=== PATIENT | female | born 1945 ===

== ENCOUNTER 2017-02-25 13:39 | Emergency (ER) | payer MEDICARE, MEDICAID ==
[2017-02-25 13:40] VITALS: BMI 27.7
[2017-02-25 14:15] VITALS: RESP 18
[2017-02-25] MEDS ORDERED: DiphenhydrAMINE 50 mg/ml Inj IM STA (15:35)
[2017-02-25] MEDS ORDERED: DiphenhydrAMINE 50 mg/ml Inj ONE (16:00)
--- NOTE | 2017-02-25 16:08 | C.PDOC ---
History Of Present Illness 71 y/o female presents to the ED complaining of itchy rash caused by unknown antibiotic. She states that Dr. Davenport gave her the antibiotic for unknown ear issue but she threw it away a few days ago when she noticed the rash. Patient also notes redness, itching, and pain to the b/l shins, left worse than right, for which she is being treated by Dr. Calderon. Patient states, "Dr. Calderon has not seen how bad it's gotten." She denies any fever, chills, shortness of breath , sensation of throat closing, wheezing, or chest pain. Time Seen by Provider: 02/25/17 15:17 Chief Complaint (Nursing): Allergic Reaction History Per: Patient History/Exam Limitations: no limitations Onset/Duration Of Symptoms: Days, Persistent Current Symptoms Are (Timing): Still Present Possible Cause: Medication Associated Symptoms: Skin Rash, Itching, Redness Recent travel outside of the [place]: No Past Medical History Reviewed: Historical Data, Nursing Documentation, Vital Signs Vital Signs: Last Vital Signs Temp 98.3 F 02/25/17 17:06 Pulse 87 02/25/17 17:06 Resp 18 02/25/17 17:06 BP 175/71 H 02/25/17 17:06 Pulse Ox 99 02/25/17 17:06 - Medical History PMH: Anemia, Anxiety, Asthma, Bronchitis, Depression, Diabetes, Gastritis, Gall Bladder Disease, Hepatitis (C), HTN, Osteoporosis, Chronic Pain Surgical History: Appendectomy, Cholecystectomy - [facility] Procedures CORONAR ARTERIOGR-2 CATH (08/02/15) INSPECTION OF LOWER INTESTINAL TRACT, ENDO (07/11/16) LEFT HEART CARDIAC CATH (08/02/15) LT HEART ANGIOCARDIOGRAM (08/02/15) OTHER ENDOSCOPY OF SM INTEST (07/09/13) VACCINATION NEC (07/16/14) Family History: States: No Known Family Hx - Social History Hx Tobacco Use: No Hx Alcohol Use: No Hx Substance Use: No - Immunization History Hx Tetanus Toxoid Vaccination: No Hx Influenza Vaccination: No Hx Pneumococcal Vaccination: Yes Review Of Systems Except As Marked, All Systems Reviewed And Found Negative. Constitutional: Negative for: Fever, Chills ENT: Negative for: Throat Swelling Cardiovascular: Negative for: Chest Pain Respiratory: Negative for: Shortness of Breath, Wheezing Skin: Positive for: Rash Physical Exam - Physical Exam Appears: Non-toxic, No Acute Distress Skin: Warm, Dry, Rash (urticarial rash to back and abdomen), Ecchymosis (scant, b/l shins, left > right) Head: Atraumatic, Normacephalic Eye(s): bilateral: Normal Inspection, PERRL Oral Mucosa: Moist Tongue: Normal Appearing, No Swelling Lips: Normal Appearing, No Swelling Throat: Normal Neck: Normal ROM, Supple Chest: Symmetrical Cardiovascular: Rhythm Regular Respiratory: Normal Breath Sounds, No Rales, No Rhonchi, No Wheezing Gastrointestinal/Abdominal: Soft, No Tenderness Extremity: Normal ROM, Other (2 + edema b/l lower extremities) Neurological/Psych: Oriented x3, Normal Speech, Normal Cognition ED Course And Treatment O2 Sat by Pulse Oximetry: 100 (a) Pulse Ox Interpretation: Normal Medical Decision Making Medical Decision Making: Plan: * Benadryl IM, Prednisone PO On reevaluation, the patient is resting comfortably, tolerating PO, has no shortness of breath, is able to tolerate secretions, has no intra-oral swelling , has no stridor; rash and pruritus have improved. Patient was advised to avoid potential allergens and to follow up with their physician in 1-2 days for further evaluation. Disposition - Disposition Referrals: Belinda Calderon MD [Medical Doctor] - Disposition: HOME/ ROUTINE Disposition Time: 16:45 Condition: GOOD Additional Instructions: Follow up with the medical doctor within 1-2 days. Return if worsened. 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 - Scribe Statement The provider has reviewed the documentation as recorded by the Scribe (Mariaelena Pearson) All medical record entries made by the Scribe were at my direction and personally dictated by me. I have reviewed the chart and agree that the record accurately reflects my personal performance of the history, physical exam, medical decision making, and the department course for this patient. I have also personally directed, reviewed, and agree with the discharge instructions and disposition.
[2017-02-25 17:08] VITALS: BP 175/71; PULSE 87; TEMP 98.3
[2017-03-01 10:23] VITALS: O2SAT 100
== END 2017-02-25 17:06 | disposition home or self-care (01) ==
LOC: C.ER 13:39
DX: L50.0 Allergic urticaria (principal)
CPT/HCPCS: 96372; 99284; J1200

== ENCOUNTER 2017-06-07 16:52 | Emergency (ER) | payer OTHER, MEDICARE, MEDICAID ==
[2017-06-07 16:52] VITALS: BMI 27.7
[2017-06-07 17:14] VITALS: RESP 18
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
--- NOTE | 2017-06-07 17:59 | RAD ---
HISTORY: COMPARISON: 07/11/2016 TECHNIQUE: Chest PA and lateral FINDINGS: LINES AND TUBES: None. LUNG AND PLEURA: The lungs are well inflated. There is mild pulmonary venous congestion. No focal consolidation. HEART AND MEDIASTINUM: The heart is not enlarged. The hilar and mediastinal contours are within normal limits. SKELETAL STRUCTURES: The bony structures are within normal limits for the patient's age. VISUALIZED UPPER ABDOMEN: Normal. OTHER FINDINGS: None. IMPRESSION: Mild pulmonary venous congestion. No active pulmonary disease.
[2017-06-07 18:30] VITALS: BP 114/65; PULSE 77; TEMP 98.1
[2017-06-08 09:11] VITALS: O2SAT 99
== END 2017-06-07 18:30 | disposition home or self-care (01) ==
LOC: C.ER 16:52
DX: M54.6 Pain in thoracic spine (principal)
CPT/HCPCS: 71020; 96372; 99285; J1885

== ENCOUNTER 2017-06-25 13:22 | Inpatient (IN) | payer MEDICARE, MEDICAID ==
[2017-06-25 13:23] VITALS: BMI 27.7
[2017-06-25] MEDS ORDERED: Lidocaine 5% Patch TD STA (14:10)
[2017-06-25] MEDS ORDERED: Lidocaine 5% Patch TD ONE (14:14)
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
[2017-06-25 16:20] LABS: BASO % 0.6 % (0.0-2.0); EOS # 0.1 K/uL (0.0-0.7); EOS % 2.7 % (0.0-4.0); HEMATOCRIT 24.5 % (34.0-47.0); LYMPH # 0.6 K/uL (1.0-4.3); LYMPH % 20.2 % (20.0-40.0); MEAN CELL VOLUME 91.5 fL (81.0-99.0); MEAN CORPUSCULAR HGB CONC 33.9 g/dL (33.0-37.0); MEAN PLATELET VOLUME 9.3 fL (7.2-11.7); MONO # 0.3 K/uL (0.0-0.8); MONO % 9.9 % (0.0-10.0); RED CELL DISTRIBUTION WIDTH 17.7 % (11.5-14.5); WHITE BLOOD COUNT 2.8 K/uL (4.8-10.8)
[2017-06-25 16:30] LABS: INR 1.4; POTASSIUM 4.8 mmol/L (3.6-5.2)
[2017-06-25 16:32] LABS: ALB/GLOB RATIO 0.9 (1.0-2.1); BILIRUBIN,TOTAL 1.7 mg/dL (0.2-1.3); TOTAL PROTEIN 6.2 g/dL (6.3-8.3)
[2017-06-25 16:33] LABS: CALCIUM 9.2 mg/dl (8.6-10.4)
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
[2017-06-25 20:24] LABS: RBC URINE < 1 /hpf (0-3); URINE BILIRUBIN NEGATIVE (NEGATIVE); URINE BLOOD NEGATIVE (NEGATIVE); URINE COLOR Yellow (YELLOW); URINE GLUCOSE (UA) 3+ mg/dL (Normal); URINE KETONE NEGATIVE (NEGATIVE); URINE LEUKOCYTE ESTERASE NEG Leu/uL (Negative); URINE PROTEIN NEGATIVE (NEGATIVE); URINE UROBILINOGEN NORMAL mg/dL (0.2-1.0); WBC URINE 1 /hpf (0-5)
[2017-06-25] MEDS: (Novolog) Insulin Aspart, Recombinant 100 u/ml 10 ml vial SC SCH (21:59)
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
[2017-06-26] MEDS: (Novolog) Insulin Aspart, Recombinant 100 u/ml 10 ml vial SC SCH ×4 (08:22→21:56)
[2017-06-26] MEDS: Pantoprazole 40 mg EC Tab PO SCH ×2 (09:13→09:28)
--- NOTE | 2017-06-26 09:14 | CP.PCM.CON ---
History of Present Illness - History of Present Illness History of Present Illness: CONSULT DICTATED HEADACHE POST CONCUSSION ABN CAT SCAN - I DOUBT SDH NEEDS MRI NO ANTIPLATELETS AND NSAIDS Past Patient History - Infectious Disease Hx of Infectious Diseases: None - Past Medical History & Family History Past Medical History?: Yes - Past Social History Smoking Status: Former Smoker - CARDIAC Hx Hypertension: Yes - PULMONARY Hx Asthma: Yes Hx Bronchitis: Yes - NEUROLOGICAL Hx Neurological Disorder: Yes Other/Comment: SEVERE NEUROPATHY, hepatic encephalopathy - HEENT Hx HEENT Problems: Yes Other/Comment: Dimished vision bilateral - RENAL Hx Chronic Kidney Disease: No - ENDOCRINE/METABOLIC Hx Endocrine Disorders: Yes Hx Diabetes Mellitus Type 2: Yes - HEMATOLOGICAL/ONCOLOGICAL Hx Anemia: Yes Hx Bruising: Yes Hx Hepatitis C: Yes - INTEGUMENTARY Hx Dermatological Problems: No Hx Psoriasis: Yes - MUSCULOSKELETAL/RHEUMATOLOGICAL Hx Arthritis: Yes (KNEE) Hx Degenerative Joint Disease: Yes Hx Falls: Yes Hx Osteoporosis: Yes - GASTROINTESTINAL Hx Gall Bladder Disease: Yes Hx Gastritis: Yes - GENITOURINARY/GYNECOLOGICAL Hx Genitourinary Disorders: No - PSYCHIATRIC Hx Anxiety: Yes Hx Depression: Yes Hx Substance Use: No - SURGICAL HISTORY Hx Appendectomy: Yes Hx Cholecystectomy: Yes - ANESTHESIA Hx Anesthesia: Yes Hx Anesthesia Reactions: No Hx Malignant Hyperthermia: No Has any member of the family had a problem w/ anesthesia?: No Meds Allergies/Adverse Reactions: Allergies Allergy/AdvReac Type Severity Reaction Status Date / Time acetaminophen [From Percocet] Allergy RASH Verified 06/07/17 17:14 aspirin Allergy RASH Verified 06/07/17 17:14 oxycodone HCl [From Percocet] Allergy RASH Verified 06/07/17 17:14 Penicillins Allergy RASH Verified 06/07/17 17:14 - Medications Medications: Current Medications Hydromorphone HCl (Dilaudid) 2 mg IVP Q6H PRN PRN Reason: Pain, severe (8-10) Last Admin: 06/25/17 22:57 Dose: 2 mg Insulin Aspart (Novolog) 0 unit SC ACHS INDRA PRN Reason: Protocol Last Admin: 06/26/17 08:22 Dose: 6 unit Lactulose (Enulose) 20 gm PO BID INDRA Pantoprazole Sodium (Protonix Ec Tab) 40 mg PO DAILY INDRA Temazepam (Restoril) 15 mg PO HS PRN PRN Reason: Insomnia Last Admin: 06/25/17 21:57 Dose: 15 mg Results - Vital Signs Recent Vital Signs: Last Vital Signs Temp 97.7 F 06/26/17 07:00 Pulse 103 H 06/26/17 07:00 Resp 20 06/26/17 07:00 BP 113/73 06/26/17 07:00 Pulse Ox 98 06/26/17 07:00 - Labs Result Diagrams: 06/25/17 16:15 06/25/17 16:15 Labs: Laboratory Results - last 24 hr 06/25/17 06/25/17 06/26/17 20:13 21:27 02:14 POC Glucose (mg/dL) 375 H 244 H Ammonia Prolactin Urine Color Yellow Urine Clarity Clear Urine pH 5.0 Ur Specific [place] 1.014 Urine Protein Negative Urine Glucose (UA) 3+ H Urine Ketones Negative Urine Blood Negative Urine Nitrate Negative Urine Bilirubin Negative Urine Urobilinogen Normal Ur Leukocyte Esterase Neg Urine WBC (Auto) 1 Urine RBC (Auto) < 1 Ur Squamous Epith Cells 3 06/26/17 06/26/17 06/26/17 06:03 07:58 07:58 POC Glucose (mg/dL) 269 H Ammonia 79 H D Prolactin 67.7 H Urine Color Urine Clarity Urine pH Ur Specific [place] Urine Protein Urine Glucose (UA) Urine Ketones Urine Blood Urine Nitrate Urine Bilirubin Urine Urobilinogen Ur Leukocyte Esterase Urine WBC (Auto) Urine RBC (Auto) Ur Squamous Epith Cells
[2017-06-26 11:41] LABS: IRON 187 ug/dL (37-170)
[2017-06-26 12:09] LABS: HEMATOCRIT 23.3 % (34.0-47.0); MEAN CORPUSCULAR HEMOGLOBIN 30.5 pg (27.0-31.0); MEAN CORPUSCULAR HGB CONC 34.4 g/dL (33.0-37.0); RED CELL DISTRIBUTION WIDTH 17.2 % (11.5-14.5); WHITE BLOOD COUNT 3.1 K/uL (4.8-10.8)
[2017-06-26 12:10] LABS: BASO % 0.3 % (0.0-2.0); EOS # 0.1 K/uL (0.0-0.7); EOS % 1.9 % (0.0-4.0); LYMPH # 0.5 K/uL (1.0-4.3); LYMPH % 14.4 % (20.0-40.0); MEAN PLATELET VOLUME 9.4 fL (7.2-11.7); MONO # 0.2 K/uL (0.0-0.8); MONO % 7.3 % (0.0-10.0); NRBC % 0.1 % (0.0-2.0)
[2017-06-26 12:13] LABS: MEAN CELL VOLUME 88.7 fL (81.0-99.0)
--- NOTE | 2017-06-26 12:52 | MRI ---
PROCEDURE: MRI BRAIN WITHOUT CONTRAST HISTORY: sub dural hematoma in falx COMPARISON: None. TECHNIQUE: Multiplanar, multisequence MR images of the brain were obtained without intravenous contrast enhancement. FINDINGS: HEMORRHAGE: There is subdural hematoma seen at the right aspect of the posterior infarcts and along the right temporal parietal and occipital convexity. The maximum thickness of this subdural hematoma seen at the temporal region 4.5 millimeter. The subdural hematoma demonstrate hyperintense T1, hyperintense T2 and hyperintense FLAIR signals which indicated subacute hematoma. DWI: No evidence of an acute or early subacute infarction. The right convexity hematoma also demonstrate hyperintense DW I signal. BRAIN PARENCHYMA: No mass effect or edema. Moderate atrophy is noted. There is extensive white matter changes seen suggestive but nonspecific for chronic microvascular ischemic disease. Small foci of hypo intense T1 signal seen in the bilateral lentiform nucleus may represent old lacunar infarct versus dilated perivascular space. VENTRICLES: Unremarkable. No hydrocephalus. CRANIUM: Unremarkable. ORBITS: Grossly unremarkable. PARANASAL SINUSES/MASTOIDS: Clear VASCULAR SYSTEM: Skull base flow voids intact. OTHER FINDINGS: None. IMPRESSION: Subacute subdural hematoma along the posterior aspect of the right cerebral convexity and posterior right aspect of the falx. Maximum thickness of the subdural hematoma is 4.5 millimeter Moderate atrophy and extensive white matter changes suggestive but nonspecific for chronic microvascular ischemic disease. No evidence of acute or subacute infarction.
--- NOTE | 2017-06-26 16:53 | CP.PCM.CON ---
History of Present Illness - History of Present Illness History of Present Illness: CC: rectal Bleed HPI: Patient is a 72 year old woman with multiple medical problems, admitted for possible subdural hematoma. Patient known to me with history of Cirrhosis and thromboctopenia, esophageal and gastric varices, and chronic intermittent rectal bleeds due to thrombocytopenia. Colonoscopy and endoscopy were performed last year and revealed varices in esophagus and stomach, diverticulosis in the colon. She is followed by Dr Melany Arguello for cirrhosis and apparently treated with Harvoni and resulted in undetectable Hep C viral load. Sono in December did not reveal any suspicious lesions in liver for hepatoma. Patient saw red blood per rectum last night after taking Lactulose and developed profuse vomiting, nonbloody, of digested food earlier today after taking Lactulose. The patient has chronic neuropathy symptoms, presumably from Diabetes and chronic leg edema. Patient is chronically anemic and now has Hgb 8, essentially unchanged from baseline. Review of Systems - Constitutional Constitutional: Chills, Fatigue, Weakness - EENT Eyes: absent: Change in Vision Ears: absent: Ear Pain Nose/Mouth/Throat: absent: Epistaxis, Hoarsness - Cardiovascular Cardiovascular: absent: Chest Pain - Respiratory Respiratory: absent: Dyspnea, Hemoptysis - Gastrointestinal Gastrointestinal: Abdominal Pain, Bloating, Constipation, Hematochezia, Nausea. absent: Coffee Ground Emesis, Heartburn, Hematemesis, Melena - Genitourinary Genitourinary: absent: Difficulty Urinating - Musculoskeletal Musculoskeletal: Myalgias. absent: Back Pain - Integumentary Integumentary: absent: Bleeding Lesions, Jaundice - Neurological Neurological: Paresthesias. absent: Headaches - Psychiatric Psychiatric: absent: Behavioral Changes - Endocrine Endocrine: absent: Polydipsia - Hematologic/Lymphatic Hematologic: Easy Bleeding, Easy Bruising Past Patient History - Infectious Disease Hx of Infectious Diseases: None - Past Medical History & Family History Past Medical History?: Yes - Past Social History Smoking Status: Former Smoker - CARDIAC Hx Hypertension: Yes - PULMONARY Hx Asthma: Yes Hx Bronchitis: Yes - NEUROLOGICAL Hx Neurological Disorder: Yes Other/Comment: SEVERE NEUROPATHY, hepatic encephalopathy - HEENT Hx HEENT Problems: Yes Other/Comment: Dimished vision bilateral - RENAL Hx Chronic Kidney Disease: No - ENDOCRINE/METABOLIC Hx Endocrine Disorders: Yes Hx Diabetes Mellitus Type 2: Yes - HEMATOLOGICAL/ONCOLOGICAL Hx Anemia: Yes Hx Bruising: Yes Hx Hepatitis C: Yes - INTEGUMENTARY Hx Dermatological Problems: No Hx Psoriasis: Yes - MUSCULOSKELETAL/RHEUMATOLOGICAL Hx Arthritis: Yes (KNEE) Hx Degenerative Joint Disease: Yes Hx Falls: Yes Hx Osteoporosis: Yes - GASTROINTESTINAL Hx Gall Bladder Disease: Yes Hx Gastritis: Yes - GENITOURINARY/GYNECOLOGICAL Hx Genitourinary Disorders: No - PSYCHIATRIC Hx Anxiety: Yes Hx Depression: Yes Hx Substance Use: No - SURGICAL HISTORY Hx Appendectomy: Yes Hx Cholecystectomy: Yes - ANESTHESIA Hx Anesthesia: Yes Hx Anesthesia Reactions: No Hx Malignant Hyperthermia: No Has any member of the family had a problem w/ anesthesia?: No Meds Allergies/Adverse Reactions: Allergies Allergy/AdvReac Type Severity Reaction Status Date / Time acetaminophen [From Percocet] Allergy RASH Verified 06/07/17 17:14 aspirin Allergy RASH Verified 06/07/17 17:14 oxycodone HCl [From Percocet] Allergy RASH Verified 06/07/17 17:14 Penicillins Allergy RASH Verified 06/07/17 17:14 - Medications Medications: Current Medications Hydromorphone HCl (Dilaudid) 2 mg IVP Q6H PRN PRN Reason: Pain, severe (8-10) Last Admin: 06/25/17 22:57 Dose: 2 mg Insulin Aspart (Novolog) 0 unit SC ACHS INDRA PRN Reason: Protocol Last Admin: 06/26/17 12:20 Dose: 2 unit Lactulose (Enulose) 20 gm PO TID [facility] [place] Last Admin: 06/26/17 14:24 Dose: Not Given Pantoprazole Sodium (Protonix Ec Tab) 40 mg PO DAILY [facility] Last Admin: 06/26/17 09:28 Dose: Not Given Temazepam (Restoril) 15 mg PO HS PRN PRN Reason: Insomnia Last Admin: 06/25/17 21:57 Dose: 15 mg Physical Exam - Constitutional Appears: No Acute Distress, Chronically Ill - Head Exam Head Exam: ATRAUMATIC, NORMOCEPHALIC - Eye Exam Eye Exam: Normal appearance (Pale conjunctivae). absent: Scleral icterus - ENT Exam ENT Exam: Mucous Membranes Moist, Normal Exam - Neck Exam Neck exam: Positive for: Normal Inspection. Negative for: Thyromegaly - Respiratory Exam Respiratory Exam: Clear to Auscultation Bilateral - Cardiovascular Exam Cardiovascular Exam: REGULAR RHYTHM - GI/Abdominal Exam GI & Abdominal Exam: Soft. absent: Distended, Guarding, Mass, Organomegaly, Tenderness - Rectal Exam Rectal Exam: Deferred - Extremities Exam Extremities exam: Positive for: pedal edema - Back Exam Back exam: NORMAL INSPECTION - Neurological Exam Neurological exam: Alert, Oriented x3 - Psychiatric Exam Psychiatric exam: Normal Affect, Normal Mood - Skin Skin Exam: Normal Color Results - Vital Signs Recent Vital Signs: Last Vital Signs Temp 97.7 F 06/26/17 07:00 Pulse 110 H 06/26/17 12:40 Resp 20 06/26/17 07:00 BP 113/73 06/26/17 07:00 Pulse Ox 98 06/26/17 07:00 - Labs Result Diagrams: 06/26/17 12:06 06/25/17 16:15 Labs: Laboratory Results - last 24 hr 06/25/17 06/25/17 06/26/17 20:13 21:27 02:14 WBC RBC Hgb Hct MCV MCH MCHC RDW Plt Count Manual Plt Count MPV Neut % (Auto) Lymph % (Auto) [place] % (Auto) Eos % (Auto) Baso % (Auto) Neut # Lymph # [place] # Eos # Baso # Fibrinogen POC Glucose (mg/dL) 375 H 244 H Iron TIBC % Saturation Ferritin Ammonia Vitamin B12 Prolactin Urine Color Yellow Urine Clarity Clear Urine pH 5.0 Ur Specific [place] 1.014 Urine Protein Negative Urine Glucose (UA) 3+ H Urine Ketones Negative Urine Blood Negative Urine Nitrate Negative Urine Bilirubin Negative Urine Urobilinogen Normal Ur Leukocyte Esterase Neg Urine WBC (Auto) 1 Urine RBC (Auto) < 1 Ur Squamous Epith Cells 3 06/26/17 06/26/17 06/26/17 06:03 07:58 07:58 WBC RBC Hgb Hct MCV MCH MCHC RDW Plt Count Manual Plt Count MPV Neut % (Auto) Lymph % (Auto) [place] % (Auto) Eos % (Auto) Baso % (Auto) Neut # Lymph # [place] # Eos # Baso # Fibrinogen POC Glucose (mg/dL) 269 H Iron TIBC % Saturation Ferritin Ammonia 79 H D Vitamin B12 Prolactin 67.7 H Urine Color Urine Clarity Urine pH Ur Specific [place] Urine Protein Urine Glucose (UA) Urine Ketones Urine Blood Urine Nitrate Urine Bilirubin Urine Urobilinogen Ur Leukocyte Esterase Urine WBC (Auto) Urine RBC (Auto) Ur Squamous Epith Cells 06/26/17 06/26/17 06/26/17 10:51 11:21 11:21 WBC RBC Hgb Hct MCV MCH MCHC RDW Plt Count Manual Plt Count 34 L MPV Neut % (Auto) Lymph % (Auto) [place] % (Auto) Eos % (Auto) Baso % (Auto) Neut # Lymph # [place] # Eos # Baso # Fibrinogen 158 L POC Glucose (mg/dL) 169 H Iron TIBC % Saturation Ferritin Ammonia Vitamin B12 Prolactin Urine Color Urine Clarity Urine pH Ur Specific [place] Urine Protein Urine Glucose (UA) Urine Ketones Urine Blood Urine Nitrate Urine Bilirubin Urine Urobilinogen Ur Leukocyte Esterase Urine WBC (Auto) Urine RBC (Auto) Ur Squamous Epith Cells 06/26/17 06/26/17 06/26/17 11:21 11:21 12:06 WBC 3.1 L RBC 2.63 L Hgb 8.0 L Hct 23.3 L MCV 88.7 D MCH 30.5 MCHC 34.4 RDW 17.2 H Plt Count 37 L Manual Plt Count MPV 9.4 Neut % (Auto) 76.1 H Lymph % (Auto) 14.4 L [place] % (Auto) 7.3 Eos % (Auto) 1.9 Baso % (Auto) 0.3 Neut # 2.4 Lymph # 0.5 L [place] # 0.2 Eos # 0.1 Baso # 0.0 Fibrinogen POC Glucose (mg/dL) Iron 187 H TIBC 326 % Saturation 57 H Ferritin 26.6 Ammonia Vitamin B12 893 Prolactin Urine Color Urine Clarity Urine pH Ur Specific [place] Urine Protein Urine Glucose (UA) Urine Ketones Urine Blood Urine Nitrate Urine Bilirubin Urine Urobilinogen Ur Leukocyte Esterase Urine WBC (Auto) Urine RBC (Auto) Ur Squamous Epith Cells Assessment & Plan (1) Subdural hematoma Assessment and Plan: Workup by neurology in progress Status: Acute (2) GI bleed Assessment and Plan: Hematochezia- chronic intermittent due to thrombocytopenia. No major drop in Hgb Rec: decrease Lactulose to once daily. Add Xifaxan. Would not transfuse PRBCs unless Hgb drops below 8 due to varices and risk of bleeding varices from overtransfusion. If bleed persists consider transfusing platelets Status: Acute (3) Hepatic encephalopathy Assessment and Plan: Stable Since patient not tolerating Lactulose in hospital, can try Xifaxan instead Status: Acute (4) Cirrhosis of liver Assessment and Plan: Managed as outpatient by Dr Arguello. Stable. Encephalopathy, thrombocytopenia, and varices present. Should be on beta blockers too Status: Chronic - Date & Time Date: 06/26/17 Time: 16:59
--- NOTE | 2017-06-26 17:59 | CARD ---
APPROVED REPORT EKG Measurement Heart [id number] <Conclusion> Normal sinus rhythm Normal ECG
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
[2017-06-27 07:45] LABS: BASO % 0.6 % (0.0-2.0); EOS # 0.1 K/uL (0.0-0.7); EOS % 3.1 % (0.0-4.0); HEMATOCRIT 22.1 % (34.0-47.0); LYMPH # 0.5 K/uL (1.0-4.3); LYMPH % 16.7 % (20.0-40.0); MEAN CELL VOLUME 88.7 fL (81.0-99.0); MEAN CORPUSCULAR HEMOGLOBIN 30.5 pg (27.0-31.0); MEAN CORPUSCULAR HGB CONC 34.3 g/dL (33.0-37.0); MEAN PLATELET VOLUME 9.1 fL (7.2-11.7); MONO # 0.2 K/uL (0.0-0.8); MONO % 7.5 % (0.0-10.0); NRBC % 0.1 % (0.0-2.0); RED CELL DISTRIBUTION WIDTH 17.2 % (11.5-14.5); WHITE BLOOD COUNT 2.8 K/uL (4.8-10.8)
[2017-06-27] MEDS: (Novolog) Insulin Aspart, Recombinant 100 u/ml 10 ml vial SC SCH ×4 (08:22→22:08)
--- NOTE | 2017-06-27 09:52 | CP.PCM.PN ---
Subjective - Date & Time of Evaluation Date of Evaluation: 06/27/17 Time of Evaluation: 03:00 - Subjective Subjective: Patient seen- pain is improving ongoing blood transfusion no headache discussion of medication adjustment no change in sensorium discussion of subacute when ready to discharge Objective - Vital Signs/Intake and Output Vital Signs (last 24 hours): Temp Pulse Resp BP Pulse Ox 98.2 F 75 18 117/55 L 97 06/27/17 07:05 06/27/17 08:00 06/27/17 07:05 06/27/17 07:05 06/27/17 07:05 - Medications Medications: Current Medications Hydromorphone HCl (Dilaudid) 2 mg IVP Q6H PRN PRN Reason: Pain, severe (8-10) Last Admin: 06/26/17 21:58 Dose: 2 mg Insulin Aspart (Novolog) 0 unit SC ACHS INDRA PRN Reason: Protocol Last Admin: 06/27/17 08:22 Dose: 4 unit Lactulose (Enulose) 20 gm PO HS [facility] Last Admin: 06/26/17 22:01 Dose: Not Given Pantoprazole Sodium (Protonix Ec Tab) 40 mg PO DAILY [facility] Last Admin: 06/26/17 09:28 Dose: Not Given Propranolol HCl (Inderal) 10 mg PO TID [facility] Last Admin: 06/26/17 20:40 Dose: 10 mg Rifaximin (Xifaxan) 550 mg PO BID [facility] Last Admin: 06/26/17 20:40 Dose: 550 mg Temazepam (Restoril) 15 mg PO HS PRN PRN Reason: Insomnia Last Admin: 06/25/17 21:57 Dose: 15 mg - Labs Labs: 06/27/17 07:18 PT 16.0 SECONDS (9.7-12.2) H 06/25/17 16:15 INR 1.4 06/25/17 16:15 APTT 40 SECONDS (21-34) H 06/25/17 16:15 - Constitutional Appears: Non-toxic - Head Exam Head Exam: ATRAUMATIC, NORMOCEPHALIC - Eye Exam Eye Exam: absent: Nystagmus, Periorbital swelling - ENT Exam ENT Exam: Mucous Membranes Moist - Neck Exam Neck Exam: Full ROM. absent: Tenderness - Respiratory Exam Respiratory Exam: Clear to Ausculation Bilateral, NORMAL BREATHING PATTERN - Cardiovascular Exam Cardiovascular Exam: REGULAR RHYTHM - GI/Abdominal Exam GI & Abdominal Exam: Soft, Normal Bowel Sounds. absent: Distended, Tenderness - Extremities Exam Extremities Exam: absent: Joint Swelling, Pedal Edema - Neurological Exam Neurological Exam: Alert, Awake, Normal Gait (with some limitation due to knee arthritis ), Oriented x3 - Psychiatric Exam Psychiatric exam: Normal Affect, Normal Mood - Skin Skin Exam: Intact, Normal Color Assessment and Plan - Assessment and Plan (Free Text) Assessment: Patient with chronic Cirrhosis Metabolic Encephalopathy DM Pancytopenia admitted due to Subdural hematoma- currently stable no change in consciousness, Cirrhosi Metabolic Encephalopathy,Varices-GIB0- on lactulose adjusted dose, medication adjusted Pancytopenia chronic-with acute anemia- receiving prbc transfusion Debility DJD- discussed subacute - for PT/Rehab referral patient is very much aware of condition and agreed to plan
[2017-06-27] MEDS: Pantoprazole 40 mg EC Tab PO SCH (10:50)
--- NOTE | 2017-06-27 11:26 | CP.PCM.PN ---
Subjective - Date & Time of Evaluation Date of Evaluation: 06/27/17 Time of Evaluation: 07:45 - Subjective Subjective: F/U r bleed Reports no further bleeding. Occ abdom cramps Denies Fever, melena, GARCIA, cough dysphagia, SZ, hematuria, hemoptysis Objective - Vital Signs/Intake and Output Vital Signs (last 24 hours): Temp Pulse Resp BP Pulse Ox 98.2 F 75 18 117/55 L 97 06/27/17 07:05 06/27/17 08:00 06/27/17 07:05 06/27/17 07:05 06/27/17 07:05 - Medications Medications: Current Medications Hydromorphone HCl (Dilaudid) 2 mg IVP Q6H PRN PRN Reason: Pain, severe (8-10) Last Admin: 06/26/17 21:58 Dose: 2 mg Insulin Aspart (Novolog) 0 unit SC ACHS INDRA PRN Reason: Protocol Last Admin: 06/27/17 08:22 Dose: 4 unit Lactulose (Enulose) 20 gm PO HS [facility] Last Admin: 06/26/17 22:01 Dose: Not Given Pantoprazole Sodium (Protonix Ec Tab) 40 mg PO DAILY [facility] Last Admin: 06/26/17 09:28 Dose: Not Given Propranolol HCl (Inderal) 10 mg PO TID [facility] Last Admin: 06/26/17 20:40 Dose: 10 mg Rifaximin (Xifaxan) 550 mg PO BID [facility] Last Admin: 06/26/17 20:40 Dose: 550 mg Temazepam (Restoril) 15 mg PO HS PRN PRN Reason: Insomnia Last Admin: 06/25/17 21:57 Dose: 15 mg - Labs Labs: 06/27/17 07:18 PT 16.0 SECONDS (9.7-12.2) H 06/25/17 16:15 INR 1.4 06/25/17 16:15 APTT 40 SECONDS (21-34) H 06/25/17 16:15 - Constitutional Appears: Well - Neck Exam Neck Exam: Full ROM - Respiratory Exam Respiratory Exam: Clear to Ausculation Bilateral - Cardiovascular Exam Cardiovascular Exam: RRR - GI/Abdominal Exam GI & Abdominal Exam: Soft, Normal Bowel Sounds. absent: Tenderness - Neurological Exam Neurological Exam: Alert, Awake, Oriented x3 Assessment and Plan (1) Subdural hematoma Status: Acute (2) Hepatic encephalopathy Status: Acute (3) Lower GI bleed Assessment & Plan: Likely hemorrhoids and low PLTS. Had EGD and colonsoocpy done. Check Hbs. Consdier PLTs if bleeding worsens. Status: Acute (4) Pancytopenia Assessment & Plan: Cirrhosis Status: Acute (5) Cirrhosis of liver Status: Chronic (6) Thrombocytopenia Assessment & Plan: cirrhosis Status: Acute
[2017-06-27] MEDS ORDERED: DiphenhydrAMINE 50 mg/ml Inj IVP PRN (12:49)
[2017-06-27] MEDS ORDERED: MethylPREDNISolone 40 mg Vial IVP PRN (12:53)
[2017-06-27 15:56] VITALS: RESP 20
[2017-06-28 06:29] LABS: HEMATOCRIT 27.3 % (34.0-47.0); MEAN CELL VOLUME 88.7 fL (81.0-99.0); MEAN CORPUSCULAR HEMOGLOBIN 31.1 pg (27.0-31.0); MEAN PLATELET VOLUME 9.6 fL (7.2-11.7); RED CELL DISTRIBUTION WIDTH 16.9 % (11.5-14.5); WHITE BLOOD COUNT 2.3 K/uL (4.8-10.8)
--- NOTE | 2017-06-28 08:03 | CP.PCM.PN ---
Subjective - Date & Time of Evaluation Date of Evaluation: 06/28/17 Time of Evaluation: 08:00 - Subjective Subjective: F/U r bleed Reporrts only minimal bleeding. Reports mild lower abdom cramps Denies fever, chills, SZ, LOC, GARCIA, cough, CP, SOB, Hematuriia Objective - Vital Signs/Intake and Output Vital Signs (last 24 hours): Temp Pulse Resp BP Pulse Ox 97.9 F 73 20 147/66 98 06/27/17 23:25 06/28/17 00:40 06/27/17 23:25 06/27/17 23:25 06/27/17 23:25 Intake and Output: 06/28/17 06/28/17 06:59 18:59 Intake Total 1070 Output Total 600 Balance 470 - Medications Medications: Current Medications Bumetanide (Bumex) 1 mg PO DAILY [facility] Diphenhydramine HCl (Benadryl) 25 mg IVP ONCE PRN PRN Reason: 30 min prior to transfusion Last Admin: 06/27/17 16:32 Dose: 25 mg Gabapentin (Neurontin) 300 mg PO BID [facility] Hydromorphone HCl (Dilaudid) 2 mg IVP Q6H PRN PRN Reason: Pain, severe (8-10) Last Admin: 06/27/17 22:09 Dose: 2 mg Insulin Aspart (Novolog) 0 unit SC ACHS [facility] PRN Reason: Protocol Last Admin: 06/27/17 22:08 Dose: 2 unit Lactulose (Enulose) 20 gm PO HS [facility] Last Admin: 06/27/17 22:08 Dose: 20 gm Methylprednisolone (Solu-Medrol) 40 mg IVP ONCE PRN PRN Reason: 30 min prior to transfusion Last Admin: 06/27/17 16:32 Dose: 40 mg Pantoprazole Sodium (Protonix Ec Tab) 40 mg PO DAILY [facility] Last Admin: 06/27/17 10:50 Dose: 40 mg Propranolol HCl (Inderal) 10 mg PO TID [facility] Last Admin: 06/27/17 18:18 Dose: 10 mg Rifaximin (Xifaxan) 550 mg PO BID [facility] Last Admin: 06/27/17 18:18 Dose: 550 mg Temazepam (Restoril) 15 mg PO HS PRN PRN Reason: Insomnia Last Admin: 08/15/17 21:57 Dose: 15 mg - Labs Labs: 06/28/17 06:21 PT 16.0 SECONDS (9.7-12.2) H 06/25/17 16:15 INR 1.4 06/25/17 16:15 APTT 40 SECONDS (21-34) H 06/25/17 16:15 - Constitutional Appears: Well - Respiratory Exam Respiratory Exam: Clear to Ausculation Bilateral - Cardiovascular Exam Cardiovascular Exam: RRR - GI/Abdominal Exam GI & Abdominal Exam: Soft, Normal Bowel Sounds. absent: Tenderness - Extremities Exam Extremities Exam: absent: Calf Tenderness - Neurological Exam Neurological Exam: Alert, Oriented x3 Assessment and Plan (1) Subdural hematoma Status: Acute (2) Hepatic encephalopathy Assessment & Plan: lactulose Status: Acute (3) Lower GI bleed Assessment & Plan: hemorrhoids. Bleeding is less. Treat with anusol. Hemorrhoid surgery is more risk in a cirhotic. Colonoscopy and EGD done few months ago. Status: Acute (4) Pancytopenia Status: Acute (5) Cirrhosis of liver Status: Chronic (6) Thrombocytopenia Assessment & Plan: promotes bleeding Status: Acute
[2017-06-28] MEDS: (Novolog) Insulin Aspart, Recombinant 100 u/ml 10 ml vial SC SCH ×4 (08:43→22:15)
[2017-06-28] MEDS: Pantoprazole 40 mg EC Tab PO SCH (09:05)
[2017-06-28] MEDS ORDERED: (Lantus) Insulin Glargine, Recombinant SC SCH (10:30)
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
--- NOTE | 2017-06-28 11:04 | PN ---
DATE: 06/27/2017 NEUROLOGICAL PROBLEM: Post-traumatic and postconcussion syndrome with subdural hematoma. PHYSICAL EXAMINATION VITAL SIGNS: Blood pressure of 118/64, mean arterial pressure of 82, respiratory rate of 16, and temperature is afebrile. The patient's the examination is unchanged to compared with the previously examination. The patient is complaining of headache, no nausea, no vomiting, no visual, or bulbar dysfunction. Previously complaining of the tremor, which has been there for long time. The patient's MRI of the brain confirmed with the subdural hematoma which is probably posterior concussion syndrome related to her coagulopathy. The patient should be off her anti-platelets and NSAIDs. The patient can be treated symptomatically for headache, as she has been getting treatment. Her head tremor is probably secondary to her existing neuropathy. Have been medically stable, the patient can be discharged. She would have follow up visit with me as outpatient. The patient needs electrodiagnostic studies which can be done as an outpatient. Gutierrez Mckeon MD
[2017-06-28 16:37] VITALS: BP 119/61; PULSE 80; TEMP 98.4; O2SAT 96
--- NOTE | 2017-06-28 22:20 | CON ---
HISTORY: Her hemoglobin had dropped down to 7.6 from the hemorrhoidal bleeding. We transfused one unit of blood, went up to 9.6. Platelets are relatively stable at about 30,000. White count is relatively stable at about 2.5, and she stopped bleeding as far as today is concerned. I spoke with Dr. Washington, the patient has already had colonoscopy and evaluation. These were all from hemorrhoids. She is at very high risk of surgical complications. She has pretty severe cirrhotic decompensation of the liver, so at this point, no treatment for the platelets, they are about 30,000 and stable. No treatments for the white cells and hemoglobin is 9.6 and relatively stable unless she bleeds. If she bleeds down to a hemoglobin below about 8.5, I will give her transfusion. Rohit Brewster MD
--- NOTE | 2017-06-28 22:35 | EEG ---
DATE: CONDITION OF THE RECORDING: This is a 16-channel electroencephalogram of awake and drowsy adult. During the study, photic stimulation was performed. Hyperventilation was not performed. The resting electroencephalogram consists of 20-30 mV, 9-11 Hz alpha activities seen at parietal and occipital leads. Anteriorly, fast activity superimposed with 2 to 3 Hz, with delta activities seen at frontal and central leads. Some movement artifact and the muscle artifact contaminated the background rhythm. The photic stimulation did not evoke driving response noted at 2 to 20 Hz. IMPRESSION: This is a normal electroencephalogram of awake and drowsy adult. During the study, neither electroencephalographic paroxysmal activities nor focal slowing noted. Gutierrez Mckoen MD
--- NOTE | 2017-06-29 07:43 | CP.PCM.DIS ---
Provider - Provider Date of Admission: 06/25/17 17:49 Attending physician: Belinda Calderon MD Time Spent in preparation of Discharge (in minutes): 30 Hospital Course - Lab Results Lab Results: Most Recent Lab Values WBC 2.3 K/uL (4.8-10.8) L 06/28/17 06:21 RBC 3.08 Mil/uL (3.80-5.20) L 06/28/17 06:21 Hgb 9.6 g/dL (11.0-16.0) L D 06/28/17 06:21 Hct 27.3 % (34.0-47.0) L 06/28/17 06:21 MCV 88.7 fL (81.0-99.0) 06/28/17 06:21 MCH 31.1 pg (27.0-31.0) H 06/28/17 06:21 MCHC 35.0 g/dL (33.0-37.0) 06/28/17 06:21 RDW 16.9 % (11.5-14.5) H 06/28/17 06:21 Plt Count 28 K/uL (130-400) L* 06/28/17 06:21 Manual Plt Count 34 K/uL (130-400) L 06/26/17 11:21 MPV 9.6 fL (7.2-11.7) 06/28/17 06:21 Neut % (Auto) 72.1 % (50.0-75.0) 06/27/17 07:18 Lymph % (Auto) 16.7 % (20.0-40.0) L 06/27/17 07:18 [place] % (Auto) 7.5 % (0.0-10.0) 06/27/17 07:18 Eos % (Auto) 3.1 % (0.0-4.0) 06/27/17 07:18 Baso % (Auto) 0.6 % (0.0-2.0) 06/27/17 07:18 Neut # 2.0 K/uL (1.8-7.0) 06/27/17 07:18 Lymph # 0.5 K/uL (1.0-4.3) L 06/27/17 07:18 [place] # 0.2 K/uL (0.0-0.8) 06/27/17 07:18 Eos # 0.1 K/uL (0.0-0.7) 06/27/17 07:18 Baso # 0.0 K/uL (0.0-0.2) 06/27/17 07:18 Differential Comment 06/25/17 16:15 PT 16.0 SECONDS (9.7-12.2) H 06/25/17 16:15 INR 1.4 06/25/17 16:15 APTT 40 SECONDS (21-34) H 06/25/17 16:15 Fibrinogen 158 mg/dL (200-400) L 06/26/17 11:21 Sodium 132 mmol/L (132-148) 06/25/17 16:15 Potassium 4.8 mmol/L (3.6-5.2) 06/25/17 16:15 Chloride 101 mmol/L (98-107) 06/25/17 16:15 Carbon Dioxide 24 mmol/L (22-30) 06/25/17 16:15 Anion Gap 12 (10-20) 06/25/17 16:15 BUN 20 mg/dL (7-17) H 06/25/17 16:15 Creatinine 1.1 MG/DL (0.7-1.2) 06/25/17 16:15 Est GFR ( Amer) 59 06/25/17 16:15 Est GFR (Non-Af Amer) 49 06/25/17 16:15 POC Glucose (mg/dL) 338 mg/dL (65-110) H 06/28/17 21:26 Random Glucose 289 mg/dL (65-105) H 06/25/17 16:15 Calcium 9.2 mg/dl (8.6-10.4) 06/25/17 16:15 Iron 187 ug/dL (37-170) H 06/26/17 11:21 TIBC 326 ug/dL (250-450) 06/26/17 11:21 % Saturation 57 (20-55) H 06/26/17 11:21 Ferritin 26.6 ng/mL 06/26/17 11:21 Total Bilirubin 1.7 mg/dL (0.2-1.3) H 06/25/17 16:15 AST 27 U/L (14-36) 06/25/17 16:15 ALT 25 U/L (9-52) 06/25/17 16:15 Alkaline Phosphatase 169 U/L (38-126) H D 06/25/17 16:15 Ammonia 79 umol/L (9-33) H D 06/26/17 07:58 Total Protein 6.2 g/dL (6.3-8.3) L 06/25/17 16:15 Albumin 2.9 g/dL (3.5-5.0) L 06/25/17 16:15 Globulin 3.3 gm/dL (2.2-3.9) 06/25/17 16:15 Albumin/Globulin Ratio 0.9 (1.0-2.1) L 06/25/17 16:15 Vitamin B12 893 pg/mL (239-931) 06/26/17 11:21 Prolactin 67.7 ng/mL (3.0-18.9) H 06/26/17 07:58 Urine Color Yellow (YELLOW) 06/25/17 20:13 Urine Clarity Clear (Clear) 06/25/17 20:13 Urine pH 5.0 (5.0-8.0) 06/25/17 20:13 Ur Specific [place] 1.014 (1.003-1.030) 06/25/17 20:13 Urine Protein Negative mg/dL (NEGATIVE) 06/25/17 20:13 Urine Glucose (UA) 3+ mg/dL (Normal) H 06/25/17 20:13 Urine Ketones Negative mg/dL (NEGATIVE) 06/25/17 20:13 Urine Blood Negative (NEGATIVE) 06/25/17 20:13 Urine Nitrate Negative (NEGATIVE) 06/25/17 20:13 Urine Bilirubin Negative (NEGATIVE) 06/25/17 20:13 Urine Urobilinogen Normal mg/dL (0.2-1.0) 06/25/17 20:13 Ur Leukocyte Esterase Neg Jaxon/uL (Negative) 06/25/17 20:13 Urine WBC (Auto) 1 /hpf (0-5) 06/25/17 20:13 Urine RBC (Auto) < 1 /hpf (0-3) 06/25/17 20:13 Ur Squamous Epith Cells 3 /hpf (0-5) 06/25/17 20:13 Blood Type O POSITIVE 06/27/17 11:30 Antibody Screen Positive 06/27/17 11:30 Antibody Identification Anti E 06/27/17 11:30 - Hospital Course Hospital Course: came to ER due to headache back pain- CT CHEST unremarkable. CT brain MRI subdural hematoma with normal EEG normal neuro, has chronic Cirrhosis Pancytopenia, metabolic encephalopathy- was btransfused withPRBC due to acute anemia, improved with pain meds and was transferred to subacute Discharge Exam - Head Exam Head Exam: ATRAUMATIC, NORMOCEPHALIC - Eye Exam Eye Exam: Normal appearance - ENT Exam ENT Exam: Mucous Membranes Moist - Respiratory Exam Respiratory Exam: Clear to PA & Lateral, NORMAL BREATHING PATTERN - Cardiovascular Exam Cardiovascular Exam: REGULAR RHYTHM - GI/Abdominal Exam GI & Abdominal Exam: Normal Bowel Sounds, Soft. absent: Tenderness - Extremities Exam Extremities exam: full ROM, pedal pulses present - Neurological Exam Neurological exam: Alert, Oriented x3 - Psychiatric Exam Psychiatric exam: Normal Affect, Normal Mood - Skin Skin Exam: Intact, Normal Color Discharge Plan - Follow Up Plan Condition: GUARDED Disposition: REHAB FACILITY/REHAB UNIT Instructions: Heart Healthy Diet (DC), Subdural Hematoma (DC) Additional Instructions: PLEASE PLACE UNDER THE SERVICE OF DR CALDERON WHILE AT [facility]- CALL UPON ARRIVAL WITH BED ASSIGNMENT AND FOR ADMITTING ORDERS CONTINUE ALL MEDICATIONS PER MED REC FALL PRECAUTIONS PER FACILITY PROTOCOL FOR FURTHER ORDERS, GIOVANNA DR CALDERON Referrals: Gianluca Washington MD [Staff Provider] -
== END 2017-06-28 23:20 | DRG 102 ==
LOC: C.ER 13:22 → C.9E 17:49 → C.6T 19:47
PROVIDERS: ADMIT Internal Medicine; ATTEND Internal Medicine
PROC: 30233N1 Transfusion of Nonautologous Red Blood Cells into Peripheral Vein, Percutaneous Approach (ICD-10-PCS; principal; 2017-06-25)
DX: F07.81 Postconcussional syndrome (principal); G93.41 Metabolic encephalopathy; D61.818 Other pancytopenia; D68.9 Coagulation defect, unspecified; E11.40 Type 2 diabetes mellitus with diabetic neuropathy, unspecified; S06.5X0D Traumatic subdural hemorrhage without loss of consciousness, subsequent encounter; I10 Essential (primary) hypertension; K74.69 Other cirrhosis of liver; K72.90 Hepatic failure, unspecified without coma; B19.20 Unspecified viral hepatitis C without hepatic coma; M17.9 Osteoarthritis of knee, unspecified; Z90.49 Acquired absence of other specified parts of digestive tract; Z87.891 Personal history of nicotine dependence; J45.909 Unspecified asthma, uncomplicated; Z79.4 Long term (current) use of insulin; M81.0 Age-related osteoporosis without current pathological fracture; F41.9 Anxiety disorder, unspecified; R53.81 Other malaise; K64.9 Unspecified hemorrhoids; V89.2XXD Person injured in unspecified motor-vehicle accident, traffic, subsequent encounter; G44.309 Post-traumatic headache, unspecified, not intractable

== ENCOUNTER 2017-07-06 13:12 | Emergency (ER) | payer MEDICARE, MEDICAID ==
[2017-07-06 13:13] VITALS: BMI 27.7
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
[2017-07-06 14:34] LABS: BASO % 0.6 % (0.0-2.0); EOS # 0.1 K/uL (0.0-0.7); EOS % 2.3 % (0.0-4.0); HEMATOCRIT 27.7 % (34.0-47.0); LYMPH # 0.5 K/uL (1.0-4.3); LYMPH % 21.7 % (20.0-40.0); MEAN CELL VOLUME 89.4 fL (81.0-99.0); MEAN CORPUSCULAR HEMOGLOBIN 30.9 pg (27.0-31.0); MEAN CORPUSCULAR HGB CONC 34.6 g/dL (33.0-37.0); MEAN PLATELET VOLUME 8.9 fL (7.2-11.7); MONO # 0.1 K/uL (0.0-0.8); MONO % 5.7 % (0.0-10.0); RED CELL DISTRIBUTION WIDTH 16.8 % (11.5-14.5); WHITE BLOOD COUNT 2.3 K/uL (4.8-10.8)
[2017-07-06 14:42] LABS: CHLORIDE 94 mmol/L (98-107); POTASSIUM 3.6 mmol/L (3.6-5.2); SODIUM 135 mmol/L (132-148)
[2017-07-06 14:44] LABS: BILIRUBIN,TOTAL 2.4 mg/dL (0.2-1.3); GFR AFRICAN-AMERICAN > 60
[2017-07-06 14:45] LABS: ALB/GLOB RATIO 0.8 (1.0-2.1); ALKALINE PHOSPHATASE 196 U/L (38-126); ALT/SGPT 26 U/L (9-52); AST/SGOT 34 U/L (14-36); BLOOD UREA NITROGEN 20 mg/dL (7-17); CALCIUM 8.6 mg/dl (8.6-10.4); CARBON DIOXIDE 31 mmol/L (22-30); GLUCOSE,RANDOM 351 mg/dL (65-105); TOTAL PROTEIN 6.4 g/dL (6.3-8.3)
[2017-07-06 14:56] LABS: INR 1.4
[2017-07-06 15:19] LABS: RBC URINE 7 /hpf (0-3); URINE BACTERIA MANY (<OCC); URINE BILIRUBIN NEGATIVE (NEGATIVE); URINE BLOOD 1+ (NEGATIVE); URINE COLOR Yellow (YELLOW); URINE GLUCOSE (UA) NORMAL (Normal); URINE KETONE NEGATIVE (NEGATIVE); URINE LEUKOCYTE ESTERASE 3+ Leu/uL (Negative); URINE PROTEIN 2+ mg/dL (NEGATIVE); URINE UROBILINOGEN NORMAL mg/dL (0.2-1.0); WBC CLUMPS FEW /hpf; WBC URINE 195 /hpf (0-5)
--- NOTE | 2017-07-06 15:25 | RAD ---
HISTORY: gi bleed COMPARISON: Chest radiograph 05/30/2017 FINDINGS: LUNGS: No active pulmonary disease. PLEURA: No significant pleural effusion identified, no pneumothorax apparent. CARDIOVASCULAR: Normal. OSSEOUS STRUCTURES: No significant abnormalities. VISUALIZED UPPER ABDOMEN: Normal. OTHER FINDINGS: None. IMPRESSION: No acute cardiopulmonary is identified in the interval compared 05/30/2017.
[2017-07-06 17:31] VITALS: RESP 18
[2017-07-06 21:06] VITALS: BP 126/78; PULSE 82; TEMP 98.1; O2SAT 100
--- NOTE | 2017-07-08 12:28 | CARD ---
APPROVED REPORT EKG Measurement Heart [id number] ID [id number] <Conclusion> Normal sinus rhythm Moderate voltage criteria for LVH, may be normal variant Borderline ECG
== END 2017-07-06 20:35 | disposition home or self-care (01) ==
LOC: C.ER 13:12
DX: K62.5 Hemorrhage of anus and rectum (principal)

== ENCOUNTER 2017-07-15 23:18 | Inpatient (IN) | payer MEDICARE, MEDICAID ==
[2017-07-15 23:19] VITALS: BMI 27.7
[2017-07-15] MEDS ORDERED: (Novolin R) Insulin Human Regular 100 units/ml vial IV STA (23:51)
[2017-07-16] LABS: BASO % 0.7 % (0.0-2.0); EOS % 2.6 % (0.0-4.0); LYMPH # 0.3 K/uL (1.0-4.3); LYMPH % 20.3 % (20.0-40.0); MEAN CORPUSCULAR HEMOGLOBIN 30.9 pg (27.0-31.0); MEAN CORPUSCULAR HGB CONC 33.2 g/dL (33.0-37.0); MONO # 0.1 K/uL (0.0-0.8); RED CELL DISTRIBUTION WIDTH 19.2 % (11.5-14.5)
[2017-07-16 00:05] LABS: WHITE BLOOD COUNT 1.5 K/uL (4.8-10.8)
[2017-07-16] MEDS ORDERED: (Novolin R) Insulin Human Regular 100 units/ml vial ONE (00:10)
[2017-07-16 00:11] LABS: INR 1.4
--- NOTE | 2017-07-16 00:11 | C.PDOC ---
History Of Present Illness 72 y/o female with Hx of GI bleed and Anemia presents to ED sent from [facility] for low hemoglobin and further evaluation. Patient denies fever, chills, nausea, vomiting, back pain, GI bleed,dizziness or any other complaints at this time. Time Seen by Provider: 07/15/17 23:38 Chief Complaint (Nursing): Abnormal Labs History Per: Patient History/Exam Limitations: no limitations Onset/Duration Of Symptoms: Hrs Current Symptoms Are (Timing): Still Present Past Medical History Reviewed: Historical Data, Nursing Documentation, Vital Signs Vital Signs: Last Vital Signs Temp 98.1 F 07/15/17 23:23 Pulse 74 07/15/17 23:23 Resp 16 07/15/17 23:23 BP 120/49 L 07/15/17 23:23 Pulse Ox 100 07/16/17 00:20 - Medical History PMH: Anemia, Anxiety, Arthritis (KNEE), Asthma, Bronchitis, Depression, Diabetes , Diverticulitis, Gastritis, Gall Bladder Disease, Hepatitis (C), HTN, Osteoporosis, Chronic Pain Surgical History: Appendectomy, Cholecystectomy - [facility] Procedures CORONAR ARTERIOGR-2 CATH (08/02/15) INSPECTION OF LOWER INTESTINAL TRACT, ENDO (07/11/16) LEFT HEART CARDIAC CATH (08/02/15) LT HEART ANGIOCARDIOGRAM (08/02/15) OTHER ENDOSCOPY OF SM INTEST (07/09/13) TRANSFUSE NONAUT RED BLOOD CELLS IN PERIPH VEIN, PERC (06/25/17) VACCINATION NEC (07/16/14) Family History: States: No Known Family Hx - Social History Hx Tobacco Use: No Hx Alcohol Use: No Hx Substance Use: No - Immunization History Hx Tetanus Toxoid Vaccination: No Hx Influenza Vaccination: Yes Hx Pneumococcal Vaccination: Yes Review Of Systems Except As Marked, All Systems Reviewed And Found Negative. Constitutional: Negative for: Fever, Chills Respiratory: Negative for: Shortness of Breath Gastrointestinal: Negative for: Nausea, Vomiting Musculoskeletal: Negative for: Back Pain Skin: Negative for: Rash Neurological: Negative for: Weakness, Numbness, Dizziness Physical Exam - Physical Exam Appears: Non-toxic, No Acute Distress Skin: Normal Color, Warm, Dry, No Rash Head: Atraumatic, Normacephalic Eye(s): bilateral: Normal Inspection Oral Mucosa: Moist Neck: Normal ROM, Supple Chest: Symmetrical Cardiovascular: Rhythm Regular, No Murmur Respiratory: Normal Breath Sounds, No Rales, No Rhonchi, No Wheezing Gastrointestinal/Abdominal: Soft, No Tenderness, No Guarding, No Rebound Rectal: Hemorrhoids (large external, (-) bleeding), Other (Scant stool, (-) bleeding) Extremity: Normal ROM, Capillary Refill (<2 seconds) Neurological/Psych: Oriented x3, Normal Speech, Normal Cognition, Normal Cranial Nerves, Normal Motor, Normal Sensation ED Course And Treatment - Laboratory Results Result Diagrams: 07/15/17 23:56 Lab Interpretation: Abnormal (+ pancytopenia) ECG: Interpreted By Me ECG Rhythm: Sinus Rhythm ECG Interpretation: Normal Rate From EC (BPM) O2 Sat by Pulse Oximetry: 100 (RA) Pulse Ox Interpretation: Normal - Radiology CXR: Interpreted by Me CXR Interpretation: Yes: No Acute Disease Reevaluation Time: 00:10 Reassessment Condition: Improved - Physician Consult Information Outcome Of Conversation: [id number]: d/w Dr. Bonilla, ok to admit. Medical Decision Making Medical Decision Making: referred for low hgb, low plts 24 but no bleeding, hold off on plts for now Blood tx per Dr. Bonilla large external hemorroids w h/o bleeding, not bleeding now. Disposition Doctor Will See Patient In The: Hospital Counseled Patient/Family Regarding: Studies Performed, Diagnosis - Disposition Disposition: HOSPITALIZED Disposition Time: 00:11 Condition: GOOD - Clinical Impression Clinical Impression: Pancytopenia - PA / RECORDS AND TAPE RECORDINGS ENGINEER / Resident Statement MD/DO has examined the patient and agrees with the treatment plan. - Scribe Statement The provider has reviewed the documentation as recorded by the Yuliya Clark All medical record entries made by the Yuliya were at my direction and personally dictated by me. I have reviewed the chart and agree that the record accurately reflects my personal performance of the history, physical exam, medical decision making, and the department course for this patient. I have also personally directed, reviewed, and agree with the discharge instructions and disposition.
[2017-07-16 00:26] LABS: ALKALINE PHOSPHATASE 146 U/L (38-126); ALT/SGPT 32 U/L (9-52); AST/SGOT 35 U/L (14-36); BILIRUBIN,TOTAL 1.8 mg/dL (0.2-1.3); BLOOD UREA NITROGEN 16 mg/dL (7-17); CALCIUM 8.4 mg/dl (8.6-10.4); CARBON DIOXIDE 25 mmol/L (22-30); CHLORIDE 98 mmol/L (98-107); GFR AFRICAN-AMERICAN > 60; GLUCOSE,RANDOM 298 mg/dL (65-105); POTASSIUM 3.9 mmol/L (3.6-5.2); SODIUM 132 mmol/L (132-148); TOTAL PROTEIN 5.7 g/dL (6.3-8.3)
--- NOTE | 2017-07-16 06:19 | RAD ---
PROCEDURE: CHEST RADIOGRAPH, 1 VIEW HISTORY: Shortness of breath COMPARISON: 07/06/2017 FINDINGS: LUNGS: Biapical pleural thickening with upper lobe granulomatous changes. Mild venous congestion. Right hilar prominence. Patchy increased markings at the right lung base. PLEURA: No pneumothorax or pleural fluid seen. CARDIOVASCULAR: Normal. OSSEOUS STRUCTURES: No significant abnormalities. VISUALIZED UPPER ABDOMEN: Normal. OTHER FINDINGS: None. IMPRESSION: Biapical pleural thickening with upper lobe granulomatous changes. Mild venous congestion. Right hilar prominence. Patchy increased markings at the right lung base.
[2017-07-16 07:08] LABS: RBC URINE 2 /hpf (0-3); URINE BACTERIA RARE (<OCC); URINE BILIRUBIN NEGATIVE (NEGATIVE); URINE BLOOD NEGATIVE (NEGATIVE); URINE COLOR Yellow (YELLOW); URINE GLUCOSE (UA) 2+ mg/dL (Normal); URINE HYALINE CAST 0-2 /lpf (0-2); URINE KETONE NEGATIVE (NEGATIVE); URINE LEUKOCYTE ESTERASE NEG Leu/uL (Negative); URINE PROTEIN NEGATIVE (NEGATIVE); WBC URINE 1 /hpf (0-5)
[2017-07-16] MEDS ORDERED: Magnesium Hydroxide Susp 30 ml UD PO PRN (07:37)
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
[2017-07-16] MEDS ORDERED: Lidocaine 2% Inj (20ml) ONE (09:32)
--- NOTE | 2017-07-16 09:47 | PCM.SURG1 ---
Surgeon's Initial Post Op Note - Surgeon's Notes Surgeon: Oj Burch MD Lokie Engineer: NONE Type of Anesthesia: IV Sedation Pre-Operative Diagnosis: Poor venous access Operative Findings: Patent right brachial vein. Post-Operative Diagnosis: Poor venous access Operation Performed: Single lumen picc right brachial vein, 32 cm. Tip in the SVC. Specimen/Specimens Removed: None Estimated Blood Loss: EBL {In ML}: 2 Blood Products Given: N/A Drains Used: No Drains Post-Op Condition: Fair Date of Surgery/Procedure: 07/16/17 Time of Surgery/Procedure: 09:40
[2017-07-16 10:44] LABS: BASO % 0.5 % (0.0-2.0); EOS % 2.7 % (0.0-4.0); HEMATOCRIT 21.5 % (34.0-47.0); LYMPH # 0.3 K/uL (1.0-4.3); LYMPH % 22.7 % (20.0-40.0); MEAN CELL VOLUME 91.2 fL (81.0-99.0); MEAN CORPUSCULAR HEMOGLOBIN 30.6 pg (27.0-31.0); MEAN CORPUSCULAR HGB CONC 33.6 g/dL (33.0-37.0); MEAN PLATELET VOLUME 8.9 fL (7.2-11.7); MONO # 0.1 K/uL (0.0-0.8); MONO % 5.6 % (0.0-10.0); NRBC % 0.1 % (0.0-2.0); RED CELL DISTRIBUTION WIDTH 19.1 % (11.5-14.5)
[2017-07-16 10:49] LABS: WHITE BLOOD COUNT 1.1 K/uL (4.8-10.8)
[2017-07-16] MEDS: (Lantus) Insulin Glargine, Recombinant SC SCH (11:14)
[2017-07-16] MEDS: Pantoprazole 40 mg EC Tab PO SCH (11:15)
[2017-07-16] MEDS: Tmp-Smz 800 mg-160 mg DS Tab PO SCH ×2 (11:15→17:40)
[2017-07-16 11:16] LABS: ALB/GLOB RATIO 0.8 (1.0-2.1); ALKALINE PHOSPHATASE 112 U/L (38-126); ALT/SGPT 29 U/L (9-52); AST/SGOT 32 U/L (14-36); BILIRUBIN,TOTAL 1.9 mg/dL (0.2-1.3); BLOOD UREA NITROGEN 14 mg/dL (7-17); CALCIUM 8.3 mg/dl (8.6-10.4); CARBON DIOXIDE 24 mmol/L (22-30); CHLORIDE 101 mmol/L (98-107); GFR AFRICAN-AMERICAN > 60; GLUCOSE,RANDOM 178 mg/dL (65-105); MAGNESIUM 1.7 mg/dL (1.6-2.3); PHOSPHOROUS 3.7 mg/dL (2.5-4.5); POTASSIUM 4.3 mmol/L (3.6-5.2); SODIUM 135 mmol/L (132-148); TOTAL PROTEIN 5.3 g/dL (6.3-8.3)
[2017-07-16] MEDS: (Novolog) Insulin Aspart, Recombinant 100 u/ml 10 ml vial SC SCH ×3 (12:52→21:08)
--- NOTE | 2017-07-16 18:52 | CP.PCM.CON ---
History of Present Illness - History of Present Illness History of Present Illness: Asked to see pt today for anemia and hemorrhoids. PMH: Cirrhosis, HCV, HTn asthma, DM Had chronic BRBPR x yrs from hemorrhoids. HAd BRBPR 2 weeeks ago. 1 yr ago EGD- varices- gastric and esoph. 1 yr ago - colonoscopy done Pt seen with RN present Review of Systems - Constitutional Constitutional: absent: Anorexia, Fatigue - EENT Eyes: absent: Photophobia Nose/Mouth/Throat: absent: Dysphagia - Cardiovascular Cardiovascular: absent: Chest Pain, Dyspnea - Respiratory Respiratory: absent: Cough, Hemoptysis, Wheezing - Gastrointestinal Gastrointestinal: Hematochezia. absent: Abdominal Pain, Constipation, Diarrhea , Dysphagia, Hematemesis, Melena, Vomiting - Genitourinary Genitourinary: absent: Hematuria - Musculoskeletal Musculoskeletal: absent: Muscle Cramps, Muscle Weakness - Integumentary Integumentary: absent: Rash, Jaundice - Neurological Neurological: absent: Convulsions, Headaches Past Patient History - Infectious Disease Hx of Infectious Diseases: None - Past Medical History & Family History Past Medical History?: Yes - Past Social History Smoking Status: Never Smoked - CARDIAC Hx Hypertension: Yes - PULMONARY Hx Asthma: Yes Hx Bronchitis: Yes - NEUROLOGICAL Hx Neurological Disorder: Yes Other/Comment: SEVERE NEUROPATHY, hepatic encephalopathy. subdural hematoma - HEENT Hx HEENT Problems: Yes Other/Comment: Dimished vision bilateral - RENAL Hx Chronic Kidney Disease: No - ENDOCRINE/METABOLIC Hx Diabetes Mellitus Type 2: Yes - HEMATOLOGICAL/ONCOLOGICAL Hx Anemia: Yes Hx Blood Transfusions: Yes Hx Hepatitis B: Yes Hx Hepatitis C: Yes - INTEGUMENTARY Hx Dermatological Problems: No Hx Psoriasis: Yes - MUSCULOSKELETAL/RHEUMATOLOGICAL Hx Arthritis: Yes (KNEE) Hx Falls: No Hx Osteoporosis: Yes - GASTROINTESTINAL Hx Diverticulitis: Yes Hx Gall Bladder Disease: Yes Hx Gastritis: Yes Hx Hemorrhoids: Yes - GENITOURINARY/GYNECOLOGICAL Hx Genitourinary Disorders: No - PSYCHIATRIC Hx Anxiety: Yes Hx Depression: Yes Hx Substance Use: No - SURGICAL HISTORY Hx Appendectomy: Yes Hx Cholecystectomy: Yes - ANESTHESIA Hx Anesthesia: Yes Hx Anesthesia Reactions: No Hx Malignant Hyperthermia: No Has any member of the family had a problem w/ anesthesia?: No Meds Allergies/Adverse Reactions: Allergies Allergy/AdvReac Type Severity Reaction Status Date / Time acetaminophen [From Percocet] Allergy RASH Verified 07/15/17 23:24 aspirin Allergy RASH Verified 07/15/17 23:24 oxycodone HCl [From Percocet] Allergy RASH Verified 07/15/17 23:24 Penicillins Allergy RASH Verified 07/15/17 23:24 - Medications Medications: Current Medications Acetaminophen (Tylenol 325mg Tab) 650 mg PO ONCE PRN PRN Reason: blood transf. Last Admin: 07/16/17 13:27 Dose: 650 mg Bumetanide (Bumex) 1 mg PO DAILY [facility] Last Admin: 07/16/17 11:18 Dose: 1 mg Diphenhydramine HCl (Benadryl) 25 mg PO ONCE PRN PRN Reason: Allergy symptoms Last Admin: 07/16/17 13:27 Dose: 25 mg Gabapentin (Neurontin) 300 mg PO BID [facility] Last Admin: 07/16/17 17:40 Dose: 300 mg Hydrocortisone (Anusol-Hc) 0 gm [place] BID [facility] Insulin Aspart (Novolog) 0 unit SC ACHS [facility] PRN Reason: Protocol Last Admin: 07/16/17 17:42 Dose: 3 unit Insulin Glargine (Lantus) 10 unit SC DAILY [facility] Last Admin: 07/16/17 11:14 Dose: 10 units Lactulose (Enulose) 20 gm PO HS [facility] Magnesium Hydroxide (Milk Of Magnesia) 30 ml PO DAILY PRN PRN Reason: Constipation Pantoprazole Sodium (Protonix Ec Tab) 40 mg PO DAILY [facility] Last Admin: 07/16/17 11:15 Dose: 40 mg Propranolol HCl (Inderal) 10 mg PO TID [facility] Last Admin: 07/16/17 17:41 Dose: 10 mg Rifaximin (Xifaxan) 550 mg PO BID [facility] Last Admin: 07/16/17 11:18 Dose: 550 mg Temazepam (Restoril) 15 mg PO HS [facility] Tramadol HCl (Ultram) 50 mg PO TID PRN PRN Reason: Pain, moderate (4-7) Trimethoprim/Sulfamethoxazole (Bactrim Ds Tab) 1 tab PO BID [facility] Last Admin: 07/16/17 17:40 Dose: 1 tab Physical Exam - Constitutional Appears: Non-toxic - Eye Exam Eye Exam: absent: Nystagmus - Neck Exam Neck exam: Negative for: Tenderness - Respiratory Exam Respiratory Exam: Clear to Auscultation Bilateral - Cardiovascular Exam Cardiovascular Exam: RRR - GI/Abdominal Exam GI & Abdominal Exam: Normal Bowel Sounds, Soft. absent: Guarding, Rebound - Rectal Exam Rectal Exam: Hemorrhoids Additional comments: Mild hemorrhoids, NT, no mass, guaiac neg. RN present. - Extremities Exam Extremities exam: Negative for: calf tenderness - Psychiatric Exam Psychiatric exam: Normal Mood Results - Vital Signs Recent Vital Signs: Last Vital Signs Temp 98.4 F 07/16/17 17:45 Pulse 78 07/16/17 17:45 Resp 18 07/16/17 17:45 BP 126/61 07/16/17 17:45 Pulse Ox 97 07/16/17 15:00 - Labs Result Diagrams: 07/16/17 10:39 07/16/17 10:39 Labs: Laboratory Results - last 24 hr 07/15/17 07/15/17 07/15/17 23:56 23:56 23:56 WBC 1.5 L* RBC 2.58 L Hgb 8.0 L Hct 24.0 L MCV 93.0 D MCH 30.9 MCHC 33.2 RDW 19.2 H Plt Count 24 L* MPV 9.0 Neut % (Auto) 70.4 Lymph % (Auto) 20.3 [place] % (Auto) 6.0 Eos % (Auto) 2.6 Baso % (Auto) 0.7 Neut # 1.1 L Lymph # 0.3 L [place] # 0.1 Eos # 0.0 Baso # 0.0 Differential Comment PT 16.0 H INR 1.4 APTT 43 H Sodium 132 Potassium 3.9 Chloride 98 Carbon Dioxide 25 Anion Gap 12 BUN 16 Creatinine 0.9 Est GFR ( Amer) > 60 Est GFR (Non-Af Amer) > 60 POC Glucose (mg/dL) Random Glucose 298 H Calcium 8.4 L Phosphorus Magnesium Total Bilirubin 1.8 H AST 35 ALT 32 Alkaline Phosphatase 146 H Troponin I < 0.0120 NT-Pro-B Natriuret Pep 858 Total Protein 5.7 L Albumin 2.8 L Globulin 2.9 Albumin/Globulin Ratio 1.0 Urine Color Urine Clarity Urine pH Ur Specific [place] Urine Protein Urine Glucose (UA) Urine Ketones Urine Blood Urine Nitrate Urine Bilirubin Urine Urobilinogen Ur Leukocyte Esterase Urine WBC (Auto) Urine RBC (Auto) Ur Squamous Epith Cells Urine Bacteria Hyaline Casts Stool Occult Blood Blood Type Antibody Screen Antibody Identification 09/04/17 09/05/17 09/05/17 23:56 00:56 06:51 WBC RBC Hgb Hct MCV MCH MCHC RDW Plt Count MPV Neut % (Auto) Lymph % (Auto) [place] % (Auto) Eos % (Auto) Baso % (Auto) Neut # Lymph # [place] # Eos # Baso # Differential Comment PT INR APTT Sodium Potassium Chloride Carbon Dioxide Anion Gap BUN Creatinine Est GFR ( Amer) Est GFR (Non-Af Amer) POC Glucose (mg/dL) Random Glucose Calcium Phosphorus Magnesium Total Bilirubin AST ALT Alkaline Phosphatase Troponin I NT-Pro-B Natriuret Pep Total Protein Albumin Globulin Albumin/Globulin Ratio Urine Color Yellow Urine Clarity Turbid Urine pH 6.0 Ur Specific [place] 1.021 Urine Protein Negative Urine Glucose (UA) 2+ H Urine Ketones Negative Urine Blood Negative Urine Nitrate Negative Urine Bilirubin Negative Urine Urobilinogen 4.0 H Ur Leukocyte Esterase Neg Urine WBC (Auto) 1 Urine RBC (Auto) 2 Ur Squamous Epith Cells 3 Urine Bacteria Rare Hyaline Casts 0-2 Stool Occult Blood Negative Blood Type O POSITIVE Antibody Screen Positive Antibody Identification Anti E 07/16/17 07/16/17 07/16/17 06:52 08:29 10:39 WBC 1.1 L* RBC 2.36 L Hgb 7.2 L Hct 21.5 L MCV 91.2 MCH 30.6 MCHC 33.6 RDW 19.1 H Plt Count 25 L* MPV 8.9 Neut % (Auto) 68.5 Lymph % (Auto) 22.7 [place] % (Auto) 5.6 Eos % (Auto) 2.7 Baso % (Auto) 0.5 Neut # 0.8 L Lymph # 0.3 L [place] # 0.1 Eos # 0.0 Baso # 0.0 Differential Comment PT INR APTT Sodium Potassium Chloride Carbon Dioxide Anion Gap BUN Creatinine Est GFR ( Amer) Est GFR (Non-Af Amer) POC Glucose (mg/dL) 117 H 107 Random Glucose Calcium Phosphorus Magnesium Total Bilirubin AST ALT Alkaline Phosphatase Troponin I NT-Pro-B Natriuret Pep Total Protein Albumin Globulin Albumin/Globulin Ratio Urine Color Urine Clarity Urine pH Ur Specific [place] Urine Protein Urine Glucose (UA) Urine Ketones Urine Blood Urine Nitrate Urine Bilirubin Urine Urobilinogen Ur Leukocyte Esterase Urine WBC (Auto) Urine RBC (Auto) Ur Squamous Epith Cells Urine Bacteria Hyaline Casts Stool Occult Blood Blood Type Antibody Screen Antibody Identification 07/16/17 07/16/17 07/16/17 10:39 10:52 16:16 WBC RBC Hgb Hct MCV MCH MCHC RDW Plt Count MPV Neut % (Auto) Lymph % (Auto) [place] % (Auto) Eos % (Auto) Baso % (Auto) Neut # Lymph # [place] # Eos # Baso # Differential Comment PT INR APTT Sodium 135 Potassium 4.3 Chloride 101 Carbon Dioxide 24 Anion Gap 15 BUN 14 Creatinine 0.8 Est GFR ( Amer) > 60 Est GFR (Non-Af Amer) > 60 POC Glucose (mg/dL) 235 H 285 H Random Glucose 178 H Calcium 8.3 L Phosphorus 3.7 Magnesium 1.7 Total Bilirubin 1.9 H AST 32 ALT 29 Alkaline Phosphatase 112 Troponin I NT-Pro-B Natriuret Pep Total Protein 5.3 L Albumin 2.3 L Globulin 3.0 Albumin/Globulin Ratio 0.8 L Urine Color Urine Clarity Urine pH Ur Specific [place] Urine Protein Urine Glucose (UA) Urine Ketones Urine Blood Urine Nitrate Urine Bilirubin Urine Urobilinogen Ur Leukocyte Esterase Urine WBC (Auto) Urine RBC (Auto) Ur Squamous Epith Cells Urine Bacteria Hyaline Casts Stool Occult Blood Blood Type Antibody Screen Antibody Identification Assessment & Plan (1) Cirrhosis Status: Acute (2) HCV (hepatitis C virus) Status: Acute (3) Asthma Status: Acute (4) HTN (hypertension) Status: Acute (5) Anemia Assessment and Plan: pancytopernia Status: Acute (6) Pancytopenia Status: Acute (7) GI bleed Assessment and Plan: From hemorrhoids. Chronic sporadic bleed. Difficult to treat with surgery due to cirrhoisis and pancytopenia. Pt had egd and colon done 1 yr ago. Status: Acute (8) Hepatic encephalopathy Assessment and Plan: stable. Check NH3 level. Status: Acute (9) Thrombocytopenia Status: Acute (10) Internal hemorrhoid Assessment and Plan: treat with crema/suppositories. Status: Acute
[2017-07-16] MEDS: Hydrocortisone 2.5% Rectal Cream(30 gm) PR SCH (19:00)
--- NOTE | 2017-07-16 22:59 | CP.PCM.CON ---
History of Present Illness - History of Present Illness History of Present Illness: 72 year old female with a history of hepatitis C cirrhosis complicated by portal HTN, lower GI bleeding from hemorrhoids, sent to the ER for low hemoglobin. The patient reports to low blood counts for several years and had 2 bone marrows, last one about 1-2 years ago per the patient. She does admit to intermittent blood streaked stools. Past medical history: Hep C cirrhosis, DM, HTN Past surgical history: appendectomy Family history: Father had liver cancer Social history: Denies tobacco, alcohol, and illicit drug use. Allergies: Several, see list Review of systems: All remaining review of systems including HEENT, cardiovascular, respiratory, gastrointestinal, genitourinary, musculoskeletal, dermatologic, neurologic, and psychiatric are negative unless mentioned in the HPI. Past Patient History - Infectious Disease Hx of Infectious Diseases: None - Past Medical History & Family History Past Medical History?: Yes - Past Social History Smoking Status: Never Smoked - CARDIAC Hx Hypertension: Yes - PULMONARY Hx Asthma: Yes Hx Bronchitis: Yes - NEUROLOGICAL Hx Neurological Disorder: Yes Other/Comment: SEVERE NEUROPATHY, hepatic encephalopathy. subdural hematoma - HEENT Hx HEENT Problems: Yes Other/Comment: Dimished vision bilateral - RENAL Hx Chronic Kidney Disease: No - ENDOCRINE/METABOLIC Hx Diabetes Mellitus Type 2: Yes - HEMATOLOGICAL/ONCOLOGICAL Hx Anemia: Yes Hx Blood Transfusions: Yes Hx Hepatitis B: Yes Hx Hepatitis C: Yes - INTEGUMENTARY Hx Dermatological Problems: No Hx Psoriasis: Yes - MUSCULOSKELETAL/RHEUMATOLOGICAL Hx Arthritis: Yes (KNEE) Hx Falls: No Hx Osteoporosis: Yes - GASTROINTESTINAL Hx Diverticulitis: Yes Hx Gall Bladder Disease: Yes Hx Gastritis: Yes Hx Hemorrhoids: Yes - GENITOURINARY/GYNECOLOGICAL Hx Genitourinary Disorders: No - PSYCHIATRIC Hx Anxiety: Yes Hx Depression: Yes Hx Substance Use: No - SURGICAL HISTORY Hx Appendectomy: Yes Hx Cholecystectomy: Yes - ANESTHESIA Hx Anesthesia: Yes Hx Anesthesia Reactions: No Hx Malignant Hyperthermia: No Has any member of the family had a problem w/ anesthesia?: No Meds Allergies/Adverse Reactions: Allergies Allergy/AdvReac Type Severity Reaction Status Date / Time acetaminophen [From Percocet] Allergy RASH Verified 07/15/17 23:24 aspirin Allergy RASH Verified 07/15/17 23:24 oxycodone HCl [From Percocet] Allergy RASH Verified 07/15/17 23:24 Penicillins Allergy RASH Verified 07/15/17 23:24 - Medications Medications: Current Medications Acetaminophen (Tylenol 325mg Tab) 650 mg PO ONCE PRN PRN Reason: blood transf. Last Admin: 07/16/17 13:27 Dose: 650 mg Bumetanide (Bumex) 1 mg PO DAILY [facility] Last Admin: 07/16/17 11:18 Dose: 1 mg Diphenhydramine HCl (Benadryl) 25 mg PO ONCE PRN PRN Reason: Allergy symptoms Last Admin: 07/16/17 13:27 Dose: 25 mg Gabapentin (Neurontin) 300 mg PO BID [facility] Last Admin: 07/16/17 17:40 Dose: 300 mg Hydrocortisone (Anusol-Hc) 0 gm [place] BID [facility] Last Admin: 07/16/17 19:00 Dose: 1 applic Insulin Aspart (Novolog) 0 unit SC [facility] PRN Reason: Protocol Last Admin: 07/16/17 21:08 Dose: Not Given Insulin Glargine (Lantus) 10 unit SC DAILY [facility] Last Admin: 07/16/17 11:14 Dose: 10 units Lactulose (Enulose) 20 gm PO [facility] Last Admin: 07/16/17 21:06 Dose: 20 gm Magnesium Hydroxide (Milk Of Magnesia) 30 ml PO DAILY PRN PRN Reason: Constipation Pantoprazole Sodium (Protonix Ec Tab) 40 mg PO DAILY [facility] Last Admin: 07/16/17 11:15 Dose: 40 mg Propranolol HCl (Inderal) 10 mg PO TID [facility] Last Admin: 07/16/17 17:41 Dose: 10 mg Rifaximin (Xifaxan) 550 mg PO BID [facility] Last Admin: 07/16/17 21:07 Dose: 550 mg Temazepam (Restoril) 15 mg PO [facility] Last Admin: 07/16/17 21:06 Dose: 15 mg Tramadol HCl (Ultram) 50 mg PO TID PRN PRN Reason: Pain, moderate (4-7) Trimethoprim/Sulfamethoxazole (Bactrim Ds Tab) 1 tab PO BID [facility] Last Admin: 07/16/17 17:40 Dose: 1 tab Physical Exam - Head Exam Head Exam: ATRAUMATIC - Eye Exam Eye Exam: Normal appearance - ENT Exam ENT Exam: Mucous Membranes Dry - Respiratory Exam Respiratory Exam: NORMAL BREATHING PATTERN - Cardiovascular Exam Cardiovascular Exam: +S1, +S2 - GI/Abdominal Exam GI & Abdominal Exam: Normal Bowel Sounds - Extremities Exam Extremities exam: Positive for: normal inspection - Neurological Exam Neurological exam: Oriented x3 - Psychiatric Exam Psychiatric exam: Normal Affect, Normal Mood - Skin Skin Exam: Warm Results - Vital Signs Recent Vital Signs: Last Vital Signs Temp 98.4 F 07/16/17 17:45 Pulse 78 07/16/17 17:45 Resp 18 07/16/17 17:45 BP 126/61 07/16/17 17:45 Pulse Ox 97 07/16/17 15:00 - Labs Result Diagrams: 07/16/17 10:39 07/16/17 10:39 Labs: Laboratory Results - last 24 hr 07/15/17 07/15/17 07/15/17 23:56 23:56 23:56 WBC 1.5 L* RBC 2.58 L Hgb 8.0 L Hct 24.0 L MCV 93.0 D MCH 30.9 MCHC 33.2 RDW 19.2 H Plt Count 24 L* MPV 9.0 Neut % (Auto) 70.4 Lymph % (Auto) 20.3 [place] % (Auto) 6.0 Eos % (Auto) 2.6 Baso % (Auto) 0.7 Neut # 1.1 L Lymph # 0.3 L [place] # 0.1 Eos # 0.0 Baso # 0.0 Differential Comment PT 16.0 H INR 1.4 APTT 43 H Sodium 132 Potassium 3.9 Chloride 98 Carbon Dioxide 25 Anion Gap 12 BUN 16 Creatinine 0.9 Est GFR ( Amer) > 60 Est GFR (Non-Af Amer) > 60 POC Glucose (mg/dL) Random Glucose 298 H Calcium 8.4 L Phosphorus Magnesium Total Bilirubin 1.8 H AST 35 ALT 32 Alkaline Phosphatase 146 H Troponin I < 0.0120 NT-Pro-B Natriuret Pep 858 Total Protein 5.7 L Albumin 2.8 L Globulin 2.9 Albumin/Globulin Ratio 1.0 Urine Color Urine Clarity Urine pH Ur Specific [place] Urine Protein Urine Glucose (UA) Urine Ketones Urine Blood Urine Nitrate Urine Bilirubin Urine Urobilinogen Ur Leukocyte Esterase Urine WBC (Auto) Urine RBC (Auto) Ur Squamous Epith Cells Urine Bacteria Hyaline Casts Stool Occult Blood Blood Type Antibody Screen Antibody Identification 07/15/17 07/16/17 07/16/17 23:56 00:56 06:51 WBC RBC Hgb Hct MCV MCH MCHC RDW Plt Count MPV Neut % (Auto) Lymph % (Auto) [place] % (Auto) Eos % (Auto) Baso % (Auto) Neut # Lymph # [place] # Eos # Baso # Differential Comment PT INR APTT Sodium Potassium Chloride Carbon Dioxide Anion Gap BUN Creatinine Est GFR ( Amer) Est GFR (Non-Af Amer) POC Glucose (mg/dL) Random Glucose Calcium Phosphorus Magnesium Total Bilirubin AST ALT Alkaline Phosphatase Troponin I NT-Pro-B Natriuret Pep Total Protein Albumin Globulin Albumin/Globulin Ratio Urine Color Yellow Urine Clarity Turbid Urine pH 6.0 Ur Specific [place] 1.021 Urine Protein Negative Urine Glucose (UA) 2+ H Urine Ketones Negative Urine Blood Negative Urine Nitrate Negative Urine Bilirubin Negative Urine Urobilinogen 4.0 H Ur Leukocyte Esterase Neg Urine WBC (Auto) 1 Urine RBC (Auto) 2 Ur Squamous Epith Cells 3 Urine Bacteria Rare Hyaline Casts 0-2 Stool Occult Blood Negative Blood Type O POSITIVE Antibody Screen Positive Antibody Identification Anti E 07/16/17 07/16/17 07/16/17 06:52 08:29 10:39 WBC 1.1 L* RBC 2.36 L Hgb 7.2 L Hct 21.5 L MCV 91.2 MCH 30.6 MCHC 33.6 RDW 19.1 H Plt Count 25 L* MPV 8.9 Neut % (Auto) 68.5 Lymph % (Auto) 22.7 [place] % (Auto) 5.6 Eos % (Auto) 2.7 Baso % (Auto) 0.5 Neut # 0.8 L Lymph # 0.3 L [place] # 0.1 Eos # 0.0 Baso # 0.0 Differential Comment PT INR APTT Sodium Potassium Chloride Carbon Dioxide Anion Gap BUN Creatinine Est GFR ( Amer) Est GFR (Non-Af Amer) POC Glucose (mg/dL) 117 H 107 Random Glucose Calcium Phosphorus Magnesium Total Bilirubin AST ALT Alkaline Phosphatase Troponin I NT-Pro-B Natriuret Pep Total Protein Albumin Globulin Albumin/Globulin Ratio Urine Color Urine Clarity Urine pH Ur Specific [place] Urine Protein Urine Glucose (UA) Urine Ketones Urine Blood Urine Nitrate Urine Bilirubin Urine Urobilinogen Ur Leukocyte Esterase Urine WBC (Auto) Urine RBC (Auto) Ur Squamous Epith Cells Urine Bacteria Hyaline Casts Stool Occult Blood Blood Type Antibody Screen Antibody Identification 07/16/17 07/16/17 07/16/17 10:39 10:52 16:16 WBC RBC Hgb Hct MCV MCH MCHC RDW Plt Count MPV Neut % (Auto) Lymph % (Auto) [place] % (Auto) Eos % (Auto) Baso % (Auto) Neut # Lymph # [place] # Eos # Baso # Differential Comment PT INR APTT Sodium 135 Potassium 4.3 Chloride 101 Carbon Dioxide 24 Anion Gap 15 BUN 14 Creatinine 0.8 Est GFR ( Amer) > 60 Est GFR (Non-Af Amer) > 60 POC Glucose (mg/dL) 235 H 285 H Random Glucose 178 H Calcium 8.3 L Phosphorus 3.7 Magnesium 1.7 Total Bilirubin 1.9 H AST 32 ALT 29 Alkaline Phosphatase 112 Troponin I NT-Pro-B Natriuret Pep Total Protein 5.3 L Albumin 2.3 L Globulin 3.0 Albumin/Globulin Ratio 0.8 L Urine Color Urine Clarity Urine pH Ur Specific [place] Urine Protein Urine Glucose (UA) Urine Ketones Urine Blood Urine Nitrate Urine Bilirubin Urine Urobilinogen Ur Leukocyte Esterase Urine WBC (Auto) Urine RBC (Auto) Ur Squamous Epith Cells Urine Bacteria Hyaline Casts Stool Occult Blood Blood Type Antibody Screen Antibody Identification 07/16/17 21:02 WBC RBC Hgb Hct MCV MCH MCHC RDW Plt Count MPV Neut % (Auto) Lymph % (Auto) [place] % (Auto) Eos % (Auto) Baso % (Auto) Neut # Lymph # [place] # Eos # Baso # Differential Comment PT INR APTT Sodium Potassium Chloride Carbon Dioxide Anion Gap BUN Creatinine Est GFR ( Amer) Est GFR (Non-Af Amer) POC Glucose (mg/dL) 242 H Random Glucose Calcium Phosphorus Magnesium Total Bilirubin AST ALT Alkaline Phosphatase Troponin I NT-Pro-B Natriuret Pep Total Protein Albumin Globulin Albumin/Globulin Ratio Urine Color Urine Clarity Urine pH Ur Specific [place] Urine Protein Urine Glucose (UA) Urine Ketones Urine Blood Urine Nitrate Urine Bilirubin Urine Urobilinogen Ur Leukocyte Esterase Urine WBC (Auto) Urine RBC (Auto) Ur Squamous Epith Cells Urine Bacteria Hyaline Casts Stool Occult Blood Blood Type Antibody Screen Antibody Identification Assessment & Plan (1) Pancytopenia Assessment and Plan: 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 Status: Acute
--- NOTE | 2017-07-16 23:30 | CARD ---
APPROVED REPORT EKG Measurement Heart [id number] <Conclusion> Normal sinus rhythm Normal ECG
[2017-07-17 07:25] LABS: BASO % 0.5 % (0.0-2.0); EOS % 2.4 % (0.0-4.0); HEMATOCRIT 24.1 % (34.0-47.0); LYMPH # 0.3 K/uL (1.0-4.3); LYMPH % 26.6 % (20.0-40.0); MEAN CELL VOLUME 90.6 fL (81.0-99.0); MEAN CORPUSCULAR HEMOGLOBIN 30.7 pg (27.0-31.0); MEAN CORPUSCULAR HGB CONC 33.9 g/dL (33.0-37.0); MEAN PLATELET VOLUME 9.3 fL (7.2-11.7); MONO # 0.1 K/uL (0.0-0.8); NRBC % 0.2 % (0.0-2.0); RED CELL DISTRIBUTION WIDTH 18.7 % (11.5-14.5)
[2017-07-17 07:34] LABS: WHITE BLOOD COUNT 1.3 K/uL (4.8-10.8)
[2017-07-17 07:57] LABS: CHLORIDE 105 mmol/L (98-107); SODIUM 135 mmol/L (132-148)
[2017-07-17 07:59] LABS: CHOLESTEROL 107 mg/dL (0-199); GFR AFRICAN-AMERICAN > 60
[2017-07-17 08:00] LABS: ALB/GLOB RATIO 0.8 (1.0-2.1); ALKALINE PHOSPHATASE 112 U/L (38-126); ALT/SGPT 30 U/L (9-52); AST/SGOT 33 U/L (14-36); BILIRUBIN,TOTAL 2.3 mg/dL (0.2-1.3); BLOOD UREA NITROGEN 17 mg/dL (7-17); CARBON DIOXIDE 24 mmol/L (22-30); GLUCOSE,RANDOM 132 mg/dL (65-105); PHOSPHOROUS 3.5 mg/dL (2.5-4.5); TOTAL PROTEIN 5.5 g/dL (6.3-8.3)
[2017-07-17 08:01] LABS: MAGNESIUM 1.7 mg/dL (1.6-2.3)
[2017-07-17] MEDS: (Novolog) Insulin Aspart, Recombinant 100 u/ml 10 ml vial SC SCH ×4 (08:09→22:54)
[2017-07-17 08:15] LABS: THYROID STIMULATING HORMONE 1.89 mIU/L (0.46-4.68)
[2017-07-17] MEDS: Pantoprazole 40 mg EC Tab PO SCH (09:39)
[2017-07-17] MEDS: Tmp-Smz 800 mg-160 mg DS Tab PO SCH ×3 (09:40→19:56)
[2017-07-17] MEDS: Ferric Sodium Gluconat Complex 62.5 mg/5 ml Vial IVPB SCH (09:40)
[2017-07-17] MEDS: (Lantus) Insulin Glargine, Recombinant SC SCH (09:40)
[2017-07-17] MEDS: Hydrocortisone 2.5% Rectal Cream(30 gm) PR SCH ×2 (09:41→17:49)
--- NOTE | 2017-07-17 10:31 | SPECPROC ---
PROCEDURE: Date of procedure: 07/16/2017 Procedure: 1. Placement of a right arm PICC with ultrasound and fluoroscopic guidance, CPT 73896 2. PICC tip confirmation with spot radiograph and is in the superior vena cava Medications: 1 percent lidocaine Total Fluoro time: 4 seconds Radiation: 2 mGy EBL: 2 cc HISTORY: Infection requiring long-term IV antibiotics TECHNIQUE: Following informed consent and procedure time-out, the patient was placed supine on the interventional table and the right arm prepped and draped in the usual sterile fashion. Ultrasound showed a patent and compressible right basilic vein. After the skin was anesthetized with lidocaine, the basilic vein was accessed with micro micropuncture technique using ultrasound guidance. A guidewire was then advanced under fluoroscopic guidance into the superior vena cava. An image documenting ultrasound guidance for vascular access was permanently saved. The length of the single-lumen 4 [place] PICC was trimmed to 32 centimeters and advanced through a peel-away sheath. The PICC was position with tip of PICC confirm a spot radiograph the superior vena cava. The PICC was secured to the patient's skin. The PICC was flushed. A biopatch and sterile dressing was applied. IMPRESSION: Placement of a single-lumen 4 [place] PICC trimmed to 32 centimeters via right basilic vein. The tip of the PICC is confirmed with spot radiograph and is in the superior vena cava.
--- NOTE | 2017-07-17 12:34 | CP.PCM.PN ---
Subjective - Date & Time of Evaluation Date of Evaluation: 07/17/17 Time of Evaluation: 12:31 - Subjective Subjective: CC: f/u anemia Feels well. No GI bleeding or abdominal pain No dyspnea Objective - Vital Signs/Intake and Output Vital Signs (last 24 hours): Temp Pulse Resp BP Pulse Ox 98.0 F 80 20 105/62 96 07/17/17 08:04 07/17/17 08:04 07/17/17 08:04 07/17/17 08:04 07/17/17 08:04 Intake and Output: 07/17/17 07/17/17 06:59 18:59 Intake Total 865 Balance 865 - Medications Medications: Current Medications Acetaminophen (Tylenol 325mg Tab) 650 mg PO ONCE PRN PRN Reason: blood transf. Last Admin: 07/16/17 13:27 Dose: 650 mg Bumetanide (Bumex) 1 mg PO DAILY [facility] Last Admin: 07/17/17 09:39 Dose: 1 mg Diphenhydramine HCl (Benadryl) 25 mg PO ONCE PRN PRN Reason: Allergy symptoms Last Admin: 07/16/17 13:27 Dose: 25 mg Ferric Sodium Gluconate Complex (Ferrlecit) 125 mg IVPB DAILY [facility] Stop: 07/22/17 10:01 Last Admin: 07/17/17 09:40 Dose: 125 mg Gabapentin (Neurontin) 300 mg PO BID [facility] Last Admin: 07/17/17 09:40 Dose: 300 mg Hydrocortisone (Anusol-Hc) 0 gm [place] BID [facility] Last Admin: 07/17/17 09:41 Dose: 1 applic Insulin Aspart (Novolog) 0 unit SC ACHS [facility] PRN Reason: Protocol Last Admin: 07/17/17 08:09 Dose: 1 unit Insulin Glargine (Lantus) 10 unit SC DAILY [facility] Last Admin: 07/17/17 09:40 Dose: 10 units Lactulose (Enulose) 20 gm PO HS [facility] Last Admin: 07/16/17 21:06 Dose: 20 gm Magnesium Hydroxide (Milk Of Magnesia) 30 ml PO DAILY PRN PRN Reason: Constipation Last Admin: 07/17/17 09:39 Dose: 30 ml Pantoprazole Sodium (Protonix Ec Tab) 40 mg PO DAILY [facility] Last Admin: 07/17/17 09:39 Dose: 40 mg Propranolol HCl (Inderal) 10 mg PO TID [facility] Last Admin: 07/17/17 09:39 Dose: 10 mg Rifaximin (Xifaxan) 550 mg PO BID [facility] Last Admin: 07/17/17 09:39 Dose: 550 mg Temazepam (Restoril) 15 mg PO HS [facility] Last Admin: 07/16/17 21:06 Dose: 15 mg Tramadol HCl (Ultram) 50 mg PO TID PRN PRN Reason: Pain, moderate (4-7) Last Admin: 07/17/17 01:06 Dose: 50 mg Trimethoprim/Sulfamethoxazole (Bactrim Ds Tab) 1 tab PO BID [facility] Last Admin: 07/17/17 09:40 Dose: 1 tab - Labs Labs: 07/17/17 07:15 07/17/17 07:15 PT 16.0 SECONDS (9.7-12.2) H 07/15/17 23:56 INR 1.4 07/15/17 23:56 APTT 43 SECONDS (21-34) H 07/15/17 23:56 - Constitutional Appears: Well, No Acute Distress - Head Exam Head Exam: NORMOCEPHALIC - Eye Exam Eye Exam: absent: Scleral icterus - Respiratory Exam Respiratory Exam: NORMAL BREATHING PATTERN - Cardiovascular Exam Cardiovascular Exam: REGULAR RHYTHM - GI/Abdominal Exam GI & Abdominal Exam: Soft. absent: Tenderness Assessment and Plan (1) Cirrhosis Assessment & Plan: Stable at present. Portal HTN. Follow up with dr Arguello as outpatient Status: Acute (2) Pancytopenia Assessment & Plan: Due to cirrhosis Portal Htn Hemorrhoids No bleeding Monitor clinically Status: Acute
--- NOTE | 2017-07-17 13:12 | CP.PCM.PN ---
Subjective - Date & Time of Evaluation Date of Evaluation: 07/17/17 Time of Evaluation: 11:20 - Subjective Subjective: Feeling better for 1U PRBC today Objective - Vital Signs/Intake and Output Vital Signs (last 24 hours): Temp Pulse Resp BP Pulse Ox 98.0 F 80 20 105/62 96 07/17/17 08:04 07/17/17 08:04 07/17/17 08:04 07/17/17 08:04 07/17/17 08:04 Intake and Output: 07/17/17 07/17/17 06:59 18:59 Intake Total 865 Balance 865 - Medications Medications: Current Medications Acetaminophen (Tylenol 325mg Tab) 650 mg PO ONCE ONE Stop: 07/17/17 13:16 Bumetanide (Bumex) 1 mg PO DAILY [facility] Last Admin: 07/17/17 09:39 Dose: 1 mg Diphenhydramine HCl (Benadryl) 25 mg PO ONCE ONE Stop: 07/17/17 13:16 Ferric Sodium Gluconate Complex (Ferrlecit) 125 mg IVPB DAILY [facility] Stop: 07/22/17 10:01 Last Admin: 07/17/17 09:40 Dose: 125 mg Gabapentin (Neurontin) 300 mg PO BID [facility] Last Admin: 07/17/17 09:40 Dose: 300 mg Hydrocortisone (Anusol-Hc) 0 gm [place] BID [facility] Last Admin: 07/17/17 09:41 Dose: 1 applic Insulin Aspart (Novolog) 0 unit SC ACHS [facility] PRN Reason: Protocol Last Admin: 07/17/17 08:09 Dose: 1 unit Insulin Glargine (Lantus) 10 unit SC DAILY [facility] Last Admin: 07/17/17 09:40 Dose: 10 units Lactulose (Enulose) 20 gm PO HS [facility] Last Admin: 07/16/17 21:06 Dose: 20 gm Magnesium Hydroxide (Milk Of Magnesia) 30 ml PO DAILY PRN PRN Reason: Constipation Last Admin: 07/17/17 09:39 Dose: 30 ml Pantoprazole Sodium (Protonix Ec Tab) 40 mg PO DAILY [facility] Last Admin: 07/17/17 09:39 Dose: 40 mg Propranolol HCl (Inderal) 10 mg PO TID [facility] Last Admin: 07/17/17 09:39 Dose: 10 mg Rifaximin (Xifaxan) 550 mg PO BID [facility] Last Admin: 07/17/17 09:39 Dose: 550 mg Temazepam (Restoril) 15 mg PO HS [facility] Last Admin: 07/16/17 21:06 Dose: 15 mg Tramadol HCl (Ultram) 50 mg PO TID PRN PRN Reason: Pain, moderate (4-7) Last Admin: 07/17/17 01:06 Dose: 50 mg Trimethoprim/Sulfamethoxazole (Bactrim Ds Tab) 1 tab PO BID [facility] Last Admin: 07/17/17 09:40 Dose: 1 tab - Labs Labs: 07/17/17 07:15 07/17/17 07:15 PT 16.0 SECONDS (9.7-12.2) H 07/15/17 23:56 INR 1.4 07/15/17 23:56 APTT 43 SECONDS (21-34) H 07/15/17 23:56 - Head Exam Head Exam: ATRAUMATIC - Eye Exam Eye Exam: Normal appearance - ENT Exam ENT Exam: Mucous Membranes Dry - Respiratory Exam Respiratory Exam: NORMAL BREATHING PATTERN - Cardiovascular Exam Cardiovascular Exam: +S1, +S2 - GI/Abdominal Exam GI & Abdominal Exam: Normal Bowel Sounds Assessment and Plan (1) Pancytopenia Assessment & Plan: secondary to splenic sequestration iron deficiency PRBC transfusion support on IV ferrlecit daily Status: Acute (2) Coagulopathy Assessment & Plan: liver cirrhosis Status: Acute
--- NOTE | 2017-07-17 16:12 | CP.PCM.PN ---
Subjective - Date & Time of Evaluation Date of Evaluation: 07/17/17 Time of Evaluation: 09:45 - Subjective Subjective: PGY2 progress note for Dr. Curry's service: Patient seen and examined. Patient denies further episodes of bleeding per rectum. Patient describes episode where she went to use the bathroom to urinate and had BRBPR. Patient's hemoglobin increased to 8.2 after one unit PRBC. Patient to receive second unit and transfer back to [place]. Objective - Vital Signs/Intake and Output Vital Signs (last 24 hours): Temp Pulse Resp BP Pulse Ox 98.4 F 76 18 109/66 98 07/17/17 15:15 07/17/17 15:15 07/17/17 15:15 07/17/17 15:15 07/17/17 15:00 Intake and Output: 07/17/17 07/17/17 06:59 18:59 Intake Total 865 400 Output Total 600 Balance 865 -200 - Medications Medications: Current Medications Bumetanide (Bumex) 1 mg PO DAILY [facility] Last Admin: 07/17/17 09:39 Dose: 1 mg Ferric Sodium Gluconate Complex (Ferrlecit) 125 mg IVPB DAILY [facility] Stop: 07/22/17 10:01 Last Admin: 07/17/17 09:40 Dose: 125 mg Gabapentin (Neurontin) 300 mg PO BID [facility] Last Admin: 07/17/17 09:40 Dose: 300 mg Hydrocortisone (Anusol-Hc) 0 gm [place] BID [facility] Last Admin: 07/17/17 09:41 Dose: 1 applic Insulin Aspart (Novolog) 0 unit SC ACHS [facility] PRN Reason: Protocol Last Admin: 07/17/17 14:08 Dose: 2 unit Insulin Glargine (Lantus) 10 unit SC DAILY [facility] Last Admin: 07/17/17 09:40 Dose: 10 units Lactulose (Enulose) 20 gm PO HS [facility] Last Admin: 07/16/17 21:06 Dose: 20 gm Magnesium Hydroxide (Milk Of Magnesia) 30 ml PO DAILY PRN PRN Reason: Constipation Last Admin: 07/17/17 09:39 Dose: 30 ml Pantoprazole Sodium (Protonix Ec Tab) 40 mg PO DAILY [facility] Last Admin: 07/17/17 09:39 Dose: 40 mg Propranolol HCl (Inderal) 10 mg PO TID [facility] Last Admin: 07/17/17 13:35 Dose: 10 mg Rifaximin (Xifaxan) 550 mg PO BID [facility] Last Admin: 07/17/17 09:39 Dose: 550 mg Temazepam (Restoril) 15 mg PO HS [facility] Last Admin: 07/16/17 21:06 Dose: 15 mg Tramadol HCl (Ultram) 50 mg PO TID PRN PRN Reason: Pain, moderate (4-7) Last Admin: 07/17/17 01:06 Dose: 50 mg Trimethoprim/Sulfamethoxazole (Bactrim Ds Tab) 1 tab PO BID [facility] Last Admin: 07/17/17 09:40 Dose: 1 tab - Labs Labs: 07/17/17 07:15 07/17/17 07:15 PT 16.0 SECONDS (9.7-12.2) H 07/15/17 23:56 INR 1.4 07/15/17 23:56 APTT 43 SECONDS (21-34) H 07/15/17 23:56 - Constitutional Appears: Non-toxic, No Acute Distress - Head Exam Head Exam: ATRAUMATIC, NORMOCEPHALIC - Eye Exam Eye Exam: EOMI - ENT Exam ENT Exam: Mucous Membranes Moist - Respiratory Exam Respiratory Exam: Clear to Ausculation Bilateral, NORMAL BREATHING PATTERN - Cardiovascular Exam Cardiovascular Exam: +S1, +S2 - GI/Abdominal Exam GI & Abdominal Exam: Soft, Normal Bowel Sounds. absent: Tenderness - Extremities Exam Extremities Exam: Normal Inspection. absent: Pedal Edema - Neurological Exam Neurological Exam: Alert, Awake - Psychiatric Exam Psychiatric exam: Normal Affect - Skin Skin Exam: Dry, Warm Assessment and Plan - Assessment and Plan (Free Text) Assessment: Anemia 07/17: Hgb increased to 8.2 s/p 1 u PRBC, will transfuse one more unit, patient also received one dose IV ferrlicit today 07/16: Hgb droped to 7.2 -> transfused 1u PRBC referred for low hgb, low plts 24 but no bleeding - only transfuse platelets if < 20k EKG - NSR, 71bpm PICC request 2/2 poor venous access Pancytopenia 2/2 Liver Disease low plts 23 but no bleeding - only transfuse platelets if < 20k Bactrim Ds Tab) 1 tab PO BID [facility] Xifaxan) 550 mg PO BID [facility] Liver Cirrhosis with chronic high ammonia GI consult, Dr. Lazo, Dr. Washington- recommend clinical monitoring for hemorrhoidal bleeding, follow up with Dr. Arguello on discharge on daily Lactulose (follows up in [facility] [place]) Managed as outpatient by Dr Arguello. Stable. Encephalopathy, thrombocytopenia, and varices present Enulose) 20 gm PO HS [facility] Xifaxan) 550 mg PO BID [facility] ammonia level 30 External Hemorrhoids 07/17: external hemorrhoids not currently bleeding. Stool occult negative. 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 Ultram) 50 mg PO TID PRN Hypertension Continue home meds Bumex) 1 mg PO DAILY [facility] Inderal) 10 mg PO TID [facility] Diabetes Continue home meds Neurontin) 300 mg PO BID [facility] Novolog) 0 unit SC ACHS [facility] Lantus) 10 unit SC DAILY [facility] A1c 6.9, tsh, free t4, lipids Prophylaxis SCDs Milk Of Magnesia) 30 ml PO DAILY [facility] Protonix Ec Tab) 40 mg PO DAILY [facility] Restoril) 15 mg PO HS [facility] C/I to VTE proph. 2/2 GI bleed in last month. Case discussed with attending. All medical management as per Dr. Adalgisa Curry Patient is stable for discharge back to [place] per Dr. Curry after she receives second unit PRBC. Patient is to follow up with Dr. Arguello upon discharge. Patient is also to follow up with her cad engineer Dr. Maciel upon discharge. Patient is to resume home medications on discharge and should start taking PO iron supplementation. Patient should return to the ED if her symptoms reoccur or worsen.
[2017-07-17 16:56] VITALS: RESP 20
[2017-07-18 07:36] LABS: BASO % 0.8 % (0.0-2.0); EOS % 1.6 % (0.0-4.0); HEMATOCRIT 25.8 % (34.0-47.0); LYMPH # 0.3 K/uL (1.0-4.3); LYMPH % 22.7 % (20.0-40.0); MEAN CELL VOLUME 89.7 fL (81.0-99.0); MEAN CORPUSCULAR HEMOGLOBIN 30.6 pg (27.0-31.0); MEAN CORPUSCULAR HGB CONC 34.1 g/dL (33.0-37.0); MEAN PLATELET VOLUME 9.7 fL (7.2-11.7); MONO # 0.1 K/uL (0.0-0.8); MONO % 5.7 % (0.0-10.0); NRBC % 0.1 % (0.0-2.0); RED CELL DISTRIBUTION WIDTH 17.8 % (11.5-14.5)
[2017-07-18 07:46] LABS: WHITE BLOOD COUNT 1.3 K/uL (4.8-10.8)
[2017-07-18] MEDS: (Novolog) Insulin Aspart, Recombinant 100 u/ml 10 ml vial SC SCH ×3 (08:00→17:25)
[2017-07-18 08:06] LABS: CHLORIDE 106 mmol/L (98-107)
[2017-07-18 08:07] LABS: POTASSIUM 4.1 mmol/L (3.6-5.2); SODIUM 137 mmol/L (132-148)
[2017-07-18 08:09] LABS: ALB/GLOB RATIO 0.9 (1.0-2.1); ALKALINE PHOSPHATASE 109 U/L (38-126); ALT/SGPT 30 U/L (9-52); AST/SGOT 33 U/L (14-36); BILIRUBIN,TOTAL 3.2 mg/dL (0.2-1.3); BLOOD UREA NITROGEN 18 mg/dL (7-17); CARBON DIOXIDE 25 mmol/L (22-30); GFR AFRICAN-AMERICAN > 60; GLUCOSE,RANDOM 136 mg/dL (65-105); TOTAL PROTEIN 5.4 g/dL (6.3-8.3)
[2017-07-18 08:10] LABS: PHOSPHOROUS 2.8 mg/dL (2.5-4.5)
[2017-07-18 08:12] LABS: MAGNESIUM 1.8 mg/dL (1.6-2.3)
[2017-07-18] MEDS: Tmp-Smz 800 mg-160 mg DS Tab PO SCH ×2 (09:26→17:26)
[2017-07-18] MEDS: Ferric Sodium Gluconat Complex 62.5 mg/5 ml Vial IVPB SCH (09:27)
[2017-07-18] MEDS: Pantoprazole 40 mg EC Tab PO SCH (09:28)
[2017-07-18] MEDS: (Lantus) Insulin Glargine, Recombinant SC SCH (10:30)
--- NOTE | 2017-07-18 10:33 | CP.PCM.PN ---
Subjective - Date & Time of Evaluation Date of Evaluation: 07/18/17 Time of Evaluation: 10:40 - Subjective Subjective: F/U cirrhosis, anemia. No bleeding. Hemorrhoids- " are better." Denies abdom pain, fever, chills, SZ, LOC, GARCIA, cough, CP, SOB Objective - Vital Signs/Intake and Output Vital Signs (last 24 hours): Temp Pulse Resp BP Pulse Ox 98.5 F 82 20 115/70 97 07/18/17 10:00 07/18/17 10:00 07/18/17 10:00 07/18/17 10:00 07/18/17 10:00 Intake and Output: 07/18/17 07/18/17 06:59 18:59 Intake Total 320 Balance 320 - Medications Medications: Current Medications Bumetanide (Bumex) 1 mg PO DAILY [facility] Last Admin: 07/18/17 09:26 Dose: 1 mg Ferric Sodium Gluconate Complex (Ferrlecit) 125 mg IVPB DAILY [facility] Stop: 07/22/17 10:01 Last Admin: 07/18/17 09:27 Dose: 125 mg Gabapentin (Neurontin) 300 mg PO BID [facility] Last Admin: 07/18/17 09:28 Dose: 300 mg Hydrocortisone (Anusol-Hc) 0 gm [place] BID [facility] Last Admin: 07/17/17 17:49 Dose: 1 applic Insulin Aspart (Novolog) 0 unit SC ACHS [facility] PRN Reason: Protocol Last Admin: 07/18/17 08:00 Dose: Not Given Insulin Glargine (Lantus) 10 unit SC DAILY [facility] Last Admin: 07/17/17 09:40 Dose: 10 units Lactulose (Enulose) 20 gm PO HS [facility] Last Admin: 07/17/17 22:50 Dose: 20 gm Magnesium Hydroxide (Milk Of Magnesia) 30 ml PO DAILY PRN PRN Reason: Constipation Last Admin: 07/17/17 09:39 Dose: 30 ml Pantoprazole Sodium (Protonix Ec Tab) 40 mg PO DAILY [facility] Last Admin: 07/18/17 09:28 Dose: 40 mg Propranolol HCl (Inderal) 10 mg PO TID [facility] Last Admin: 07/18/17 09:27 Dose: 10 mg Rifaximin (Xifaxan) 550 mg PO BID [facility] Last Admin: 07/18/17 09:28 Dose: 550 mg Temazepam (Restoril) 15 mg PO HS [facility] Last Admin: 07/17/17 22:49 Dose: Not Given Tramadol HCl (Ultram) 50 mg PO TID PRN PRN Reason: Pain, moderate (4-7) Last Admin: 07/17/17 01:06 Dose: 50 mg Trimethoprim/Sulfamethoxazole (Bactrim Ds Tab) 1 tab PO BID [facility] Last Admin: 07/18/17 09:26 Dose: 1 tab - Labs Labs: 07/18/17 07:25 07/18/17 07:25 PT 16.0 SECONDS (9.7-12.2) H 07/15/17 23:56 INR 1.4 07/15/17 23:56 APTT 43 SECONDS (21-34) H 07/15/17 23:56 - Constitutional Appears: Well - Neck Exam Neck Exam: absent: Tenderness - Respiratory Exam Respiratory Exam: Clear to Ausculation Bilateral - Cardiovascular Exam Cardiovascular Exam: RRR - GI/Abdominal Exam GI & Abdominal Exam: Soft, Normal Bowel Sounds. absent: Tenderness - Extremities Exam Extremities Exam: absent: Calf Tenderness - Neurological Exam Neurological Exam: Alert, Oriented x3 Assessment and Plan (1) Cirrhosis Status: Acute (2) HCV (hepatitis C virus) Status: Acute (3) Asthma Status: Acute (4) HTN (hypertension) Status: Acute (5) Anemia Assessment & Plan: Getting Iron IV Status: Acute (6) Pancytopenia Status: Acute (7) GI bleed Assessment & Plan: hemorrhoids- better. Pt is not a great candidate for hemorrhoid surgery. Status: Acute (8) Hepatic encephalopathy Status: Acute (9) Thrombocytopenia Status: Acute (10) Internal hemorrhoid Status: Acute
[2017-07-18] MEDS: Hydrocortisone 2.5% Rectal Cream(30 gm) PR SCH ×2 (11:00→17:26)
--- NOTE | 2017-07-18 15:12 | CP.PCM.PN ---
Subjective - Date & Time of Evaluation Date of Evaluation: 07/18/17 Time of Evaluation: 09:45 - Subjective Subjective: PGY2 progress note for Dr. Curry Patient seen and examined. Patient's discharge held due to nausea following transfusion. Per patient, she feels "like a millions bucks" and is ready for transfer back to [place]. Patient denies further episodes of rectal bleeding. Objective - Vital Signs/Intake and Output Vital Signs (last 24 hours): Temp Pulse Resp BP Pulse Ox 98.5 F 82 20 115/70 97 07/18/17 10:00 07/18/17 10:00 07/18/17 10:00 07/18/17 10:00 07/18/17 10:00 Intake and Output: 07/18/17 07/18/17 06:59 18:59 Intake Total 320 710 Balance 320 710 - Medications Medications: Current Medications Bumetanide (Bumex) 1 mg PO DAILY [facility] Last Admin: 07/18/17 09:26 Dose: 1 mg Ferric Sodium Gluconate Complex (Ferrlecit) 125 mg IVPB DAILY [facility] Stop: 07/22/17 10:01 Last Admin: 07/18/17 09:27 Dose: 125 mg Gabapentin (Neurontin) 300 mg PO BID [facility] Last Admin: 07/18/17 09:28 Dose: 300 mg Hydrocortisone (Anusol-Hc) 0 gm [place] BID [facility] Last Admin: 07/18/17 11:00 Dose: 1 applic Insulin Aspart (Novolog) 0 unit SC ACHS [facility] PRN Reason: Protocol Last Admin: 07/18/17 11:34 Dose: 2 unit Insulin Glargine (Lantus) 10 unit SC DAILY [facility] Last Admin: 07/18/17 10:30 Dose: 10 units Lactulose (Enulose) 20 gm PO HS [facility] Last Admin: 07/17/17 22:50 Dose: 20 gm Magnesium Hydroxide (Milk Of Magnesia) 30 ml PO DAILY PRN PRN Reason: Constipation Last Admin: 07/17/17 09:39 Dose: 30 ml Pantoprazole Sodium (Protonix Ec Tab) 40 mg PO DAILY [facility] Last Admin: 07/18/17 09:28 Dose: 40 mg Propranolol HCl (Inderal) 10 mg PO TID [facility] Last Admin: 07/18/17 13:40 Dose: 10 mg Rifaximin (Xifaxan) 550 mg PO BID [facility] Last Admin: 07/18/17 09:28 Dose: 550 mg Temazepam (Restoril) 15 mg PO HS [facility] Last Admin: 07/17/17 22:49 Dose: Not Given Tramadol HCl (Ultram) 50 mg PO TID PRN PRN Reason: Pain, moderate (4-7) Last Admin: 07/17/17 01:06 Dose: 50 mg Trimethoprim/Sulfamethoxazole (Bactrim Ds Tab) 1 tab PO BID [facility] Last Admin: 07/18/17 09:26 Dose: 1 tab - Labs Labs: 07/18/17 07:25 07/18/17 07:25 PT 16.0 SECONDS (9.7-12.2) H 07/15/17 23:56 INR 1.4 07/15/17 23:56 APTT 43 SECONDS (21-34) H 07/15/17 23:56 - Constitutional Appears: Non-toxic, No Acute Distress - Head Exam Head Exam: ATRAUMATIC, NORMOCEPHALIC - Eye Exam Eye Exam: EOMI - ENT Exam ENT Exam: Mucous Membranes Moist - Respiratory Exam Respiratory Exam: Clear to Ausculation Bilateral - Cardiovascular Exam Cardiovascular Exam: +S1, +S2 - GI/Abdominal Exam GI & Abdominal Exam: Soft, Normal Bowel Sounds. absent: Tenderness - Extremities Exam Extremities Exam: Normal Inspection. absent: Pedal Edema Additional comments: PICC line right arm - Neurological Exam Neurological Exam: Alert, Awake - Psychiatric Exam Psychiatric exam: Normal Affect, Normal Mood - Skin Skin Exam: Dry, Warm Assessment and Plan - Assessment and Plan (Free Text) Assessment: Anemia 07/18: Hgb increased to 8.8 s/p 2 u PRBC, received one dose ferrlicit today 07/17: Hgb increased to 8.2 s/p 1 u PRBC, will transfuse one more unit, patient also received one dose IV ferrlicit today 07/16: Hgb droped to 7.2 -> transfused 1u PRBC referred for low hgb, low plts 24 but no bleeding - only transfuse platelets if < 20k EKG - NSR, 71bpm PICC request 2/2 poor venous access Pancytopenia 2/2 Liver Disease low plts 26 but no bleeding - only transfuse platelets if < 20k Bactrim Ds Tab) 1 tab PO BID [facility] Xifaxan) 550 mg PO BID [facility] Liver Cirrhosis with chronic high ammonia GI consult, Dr. Lazo, Dr. [place]- recommend clinical monitoring for hemorrhoidal bleeding, follow up with Dr. Arguello on discharge on daily Lactulose (follows up in [facility] [place]) Managed as outpatient by Dr Arguello. Stable. Encephalopathy, thrombocytopenia, and varices present Enulose) 20 gm PO HS [facility] Xifaxan) 550 mg PO BID [facility] ammonia level 30 on admission External Hemorrhoids 07/18: external hemorrhoids not currently bleeding 07/16: Stool occult negative. 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 Ultram) 50 mg PO TID PRN Hypertension Continue home meds Bumex) 1 mg PO DAILY [facility] Inderal) 10 mg PO TID [facility] Diabetes Continue home meds Neurontin) 300 mg PO BID [facility] Novolog) 0 unit SC ACHS [facility] Lantus) 10 unit [place] DAILY [facility] A1c 6.9, tsh, free t4, lipids Prophylaxis SCDs Milk Of Magnesia) 30 ml PO DAILY PRN Protonix Ec Tab) 40 mg PO DAILY [facility] Restoril) 15 mg PO HS [facility] C/I to VTE proph. 2/2 GI bleed in last month. Case discussed with attending. All medical management as per Dr. Adalgisa Curry Patient is stable for discharge back to [place] per Dr. Curry. Patient is to follow up with Dr. Arguello upon discharge. Patient is also to follow up with her assistant news director Dr. Maciel upon discharge. Patient is to resume home medications on discharge and should start taking PO iron supplementation. Patient should return to the ED if her symptoms reoccur or worsen.
[2017-07-18 16:12] VITALS: BP 108/55; PULSE 80; TEMP 98.2; O2SAT 96
--- NOTE | 2017-07-23 13:32 | DS ---
The patient came to the hospital with chief complaint of anemia, thrombocytopenia, GI bleeding. The patient came to the ER, advised admission. The patient was addressed with supportive care and hematology consult. The patient's fever have improved. She will be followed as an outpatient for diverticulosis and anemia. Letitia Curry MD
== END 2017-07-18 19:08 | DRG 394 ==
LOC: C.ER 23:18 → C.3T 23:52
PROVIDERS: ADMIT Internal Medicine Pulmonary Disease; ATTEND Internal Medicine Pulmonary Disease
PROC: 30233N1 Transfusion of Nonautologous Red Blood Cells into Peripheral Vein, Percutaneous Approach (ICD-10-PCS; principal; 2017-07-16)
PROC: 02HV33Z Insertion of Infusion Device into Superior Vena Cava, Percutaneous Approach (ICD-10-PCS; 2017-07-17)
DX: K64.4 Residual hemorrhoidal skin tags (principal); D61.818 Other pancytopenia; D68.9 Coagulation defect, unspecified; K76.6 Portal hypertension; B19.10 Unspecified viral hepatitis B without hepatic coma; E11.40 Type 2 diabetes mellitus with diabetic neuropathy, unspecified; D50.0 Iron deficiency anemia secondary to blood loss (chronic); K64.8 Other hemorrhoids; K74.60 Unspecified cirrhosis of liver; K57.30 Diverticulosis of large intestine without perforation or abscess without bleeding; I10 Essential (primary) hypertension; K72.90 Hepatic failure, unspecified without coma; M81.0 Age-related osteoporosis without current pathological fracture; F32.9 Major depressive disorder, single episode, unspecified; F41.9 Anxiety disorder, unspecified; M17.9 Osteoarthritis of knee, unspecified; J45.909 Unspecified asthma, uncomplicated; B19.20 Unspecified viral hepatitis C without hepatic coma; Z90.49 Acquired absence of other specified parts of digestive tract; Z79.4 Long term (current) use of insulin; Z80.8 Family history of malignant neoplasm of other organs or systems; Z88.0 Allergy status to penicillin

== ENCOUNTER 2017-09-03 18:49 | Emergency (ER) | payer MEDICARE, MEDICAID ==
[2017-09-03 18:49] VITALS: BMI 27.7
--- NOTE | 2017-09-03 20:05 | C.PDOC ---
History Of Present Illness 72 year old female with a Hx of chronic lower extremity pain and old lower extremity fracture who presents to the ER requesting new pain medication. Patient states she goes to rehab for pain management and is currently taking tylenol PO but reports it no longer helps for the pain. Denies recent trauma or fall. Time Seen by Provider: 09/03/17 19:19 Chief Complaint (Nursing): Lower Extremity Problem/Injury History Per: Patient History/Exam Limitations: no limitations Onset/Duration Of Symptoms: Days Current Symptoms Are (Timing): Still Present Recent travel outside of the [place]: No Past Medical History Reviewed: Historical Data, Nursing Documentation, Vital Signs Vital Signs: Last Vital Signs Temp 97.9 F 09/03/17 20:43 Pulse 85 09/03/17 20:43 Resp 18 09/03/17 20:43 BP 152/76 H 09/03/17 20:43 Pulse Ox 96 09/04/17 00:25 - Medical History PMH: Anemia, Anxiety, Arthritis (KNEE), Asthma, Bronchitis, Depression, Diabetes , Diverticulitis, Gastritis, Gall Bladder Disease, Hepatitis (C), HTN, Osteoporosis, Chronic Pain Surgical History: Appendectomy, Cholecystectomy - [facility] Procedures CORONAR ARTERIOGR-2 CATH (08/02/15) INSERTION OF INFUSION DEV INTO SUP VENA CAVA, PERC APPROACH (07/15/17) INSPECTION OF LOWER INTESTINAL TRACT, ENDO (07/11/16) LEFT HEART CARDIAC CATH (08/02/15) LT HEART ANGIOCARDIOGRAM (08/02/15) OTHER ENDOSCOPY OF SM INTEST (07/09/13) TRANSFUSE NONAUT RED BLOOD CELLS IN PERIPH VEIN, PERC (07/15/17) VACCINATION NEC (07/16/14) Family History: States: Unknown Family Hx - Social History Hx Tobacco Use: No Hx Alcohol Use: No Hx Substance Use: No - Immunization History Hx Tetanus Toxoid Vaccination: No (NOT SURE) Hx Influenza Vaccination: No Hx Pneumococcal Vaccination: No Review Of Systems Musculoskeletal: Positive for: Leg Pain Neurological: Negative for: Weakness, Numbness Physical Exam - Physical Exam Appears: Non-toxic, No Acute Distress Skin: Normal Color, Warm, Dry Head: Atraumatic, Normacephalic Eye(s): bilateral: Normal Inspection, EOMI Extremity: Tenderness (with palpation diffusely to right lower leg), No Calf Tenderness, No Deformity, No Swelling Extremity: Bilateral: Normal Color And Temperature Pulses: Left Dorsalis Pedis: Normal, Right Dorsalis Pedis: Normal Neurological/Psych: Oriented x3, Normal Speech, Normal Cognition, Normal Motor, Normal Sensation Gait: Unable To Assess ED Course And Treatment O2 Sat by Pulse Oximetry: 96 (Room air) Progress Note: Tylenol and tramadol administered. Discussed with Dr. Belinda Calderon, patient's PMD, who wants patient to follow up with her at her office for reassessment and possible usp placement. Patient is ambulatory to the bathroom in the ER with assistance, she reports improvement of pain. Patient awaiting ambulance for transport home. Reevaluation Time: 22:40 Reassessment Condition: Improved Disposition Counseled Patient/Family Regarding: Diagnosis, Need For Followup, Rx Given - Disposition Disposition: HOME/ ROUTINE Disposition Time: 20:46 Condition: STABLE Additional Instructions: Please follow up with Dr Calderon on 09/05 between 1-6pm Return to ER if worse Prescriptions: traMADol [Ultram] 50 mg PO TID #10 tab Instructions: Chronic Pain (ED) Forms: [facility] (Uzbek) - Clinical Impression Clinical Impression: Chronic pain - Scribe Statement The provider has reviewed the documentation as recorded by the Scribe Radhames aSlazar All medical record entries made by the Scribe were at my direction and personally dictated by me. I have reviewed the chart and agree that the record accurately reflects my personal performance of the history, physical exam, medical decision making, and the department course for this patient. I have also personally directed, reviewed, and agree with the discharge instructions and disposition.
[2017-09-03 20:44] VITALS: BP 152/76; PULSE 85; RESP 18; TEMP 97.9
[2017-09-03 20:46] VITALS: O2SAT 96
== END 2017-09-03 23:06 | disposition home or self-care (01) ==
LOC: C.ER 18:49
DX: G89.29 Other chronic pain (principal); M79.661 Pain in right lower leg

== ENCOUNTER 2017-09-08 18:31 | Emergency (ER) | payer MEDICARE, MEDICAID ==
[2017-09-08 18:32] VITALS: BMI 27.7
[2017-09-08 18:48] VITALS: TEMP 98.1; O2SAT 97
[2017-09-08] MEDS ORDERED: Iohexol 240 (50 ml) PO STA (19:33)
[2017-09-08] MEDS ORDERED: Iohexol 240 (50 ml) ONE (19:43)
[2017-09-08 19:45] LABS: BASO % 0.4 % (0.0-2.0); EOS % 2.1 % (0.0-4.0); HEMATOCRIT 28.7 % (34.0-47.0); LYMPH # 0.4 K/uL (1.0-4.3); LYMPH % 18.2 % (20.0-40.0); MEAN CELL VOLUME 94.3 fL (81.0-99.0); MEAN CORPUSCULAR HEMOGLOBIN 32.3 pg (27.0-31.0); MEAN CORPUSCULAR HGB CONC 34.3 g/dL (33.0-37.0); MEAN PLATELET VOLUME 8.3 fL (7.2-11.7); MONO # 0.1 K/uL (0.0-0.8); MONO % 6.2 % (0.0-10.0); NRBC % 0.1 % (0.0-2.0); RED CELL DISTRIBUTION WIDTH 16.4 % (11.5-14.5); WHITE BLOOD COUNT 2.3 K/uL (4.8-10.8)
[2017-09-08 19:53] LABS: CHLORIDE 92 mmol/L (98-107); POTASSIUM 4.5 mmol/L (3.6-5.2); SODIUM 131 mmol/L (132-148)
[2017-09-08 19:55] LABS: ALB/GLOB RATIO 0.8 (1.0-2.1); ALKALINE PHOSPHATASE 133 U/L (38-126); AST/SGOT 39 U/L (14-36); BILIRUBIN,TOTAL 4.4 mg/dL (0.2-1.3); BLOOD UREA NITROGEN 12 mg/dL (7-17); CARBON DIOXIDE 30 mmol/L (22-30); GFR AFRICAN-AMERICAN > 60; INR 1.5; TOTAL PROTEIN 6.4 g/dL (6.3-8.3)
[2017-09-08 19:56] LABS: ALT/SGPT 34 U/L (9-52); CALCIUM 8.5 mg/dl (8.6-10.4)
[2017-09-08 20:00] LABS: GLUCOSE,RANDOM 552 mg/dL (65-105)
[2017-09-08] MEDS ORDERED: (Novolin R) Insulin Human Regular 100 units/ml vial IV STA (20:01)
[2017-09-08] MEDS ORDERED: (Novolin R) Insulin Human Regular 100 units/ml vial ONE (20:12)
[2017-09-08] MEDS ORDERED: Sodium Chloride 0.9% 1,000 ML IV SCH (20:15)
[2017-09-08 20:18] VITALS: BP 148/49; PULSE 82; RESP 16
[2017-09-08] MEDS ORDERED: Iodixanol 320 mg/ml 150 ml Bottle IV ONE (20:53)
--- NOTE | 2017-09-08 21:42 | CT ---
EXAM: CT Abdomen and Pelvis With Intravenous Contrast CLINICAL HISTORY: 72 years old, female; Pain; Abdominal pain; Periumbilical; Additional info: Lower abdominal pain TECHNIQUE: Axial computed tomography images of the abdomen and pelvis with intravenous contrast. All CT scans at this facility use one or more dose reduction techniques, viz.: automated exposure control; ma/kV adjustment per patient size (including targeted exams where dose is matched to indication; i.e. head); or iterative reconstruction technique. Coronal and sagittal reformatted images were created and reviewed. CONTRAST: 100 mL of [id number] administered intravenously. COMPARISON: US - ABDOMEN COMPLETE 2016-03-13 09:04 FINDINGS: Lower thorax: The bilateral lung bases are clear. ABDOMEN: Liver: No acute findings. Gallbladder and bile ducts: The gallbladder is surgically absent. No significant intra- or extrahepatic biliary ductal dilation. Pancreas: Enhances homogeneously. Trace infiltration of the peripancreatic fat at the level of the head of the pancreas, findings suggesting early/acute pancreatitis, for which clinical and serologic correlation is needed. Spleen: Markedly enlarged, unchanged. Adrenals: No acute findings. Kidneys and ureters: No acute findings. No hydronephrosis or renal calculi. No discrete solid mass. PELVIS: Bladder: No acute findings. Reproductive: No acute findings. Appendix: The air filled appendix is of normal caliber (series 2, image 56) . ABDOMEN and PELVIS: Stomach and bowel: Thickening of multiple loops of proximal small bowel, without surrounding inflammation or fluid to confirm an acute enteritis. Peritoneum: As above. Lymph nodes: No pathologically enlarged lymph nodes. Vasculature: Extensive upper abdominal varices suggesting portal hypertension. The portal vein is patent, without cavernous transformation. Bones: No acute fracture. IMPRESSION: Findings suggesting acute/early pancreatitis, for which clinical and serologic correlation is needed. Thickening of multiple loops of proximal small bowel, without surrounding inflammation or fluid to confirm an acute enteritis. Findings consistent with portal hypertension. Splenomegaly, unchanged.
[2017-09-08 22:18] LABS: RBC URINE 1 /hpf (0-3); URINE BACTERIA OCC (<OCC); URINE BILIRUBIN NEGATIVE (NEGATIVE); URINE BLOOD NEGATIVE (NEGATIVE); URINE COLOR Yellow (YELLOW); URINE GLUCOSE (UA) 3+ mg/dL (Normal); URINE KETONE NEGATIVE (NEGATIVE); URINE LEUKOCYTE ESTERASE NEG Leu/uL (Negative); URINE PROTEIN NEGATIVE (NEGATIVE); WBC URINE 3 /hpf (0-5)
--- NOTE | 2017-09-09 01:51 | C.PDOC ---
History Of Present Illness 72 year old female presents to the ER with a complaint of suprapubic abdominal pain and rectal bleeding since yesterday. Patient has a Hx of rectal bleed in the past and is currently able to tolerate all PO. Denies nausea, vomiting, or fever. Time Seen by Provider: 09/08/17 19:14 Chief Complaint (Nursing): Abdominal Pain History Per: Patient History/Exam Limitations: no limitations Onset/Duration Of Symptoms: Days Current Symptoms Are (Timing): Still Present Location Of Pain/Discomfort: Suprapubic Radiation Of Pain To:: None Quality Of Discomfort: Unable To Describe Associated Symptoms: Other (Rectal bleed). denies: Fever, Chills, Nausea, Vomiting Exacerbating Factors: None Alleviating Factors: None Recent travel outside of the [place]: No Abnormal Vaginal Bleeding: No Past Medical History Reviewed: Historical Data, Nursing Documentation, Vital Signs Vital Signs: Last Vital Signs Temp 98.1 F 09/08/17 18:46 Pulse 82 09/08/17 20:18 Resp 16 09/08/17 20:18 BP 148/49 L 09/08/17 20:18 Pulse Ox 97 09/09/17 01:53 - Medical History PMH: Anemia, Anxiety, Arthritis (KNEE), Asthma, Bronchitis, Depression, Diabetes , Diverticulitis, Gastritis, Gall Bladder Disease, Hepatitis (C), HTN, Osteoporosis, Chronic Pain Surgical History: Appendectomy, Cholecystectomy - [facility] Procedures CORONAR ARTERIOGR-2 CATH (08/02/15) INSERTION OF INFUSION DEV INTO SUP VENA CAVA, PERC APPROACH (07/15/17) INSPECTION OF LOWER INTESTINAL TRACT, ENDO (07/11/16) LEFT HEART CARDIAC CATH (08/02/15) LT HEART ANGIOCARDIOGRAM (08/02/15) OTHER ENDOSCOPY OF SM INTEST (07/09/13) TRANSFUSE NONAUT RED BLOOD CELLS IN PERIPH VEIN, PERC (07/15/17) VACCINATION NEC (07/16/14) Family History: States: Unknown Family Hx - Social History Hx Tobacco Use: No Hx Alcohol Use: No Hx Substance Use: No - Immunization History Hx Tetanus Toxoid Vaccination: No (NOT SURE) Hx Influenza Vaccination: No Hx Pneumococcal Vaccination: No Review Of Systems Constitutional: Negative for: Fever, Chills Gastrointestinal: Positive for: Abdominal Pain, Other (Rectal bleed). Negative for: Nausea, Vomiting Physical Exam - Physical Exam Appears: Non-toxic, No Acute Distress Skin: Normal Color, Warm, Dry Head: Atraumatic, Normacephalic Oral Mucosa: Moist Chest: Symmetrical, No Tenderness Cardiovascular: Rhythm Regular Respiratory: Normal Breath Sounds, No Rales, No Rhonchi, No Wheezing Gastrointestinal/Abdominal: Soft, Tenderness (Suprapubic), No Guarding, No Rebound Neurological/Psych: Oriented x3, Normal Speech, Normal Cognition ED Course And Treatment - Laboratory Results Result Diagrams: 09/08/17 19:42 09/08/17 19:42 O2 Sat by Pulse Oximetry: 97 (Room air) Pulse Ox Interpretation: Normal Progress Note: Blood work, CT abd/pel, and urinalysis ordered. Insulin, macrobid , and IV fluids administered. Disposition - Disposition Referrals: Belinda Calderon MD [Medical Doctor] - Disposition: HOME/ ROUTINE Disposition Time: 22:30 Condition: GOOD Additional Instructions: Thank you for letting us take care of you today. Your provider was Dr. Webber. You were treated for rectal bleeding and a UTI. The emergency medical care you received today was directed at your acute symptoms. If you were prescribed any medication, please fill it and take as directed. It may take several days for your symptoms to resolve. Return to the Emergency Department if your symptoms worsen, do not improve, or if you have any other problems. Please contact your doctor or call one of the physicians/clinics you have been referred to that are listed on the Patient Visit Information form that is included in your discharge packet. Bring any paperwork you were given at discharge with you along with any medications you are taking to your follow up visit. Our treatment cannot replace ongoing medical care by a primary care provider (PCP) outside of the emergency department. Thank you for allowing the [facility] team to be part of your care today. Follow up with your doctor in 2-3 days for outpatient care and further management. Prescriptions: Nitrofurantoin Macrocrystals [Macrobid] 100 mg PO Q12 #10 cap Instructions: Urinary Tract Infection in Women (ED) Forms: [facility] (Comoran) - Clinical Impression Clinical Impression: Abdominal pain, UTI (urinary tract infection) - Scribe Statement The provider has reviewed the documentation as recorded by the Scribe Radhames Salazar All medical record entries made by the Scribe were at my direction and personally dictated by me. I have reviewed the chart and agree that the record accurately reflects my personal performance of the history, physical exam, medical decision making, and the department course for this patient. I have also personally directed, reviewed, and agree with the discharge instructions and disposition.
== END 2017-09-08 23:54 | disposition home or self-care (01) ==
LOC: C.ER 18:31
DX: N39.0 Urinary tract infection, site not specified (principal); R10.30 Lower abdominal pain, unspecified; E11.9 Type 2 diabetes mellitus without complications
CPT/HCPCS: 74177; 80053; 81001; 82948; 83690; 85025; 85610; 85730; 87086; 96374; 99285; J7040; Q9966; Q9967

== ENCOUNTER 2017-11-08 20:27 | Inpatient (IN) | payer MEDICARE, MEDICAID ==
[2017-11-08 20:36] VITALS: BMI 24.0
[2017-11-08] MEDS ORDERED: HYDROmorphone 1 mg/ml ISec IVP STA ×2 (20:40→23:28)
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
[2017-11-08 21:52] LABS: BASO % 0.6 % (0.0-2.0); EOS % 1.5 % (0.0-4.0); HEMOGLOBIN 11.3 g/dL (11.0-16.0); LYMPH # 0.3 K/uL (1.0-4.3); LYMPH % 20.2 % (20.0-40.0); MEAN CELL VOLUME 95.3 fL (81.0-99.0); MEAN CORPUSCULAR HEMOGLOBIN 32.8 pg (27.0-31.0); MEAN CORPUSCULAR HGB CONC 34.4 g/dL (33.0-37.0); MEAN PLATELET VOLUME 8.4 fL (7.2-11.7); MONO # 0.1 K/uL (0.0-0.8); MONO % 4.3 % (0.0-10.0); NEUT # 0.9 K/uL (1.8-7.0); NEUT % 73.4 % (50.0-75.0); NRBC % 0.1 % (0.0-2.0); RBC 3.45 Mil/uL (3.80-5.20)
[2017-11-08 22:06] LABS: ALB/GLOB RATIO 0.9 (1.0-2.1); ALT/SGPT 32 U/L (9-52); AST/SGOT 63 U/L (14-36); BLOOD UREA NITROGEN 4 mg/dL (7-17); CALCIUM 8.3 mg/dl (8.6-10.4); GFR AFRICAN-AMERICAN > 60; GFR NON-AFRICAN AMERICAN > 60
[2017-11-08 22:07] LABS: WHITE BLOOD COUNT 1.2 K/uL (4.8-10.8)
[2017-11-08 22:11] LABS: INR 1.5; PROTHROMBIN TIME 16.7 SECONDS (9.7-12.2)
[2017-11-08] MEDS ORDERED: Sodium Chloride 0.9% 1,000 ML IV ONE (23:28)
[2017-11-09 07:49] LABS: BASO % 0.4 % (0.0-2.0); EOS % 0.1 % (0.0-4.0); HEMOGLOBIN 12.3 g/dL (11.0-16.0); LYMPH # 0.3 K/uL (1.0-4.3); LYMPH % 4.1 % (20.0-40.0); MEAN CELL VOLUME 94.7 fL (81.0-99.0); MEAN CORPUSCULAR HGB CONC 34.8 g/dL (33.0-37.0); MEAN PLATELET VOLUME 8.3 fL (7.2-11.7); MONO # 0.5 K/uL (0.0-0.8); NEUT # 7.4 K/uL (1.8-7.0); NEUT % 89.4 % (50.0-75.0); NRBC % 0.1 % (0.0-2.0); RBC 3.74 Mil/uL (3.80-5.20); RED CELL DISTRIBUTION WIDTH 15.5 % (11.5-14.5)
[2017-11-09 07:59] LABS: PLATELET COUNT 49 K/uL (130-400); WHITE BLOOD COUNT 8.2 K/uL (4.8-10.8)
[2017-11-09] MEDS: (Novolog) Insulin Aspart, Recombinant 100 u/ml 10 ml vial SC SCH ×4 (08:35→22:22)
--- NOTE | 2017-11-09 08:42 | RAD ---
HISTORY: fall COMPARISON: Comparison is made to 07/15/2017 FINDINGS: LUNGS: No significant interval change in the lungs noted since the previous exam. PLEURA: No significant pleural effusion identified, no pneumothorax apparent. CARDIOVASCULAR: Normal. OSSEOUS STRUCTURES: No significant abnormalities. VISUALIZED UPPER ABDOMEN: Normal. OTHER FINDINGS: None. IMPRESSION: No active disease.
--- NOTE | 2017-11-09 08:46 | RAD ---
PROCEDURE: Radiographs of the pelvis. HISTORY: fall COMPARISON: Comparison is made with the previous study dated 04/09/2013 FINDINGS: BONES: Pelvic Bones: Diffuse osteopenia noted in the visualized osseous structures Hips: There is comminuted mildly displaced fracture at the right intertrochanteric region associated with mild superior displacement of the right femoral shaft. JOINTS: Sacroiliac Joints: [id number] osteoarthritic changes. Pubic Symphysis: [id number] osteoarthritic changes. OTHER FINDINGS: None. IMPRESSION: Acute comminuted and displaced right intertrochanteric fracture. [id number] osteopenia.
--- NOTE | 2017-11-09 08:47 | RAD ---
PROCEDURE: Right Knee Radiographs. HISTORY: fall COMPARISON: None. FINDINGS: BONES: Diffuse osteopenia noted. No evidence of acute fracture in this one view of the right knee JOINTS: Severe osteoarthritic changes JOINT EFFUSION: None. OTHER FINDINGS: None. IMPRESSION: Limited only one view of the right knee was obtained. No evidence of acute fracture. Advanced osteoarthritic changes.
[2017-11-09] MEDS: Pantoprazole 40 mg EC Tab PO SCH (09:02)
[2017-11-09 09:30] LABS: BANDS 1 % (0-2); LYMPHOCYTE 1 % (20-40); MONOCYTE 4 % (0-10); NEUTROPHIL 94 % (50-75); TOTAL CELLS COUNTED 100
[2017-11-09 09:32] LABS: ANISOCYTOSIS SLIGHT; PLATELET ESTIMATE DECREASED (NORMAL)
[2017-11-09 09:33] LABS: OVALOCYTES SLIGHT; POLYCHROMIC SLIGHT
[2017-11-09] MEDS ORDERED: Enoxaparin 40 mg Syringe SC SCH (10:00)
--- NOTE | 2017-11-09 10:03 | CT ---
PROCEDURE: CT Pelvis without contrast HISTORY: rule out pathological pelvis fractures COMPARISON: Comparison is made to the previous CT of the abdomen and pelvis dated 09/08/2017 TECHNIQUE: Contiguous axial images of the pelvis . No intravenous or oral contrast given. Coronal and sagittal reformats generated. 3D reconstructed images of the pelvis osseous structures were also processed and submitted for evaluation. Radiation dose: Total exam DLP = 420.61 mGy-cm. This CT exam was performed using one or more of the following dose reduction techniques: Automated exposure control, adjustment of the mA and/or kV according to patient size, and/or use of iterative reconstruction technique. FINDINGS: BLADDER: There is a George catheter in the bladder. The bladder is not distended. REPRODUCTIVE ORGANS: The uterus is again slightly prominent in size for the patient's age. No evidence of mass lesion at the adnexa. VISUALIZED BOWEL: No evidence of acute pathology in the visualized portion of the bowel. PERITONEUM: Unremarkable, as visualized. No free fluid. No free air. LYMPH NODES: Unremarkable. No enlarged lymph nodes. BONES: Diffuse osteopenia is again noted. There is acute comminuted and displaced fracture at the right intertrochanteric femur associated with displaced bony fragments. There is also superior displacement of the right femoral shaft. Nondisplaced fracture at the right inferior pubic ramus VASCULATURE: Unremarkable. OTHER FINDINGS: Mild soft tissue edema and swelling air noted around the right femoral neck and proximal right femur shaft. IMPRESSION: Diffuse osteopenia. Acute displaced right intertrochanteric femoral fracture associated with displaced bony fragments and superior displacement of the right femoral shaft. Nondisplaced fracture at the right inferior pubic ramus No evidence of hematoma or free fluid in the pelvis.
--- NOTE | 2017-11-09 10:09 | CT ---
PROCEDURE: CT of the right hip without contrast. HISTORY: evaluate for right hip pathological fracture COMPARISON: Comparison is made with the previous same-day x-ray of the right hip. TECHNIQUE: Axial and reformatted coronal and sagittal CT images of the right hip were obtained without IV contrast administration. 3D reconstructed images of the right hip were processed and submitted for evaluation. Total dose D LP: 291.76 FINDINGS: There are comminuted displaced fracture at the right intertrochanteric femur associated with displaced bony fragment at the lesser trochanter. There are also adjacent small displaced fragment. There is no evidence of dislocation at the right hip. Mildly superior displacement of the right femoral shaft. There is a nondisplaced fracture at the right inferior pubic ramus. IMPRESSION: Acute comminuted and displaced right intertrochanteric fractures associated with displaced bony fragment at the lesser trochanter. Acute nondisplaced right inferior pubic ramus fracture.
[2017-11-09] MEDS: DiphenhydrAMINE 50 mg/ml Inj IVP PRN (13:10)
--- NOTE | 2017-11-09 15:15 | CP.PCM.HP ---
Past Patient History - Infectious Disease Hx of Infectious Diseases: None - Past Medical History & Family History Past Medical History?: Yes - Past Social History Smoking Status: Former Smoker - CARDIAC Hx Hypertension: Yes - PULMONARY Hx Asthma: Yes Hx Bronchitis: Yes - NEUROLOGICAL Other/Comment: SEVERE NEUROPATHY, hepatic encephalopathy. subdural hematoma - HEENT Hx HEENT Problems: Yes Other/Comment: Dimished vision bilateral - RENAL Hx Chronic Kidney Disease: No - ENDOCRINE/METABOLIC Hx Endocrine Disorders: Yes Hx Diabetes Mellitus Type 1: Yes Hx Diabetes Mellitus Type 2: Yes - HEMATOLOGICAL/ONCOLOGICAL Hx Anemia: Yes - INTEGUMENTARY Hx Psoriasis: Yes - MUSCULOSKELETAL/RHEUMATOLOGICAL Hx Falls: Yes - GASTROINTESTINAL Hx Diverticulitis: Yes Hx Gall Bladder Disease: Yes Hx Gastritis: Yes - GENITOURINARY/GYNECOLOGICAL Hx Genitourinary Disorders: No - PSYCHIATRIC Hx Substance Use: No - SURGICAL HISTORY Hx Appendectomy: Yes Hx Cholecystectomy: Yes - ANESTHESIA Hx Anesthesia: Yes Hx Anesthesia Reactions: No Hx Malignant Hyperthermia: No Meds Allergies/Adverse Reactions: Allergies Allergy/AdvReac Type Severity Reaction Status Date / Time acetaminophen [From Percocet] Allergy RASH Verified 11/08/17 20:36 aspirin Allergy RASH Verified 11/08/17 20:36 oxycodone HCl [From Percocet] Allergy RASH Verified 11/08/17 20:36 Penicillins Allergy RASH Verified 11/08/17 20:36 PAIN MEDICATIONS Allergy Uncoded 11/08/17 20:36 Physical Exam - Constitutional Appears: Well - Head Exam Head Exam: ATRAUMATIC, NORMAL INSPECTION, NORMOCEPHALIC - Eye Exam Eye Exam: EOMI, Normal appearance, PERRL Pupil Exam: NORMAL ACCOMODATION, PERRL - ENT Exam ENT Exam: Mucous Membranes Moist, Normal Exam - Neck Exam Neck exam: Positive for: Normal Inspection - Respiratory Exam Respiratory Exam: Decreased Breath Sounds - Cardiovascular Exam Cardiovascular Exam: REGULAR RHYTHM, +S1, +S2 - GI/Abdominal Exam GI & Abdominal Exam: Diminished Bowel Sounds, Soft - Rectal Exam Rectal Exam: Deferred Results - Vital Signs Recent Vital Signs: Last Vital Signs Temp 97.8 F 11/09/17 09:07 Pulse 73 11/09/17 09:07 Resp 20 11/09/17 09:07 BP 151/79 H 11/09/17 09:07 Pulse Ox 95 11/09/17 09:07 - Labs Result Diagrams: 11/09/17 07:26 11/08/17 21:47 Labs: Laboratory Results - last 24 hr 11/08/17 11/08/17 11/08/17 20:36 21:47 21:47 WBC 1.2 L* RBC 3.45 L Hgb 11.3 Hct 32.9 L MCV 95.3 MCH 32.8 H MCHC 34.4 RDW 15.0 H Plt Count 26 L* D MPV 8.4 Neut % (Auto) 73.4 Lymph % (Auto) 20.2 [place] % (Auto) 4.3 Eos % (Auto) 1.5 Baso % (Auto) 0.6 Neut # 0.9 L Lymph # 0.3 L [place] # 0.1 Eos # 0.0 Baso # 0.0 Neutrophils % (Manual) Band Neutrophils % Lymphocytes % (Manual) Monocytes % (Manual) Platelet Estimate Polychromasia Anisocytosis (manual) Macrocytosis (manual) Ovalocytes PT 16.7 H INR 1.5 APTT 35 H Sodium Potassium Chloride Carbon Dioxide Anion Gap BUN Creatinine Est GFR ( Amer) Est GFR (Non-Af Amer) POC Glucose (mg/dL) 467 H* Random Glucose Calcium Total Bilirubin AST ALT Alkaline Phosphatase Total Protein Albumin Globulin Albumin/Globulin Ratio Blood Type Antibody Screen Antibody Identification 11/08/17 11/08/17 11/09/17 21:47 21:57 03:59 WBC RBC Hgb Hct MCV MCH MCHC RDW Plt Count MPV Neut % (Auto) Lymph % (Auto) [place] % (Auto) Eos % (Auto) Baso % (Auto) Neut # Lymph # [place] # Eos # Baso # Neutrophils % (Manual) Band Neutrophils % Lymphocytes % (Manual) Monocytes % (Manual) Platelet Estimate Polychromasia Anisocytosis (manual) Macrocytosis (manual) Ovalocytes PT INR APTT Sodium 128 L Potassium 4.5 Chloride 98 Carbon Dioxide 21 L Anion Gap 14 BUN 4 L Creatinine 0.5 L Est GFR ( Amer) > 60 Est GFR (Non-Af Amer) > 60 POC Glucose (mg/dL) 291 H Random Glucose 478 H* Calcium 8.3 L Total Bilirubin 5.0 H AST 63 H D ALT 32 Alkaline Phosphatase 151 H Total Protein 6.2 L Albumin 3.0 L Globulin 3.2 Albumin/Globulin Ratio 0.9 L Blood Type O POSITIVE Antibody Screen Positive Antibody Identification Anti E 11/09/17 11/09/17 11/09/17 06:30 07:26 11:56 WBC 8.2 D RBC 3.74 L Hgb 12.3 Hct 35.4 MCV 94.7 MCH 33.0 H MCHC 34.8 RDW 15.5 H Plt Count 49 L D MPV 8.3 Neut % (Auto) 89.4 H Lymph % (Auto) 4.1 L [place] % (Auto) 6.0 Eos % (Auto) 0.1 Baso % (Auto) 0.4 Neut # 7.4 H Lymph # 0.3 L [place] # 0.5 Eos # 0.0 Baso # 0.0 Neutrophils % (Manual) 94 H Band Neutrophils % 1 Lymphocytes % (Manual) 1 L Monocytes % (Manual) 4 Platelet Estimate Decreased L Polychromasia Slight Anisocytosis (manual) Slight Macrocytosis (manual) Slight Ovalocytes Slight PT INR APTT Sodium Potassium Chloride Carbon Dioxide Anion Gap BUN Creatinine Est GFR ( Amer) Est GFR (Non-Af Amer) POC Glucose (mg/dL) 290 H 335 H Random Glucose Calcium Total Bilirubin AST ALT Alkaline Phosphatase Total Protein Albumin Globulin Albumin/Globulin Ratio Blood Type Antibody Screen Antibody Identification
[2017-11-09] MEDS: (Lantus) Insulin Glargine, Recombinant SC SCH (22:16)
[2017-11-10 08:05] LABS: BASO % 0.3 % (0.0-2.0); EOS # 0.1 K/uL (0.0-0.7); EOS % 1.6 % (0.0-4.0); HEMOGLOBIN 11.6 g/dL (11.0-16.0); LYMPH # 0.6 K/uL (1.0-4.3); LYMPH % 9.2 % (20.0-40.0); MEAN CORPUSCULAR HEMOGLOBIN 32.7 pg (27.0-31.0); MEAN CORPUSCULAR HGB CONC 35.1 g/dL (33.0-37.0); MEAN PLATELET VOLUME 8.1 fL (7.2-11.7); MONO # 0.4 K/uL (0.0-0.8); NEUT # 5.8 K/uL (1.8-7.0); NEUT % 82.9 % (50.0-75.0); NRBC % 0.2 % (0.0-2.0); PLATELET COUNT 44 K/uL (130-400); RBC 3.54 Mil/uL (3.80-5.20); RED CELL DISTRIBUTION WIDTH 15.5 % (11.5-14.5)
[2017-11-10 08:07] LABS: INR 1.6; PROTHROMBIN TIME 18.6 SECONDS (9.7-12.2)
[2017-11-10 08:30] LABS: ALB/GLOB RATIO 0.9 (1.0-2.1); ALBUMIN 2.8 g/dL (3.5-5.0); ALT/SGPT 27 U/L (9-52); AST/SGOT 44 U/L (14-36); BLOOD UREA NITROGEN 14 mg/dL (7-17); CALCIUM 8.7 mg/dl (8.6-10.4); GFR AFRICAN-AMERICAN > 60; GFR NON-AFRICAN AMERICAN > 60
[2017-11-10] MEDS: (Lantus) Insulin Glargine, Recombinant SC SCH (10:00)
[2017-11-10] MEDS: (Novolog) Insulin Aspart, Recombinant 100 u/ml 10 ml vial SC SCH ×4 (10:01→23:08)
[2017-11-10] MEDS: Pantoprazole 40 mg EC Tab PO SCH (10:12)
--- NOTE | 2017-11-10 10:54 | CP.PCM.CON ---
History of Present Illness - History of Present Illness History of Present Illness: Patient is a 72 year old female with a history of HTn who presents with hip fracture. The patient states she was at home when she attempted to open a door. She lost her balance and fell. She sustained a hip fracture. The patient denies chest pain or dyspnea. Blood pressure is controlled. Review of Systems - Constitutional Constitutional: absent: As Per HPI, Anorexia, Chills, Daytime Sleepiness, Excessive Sweating, Fatigue, Fever, Frequent Falls, Headache, Increased Appetite , Lethargy, Malaise, Night Sweats, Snoring, Sleep Apnea, Weight Gain, Weight Loss, Weakness, Other - EENT Eyes: absent: As Per HPI, Blind Spots, Blurred Vision, Change in Vision, Decreased Night Vision, Diplopia, Discharge, Dry Eye, Exophthalmos, Floaters, Irritation, Itchy Eyes, Loss of Peripheral Vision, Pain, Photophobia, Requires Corrective Lenses, Sees Flashes, Spots in Vision, Tunnel Vision, Other Visual Disturbances, Loss of Vision, Other Ears: absent: As Per HPI, Decreased Hearing, Ear Discharge, Ear Pain, Tinnitus, Abnormal Hearing, Disequilibrium, Dizziness, Other Nose/Mouth/Throat: absent: As Per HPI, Epistaxis, Nasal Congestion, Nasal Discharge, Nasal Obstruction, Nasal Trauma, Nose Pain, Post Nasal Drip, Sinus Pain, Sinus Pressure, Bleeding Gums, Change in Voice, Dental Pain, Dry Mouth, Dysphagia, Halitosis, Hoarsness, Lip Swelling, Mouth Lesions, Mouth Pain, Odynophagia, Sore Throat, Throat Swelling, Tongue Swelling, Facial Pain, Neck Pain, Neck Mass, Other - Cardiovascular Cardiovascular: absent: As Per HPI, Acrocyanosis, Chest Pain, Chest Pain at Rest , Chest Pain with Activity, Claudication, Diaphoresis, Dyspnea, Dyspnea on Exertion, Edema, Irregular Heart Rhythm, Pain Radiating to Arm/Neck/Jaw, Leg Edema, Leg Ulcers, Lightheadedness, Orthopnea, Palpitations, Paroxysmal Nocturnal Dyspnea, Pedal Edema, Radiating Pain, Rapid Heart Rate, Slow Heart Rate, Syncope, Other - Respiratory Respiratory: absent: As Per HPI, Cough, Dyspnea, Hemoptysis, Dyspnea on Exertion , Wheezing, Snoring, Stridor, Pain on Inspiration, Chest Congestion, Excessive Mucous Production, Change in Mucous Color, Pain with Coughing, Other - Gastrointestinal Gastrointestinal: absent: As Per HPI, Abdominal Pain, Belching, Bloating, Change in Bowel Habits, Change in Stool Character, Coffee Ground Emesis, Constipation, Cramping, Diarrhea, Dyspepsia, Dysphagia, Early Satiety, Excessive Flatus, Fecal Incontinence, Heartburn, Hematemesis, Hematochezia, Loose Stools, Melena, Nausea, Odynophagia, Temesmus, Vomiting, Other - Genitourinary Genitourinary: absent: As Per HPI, Change in Urinary Stream, Difficulty Urinating, Dysuria, Flank Pain, Hematuria, Pyuria, Nocturia, Urinary Incontinence, Urinary Frequency, Urinary Hesitance, Urinary Urgency, Voiding Freq/Small Amts, Freq UTI, Hx Renal/Bladder Calculi, Hx /Renal Surgery, Bladder Distension, Other - Menstruation Menstruation: absent: As Per HPI, Amenorrhea, Amenorrhea/ Control, Currently Menstual, Cycle <21 Days, Cycle >35 Days, Cycle Variable, Menses 1-7 Days, Menses >/= 8 Days, Menses Variable, Cycle > 4 Weeks Between, No Menses for 6 Months, Heavy Menses, Light Menses, Normal Menses, Spotting Between Cycles , S/P Hysterectomy, Menopausal, Post Menopausal, Premenarche, Abnormal Vaginal Bleeding, Dysmenorrhea, Other - Musculoskeletal Musculoskeletal: Radiating Pain into Limb - Integumentary Integumentary: absent: As Per HPI, Acne, Alopecia, Bleeding Lesions, Change in Hair, Change in Nails, Change in Pigmentation, Changing Lesions, Dry Skin, Erythema, Furuncle, Hirsutism, Lesions, New Lesions, Non-Healing Lesions, Photosensitivity, Pruritus, Rash, Skin Pain, Skin Ulcer, Sores, Striae, Swelling , Unusual Bruising, Wounds, Jaundice, Other - Neurological Neurological: absent: As Per HPI, Abnormal Gait, Abnormal Hearing, Abnormal Movements, Abnormal Speech, Behavioral Changes, Burning Sensations, Confusion, Convulsions, Disequilibrium, Dizziness, Numbness, Focal Weakness, Frequent Falls , Headaches, Lack of Coordination, Loss of Vision, Memory Loss, Paresthesias, Radicular Pain, Restless Legs, Sensory Deficit, Syncope, Tingling, Tremor, Vertigo, Weakness, Other Visual Disturbances, Other - Psychiatric Psychiatric: absent: As Per HPI, Abnormal Sleep Pattern, Anhedonia, Anxiety, Auditory Hallucinations, Behavioral Changes, Change in Appetite, Change in Libido, Confusion, Depression, Difficulty Concentrating, Hallucinations, Homicidal Ideation, Hopelessness, Irritability, Memory Loss, Mood Swings, Panic Attacks, Paranoia, Suicidal Ideation, Visual Hallucinations, Tactile Hallucinations, Other - Endocrine Endocrine: absent: As Per HPI, Change in Body Appearance, Change in Libido, Cold Intolorance, Deepening of Voice, Excessive Sweating, Fatigue, Flushing, Heat Intolorance, Increase in Ring/Shoe/Hat Size, Palpitations, Polydipsia, Polyphagia, Polyuria, Other - Hematologic/Lymphatic Hematologic: absent: As Per HPI, Easy Bleeding, Easy Bruising, Lymphadenopathy, Other Past Patient History - Infectious Disease Hx of Infectious Diseases: None - Past Medical History & Family History Past Medical History?: Yes - Past Social History Smoking Status: Former Smoker - CARDIAC Hx Hypertension: Yes - PULMONARY Hx Asthma: Yes Hx Bronchitis: Yes - NEUROLOGICAL Other/Comment: SEVERE NEUROPATHY, hepatic encephalopathy. subdural hematoma - HEENT Hx HEENT Problems: Yes Other/Comment: Dimished vision bilateral - RENAL Hx Chronic Kidney Disease: No - ENDOCRINE/METABOLIC Hx Endocrine Disorders: Yes Hx Diabetes Mellitus Type 1: Yes Hx Diabetes Mellitus Type 2: Yes - HEMATOLOGICAL/ONCOLOGICAL Hx Anemia: Yes - INTEGUMENTARY Hx Psoriasis: Yes - MUSCULOSKELETAL/RHEUMATOLOGICAL Hx Falls: Yes - GASTROINTESTINAL Hx Diverticulitis: Yes Hx Gall Bladder Disease: Yes Hx Gastritis: Yes - GENITOURINARY/GYNECOLOGICAL Hx Genitourinary Disorders: No - PSYCHIATRIC Hx Substance Use: No - SURGICAL HISTORY Hx Appendectomy: Yes Hx Cholecystectomy: Yes - ANESTHESIA Hx Anesthesia: Yes Hx Anesthesia Reactions: No Hx Malignant Hyperthermia: No Meds Allergies/Adverse Reactions: Allergies Allergy/AdvReac Type Severity Reaction Status Date / Time acetaminophen [From Percocet] Allergy RASH Verified 11/08/17 20:36 aspirin Allergy RASH Verified 11/08/17 20:36 oxycodone HCl [From Percocet] Allergy RASH Verified 11/08/17 20:36 Penicillins Allergy RASH Verified 11/08/17 20:36 PAIN MEDICATIONS Allergy Uncoded 11/08/17 20:36 - Medications Medications: Current Medications Bumetanide (Bumex) 1 mg PO DAILY [facility] Last Admin: 11/10/17 09:50 Dose: 1 mg Diphenhydramine HCl (Benadryl) 25 mg IVP Q6 PRN PRN Reason: Itching / Pruritus Last Admin: 11/09/17 13:10 Dose: 25 mg Duloxetine HCl (Cymbalta) 30 mg PO DAILY [facility] Last Admin: 11/10/17 09:51 Dose: 30 mg Enoxaparin Sodium (Lovenox) 40 mg SC DAILY [facility] Ferrous Sulfate (Feosol) 325 mg PO DAILY [facility] Last Admin: 11/10/17 10:03 Dose: 325 mg Gabapentin (Neurontin) 300 mg PO BID [facility] Last Admin: 11/10/17 10:03 Dose: 300 mg Hydromorphone HCl (Dilaudid) 1 mg IVP Q6 PRN PRN Reason: Pain, severe (8-10) Last Admin: 11/10/17 06:56 Dose: 1 mg Insulin Aspart (Novolog) 0 unit SC ACHS [facility] PRN Reason: Protocol Last Admin: 11/10/17 10:01 Dose: 3 unit Insulin Glargine (Lantus) 10 unit SC DAILY [facility] Last Admin: 11/10/17 10:00 Dose: 10 units Pantoprazole Sodium (Protonix Ec Tab) 40 mg PO DAILY [facility] Last Admin: 11/10/17 10:12 Dose: 40 mg Propranolol HCl (Inderal) 10 mg PO BID [facility] Last Admin: 11/10/17 09:51 Dose: 10 mg Temazepam (Restoril) 15 mg PO HS [facility] Last Admin: 11/09/17 22:35 Dose: 15 mg Physical Exam - Constitutional Appears: Non-toxic - Head Exam Head Exam: NORMAL INSPECTION - Eye Exam Eye Exam: Normal appearance - ENT Exam ENT Exam: Mucous Membranes Moist - Neck Exam Neck exam: Positive for: Full Rom - Respiratory Exam Respiratory Exam: Decreased Breath Sounds - Cardiovascular Exam Cardiovascular Exam: REGULAR RHYTHM - GI/Abdominal Exam GI & Abdominal Exam: Normal Bowel Sounds - Rectal Exam Rectal Exam: Deferred - Extremities Exam Extremities exam: Negative for: pedal edema - Back Exam Back exam: NORMAL INSPECTION - Neurological Exam Neurological exam: Alert - Psychiatric Exam Psychiatric exam: Normal Affect - Skin Skin Exam: Normal Color Results - Vital Signs Recent Vital Signs: Last Vital Signs Temp 98.0 F 11/10/17 08:57 Pulse 98 H 11/10/17 08:57 Resp 20 11/10/17 08:57 BP 159/73 H 11/10/17 08:57 Pulse Ox 95 11/10/17 08:57 - Labs Result Diagrams: 11/10/17 07:49 11/10/17 07:49 Labs: Laboratory Results - last 24 hr 11/09/17 11/09/17 11/09/17 11:56 16:34 21:46 WBC RBC Hgb Hct MCV MCH MCHC RDW Plt Count MPV Neut % (Auto) Lymph % (Auto) [place] % (Auto) Eos % (Auto) Baso % (Auto) Neut # Lymph # [place] # Eos # Baso # PT INR APTT Sodium Potassium Chloride Carbon Dioxide Anion Gap BUN Creatinine Est GFR ( Amer) Est GFR (Non-Af Amer) POC Glucose (mg/dL) 335 H 344 H 346 H Random Glucose Calcium Total Bilirubin AST ALT Alkaline Phosphatase Total Protein Albumin Globulin Albumin/Globulin Ratio Blood Type Antibody Screen 11/10/17 11/10/17 11/10/17 02:23 06:14 07:49 WBC 7.0 RBC 3.54 L Hgb 11.6 Hct 32.9 L MCV 93.0 MCH 32.7 H MCHC 35.1 RDW 15.5 H Plt Count 44 L MPV 8.1 Neut % (Auto) 82.9 H Lymph % (Auto) 9.2 L [place] % (Auto) 6.0 Eos % (Auto) 1.6 Baso % (Auto) 0.3 Neut # 5.8 Lymph # 0.6 L [place] # 0.4 Eos # 0.1 Baso # 0.0 PT INR APTT Sodium Potassium Chloride Carbon Dioxide Anion Gap BUN Creatinine Est GFR ( Amer) Est GFR (Non-Af Amer) POC Glucose (mg/dL) 285 H 284 H Random Glucose Calcium Total Bilirubin AST ALT Alkaline Phosphatase Total Protein Albumin Globulin Albumin/Globulin Ratio Blood Type Antibody Screen 11/10/17 11/10/17 11/10/17 07:49 07:49 07:49 WBC RBC Hgb Hct MCV MCH MCHC RDW Plt Count MPV Neut % (Auto) Lymph % (Auto) [place] % (Auto) Eos % (Auto) Baso % (Auto) Neut # Lymph # [place] # Eos # Baso # PT 18.6 H INR 1.6 APTT 44 H D Sodium 129 L Potassium 5.7 H Chloride 99 Carbon Dioxide 29 Anion Gap 7 L BUN 14 Creatinine 0.8 Est GFR ( Amer) > 60 Est GFR (Non-Af Amer) > 60 POC Glucose (mg/dL) Random Glucose 346 H Calcium 8.7 Total Bilirubin 7.3 H AST 44 H D ALT 27 Alkaline Phosphatase 109 Total Protein 6.0 L Albumin 2.8 L Globulin 3.2 Albumin/Globulin Ratio 0.9 L Blood Type O POSITIVE Antibody Screen Positive - EKG Data EKG Interpreted by: Myself EKG shows normal: Sinus rhythm Assessment & Plan (1) Closed traumatic dislocation of hip Assessment and Plan: patient has normal left ventriculr function by echocardiogram. There is calcifiction of the aortic valve, but no aortic valve stenosis. I recommend medical therapy and blood pressure control. There is no cardiovascular contraindication to the planned surgery. Given history of liver disease recommend ammonia level. Status: Acute (2) HTN (hypertension) Assessment and Plan: blood pressure control Status: Acute (3) Hepatic encephalopathy Assessment and Plan: check ammonia level. Status: Acute
[2017-11-10 11:14] LABS: ANISOCYTOSIS SLIGHT; BANDS 1 % (0-2); EOSINOPHIL 2 % (0-4); LYMPHOCYTE 8 % (20-40); MONOCYTE 8 % (0-10); NEUTROPHIL 81 % (50-75); PLATELET ESTIMATE DECREASED (NORMAL); POIKILOCYTOSIS SLIGHT; TOTAL CELLS COUNTED 100
[2017-11-10 11:15] LABS: BURR CELLS SLIGHT; HYPOCHROMIC SLIGHT; OVALOCYTES SLIGHT; POLYCHROMIC SLIGHT
[2017-11-10] MEDS ORDERED: Sod Polystyrene Sulf 15 gm/60 ml Susp PO ONE (12:53)
[2017-11-10] MEDS: DiphenhydrAMINE 50 mg/ml Inj IVP PRN (14:57)
--- NOTE | 2017-11-10 18:38 | CP.PCM.PN ---
Subjective - Date & Time of Evaluation Date of Evaluation: 11/10/17 Time of Evaluation: 12:15 Objective - Vital Signs/Intake and Output Vital Signs (last 24 hours): Temp Pulse Resp BP Pulse Ox 98.0 F 98 H 20 159/73 H 95 11/10/17 08:57 11/10/17 08:57 11/10/17 08:57 11/10/17 08:57 11/10/17 08:57 Intake and Output: 11/10/17 11/10/17 06:59 18:59 Intake Total 300 Output Total 800 Balance -500 - Medications Medications: Current Medications Bumetanide (Bumex) 1 mg PO DAILY [facility] Last Admin: 11/10/17 09:50 Dose: 1 mg Diphenhydramine HCl (Benadryl) 25 mg IVP Q6 PRN PRN Reason: Itching / Pruritus Last Admin: 11/10/17 14:57 Dose: 25 mg Duloxetine HCl (Cymbalta) 30 mg PO DAILY [facility] Last Admin: 11/10/17 09:51 Dose: 30 mg Enoxaparin Sodium (Lovenox) 40 mg SC DAILY [facility] Ferrous Sulfate (Feosol) 325 mg PO DAILY [facility] Last Admin: 11/10/17 10:03 Dose: 325 mg Gabapentin (Neurontin) 300 mg PO BID [facility] Last Admin: 11/10/17 10:03 Dose: 300 mg Hydromorphone HCl (Dilaudid) 1 mg IVP Q6 PRN PRN Reason: Pain, severe (8-10) Last Admin: 11/10/17 06:56 Dose: 1 mg Insulin Aspart (Novolog) 0 unit SC [facility] PRN Reason: Protocol Last Admin: 11/10/17 12:18 Dose: 4 unit Insulin Glargine (Lantus) 10 unit SC DAILY [facility] Last Admin: 11/10/17 10:00 Dose: 10 units Pantoprazole Sodium (Protonix Ec Tab) 40 mg PO DAILY [facility] Last Admin: 11/10/17 10:12 Dose: 40 mg Propranolol HCl (Inderal) 10 mg PO BID [facility] Last Admin: 11/10/17 09:51 Dose: 10 mg Temazepam (Restoril) 15 mg PO HS [facility] Last Admin: 11/09/17 22:35 Dose: 15 mg - Labs Labs: 11/10/17 07:49 11/10/17 07:49 PT 18.6 SECONDS (9.7-12.2) H 11/10/17 07:49 INR 1.6 11/10/17 07:49 APTT 44 SECONDS (21-34) H D 11/10/17 07:49
[2017-11-11] MEDS: DiphenhydrAMINE 50 mg/ml Inj IVP PRN (05:55)
[2017-11-11] MEDS: (Novolog) Insulin Aspart, Recombinant 100 u/ml 10 ml vial SC SCH ×4 (08:22→22:09)
[2017-11-11] MEDS: (Lantus) Insulin Glargine, Recombinant SC SCH (10:27)
[2017-11-11] MEDS: Pantoprazole 40 mg EC Tab PO SCH (10:27)
--- NOTE | 2017-11-11 15:36 | CP.PCM.PN ---
Subjective - Date & Time of Evaluation Date of Evaluation: 11/11/17 Time of Evaluation: 12:50 - Subjective Subjective: clinically same Objective - Vital Signs/Intake and Output Vital Signs (last 24 hours): Temp Pulse Resp BP Pulse Ox 98.8 F 83 20 98/51 L 97 11/11/17 08:25 11/11/17 11:22 11/11/17 08:25 11/11/17 08:25 11/11/17 08:25 Intake and Output: 11/11/17 11/11/17 06:59 18:59 Intake Total 300 Output Total 500 1000 Balance -500 -700 - Medications Medications: Current Medications Bumetanide (Bumex) 1 mg PO DAILY [facility] Last Admin: 11/11/17 10:29 Dose: 1 mg Diphenhydramine HCl (Benadryl) 25 mg IVP Q6 PRN PRN Reason: Itching / Pruritus Last Admin: 11/11/17 05:55 Dose: 25 mg Duloxetine HCl (Cymbalta) 30 mg PO DAILY [facility] Last Admin: 11/11/17 10:29 Dose: 30 mg Enoxaparin Sodium (Lovenox) 40 mg SC DAILY [facility] Ferrous Sulfate (Feosol) 325 mg PO DAILY [facility] Last Admin: 11/11/17 10:28 Dose: 325 mg Gabapentin (Neurontin) 300 mg PO BID [facility] Last Admin: 11/11/17 10:27 Dose: 300 mg Hydromorphone HCl (Dilaudid) 1 mg IVP Q6 PRN PRN Reason: Pain, severe (8-10) Last Admin: 11/11/17 12:01 Dose: 1 mg Insulin Aspart (Novolog) 0 unit SC [facility] PRN Reason: Protocol Last Admin: 11/11/17 12:02 Dose: 4 unit Insulin Glargine (Lantus) 10 unit SC DAILY [facility] Last Admin: 11/11/17 10:27 Dose: 10 units Pantoprazole Sodium (Protonix Ec Tab) 40 mg PO DAILY [facility] Last Admin: 11/11/17 10:27 Dose: 40 mg Propranolol HCl (Inderal) 10 mg PO BID [facility] Last Admin: 11/11/17 10:29 Dose: 10 mg Temazepam (Restoril) 15 mg PO [facility] Last Admin: 11/10/17 23:03 Dose: Not Given - Labs Labs: 11/10/17 07:49 11/10/17 07:49 PT 18.6 SECONDS (9.7-12.2) H 11/10/17 07:49 INR 1.6 11/10/17 07:49 APTT 44 SECONDS (21-34) H D 11/10/17 07:49 - Constitutional Appears: Well - Head Exam Head Exam: ATRAUMATIC, NORMAL INSPECTION, NORMOCEPHALIC - Eye Exam Eye Exam: EOMI, Normal appearance, PERRL Pupil Exam: NORMAL ACCOMODATION, PERRL - ENT Exam ENT Exam: Mucous Membranes Moist, Normal Exam - Neck Exam Neck Exam: Full ROM, Normal Inspection. absent: Lymphadenopathy - Respiratory Exam Respiratory Exam: Decreased Breath Sounds - Cardiovascular Exam Cardiovascular Exam: REGULAR RHYTHM, +S1, +S2 - GI/Abdominal Exam GI & Abdominal Exam: Soft, Diminished Bowel Sounds - Rectal Exam Rectal Exam: Deferred
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
[2017-11-11 21:18] LABS: BASO % 0.6 % (0.0-2.0); EOS # 0.1 K/uL (0.0-0.7); EOS % 3.1 % (0.0-4.0); HEMOGLOBIN 11.1 g/dL (11.0-16.0); LYMPH # 0.5 K/uL (1.0-4.3); LYMPH % 13.4 % (20.0-40.0); MEAN CELL VOLUME 92.8 fL (81.0-99.0); MEAN CORPUSCULAR HEMOGLOBIN 32.8 pg (27.0-31.0); MEAN CORPUSCULAR HGB CONC 35.3 g/dL (33.0-37.0); MEAN PLATELET VOLUME 8.4 fL (7.2-11.7); MONO # 0.2 K/uL (0.0-0.8); MONO % 5.4 % (0.0-10.0); NEUT # 3.1 K/uL (1.8-7.0); NEUT % 77.5 % (50.0-75.0); NRBC % 0.1 % (0.0-2.0); RBC 3.39 Mil/uL (3.80-5.20); RED CELL DISTRIBUTION WIDTH 15.5 % (11.5-14.5); WHITE BLOOD COUNT 3.9 K/uL (4.8-10.8)
[2017-11-11 21:30] LABS: INR 1.6; PROTHROMBIN TIME 18.4 SECONDS (9.7-12.2)
[2017-11-11 21:33] LABS: ALB/GLOB RATIO 0.9 (1.0-2.1); ALBUMIN 2.7 g/dL (3.5-5.0); ALT/SGPT 31 U/L (9-52); AST/SGOT 32 U/L (14-36); BLOOD UREA NITROGEN 19 mg/dL (7-17); CALCIUM 8.8 mg/dl (8.6-10.4); GFR AFRICAN-AMERICAN > 60; GFR NON-AFRICAN AMERICAN > 60
[2017-11-11 23:22] LABS: SQUAMOUS EPITHIAL 1 /hpf (0-5); URINE BACTERIA RARE (<OCC); URINE BILIRUBIN NEGATIVE (NEGATIVE); URINE CLARITY Clear (Clear); URINE COLOR Yellow (YELLOW); URINE GLUCOSE (UA) NORMAL (Normal); URINE HYALINE CAST >20 /lpf (0-2); URINE LEUKOCYTE ESTERASE NEG Leu/uL (Negative); URINE NITRATE NEGATIVE (NEGATIVE)
[2017-11-11 23:25] LABS: URINE BLOOD NEGATIVE (NEGATIVE); URINE PROTEIN 1+ mg/dL (NEGATIVE)
[2017-11-12] MEDS ORDERED: Potassium Chloride 20 mEq ER Tab PO ONE ×2 (07:28→09:24)
[2017-11-12 07:58] LABS: HEMOGLOBIN 10.3 g/dL (11.0-16.0); MEAN CELL VOLUME 92.1 fL (81.0-99.0); MEAN CORPUSCULAR HGB CONC 35.8 g/dL (33.0-37.0); MEAN PLATELET VOLUME 8.1 fL (7.2-11.7); RBC 3.11 Mil/uL (3.80-5.20); RED CELL DISTRIBUTION WIDTH 15.2 % (11.5-14.5); WHITE BLOOD COUNT 2.6 K/uL (4.8-10.8)
[2017-11-12] MEDS: (Novolog) Insulin Aspart, Recombinant 100 u/ml 10 ml vial SC SCH ×5 (08:13→21:21)
[2017-11-12] MEDS: Vitamins A & D Oint UD Foilpak TOP SCH ×4 (08:14→21:22)
[2017-11-12 08:24] LABS: ALBUMIN 2.4 g/dL (3.5-5.0); ALT/SGPT 29 U/L (9-52); AST/SGOT 28 U/L (14-36); BLOOD UREA NITROGEN 19 mg/dL (7-17); CALCIUM 8.3 mg/dl (8.6-10.4); GFR AFRICAN-AMERICAN > 60; GFR NON-AFRICAN AMERICAN > 60
[2017-11-12 08:25] LABS: ALB/GLOB RATIO 0.8 (1.0-2.1)
--- NOTE | 2017-11-12 08:50 | RAD ---
PROCEDURE: HISTORY: preop for hip ORIF COMPARISON: CT without con 11/09/2017 and pelvis with hip 11/08/2017 TECHNIQUE: Five views FINDINGS: Right comminuted intertrochanteric acute fracture with displaced lesser trochanteric fracture fragment as noted previously. Intrinsic right joint hypertrophic arthrosis. Tricompartmental hypertrophic right knee arthrosis. The CT referenced nondisplaced right inferior pubic ring fracture deformity is not appreciated on this exam -please refer to the CT for its more sensitive evaluation . Its chronicity is unknown IMPRESSION: Acute comminuted and displaced right intertrochanteric fracture. Lesser trochanteric fracture fragment displaced medially approximately 5- [address] referenced nondisplaced right inferior pubic ring fracture not appreciated on this radiograph. Right hip and right knee intrinsic osteoarthrosis
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
--- NOTE | 2017-11-12 10:10 | CP.PCM.PN ---
Subjective - Date & Time of Evaluation Date of Evaluation: 11/12/17 Time of Evaluation: 10:10 - Subjective Subjective: PGY2 medicine progress note for Dr. Coronado's service: Patient seen and examined. Patient states she is having leg pain but states medication is helping. Patient states she has poor appetite and complains of dry mouth. Objective - Vital Signs/Intake and Output Vital Signs (last 24 hours): Temp Pulse Resp BP Pulse Ox 98.4 F 76 20 130/70 99 11/11/17 23:15 11/11/17 23:15 11/11/17 23:15 11/11/17 23:15 11/11/17 23:15 Intake and Output: 11/12/17 11/12/17 06:59 18:59 Intake Total 100 Output Total 900 Balance -800 - Medications Medications: Current Medications Bumetanide (Bumex) 1 mg PO DAILY [facility] Last Admin: 11/11/17 10:29 Dose: 1 mg Diphenhydramine HCl (Benadryl) 25 mg IVP Q6 PRN PRN Reason: Itching / Pruritus Last Admin: 11/11/17 05:55 Dose: 25 mg Duloxetine HCl (Cymbalta) 30 mg PO DAILY [facility] Last Admin: 11/11/17 10:29 Dose: 30 mg Ferrous Sulfate (Feosol) 325 mg PO DAILY [facility] Last Admin: 11/11/17 10:28 Dose: 325 mg Gabapentin (Neurontin) 300 mg PO BID [facility] Last Admin: 11/11/17 17:34 Dose: 300 mg Hydromorphone HCl (Dilaudid) 1 mg IVP Q6 PRN PRN Reason: Pain, severe (8-10) Last Admin: 11/12/17 06:01 Dose: 1 mg Insulin Aspart (Novolog) 0 unit SC ACHS [facility] PRN Reason: Protocol Last Admin: 11/12/17 08:13 Dose: Not Given Insulin Glargine (Lantus) 10 unit SC DAILY [facility] Last Admin: 11/11/17 10:27 Dose: 10 units Pantoprazole Sodium (Protonix Ec Tab) 40 mg PO DAILY [facility] Last Admin: 11/11/17 10:27 Dose: 40 mg Propranolol HCl (Inderal) 10 mg PO BID [facility] Last Admin: 11/11/17 17:34 Dose: 10 mg Temazepam (Restoril) 15 mg PO HS [facility] Last Admin: 11/11/17 22:10 Dose: Not Given Vitamin A (Vitamin A & D Oint Ud Foilpak) 1 ea TOP Q4 [facility] - Labs Labs: 11/12/17 07:47 11/12/17 07:47 PT 18.4 SECONDS (9.7-12.2) H 11/11/17 21:13 INR 1.6 11/11/17 21:13 APTT 41 SECONDS (21-34) H 11/11/17 21:13 - Constitutional Appears: No Acute Distress - Head Exam Head Exam: ATRAUMATIC, NORMOCEPHALIC - Eye Exam Eye Exam: EOMI - ENT Exam ENT Exam: Mucous Membranes Dry - Respiratory Exam Respiratory Exam: Clear to Ausculation Bilateral - Cardiovascular Exam Cardiovascular Exam: +S1, +S2 - GI/Abdominal Exam GI & Abdominal Exam: Soft, Normal Bowel Sounds. absent: Tenderness - Exam Additional comments: you catheter - Extremities Exam Extremities Exam: absent: Pedal Edema Additional comments: RLE shortened and ext rotated as compared to left - Neurological Exam Neurological Exam: Alert, Awake - Skin Skin Exam: Warm Assessment and Plan - Assessment and Plan (Free Text) Assessment: Closed displaced intertrochanteric fracture of right femur Dr. Flynn, orthopedic surgery on the case Closed reduction versus open reduction and internal fixation with long intramedullary hip nail planned for 11/13/17 pre-op MRI ordered R hip and pelvis CT, 11/09/17:+ displaced intratrochanteric R hip fracture with extension just beyond the level of the lesser trochanter, + nondisplaced right- sided inferior pubic ramus fracture dilaudid 1mg IVP q6prn pain control Dr. Napier consulted for pre-operative cardiac risk evaluation: recommend blood pressure control, no cardiac contraindication to surgery Anemia Hgb 10.3 type and screen ordered in preparation for OR continue feosol 325mg PO daily Pancytopenia likely secondary to liver disease patient to be transfused platelets and FFP tonight and tomorrow, 11/13/17 prior to OR for femur fracture repair Dr. Brewster, Heme-onc, consulted- help appreciated (Dr. Kellogggal covering) Liver Cirrhosis Hx of hepatic encephalopathy, was being seen at liver center in [place] in the past saw Dr Melany Arguello for cirrhosis and was treated with Harvoni restart home regimen lactulose 20gm PO HS, Xifaxan 550mg PO BID HTN Continue home meds Bumex 1 mg PO DAILY [facility] Inderal 10 mg PO TID [facility] Diabetes consistent carb diet Continue home meds Neurontin 300 mg PO BID [facility] Novolog 0 unit SC ACHS [facility] Lantus 10 unit SC DAILY [facility] Anxiety restoril 15mg PO HS cymbalta 30mg PO daily Prophylaxis protonix 40mg po daily Chemical anticoagulation held due to pancytopenia and OR tomorrow A&D ointment to dry lips All Medical management as per Dr. Coronado
[2017-11-12] MEDS: (Lantus) Insulin Glargine, Recombinant SC SCH (10:49)
[2017-11-12] MEDS: Pantoprazole 40 mg EC Tab PO SCH (10:50)
--- NOTE | 2017-11-12 10:58 | CP.PCM.PN ---
Subjective - Date & Time of Evaluation Date of Evaluation: 11/12/17 Time of Evaluation: 11:40 - Subjective Subjective: clinically same Objective - Vital Signs/Intake and Output Vital Signs (last 24 hours): Temp Pulse Resp BP Pulse Ox 98.4 F 76 20 130/70 99 11/11/17 23:15 11/11/17 23:15 11/11/17 23:15 11/11/17 23:15 11/11/17 23:15 Intake and Output: 11/12/17 11/12/17 06:59 18:59 Intake Total 100 Output Total 900 Balance -800 - Medications Medications: Current Medications Bumetanide (Bumex) 1 mg PO DAILY [facility] Last Admin: 11/11/17 10:29 Dose: 1 mg Diphenhydramine HCl (Benadryl) 25 mg IVP Q6 PRN PRN Reason: Itching / Pruritus Last Admin: 11/11/17 05:55 Dose: 25 mg Duloxetine HCl (Cymbalta) 30 mg PO DAILY [facility] Last Admin: 11/11/17 10:29 Dose: 30 mg Ferrous Sulfate (Feosol) 325 mg PO DAILY [facility] Last Admin: 11/12/17 10:50 Dose: 325 mg Gabapentin (Neurontin) 300 mg PO BID [facility] Last Admin: 11/12/17 10:50 Dose: 300 mg Hydromorphone HCl (Dilaudid) 1 mg IVP Q6 PRN PRN Reason: Pain, severe (8-10) Last Admin: 11/12/17 06:01 Dose: 1 mg Insulin Aspart (Novolog) 0 unit SC [facility] PRN Reason: Protocol Last Admin: 11/12/17 08:13 Dose: Not Given Insulin Glargine (Lantus) 10 unit SC DAILY [facility] Last Admin: 11/12/17 10:49 Dose: 10 units Pantoprazole Sodium (Protonix Ec Tab) 40 mg PO DAILY [facility] Last Admin: 11/12/17 10:50 Dose: 40 mg Propranolol HCl (Inderal) 10 mg PO BID [facility] Last Admin: 11/11/17 17:34 Dose: 10 mg Temazepam (Restoril) 15 mg PO HS [facility] Last Admin: 11/11/17 22:10 Dose: Not Given Vitamin A (Vitamin A & D Oint Ud Foilpak) 1 ea TOP Q4 [facility] - Labs Labs: 11/12/17 07:47 11/12/17 07:47 PT 18.4 SECONDS (9.7-12.2) H 11/11/17 21:13 INR 1.6 11/11/17 21:13 APTT 41 SECONDS (21-34) H 11/11/17 21:13 - Constitutional Appears: Well - Head Exam Head Exam: ATRAUMATIC, NORMAL INSPECTION, NORMOCEPHALIC - Eye Exam Eye Exam: EOMI, Normal appearance, PERRL Pupil Exam: NORMAL ACCOMODATION, PERRL - ENT Exam ENT Exam: Mucous Membranes Moist, Normal Exam - Neck Exam Neck Exam: Full ROM, Normal Inspection. absent: Lymphadenopathy - Respiratory Exam Respiratory Exam: Decreased Breath Sounds - Cardiovascular Exam Cardiovascular Exam: REGULAR RHYTHM, +S1, +S2 - GI/Abdominal Exam GI & Abdominal Exam: Soft, Diminished Bowel Sounds - Rectal Exam Rectal Exam: Deferred
--- NOTE | 2017-11-12 12:39 | CARD ---
APPROVED REPORT EKG Measurement Heart [id number] ID [id number] <Conclusion> Sinus tachycardia Otherwise normal ECG
--- NOTE | 2017-11-12 14:15 | CARD ---
APPROVED REPORT EXAM: Two-dimensional and M-mode echocardiogram with Doppler and color Doppler. Other Information Quality : GoodRhythm : INDICATION Pre-Op 2D DIMENSIONS IVSd1.1 (0.7-1.1cm)LVDd3.3 (3.9-5.9cm) LVOT Diameter1.9 (1.8-2.4cm)PWd0.8 (0.7-1.1cm) LVDs2.3 (2.5-4.0cm)FS (%) 30.4 % LVEF (%)59.1 (>50%) M-Mode DIMENSIONS Left Atrium (MM)3.53 (2.5-4.0cm)Aortic Root2.85 (2.2-3.7cm) Aortic Cusp Exc.2.20 (1.5-2.0cm) Aortic Valve AoV Peak Fzukmdmu105.1cm/sAoV VTI42.6cmAO Peak GR.37mmHg LVOT Peak Huxppllx118.9cm/sLVOT VTI30.21cmAO Mean GR.20mmHg JAIDEN (VMAX)1.05hc9AZH (VTI)1.98cm2 Mitral Valve MV E Ysfjvldz78.6cm/sMV A Shzfeauu792.2cm/s Tricuspid Valve TR Peak Tznpxyaz244cz/sTR Peak Gr.84qlObBKIL16gvPp LEFT VENTRICLE The left ventricle is normal size. There is normal left ventricular wall thickness. The left ventricular function is normal. The left ventricular ejection fraction is within the normal range. No regional wall motion abnormalities noted. Transmitral Doppler flow pattern is Grade I-abnormal relaxation pattern.LV filling pressure is probably increased No left ventricle thrombus noted on this study. There is no ventricular septal defect visualized. There is no left ventricular aneurysm. There is no mass noted in the left ventricle. RIGHT VENTRICLE The right ventricle is normal size. There is normal right ventricular wall thickness. The right ventricular systolic function is normal. ATRIA The left atrium size is normal.LA volume is mildly increased The right atrium size is normal. The interatrial septum is intact with no evidence for an atrial septal defect. AORTIC VALVE The aortic valve is moderately thickened. No aortic regurgitation is present. There is no aortic valvular stenosis. valve area is 2.0 sq. cm . High AoV jet velocity is probably sec. to tachycardia There is no aortic valvular vegetation. MITRAL VALVE The mitral valve is normal in structure and function. Mitral annular calcification is mild to moderate. There is no evidence of mitral valve prolapse. There is no mitral valve stenosis. There is no mitral valve regurgitation noted. TRICUSPID VALVE The tricuspid valve is normal in structure and function. There is moderate tricuspid regurgitation. Right ventricular systolic pressure is estimated at greater than 60 mmHg. There is no tricuspid valve prolapse or vegetation. There is no tricuspid valve stenosis. PULMONIC VALVE The pulmonary valve is normal in structure and function. There is no pulmonic valvular regurgitation. There is no pulmonic valvular stenosis. GREAT VESSELS The aortic root is normal in size. The ascending aorta is normal in size. The pulmonary artery is normal. The IVC is normal in size and collapses >50% with inspiration. PERICARDIAL EFFUSION The pericardium appears normal. There is no pleural effusion. <Conclusion> The left ventricular function is normal. The left ventricular ejection fraction is within the normal range. No regional wall motion abnormalities noted. The left atrium size is normal.LA volume is mildly increased There is no aortic valvular stenosis. valve area is 2.0 sq. cm . High AoV jet velocity is probably sec. to tachycardia There is moderate tricuspid regurgitation. Right ventricular systolic pressure is estimated at greater than 60 mmHg. .LV filling pressure is probably increased
--- NOTE | 2017-11-12 14:24 | CARD ---
APPROVED REPORT EKG Measurement Heart [id number] <Conclusion> Normal sinus rhythm Normal ECG
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
[2017-11-12] MEDS ORDERED: Phytonadione 10 mg/ml Inj (Adult) SC ONE (17:45)
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
[2017-11-13] MEDS: Vitamins A & D Oint UD Foilpak TOP SCH ×6 (00:03→21:06)
[2017-11-13 02:27] LABS: BASO % 0.6 % (0.0-2.0); EOS # 0.1 K/uL (0.0-0.7); EOS % 2.4 % (0.0-4.0); HEMOGLOBIN 9.6 g/dL (11.0-16.0); LYMPH # 0.2 K/uL (1.0-4.3); MEAN CORPUSCULAR HEMOGLOBIN 32.8 pg (27.0-31.0); MEAN CORPUSCULAR HGB CONC 34.8 g/dL (33.0-37.0); MEAN PLATELET VOLUME 8.3 fL (7.2-11.7); MONO # 0.2 K/uL (0.0-0.8); MONO % 8.5 % (0.0-10.0); NEUT # 1.6 K/uL (1.8-7.0); NEUT % 77.5 % (50.0-75.0); RBC 2.93 Mil/uL (3.80-5.20); RED CELL DISTRIBUTION WIDTH 15.2 % (11.5-14.5); WHITE BLOOD COUNT 2.1 K/uL (4.8-10.8)
[2017-11-13 02:29] LABS: INR 1.7
[2017-11-13 02:33] LABS: MEAN CELL VOLUME 94.4 fL (81.0-99.0)
[2017-11-13 02:42] LABS: ALB/GLOB RATIO 0.8 (1.0-2.1); ALBUMIN 2.4 g/dL (3.5-5.0); ALT/SGPT 29 U/L (9-52); AST/SGOT 29 U/L (14-36); BLOOD UREA NITROGEN 21 mg/dL (7-17); CALCIUM 8.3 mg/dl (8.6-10.4); GFR AFRICAN-AMERICAN > 60; GFR NON-AFRICAN AMERICAN > 60
[2017-11-13 06:54] LABS: HEMOGLOBIN 9.1 g/dL (11.0-16.0); MEAN CELL VOLUME 92.9 fL (81.0-99.0); MEAN CORPUSCULAR HEMOGLOBIN 33.1 pg (27.0-31.0); MEAN CORPUSCULAR HGB CONC 35.6 g/dL (33.0-37.0); MEAN PLATELET VOLUME 8.1 fL (7.2-11.7); RBC 2.74 Mil/uL (3.80-5.20)
[2017-11-13 07:05] LABS: INR 1.6
[2017-11-13 07:07] LABS: WHITE BLOOD COUNT 1.5 K/uL (4.8-10.8)
[2017-11-13 07:09] LABS: ALB/GLOB RATIO 0.9 (1.0-2.1); ALBUMIN 2.5 g/dL (3.5-5.0); ALT/SGPT 32 U/L (9-52); AST/SGOT 29 U/L (14-36); BLOOD UREA NITROGEN 20 mg/dL (7-17); CALCIUM 8.6 mg/dl (8.6-10.4); GFR AFRICAN-AMERICAN > 60; GFR NON-AFRICAN AMERICAN > 60
[2017-11-13] MEDS ORDERED: Phenylephrine 10 mg/ml Inj ONE (07:50)
[2017-11-13] MEDS ORDERED: Propofol 10 mg/ml Inj (20 ML) ONE (07:56)
[2017-11-13] MEDS ORDERED: Etomidate 20 mg/10ml Inj IV ONE (07:56)
[2017-11-13] MEDS: (Novolog) Insulin Aspart, Recombinant 100 u/ml 10 ml vial SC SCH ×4 (08:20→21:05)
[2017-11-13] MEDS ORDERED: Phytonadione 10 mg/ml Inj (Adult) SC STA (08:26)
[2017-11-13] MEDS ORDERED: MethylPREDNISolone 40 mg Vial IVP STA (08:26)
[2017-11-13] MEDS ORDERED: Bupivacaine HCl 0.5% PF (10 ml) Inj ONE ×2 (08:34)
[2017-11-13] MEDS ORDERED: ceFAZolin IV 1 gm in Dextrose 0 GM/0 ML BAG IVPB ONE (08:34)
--- NOTE | 2017-11-13 08:49 | CP.PCM.CON ---
History of Present Illness - History of Present Illness History of Present Illness: CC: Hip fracture, cirrhosis HPI: GI consult requested on this 72 year old cirrhotic woman with longstanding pancytopenia, cirrhosis, portal HTN, frequent rectal bleeds from combination of thrombocytopenia and hemorrhoids, presented for admission Nov 08 after sustaining a right hip fracture. Surgery has been delayed up until today due to medical instability, and as I was notified of this consult now surgery is being planned imminently. I discussed the case with the attending surgeon and Casting [employer]. Patient is followed by Dr Arguello, her outpatient Jboss Architect. Patient currently unable to provide any history, and all she can say is " will you put me to sleep?" Patient is very confused. Per discussion with her RN she is not taking the oral Lactulose, and there has been no witnessed GI bleeding. Review of Systems - Review of Systems Systems not reviewed;Unavailable: Altered Mental Status Past Patient History - Infectious Disease Hx of Infectious Diseases: None - Past Medical History & Family History Past Medical History?: Yes - Past Social History Smoking Status: Former Smoker - CARDIAC Hx Hypertension: Yes - PULMONARY Hx Asthma: Yes Hx Bronchitis: Yes - NEUROLOGICAL Other/Comment: SEVERE NEUROPATHY, hepatic encephalopathy. subdural hematoma - HEENT Hx HEENT Problems: Yes Other/Comment: Dimished vision bilateral - RENAL Hx Chronic Kidney Disease: No - ENDOCRINE/METABOLIC Hx Endocrine Disorders: Yes Hx Diabetes Mellitus Type 1: Yes Hx Diabetes Mellitus Type 2: Yes - HEMATOLOGICAL/ONCOLOGICAL Hx Anemia: Yes - INTEGUMENTARY Hx Psoriasis: Yes - MUSCULOSKELETAL/RHEUMATOLOGICAL Hx Falls: Yes - GASTROINTESTINAL Hx Diverticulitis: Yes Hx Gall Bladder Disease: Yes Hx Gastritis: Yes - GENITOURINARY/GYNECOLOGICAL Hx Genitourinary Disorders: No - PSYCHIATRIC Hx Substance Use: No - SURGICAL HISTORY Hx Appendectomy: Yes Hx Cholecystectomy: Yes - ANESTHESIA Hx Anesthesia: Yes Hx Anesthesia Reactions: No Hx Malignant Hyperthermia: No Meds Allergies/Adverse Reactions: Allergies Allergy/AdvReac Type Severity Reaction Status Date / Time acetaminophen [From Percocet] Allergy RASH Verified 11/08/17 20:36 aspirin Allergy RASH Verified 11/08/17 20:36 oxycodone HCl [From Percocet] Allergy RASH Verified 11/08/17 20:36 Penicillins Allergy RASH Verified 11/08/17 20:36 PAIN MEDICATIONS Allergy Uncoded 11/08/17 20:36 - Medications Medications: Current Medications Bumetanide (Bumex) 1 mg PO DAILY [facility] Last Admin: 11/12/17 10:59 Dose: Not Given Diphenhydramine HCl (Benadryl) 25 mg IVP Q6 PRN PRN Reason: Itching / Pruritus Last Admin: 11/11/17 05:55 Dose: 25 mg Duloxetine HCl (Cymbalta) 30 mg PO DAILY [facility] Last Admin: 11/12/17 10:59 Dose: Not Given Ferrous Sulfate (Feosol) 325 mg PO DAILY [facility] Last Admin: 11/12/17 10:50 Dose: 325 mg Gabapentin (Neurontin) 300 mg PO BID [facility] Last Admin: 11/12/17 17:32 Dose: Not Given Potassium Chloride (Potassium Chloride 10 Meq/100 Ml) 10 meq in 100 mls @ 100 mls/hr IVPB ONCE ONE Stop: 11/13/17 08:50 Last Admin: 11/13/17 08:13 Dose: 100 mls/hr Insulin Aspart (Novolog) 0 unit SC ACHS [facility] PRN Reason: Protocol Last Admin: 11/13/17 08:20 Dose: Not Given Insulin Glargine (Lantus) 10 unit SC DAILY [facility] Last Admin: 11/12/17 10:49 Dose: 10 units Lactulose (Enulose) 20 gm PO HS [facility] Last Admin: 11/12/17 21:21 Dose: Not Given Pantoprazole Sodium (Protonix Inj) 40 mg IVP Q12H [facility] Last Admin: 11/13/17 08:34 Dose: 40 mg Propranolol HCl (Inderal) 10 mg PO BID [facility] Last Admin: 11/12/17 17:32 Dose: Not Given Rifaximin (Xifaxan) 550 mg PO BID [facility] Last Admin: 11/12/17 17:31 Dose: 550 mg Temazepam (Restoril) 15 mg PO HS [facility] Last Admin: 11/12/17 21:21 Dose: Not Given Vitamin A (Vitamin A & D Oint Ud Foilpak) 1 ea TOP Q4 [facility] Last Admin: 11/13/17 04:54 Dose: 1 ea Physical Exam - Constitutional Appears: Confused, Chronically Ill - Head Exam Head Exam: ATRAUMATIC - Eye Exam Eye Exam: Scleral icterus - ENT Exam ENT Exam: Normal Exam - Neck Exam Neck exam: Positive for: Normal Inspection - Respiratory Exam Respiratory Exam: NORMAL BREATHING PATTERN - Cardiovascular Exam Cardiovascular Exam: REGULAR RHYTHM - GI/Abdominal Exam GI & Abdominal Exam: Soft. absent: Distended, Mass, Tenderness - Extremities Exam Additional comments: + Asterixis - Back Exam Back exam: NORMAL INSPECTION - Neurological Exam Neurological exam: Alert, Altered Additional comments: Disoriented, perseverating - Psychiatric Exam Psychiatric exam: Anxious - Skin Skin Exam: Warm Results - Vital Signs Recent Vital Signs: Last Vital Signs Temp 98.3 F 11/13/17 07:40 Pulse 90 11/13/17 07:40 Resp 20 11/13/17 07:40 BP 158/65 H 11/13/17 07:40 Pulse Ox 97 11/13/17 07:40 - Labs Result Diagrams: 11/13/17 06:39 11/13/17 06:39 Labs: Laboratory Results - last 24 hr 11/10/17 11/12/17 11/12/17 07:49 11:56 16:43 WBC RBC Hgb Hct MCV MCH MCHC RDW Plt Count MPV Neut % (Auto) Lymph % (Auto) Ballard % (Auto) Eos % (Auto) Baso % (Auto) Neut # Lymph # Ballard # Eos # Baso # PT INR APTT Sodium Potassium Chloride Carbon Dioxide Anion Gap BUN Creatinine Est GFR ( Amer) Est GFR (Non-Af Amer) POC Glucose (mg/dL) 202 H Random Glucose Calcium Total Bilirubin AST ALT Alkaline Phosphatase Ammonia 56 H D Total Protein Albumin Globulin Albumin/Globulin Ratio Blood Type Antibody Screen Antibody Identification Cancelled 11/12/17 11/13/17 11/13/17 21:27 02:18 02:18 WBC 2.1 L RBC 2.93 L Hgb 9.6 L Hct 27.6 L MCV 94.4 D MCH 32.8 H MCHC 34.8 RDW 15.2 H Plt Count 30 L* MPV 8.3 Neut % (Auto) 77.5 H Lymph % (Auto) 11.0 L Ballard % (Auto) 8.5 Eos % (Auto) 2.4 Baso % (Auto) 0.6 Neut # 1.6 L Lymph # 0.2 L Ballard # 0.2 Eos # 0.1 Baso # 0.0 PT 19.0 H INR 1.7 APTT 40 H Sodium Potassium Chloride Carbon Dioxide Anion Gap BUN Creatinine Est GFR ( Amer) Est GFR (Non-Af Amer) POC Glucose (mg/dL) 330 H Random Glucose Calcium Total Bilirubin AST ALT Alkaline Phosphatase Ammonia Total Protein Albumin Globulin Albumin/Globulin Ratio Blood Type Antibody Screen Antibody Identification 11/13/17 11/13/17 11/13/17 02:18 06:39 06:39 WBC 1.5 L* RBC 2.74 L Hgb 9.1 L Hct 25.5 L MCV 92.9 MCH 33.1 H MCHC 35.6 RDW 15.0 H Plt Count 24 L* MPV 8.1 Neut % (Auto) Lymph % (Auto) Ballard % (Auto) Eos % (Auto) Baso % (Auto) Neut # Lymph # Ballard # Eos # Baso # PT INR APTT Sodium 133 137 Potassium 3.8 3.4 L Chloride 94 L 95 L Carbon Dioxide 37 H 38 H Anion Gap 7 L 7 L BUN 21 H 20 H Creatinine 0.6 L 0.5 L Est GFR ( Amer) > 60 > 60 Est GFR (Non-Af Amer) > 60 > 60 POC Glucose (mg/dL) Random Glucose 359 H 301 H Calcium 8.3 L 8.6 Total Bilirubin 4.5 H 4.4 H AST 29 29 ALT 29 32 Alkaline Phosphatase 101 99 Ammonia Total Protein 5.2 L 5.3 L Albumin 2.4 L 2.5 L Globulin 2.8 2.8 Albumin/Globulin Ratio 0.8 L 0.9 L Blood Type Antibody Screen Antibody Identification 11/13/17 11/13/17 11/13/17 06:39 06:39 06:39 WBC RBC Hgb Hct MCV MCH MCHC RDW Plt Count MPV Neut % (Auto) Lymph % (Auto) Ballard % (Auto) Eos % (Auto) Baso % (Auto) Neut # Lymph # Ballard # Eos # Baso # PT 18.0 H INR 1.6 APTT 37 H Sodium Potassium Chloride Carbon Dioxide Anion Gap BUN Creatinine Est GFR ( Amer) Est GFR (Non-Af Amer) POC Glucose (mg/dL) Random Glucose Calcium Total Bilirubin AST ALT Alkaline Phosphatase Ammonia 44 H D Total Protein Albumin Globulin Albumin/Globulin Ratio Blood Type O POSITIVE Antibody Screen Positive Antibody Identification Cancelled 11/13/17 06:45 WBC RBC Hgb Hct MCV MCH MCHC RDW Plt Count MPV Neut % (Auto) Lymph % (Auto) Ballard % (Auto) Eos % (Auto) Baso % (Auto) Neut # Lymph # Ballard # Eos # Baso # PT INR APTT Sodium Potassium Chloride Carbon Dioxide Anion Gap BUN Creatinine Est GFR ( Amer) Est GFR (Non-Af Amer) POC Glucose (mg/dL) 289 H Random Glucose Calcium Total Bilirubin AST ALT Alkaline Phosphatase Ammonia Total Protein Albumin Globulin Albumin/Globulin Ratio Blood Type Antibody Screen Antibody Identification Assessment & Plan (1) Closed displaced intertrochanteric fracture of right femur Assessment and Plan: Managed by Orthopedics. 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 Managed by Hematology At present I do not suspect GI bleeding Status: Acute (3) Cirrhosis Assessment and Plan: Chronic. Managed and followed by Dr Arguello, Voicemail left with her to discuss. Now acutely decompensated with encephalopathy Status: Acute (4) Coagulopathy Status: Acute (5) Hepatic encephalopathy Assessment and Plan: Due to underlying stress. Not receiving Lactulose adequately On Rifaximin Will order Lactulose via enema and monitor clinical response. Status: Acute - Date & Time Date: 11/13/17 Time: 08:56
--- NOTE | 2017-11-13 08:57 | CP.PCM.PN ---
Subjective - Date & Time of Evaluation Date of Evaluation: 11/13/17 Time of Evaluation: 10:25 - Subjective Subjective: PGY 2 Medicine Note- Dr. Jean Marie Coronado's service Patient seen and examined in no apparent acute distress. Patient reports pain in her right hip with brief movements. Patient's son present bedside with concerns and questions addressed. Son states Objective - Vital Signs/Intake and Output Vital Signs (last 24 hours): Temp Pulse Resp BP Pulse Ox 98.3 F 90 20 158/65 H 97 11/13/17 07:40 11/13/17 07:40 11/13/17 07:40 11/13/17 07:40 11/13/17 07:40 Intake and Output: 11/13/17 11/13/17 06:59 18:59 Intake Total 1024 Output Total 400 Balance 624 - Medications Medications: Current Medications Bumetanide (Bumex) 1 mg PO DAILY [facility] Last Admin: 11/12/17 10:59 Dose: Not Given Diphenhydramine HCl (Benadryl) 25 mg IVP Q6 PRN PRN Reason: Itching / Pruritus Last Admin: 11/11/17 05:55 Dose: 25 mg Duloxetine HCl (Cymbalta) 30 mg PO DAILY [facility] Last Admin: 11/12/17 10:59 Dose: Not Given Ferrous Sulfate (Feosol) 325 mg PO DAILY [facility] Last Admin: 11/12/17 10:50 Dose: 325 mg Gabapentin (Neurontin) 300 mg PO BID [facility] Last Admin: 11/12/17 17:32 Dose: Not Given Insulin Aspart (Novolog) 0 unit SC [facility] PRN Reason: Protocol Last Admin: 11/13/17 08:20 Dose: Not Given Insulin Glargine (Lantus) 10 unit SC DAILY [facility] Last Admin: 11/12/17 10:49 Dose: 10 units Lactulose (Enulose) 20 gm PO HS [facility] Last Admin: 11/12/17 21:21 Dose: Not Given Pantoprazole Sodium (Protonix Inj) 40 mg IVP Q12H [facility] Last Admin: 11/13/17 08:34 Dose: 40 mg Propranolol HCl (Inderal) 10 mg PO BID [facility] Last Admin: 11/12/17 17:32 Dose: Not Given Rifaximin (Xifaxan) 550 mg PO BID [facility] Last Admin: 11/12/17 17:31 Dose: 550 mg Temazepam (Restoril) 15 mg PO HS [facility] Last Admin: 11/12/17 21:21 Dose: Not Given Vitamin A (Vitamin A & D Oint Ud Foilpak) 1 ea TOP Q4 [facility] Last Admin: 11/13/17 04:54 Dose: 1 ea - Labs Labs: 11/13/17 06:39 11/13/17 06:39 PT 18.0 SECONDS (9.7-12.2) H 11/13/17 06:39 INR 1.6 11/13/17 06:39 APTT 37 SECONDS (21-34) H 11/13/17 06:39 Assessment and Plan - Assessment and Plan (Free Text) Assessment: Pancytopenia Secondarily due to hypersplenism as noted by Hematology-Oncology team. Patient was transfused platelets and FFP overnight 11/12/17 into the morning of 11/13/17 in anticipation of OR procedure initially scheduled for 11/13/17 Early AM labs indicate platelets of 24 despite transfusion (Dr. Maciel covering for [facility] team) Closed displaced intertrochanteric fracture of right femur Dr. Flynn, orthopedic surgery on the case Closed reduction versus open reduction and internal fixation with long intramedullary hip nail originally planned for 11/13/17; however in light of pancytopenia despite transfusions- would recommend holding off until patient is medically optimized. Pre-op MRI ordered- F/U results R hip and pelvis CT, 11/09/17:+ displaced intratrochanteric R hip fracture with extension just beyond the level of the lesser trochanter, + nondisplaced right- sided inferior pubic ramus fracture Dilaudid 1mg IVP q6prn pain control Dr. Napier consulted for pre-operative cardiac risk evaluation: recommend blood pressure control, no cardiac contraindication to surgery Anemia Likely secondary to chronic liver disease as well as hypersplenism Hgb 9.1 Continue feosol 325mg PO daily GI consult requested per [facility] team- F/U Hepatic encephalopathy Suspected due to underlying liver disease Elevated Ammonia levels On home regiment of Rifaximin and Lactulose Liver Cirrhosis Hx of hepatic encephalopathy, was being seen in the past by the Liver team at [facility] as per [facility] note. Has seen Dr Melany Arguello for cirrhosis and was treated with Harvoni Continue home regimen lactulose 20gm PO HS, Xifaxan 550mg PO BID F/U GI recommendations HTN Continue home meds Bumetanide 1 mg PO DAILY [facility] Inderal 10 mg PO BID [facility] Diabetes Consistent carb diet Continue home meds Neurontin 300 mg PO BID [facility] Novolog 0 unit SC ACHS [facility] Lantus 10 unit SC DAILY [facility] Anxiety Restoril 15mg PO HS Cymbalta 30mg PO daily Prophylaxis Protonix 40mg po daily Chemical anticoagulation held due to pancytopenia and OR tomorrow A&D ointment to dry lips Discussed with attending. All Medical management as per Dr. Jean Marie Coronado
[2017-11-13] MEDS ORDERED: ceFAZolin IV 2 gm in Dextrose 2 GM/50 ML BAG IVPB ONE (09:30)
[2017-11-13] MEDS: (Lantus) Insulin Glargine, Recombinant SC SCH (09:42)
[2017-11-13 10:16] LABS: HEMOGLOBIN 9.3 g/dL (11.0-16.0); MEAN CELL VOLUME 93.8 fL (81.0-99.0); MEAN CORPUSCULAR HEMOGLOBIN 32.4 pg (27.0-31.0); MEAN CORPUSCULAR HGB CONC 34.5 g/dL (33.0-37.0); MEAN PLATELET VOLUME 8.3 fL (7.2-11.7); RBC 2.88 Mil/uL (3.80-5.20); RED CELL DISTRIBUTION WIDTH 15.2 % (11.5-14.5)
[2017-11-13 10:18] LABS: WHITE BLOOD COUNT 1.3 K/uL (4.8-10.8)
[2017-11-13] MEDS ORDERED: Rocuronium 10 mg/ml (10 ml) ONE ×2 (10:50→11:45)
[2017-11-13] MEDS ORDERED: Lactated Ringer's 1,000 ML IV ONE (10:53)
[2017-11-13] MEDS ORDERED: Vancomycin 1 gm/D5W 200 ml 1 GM/200 ML BAG IVPB ONE (10:53)
[2017-11-13] MEDS ORDERED: Sodium Chloride 0.9% 1,000 ML IV ONE (11:36)
[2017-11-13] MEDS ORDERED: Neostigmine Methylsulfate 3mg/3ml Syringe IV ONE (12:42)
[2017-11-13] MEDS ORDERED: HYDROmorphone 0.5 mg/0.5 ml ISec IVP PRN (13:34)
--- NOTE | 2017-11-13 15:07 | RAD ---
PROCEDURE: Right Hip Radiographs. HISTORY: S/P ORIF W/PINNING AND TROCH NAIL COMPARISON: 11/08/2017 FINDINGS: BONES: Status post ORIF intertrochanteric fracture right hip. There are not stomach alignment achieved. There is mild displacement of the lesser trochanter. No other fracture is appreciated. JOINTS: Normal. SOFT TISSUES: Postsurgical changes in the lateral soft tissues of the right thigh/hip OTHER FINDINGS: None. IMPRESSION: Status post ORIF right intertrochanteric hip fracture.
--- NOTE | 2017-11-13 15:07 | RAD ---
PROCEDURE: Right Femur Radiographs. HISTORY: S/P ORIF W/ PINNING AND TROCH NAIL COMPARISON: 11/11/2017 TECHNIQUE: AP and Lateral Radiographs of the right femur. FINDINGS: FEMUR: Status post ORIF right intertrochanteric comminuted fracture. Near anatomic alignment is achieved. There is displacement of the lesser trochanter. No other fracture is identified. SOFT TISSUES: Normal. OTHER FINDINGS: None. IMPRESSION: Status post ORIF intertrochanteric fracture right hip
--- NOTE | 2017-11-13 15:23 | RAD ---
PROCEDURE: Intraoperative fluoro HISTORY: FX. LT. HIP COMPARISON: Not available TECHNIQUE: Intraoperative fluoroscopy was provided for ORIF of right intertrochanteric fracture. Total time of fluoroscopy was 399.1 seconds. FINDINGS: Multiple fluoroscopic spot films are submitted. These films are on file for review. IMPRESSION: Fluoroscopy provided.
--- NOTE | 2017-11-13 19:16 | CP.PCM.PN ---
Subjective - Date & Time of Evaluation Date of Evaluation: 11/13/17 Time of Evaluation: 11:00 - Subjective Subjective: clinically same Objective - Vital Signs/Intake and Output Vital Signs (last 24 hours): Temp Pulse Resp BP Pulse Ox 97.7 F 116 H 20 141/82 97 11/13/17 16:31 11/13/17 16:31 11/13/17 16:31 11/13/17 16:31 11/13/17 16:31 Intake and Output: 11/13/17 11/14/17 18:59 06:59 Intake Total 2020 Output Total 200 Balance 1821 - Medications Medications: Current Medications Bumetanide (Bumex) 1 mg PO DAILY [facility] Last Admin: 11/13/17 09:39 Dose: Not Given Diphenhydramine HCl (Benadryl) 25 mg IVP Q6 PRN PRN Reason: Itching / Pruritus Last Admin: 11/11/17 05:55 Dose: 25 mg Duloxetine HCl (Cymbalta) 30 mg PO DAILY [facility] Last Admin: 11/13/17 09:39 Dose: Not Given Ferrous Sulfate (Feosol) 325 mg PO DAILY [facility] Last Admin: 11/13/17 09:42 Dose: Not Given Gabapentin (Neurontin) 300 mg PO BID [facility] Last Admin: 11/13/17 18:03 Dose: Not Given Insulin Aspart (Novolog) 0 unit SC ACHS [facility] PRN Reason: Protocol Last Admin: 11/13/17 16:37 Dose: Not Given Insulin Glargine (Lantus) 10 unit SC DAILY [facility] Last Admin: 11/13/17 09:42 Dose: Not Given Lactulose (Enulose) 20 gm PO TID [facility] Last Admin: 11/13/17 18:03 Dose: Not Given Pantoprazole Sodium (Protonix Inj) 40 mg IVP Q12H [facility] Last Admin: 11/13/17 08:34 Dose: 40 mg Propranolol HCl (Inderal) 10 mg PO BID [facility] Last Admin: 11/13/17 18:03 Dose: Not Given Rifaximin (Xifaxan) 550 mg PO BID [facility] Last Admin: 11/13/17 18:04 Dose: Not Given Temazepam (Restoril) 15 mg PO HS [facility] Last Admin: 11/12/17 21:21 Dose: Not Given Vitamin A (Vitamin A & D Oint Ud Foilpak) 1 ea TOP Q4 [facility] Last Admin: 11/13/17 16:37 Dose: Not Given - Labs Labs: 11/13/17 10:10 11/13/17 06:39 PT 18.0 SECONDS (9.7-12.2) H 11/13/17 06:39 INR 1.6 11/13/17 06:39 APTT 37 SECONDS (21-34) H 11/13/17 06:39 - Constitutional Appears: Well - Head Exam Head Exam: ATRAUMATIC, NORMAL INSPECTION, NORMOCEPHALIC - Eye Exam Eye Exam: EOMI, Normal appearance, PERRL Pupil Exam: NORMAL ACCOMODATION, PERRL - ENT Exam ENT Exam: Mucous Membranes Moist, Normal Exam - Neck Exam Neck Exam: Full ROM, Normal Inspection. absent: Lymphadenopathy - Respiratory Exam Respiratory Exam: Decreased Breath Sounds - Cardiovascular Exam Cardiovascular Exam: REGULAR RHYTHM, +S1, +S2 - GI/Abdominal Exam GI & Abdominal Exam: Soft, Diminished Bowel Sounds - Rectal Exam Rectal Exam: Deferred
--- NOTE | 2017-11-13 21:23 | CP.PCM.PN ---
Subjective - Date & Time of Evaluation Date of Evaluation: 11/13/17 Time of Evaluation: 21:20 - Subjective Subjective: The patient is postop, remains lethargic, but is arousable, confused. No active bleeding, Objective - Vital Signs/Intake and Output Vital Signs (last 24 hours): Temp Pulse Resp BP Pulse Ox 97.7 F 116 H 20 141/82 97 11/13/17 16:31 11/13/17 16:31 11/13/17 16:31 11/13/17 16:31 11/13/17 16:31 Intake and Output: 11/13/17 11/14/17 18:59 06:59 Intake Total 2021 Output Total 200 Balance 1821 - Medications Medications: Current Medications Bumetanide (Bumex) 1 mg PO DAILY [facility] Last Admin: 11/13/17 09:39 Dose: Not Given Diphenhydramine HCl (Benadryl) 25 mg IVP Q6 PRN PRN Reason: Itching / Pruritus Last Admin: 11/11/17 05:55 Dose: 25 mg Duloxetine HCl (Cymbalta) 30 mg PO DAILY [facility] Last Admin: 11/13/17 09:39 Dose: Not Given Ferrous Sulfate (Feosol) 325 mg PO DAILY [facility] Last Admin: 11/13/17 09:42 Dose: Not Given Gabapentin (Neurontin) 300 mg PO BID [facility] Last Admin: 11/13/17 18:03 Dose: Not Given Insulin Aspart (Novolog) 0 unit SC ACHS [facility] PRN Reason: Protocol Last Admin: 11/13/17 21:05 Dose: Not Given Insulin Glargine (Lantus) 10 unit SC DAILY [facility] Last Admin: 11/13/17 09:42 Dose: Not Given Lactulose (Enulose) 20 gm PO TID [facility] Last Admin: 11/13/17 18:03 Dose: Not Given Pantoprazole Sodium (Protonix Inj) 40 mg IVP Q12H [facility] Last Admin: 11/13/17 08:34 Dose: 40 mg Propranolol HCl (Inderal) 10 mg PO BID [facility] Last Admin: 11/13/17 18:03 Dose: Not Given Rifaximin (Xifaxan) 550 mg PO BID [facility] Last Admin: 11/13/17 18:04 Dose: Not Given Temazepam (Restoril) 15 mg PO HS [facility] Last Admin: 11/12/17 21:21 Dose: Not Given Vitamin A (Vitamin A & D Oint Ud Foilpak) 1 ea TOP Q4 [facility] Last Admin: 11/13/17 21:06 Dose: Not Given - Labs Labs: 11/13/17 10:10 11/13/17 06:39 PT 18.0 SECONDS (9.7-12.2) H 11/13/17 06:39 INR 1.6 11/13/17 06:39 APTT 37 SECONDS (21-34) H 11/13/17 06:39 Assessment and Plan (1) Pancytopenia Assessment & Plan: 72 yo woman s/p repair of hip fracture, pancytopenia, neutropenia, on PRN transfusions, Granix till WBC count increases to more than 5. The patient seems stable postop, will determine need for transfusion depending on AM labs Status: Acute
[2017-11-14] MEDS: Vitamins A & D Oint UD Foilpak TOP SCH ×6 (00:17→20:00)
[2017-11-14 06:04] LABS: VENOUS BLOOD GAS BASE EXCESS 4.1 mmol/L (0.0-2.0); VENOUS BLOOD GAS PCO2 36 mmHg (40-60); VENOUS BLOOD GAS PO2 56 mm/Hg (30-55); VENOUS BLOOD PH 7.49 (7.32-7.43)
[2017-11-14 06:31] LABS: ALB/GLOB RATIO 0.9 (1.0-2.1); ALBUMIN 2.2 g/dL (3.5-5.0); ALT/SGPT 22 U/L (9-52); AST/SGOT 33 U/L (14-36); BLOOD UREA NITROGEN 31 mg/dL (7-17); GFR AFRICAN-AMERICAN > 60; GFR NON-AFRICAN AMERICAN 55
[2017-11-14 06:32] LABS: BASO % 0.2 % (0.0-2.0); HEMOGLOBIN 8.5 g/dL (11.0-16.0); LYMPH % 4.4 % (20.0-40.0); MEAN CELL VOLUME 90.6 fL (81.0-99.0); MEAN CORPUSCULAR HEMOGLOBIN 30.6 pg (27.0-31.0); MEAN CORPUSCULAR HGB CONC 33.7 g/dL (33.0-37.0); MEAN PLATELET VOLUME 8.1 fL (7.2-11.7); MONO # 1.1 K/uL (0.0-0.8); NEUT # 20.1 K/uL (1.8-7.0); NEUT % 90.4 % (50.0-75.0); NRBC % 0.1 % (0.0-2.0); PLATELET COUNT 81 K/uL (130-400); RBC 2.78 Mil/uL (3.80-5.20); RED CELL DISTRIBUTION WIDTH 17.9 % (11.5-14.5); WHITE BLOOD COUNT 22.3 K/uL (4.8-10.8)
--- NOTE | 2017-11-14 07:11 | CP.PCM.PN ---
Subjective - Date & Time of Evaluation Date of Evaluation: 11/14/17 Time of Evaluation: 05:30 - Subjective Subjective: Patient seen and examined. Patient was tachycardic post Right hip ORIF. Stat VBG , CBC, CMP was ordered. The lactate resulted at 5.1. Dr. Raj Coronado was notified. He requested sepsis workup, notification of the ore dryer on the case, ID consult, Rocephin 1 gm IV. Blood cultures, urine cultures, normal saline, Rocephin 1 gm IV, and a repeat VBG with shock for 4 hours later was ordered. Objective - Vital Signs/Intake and Output Vital Signs (last 24 hours): Temp Pulse Resp BP Pulse Ox 99.4 F 127 H 20 129/75 100 11/14/17 04:10 11/14/17 04:43 11/14/17 04:10 11/14/17 04:43 11/14/17 04:43 Intake and Output: 11/14/17 11/14/17 06:59 18:59 Output Total 100 Balance -100 - Medications Medications: Current Medications Bumetanide (Bumex) 1 mg PO DAILY [facility] Last Admin: 11/13/17 09:39 Dose: Not Given Diphenhydramine HCl (Benadryl) 25 mg IVP Q6 PRN PRN Reason: Itching / Pruritus Last Admin: 11/11/17 05:55 Dose: 25 mg Duloxetine HCl (Cymbalta) 30 mg PO DAILY [facility] Last Admin: 11/13/17 09:39 Dose: Not Given Ferrous Sulfate (Feosol) 325 mg PO DAILY [facility] Last Admin: 11/13/17 09:42 Dose: Not Given Gabapentin (Neurontin) 300 mg PO BID [facility] Last Admin: 11/13/17 18:03 Dose: Not Given Ceftriaxone Sodium 1 gm/ (Sodium Chloride) 100 mls @ 100 mls/hr IVPB ONCE ONE Stop: 11/14/17 07:24 Sodium Chloride (Sodium Chloride 0.9%) 1,000 mls @ 150 mls/hr IV .Q6H40M [facility] Insulin Aspart (Novolog) 0 unit SC ACHS [facility] PRN Reason: Protocol Last Admin: 11/13/17 21:05 Dose: Not Given Insulin Glargine (Lantus) 10 unit SC DAILY [facility] Last Admin: 11/13/17 09:42 Dose: Not Given Lactulose (Enulose) 20 gm PO TID [facility] Last Admin: 11/13/17 18:03 Dose: Not Given Pantoprazole Sodium (Protonix Inj) 40 mg IVP Q12H [facility] Last Admin: 11/13/17 21:35 Dose: 40 mg Propranolol HCl (Inderal) 10 mg PO BID [facility] Last Admin: 11/13/17 18:03 Dose: Not Given Rifaximin (Xifaxan) 550 mg PO BID [facility] Last Admin: 11/13/17 18:04 Dose: Not Given Temazepam (Restoril) 15 mg PO HS [facility] Last Admin: 11/13/17 21:36 Dose: Not Given Vitamin A (Vitamin A & D Oint Ud Foilpak) 1 ea TOP Q4 [facility] Last Admin: 11/14/17 04:25 Dose: 1 ea - Labs Labs: 11/14/17 06:10 11/14/17 06:10 PT 18.0 SECONDS (9.7-12.2) H 11/13/17 06:39 INR 1.6 11/13/17 06:39 APTT 37 SECONDS (21-34) H 11/13/17 06:39
[2017-11-14] MEDS: Sodium Chloride 0.9% 1,000 ML IV SCH ×3 (07:42→22:24)
[2017-11-14 07:45] LABS: PROTHROMBIN TIME 29.9 SECONDS (9.7-12.2)
[2017-11-14 07:46] LABS: INR 2.6
[2017-11-14 08:09] LABS: BANDS 24 % (0-2); MONOCYTE 5 % (0-10); NEUTROPHIL 71 % (50-75); PLATELET ESTIMATE DECREASED (NORMAL); TOTAL CELLS COUNTED 100
[2017-11-14 08:10] LABS: ANISOCYTOSIS SLIGHT; HYPOCHROMIC SLIGHT; MICROCYTOSIS SLIGHT; POIKILOCYTOSIS SLIGHT; POLYCHROMIC SLIGHT
[2017-11-14 08:11] LABS: BURR CELLS SLIGHT; TEARDROP CELLS SLIGHT
[2017-11-14] MEDS: (Novolog) Insulin Aspart, Recombinant 100 u/ml 10 ml vial SC SCH ×4 (08:33→22:15)
[2017-11-14] MEDS: Aztreonam 1 GM in Sodium Chloride 0.9% 100 ML IVPB SCH ×2 (08:48→20:00)
[2017-11-14] MEDS: (Lantus) Insulin Glargine, Recombinant SC SCH (09:38)
[2017-11-14] MEDS: Vancomycin 750mg/D5W 150 ml 150 ML IVPB SCH ×2 (10:04→22:00)
[2017-11-14 10:27] LABS: VENOUS BLOOD GAS BASE EXCESS 2.4 mmol/L (0.0-2.0); VENOUS BLOOD GAS PCO2 38 mmHg (40-60); VENOUS BLOOD GAS PO2 52 mm/Hg (30-55); VENOUS BLOOD PH 7.45 (7.32-7.43)
--- NOTE | 2017-11-14 10:36 | CP.PCM.PN ---
Subjective - Date & Time of Evaluation Date of Evaluation: 11/14/17 Time of Evaluation: 10:25 - Subjective Subjective: [facility] TEACHER NOTES patient seen today, awake, confused, slow responding to questions,tachypnic and tachycardic ( HR 130,s ), mild resp. distress, jaundiced a febrile sinus tachycardia on monitor - 130's labs- lactic acid up from 5.1- 9.1 s/p R hip ORIF with pinning POD # 1 Objective - Vital Signs/Intake and Output Vital Signs (last 24 hours): Temp Pulse Resp BP Pulse Ox 98.2 F 112 H 20 138/70 98 11/14/17 10:35 11/14/17 10:35 11/14/17 10:35 11/14/17 10:35 11/14/17 10:35 Intake and Output: 11/14/17 11/14/17 06:59 18:59 Output Total 100 Balance -100 - Medications Medications: Current Medications Bumetanide (Bumex) 1 mg PO DAILY [facility] Last Admin: 11/14/17 09:38 Dose: 1 mg Diphenhydramine HCl (Benadryl) 25 mg IVP Q6 PRN PRN Reason: Itching / Pruritus Last Admin: 11/11/17 05:55 Dose: 25 mg Duloxetine HCl (Cymbalta) 30 mg PO DAILY [facility] Last Admin: 11/14/17 09:38 Dose: 30 mg Ferrous Sulfate (Feosol) 325 mg PO DAILY [facility] Last Admin: 11/14/17 09:38 Dose: 325 mg Gabapentin (Neurontin) 300 mg PO BID [facility] Last Admin: 11/14/17 09:38 Dose: 300 mg Sodium Chloride (Sodium Chloride 0.9%) 1,000 mls @ 150 mls/hr IV .Q6H40M [facility] Last Admin: 11/14/17 07:42 Dose: 150 mls/hr Aztreonam 1 gm/ Sodium (Chloride) 100 mls @ 100 mls/hr IVPB Q12H [facility] Last Admin: 11/14/17 08:48 Dose: 100 mls/hr Vancomycin HCl (Vancocin 750mg/D5w 150 Ml) 150 mls @ 150 mls/hr IVPB Q12H [facility] Last Admin: 11/14/17 10:04 Dose: 150 mls/hr Insulin Aspart (Novolog) 0 unit SC ACHS [facility] PRN Reason: Protocol Last Admin: 11/14/17 08:33 Dose: 4 unit Insulin Glargine (Lantus) 10 unit SC DAILY [facility] Last Admin: 11/14/17 09:38 Dose: 10 units Lactulose (Enulose) 20 gm PO TID [facility] Last Admin: 11/14/17 09:50 Dose: 20 gm Pantoprazole Sodium (Protonix Inj) 40 mg IVP Q12H [facility] Last Admin: 11/14/17 08:33 Dose: 40 mg Propranolol HCl (Inderal) 10 mg PO BID [facility] Last Admin: 11/14/17 09:38 Dose: 10 mg Rifaximin (Xifaxan) 550 mg PO BID [facility] Last Admin: 11/14/17 09:38 Dose: 550 mg Temazepam (Restoril) 15 mg PO HS [facility] Last Admin: 11/13/17 21:36 Dose: Not Given Vitamin A (Vitamin A & D Oint Ud Foilpak) 1 ea TOP Q4 [facility] Last Admin: 11/14/17 08:33 Dose: 1 ea - Labs Labs: 11/14/17 06:10 11/14/17 06:10 PT 29.9 SECONDS (9.7-12.2) H* D 11/14/17 07:15 INR 2.6 D 11/14/17 07:15 APTT 36 SECONDS (21-34) H 11/14/17 07:15 - Constitutional Appears: Confused (mild resp. distress ) - Eye Exam Eye Exam: Scleral icterus - Cardiovascular Exam Cardiovascular Exam: Tachycardia, REGULAR RHYTHM, +S1, +S2 - Extremities Exam Extremities Exam: Pedal Edema (upper and lower extremity edema ) - Neurological Exam Neurological Exam: Alert Assessment and Plan - Assessment and Plan (Free Text) Assessment: A/P 72 y/o female with PMH of Hepatitis C with cirrhosis , hypertension, pancytopenia, history of multiple GI bleeds, and diabetes, admitted s/p fall at home found to have a displaced, comminuted intertrochan fx and s/p ORIF with pinning POD #1 todays labs reviewed lactate up from 5.1 to 9.1 and wbc-1.3- 22.3 and bands of 24 tachycardia on monitor 130's with stable bp and a febrile, patient symptomatic , declining mental status and decr. urine out put in you cath Patient on azactum and vanco and Dr. Ruggiero on ID consult IVF bolus I liter started D/W Dr. Jiménez (eyeglass maker )for possible transfer to ICU for further management , recommends to bolus 2 lit . and will evaluate patient The above plan discussed with Dr. Juana boogie and agrees with plan
[2017-11-14] MEDS ORDERED: Sodium Chloride 0.9% 1,000 ML IV SCH (10:45)
--- NOTE | 2017-11-14 10:50 | CP.PCM.PN ---
Subjective - Date & Time of Evaluation Date of Evaluation: 11/14/17 Time of Evaluation: 10:00 - Subjective Subjective: patient had an episode of tachycardia. appears altered Objective - Vital Signs/Intake and Output Vital Signs (last 24 hours): Temp Pulse Resp BP Pulse Ox 98.2 F 112 H 20 138/70 98 11/14/17 10:35 11/14/17 10:35 11/14/17 10:35 11/14/17 10:35 11/14/17 10:35 Intake and Output: 11/14/17 11/14/17 06:59 18:59 Output Total 100 Balance -100 - Medications Medications: Current Medications Bumetanide (Bumex) 1 mg PO DAILY [facility] Last Admin: 11/14/17 09:38 Dose: 1 mg Diphenhydramine HCl (Benadryl) 25 mg IVP Q6 PRN PRN Reason: Itching / Pruritus Last Admin: 11/11/17 05:55 Dose: 25 mg Duloxetine HCl (Cymbalta) 30 mg PO DAILY [facility] Last Admin: 11/14/17 09:38 Dose: 30 mg Ferrous Sulfate (Feosol) 325 mg PO DAILY [facility] Last Admin: 11/14/17 09:38 Dose: 325 mg Gabapentin (Neurontin) 300 mg PO BID [facility] Last Admin: 11/14/17 09:38 Dose: 300 mg Sodium Chloride (Sodium Chloride 0.9%) 1,000 mls @ 150 mls/hr IV .Q6H40M [facility] Last Admin: 11/14/17 07:42 Dose: 150 mls/hr Aztreonam 1 gm/ Sodium (Chloride) 100 mls @ 100 mls/hr IVPB Q12H [facility] Last Admin: 11/14/17 08:48 Dose: 100 mls/hr Vancomycin HCl (Vancocin 750mg/D5w 150 Ml) 150 mls @ 150 mls/hr IVPB Q12H [facility] Last Admin: 11/14/17 10:04 Dose: 150 mls/hr Sodium Chloride (Sodium Chloride 0.9%) 1,000 mls @ 999 mls/hr IV .Q1H1M [facility] Last Admin: 11/14/17 10:44 Dose: 999 mls/hr Insulin Aspart (Novolog) 0 unit SC ACHS [facility] PRN Reason: Protocol Last Admin: 11/14/17 08:33 Dose: 4 unit Insulin Glargine (Lantus) 10 unit SC DAILY [facility] Last Admin: 11/14/17 09:38 Dose: 10 units Lactulose (Enulose) 20 gm PO TID [facility] Last Admin: 11/14/17 09:50 Dose: 20 gm Pantoprazole Sodium (Protonix Inj) 40 mg IVP Q12H [facility] Last Admin: 11/14/17 08:33 Dose: 40 mg Propranolol HCl (Inderal) 10 mg PO BID [facility] Last Admin: 11/14/17 09:38 Dose: 10 mg Rifaximin (Xifaxan) 550 mg PO BID [facility] Last Admin: 11/14/17 09:38 Dose: 550 mg Temazepam (Restoril) 15 mg PO HS [facility] Last Admin: 11/13/17 21:36 Dose: Not Given Vitamin A (Vitamin A & D Oint Ud Foilpak) 1 ea TOP Q4 [facility] Last Admin: 11/14/17 08:33 Dose: 1 ea - Labs Labs: 11/14/17 06:10 11/14/17 06:10 PT 29.9 SECONDS (9.7-12.2) H* D 11/14/17 07:15 INR 2.6 D 11/14/17 07:15 APTT 36 SECONDS (21-34) H 11/14/17 07:15 - Constitutional Appears: Chronically Ill - Head Exam Head Exam: NORMAL INSPECTION - Eye Exam Eye Exam: Normal appearance Additional comments: icteric - ENT Exam ENT Exam: Mucous Membranes Dry - Neck Exam Neck Exam: Full ROM - Respiratory Exam Respiratory Exam: NORMAL BREATHING PATTERN - Cardiovascular Exam Cardiovascular Exam: Tachycardia, REGULAR RHYTHM - GI/Abdominal Exam GI & Abdominal Exam: Normal Bowel Sounds - Rectal Exam Rectal Exam: Deferred - Extremities Exam Extremities Exam: Pedal Edema - Back Exam Back Exam: NORMAL INSPECTION - Neurological Exam Neurological Exam: Alert - Psychiatric Exam Psychiatric exam: Normal Affect - Skin Skin Exam: Normal Color Assessment and Plan (1) HTN (hypertension) Assessment & Plan: has tachycardia. can continue cardizem. consider change to propanolol given portal hypertension. tachcyardia may be due to underlying sepsis although WBC response may be due to granix Status: Acute (2) Hepatic encephalopathy Status: Acute
[2017-11-14] MEDS ORDERED: Sodium Chloride 0.9% 1,000 ML IV ONE (11:17)
--- NOTE | 2017-11-14 11:55 | RAD ---
HISTORY: sepsis COMPARISON: Chest x-ray performed 11/08/17 TECHNIQUE: Chest, one view. FINDINGS: Numerous external wires and leads. LUNGS: Central vascular and pulmonary venous congestion. Mild left basilar atelectasis/infiltrate. Please note that chest x-ray has limited sensitivity for the detection of pulmonary masses. PLEURA: Probable small left pleural effusion. No definite pneumothorax . CARDIOVASCULAR: Cardiomegaly. OSSEOUS STRUCTURES: Osseous demineralization. Degenerative changes. VISUALIZED UPPER ABDOMEN: Unremarkable. OTHER FINDINGS: None. IMPRESSION: Central vascular mild pulmonary venous congestion. Probable small left pleural effusion. Mild left basilar atelectasis/infiltrate. Cardiomegaly.
--- NOTE | 2017-11-14 12:46 | CP.PCM.PN ---
Subjective - Date & Time of Evaluation Date of Evaluation: 11/14/17 Time of Evaluation: 12:45 - Subjective Subjective: Patient is S/P ORIF right hip fracture. Patient is confused and disoriented to place and time. She complains of pain in the right hip but denies having nausea , vomiting, abdominal pain. Objective - Vital Signs/Intake and Output Vital Signs (last 24 hours): Temp Pulse Resp BP Pulse Ox 98.2 F 95 H 20 172/61 H 98 11/14/17 10:35 11/14/17 11:38 11/14/17 10:35 11/14/17 11:38 11/14/17 10:35 Intake and Output: 11/14/17 11/14/17 06:59 18:59 Output Total 100 Balance -100 - Medications Medications: Current Medications Bumetanide (Bumex) 1 mg PO DAILY [facility] Last Admin: 11/14/17 09:38 Dose: 1 mg Diphenhydramine HCl (Benadryl) 25 mg IVP Q6 PRN PRN Reason: Itching / Pruritus Last Admin: 11/11/17 05:55 Dose: 25 mg Duloxetine HCl (Cymbalta) 30 mg PO DAILY [facility] Last Admin: 11/14/17 09:38 Dose: 30 mg Ferrous Sulfate (Feosol) 325 mg PO DAILY [facility] Last Admin: 11/14/17 09:38 Dose: 325 mg Gabapentin (Neurontin) 300 mg PO BID [facility] Last Admin: 11/14/17 09:38 Dose: 300 mg Sodium Chloride (Sodium Chloride 0.9%) 1,000 mls @ 150 mls/hr IV .Q6H40M [facility] Last Admin: 11/14/17 07:42 Dose: 150 mls/hr Aztreonam 1 gm/ Sodium (Chloride) 100 mls @ 100 mls/hr IVPB Q12H [facility] Last Admin: 11/14/17 08:48 Dose: 100 mls/hr Vancomycin HCl (Vancocin 750mg/D5w 150 Ml) 150 mls @ 150 mls/hr IVPB Q12H [facility] Last Admin: 11/14/17 10:04 Dose: 150 mls/hr Insulin Aspart (Novolog) 0 unit SC ACHS [facility] PRN Reason: Protocol Last Admin: 11/14/17 11:36 Dose: 6 unit Insulin Glargine (Lantus) 10 unit SC DAILY [facility] Last Admin: 11/14/17 09:38 Dose: 10 units Lactulose (Enulose) 20 gm PO TID [facility] Last Admin: 11/14/17 09:50 Dose: 20 gm Pantoprazole Sodium (Protonix Inj) 40 mg IVP Q12H [facility] Last Admin: 11/14/17 08:33 Dose: 40 mg Propranolol HCl (Inderal) 10 mg PO BID [facility] Last Admin: 11/14/17 09:38 Dose: 10 mg Rifaximin (Xifaxan) 550 mg PO BID [facility] Last Admin: 11/14/17 09:38 Dose: 550 mg Temazepam (Restoril) 15 mg PO HS [facility] Last Admin: 11/13/17 21:36 Dose: Not Given Vitamin A (Vitamin A & D Oint Ud Foilpak) 1 ea TOP Q4 [facility] Last Admin: 11/14/17 08:33 Dose: 1 ea - Labs Labs: 11/14/17 06:10 11/14/17 06:10 PT 29.9 SECONDS (9.7-12.2) H* D 11/14/17 07:15 INR 2.6 D 11/14/17 07:15 APTT 36 SECONDS (21-34) H 11/14/17 07:15 - Constitutional Appears: In Acute Distress - Head Exam Head Exam: ATRAUMATIC, NORMOCEPHALIC - Eye Exam Eye Exam: EOMI, Scleral icterus - Neck Exam Neck Exam: absent: Lymphadenopathy, Thyromegaly - Respiratory Exam Respiratory Exam: NORMAL BREATHING PATTERN. absent: Rales, Rhonchi, Wheezes - Cardiovascular Exam Cardiovascular Exam: REGULAR RHYTHM, +S1, +S2. absent: Gallop, Rubs, Murmur - GI/Abdominal Exam GI & Abdominal Exam: Soft, Normal Bowel Sounds. absent: Tenderness, Mass, Organomegaly - Rectal Exam Rectal Exam: Deferred Assessment and Plan (1) Cirrhosis Assessment & Plan: Patient is S/P ORIF for right hip fracture. She is currently confused. Today' s lab work shows an increase in WBC to 22,300, platelets to 81,000, PT to 29.9 with INR 2.6 (was 18 and 1.6) and total bilirubin to 9.6 (4.4), while the rest of the LFTs are normal: AST 33, ALT 22, ALKP 81. The jaundice is worse than preoperatively, which may reflect sepsis (in view of elevated WBC) or worsening of liver disease related to anesthestics, hepatic ischemia during surgery, resorption of hematoma, lysis of transfused blood cells. Will check direct bilirubin, trial of vitamin K. Agree with culturing blood, urine. Status: Acute
[2017-11-14] MEDS ORDERED: Phytonadione 10 mg/ml Inj (Adult) SC STA (13:07)
[2017-11-14 14:03] LABS: BASO % 0.1 % (0.0-2.0); EOS % 0.1 % (0.0-4.0); LYMPH % 5.5 % (20.0-40.0); MEAN CORPUSCULAR HGB CONC 33.4 g/dL (33.0-37.0); MEAN PLATELET VOLUME 8.3 fL (7.2-11.7); MONO # 0.9 K/uL (0.0-0.8); NEUT # 16.5 K/uL (1.8-7.0); NEUT % 89.3 % (50.0-75.0); NRBC % 0.2 % (0.0-2.0); PLATELET COUNT 67 K/uL (130-400); RBC 2.26 Mil/uL (3.80-5.20); RED CELL DISTRIBUTION WIDTH 18.1 % (11.5-14.5); WHITE BLOOD COUNT 18.5 K/uL (4.8-10.8)
[2017-11-14 14:10] LABS: MEAN CELL VOLUME 92.9 fL (81.0-99.0)
--- NOTE | 2017-11-14 14:18 | CP.PCM.CON ---
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 0.53 H Venous Blood Potassium 11/14/17 17:37 WBC RBC Hgb Hct MCV MCH MCHC RDW Plt Count MPV Neut % (Auto) Lymph % (Auto) [place] % (Auto) Eos % (Auto) Baso % (Auto) Neut # Lymph # [place] # Eos # Baso # Neutrophils % (Manual) Band Neutrophils % Lymphocytes % (Manual) Reactive Lymphs % Monocytes % (Manual) Platelet Estimate Polychromasia Hypochromasia (manual) Poikilocytosis (manual Basophilic Stippling Anisocytosis (manual) Microcytosis (manual) Macrocytosis (manual) Tear Drop Cells Ovalocytes [place] Cells PT INR APTT pO2 VBG pH VBG pCO2 VBG HCO3 VBG Total CO2 VBG O2 Sat (Calc) VBG Base Excess VBG Potassium Sodium Chloride Glucose Lactate Blood Gas Comments Crit Value Called To Crit Value Called By Crit Value Read Back Blood Gas Notified Time Potassium Carbon Dioxide Anion Gap BUN Creatinine Est GFR ( Amer) Est GFR (Non-Af Amer) POC Glucose (mg/dL) 413 H* Random Glucose Hemoglobin A1c Lactic Acid Calcium Magnesium Total Bilirubin Direct Bilirubin AST ALT Alkaline Phosphatase Ammonia Total Protein Albumin Globulin Albumin/Globulin Ratio Procalcitonin Venous Blood Potassium Attending/Attestation - Attestation I have personally seen and examined this patient.: Yes I have fully participated in the care of the patient.: Yes I have reviewed all pertinent clinical information: Yes Notes (Text): 11/14/17 19:26 I have seen and examined the patient. Medical records, lab studies, and imaging were reviewed by me and a management plan was formulated on multidisciplinary rounds with resident Dr. Tompkins. I agree with their documented assessment and plan. Patient showing signs of sepsis, blood pressure responsive to fluid boluses and fluid resuscitation, f/u lactate. Metabolic encephalopathy secondary to sepsis , more susceptible with chronic liver disease with hyperammonemia, continue lactulose and Rifaximin. Source of sepsis uncertain, broad spectrum coverage, will monitor. Critical Care Time 35 minutes. Multi-disciplinary rounds were performed with house staff, nursing, speech therapy, respiratory therapy, pharmacy and nutrition with integrated input from the primary team/attending and other consulting services. The documented time is cumulative and includes review of patient data/exams/labs/chart review and examination of the patient on rounds and throughout the day; time is exclusive of any procedures or teaching time.
--- NOTE | 2017-11-14 14:32 | PCM.SEPTIC ---
Sepsis Progress Note - Reassessment Type Date of Evaluation: 11/14/17 Time of Evaluation: 11:02 Reassessment Type: Non-invasive reassessment - Non Invasive Reassessment Were the most recent vital sign reviewed: Yes Vital Sign (Latest): Temp Pulse Resp BP Pulse Ox 98.2 F 95 H 20 172/61 H 98 11/14/17 10:35 11/14/17 11:38 11/14/17 10:35 11/14/17 11:38 11/14/17 10:35 Cardiovascular: Yes: Tachycardia Respiratory: Yes: Normal Breath Sounds. No: Accessory Muscle Use, Respiratory Distress Capillary Refill: Normal (Less than 2 sec) Pulses: Normal Radial, Normal Dorsalis Pedis, Normal Posterior Tibialis Skin: Normal Color, Warm Was a passive leg raise performed or was a fluid challenge performed within 6 hrs of the initial fluid bolus: Yes Fluid Challenge performed: Yes
[2017-11-14 14:39] LABS: ANISOCYTOSIS MODERATE; BANDS 20 % (0-2); LYMPHOCYTE 5 % (20-40); MONOCYTE 2 % (0-10); NEUTROPHIL 72 % (50-75); PLATELET ESTIMATE DECREASED (NORMAL); POIKILOCYTOSIS MODERATE; REACTIVE LYMPHOCYTES 1 % (0-0); TOTAL CELLS COUNTED 100
[2017-11-14 14:40] LABS: BURR CELLS SLIGHT; HYPOCHROMIC MODERATE; MICROCYTOSIS SLIGHT; POLYCHROMIC SLIGHT; TEARDROP CELLS SLIGHT
[2017-11-14 14:41] LABS: OVALOCYTES SLIGHT
--- NOTE | 2017-11-14 14:45 | CP.PCM.PN ---
<Stephanie Cazares - Last Filed: 11/14/17 14:33> Subjective - Date & Time of Evaluation Date of Evaluation: 11/14/17 Time of Evaluation: 11:02 - Subjective Subjective: PGY1- House Doctor Note Code Sepsis called Patient seen and examined at bedside. Patient in pain s/p ORIF pinning with trochanteric nail on 11/13/[address] Flynn. Lactate came back at 9.1. Ammonia ordered which came back at 27. WBC 18.5 with 20 bands. Lactate ordered to be rechecked in 3 hours. Procalcitonin ordered. Urine culture and blood culture obtained in am. Patient having minimal urine output through you. Bladder scan done which showed 20cc urine. Morphine 2mg ivp ordered for pain. ICU consult placed and patient transferred to ICU. Objective - Vital Signs/Intake and Output Vital Signs (last 24 hours): Temp Pulse Resp BP Pulse Ox 98.2 F 95 H 20 172/61 H 98 11/14/17 10:35 11/14/17 11:38 11/14/17 10:35 11/14/17 11:38 11/14/17 10:35 Intake and Output: 11/14/17 11/14/17 06:59 18:59 Output Total 100 Balance -100 - Medications Medications: Current Medications Bumetanide (Bumex) 1 mg PO DAILY [facility] Last Admin: 11/14/17 09:38 Dose: 1 mg Diphenhydramine HCl (Benadryl) 25 mg IVP Q6 PRN PRN Reason: Itching / Pruritus Last Admin: 11/11/17 05:55 Dose: 25 mg Duloxetine HCl (Cymbalta) 30 mg PO DAILY [facility] Last Admin: 11/14/17 09:38 Dose: 30 mg Ferrous Sulfate (Feosol) 325 mg PO DAILY [facility] Last Admin: 11/14/17 09:38 Dose: 325 mg Gabapentin (Neurontin) 300 mg PO BID [facility] Last Admin: 11/14/17 09:38 Dose: 300 mg Heparin Sodium (Porcine) (Heparin) 5,000 units SC Q8 [facility] Sodium Chloride (Sodium Chloride 0.9%) 1,000 mls @ 150 mls/hr IV .Q6H40M [facility] Last Admin: 11/14/17 07:42 Dose: 150 mls/hr Aztreonam 1 gm/ Sodium (Chloride) 100 mls @ 100 mls/hr IVPB Q12H [facility] Last Admin: 11/14/17 08:48 Dose: 100 mls/hr Vancomycin HCl (Vancocin 750mg/D5w 150 Ml) 150 mls @ 150 mls/hr IVPB Q12H [facility] Last Admin: 11/14/17 10:04 Dose: 150 mls/hr Insulin Aspart (Novolog) 0 unit SC ACHS [facility] PRN Reason: Protocol Last Admin: 11/14/17 11:36 Dose: 6 unit Insulin Glargine (Lantus) 10 unit SC DAILY [facility] Last Admin: 11/14/17 09:38 Dose: 10 units Ketorolac Tromethamine (Toradol) 30 mg IVP Q6 PRN PRN Reason: Pain, moderate (4-7) Lactulose (Enulose) 20 gm PO TID [facility] Last Admin: 11/14/17 09:50 Dose: 20 gm Pantoprazole Sodium (Protonix Inj) 40 mg IVP Q12H [facility] Last Admin: 11/14/17 08:33 Dose: 40 mg Propranolol HCl (Inderal) 10 mg PO BID [facility] Last Admin: 11/14/17 09:38 Dose: 10 mg Rifaximin (Xifaxan) 550 mg PO BID [facility] Last Admin: 11/14/17 09:38 Dose: 550 mg Temazepam (Restoril) 15 mg PO HS [facility] Last Admin: 11/13/17 21:36 Dose: Not Given Vitamin A (Vitamin A & D Oint Ud Foilpak) 1 ea TOP Q4 [facility] Last Admin: 11/14/17 08:33 Dose: 1 ea - Labs Labs: 11/14/17 13:33 11/14/17 06:10 PT 29.9 SECONDS (9.7-12.2) H* D 11/14/17 07:15 INR 2.6 D 11/14/17 07:15 APTT 36 SECONDS (21-34) H 11/14/17 07:15 - Constitutional Appears: In Acute Distress - Head Exam Head Exam: ATRAUMATIC, NORMAL INSPECTION, NORMOCEPHALIC - Eye Exam Eye Exam: EOMI, Normal appearance - Respiratory Exam Respiratory Exam: Clear to Ausculation Bilateral, NORMAL BREATHING PATTERN - Cardiovascular Exam Cardiovascular Exam: Tachycardia - GI/Abdominal Exam GI & Abdominal Exam: Soft - Neurological Exam Neurological Exam: Alert, Awake. absent: Oriented x3 - Psychiatric Exam Psychiatric exam: Anxious - Skin Skin Exam: Normal Color, Warm <WettimunyEdgardo - Last Filed: 11/14/17 18:20> Objective - Vital Signs/Intake and Output Vital Signs (last 24 hours): Temp Pulse Resp BP Pulse Ox 98.2 F 83 13 172/61 H 100 11/14/17 10:35 11/14/17 16:02 11/14/17 16:02 11/14/17 11:38 11/14/17 16:02 Intake and Output: 11/14/17 11/14/17 06:59 18:59 Intake Total 2150 Output Total 100 15 Balance -100 2135 - Medications Medications: Current Medications Bumetanide (Bumex) 1 mg PO DAILY [facility] Last Admin: 11/14/17 09:38 Dose: 1 mg Diphenhydramine HCl (Benadryl) 25 mg IVP Q6 PRN PRN Reason: Itching / Pruritus Last Admin: 11/11/17 05:55 Dose: 25 mg Duloxetine HCl (Cymbalta) 30 mg PO DAILY [facility] Last Admin: 11/14/17 09:38 Dose: 30 mg Ferrous Sulfate (Feosol) 325 mg PO DAILY [facility] Last Admin: 11/14/17 09:38 Dose: 325 mg Gabapentin (Neurontin) 300 mg PO BID [facility] Last Admin: 11/14/17 17:59 Dose: 300 mg Heparin Sodium (Porcine) (Heparin) 5,000 units SC Q8 [facility] Last Admin: 11/14/17 13:58 Dose: 5,000 units Sodium Chloride (Sodium Chloride 0.9%) 1,000 mls @ 150 mls/hr IV .Q6H40M [facility] Last Admin: 11/14/17 18:08 Dose: 150 mls/hr Aztreonam 1 gm/ Sodium (Chloride) 100 mls @ 100 mls/hr IVPB Q12H [facility] Last Admin: 11/14/17 08:48 Dose: 100 mls/hr Vancomycin HCl (Vancocin 750mg/D5w 150 Ml) 150 mls @ 150 mls/hr IVPB Q12H [facility] Last Admin: 11/14/17 10:04 Dose: 150 mls/hr Insulin Aspart (Novolog) 0 unit SC ACHS [facility] PRN Reason: Protocol Last Admin: 11/14/17 18:00 Dose: 6 unit Insulin Glargine (Lantus) 10 unit SC DAILY [facility] Last Admin: 11/14/17 09:38 Dose: 10 units Ketorolac Tromethamine (Toradol) 30 mg IVP Q6 PRN PRN Reason: Pain, moderate (4-7) Lactulose (Enulose) 20 gm PO TID [facility] Last Admin: 11/14/17 17:59 Dose: 20 gm Pantoprazole Sodium (Protonix Inj) 40 mg IVP Q12H [facility] Last Admin: 11/14/17 08:33 Dose: 40 mg Propranolol HCl (Inderal) 10 mg PO BID [facility] Last Admin: 11/14/17 18:10 Dose: 10 mg Rifaximin (Xifaxan) 550 mg PO BID [facility] Last Admin: 11/14/17 18:10 Dose: 550 mg Temazepam (Restoril) 15 mg PO HS [facility] Last Admin: 11/13/17 21:36 Dose: Not Given Vitamin A (Vitamin A & D Oint Ud Foilpak) 1 ea TOP Q4 [facility] Last Admin: 11/14/17 17:59 Dose: 1 ea - Labs Labs: 11/14/17 13:33 11/14/17 06:10 PT 29.9 SECONDS (9.7-12.2) H* D 11/14/17 07:15 INR 2.6 D 11/14/17 07:15 APTT 36 SECONDS (21-34) H 11/14/17 07:15 Attending/Attestation - Attestation I have personally seen and examined this patient.: Yes I have fully participated in the care of the patient.: Yes I have reviewed all pertinent clinical information, including history, physical exam and plan: Yes Notes (Text): 11/14/17 18:20 I have seen and examined the patient. Medical records, lab studies, and imaging were reviewed by me and a management plan was formulated on multidisciplinary rounds with resident Dr. Tompkins. I agree with their documented assessment and plan. Patient showing signs of sepsis, blood pressure responsive to fluid boluses and fluid resuscitation, f/u lactate. Metabolic encephalopathy secondary to sepsis , more susceptible with chronic liver disease with hyperammonemia, continue lactulose and Rifaximin. Source of sepsis uncertain, broad spectrum coverage, will monitor. Critical Care Time 35 minutes. Multi-disciplinary rounds were performed with house staff, nursing, speech therapy, respiratory therapy, pharmacy and nutrition with integrated input from the primary team/attending and other consulting services. The documented time is cumulative and includes review of patient data/exams/labs/chart review and examination of the patient on rounds and throughout the day; time is exclusive of any procedures or teaching time. <Saskia Denney V - Last Filed: 11/14/17 19:48> Objective - Vital Signs/Intake and Output Vital Signs (last 24 hours): Temp Pulse Resp BP Pulse Ox 98.2 F 79 15 132/48 L 100 11/14/17 10:35 11/14/17 18:23 11/14/17 17:53 11/14/17 18:23 11/14/17 18:23 Intake and Output: 11/14/17 11/15/17 18:59 06:59 Intake Total 2450 Output Total 70 Balance 2380 - Medications Medications: Current Medications Bumetanide (Bumex) 1 mg PO DAILY [facility] Last Admin: 11/14/17 09:38 Dose: 1 mg Diphenhydramine HCl (Benadryl) 25 mg IVP Q6 PRN PRN Reason: Itching / Pruritus Last Admin: 11/11/17 05:55 Dose: 25 mg Duloxetine HCl (Cymbalta) 30 mg PO DAILY [facility] Last Admin: 11/14/17 09:38 Dose: 30 mg Ferrous Sulfate (Feosol) 325 mg PO DAILY [facility] Last Admin: 11/14/17 09:38 Dose: 325 mg Gabapentin (Neurontin) 300 mg PO BID [facility] Last Admin: 11/14/17 17:59 Dose: 300 mg Sodium Chloride (Sodium Chloride 0.9%) 1,000 mls @ 150 mls/hr IV .Q6H40M [facility] Last Admin: 11/14/17 18:08 Dose: 150 mls/hr Aztreonam 1 gm/ Sodium (Chloride) 100 mls @ 100 mls/hr IVPB Q12H [facility] Last Admin: 11/14/17 08:48 Dose: 100 mls/hr Vancomycin HCl (Vancocin 750mg/D5w 150 Ml) 150 mls @ 150 mls/hr IVPB Q12H [facility] Last Admin: 11/14/17 10:04 Dose: 150 mls/hr Insulin Aspart (Novolog) 0 unit SC ACHS [facility] PRN Reason: Protocol Last Admin: 11/14/17 18:00 Dose: 6 unit Insulin Glargine (Lantus) 10 unit SC DAILY [facility] Last Admin: 11/14/17 09:38 Dose: 10 units Ketorolac Tromethamine (Toradol) 30 mg IVP Q6 PRN PRN Reason: Pain, moderate (4-7) Lactulose (Enulose) 20 gm PO TID [facility] Last Admin: 11/14/17 17:59 Dose: 20 gm Pantoprazole Sodium (Protonix Inj) 40 mg IVP Q12H [facility] Last Admin: 11/14/17 08:33 Dose: 40 mg Phytonadione (Vitamin K Inj) 10 mg IV STAT STA Stop: 11/14/17 19:18 Propranolol HCl (Inderal) 10 mg PO BID [facility] Last Admin: 11/14/17 18:10 Dose: 10 mg Rifaximin (Xifaxan) 550 mg PO BID [facility] Last Admin: 11/14/17 18:10 Dose: 550 mg Temazepam (Restoril) 15 mg PO HS [facility] Last Admin: 11/13/17 21:36 Dose: Not Given Vitamin A (Vitamin A & D Oint Ud Foilpak) 1 ea TOP Q4 [facility] Last Admin: 11/14/17 17:59 Dose: 1 ea - Labs Labs: 11/14/17 13:33 11/14/17 06:10 PT 29.9 SECONDS (9.7-12.2) H* D 11/14/17 07:15 INR 2.6 D 11/14/17 07:15 APTT 36 SECONDS (21-34) H 11/14/17 07:15 Attending/Attestation - Attestation I have personally seen and examined this patient.: Yes Notes (Text): Brief Hospitalist Note: Responded to Code Sepsis this AM. Patient underwent ORIF pinning with trochanteric nail postoperative day 1. Patient with history of hepatitis C, pancytopenia s/p Granix (11/13/16), cirrhosis , portal hypertension, hx of rectal bleeds, and possible hepatic encephalopathy per review of EMR. Patient received Aztreonam 1gram IV and Vancomycin IV this AM. ID on board. Blood and urine studies ordered. Recommend repeat chest xray in light of recent surgery. Repeat lactate level. patient is tachycardia, hypertensive at bedside. Patient present with elevated white count, 24 bandemia, thrombocytopenic, anemic , elevated INR, Lactate 9.1 which uptrended from 5.1. Recommend to order procalcitonin, ammonia collected. Patient started on IV fluids this morning however at bedside, patient's urine output has been only 20ML. Patient has had echocardiogram for preoperative clearance noted to have normal left ventricular function, calcification of aortic valve but no aortic stenosis per cardiology. Patient to receive 2 liters of saline per code sepsis guideline. Bladder scan performed at bedside, patient is not in retention in light of high lactate and minimal urine output which are concerning. Patient prior to OR had received Granix and per discussion with staff, had received crycopreciptate, platelet transfusion, and FFP prior to surgery yesterday. Hemoglobin from 9.3 to 8.5 postop day 1 and platelets improved from 27 to 81. Patient is jaundice, speak groaning in pain, noted lethargic previously on Dilaudid but no pain medication on board in light of hip surgery, tachycardia, edematous upper extremities; right hip: no apparent ecchomyoses, dressing clean dry intact. Patient given Morphine 2mg IV X1 dose. EKG shows tachycardia 105. Discussed with ICU, given patient has minimal output following recent orthopedic procedure in light of sepsis, worsening mental status, with history of known liver cirrhosis, hepatitis C, and prone to bleeding, patient transferred to ICU. Primary attending: Dr Juana Coronado made aware.
[2017-11-14 14:47] LABS: ALBUMIN 1.9 g/dL (3.5-5.0)
[2017-11-14 15:00] LABS: BILIRUBIN,DIRECT 3.3 mg/dL (0.0-0.4)
--- NOTE | 2017-11-14 19:05 | PCM.SURG1 ---
Surgeon's Initial Post Op Note - Surgeon's Notes Surgeon: Mehdi Flynn MD Induction Furnace Operator: Venu Arteaga MD Type of Anesthesia: General Endo Pre-Operative Diagnosis: Right hip displaced intertrochanteric hip fracture Operative Findings: Right hip displaced intertrochanteric hip fracture Post-Operative Diagnosis: Right hip displaced intertrochanteric hip fracture Operation Performed: Right hip IT fracture closed reduction and internal fixation with intramedullary hip nail Specimen/Specimens Removed: specimen= none. complications= none. implants= Synthes short TFNa, 10mm diam, 85 mm helical blade, interlocking screw Estimated Blood Loss: EBL {In ML}: 200 Blood Products Given: N/A, PRBC, FFP, Platlets Drains Used: No Drains Post-Op Condition: Good Date of Surgery/Procedure: 11/13/17 Time of Surgery/Procedure: 17:00
--- NOTE | 2017-11-14 19:24 | CP.PCM.PN ---
Subjective - Date & Time of Evaluation Date of Evaluation: 11/14/17 Time of Evaluation: 13:20 - Subjective Subjective: clinically same Objective - Vital Signs/Intake and Output Vital Signs (last 24 hours): Temp Pulse Resp BP Pulse Ox 98.2 F 79 15 132/48 L 100 11/14/17 10:35 11/14/17 18:23 11/14/17 17:53 11/14/17 18:23 11/14/17 18:23 Intake and Output: 11/14/17 11/15/17 18:59 06:59 Intake Total 2450 Output Total 70 Balance 2380 - Medications Medications: Current Medications Bumetanide (Bumex) 1 mg PO DAILY [facility] Last Admin: 11/14/17 09:38 Dose: 1 mg Diphenhydramine HCl (Benadryl) 25 mg IVP Q6 PRN PRN Reason: Itching / Pruritus Last Admin: 11/11/17 05:55 Dose: 25 mg Duloxetine HCl (Cymbalta) 30 mg PO DAILY [facility] Last Admin: 11/14/17 09:38 Dose: 30 mg Ferrous Sulfate (Feosol) 325 mg PO DAILY [facility] Last Admin: 11/14/17 09:38 Dose: 325 mg Gabapentin (Neurontin) 300 mg PO BID [facility] Last Admin: 11/14/17 17:59 Dose: 300 mg Sodium Chloride (Sodium Chloride 0.9%) 1,000 mls @ 150 mls/hr IV .Q6H40M [facility] Last Admin: 11/14/17 18:08 Dose: 150 mls/hr Aztreonam 1 gm/ Sodium (Chloride) 100 mls @ 100 mls/hr IVPB Q12H [facility] Last Admin: 11/14/17 08:48 Dose: 100 mls/hr Vancomycin HCl (Vancocin 750mg/D5w 150 Ml) 150 mls @ 150 mls/hr IVPB Q12H [facility] Last Admin: 11/14/17 10:04 Dose: 150 mls/hr Insulin Aspart (Novolog) 0 unit SC ACHS [facility] PRN Reason: Protocol Last Admin: 11/14/17 18:00 Dose: 6 unit Insulin Glargine (Lantus) 10 unit SC DAILY [facility] Last Admin: 11/14/17 09:38 Dose: 10 units Ketorolac Tromethamine (Toradol) 30 mg IVP Q6 PRN PRN Reason: Pain, moderate (4-7) Lactulose (Enulose) 20 gm PO TID [facility] Last Admin: 11/14/17 17:59 Dose: 20 gm Pantoprazole Sodium (Protonix Inj) 40 mg IVP Q12H [facility] Last Admin: 11/14/17 08:33 Dose: 40 mg Phytonadione (Vitamin K Inj) 10 mg IV STAT [facility] Stop: 11/14/17 19:18 Propranolol HCl (Inderal) 10 mg PO BID [facility] Last Admin: 11/14/17 18:10 Dose: 10 mg Rifaximin (Xifaxan) 550 mg PO BID [facility] Last Admin: 11/14/17 18:10 Dose: 550 mg Temazepam (Restoril) 15 mg PO HS [facility] Last Admin: 11/13/17 21:36 Dose: Not Given Vitamin A (Vitamin A & D Oint Ud Foilpak) 1 ea TOP Q4 [facility] Last Admin: 11/14/17 17:59 Dose: 1 ea - Labs Labs: 11/14/17 13:33 11/14/17 06:10 PT 29.9 SECONDS (9.7-12.2) H* D 11/14/17 07:15 INR 2.6 D 11/14/17 07:15 APTT 36 SECONDS (21-34) H 11/14/17 07:15
[2017-11-14] MEDS ORDERED: Phytonadione 10 mg/ml Inj (Adult) IV STA ×2 (19:45→21:44)
[2017-11-15 00:09] LABS: ARTERIAL BLOOD GAS O2 SAT 100.5 % (95-98); ARTERIAL BLOOD GAS PCO2 41 mm/Hg (35-45); ARTERIAL BLOOD GAS PH 7.43 (7.35-7.45); ARTERIAL BLOOD GAS PO2 93 mm/Hg (80-100); ARTERIAL BLOOD GAS TCO2 28.5 mmol/L (22-28)
[2017-11-15] MEDS ORDERED: (Novolin R) Insulin Human Regular 100 units/ml vial IV ONE (00:23)
--- NOTE | 2017-11-15 00:42 | RAD ---
EXAM: XR Chest, 1 View CLINICAL HISTORY: 72 years old, female; Signs and symptoms; Shortness of breath; Additional info: Hypoxia TECHNIQUE: Frontal view of the chest. COMPARISON: No relevant prior studies available. FINDINGS: Lungs: Low level of inspiratory effort causing crowding of bronchovascular markings, limiting evaluation. No definite focal consolidation. Pleural space: No acute abnormality as visualized. No pneumothorax. Heart/mediastinum: No acute abnormality as visualized. No cardiomegaly. IMPRESSION: Low level of inspiratory effort causing crowding of bronchovascular markings, limiting evaluation. No definitive plain film evidence of acute cardiopulmonary process. Correlate clinically. Followup as warranted.
[2017-11-15 00:48] LABS: BASO % 0.3 % (0.0-2.0); EOS % 0.2 % (0.0-4.0); LYMPH # 1.2 K/uL (1.0-4.3); MEAN CELL VOLUME 92.7 fL (81.0-99.0); MEAN CORPUSCULAR HGB CONC 34.6 g/dL (33.0-37.0); MEAN PLATELET VOLUME 10.5 fL (7.2-11.7); MONO # 0.5 K/uL (0.0-0.8); MONO % 3.9 % (0.0-10.0); NEUT # 11.4 K/uL (1.8-7.0); NEUT % 86.6 % (50.0-75.0); NRBC % 0.5 % (0.0-2.0); RBC 2.01 Mil/uL (3.80-5.20); RED CELL DISTRIBUTION WIDTH 20.4 % (11.5-14.5); WHITE BLOOD COUNT 13.2 K/uL (4.8-10.8)
[2017-11-15 00:54] LABS: HEMOGLOBIN 6.4 g/dL (11.0-16.0); PLATELET COUNT 5 K/uL (130-400)
[2017-11-15 00:58] LABS: ALB/GLOB RATIO 0.9 (1.0-2.1); CALCIUM 7.5 mg/dl (8.6-10.4); MAGNESIUM 1.4 mg/dL (1.6-2.3)
[2017-11-15 02:40] LABS: BANDS 5 % (0-2); LYMPHOCYTE 4 % (20-40); MONOCYTE 2 % (0-10); NEUTROPHIL 89 % (50-75); PLATELET ESTIMATE MARKEDLY DECREASED (NORMAL); TOTAL CELLS COUNTED 100
[2017-11-15 02:41] LABS: ANISOCYTOSIS MODERATE; OVALOCYTES SLIGHT; POLYCHROMIC MODERATE; TEARDROP CELLS SLIGHT
[2017-11-15] MEDS: Vitamins A & D Oint UD Foilpak TOP SCH ×6 (04:00→20:40)
[2017-11-15] MEDS ORDERED: Iodixanol 320 MG/ML 100 ML BOTTLE IV ONE (04:18)
--- NOTE | 2017-11-15 05:46 | CT ---
EXAM: CT Head Without Intravenous Contrast CLINICAL HISTORY: 72 years old, female; Signs and symptoms; Other: Lethargy TECHNIQUE: Axial computed tomography images of the head/brain without intravenous contrast. All CT scans at this facility use one or more dose reduction techniques, viz.: automated exposure control; ma/kV adjustment per patient size (including targeted exams where dose is matched to indication; i.e. head); or iterative reconstruction technique. Coronal and sagittal reformatted images were created and reviewed. COMPARISON: No relevant prior studies available. FINDINGS: Brain: Moderate atrophy. No intracranial hemorrhage. No mass. Few scattered foci of decreased attenuation within periventricular/subcortical white matter. No definite edema. Ventricles: No hydrocephalus. Bones/joints: No acute fracture. Soft tissues: Unremarkable. Vasculature: Atherosclerotic disease of intracranial arteries. Sinuses: No acute sinusitis. Mastoid air cells: No mastoid effusion. Orbits: Unremarkable as visualized. IMPRESSION: 1. Nonspecific white matter changes. Acute infarction may be CT occult within first 24 hours. If a focal deficit persists, consider followup CT or MRI for further evaluation. 2. Incidental/non-acute findings are described above.
[2017-11-15 05:47] LABS: HEMOGLOBIN 7.4 g/dL (11.0-16.0); MEAN CELL VOLUME 92.6 fL (81.0-99.0); MEAN CORPUSCULAR HEMOGLOBIN 32.2 pg (27.0-31.0); MEAN CORPUSCULAR HGB CONC 34.8 g/dL (33.0-37.0); MEAN PLATELET VOLUME 8.4 fL (7.2-11.7); RBC 2.28 Mil/uL (3.80-5.20); RED CELL DISTRIBUTION WIDTH 17.1 % (11.5-14.5); WHITE BLOOD COUNT 8.8 K/uL (4.8-10.8)
[2017-11-15 05:54] LABS: MAGNESIUM 1.3 mg/dL (1.6-2.3)
--- NOTE | 2017-11-15 05:57 | CP.PCM.PN ---
Subjective - Date & Time of Evaluation Date of Evaluation: 11/15/17 Time of Evaluation: 05:49 - Subjective Subjective: Got CTA of chest abd/pelvis, including the thigh, Head without contrast, pending reports in my review CTA no major vessel pe, b/l atelectesis noticed, significant splenomegaly, significant whole body anasarca including the legs, no collection hematoma noticed in right leg, but suspect oozing and muscular edema. Head CT no bleeding Assessment Suspect cause of hypoxia from atelectesis, lethargy No clear hematoma but drop in hemoglobin and plt suspect 3 components oozing at surgical site, splenic sequestration, anasarca and hemodiluation Plan Continue PRBC, Cryopricipitate x2, platelates as soon as available 18G right EJ line inserted for blood products Aggressive diuresis Repeat labs f/u CT reports for radiology as well. Objective - Vital Signs/Intake and Output Vital Signs (last 24 hours): Temp Pulse Resp BP Pulse Ox 97.6 F 64 20 145/61 100 11/15/17 04:15 11/15/17 04:15 11/15/17 04:15 11/15/17 04:15 11/15/17 02:10 Intake and Output: 11/14/17 11/15/17 18:59 06:59 Intake Total 2450 1275 Output Total 70 170 Balance 2380 1105 - Medications Medications: Current Medications Bumetanide (Bumex) 1 mg PO DAILY [facility] Last Admin: 11/14/17 09:38 Dose: 1 mg Diphenhydramine HCl (Benadryl) 25 mg IVP Q6 PRN PRN Reason: Itching / Pruritus Last Admin: 11/11/17 05:55 Dose: 25 mg Duloxetine HCl (Cymbalta) 30 mg PO DAILY [facility] Last Admin: 11/14/17 09:38 Dose: 30 mg Ferrous Sulfate (Feosol) 325 mg PO DAILY [facility] Last Admin: 11/14/17 09:38 Dose: 325 mg Gabapentin (Neurontin) 300 mg PO BID [facility] Last Admin: 11/14/17 17:59 Dose: 300 mg Sodium Chloride (Sodium Chloride 0.9%) 1,000 mls @ 150 mls/hr IV .Q6H40M [facility] Last Admin: 11/14/17 22:24 Dose: Not Given Aztreonam 1 gm/ Sodium (Chloride) 100 mls @ 100 mls/hr IVPB Q12H [facility] Last Admin: 11/14/17 20:00 Dose: 100 mls/hr Vancomycin HCl (Vancocin 750mg/D5w 150 Ml) 150 mls @ 150 mls/hr IVPB Q12H [facility] Last Admin: 11/14/17 22:00 Dose: 150 mls/hr Insulin Aspart (Novolog) 0 unit SC ACHS IN[facility] PRN Reason: Protocol Last Admin: 11/14/17 22:15 Dose: 3 unit Insulin Glargine (Lantus) 10 unit SC DAILY [facility] Last Admin: 11/14/17 09:38 Dose: 10 units Ketorolac Tromethamine (Toradol) 30 mg IVP Q6 PRN PRN Reason: Pain, moderate (4-7) Lactulose (Enulose) 20 gm PO TID [facility] Last Admin: 11/14/17 17:59 Dose: 20 gm Pantoprazole Sodium (Protonix Inj) 40 mg IVP Q12H [facility] Last Admin: 11/14/17 22:00 Dose: 40 mg Propranolol HCl (Inderal) 10 mg PO BID [facility] Last Admin: 11/14/17 18:10 Dose: 10 mg Rifaximin (Xifaxan) 550 mg PO BID [facility] Last Admin: 11/14/17 18:10 Dose: 550 mg Temazepam (Restoril) 15 mg PO HS [facility] Last Admin: 11/14/17 22:35 Dose: 15 mg Vitamin A (Vitamin A & D Oint Ud Foilpak) 1 ea TOP Q4 [facility] Last Admin: 11/14/17 20:00 Dose: 1 ea - Labs Labs: 11/15/17 00:23 11/15/17 00:23 PT 29.9 SECONDS (9.7-12.2) H* D 11/14/17 07:15 INR 2.6 D 11/14/17 07:15 APTT 36 SECONDS (21-34) H 11/14/17 07:15
--- NOTE | 2017-11-15 06:09 | CT ---
EXAM: CT Angiography Chest With Intravenous Contrast CLINICAL HISTORY: 72 years old, female; Signs and symptoms; Shortness of breath; Additional info: Hypoxia. Scanned through thigh as per ordering doctor TECHNIQUE: Axial computed tomographic angiography images of the chest with intravenous contrast using pulmonary embolism protocol. All CT scans at this facility use one or more dose reduction techniques, viz.: automated exposure control; ma/kV adjustment per patient size (including targeted exams where dose is matched to indication; i.e. head); or iterative reconstruction technique. MIP reconstructed images were created and reviewed. Coronal and sagittal reformatted images were created and reviewed. CONTRAST: 100 mL of [id number] administered intravenously. COMPARISON: No relevant prior studies available. FINDINGS: Limitations: Motion artifact - mild. Pulmonary arteries: No definite pulmonary embolism. Aorta: Mild atherosclerotic disease of aorta. No aneurysm. Lungs: Mild peripheral consolidation with associated volume loss within RIGHT lower lobe. Moderate peripheral consolidation with associated volume loss within LEFT lower lobe. Minimal peripheral consolidation within LEFT upper lobe. Pleural space: Small LEFT pleural effusion. No pneumothorax. Heart: Borderline cardiomegaly. No significant pericardial effusion. Coronary artery calcifications. Mediastinum: Small hiatal hernia. Bones/joints: Few healing rib fractures. Degenerative changes of spine. Soft tissues: Mild stranding within subcutaneous tissues. Lymph nodes: No pathologically enlarged lymph nodes. IMPRESSION: 1. No definite CT evidence of pulmonary embolism. 2. Bibasilar atelectasis. Superimposed pneumonia not excluded. 3. Mild anasarca. 4. Incidental/non-acute findings are described above. EXAM: CT Angiography Abdomen and Pelvis With Intravenous Contrast CLINICAL HISTORY: 72 years old, female; Signs and symptoms; Shortness of breath; Additional info: Hypoxia. Scanned through thigh as per ordering doctor TECHNIQUE: Axial computed tomographic angiography images of the abdomen and pelvis with intravenous contrast. All CT scans at this facility use one or more dose reduction techniques, viz.: automated exposure control; ma/kV adjustment per patient size (including targeted exams where dose is matched to indication; i.e. head); or iterative reconstruction technique. MIP reconstructed images were created and reviewed. Coronal and sagittal reformatted images were created and reviewed. CONTRAST: 100 mL of [id number] administered intravenously. COMPARISON: No relevant prior studies available. FINDINGS: Limitations: Motion artifact - mild. VASCULATURE: Aorta: [id number] atherosclerotic disease. No aneurysm. Celiac trunk and mesenteric arteries: Mild atherosclerotic disease of superior mesenteric artery. Mild ostial stenosis of superior mesenteric artery. Renal arteries: Mild atherosclerotic disease of renal arteries. Moderate ostial stenosis of right renal artery. Iliac arteries: Mild atherosclerotic disease of iliac arteries. No significant stenosis or occlusion. Other vasculature: 2.4 x 2.2 x 2.1 cm splenic artery aneurysm. ABDOMEN: Liver: Unremarkable. No mass. Gallbladder and bile ducts: Cholecystectomy. No significant ductal dilation. Pancreas: Apparent mild haziness about head of pancreas. No ductal dilation. Spleen: Mild to moderate splenomegaly. Adrenals: Unremarkable. No mass. Kidneys and ureters: No mass. No hydronephrosis. Stomach and bowel: Fluid/loose stool within RIGHT colon. No definite neural thickening. No obstruction. Appendix: No definite findings to suggest acute appendicitis. PELVIS: Bladder: George catheter. Reproductive: Unremarkable as visualized. ABDOMEN and PELVIS: Intraperitoneal space: Trace free fluid within abdomen. Small free fluid within pelvis. No free air. Bones/joints: Degenerative changes of spine. Postsurgical changes of right femur. 1 Soft tissues: Moderate to extensive stranding throughout subcutaneous tissues. Lymph nodes: No pathologically enlarged lymph nodes. IMPRESSION: 1. Fluid/loose stool within bowel may suggest diarrhea illness. 2. Apparent mild haziness about pancreas. Correlate with amylase/lipase levels. 3. Moderate to extensive anasarca. 4. Incidental/non-acute findings are described above.
[2017-11-15 06:10] LABS: ALB/GLOB RATIO 0.9 (1.0-2.1); CALCIUM 7.9 mg/dl (8.6-10.4)
[2017-11-15] MEDS: Sodium Chloride 0.9% 1,000 ML IV SCH (07:51)
[2017-11-15] MEDS: (Novolog) Insulin Aspart, Recombinant 100 u/ml 10 ml vial SC SCH ×4 (08:29→22:01)
[2017-11-15] MEDS: Aztreonam 1 GM in Sodium Chloride 0.9% 100 ML IVPB SCH ×2 (08:29→20:00)
[2017-11-15] MEDS: Vancomycin 750mg/D5W 150 ml 150 ML IVPB SCH ×2 (09:11→22:00)
[2017-11-15 09:14] LABS: URINE BILIRUBIN NEGATIVE (NEGATIVE); URINE CLARITY CLEAR (Clear); URINE COLOR YELLOW (YELLOW); URINE GLUCOSE (UA) 2+ mg/dL (Normal)
[2017-11-15 09:15] LABS: URINE BLOOD NEGATIVE (NEGATIVE); URINE LEUKOCYTE ESTERASE NEG Leu/uL (Negative); URINE NITRATE NEGATIVE (NEGATIVE); URINE PROTEIN NEGATIVE (NEGATIVE); URINE UROBILINOGEN Normal mg/dL (0.2-1.0)
[2017-11-15 09:18] LABS: SQUAMOUS EPITHIAL 1 /hpf (0-5); URINE BACTERIA RARE (<OCC)
[2017-11-15] MEDS ORDERED: Magnesium Sulfate 1 gm in D5W 1 GM/100 ML BAG IVPB ONE (11:20)
[2017-11-15] MEDS ORDERED: Albumin Human 5% (12.5 gm/250 ml) IV ONE (11:31)
--- NOTE | 2017-11-15 13:37 | CP.PCM.PN ---
Subjective - Date & Time of Evaluation Date of Evaluation: 11/15/17 Time of Evaluation: 13:35 - Subjective Subjective: CC: Follow up cirrhosis In ICU, post operative ORIF Lethargic. Not on pressors. Blood products given for anemia and coagulopathy Bilirubin elevated. Not getting PO meds reliably Objective - Vital Signs/Intake and Output Vital Signs (last 24 hours): Temp Pulse Resp BP Pulse Ox 97.7 F 72 15 122/48 L 95 11/15/17 12:16 11/15/17 13:01 11/15/17 13:01 11/15/17 13:01 11/15/17 13:01 Intake and Output: 11/15/17 11/15/17 06:59 18:59 Intake Total 1735 839 Output Total 770 600 Balance 965 239 - Medications Medications: Current Medications Albuterol/Ipratropium (Duoneb 3 Mg/0.5 Mg (3 Ml) Ud) 3 ml INH RQ6 INDR[facility] Bumetanide (Bumex) 1 mg PO DAILY [facility] Last Admin: 11/14/17 09:38 Dose: 1 mg Diphenhydramine HCl (Benadryl) 25 mg IVP Q6 PRN PRN Reason: Itching / Pruritus Last Admin: 11/11/17 05:55 Dose: 25 mg Duloxetine HCl (Cymbalta) 30 mg PO DAILY [facility] Last Admin: 11/14/17 09:38 Dose: 30 mg Ferrous Sulfate (Feosol) 325 mg PO DAILY [facility] Last Admin: 11/14/17 09:38 Dose: 325 mg Gabapentin (Neurontin) 300 mg PO BID [facility] Last Admin: 11/15/17 11:48 Dose: Not Given Aztreonam 1 gm/ Sodium (Chloride) 100 mls @ 100 mls/hr IVPB Q12H [facility] Last Admin: 11/15/17 08:29 Dose: 100 mls/hr Vancomycin HCl (Vancocin 750mg/D5w 150 Ml) 150 mls @ 150 mls/hr IVPB Q12H [facility] Last Admin: 11/15/17 09:11 Dose: 150 mls/hr Insulin Aspart (Novolog) 0 unit SC ACHS [facility] PRN Reason: Protocol Last Admin: 11/15/17 11:45 Dose: 12 unit Insulin Glargine (Lantus) 10 unit SC DAILY [facility] Last Admin: 11/14/17 09:38 Dose: 10 units Lactulose (Enulose) 20 gm PO TID [facility] Last Admin: 11/15/17 11:48 Dose: Not Given Pantoprazole Sodium (Protonix Inj) 40 mg IVP Q12H [facility] Last Admin: 11/15/17 08:34 Dose: 40 mg Propranolol HCl (Inderal) 10 mg PO BID [facility] Last Admin: 11/15/17 11:48 Dose: Not Given Rifaximin (Xifaxan) 550 mg PO BID [facility] Last Admin: 11/15/17 11:48 Dose: Not Given Temazepam (Restoril) 15 mg PO HS [facility] Last Admin: 11/14/17 22:35 Dose: 15 mg Vitamin A (Vitamin A & D Oint Ud Foilpak) 1 ea TOP Q4 [facility] Last Admin: 11/15/17 08:34 Dose: 1 ea - Labs Labs: 11/15/17 05:28 11/15/17 05:28 PT 29.9 SECONDS (9.7-12.2) H* D 11/14/17 07:15 INR 2.6 D 11/14/17 07:15 APTT 37 SECONDS (21-34) H 11/15/17 05:28 - Constitutional Appears: Confused, Chronically Ill - Eye Exam Eye Exam: Scleral icterus - Neck Exam Neck Exam: Normal Inspection - Respiratory Exam Respiratory Exam: NORMAL BREATHING PATTERN - Cardiovascular Exam Cardiovascular Exam: REGULAR RHYTHM - GI/Abdominal Exam GI & Abdominal Exam: Soft. absent: Tenderness, Mass - Extremities Exam Extremities Exam: Pedal Edema - Neurological Exam Additional comments: Lethargic but arousable - Skin Skin Exam: Petechiae Assessment and Plan (1) Closed displaced intertrochanteric fracture of right femur Assessment & Plan: S/P ORIF Status: Acute (2) Anemia Assessment & Plan: Chronic pancytopenia with superimposed blood losses/ hematoma. No overt GI bleeding Status: Acute (3) Cirrhosis Assessment & Plan: Chronic Cirrhosis with portal hypertension, now encephalopathic. Not getting meds reliably. IRec: Consider Lactulose via enema (I ordered it 2 days ago but it is now ordered PO instead) Status: Acute (4) Coagulopathy Assessment & Plan: Hematology management Status: Acute (5) Hepatic encephalopathy Assessment & Plan: As above Status: Acute
[2017-11-15] MEDS: (Lantus) Insulin Glargine, Recombinant SC SCH ×2 (16:06→16:26)
--- NOTE | 2017-11-15 16:29 | CP.PCM.PN ---
Subjective - Date & Time of Evaluation Date of Evaluation: 11/15/17 Time of Evaluation: 12:40 - Subjective Subjective: clinically same Objective - Vital Signs/Intake and Output Vital Signs (last 24 hours): Temp Pulse Resp BP Pulse Ox 97.6 F 75 16 107/40 L 95 11/15/17 16:00 11/15/17 16:20 11/15/17 16:20 11/15/17 16:01 11/15/17 16:20 Intake and Output: 11/15/17 11/15/17 06:59 18:59 Intake Total 1735 864 Output Total 770 750 Balance 965 114 - Medications Medications: Current Medications Albuterol/Ipratropium (Duoneb 3 Mg/0.5 Mg (3 Ml) Ud) 3 ml INH RQ6 INDRA Bumetanide (Bumex) 1 mg PO DAILY [facility] Last Admin: 11/15/17 13:53 Dose: 1 mg Diphenhydramine HCl (Benadryl) 25 mg IVP Q6 PRN PRN Reason: Itching / Pruritus Last Admin: 11/11/17 05:55 Dose: 25 mg Duloxetine HCl (Cymbalta) 30 mg PO DAILY [facility] Last Admin: 11/15/17 16:11 Dose: Not Given Ferrous Sulfate (Feosol) 325 mg PO DAILY [facility] Last Admin: 11/15/17 16:06 Dose: Not Given Gabapentin (Neurontin) 300 mg PO BID [facility] Last Admin: 11/15/17 11:48 Dose: Not Given Aztreonam 1 gm/ Sodium (Chloride) 100 mls @ 100 mls/hr IVPB Q12H [facility] Last Admin: 11/15/17 08:29 Dose: 100 mls/hr Vancomycin HCl (Vancocin 750mg/D5w 150 Ml) 150 mls @ 150 mls/hr IVPB Q12H [facility] Last Admin: 11/15/17 09:11 Dose: 150 mls/hr Insulin Aspart (Novolog) 0 unit SC ACHS [facility] PRN Reason: Protocol Last Admin: 11/15/17 16:26 Dose: 12 unit Insulin Glargine (Lantus) 10 unit SC DAILY [facility] Last Admin: 11/15/17 16:26 Dose: 10 units Lactulose (Enulose) 20 gm OR TID [facility] Pantoprazole Sodium (Protonix Inj) 40 mg IVP Q12H [facility] Last Admin: 11/15/17 08:34 Dose: 40 mg Propranolol HCl (Inderal) 10 mg PO BID [facility] Last Admin: 11/15/17 13:54 Dose: 10 mg Rifaximin (Xifaxan) 550 mg PO BID [facility] Last Admin: 11/15/17 11:48 Dose: Not Given Temazepam (Restoril) 15 mg PO HS [facility] Last Admin: 11/14/17 22:35 Dose: 15 mg Vitamin A (Vitamin A & D Oint Ud Foilpak) 1 ea TOP Q4 [facility] Last Admin: 11/15/17 13:49 Dose: 1 ea - Labs Labs: 11/15/17 05:28 11/15/17 05:28 PT 29.9 SECONDS (9.7-12.2) H* D 11/14/17 07:15 INR 2.6 D 11/14/17 07:15 APTT 37 SECONDS (21-34) H 11/15/17 05:28
[2017-11-15 16:33] LABS: BASO % 0.1 % (0.0-2.0); EOS # 0.1 K/uL (0.0-0.7); EOS % 2.3 % (0.0-4.0); HEMOGLOBIN 7.3 g/dL (11.0-16.0); LYMPH # 0.3 K/uL (1.0-4.3); LYMPH % 6.7 % (20.0-40.0); MEAN CELL VOLUME 90.8 fL (81.0-99.0); MEAN CORPUSCULAR HEMOGLOBIN 31.5 pg (27.0-31.0); MEAN CORPUSCULAR HGB CONC 34.7 g/dL (33.0-37.0); MEAN PLATELET VOLUME 7.7 fL (7.2-11.7); MONO # 0.4 K/uL (0.0-0.8); MONO % 7.4 % (0.0-10.0); NEUT # 4.2 K/uL (1.8-7.0); NEUT % 83.5 % (50.0-75.0); NRBC % 0.4 % (0.0-2.0); RED CELL DISTRIBUTION WIDTH 16.7 % (11.5-14.5)
[2017-11-15 16:38] LABS: PLATELET COUNT 27 K/uL (130-400)
[2017-11-15 16:55] LABS: EOSINOPHIL 2 % (0-4); LYMPHOCYTE 10 % (20-40); MONOCYTE 5 % (0-10); NEUTROPHIL 83 % (50-75); PLATELET ESTIMATE MARKEDLY DECREASED (NORMAL); TOTAL CELLS COUNTED 100
[2017-11-15 16:56] LABS: ANISOCYTOSIS SLIGHT; OVALOCYTES SLIGHT; POLYCHROMIC MODERATE; ROULEAUX FORMATION SLIGHT; TEARDROP CELLS SLIGHT
--- NOTE | 2017-11-15 17:13 | CP.PCM.CON ---
History of Present Illness - History of Present Illness History of Present Illness: s/p ORIF pinning with trochanteric nail on 11/13/[address] Flynn. Lactate came back at 9.1. Ammonia ordered which came back at 27. WBC 18.5 with 20 bands. developed post op fever/ atelectasis r/o sepsis Has Hx cirrhosis / massive splenomegaly IV antibiotics in progress required multiple transfusions Review of Systems - Review of Systems Systems not reviewed;Unavailable: Altered Mental Status - Constitutional Constitutional: As Per HPI - EENT Eyes: absent: As Per HPI, Blind Spots, Blurred Vision, Change in Vision, Decreased Night Vision, Diplopia, Discharge, Dry Eye, Exophthalmos, Floaters, Irritation, Itchy Eyes, Loss of Peripheral Vision, Pain, Photophobia, Requires Corrective Lenses, Sees Flashes, Spots in Vision, Tunnel Vision, Other Visual Disturbances, Loss of Vision, Other Ears: absent: As Per HPI, Decreased Hearing, Ear Discharge, Ear Pain, Tinnitus, Abnormal Hearing, Disequilibrium, Dizziness, Other Nose/Mouth/Throat: absent: As Per HPI, Epistaxis, Nasal Congestion, Nasal Discharge, Nasal Obstruction, Nasal Trauma, Nose Pain, Post Nasal Drip, Sinus Pain, Sinus Pressure, Bleeding Gums, Change in Voice, Dental Pain, Dry Mouth, Dysphagia, Halitosis, Hoarsness, Lip Swelling, Mouth Lesions, Mouth Pain, Odynophagia, Sore Throat, Throat Swelling, Tongue Swelling, Facial Pain, Neck Pain, Neck Mass, Other - Breasts Breasts: absent: As Per HPI, Change in Shape, Mass, Pain, Nipple Discharge, Nipple Inversion, Skin Changes, Swelling, Other - Cardiovascular Cardiovascular: As Per HPI - Respiratory Respiratory: As Per HPI, Dyspnea - Gastrointestinal Gastrointestinal: absent: As Per HPI, Abdominal Pain, Belching, Bloating, Change in Bowel Habits, Change in Stool Character, Coffee Ground Emesis, Constipation, Cramping, Diarrhea, Dyspepsia, Dysphagia, Early Satiety, Excessive Flatus, Fecal Incontinence, Heartburn, Hematemesis, Hematochezia, Loose Stools, Melena, Nausea, Odynophagia, Temesmus, Vomiting, Other - Genitourinary Genitourinary: absent: As Per HPI, Change in Urinary Stream, Difficulty Urinating, Dysuria, Flank Pain, Hematuria, Pyuria, Nocturia, Urinary Incontinence, Urinary Frequency, Urinary Hesitance, Urinary Urgency, Voiding Freq/Small Amts, Freq UTI, Hx Renal/Bladder Calculi, Hx /Renal Surgery, Bladder Distension, Other - Reproductive: Female Reproductive:Female: absent: As Per HPI, Amenorrhea, Amenorrhea/ Control, Currently Menstual, Cycle <21 Days, Cycle >35 Days, Cycle Variable, Menses 1-7 Days, Menses >/= 8 Days, Menses Variable, Cycle > 4 Weeks Between, No Menses for 6 Months, Heavy Menses, Light Menses, Normal Menses, Spotting Between Cycles , S/P Hysterectomy, Menopausal, Post Menopausal, Premenarche, Abnormal Vaginal Bleeding, Dysmenorrhea, Dyspareunia, Genital Lesions, Genital Pruritis, Pelvic Pain, Prolapse Symptoms, Sexual Dysfunction, Vaginal Discharge, Vaginal Dryness , Vaginal Odor, Vaginal Pruritis, Other - Menstruation Menstruation: absent: As Per HPI, Amenorrhea, Amenorrhea/ Control, Currently Menstual, Cycle <21 Days, Cycle >35 Days, Cycle Variable, Menses 1-7 Days, Menses >/= 8 Days, Menses Variable, Cycle > 4 Weeks Between, No Menses for 6 Months, Heavy Menses, Light Menses, Normal Menses, Spotting Between Cycles , S/P Hysterectomy, Menopausal, Post Menopausal, Premenarche, Abnormal Vaginal Bleeding, Dysmenorrhea, Other - Musculoskeletal Musculoskeletal: As Per HPI - Integumentary Integumentary: absent: As Per HPI, Acne, Alopecia, Bleeding Lesions, Change in Hair, Change in Nails, Change in Pigmentation, Changing Lesions, Dry Skin, Erythema, Furuncle, Hirsutism, Lesions, New Lesions, Non-Healing Lesions, Photosensitivity, Pruritus, Rash, Skin Pain, Skin Ulcer, Sores, Striae, Swelling , Unusual Bruising, Wounds, Jaundice, Other - Neurological Neurological: As Per HPI - Psychiatric Psychiatric: absent: As Per HPI, Abnormal Sleep Pattern, Anhedonia, Anxiety, Auditory Hallucinations, Behavioral Changes, Change in Appetite, Change in Libido, Confusion, Depression, Difficulty Concentrating, Hallucinations, Homicidal Ideation, Hopelessness, Irritability, Memory Loss, Mood Swings, Panic Attacks, Paranoia, Suicidal Ideation, Visual Hallucinations, Tactile Hallucinations, Other - Endocrine Endocrine: absent: As Per HPI, Change in Body Appearance, Change in Libido, Cold Intolorance, Deepening of Voice, Excessive Sweating, Fatigue, Flushing, Heat Intolorance, Increase in Ring/Shoe/Hat Size, Palpitations, Polydipsia, Polyphagia, Polyuria, Other Past Patient History - Infectious Disease Hx of Infectious Diseases: None - Past Medical History & Family History Past Medical History?: Yes - Past Social History Smoking Status: Former Smoker - CARDIAC Hx Hypertension: Yes - PULMONARY Hx Asthma: Yes Hx Bronchitis: Yes - NEUROLOGICAL Other/Comment: SEVERE NEUROPATHY, hepatic encephalopathy. subdural hematoma - HEENT Hx HEENT Problems: Yes Other/Comment: Dimished vision bilateral - RENAL Hx Chronic Kidney Disease: No - ENDOCRINE/METABOLIC Hx Endocrine Disorders: Yes Hx Diabetes Mellitus Type 1: Yes Hx Diabetes Mellitus Type 2: Yes - HEMATOLOGICAL/ONCOLOGICAL Hx Anemia: Yes - INTEGUMENTARY Hx Psoriasis: Yes - MUSCULOSKELETAL/RHEUMATOLOGICAL Hx Falls: Yes - GASTROINTESTINAL Hx Diverticulitis: Yes Hx Gall Bladder Disease: Yes Hx Gastritis: Yes - GENITOURINARY/GYNECOLOGICAL Hx Genitourinary Disorders: No - PSYCHIATRIC Hx Substance Use: No - SURGICAL HISTORY Hx Appendectomy: Yes Hx Cholecystectomy: Yes - ANESTHESIA Hx Anesthesia: Yes Hx Anesthesia Reactions: No Hx Malignant Hyperthermia: No Meds Allergies/Adverse Reactions: Allergies Allergy/AdvReac Type Severity Reaction Status Date / Time acetaminophen [From Percocet] Allergy RASH Verified 11/08/17 20:36 aspirin Allergy RASH Verified 11/08/17 20:36 oxycodone HCl [From Percocet] Allergy RASH Verified 11/08/17 20:36 Penicillins Allergy RASH Verified 11/08/17 20:36 PAIN MEDICATIONS Allergy Uncoded 11/08/17 20:36 - Medications Medications: Current Medications Albuterol/Ipratropium (Duoneb 3 Mg/0.5 Mg (3 Ml) Ud) 3 ml INH RQ6 [facility] Bumetanide (Bumex) 1 mg PO DAILY [facility] Last Admin: 11/15/17 13:53 Dose: 1 mg Diphenhydramine HCl (Benadryl) 25 mg IVP Q6 PRN PRN Reason: Itching / Pruritus Last Admin: 11/11/17 05:55 Dose: 25 mg Duloxetine HCl (Cymbalta) 30 mg PO DAILY [facility] Last Admin: 11/15/17 16:11 Dose: Not Given Ferrous Sulfate (Feosol) 325 mg PO DAILY [facility] Last Admin: 11/15/17 16:06 Dose: Not Given Gabapentin (Neurontin) 300 mg PO BID [facility] Last Admin: 11/15/17 11:48 Dose: Not Given Aztreonam 1 gm/ Sodium (Chloride) 100 mls @ 100 mls/hr IVPB Q12H [facility] Last Admin: 11/15/17 08:29 Dose: 100 mls/hr Vancomycin HCl (Vancocin 750mg/D5w 150 Ml) 150 mls @ 150 mls/hr IVPB Q12H [facility] Last Admin: 11/15/17 09:11 Dose: 150 mls/hr Insulin Aspart (Novolog) 0 unit SC ACHS [facility] PRN Reason: Protocol Last Admin: 11/15/17 16:26 Dose: 12 unit Insulin Glargine (Lantus) 10 unit SC DAILY [facility] Last Admin: 11/15/17 16:26 Dose: 10 units Lactulose (Enulose) 20 gm [place] TID [facility] Pantoprazole Sodium (Protonix Inj) 40 mg IVP Q12H [facility] Last Admin: 11/15/17 08:34 Dose: 40 mg Propranolol HCl (Inderal) 10 mg PO BID [facility] Last Admin: 11/15/17 13:54 Dose: 10 mg Rifaximin (Xifaxan) 550 mg PO BID [facility] Last Admin: 11/15/17 11:48 Dose: Not Given Temazepam (Restoril) 15 mg PO HS [facility] Last Admin: 11/14/17 22:35 Dose: 15 mg Vitamin A (Vitamin A & D Oint Ud Foilpak) 1 ea TOP Q4 [facility] Last Admin: 11/15/17 13:49 Dose: 1 ea Physical Exam - Constitutional Appears: Confused, Chronically Ill - Head Exam Head Exam: NORMOCEPHALIC - Eye Exam Eye Exam: PERRL. absent: Scleral icterus - ENT Exam ENT Exam: Mucous Membranes Dry - Neck Exam Neck exam: Negative for: Lymphadenopathy - Respiratory Exam Respiratory Exam: Decreased Breath Sounds, Rhonchi - Cardiovascular Exam Cardiovascular Exam: REGULAR RHYTHM, +S1, +S2 - GI/Abdominal Exam GI & Abdominal Exam: Diminished Bowel Sounds, Soft. absent: Tenderness - Rectal Exam Rectal Exam: Deferred - Exam Exam: NORMAL INSPECTION - Extremities Exam Extremities exam: Positive for: pedal edema, tenderness, pedal pulses present. Negative for: calf tenderness - Back Exam Back exam: absent: CVA tenderness (L), CVA tenderness (R) - Neurological Exam Neurological exam: Altered - Psychiatric Exam Psychiatric exam: Depressed - Skin Skin Exam: Dry Results - Vital Signs Recent Vital Signs: Last Vital Signs Temp 97.6 F 11/15/17 16:00 Pulse 75 11/15/17 16:20 Resp 16 11/15/17 16:20 BP 107/40 L 11/15/17 16:01 Pulse Ox 95 11/15/17 16:20 - Labs Result Diagrams: 11/15/17 16:26 11/15/17 05:28 Labs: Laboratory Results - last 24 hr 11/13/17 11/14/17 11/14/17 06:39 17:37 21:15 WBC RBC Hgb Hct MCV MCH MCHC RDW Plt Count MPV Neut % (Auto) Lymph % (Auto) [place] % (Auto) Eos % (Auto) Baso % (Auto) Neut # Lymph # [place] # Eos # Baso # Neutrophils % (Manual) Band Neutrophils % Lymphocytes % (Manual) Monocytes % (Manual) Eosinophils % (Manual) Platelet Estimate Polychromasia Anisocytosis (manual) Tear Drop Cells Ovalocytes Rouleaux APTT Puncture Site pCO2 pO2 HCO3 ABG pH ABG Total CO2 ABG O2 Saturation ABG Base Excess Curt Test ABG Potassium A-a O2 Difference Respiratory Index Sodium Chloride Glucose Lactate Vent Mode FiO2 Crit Value Called To Crit Value Called By Crit Value Read Back Blood Gas Notified Time Potassium Carbon Dioxide Anion Gap BUN Creatinine Est GFR ( Amer) Est GFR (Non-Af Amer) POC Glucose (mg/dL) 413 H* 421 H* Random Glucose Lactic Acid Calcium Phosphorus Magnesium Total Bilirubin AST ALT Alkaline Phosphatase Ammonia Total Protein Albumin Globulin Albumin/Globulin Ratio Arterial Blood Potassium Urine Color Urine Clarity Urine pH Ur Specific [place] Urine Protein Urine Glucose (UA) Urine Ketones Urine Blood Urine Nitrate Urine Bilirubin Urine Urobilinogen Ur Leukocyte Esterase Urine WBC (Auto) Ur Squamous Epith Cells Urine Bacteria Blood Type O POSITIVE Antibody Screen Positive Antibody Identification Cancelled 11/15/17 11/15/17 11/15/17 00:01 00:23 00:23 WBC 13.2 H RBC 2.01 L Hgb 6.4 L* Hct 18.6 L MCV 92.7 MCH 32.0 H MCHC 34.6 RDW 20.4 H Plt Count 5 L* D MPV 10.5 Neut % (Auto) 86.6 H Lymph % (Auto) 9.0 L [place] % (Auto) 3.9 Eos % (Auto) 0.2 Baso % (Auto) 0.3 Neut # 11.4 H Lymph # 1.2 [place] # 0.5 Eos # 0.0 Baso # 0.0 Neutrophils % (Manual) 89 H Band Neutrophils % 5 H Lymphocytes % (Manual) 4 L Monocytes % (Manual) 2 Eosinophils % (Manual) Platelet Estimate Markedly decreased L Polychromasia Moderate Anisocytosis (manual) Moderate Tear Drop Cells Slight Ovalocytes Slight Rouleaux APTT Puncture Site Lb pCO2 41 pO2 93 HCO3 27.0 ABG pH 7.43 ABG Total CO2 28.5 H ABG O2 Saturation 100.5 H ABG Base Excess 2.6 Curt Test Na ABG Potassium 3.9 A-a O2 Difference 569.0 Respiratory Index 6.1 Sodium 139.0 130 L Chloride 106.0 98 Glucose 442 H* Lactate 5.2 H* Vent Mode Non rbreather FiO2 100.0 Crit Value Called To Dr russo Crit Value Called By Konstantin wheat/rt Crit Value Read Back Y Blood Gas Notified Time 10 Potassium 4.1 Carbon Dioxide 24 Anion Gap 12 BUN 46 H Creatinine 1.3 H Est GFR ( Amer) 49 Est GFR (Non-Af Amer) 40 POC Glucose (mg/dL) Random Glucose 413 H* D Lactic Acid Calcium 7.5 L Phosphorus 4.0 Magnesium 1.4 L Total Bilirubin 5.2 H AST 41 H ALT 31 Alkaline Phosphatase 85 Ammonia Total Protein 4.3 L Albumin 2.0 L Globulin 2.3 Albumin/Globulin Ratio 0.9 L Arterial Blood Potassium 3.9 Urine Color Urine Clarity Urine pH Ur Specific [place] Urine Protein Urine Glucose (UA) Urine Ketones Urine Blood Urine Nitrate Urine Bilirubin Urine Urobilinogen Ur Leukocyte Esterase Urine WBC (Auto) Ur Squamous Epith Cells Urine Bacteria Blood Type Antibody Screen Antibody Identification 11/15/17 11/15/17 11/15/17 05:28 05:28 05:28 WBC 8.8 RBC 2.28 L Hgb 7.4 L Hct 21.2 L MCV 92.6 MCH 32.2 H MCHC 34.8 RDW 17.1 H Plt Count 33 L D MPV 8.4 Neut % (Auto) Lymph % (Auto) [place] % (Auto) Eos % (Auto) Baso % (Auto) Neut # Lymph # [place] # Eos # Baso # Neutrophils % (Manual) Band Neutrophils % Lymphocytes % (Manual) Monocytes % (Manual) Eosinophils % (Manual) Platelet Estimate Polychromasia Anisocytosis (manual) Tear Drop Cells Ovalocytes Rouleaux APTT 37 H Puncture Site pCO2 pO2 HCO3 ABG pH ABG Total CO2 ABG O2 Saturation ABG Base Excess Curt Test ABG Potassium A-a O2 Difference Respiratory Index Sodium 131 L Chloride 96 L Glucose Lactate Vent Mode FiO2 Crit Value Called To Crit Value Called By Crit Value Read Back Blood Gas Notified Time Potassium 3.9 Carbon Dioxide 29 Anion Gap 10 BUN 47 H Creatinine 1.3 H Est GFR ( Amer) 49 Est GFR (Non-Af Amer) 40 POC Glucose (mg/dL) Random Glucose 441 H* Lactic Acid Calcium 7.9 L Phosphorus Magnesium Total Bilirubin 6.7 H AST 29 ALT 30 Alkaline Phosphatase 83 Ammonia Total Protein 4.2 L Albumin 2.0 L Globulin 2.2 Albumin/Globulin Ratio 0.9 L Arterial Blood Potassium Urine Color Urine Clarity Urine pH Ur Specific [place] Urine Protein Urine Glucose (UA) Urine Ketones Urine Blood Urine Nitrate Urine Bilirubin Urine Urobilinogen Ur Leukocyte Esterase Urine WBC (Auto) Ur Squamous Epith Cells Urine Bacteria Blood Type Antibody Screen Antibody Identification 11/15/17 11/15/17 11/15/17 05:28 05:28 05:43 WBC RBC Hgb Hct MCV MCH MCHC RDW Plt Count MPV Neut % (Auto) Lymph % (Auto) [place] % (Auto) Eos % (Auto) Baso % (Auto) Neut # Lymph # [place] # Eos # Baso # Neutrophils % (Manual) Band Neutrophils % Lymphocytes % (Manual) Monocytes % (Manual) Eosinophils % (Manual) Platelet Estimate Polychromasia Anisocytosis (manual) Tear Drop Cells Ovalocytes Rouleaux APTT Puncture Site pCO2 pO2 HCO3 ABG pH ABG Total CO2 ABG O2 Saturation ABG Base Excess Curt Test ABG Potassium A-a O2 Difference Respiratory Index Sodium Chloride Glucose Lactate Vent Mode FiO2 Crit Value Called To Crit Value Called By Crit Value Read Back Blood Gas Notified Time Potassium Carbon Dioxide Anion Gap BUN Creatinine Est GFR ( Amer) Est GFR (Non-Af Amer) POC Glucose (mg/dL) Random Glucose Lactic Acid 3.1 H Calcium Phosphorus 4.4 Magnesium 1.3 L Total Bilirubin AST ALT Alkaline Phosphatase Ammonia 20 D Total Protein Albumin Globulin Albumin/Globulin Ratio Arterial Blood Potassium Urine Color Urine Clarity Urine pH Ur Specific [place] Urine Protein Urine Glucose (UA) Urine Ketones Urine Blood Urine Nitrate Urine Bilirubin Urine Urobilinogen Ur Leukocyte Esterase Urine WBC (Auto) Ur Squamous Epith Cells Urine Bacteria Blood Type Antibody Screen Antibody Identification 11/15/17 11/15/17 11/15/17 07:41 09:04 11:42 WBC RBC Hgb Hct MCV MCH MCHC RDW Plt Count MPV Neut % (Auto) Lymph % (Auto) [place] % (Auto) Eos % (Auto) Baso % (Auto) Neut # Lymph # [place] # Eos # Baso # Neutrophils % (Manual) Band Neutrophils % Lymphocytes % (Manual) Monocytes % (Manual) Eosinophils % (Manual) Platelet Estimate Polychromasia Anisocytosis (manual) Tear Drop Cells Ovalocytes Rouleaux APTT Puncture Site pCO2 pO2 HCO3 ABG pH ABG Total CO2 ABG O2 Saturation ABG Base Excess Curt Test ABG Potassium A-a O2 Difference Respiratory Index Sodium Chloride Glucose Lactate Vent Mode FiO2 Crit Value Called To Crit Value Called By Crit Value Read Back Blood Gas Notified Time Potassium Carbon Dioxide Anion Gap BUN Creatinine Est GFR ( Amer) Est GFR (Non-Af Amer) POC Glucose (mg/dL) 398 H 457 H* Random Glucose Lactic Acid Calcium Phosphorus Magnesium Total Bilirubin AST ALT Alkaline Phosphatase Ammonia Total Protein Albumin Globulin Albumin/Globulin Ratio Arterial Blood Potassium Urine Color Yellow Urine Clarity Clear Urine pH 5.0 Ur Specific [place] 1.014 Urine Protein Negative Urine Glucose (UA) 2+ H Urine Ketones Negative Urine Blood Negative Urine Nitrate Negative Urine Bilirubin Negative Urine Urobilinogen Normal Ur Leukocyte Esterase Neg Urine WBC (Auto) 6 H Ur Squamous Epith Cells 1 Urine Bacteria Rare Blood Type Antibody Screen Antibody Identification 11/15/17 11/15/17 11:44 16:26 WBC 5.0 RBC 2.30 L Hgb 7.3 L Hct 20.9 L MCV 90.8 MCH 31.5 H MCHC 34.7 RDW 16.7 H Plt Count 27 L* MPV 7.7 Neut % (Auto) 83.5 H Lymph % (Auto) 6.7 L [place] % (Auto) 7.4 Eos % (Auto) 2.3 Baso % (Auto) 0.1 Neut # 4.2 Lymph # 0.3 L [place] # 0.4 Eos # 0.1 Baso # 0.0 Neutrophils % (Manual) 83 H Band Neutrophils % Lymphocytes % (Manual) 10 L Monocytes % (Manual) 5 Eosinophils % (Manual) 2 Platelet Estimate Markedly decreased L Polychromasia Moderate Anisocytosis (manual) Slight Tear Drop Cells Slight Ovalocytes Slight Rouleaux Slight APTT Puncture Site pCO2 pO2 HCO3 ABG pH ABG Total CO2 ABG O2 Saturation ABG Base Excess Curt Test ABG Potassium A-a O2 Difference Respiratory Index Sodium Chloride Glucose Lactate Vent Mode FiO2 Crit Value Called To Crit Value Called By Crit Value Read Back Blood Gas Notified Time Potassium Carbon Dioxide Anion Gap BUN Creatinine Est GFR ( Amer) Est GFR (Non-Af Amer) POC Glucose (mg/dL) 420 H* Random Glucose Lactic Acid Calcium Phosphorus Magnesium Total Bilirubin AST ALT Alkaline Phosphatase Ammonia Total Protein Albumin Globulin Albumin/Globulin Ratio Arterial Blood Potassium Urine Color Urine Clarity Urine pH Ur Specific [place] Urine Protein Urine Glucose (UA) Urine Ketones Urine Blood Urine Nitrate Urine Bilirubin Urine Urobilinogen Ur Leukocyte Esterase Urine WBC (Auto) Ur Squamous Epith Cells Urine Bacteria Blood Type Antibody Screen Antibody Identification Assessment & Plan (1) Closed displaced intertrochanteric fracture of right femur Status: Acute (2) Anemia Status: Acute (3) Cirrhosis Status: Acute (4) Coagulopathy Status: Acute (5) GI bleed Status: Acute (6) HCV (hepatitis C virus) Status: Acute (7) HTN (hypertension) Status: Acute (8) Hepatic encephalopathy Status: Acute - Assessment and Plan (Free Text) Assessment: cont rx await cultures blood urine sputum
--- NOTE | 2017-11-15 17:59 | CP.PCM.PN ---
Subjective - Date & Time of Evaluation Date of Evaluation: 11/15/17 Time of Evaluation: 17:50 - Subjective Subjective: patient is currently in ICU. Objective - Vital Signs/Intake and Output Vital Signs (last 24 hours): Temp Pulse Resp BP Pulse Ox 97.6 F 75 14 119/42 L 98 11/15/17 16:00 11/15/17 17:46 11/15/17 17:46 11/15/17 17:46 11/15/17 17:46 Intake and Output: 11/15/17 11/15/17 06:59 18:59 Intake Total 1735 889 Output Total 770 750 Balance 965 139 - Medications Medications: Current Medications Albuterol/Ipratropium (Duoneb 3 Mg/0.5 Mg (3 Ml) Ud) 3 ml INH RQ6 [facility] Bumetanide (Bumex) 1 mg PO DAILY [facility] Last Admin: 11/15/17 13:53 Dose: 1 mg Diphenhydramine HCl (Benadryl) 25 mg IVP Q6 PRN PRN Reason: Itching / Pruritus Last Admin: 11/11/17 05:55 Dose: 25 mg Duloxetine HCl (Cymbalta) 30 mg PO DAILY [facility] Last Admin: 11/15/17 16:11 Dose: Not Given Ferrous Sulfate (Feosol) 325 mg PO DAILY [facility] Last Admin: 11/15/17 16:06 Dose: Not Given Gabapentin (Neurontin) 300 mg PO BID [facility] Last Admin: 11/15/17 11:48 Dose: Not Given Aztreonam 1 gm/ Sodium (Chloride) 100 mls @ 100 mls/hr IVPB Q12H [facility] Last Admin: 11/15/17 08:29 Dose: 100 mls/hr Vancomycin HCl (Vancocin 750mg/D5w 150 Ml) 150 mls @ 150 mls/hr IVPB Q12H [facility] Last Admin: 11/15/17 09:11 Dose: 150 mls/hr Insulin Aspart (Novolog) 0 unit SC ACHS [facility] PRN Reason: Protocol Last Admin: 11/15/17 16:26 Dose: 12 unit Insulin Glargine (Lantus) 10 unit SC DAILY [facility] Last Admin: 11/15/17 16:26 Dose: 10 units Lactulose (Enulose) 200 gm [place] TID [facility] Pantoprazole Sodium (Protonix Inj) 40 mg IVP Q12H [facility] Last Admin: 11/15/17 08:34 Dose: 40 mg Propranolol HCl (Inderal) 10 mg PO BID [facility] Last Admin: 11/15/17 13:54 Dose: 10 mg Rifaximin (Xifaxan) 550 mg PO BID [facility] Last Admin: 11/15/17 11:48 Dose: Not Given Temazepam (Restoril) 15 mg PO HS [facility] Last Admin: 11/14/17 22:35 Dose: 15 mg Vitamin A (Vitamin A & D Oint Ud Foilpak) 1 ea TOP Q4 [facility] Last Admin: 11/15/17 13:49 Dose: 1 ea - Labs Labs: 11/15/17 16:26 11/15/17 05:28 PT 29.9 SECONDS (9.7-12.2) H* D 11/14/17 07:15 INR 2.6 D 11/14/17 07:15 APTT 37 SECONDS (21-34) H 11/15/17 05:28 - Constitutional Appears: Toxic - Head Exam Head Exam: NORMAL INSPECTION - Eye Exam Eye Exam: Normal appearance - ENT Exam ENT Exam: Mucous Membranes Dry - Neck Exam Neck Exam: Full ROM - Respiratory Exam Respiratory Exam: Decreased Breath Sounds - Cardiovascular Exam Cardiovascular Exam: REGULAR RHYTHM - GI/Abdominal Exam GI & Abdominal Exam: Normal Bowel Sounds - Rectal Exam Rectal Exam: Deferred - Extremities Exam Extremities Exam: absent: Pedal Edema - Back Exam Back Exam: NORMAL INSPECTION - Skin Skin Exam: Normal Color Assessment and Plan (1) HTN (hypertension) Assessment & Plan: well controlled Status: Acute (2) Hepatic encephalopathy Assessment & Plan: follow ammonia level. sepsis work up in progress Status: Acute
--- NOTE | 2017-11-15 18:22 | CP.CCUPN ---
<Christiana Wheat - Last Filed: 11/15/17 18:16> CCU Subjective - Physician Review Subjective (Free Text): 11/15/17 18:16 Patient seen and examined at bedside. Patient resting comfortably in bed with no acute events overnight. Patient still confused today and not responding to all of my questions. ROS unattainable. CCU Objective - Vital Signs / Intake & Output Vital Signs (Last 4 hours): Vital Signs Temp Pulse Resp BP Pulse Ox 11/15/17 18:01 76 13 115/42 L 97 11/15/17 18:00 74 12 98 11/15/17 17:50 75 14 97 11/15/17 17:46 75 14 119/42 L 98 11/15/17 17:40 76 13 99 11/15/17 17:31 75 11 L 111/43 L 95 11/15/17 17:30 65 13 97 11/15/17 17:20 66 15 96 11/15/17 17:16 70 13 112/39 L 98 11/15/17 17:10 71 12 98 11/15/17 17:01 71 13 118/44 L 97 11/15/17 17:00 71 12 97 11/15/17 16:50 68 16 97 11/15/17 16:46 69 11 L 114/43 L 97 11/15/17 16:40 68 17 97 11/15/17 16:31 69 13 114/41 L 98 11/15/17 16:30 70 12 97 11/15/17 16:20 75 16 95 11/15/17 16:10 70 14 98 11/15/17 16:01 67 12 107/40 L 97 11/15/17 16:00 97.6 F 71 13 97 11/15/17 15:50 71 11 L 99 11/15/17 15:46 71 12 118/43 L 98 11/15/17 15:40 69 15 99 11/15/17 15:31 69 13 112/39 L 96 11/15/17 15:30 71 15 97 11/15/17 15:20 72 14 99 11/15/17 15:16 70 13 118/42 L 99 11/15/17 15:10 68 13 99 11/15/17 15:01 68 13 111/41 L 99 11/15/17 15:00 72 13 100 11/15/17 14:50 71 12 100 11/15/17 14:46 71 12 116/42 L 100 11/15/17 14:40 71 14 100 11/15/17 14:31 72 14 123/42 L 100 11/15/17 14:30 72 14 100 11/15/17 14:20 71 12 100 Intake and Output (Last 8hrs): Intake & Output 11/15/17 11/15/17 11/15/17 06:59 14:59 22:59 Intake Total 1285 839 75 Output Total 685 675 350 Balance 600 164 -275 Intake: Intake, IV Amount 710 350 75 Right Forearm 710 350 75 Oral 0 0 Blood Product 325 489 Apheresis Plts Acda Lr 189 1st Con Unit [id number] Apheresis Plts Acda Lr 300 Irr Unit [id number] Apheresis Rbc Cp2d As3 Lr 325 2nd Unit [id number] Other 250 Apheresis Rbc Cp2d As3 Lr 250 2nd Unit [id number] Output: Urine 685 675 350 Urethral (George) 685 675 350 - Physical Exam Physical Exam Limitations: Positive for: Altered Mental Status Pupils: Positive for: PERRL Mouth: Positive for: Moist Mucous Membranes Respiratory/Chest: Positive for: Clear to Auscultation, Good Air Exchange. Negative for: Respiratory Distress, Accessory Muscle Use Cardiovascular: Positive for: Regular Rate and Rhythm, Normal S1, S2 Abdomen: Positive for: Tenderness (LLQ ), Normal Bowel Sounds. Negative for: Distention, Peritoneal Signs Upper Extremity: Positive for: Normal Inspection Lower Extremity: Positive for: Normal Inspection, Other (s/p ORIF right hip ) Neurological: Negative for: GCS=15 Skin: Positive for: Warm, Dry, Normal Color. Negative for: Rashes Psychiatric: Negative for: Oriented x 3 - Medications Active Medications: Active Medications Generic Name Dose Route Start Last Admin Trade Name Freq PRN Reason Stop Dose Admin Albuterol/Ipratropium 3 ml 11/15/17 14:00 Duoneb 3 Mg/0.5 Mg (3 Ml) Ud INH RQ6 INDRA Bumetanide 1 mg 11/09/17 10:00 11/15/17 13:53 Bumex PO 1 mg DAILY INDRA Administration Diphenhydramine HCl 25 mg 11/09/17 08:37 11/11/17 05:55 Benadryl IVP 25 mg Q6 PRN Administration Itching / Pruritus Duloxetine HCl 30 mg 11/09/17 10:00 11/15/17 16:11 Cymbalta PO Not Given DAILY [facility] Ferrous Sulfate 325 mg 11/09/17 10:00 11/15/17 16:06 Feosol PO Not Given DAILY [facility] [place] Gabapentin 300 mg 11/09/17 10:00 11/15/17 11:48 Neurontin PO Not Given BID [facility] [place] Aztreonam 1 gm/ Sodium 100 mls @ 100 mls/hr 11/14/17 08:00 11/15/17 08:29 Chloride IVPB 100 mls/hr Q12H INDRA Administration Vancomycin HCl 150 mls @ 150 mls/hr 11/14/17 10:00 11/15/17 09:11 Vancocin 750mg/D5w 150 Ml IVPB 150 mls/hr Q12H INDRA Administration Insulin Aspart 0 unit 11/15/17 11:29 11/15/17 16:26 Novolog SC 12 unit ACHS INDRA Administration Protocol Insulin Glargine 10 unit 11/09/17 22:00 11/15/17 16:26 Lantus SC 10 units DAILY INDRA Administration Lactulose 200 gm 11/15/17 17:25 Enulose NE TID [facility] [place] Pantoprazole Sodium 40 mg 11/13/17 08:30 11/15/17 08:34 Protonix Inj IVP 40 mg Q12H INDRA Administration Propranolol HCl 10 mg 11/09/17 10:00 11/15/17 13:54 Inderal PO 10 mg BID INDRA Administration Rifaximin 550 mg 11/12/17 18:00 11/15/17 11:48 Xifaxan PO Not Given BID [facility] [place] Temazepam 15 mg 11/09/17 22:00 11/14/17 22:35 Restoril PO 15 mg HS INDRA Administration Vitamin A 1 ea 11/12/17 09:07 11/15/17 13:49 Vitamin A & D Oint Ud Foilpak TOP 1 ea Q4 INDRA Administration - Patient Studies Lab Studies: Microbiology Studies 11/14/17 17:48 MRSA Culture (Admit) - Final Naris MRSA NOT DETECTED 11/14/17 07:57 Urine Culture - Preliminary Urine,Clean Catch Gram Positive Cocci 11/14/17 06:37 Blood Culture - Preliminary Blood NO GROWTH AFTER 24 HOURS 11/14/17 06:50 Blood Culture - Preliminary Blood NO GROWTH AFTER 24 HOURS Lab Studies 11/15/17 11/15/17 11/15/17 Range/Units 16:26 16:13 11:44 WBC 5.0 (4.8-10.8) K/uL RBC 2.30 L (3.80-5.20) Mil/uL Hgb 7.3 L (11.0-16.0) g/dL Hct 20.9 L (34.0-47.0) % MCV 90.8 (81.0-99.0) fL MCH 31.5 H (27.0-31.0) pg MCHC 34.7 (33.0-37.0) g/dL RDW 16.7 H (11.5-14.5) % Plt Count 27 L* (130-400) K/uL MPV 7.7 (7.2-11.7) fL Neut % (Auto) 83.5 H (50.0-75.0) % Lymph % (Auto) 6.7 L (20.0-40.0) % Sharp % (Auto) 7.4 (0.0-10.0) % Eos % (Auto) 2.3 (0.0-4.0) % Baso % (Auto) 0.1 (0.0-2.0) % Neut # 4.2 (1.8-7.0) K/uL Lymph # 0.3 L (1.0-4.3) K/uL Sharp # 0.4 (0.0-0.8) K/uL Eos # 0.1 (0.0-0.7) K/uL Baso # 0.0 (0.0-0.2) K/uL Neutrophils % (Manual) 83 H (50-75) % Band Neutrophils % (0-2) % Lymphocytes % (Manual) 10 L (20-40) % Monocytes % (Manual) 5 (0-10) % Eosinophils % (Manual) 2 (0-4) % Platelet Estimate Markedly decreased L (NORMAL) Polychromasia Moderate Anisocytosis (manual) Slight Tear Drop Cells Slight Ovalocytes Slight Rouleaux Slight APTT (21-34) SECONDS Puncture Site pCO2 (35-45) mm/Hg pO2 (80-100) mm/Hg HCO3 (21-28) mmol/L ABG pH (7.35-7.45) ABG Total CO2 (22-28) mmol/L ABG O2 Saturation (95-98) % ABG Base Excess (-2.0-3.0) mmol/L Curt Test ABG Potassium (3.6-5.2) mmol/L A-a O2 Difference mm/Hg Respiratory Index Sodium (132-148) mmol/l Chloride (98-107) mmol/L Glucose (65-105) mg/dl Lactate (0.7-2.1) mmol/L Vent Mode FiO2 % Crit Value Called To Crit Value Called By Crit Value Read Back Blood Gas Notified Time Potassium (3.6-5.2) mmol/L Carbon Dioxide (22-30) mmol/L Anion Gap (10-20) BUN (7-17) mg/dL Creatinine (0.7-1.2) mg/dL Est GFR ( Amer) Est GFR (Non-Af Amer) POC Glucose (mg/dL) 411 H* 420 H* (65-110) mg/dL Random Glucose (65-105) mg/dL Lactic Acid (0.7-2.1) mmol/L Calcium (8.6-10.4) mg/dl Phosphorus (2.5-4.5) mg/dL Magnesium (1.6-2.3) mg/dL Total Bilirubin (0.2-1.3) mg/dL AST (14-36) U/L ALT (9-52) U/L Alkaline Phosphatase (38-126) U/L Ammonia (9-33) umol/L Total Protein (6.3-8.3) g/dL Albumin (3.5-5.0) g/dL Globulin (2.2-3.9) gm/dL Albumin/Globulin Ratio (1.0-2.1) Arterial Blood Potassium (3.6-5.2) mmol/L Urine Color (YELLOW) Urine Clarity (Clear) Urine pH (5.0-8.0) Ur Specific [place] (1.003-1.030) Urine Protein (NEGATIVE) mg/dL Urine Glucose (UA) (Normal) mg/dL Urine Ketones (NEGATIVE) mg/dL Urine Blood (NEGATIVE) Urine Nitrate (NEGATIVE) Urine Bilirubin (NEGATIVE) Urine Urobilinogen (0.2-1.0) mg/dL Ur Leukocyte Esterase (Negative) Jaxon/uL Urine WBC (Auto) (0-5) /hpf Ur Squamous Epith Cells (0-5) /hpf Urine Bacteria (<OCC) Blood Type Antibody Screen Antibody Identification 11/15/17 11/15/17 11/15/17 Range/Units 11:42 09:04 07:41 WBC (4.8-10.8) K/uL RBC (3.80-5.20) Mil/uL Hgb (11.0-16.0) g/dL Hct (34.0-47.0) % MCV (81.0-99.0) fL MCH (27.0-31.0) pg MCHC (33.0-37.0) g/dL RDW (11.5-14.5) % Plt Count (130-400) K/uL MPV (7.2-11.7) fL Neut % (Auto) (50.0-75.0) % Lymph % (Auto) (20.0-40.0) % Sharp % (Auto) (0.0-10.0) % Eos % (Auto) (0.0-4.0) % Baso % (Auto) (0.0-2.0) % Neut # (1.8-7.0) K/uL Lymph # (1.0-4.3) K/uL Sharp # (0.0-0.8) K/uL Eos # (0.0-0.7) K/uL Baso # (0.0-0.2) K/uL Neutrophils % (Manual) (50-75) % Band Neutrophils % (0-2) % Lymphocytes % (Manual) (20-40) % Monocytes % (Manual) (0-10) % Eosinophils % (Manual) (0-4) % Platelet Estimate (NORMAL) Polychromasia Anisocytosis (manual) Tear Drop Cells Ovalocytes Rouleaux APTT (21-34) SECONDS Puncture Site pCO2 (35-45) mm/Hg pO2 (80-100) mm/Hg HCO3 (21-28) mmol/L ABG pH (7.35-7.45) ABG Total CO2 (22-28) mmol/L ABG O2 Saturation (95-98) % ABG Base Excess (-2.0-3.0) mmol/L Curt Test ABG Potassium (3.6-5.2) mmol/L A-a O2 Difference mm/Hg Respiratory Index Sodium (132-148) mmol/l Chloride (98-107) mmol/L Glucose (65-105) mg/dl Lactate (0.7-2.1) mmol/L Vent Mode FiO2 % Crit Value Called To Crit Value Called By Crit Value Read Back Blood Gas Notified Time Potassium (3.6-5.2) mmol/L Carbon Dioxide (22-30) mmol/L Anion Gap (10-20) BUN (7-17) mg/dL Creatinine (0.7-1.2) mg/dL Est GFR ( Amer) Est GFR (Non-Af Amer) POC Glucose (mg/dL) 457 H* 398 H (65-110) mg/dL Random Glucose (65-105) mg/dL Lactic Acid (0.7-2.1) mmol/L Calcium (8.6-10.4) mg/dl Phosphorus (2.5-4.5) mg/dL Magnesium (1.6-2.3) mg/dL Total Bilirubin (0.2-1.3) mg/dL AST (14-36) U/L ALT (9-52) U/L Alkaline Phosphatase (38-126) U/L Ammonia (9-33) umol/L Total Protein (6.3-8.3) g/dL Albumin (3.5-5.0) g/dL Globulin (2.2-3.9) gm/dL Albumin/Globulin Ratio (1.0-2.1) Arterial Blood Potassium (3.6-5.2) mmol/L Urine Color Yellow (YELLOW) Urine Clarity Clear (Clear) Urine pH 5.0 (5.0-8.0) Ur Specific [place] 1.014 (1.003-1.030) Urine Protein Negative (NEGATIVE) mg/dL Urine Glucose (UA) 2+ H (Normal) mg/dL Urine Ketones Negative (NEGATIVE) mg/dL Urine Blood Negative (NEGATIVE) Urine Nitrate Negative (NEGATIVE) Urine Bilirubin Negative (NEGATIVE) Urine Urobilinogen Normal (0.2-1.0) mg/dL Ur Leukocyte Esterase Neg (Negative) Jaxon/uL Urine WBC (Auto) 6 H (0-5) /hpf Ur Squamous Epith Cells 1 (0-5) /hpf Urine Bacteria Rare (<OCC) Blood Type Antibody Screen Antibody Identification 11/15/17 11/15/17 11/15/17 Range/Units 05:43 05:28 05:28 WBC (4.8-10.8) K/uL RBC (3.80-5.20) Mil/uL Hgb (11.0-16.0) g/dL Hct (34.0-47.0) % MCV (81.0-99.0) fL MCH (27.0-31.0) pg MCHC (33.0-37.0) g/dL RDW (11.5-14.5) % Plt Count (130-400) K/uL MPV (7.2-11.7) fL Neut % (Auto) (50.0-75.0) % Lymph % (Auto) (20.0-40.0) % Sharp % (Auto) (0.0-10.0) % Eos % (Auto) (0.0-4.0) % Baso % (Auto) (0.0-2.0) % Neut # (1.8-7.0) K/uL Lymph # (1.0-4.3) K/uL Sharp # (0.0-0.8) K/uL Eos # (0.0-0.7) K/uL Baso # (0.0-0.2) K/uL Neutrophils % (Manual) (50-75) % Band Neutrophils % (0-2) % Lymphocytes % (Manual) (20-40) % Monocytes % (Manual) (0-10) % Eosinophils % (Manual) (0-4) % Platelet Estimate (NORMAL) Polychromasia Anisocytosis (manual) Tear Drop Cells Ovalocytes Rouleaux APTT (21-34) SECONDS Puncture Site pCO2 (35-45) mm/Hg pO2 (80-100) mm/Hg HCO3 (21-28) mmol/L ABG pH (7.35-7.45) ABG Total CO2 (22-28) mmol/L ABG O2 Saturation (95-98) % ABG Base Excess (-2.0-3.0) mmol/L Curt Test ABG Potassium (3.6-5.2) mmol/L A-a O2 Difference mm/Hg Respiratory Index Sodium (132-148) mmol/l Chloride (98-107) mmol/L Glucose (65-105) mg/dl Lactate (0.7-2.1) mmol/L Vent Mode FiO2 % Crit Value Called To Crit Value Called By Crit Value Read Back Blood Gas Notified Time Potassium (3.6-5.2) mmol/L Carbon Dioxide (22-30) mmol/L Anion Gap (10-20) BUN (7-17) mg/dL Creatinine (0.7-1.2) mg/dL Est GFR ( Amer) Est GFR (Non-Af Amer) POC Glucose (mg/dL) (65-110) mg/dL Random Glucose (65-105) mg/dL Lactic Acid 3.1 H (0.7-2.1) mmol/L Calcium (8.6-10.4) mg/dl Phosphorus 4.4 (2.5-4.5) mg/dL Magnesium 1.3 L (1.6-2.3) mg/dL Total Bilirubin (0.2-1.3) mg/dL AST (14-36) U/L ALT (9-52) U/L Alkaline Phosphatase (38-126) U/L Ammonia 20 D (9-33) umol/L Total Protein (6.3-8.3) g/dL Albumin (3.5-5.0) g/dL Globulin (2.2-3.9) gm/dL Albumin/Globulin Ratio (1.0-2.1) Arterial Blood Potassium (3.6-5.2) mmol/L Urine Color (YELLOW) Urine Clarity (Clear) Urine pH (5.0-8.0) Ur Specific [place] (1.003-1.030) Urine Protein (NEGATIVE) mg/dL Urine Glucose (UA) (Normal) mg/dL Urine Ketones (NEGATIVE) mg/dL Urine Blood (NEGATIVE) Urine Nitrate (NEGATIVE) Urine Bilirubin (NEGATIVE) Urine Urobilinogen (0.2-1.0) mg/dL Ur Leukocyte Esterase (Negative) Jaxon/uL Urine WBC (Auto) (0-5) /hpf Ur Squamous Epith Cells (0-5) /hpf Urine Bacteria (<OCC) Blood Type Antibody Screen Antibody Identification 11/15/17 11/15/17 11/15/17 Range/Units 05:28 05:28 05:28 WBC 8.8 (4.8-10.8) K/uL RBC 2.28 L (3.80-5.20) Mil/uL Hgb 7.4 L (11.0-16.0) g/dL Hct 21.2 L (34.0-47.0) % MCV 92.6 (81.0-99.0) fL MCH 32.2 H (27.0-31.0) pg MCHC 34.8 (33.0-37.0) g/dL RDW 17.1 H (11.5-14.5) % Plt Count 33 L D (130-400) K/uL MPV 8.4 (7.2-11.7) fL Neut % (Auto) (50.0-75.0) % Lymph % (Auto) (20.0-40.0) % Sharp % (Auto) (0.0-10.0) % Eos % (Auto) (0.0-4.0) % Baso % (Auto) (0.0-2.0) % Neut # (1.8-7.0) K/uL Lymph # (1.0-4.3) K/uL Sharp # (0.0-0.8) K/uL Eos # (0.0-0.7) K/uL Baso # (0.0-0.2) K/uL Neutrophils % (Manual) (50-75) % Band Neutrophils % (0-2) % Lymphocytes % (Manual) (20-40) % Monocytes % (Manual) (0-10) % Eosinophils % (Manual) (0-4) % Platelet Estimate (NORMAL) Polychromasia Anisocytosis (manual) Tear Drop Cells Ovalocytes Rouleaux APTT 37 H (21-34) SECONDS Puncture Site pCO2 (35-45) mm/Hg pO2 (80-100) mm/Hg HCO3 (21-28) mmol/L ABG pH (7.35-7.45) ABG Total CO2 (22-28) mmol/L ABG O2 Saturation (95-98) % ABG Base Excess (-2.0-3.0) mmol/L Curt Test ABG Potassium (3.6-5.2) mmol/L A-a O2 Difference mm/Hg Respiratory Index Sodium 131 L (132-148) mmol/l Chloride 96 L (98-107) mmol/L Glucose (65-105) mg/dl Lactate (0.7-2.1) mmol/L Vent Mode FiO2 % Crit Value Called To Crit Value Called By Crit Value Read Back Blood Gas Notified Time Potassium 3.9 (3.6-5.2) mmol/L Carbon Dioxide 29 (22-30) mmol/L Anion Gap 10 (10-20) BUN 47 H (7-17) mg/dL Creatinine 1.3 H (0.7-1.2) mg/dL Est GFR ( Amer) 49 Est GFR (Non-Af Amer) 40 POC Glucose (mg/dL) (65-110) mg/dL Random Glucose 441 H* (65-105) mg/dL Lactic Acid (0.7-2.1) mmol/L Calcium 7.9 L (8.6-10.4) mg/dl Phosphorus (2.5-4.5) mg/dL Magnesium (1.6-2.3) mg/dL Total Bilirubin 6.7 H (0.2-1.3) mg/dL AST 29 (14-36) U/L ALT 30 (9-52) U/L Alkaline Phosphatase 83 (38-126) U/L Ammonia (9-33) umol/L Total Protein 4.2 L (6.3-8.3) g/dL Albumin 2.0 L (3.5-5.0) g/dL Globulin 2.2 (2.2-3.9) gm/dL Albumin/Globulin Ratio 0.9 L (1.0-2.1) Arterial Blood Potassium (3.6-5.2) mmol/L Urine Color (YELLOW) Urine Clarity (Clear) Urine pH (5.0-8.0) Ur Specific [place] (1.003-1.030) Urine Protein (NEGATIVE) mg/dL Urine Glucose (UA) (Normal) mg/dL Urine Ketones (NEGATIVE) mg/dL Urine Blood (NEGATIVE) Urine Nitrate (NEGATIVE) Urine Bilirubin (NEGATIVE) Urine Urobilinogen (0.2-1.0) mg/dL Ur Leukocyte Esterase (Negative) Jaxon/uL Urine WBC (Auto) (0-5) /hpf Ur Squamous Epith Cells (0-5) /hpf Urine Bacteria (<OCC) Blood Type Antibody Screen Antibody Identification 11/15/17 11/15/17 11/15/17 Range/Units 00:23 00:23 00:01 WBC 13.2 H (4.8-10.8) K/uL RBC 2.01 L (3.80-5.20) Mil/uL Hgb 6.4 L* (11.0-16.0) g/dL Hct 18.6 L (34.0-47.0) % MCV 92.7 (81.0-99.0) fL MCH 32.0 H (27.0-31.0) pg MCHC 34.6 (33.0-37.0) g/dL RDW 20.4 H (11.5-14.5) % Plt Count 5 L* D (130-400) K/uL MPV 10.5 (7.2-11.7) fL Neut % (Auto) 86.6 H (50.0-75.0) % Lymph % (Auto) 9.0 L (20.0-40.0) % Sharp % (Auto) 3.9 (0.0-10.0) % Eos % (Auto) 0.2 (0.0-4.0) % Baso % (Auto) 0.3 (0.0-2.0) % Neut # 11.4 H (1.8-7.0) K/uL Lymph # 1.2 (1.0-4.3) K/uL Sharp # 0.5 (0.0-0.8) K/uL Eos # 0.0 (0.0-0.7) K/uL Baso # 0.0 (0.0-0.2) K/uL Neutrophils % (Manual) 89 H (50-75) % Band Neutrophils % 5 H (0-2) % Lymphocytes % (Manual) 4 L (20-40) % Monocytes % (Manual) 2 (0-10) % Eosinophils % (Manual) (0-4) % Platelet Estimate Markedly decreased L (NORMAL) Polychromasia Moderate Anisocytosis (manual) Moderate Tear Drop Cells Slight Ovalocytes Slight Rouleaux APTT (21-34) SECONDS Puncture Site Lb pCO2 41 (35-45) mm/Hg pO2 93 (80-100) mm/Hg HCO3 27.0 (21-28) mmol/L ABG pH 7.43 (7.35-7.45) ABG Total CO2 28.5 H (22-28) mmol/L ABG O2 Saturation 100.5 H (95-98) % ABG Base Excess 2.6 (-2.0-3.0) mmol/L Curt Test Na ABG Potassium 3.9 (3.6-5.2) mmol/L A-a O2 Difference 569.0 mm/Hg Respiratory Index 6.1 Sodium 130 L 139.0 (132-148) mmol/l Chloride 98 106.0 (98-107) mmol/L Glucose 442 H* (65-105) mg/dl Lactate 5.2 H* (0.7-2.1) mmol/L Vent Mode Non rbreather FiO2 100.0 % Crit Value Called To Dr russo Crit Value Called By Konstantin wheat/rt Crit Value Read Back Y Blood Gas Notified Time 10 Potassium 4.1 (3.6-5.2) mmol/L Carbon Dioxide 24 (22-30) mmol/L Anion Gap 12 (10-20) BUN 46 H (7-17) mg/dL Creatinine 1.3 H (0.7-1.2) mg/dL Est GFR ( Amer) 49 Est GFR (Non-Af Amer) 40 POC Glucose (mg/dL) (65-110) mg/dL Random Glucose 413 H* D (65-105) mg/dL Lactic Acid (0.7-2.1) mmol/L Calcium 7.5 L (8.6-10.4) mg/dl Phosphorus 4.0 (2.5-4.5) mg/dL Magnesium 1.4 L (1.6-2.3) mg/dL Total Bilirubin 5.2 H (0.2-1.3) mg/dL AST 41 H (14-36) U/L ALT 31 (9-52) U/L Alkaline Phosphatase 85 (38-126) U/L Ammonia (9-33) umol/L Total Protein 4.3 L (6.3-8.3) g/dL Albumin 2.0 L (3.5-5.0) g/dL Globulin 2.3 (2.2-3.9) gm/dL Albumin/Globulin Ratio 0.9 L (1.0-2.1) Arterial Blood Potassium 3.9 (3.6-5.2) mmol/L Urine Color (YELLOW) Urine Clarity (Clear) Urine pH (5.0-8.0) Ur Specific [place] (1.003-1.030) Urine Protein (NEGATIVE) mg/dL Urine Glucose (UA) (Normal) mg/dL Urine Ketones (NEGATIVE) mg/dL Urine Blood (NEGATIVE) Urine Nitrate (NEGATIVE) Urine Bilirubin (NEGATIVE) Urine Urobilinogen (0.2-1.0) mg/dL Ur Leukocyte Esterase (Negative) Jaxon/uL Urine WBC (Auto) (0-5) /hpf Ur Squamous Epith Cells (0-5) /hpf Urine Bacteria (<OCC) Blood Type Antibody Screen Antibody Identification 11/14/17 11/13/17 Range/Units 21:15 06:39 WBC (4.8-10.8) K/uL RBC (3.80-5.20) Mil/uL Hgb (11.0-16.0) g/dL Hct (34.0-47.0) % MCV (81.0-99.0) fL MCH (27.0-31.0) pg MCHC (33.0-37.0) g/dL RDW (11.5-14.5) % Plt Count (130-400) K/uL MPV (7.2-11.7) fL Neut % (Auto) (50.0-75.0) % Lymph % (Auto) (20.0-40.0) % Sharp % (Auto) (0.0-10.0) % Eos % (Auto) (0.0-4.0) % Baso % (Auto) (0.0-2.0) % Neut # (1.8-7.0) K/uL Lymph # (1.0-4.3) K/uL Sharp # (0.0-0.8) K/uL Eos # (0.0-0.7) K/uL Baso # (0.0-0.2) K/uL Neutrophils % (Manual) (50-75) % Band Neutrophils % (0-2) % Lymphocytes % (Manual) (20-40) % Monocytes % (Manual) (0-10) % Eosinophils % (Manual) (0-4) % Platelet Estimate (NORMAL) Polychromasia Anisocytosis (manual) Tear Drop Cells Ovalocytes Rouleaux APTT (21-34) SECONDS Puncture Site pCO2 (35-45) mm/Hg pO2 (80-100) mm/Hg HCO3 (21-28) mmol/L ABG pH (7.35-7.45) ABG Total CO2 (22-28) mmol/L ABG O2 Saturation (95-98) % ABG Base Excess (-2.0-3.0) mmol/L Curt Test ABG Potassium (3.6-5.2) mmol/L A-a O2 Difference mm/Hg Respiratory Index Sodium (132-148) mmol/l Chloride (98-107) mmol/L Glucose (65-105) mg/dl Lactate (0.7-2.1) mmol/L Vent Mode FiO2 % Crit Value Called To Crit Value Called By Crit Value Read Back Blood Gas Notified Time Potassium (3.6-5.2) mmol/L Carbon Dioxide (22-30) mmol/L Anion Gap (10-20) BUN (7-17) mg/dL Creatinine (0.7-1.2) mg/dL Est GFR ( Amer) Est GFR (Non-Af Amer) POC Glucose (mg/dL) 421 H* (65-110) mg/dL Random Glucose (65-105) mg/dL Lactic Acid (0.7-2.1) mmol/L Calcium (8.6-10.4) mg/dl Phosphorus (2.5-4.5) mg/dL Magnesium (1.6-2.3) mg/dL Total Bilirubin (0.2-1.3) mg/dL AST (14-36) U/L ALT (9-52) U/L Alkaline Phosphatase (38-126) U/L Ammonia (9-33) umol/L Total Protein (6.3-8.3) g/dL Albumin (3.5-5.0) g/dL Globulin (2.2-3.9) gm/dL Albumin/Globulin Ratio (1.0-2.1) Arterial Blood Potassium (3.6-5.2) mmol/L Urine Color (YELLOW) Urine Clarity (Clear) Urine pH (5.0-8.0) Ur Specific [place] (1.003-1.030) Urine Protein (NEGATIVE) mg/dL Urine Glucose (UA) (Normal) mg/dL Urine Ketones (NEGATIVE) mg/dL Urine Blood (NEGATIVE) Urine Nitrate (NEGATIVE) Urine Bilirubin (NEGATIVE) Urine Urobilinogen (0.2-1.0) mg/dL Ur Leukocyte Esterase (Negative) Jaxon/uL Urine WBC (Auto) (0-5) /hpf Ur Squamous Epith Cells (0-5) /hpf Urine Bacteria (<OCC) Blood Type O POSITIVE Antibody Screen Positive Antibody Identification Cancelled Laboratory Results - last 24 hr 11/13/17 11/14/17 11/15/17 06:39 21:15 00:01 WBC RBC Hgb Hct MCV MCH MCHC RDW Plt Count MPV Neut % (Auto) Lymph % (Auto) Sharp % (Auto) Eos % (Auto) Baso % (Auto) Neut # Lymph # Sharp # Eos # Baso # Neutrophils % (Manual) Band Neutrophils % Lymphocytes % (Manual) Monocytes % (Manual) Eosinophils % (Manual) Platelet Estimate Polychromasia Anisocytosis (manual) Tear Drop Cells Ovalocytes Rouleaux APTT Puncture Site Lb pCO2 41 pO2 93 HCO3 27.0 ABG pH 7.43 ABG Total CO2 28.5 H ABG O2 Saturation 100.5 H ABG Base Excess 2.6 Curt Test Na ABG Potassium 3.9 A-a O2 Difference 569.0 Respiratory Index 6.1 Sodium 139.0 Chloride 106.0 Glucose 442 H* Lactate 5.2 H* Vent Mode Non rbreather FiO2 100.0 Crit Value Called To Dr russo Crit Value Called By Konstantin wheat/rt Crit Value Read Back Y Blood Gas Notified Time 10 Potassium Carbon Dioxide Anion Gap BUN Creatinine Est GFR ( Amer) Est GFR (Non-Af Amer) POC Glucose (mg/dL) 421 H* Random Glucose Lactic Acid Calcium Phosphorus Magnesium Total Bilirubin AST ALT Alkaline Phosphatase Ammonia Total Protein Albumin Globulin Albumin/Globulin Ratio Arterial Blood Potassium 3.9 Urine Color Urine Clarity Urine pH Ur Specific [place] Urine Protein Urine Glucose (UA) Urine Ketones Urine Blood Urine Nitrate Urine Bilirubin Urine Urobilinogen Ur Leukocyte Esterase Urine WBC (Auto) Ur Squamous Epith Cells Urine Bacteria Blood Type O POSITIVE Antibody Screen Positive Antibody Identification Cancelled 11/15/17 11/15/17 11/15/17 00:23 00:23 05:28 WBC 13.2 H 8.8 RBC 2.01 L 2.28 L Hgb 6.4 L* 7.4 L Hct 18.6 L 21.2 L MCV 92.7 92.6 MCH 32.0 H 32.2 H MCHC 34.6 34.8 RDW 20.4 H 17.1 H Plt Count 5 L* D 33 L D MPV 10.5 8.4 Neut % (Auto) 86.6 H Lymph % (Auto) 9.0 L Sharp % (Auto) 3.9 Eos % (Auto) 0.2 Baso % (Auto) 0.3 Neut # 11.4 H Lymph # 1.2 Sharp # 0.5 Eos # 0.0 Baso # 0.0 Neutrophils % (Manual) 89 H Band Neutrophils % 5 H Lymphocytes % (Manual) 4 L Monocytes % (Manual) 2 Eosinophils % (Manual) Platelet Estimate Markedly decreased L Polychromasia Moderate Anisocytosis (manual) Moderate Tear Drop Cells Slight Ovalocytes Slight Rouleaux APTT Puncture Site pCO2 pO2 HCO3 ABG pH ABG Total CO2 ABG O2 Saturation ABG Base Excess Curt Test ABG Potassium A-a O2 Difference Respiratory Index Sodium 130 L Chloride 98 Glucose Lactate Vent Mode FiO2 Crit Value Called To Crit Value Called By Crit Value Read Back Blood Gas Notified Time Potassium 4.1 Carbon Dioxide 24 Anion Gap 12 BUN 46 H Creatinine 1.3 H Est GFR ( Amer) 49 Est GFR (Non-Af Amer) 40 POC Glucose (mg/dL) Random Glucose 413 H* D Lactic Acid Calcium 7.5 L Phosphorus 4.0 Magnesium 1.4 L Total Bilirubin 5.2 H AST 41 H ALT 31 Alkaline Phosphatase 85 Ammonia Total Protein 4.3 L Albumin 2.0 L Globulin 2.3 Albumin/Globulin Ratio 0.9 L Arterial Blood Potassium Urine Color Urine Clarity Urine pH Ur Specific [place] Urine Protein Urine Glucose (UA) Urine Ketones Urine Blood Urine Nitrate Urine Bilirubin Urine Urobilinogen Ur Leukocyte Esterase Urine WBC (Auto) Ur Squamous Epith Cells Urine Bacteria Blood Type Antibody Screen Antibody Identification 11/15/17 11/15/17 11/15/17 05:28 05:28 05:28 WBC RBC Hgb Hct MCV MCH MCHC RDW Plt Count MPV Neut % (Auto) Lymph % (Auto) Sharp % (Auto) Eos % (Auto) Baso % (Auto) Neut # Lymph # Sharp # Eos # Baso # Neutrophils % (Manual) Band Neutrophils % Lymphocytes % (Manual) Monocytes % (Manual) Eosinophils % (Manual) Platelet Estimate Polychromasia Anisocytosis (manual) Tear Drop Cells Ovalocytes Rouleaux APTT 37 H Puncture Site pCO2 pO2 HCO3 ABG pH ABG Total CO2 ABG O2 Saturation ABG Base Excess Curt Test ABG Potassium A-a O2 Difference Respiratory Index Sodium 131 L Chloride 96 L Glucose Lactate Vent Mode FiO2 Crit Value Called To Crit Value Called By Crit Value Read Back Blood Gas Notified Time Potassium 3.9 Carbon Dioxide 29 Anion Gap 10 BUN 47 H Creatinine 1.3 H Est GFR ( Amer) 49 Est GFR (Non-Af Amer) 40 POC Glucose (mg/dL) Random Glucose 441 H* Lactic Acid Calcium 7.9 L Phosphorus 4.4 Magnesium 1.3 L Total Bilirubin 6.7 H AST 29 ALT 30 Alkaline Phosphatase 83 Ammonia Total Protein 4.2 L Albumin 2.0 L Globulin 2.2 Albumin/Globulin Ratio 0.9 L Arterial Blood Potassium Urine Color Urine Clarity Urine pH Ur Specific [place] Urine Protein Urine Glucose (UA) Urine Ketones Urine Blood Urine Nitrate Urine Bilirubin Urine Urobilinogen Ur Leukocyte Esterase Urine WBC (Auto) Ur Squamous Epith Cells Urine Bacteria Blood Type Antibody Screen Antibody Identification 11/15/17 11/15/17 11/15/17 05:28 05:43 07:41 WBC RBC Hgb Hct MCV MCH MCHC RDW Plt Count MPV Neut % (Auto) Lymph % (Auto) Sharp % (Auto) Eos % (Auto) Baso % (Auto) Neut # Lymph # Sharp # Eos # Baso # Neutrophils % (Manual) Band Neutrophils % Lymphocytes % (Manual) Monocytes % (Manual) Eosinophils % (Manual) Platelet Estimate Polychromasia Anisocytosis (manual) Tear Drop Cells Ovalocytes Rouleaux APTT Puncture Site pCO2 pO2 HCO3 ABG pH ABG Total CO2 ABG O2 Saturation ABG Base Excess Curt Test ABG Potassium A-a O2 Difference Respiratory Index Sodium Chloride Glucose Lactate Vent Mode FiO2 Crit Value Called To Crit Value Called By Crit Value Read Back Blood Gas Notified Time Potassium Carbon Dioxide Anion Gap BUN Creatinine Est GFR ( Amer) Est GFR (Non-Af Amer) POC Glucose (mg/dL) 398 H Random Glucose Lactic Acid 3.1 H Calcium Phosphorus Magnesium Total Bilirubin AST ALT Alkaline Phosphatase Ammonia 20 D Total Protein Albumin Globulin Albumin/Globulin Ratio Arterial Blood Potassium Urine Color Urine Clarity Urine pH Ur Specific [place] Urine Protein Urine Glucose (UA) Urine Ketones Urine Blood Urine Nitrate Urine Bilirubin Urine Urobilinogen Ur Leukocyte Esterase Urine WBC (Auto) Ur Squamous Epith Cells Urine Bacteria Blood Type Antibody Screen Antibody Identification 11/15/17 11/15/17 11/15/17 09:04 11:42 11:44 WBC RBC Hgb Hct MCV MCH MCHC RDW Plt Count MPV Neut % (Auto) Lymph % (Auto) Sharp % (Auto) Eos % (Auto) Baso % (Auto) Neut # Lymph # Sharp # Eos # Baso # Neutrophils % (Manual) Band Neutrophils % Lymphocytes % (Manual) Monocytes % (Manual) Eosinophils % (Manual) Platelet Estimate Polychromasia Anisocytosis (manual) Tear Drop Cells Ovalocytes Rouleaux APTT Puncture Site pCO2 pO2 HCO3 ABG pH ABG Total CO2 ABG O2 Saturation ABG Base Excess Curt Test ABG Potassium A-a O2 Difference Respiratory Index Sodium Chloride Glucose Lactate Vent Mode FiO2 Crit Value Called To Crit Value Called By Crit Value Read Back Blood Gas Notified Time Potassium Carbon Dioxide Anion Gap BUN Creatinine Est GFR ( Amer) Est GFR (Non-Af Amer) POC Glucose (mg/dL) 457 H* 420 H* Random Glucose Lactic Acid Calcium Phosphorus Magnesium Total Bilirubin AST ALT Alkaline Phosphatase Ammonia Total Protein Albumin Globulin Albumin/Globulin Ratio Arterial Blood Potassium Urine Color Yellow Urine Clarity Clear Urine pH 5.0 Ur Specific [place] 1.014 Urine Protein Negative Urine Glucose (UA) 2+ H Urine Ketones Negative Urine Blood Negative Urine Nitrate Negative Urine Bilirubin Negative Urine Urobilinogen Normal Ur Leukocyte Esterase Neg Urine WBC (Auto) 6 H Ur Squamous Epith Cells 1 Urine Bacteria Rare Blood Type Antibody Screen Antibody Identification 11/15/17 11/15/17 16:13 16:26 WBC 5.0 RBC 2.30 L Hgb 7.3 L Hct 20.9 L MCV 90.8 MCH 31.5 H MCHC 34.7 RDW 16.7 H Plt Count 27 L* MPV 7.7 Neut % (Auto) 83.5 H Lymph % (Auto) 6.7 L Sharp % (Auto) 7.4 Eos % (Auto) 2.3 Baso % (Auto) 0.1 Neut # 4.2 Lymph # 0.3 L Sharp # 0.4 Eos # 0.1 Baso # 0.0 Neutrophils % (Manual) 83 H Band Neutrophils % Lymphocytes % (Manual) 10 L Monocytes % (Manual) 5 Eosinophils % (Manual) 2 Platelet Estimate Markedly decreased L Polychromasia Moderate Anisocytosis (manual) Slight Tear Drop Cells Slight Ovalocytes Slight Rouleaux Slight APTT Puncture Site pCO2 pO2 HCO3 ABG pH ABG Total CO2 ABG O2 Saturation ABG Base Excess Curt Test ABG Potassium A-a O2 Difference Respiratory Index Sodium Chloride Glucose Lactate Vent Mode FiO2 Crit Value Called To Crit Value Called By Crit Value Read Back Blood Gas Notified Time Potassium Carbon Dioxide Anion Gap BUN Creatinine Est GFR ( Amer) Est GFR (Non-Af Amer) POC Glucose (mg/dL) 411 H* Random Glucose Lactic Acid Calcium Phosphorus Magnesium Total Bilirubin AST ALT Alkaline Phosphatase Ammonia Total Protein Albumin Globulin Albumin/Globulin Ratio Arterial Blood Potassium Urine Color Urine Clarity Urine pH Ur Specific [place] Urine Protein Urine Glucose (UA) Urine Ketones Urine Blood Urine Nitrate Urine Bilirubin Urine Urobilinogen Ur Leukocyte Esterase Urine WBC (Auto) Ur Squamous Epith Cells Urine Bacteria Blood Type Antibody Screen Antibody Identification Fingerstick Blood Sugar Results: 411 Review of Systems - Review of Systems Systems not reviewed;Unavailable: Altered Mental Status Critical Care Progress Note - Nutrition Nutrition: Nutrition Category Date Time Status Consistent Carbohydrate [DIET] Diets 11/13/17 Dinner Active Assessment/Plan - Assessment and Plan (Free Text) Assessment: 72F with PMH of Hepatitis C with cirrhosis and resulting hepatic encephalopathy , hypertension, splenomegaly, pancytopenia, history of multiple GI bleeds, diabetes, and recent hip fracture s/p ORIF right hip who presented to the ICU with sepsis and recent urine culture positive for coagulase negative staphylococcus (11/11/17). Plan: Neuro A&Ox3 GCS: 15 11/15/16 CT Head: Nonspecific white matter changes. Acute infarction may be CT occult within first 24 hours. If a focal deficit persists, consider follow-up CT or MRI for further evaluation. Toradol Gabapentin 300 mg PO BID Psych Cymbalta 30 mg PO QD Restoril 15 mg PO HS Cardio HR: WNL BP: 120/44 Cardiology consulted (Dr. Napier) - recs appreciated 11/09/17 Echo: normal LVF, EF 59.1%, moderate tricuspid regurgitation, RV systolic pressure >60 mmHg (estimated), LV filling pressure probably inc. 11/14/17 CXR: Central vascular mild pulmonary venous congestion. Probable small left pleural effusion. Mild left basilar atelectasis/infiltrate. Cardiomegaly. Propranolol 10 mg PO BID Respiratory O2 sat: 100% on 2L NC VBG (11/14/17): 7.45/38/52/26.5 ABG (11/15/17): 7.43/41/93/27.0 11/14/17 CXR: Central vascular mild pulmonary venous congestion. Probable small left pleural effusion. Mild left basilar atelectasis/infiltrate. Cardiomegaly. 11/15/17 CT Angiography of chest: No definite CT evidence of pulmonary embolism. Bibasilar atelectasis. Superimposed pneumonia not excluded. Mild anasarca. Duonebs 3 ml INH RQ6 MSK Ortho consulted (Dr. Flynn) - recs appreciated Hip/Pelvis XR: Acute comminuted and displaced right intertrochanteric fracture. [id number] osteopenia. Right Knee XR: No evidence of acute fracture. Advanced osteoarthritic changes. CT Pelvis: Diffuse osteopenia. Acute displaced right intertrochanteric femoral fracture associated with displaced bony fragments and superior displacement of the right femoral shaft. Nondisplaced fracture at the right inferior pubic ramus No evidence of hematoma or free fluid in the pelvis. CT Right Hip: Acute comminuted and displaced right intertrochanteric fractures associated with displaced bony fragment at the lesser trochanter. Acute nondisplaced right inferior pubic ramus fracture. CT Right Knee: No acute findings related to/accounting for the clinical presentation. Tricompartmental degenerative change. Bilateral Knee XR: Bilateral knee osteoarthrosis right knee greater than left knee. Right femoral tibial compartment most notable bilateral patellofemoral compartment osteoarthrosis. Bilateral medial and lateral chondrocalcinosis. Renal 24H Balance: +3345 BUN/Cr: 47/1.3 Bumex 1mg PO QD Fluids, electrolytes, nutrition Electrolytes WNL except for mentioned below: Sodium: 131 Chloride: 96 Calcium: 7.9 Ma.3 Albumin: 2.0 Nutrition: Consistent carbohydrate diet 11/11/17, 11/15/17 Urinalysis: Negative Infectious disease Tmax: 98 (11/15/17) Tcurrent: 97.7 WBC: 8.8 Lactate (11/15/17): 5.1, 9.1, 5.2 Procalcitonin (11/14/17): 0.53 ID consulted (Dr. Ruggiero) - recs appreciated Cultures: 11/11/17: Urine + for coag neg staph 11/14/17: Blood 11/14/17: Urine + for gram positive cocci 11/14/17: MRSA Aztreonam 1g Q12H Vancomycin 750mg Q12H Hematology H&H: 7.4/21.2 Plt: 33 APTT: 37 Heme/Onc Consulted (Dr. Brewster/Dr. Maciel) - recs appreciated 11/12/17 1 unit of platelet 11/13/17 5 units of cryoprecipitate, 2 PRBC, 1 unit of platelets, 2 units of FFP 11/14/17 1 unit of FFP 11/15/17 2 units of cryoprecipitate, 4 units of PRBC, 2 units of platelets Feosol 325 mg PO QD GI AST/ALT: Tbili: 6.7 Ammonia (11/15/17): 20 11/15/17 CT angiography of abdomen/pelvis: Fluid/loose stool within bowel may suggest diarrhea illness. Apparent mild haziness about pancreas. Correlate with amylase/lipase levels. Moderate to extensive anasarca. Stranding/air are about right hip, nonspecific. Infection not excluded. Cirrhosis with portal hypertension. GI consulted (Dr. Lazo) - recs appreciated Lactulose 20 g NE TID Rifaximin 550 mg PO BID Endocrine - hx DM monitor blood glucose - currently 300-400s HbA1c (11/14/18): 7.9 Insulin glargine 10U SC QD ISS (High Dose) Immunology Benadryl 25 mg IV Q6 PRN itching/pruritis Integumentary A&D ointment Prophylaxis GI: PPI 40 mg IVP Q12H DVT: SCDs Discussed with Dr. Valdez <Edgardo Valdez - Last Filed: 11/15/17 18:53> CCU Objective - Vital Signs / Intake & Output Vital Signs (Last 4 hours): Vital Signs Temp Pulse Resp BP Pulse Ox 11/15/17 18:01 76 13 115/42 L 97 11/15/17 18:00 74 12 98 11/15/17 17:50 75 14 97 11/15/17 17:46 75 14 119/42 L 98 11/15/17 17:40 76 13 99 11/15/17 17:31 75 11 L 111/43 L 95 11/15/17 17:30 65 13 97 11/15/17 17:20 66 15 96 11/15/17 17:16 70 13 112/39 L 98 11/15/17 17:10 71 12 98 11/15/17 17:01 71 13 118/44 L 97 11/15/17 17:00 71 12 97 11/15/17 16:50 68 16 97 11/15/17 16:46 69 11 L 114/43 L 97 11/15/17 16:40 68 17 97 11/15/17 16:31 69 13 114/41 L 98 11/15/17 16:30 70 12 97 11/15/17 16:20 75 16 95 11/15/17 16:10 70 14 98 11/15/17 16:01 67 12 107/40 L 97 11/15/17 16:00 97.6 F 71 13 97 11/15/17 15:50 71 11 L 99 11/15/17 15:46 71 12 118/43 L 98 11/15/17 15:40 69 15 99 11/15/17 15:31 69 13 112/39 L 96 11/15/17 15:30 71 15 97 11/15/17 15:20 72 14 99 11/15/17 15:16 70 13 118/42 L 99 11/15/17 15:10 68 13 99 11/15/17 15:01 68 13 111/41 L 99 11/15/17 15:00 72 13 100 11/15/17 14:50 71 12 100 Intake and Output (Last 8hrs): Intake & Output 11/15/17 11/15/17 11/15/17 06:59 14:59 22:59 Intake Total 1285 839 75 Output Total 685 675 350 Balance 600 164 -275 Intake: Intake, IV Amount 710 350 75 Right Forearm 710 350 75 Oral 0 0 Blood Product 325 489 Apheresis Plts Acda Lr 189 1st Con Unit [id number] Apheresis Plts Acda Lr 300 Irr Unit [id number] Apheresis Rbc Cp2d As3 Lr 325 2nd Unit [id number] Other 250 Apheresis Rbc Cp2d As3 Lr 250 2nd Unit [id number] Output: Urine 685 675 350 Urethral (George) 685 675 350 - Medications Active Medications: Active Medications Generic Name Dose Route Start Last Admin Trade Name Freq PRN Reason Stop Dose Admin Albuterol/Ipratropium 3 ml 11/15/17 14:00 Duoneb 3 Mg/0.5 Mg (3 Ml) Ud INH RQ6 INDRA Bumetanide 1 mg 11/09/17 10:00 11/15/17 13:53 Bumex PO 1 mg DAILY INDRA Administration Diphenhydramine HCl 25 mg 11/09/17 08:37 11/11/17 05:55 Benadryl IVP 25 mg Q6 PRN Administration Itching / Pruritus Duloxetine HCl 30 mg 11/09/17 10:00 11/15/17 16:11 Cymbalta PO Not Given DAILY [facility] Ferrous Sulfate 325 mg 11/09/17 10:00 11/15/17 16:06 Feosol PO Not Given DAILY [facility] Gabapentin 300 mg 11/09/17 10:00 11/15/17 18:23 Neurontin PO Not Given BID INDRA Aztreonam 1 gm/ Sodium 100 mls @ 100 mls/hr 11/14/17 08:00 11/15/17 08:29 Chloride IVPB 100 mls/hr Q12H INDRA Administration Vancomycin HCl 150 mls @ 150 mls/hr 11/14/17 10:00 11/15/17 09:11 Vancocin 750mg/D5w 150 Ml IVPB 150 mls/hr Q12H INDRA Administration Insulin Aspart 0 unit 11/15/17 11:29 11/15/17 16:26 Novolog SC 12 unit ACHS INDRA Administration Protocol Insulin Glargine 10 unit 11/09/17 22:00 11/15/17 16:26 Lantus SC 10 units DAILY INDRA Administration Lactulose 200 gm 11/15/17 17:25 11/15/17 18:22 Enulose NE 200 gm TID INDRA Administration Pantoprazole Sodium 40 mg 11/13/17 08:30 11/15/17 08:34 Protonix Inj IVP 40 mg Q12H INDRA Administration Propranolol HCl 10 mg 11/09/17 10:00 11/15/17 18:23 Inderal PO Not Given BID INDRA Rifaximin 550 mg 11/12/17 18:00 11/15/17 18:24 Xifaxan PO Not Given BID INDRA Temazepam 15 mg 11/09/17 22:00 11/14/17 22:35 Restoril PO 15 mg HS INDRA Administration Vitamin A 1 ea 11/12/17 09:07 11/15/17 18:23 Vitamin A & D Oint Ud Foilpak TOP 1 ea Q4 INDRA Administration - Patient Studies Lab Studies: Microbiology Studies 11/14/17 17:48 MRSA Culture (Admit) - Final Naris MRSA NOT DETECTED 11/14/17 07:57 Urine Culture - Preliminary Urine,Clean Catch Gram Positive Cocci 11/14/17 06:37 Blood Culture - Preliminary Blood NO GROWTH AFTER 24 HOURS 11/14/17 06:50 Blood Culture - Preliminary Blood NO GROWTH AFTER 24 HOURS Lab Studies 11/15/17 11/15/17 11/15/17 Range/Units 16:26 16:13 11:44 WBC 5.0 (4.8-10.8) K/uL RBC 2.30 L (3.80-5.20) Mil/uL Hgb 7.3 L (11.0-16.0) g/dL Hct 20.9 L (34.0-47.0) % MCV 90.8 (81.0-99.0) fL MCH 31.5 H (27.0-31.0) pg MCHC 34.7 (33.0-37.0) g/dL RDW 16.7 H (11.5-14.5) % Plt Count 27 L* (130-400) K/uL MPV 7.7 (7.2-11.7) fL Neut % (Auto) 83.5 H (50.0-75.0) % Lymph % (Auto) 6.7 L (20.0-40.0) % Sharp % (Auto) 7.4 (0.0-10.0) % Eos % (Auto) 2.3 (0.0-4.0) % Baso % (Auto) 0.1 (0.0-2.0) % Neut # 4.2 (1.8-7.0) K/uL Lymph # 0.3 L (1.0-4.3) K/uL Sharp # 0.4 (0.0-0.8) K/uL Eos # 0.1 (0.0-0.7) K/uL Baso # 0.0 (0.0-0.2) K/uL Neutrophils % (Manual) 83 H (50-75) % Band Neutrophils % (0-2) % Lymphocytes % (Manual) 10 L (20-40) % Monocytes % (Manual) 5 (0-10) % Eosinophils % (Manual) 2 (0-4) % Platelet Estimate Markedly decreased L (NORMAL) Polychromasia Moderate Anisocytosis (manual) Slight Tear Drop Cells Slight Ovalocytes Slight Rouleaux Slight APTT (21-34) SECONDS Puncture Site pCO2 (35-45) mm/Hg pO2 (80-100) mm/Hg HCO3 (21-28) mmol/L ABG pH (7.35-7.45) ABG Total CO2 (22-28) mmol/L ABG O2 Saturation (95-98) % ABG Base Excess (-2.0-3.0) mmol/L Curt Test ABG Potassium (3.6-5.2) mmol/L A-a O2 Difference mm/Hg Respiratory Index Sodium (132-148) mmol/l Chloride (98-107) mmol/L Glucose (65-105) mg/dl Lactate (0.7-2.1) mmol/L Vent Mode FiO2 % Crit Value Called To Crit Value Called By Crit Value Read Back Blood Gas Notified Time Potassium (3.6-5.2) mmol/L Carbon Dioxide (22-30) mmol/L Anion Gap (10-20) BUN (7-17) mg/dL Creatinine (0.7-1.2) mg/dL Est GFR ( Amer) Est GFR (Non-Af Amer) POC Glucose (mg/dL) 411 H* 420 H* (65-110) mg/dL Random Glucose (65-105) mg/dL Lactic Acid (0.7-2.1) mmol/L Calcium (8.6-10.4) mg/dl Phosphorus (2.5-4.5) mg/dL Magnesium (1.6-2.3) mg/dL Total Bilirubin (0.2-1.3) mg/dL AST (14-36) U/L ALT (9-52) U/L Alkaline Phosphatase (38-126) U/L Ammonia (9-33) umol/L Total Protein (6.3-8.3) g/dL Albumin (3.5-5.0) g/dL Globulin (2.2-3.9) gm/dL Albumin/Globulin Ratio (1.0-2.1) Arterial Blood Potassium (3.6-5.2) mmol/L Urine Color (YELLOW) Urine Clarity (Clear) Urine pH (5.0-8.0) Ur Specific [place] (1.003-1.030) Urine Protein (NEGATIVE) mg/dL Urine Glucose (UA) (Normal) mg/dL Urine Ketones (NEGATIVE) mg/dL Urine Blood (NEGATIVE) Urine Nitrate (NEGATIVE) Urine Bilirubin (NEGATIVE) Urine Urobilinogen (0.2-1.0) mg/dL Ur Leukocyte Esterase (Negative) Jaxon/uL Urine WBC (Auto) (0-5) /hpf Ur Squamous Epith Cells (0-5) /hpf Urine Bacteria (<OCC) Blood Type Antibody Screen Antibody Identification 11/15/17 11/15/17 11/15/17 Range/Units 11:42 09:04 07:41 WBC (4.8-10.8) K/uL RBC (3.80-5.20) Mil/uL Hgb (11.0-16.0) g/dL Hct (34.0-47.0) % MCV (81.0-99.0) fL MCH (27.0-31.0) pg MCHC (33.0-37.0) g/dL RDW (11.5-14.5) % Plt Count (130-400) K/uL MPV (7.2-11.7) fL Neut % (Auto) (50.0-75.0) % Lymph % (Auto) (20.0-40.0) % Sharp % (Auto) (0.0-10.0) % Eos % (Auto) (0.0-4.0) % Baso % (Auto) (0.0-2.0) % Neut # (1.8-7.0) K/uL Lymph # (1.0-4.3) K/uL Sharp # (0.0-0.8) K/uL Eos # (0.0-0.7) K/uL Baso # (0.0-0.2) K/uL Neutrophils % (Manual) (50-75) % Band Neutrophils % (0-2) % Lymphocytes % (Manual) (20-40) % Monocytes % (Manual) (0-10) % Eosinophils % (Manual) (0-4) % Platelet Estimate (NORMAL) Polychromasia Anisocytosis (manual) Tear Drop Cells Ovalocytes Rouleaux APTT (21-34) SECONDS Puncture Site pCO2 (35-45) mm/Hg pO2 (80-100) mm/Hg HCO3 (21-28) mmol/L ABG pH (7.35-7.45) ABG Total CO2 (22-28) mmol/L ABG O2 Saturation (95-98) % ABG Base Excess (-2.0-3.0) mmol/L Curt Test ABG Potassium (3.6-5.2) mmol/L A-a O2 Difference mm/Hg Respiratory Index Sodium (132-148) mmol/l Chloride (98-107) mmol/L Glucose (65-105) mg/dl Lactate (0.7-2.1) mmol/L Vent Mode FiO2 % Crit Value Called To Crit Value Called By Crit Value Read Back Blood Gas Notified Time Potassium (3.6-5.2) mmol/L Carbon Dioxide (22-30) mmol/L Anion Gap (10-20) BUN (7-17) mg/dL Creatinine (0.7-1.2) mg/dL Est GFR ( Amer) Est GFR (Non-Af Amer) POC Glucose (mg/dL) 457 H* 398 H (65-110) mg/dL Random Glucose (65-105) mg/dL Lactic Acid (0.7-2.1) mmol/L Calcium (8.6-10.4) mg/dl Phosphorus (2.5-4.5) mg/dL Magnesium (1.6-2.3) mg/dL Total Bilirubin (0.2-1.3) mg/dL AST (14-36) U/L ALT (9-52) U/L Alkaline Phosphatase (38-126) U/L Ammonia (9-33) umol/L Total Protein (6.3-8.3) g/dL Albumin (3.5-5.0) g/dL Globulin (2.2-3.9) gm/dL Albumin/Globulin Ratio (1.0-2.1) Arterial Blood Potassium (3.6-5.2) mmol/L Urine Color Yellow (YELLOW) Urine Clarity Clear (Clear) Urine pH 5.0 (5.0-8.0) Ur Specific [place] 1.014 (1.003-1.030) Urine Protein Negative (NEGATIVE) mg/dL Urine Glucose (UA) 2+ H (Normal) mg/dL Urine Ketones Negative (NEGATIVE) mg/dL Urine Blood Negative (NEGATIVE) Urine Nitrate Negative (NEGATIVE) Urine Bilirubin Negative (NEGATIVE) Urine Urobilinogen Normal (0.2-1.0) mg/dL Ur Leukocyte Esterase Neg (Negative) Jaxon/uL Urine WBC (Auto) 6 H (0-5) /hpf Ur Squamous Epith Cells 1 (0-5) /hpf Urine Bacteria Rare (<OCC) Blood Type Antibody Screen Antibody Identification 11/15/17 11/15/17 11/15/17 Range/Units 05:43 05:28 05:28 WBC (4.8-10.8) K/uL RBC (3.80-5.20) Mil/uL Hgb (11.0-16.0) g/dL Hct (34.0-47.0) % MCV (81.0-99.0) fL MCH (27.0-31.0) pg MCHC (33.0-37.0) g/dL RDW (11.5-14.5) % Plt Count (130-400) K/uL MPV (7.2-11.7) fL Neut % (Auto) (50.0-75.0) % Lymph % (Auto) (20.0-40.0) % Sharp % (Auto) (0.0-10.0) % Eos % (Auto) (0.0-4.0) % Baso % (Auto) (0.0-2.0) % Neut # (1.8-7.0) K/uL Lymph # (1.0-4.3) K/uL Sharp # (0.0-0.8) K/uL Eos # (0.0-0.7) K/uL Baso # (0.0-0.2) K/uL Neutrophils % (Manual) (50-75) % Band Neutrophils % (0-2) % Lymphocytes % (Manual) (20-40) % Monocytes % (Manual) (0-10) % Eosinophils % (Manual) (0-4) % Platelet Estimate (NORMAL) Polychromasia Anisocytosis (manual) Tear Drop Cells Ovalocytes Rouleaux APTT (21-34) SECONDS Puncture Site pCO2 (35-45) mm/Hg pO2 (80-100) mm/Hg HCO3 (21-28) mmol/L ABG pH (7.35-7.45) ABG Total CO2 (22-28) mmol/L ABG O2 Saturation (95-98) % ABG Base Excess (-2.0-3.0) mmol/L Curt Test ABG Potassium (3.6-5.2) mmol/L A-a O2 Difference mm/Hg Respiratory Index Sodium (132-148) mmol/l Chloride (98-107) mmol/L Glucose (65-105) mg/dl Lactate (0.7-2.1) mmol/L Vent Mode FiO2 % Crit Value Called To Crit Value Called By Crit Value Read Back Blood Gas Notified Time Potassium (3.6-5.2) mmol/L Carbon Dioxide (22-30) mmol/L Anion Gap (10-20) BUN (7-17) mg/dL Creatinine (0.7-1.2) mg/dL Est GFR ( Amer) Est GFR (Non-Af Amer) POC Glucose (mg/dL) (65-110) mg/dL Random Glucose (65-105) mg/dL Lactic Acid 3.1 H (0.7-2.1) mmol/L Calcium (8.6-10.4) mg/dl Phosphorus 4.4 (2.5-4.5) mg/dL Magnesium 1.3 L (1.6-2.3) mg/dL Total Bilirubin (0.2-1.3) mg/dL AST (14-36) U/L ALT (9-52) U/L Alkaline Phosphatase (38-126) U/L Ammonia 20 D (9-33) umol/L Total Protein (6.3-8.3) g/dL Albumin (3.5-5.0) g/dL Globulin (2.2-3.9) gm/dL Albumin/Globulin Ratio (1.0-2.1) Arterial Blood Potassium (3.6-5.2) mmol/L Urine Color (YELLOW) Urine Clarity (Clear) Urine pH (5.0-8.0) Ur Specific [place] (1.003-1.030) Urine Protein (NEGATIVE) mg/dL Urine Glucose (UA) (Normal) mg/dL Urine Ketones (NEGATIVE) mg/dL Urine Blood (NEGATIVE) Urine Nitrate (NEGATIVE) Urine Bilirubin (NEGATIVE) Urine Urobilinogen (0.2-1.0) mg/dL Ur Leukocyte Esterase (Negative) Jaxon/uL Urine WBC (Auto) (0-5) /hpf Ur Squamous Epith Cells (0-5) /hpf Urine Bacteria (<OCC) Blood Type Antibody Screen Antibody Identification 11/15/17 11/15/17 11/15/17 Range/Units 05:28 05:28 05:28 WBC 8.8 (4.8-10.8) K/uL RBC 2.28 L (3.80-5.20) Mil/uL Hgb 7.4 L (11.0-16.0) g/dL Hct 21.2 L (34.0-47.0) % MCV 92.6 (81.0-99.0) fL MCH 32.2 H (27.0-31.0) pg MCHC 34.8 (33.0-37.0) g/dL RDW 17.1 H (11.5-14.5) % Plt Count 33 L D (130-400) K/uL MPV 8.4 (7.2-11.7) fL Neut % (Auto) (50.0-75.0) % Lymph % (Auto) (20.0-40.0) % Sharp % (Auto) (0.0-10.0) % Eos % (Auto) (0.0-4.0) % Baso % (Auto) (0.0-2.0) % Neut # (1.8-7.0) K/uL Lymph # (1.0-4.3) K/uL Sharp # (0.0-0.8) K/uL Eos # (0.0-0.7) K/uL Baso # (0.0-0.2) K/uL Neutrophils % (Manual) (50-75) % Band Neutrophils % (0-2) % Lymphocytes % (Manual) (20-40) % Monocytes % (Manual) (0-10) % Eosinophils % (Manual) (0-4) % Platelet Estimate (NORMAL) Polychromasia Anisocytosis (manual) Tear Drop Cells Ovalocytes Rouleaux APTT 37 H (21-34) SECONDS Puncture Site pCO2 (35-45) mm/Hg pO2 (80-100) mm/Hg HCO3 (21-28) mmol/L ABG pH (7.35-7.45) ABG Total CO2 (22-28) mmol/L ABG O2 Saturation (95-98) % ABG Base Excess (-2.0-3.0) mmol/L Curt Test ABG Potassium (3.6-5.2) mmol/L A-a O2 Difference mm/Hg Respiratory Index Sodium 131 L (132-148) mmol/l Chloride 96 L (98-107) mmol/L Glucose (65-105) mg/dl Lactate (0.7-2.1) mmol/L Vent Mode FiO2 % Crit Value Called To Crit Value Called By Crit Value Read Back Blood Gas Notified Time Potassium 3.9 (3.6-5.2) mmol/L Carbon Dioxide 29 (22-30) mmol/L Anion Gap 10 (10-20) BUN 47 H (7-17) mg/dL Creatinine 1.3 H (0.7-1.2) mg/dL Est GFR ( Amer) 49 Est GFR (Non-Af Amer) 40 POC Glucose (mg/dL) (65-110) mg/dL Random Glucose 441 H* (65-105) mg/dL Lactic Acid (0.7-2.1) mmol/L Calcium 7.9 L (8.6-10.4) mg/dl Phosphorus (2.5-4.5) mg/dL Magnesium (1.6-2.3) mg/dL Total Bilirubin 6.7 H (0.2-1.3) mg/dL AST 29 (14-36) U/L ALT 30 (9-52) U/L Alkaline Phosphatase 83 (38-126) U/L Ammonia (9-33) umol/L Total Protein 4.2 L (6.3-8.3) g/dL Albumin 2.0 L (3.5-5.0) g/dL Globulin 2.2 (2.2-3.9) gm/dL Albumin/Globulin Ratio 0.9 L (1.0-2.1) Arterial Blood Potassium (3.6-5.2) mmol/L Urine Color (YELLOW) Urine Clarity (Clear) Urine pH (5.0-8.0) Ur Specific [place] (1.003-1.030) Urine Protein (NEGATIVE) mg/dL Urine Glucose (UA) (Normal) mg/dL Urine Ketones (NEGATIVE) mg/dL Urine Blood (NEGATIVE) Urine Nitrate (NEGATIVE) Urine Bilirubin (NEGATIVE) Urine Urobilinogen (0.2-1.0) mg/dL Ur Leukocyte Esterase (Negative) Jaxon/uL Urine WBC (Auto) (0-5) /hpf Ur Squamous Epith Cells (0-5) /hpf Urine Bacteria (<OCC) Blood Type Antibody Screen Antibody Identification 11/15/17 11/15/17 11/15/17 Range/Units 00:23 00:23 00:01 WBC 13.2 H (4.8-10.8) K/uL RBC 2.01 L (3.80-5.20) Mil/uL Hgb 6.4 L* (11.0-16.0) g/dL Hct 18.6 L (34.0-47.0) % MCV 92.7 (81.0-99.0) fL MCH 32.0 H (27.0-31.0) pg MCHC 34.6 (33.0-37.0) g/dL RDW 20.4 H (11.5-14.5) % Plt Count 5 L* D (130-400) K/uL MPV 10.5 (7.2-11.7) fL Neut % (Auto) 86.6 H (50.0-75.0) % Lymph % (Auto) 9.0 L (20.0-40.0) % Sharp % (Auto) 3.9 (0.0-10.0) % Eos % (Auto) 0.2 (0.0-4.0) % Baso % (Auto) 0.3 (0.0-2.0) % Neut # 11.4 H (1.8-7.0) K/uL Lymph # 1.2 (1.0-4.3) K/uL Sharp # 0.5 (0.0-0.8) K/uL Eos # 0.0 (0.0-0.7) K/uL Baso # 0.0 (0.0-0.2) K/uL Neutrophils % (Manual) 89 H (50-75) % Band Neutrophils % 5 H (0-2) % Lymphocytes % (Manual) 4 L (20-40) % Monocytes % (Manual) 2 (0-10) % Eosinophils % (Manual) (0-4) % Platelet Estimate Markedly decreased L (NORMAL) Polychromasia Moderate Anisocytosis (manual) Moderate Tear Drop Cells Slight Ovalocytes Slight Rouleaux APTT (21-34) SECONDS Puncture Site Lb pCO2 41 (35-45) mm/Hg pO2 93 (80-100) mm/Hg HCO3 27.0 (21-28) mmol/L ABG pH 7.43 (7.35-7.45) ABG Total CO2 28.5 H (22-28) mmol/L ABG O2 Saturation 100.5 H (95-98) % ABG Base Excess 2.6 (-2.0-3.0) mmol/L Curt Test Na ABG Potassium 3.9 (3.6-5.2) mmol/L A-a O2 Difference 569.0 mm/Hg Respiratory Index 6.1 Sodium 130 L 139.0 (132-148) mmol/l Chloride 98 106.0 (98-107) mmol/L Glucose 442 H* (65-105) mg/dl Lactate 5.2 H* (0.7-2.1) mmol/L Vent Mode Non rbreather FiO2 100.0 % Crit Value Called To Dr russo Crit Value Called By Konstantin wheat/rt Crit Value Read Back Y Blood Gas Notified Time 10 Potassium 4.1 (3.6-5.2) mmol/L Carbon Dioxide 24 (22-30) mmol/L Anion Gap 12 (10-20) BUN 46 H (7-17) mg/dL Creatinine 1.3 H (0.7-1.2) mg/dL Est GFR ( Amer) 49 Est GFR (Non-Af Amer) 40 POC Glucose (mg/dL) (65-110) mg/dL Random Glucose 413 H* D (65-105) mg/dL Lactic Acid (0.7-2.1) mmol/L Calcium 7.5 L (8.6-10.4) mg/dl Phosphorus 4.0 (2.5-4.5) mg/dL Magnesium 1.4 L (1.6-2.3) mg/dL Total Bilirubin 5.2 H (0.2-1.3) mg/dL AST 41 H (14-36) U/L ALT 31 (9-52) U/L Alkaline Phosphatase 85 (38-126) U/L Ammonia (9-33) umol/L Total Protein 4.3 L (6.3-8.3) g/dL Albumin 2.0 L (3.5-5.0) g/dL Globulin 2.3 (2.2-3.9) gm/dL Albumin/Globulin Ratio 0.9 L (1.0-2.1) Arterial Blood Potassium 3.9 (3.6-5.2) mmol/L Urine Color (YELLOW) Urine Clarity (Clear) Urine pH (5.0-8.0) Ur Specific [place] (1.003-1.030) Urine Protein (NEGATIVE) mg/dL Urine Glucose (UA) (Normal) mg/dL Urine Ketones (NEGATIVE) mg/dL Urine Blood (NEGATIVE) Urine Nitrate (NEGATIVE) Urine Bilirubin (NEGATIVE) Urine Urobilinogen (0.2-1.0) mg/dL Ur Leukocyte Esterase (Negative) Jaxon/uL Urine WBC (Auto) (0-5) /hpf Ur Squamous Epith Cells (0-5) /hpf Urine Bacteria (<OCC) Blood Type Antibody Screen Antibody Identification 11/14/17 11/13/17 Range/Units 21:15 06:39 WBC (4.8-10.8) K/uL RBC (3.80-5.20) Mil/uL Hgb (11.0-16.0) g/dL Hct (34.0-47.0) % MCV (81.0-99.0) fL MCH (27.0-31.0) pg MCHC (33.0-37.0) g/dL RDW (11.5-14.5) % Plt Count (130-400) K/uL MPV (7.2-11.7) fL Neut % (Auto) (50.0-75.0) % Lymph % (Auto) (20.0-40.0) % Sharp % (Auto) (0.0-10.0) % Eos % (Auto) (0.0-4.0) % Baso % (Auto) (0.0-2.0) % Neut # (1.8-7.0) K/uL Lymph # (1.0-4.3) K/uL Sharp # (0.0-0.8) K/uL Eos # (0.0-0.7) K/uL Baso # (0.0-0.2) K/uL Neutrophils % (Manual) (50-75) % Band Neutrophils % (0-2) % Lymphocytes % (Manual) (20-40) % Monocytes % (Manual) (0-10) % Eosinophils % (Manual) (0-4) % Platelet Estimate (NORMAL) Polychromasia Anisocytosis (manual) Tear Drop Cells Ovalocytes Rouleaux APTT (21-34) SECONDS Puncture Site pCO2 (35-45) mm/Hg pO2 (80-100) mm/Hg HCO3 (21-28) mmol/L ABG pH (7.35-7.45) ABG Total CO2 (22-28) mmol/L ABG O2 Saturation (95-98) % ABG Base Excess (-2.0-3.0) mmol/L Curt Test ABG Potassium (3.6-5.2) mmol/L A-a O2 Difference mm/Hg Respiratory Index Sodium (132-148) mmol/l Chloride (98-107) mmol/L Glucose (65-105) mg/dl Lactate (0.7-2.1) mmol/L Vent Mode FiO2 % Crit Value Called To Crit Value Called By Crit Value Read Back Blood Gas Notified Time Potassium (3.6-5.2) mmol/L Carbon Dioxide (22-30) mmol/L Anion Gap (10-20) BUN (7-17) mg/dL Creatinine (0.7-1.2) mg/dL Est GFR ( Amer) Est GFR (Non-Af Amer) POC Glucose (mg/dL) 421 H* (65-110) mg/dL Random Glucose (65-105) mg/dL Lactic Acid (0.7-2.1) mmol/L Calcium (8.6-10.4) mg/dl Phosphorus (2.5-4.5) mg/dL Magnesium (1.6-2.3) mg/dL Total Bilirubin (0.2-1.3) mg/dL AST (14-36) U/L ALT (9-52) U/L Alkaline Phosphatase (38-126) U/L Ammonia (9-33) umol/L Total Protein (6.3-8.3) g/dL Albumin (3.5-5.0) g/dL Globulin (2.2-3.9) gm/dL Albumin/Globulin Ratio (1.0-2.1) Arterial Blood Potassium (3.6-5.2) mmol/L Urine Color (YELLOW) Urine Clarity (Clear) Urine pH (5.0-8.0) Ur Specific [place] (1.003-1.030) Urine Protein (NEGATIVE) mg/dL Urine Glucose (UA) (Normal) mg/dL Urine Ketones (NEGATIVE) mg/dL Urine Blood (NEGATIVE) Urine Nitrate (NEGATIVE) Urine Bilirubin (NEGATIVE) Urine Urobilinogen (0.2-1.0) mg/dL Ur Leukocyte Esterase (Negative) Jaxon/uL Urine WBC (Auto) (0-5) /hpf Ur Squamous Epith Cells (0-5) /hpf Urine Bacteria (<OCC) Blood Type O POSITIVE Antibody Screen Positive Antibody Identification Cancelled Laboratory Results - last 24 hr 11/13/17 11/14/17 11/15/17 06:39 21:15 00:01 WBC RBC Hgb Hct MCV MCH MCHC RDW Plt Count MPV Neut % (Auto) Lymph % (Auto) Sharp % (Auto) Eos % (Auto) Baso % (Auto) Neut # Lymph # Sharp # Eos # Baso # Neutrophils % (Manual) Band Neutrophils % Lymphocytes % (Manual) Monocytes % (Manual) Eosinophils % (Manual) Platelet Estimate Polychromasia Anisocytosis (manual) Tear Drop Cells Ovalocytes Rouleaux APTT Puncture Site Lb pCO2 41 pO2 93 HCO3 27.0 ABG pH 7.43 ABG Total CO2 28.5 H ABG O2 Saturation 100.5 H ABG Base Excess 2.6 Curt Test Na ABG Potassium 3.9 A-a O2 Difference 569.0 Respiratory Index 6.1 Sodium 139.0 Chloride 106.0 Glucose 442 H* Lactate 5.2 H* Vent Mode Non rbreather FiO2 100.0 Crit Value Called To Dr russo Crit Value Called By Konstantin wheat/rt Crit Value Read Back Y Blood Gas Notified Time 10 Potassium Carbon Dioxide Anion Gap BUN Creatinine Est GFR ( Amer) Est GFR (Non-Af Amer) POC Glucose (mg/dL) 421 H* Random Glucose Lactic Acid Calcium Phosphorus Magnesium Total Bilirubin AST ALT Alkaline Phosphatase Ammonia Total Protein Albumin Globulin Albumin/Globulin Ratio Arterial Blood Potassium 3.9 Urine Color Urine Clarity Urine pH Ur Specific [place] Urine Protein Urine Glucose (UA) Urine Ketones Urine Blood Urine Nitrate Urine Bilirubin Urine Urobilinogen Ur Leukocyte Esterase Urine WBC (Auto) Ur Squamous Epith Cells Urine Bacteria Blood Type O POSITIVE Antibody Screen Positive Antibody Identification Cancelled 11/15/17 11/15/17 11/15/17 00:23 00:23 05:28 WBC 13.2 H 8.8 RBC 2.01 L 2.28 L Hgb 6.4 L* 7.4 L Hct 18.6 L 21.2 L MCV 92.7 92.6 MCH 32.0 H 32.2 H MCHC 34.6 34.8 RDW 20.4 H 17.1 H Plt Count 5 L* D 33 L D MPV 10.5 8.4 Neut % (Auto) 86.6 H Lymph % (Auto) 9.0 L Sharp % (Auto) 3.9 Eos % (Auto) 0.2 Baso % (Auto) 0.3 Neut # 11.4 H Lymph # 1.2 Sharp # 0.5 Eos # 0.0 Baso # 0.0 Neutrophils % (Manual) 89 H Band Neutrophils % 5 H Lymphocytes % (Manual) 4 L Monocytes % (Manual) 2 Eosinophils % (Manual) Platelet Estimate Markedly decreased L Polychromasia Moderate Anisocytosis (manual) Moderate Tear Drop Cells Slight Ovalocytes Slight Rouleaux APTT Puncture Site pCO2 pO2 HCO3 ABG pH ABG Total CO2 ABG O2 Saturation ABG Base Excess Curt Test ABG Potassium A-a O2 Difference Respiratory Index Sodium 130 L Chloride 98 Glucose Lactate Vent Mode FiO2 Crit Value Called To Crit Value Called By Crit Value Read Back Blood Gas Notified Time Potassium 4.1 Carbon Dioxide 24 Anion Gap 12 BUN 46 H Creatinine 1.3 H Est GFR ( Amer) 49 Est GFR (Non-Af Amer) 40 POC Glucose (mg/dL) Random Glucose 413 H* D Lactic Acid Calcium 7.5 L Phosphorus 4.0 Magnesium 1.4 L Total Bilirubin 5.2 H AST 41 H ALT 31 Alkaline Phosphatase 85 Ammonia Total Protein 4.3 L Albumin 2.0 L Globulin 2.3 Albumin/Globulin Ratio 0.9 L Arterial Blood Potassium Urine Color Urine Clarity Urine pH Ur Specific [place] Urine Protein Urine Glucose (UA) Urine Ketones Urine Blood Urine Nitrate Urine Bilirubin Urine Urobilinogen Ur Leukocyte Esterase Urine WBC (Auto) Ur Squamous Epith Cells Urine Bacteria Blood Type Antibody Screen Antibody Identification 11/15/17 11/15/17 11/15/17 05:28 05:28 05:28 WBC RBC Hgb Hct MCV MCH MCHC RDW Plt Count MPV Neut % (Auto) Lymph % (Auto) Sharp % (Auto) Eos % (Auto) Baso % (Auto) Neut # Lymph # Sharp # Eos # Baso # Neutrophils % (Manual) Band Neutrophils % Lymphocytes % (Manual) Monocytes % (Manual) Eosinophils % (Manual) Platelet Estimate Polychromasia Anisocytosis (manual) Tear Drop Cells Ovalocytes Rouleaux APTT 37 H Puncture Site pCO2 pO2 HCO3 ABG pH ABG Total CO2 ABG O2 Saturation ABG Base Excess Curt Test ABG Potassium A-a O2 Difference Respiratory Index Sodium 131 L Chloride 96 L Glucose Lactate Vent Mode FiO2 Crit Value Called To Crit Value Called By Crit Value Read Back Blood Gas Notified Time Potassium 3.9 Carbon Dioxide 29 Anion Gap 10 BUN 47 H Creatinine 1.3 H Est GFR ( Amer) 49 Est GFR (Non-Af Amer) 40 POC Glucose (mg/dL) Random Glucose 441 H* Lactic Acid Calcium 7.9 L Phosphorus 4.4 Magnesium 1.3 L Total Bilirubin 6.7 H AST 29 ALT 30 Alkaline Phosphatase 83 Ammonia Total Protein 4.2 L Albumin 2.0 L Globulin 2.2 Albumin/Globulin Ratio 0.9 L Arterial Blood Potassium Urine Color Urine Clarity Urine pH Ur Specific [place] Urine Protein Urine Glucose (UA) Urine Ketones Urine Blood Urine Nitrate Urine Bilirubin Urine Urobilinogen Ur Leukocyte Esterase Urine WBC (Auto) Ur Squamous Epith Cells Urine Bacteria Blood Type Antibody Screen Antibody Identification 11/15/17 11/15/17 11/15/17 05:28 05:43 07:41 WBC RBC Hgb Hct MCV MCH MCHC RDW Plt Count MPV Neut % (Auto) Lymph % (Auto) Sharp % (Auto) Eos % (Auto) Baso % (Auto) Neut # Lymph # Sharp # Eos # Baso # Neutrophils % (Manual) Band Neutrophils % Lymphocytes % (Manual) Monocytes % (Manual) Eosinophils % (Manual) Platelet Estimate Polychromasia Anisocytosis (manual) Tear Drop Cells Ovalocytes Rouleaux APTT Puncture Site pCO2 pO2 HCO3 ABG pH ABG Total CO2 ABG O2 Saturation ABG Base Excess Curt Test ABG Potassium A-a O2 Difference Respiratory Index Sodium Chloride Glucose Lactate Vent Mode FiO2 Crit Value Called To Crit Value Called By Crit Value Read Back Blood Gas Notified Time Potassium Carbon Dioxide Anion Gap BUN Creatinine Est GFR ( Amer) Est GFR (Non-Af Amer) POC Glucose (mg/dL) 398 H Random Glucose Lactic Acid 3.1 H Calcium Phosphorus Magnesium Total Bilirubin AST ALT Alkaline Phosphatase Ammonia 20 D Total Protein Albumin Globulin Albumin/Globulin Ratio Arterial Blood Potassium Urine Color Urine Clarity Urine pH Ur Specific [place] Urine Protein Urine Glucose (UA) Urine Ketones Urine Blood Urine Nitrate Urine Bilirubin Urine Urobilinogen Ur Leukocyte Esterase Urine WBC (Auto) Ur Squamous Epith Cells Urine Bacteria Blood Type Antibody Screen Antibody Identification 11/15/17 11/15/17 11/15/17 09:04 11:42 11:44 WBC RBC Hgb Hct MCV MCH MCHC RDW Plt Count MPV Neut % (Auto) Lymph % (Auto) Sharp % (Auto) Eos % (Auto) Baso % (Auto) Neut # Lymph # Sharp # Eos # Baso # Neutrophils % (Manual) Band Neutrophils % Lymphocytes % (Manual) Monocytes % (Manual) Eosinophils % (Manual) Platelet Estimate Polychromasia Anisocytosis (manual) Tear Drop Cells Ovalocytes Rouleaux APTT Puncture Site pCO2 pO2 HCO3 ABG pH ABG Total CO2 ABG O2 Saturation ABG Base Excess Curt Test ABG Potassium A-a O2 Difference Respiratory Index Sodium Chloride Glucose Lactate Vent Mode FiO2 Crit Value Called To Crit Value Called By Crit Value Read Back Blood Gas Notified Time Potassium Carbon Dioxide Anion Gap BUN Creatinine Est GFR ( Amer) Est GFR (Non-Af Amer) POC Glucose (mg/dL) 457 H* 420 H* Random Glucose Lactic Acid Calcium Phosphorus Magnesium Total Bilirubin AST ALT Alkaline Phosphatase Ammonia Total Protein Albumin Globulin Albumin/Globulin Ratio Arterial Blood Potassium Urine Color Yellow Urine Clarity Clear Urine pH 5.0 Ur Specific [place] 1.014 Urine Protein Negative Urine Glucose (UA) 2+ H Urine Ketones Negative Urine Blood Negative Urine Nitrate Negative Urine Bilirubin Negative Urine Urobilinogen Normal Ur Leukocyte Esterase Neg Urine WBC (Auto) 6 H Ur Squamous Epith Cells 1 Urine Bacteria Rare Blood Type Antibody Screen Antibody Identification 11/15/17 11/15/17 16:13 16:26 WBC 5.0 RBC 2.30 L Hgb 7.3 L Hct 20.9 L MCV 90.8 MCH 31.5 H MCHC 34.7 RDW 16.7 H Plt Count 27 L* MPV 7.7 Neut % (Auto) 83.5 H Lymph % (Auto) 6.7 L Sharp % (Auto) 7.4 Eos % (Auto) 2.3 Baso % (Auto) 0.1 Neut # 4.2 Lymph # 0.3 L Sharp # 0.4 Eos # 0.1 Baso # 0.0 Neutrophils % (Manual) 83 H Band Neutrophils % Lymphocytes % (Manual) 10 L Monocytes % (Manual) 5 Eosinophils % (Manual) 2 Platelet Estimate Markedly decreased L Polychromasia Moderate Anisocytosis (manual) Slight Tear Drop Cells Slight Ovalocytes Slight Rouleaux Slight APTT Puncture Site pCO2 pO2 HCO3 ABG pH ABG Total CO2 ABG O2 Saturation ABG Base Excess Curt Test ABG Potassium A-a O2 Difference Respiratory Index Sodium Chloride Glucose Lactate Vent Mode FiO2 Crit Value Called To Crit Value Called By Crit Value Read Back Blood Gas Notified Time Potassium Carbon Dioxide Anion Gap BUN Creatinine Est GFR ( Amer) Est GFR (Non-Af Amer) POC Glucose (mg/dL) 411 H* Random Glucose Lactic Acid Calcium Phosphorus Magnesium Total Bilirubin AST ALT Alkaline Phosphatase Ammonia Total Protein Albumin Globulin Albumin/Globulin Ratio Arterial Blood Potassium Urine Color Urine Clarity Urine pH Ur Specific [place] Urine Protein Urine Glucose (UA) Urine Ketones Urine Blood Urine Nitrate Urine Bilirubin Urine Urobilinogen Ur Leukocyte Esterase Urine WBC (Auto) Ur Squamous Epith Cells Urine Bacteria Blood Type Antibody Screen Antibody Identification Critical Care Progress Note - Nutrition Nutrition: Nutrition Category Date Time Status Consistent Carbohydrate [DIET] Diets 11/13/17 Dinner Active Attending/Attestation - Attestation I have personally seen and examined this patient.: Yes I have fully participated in the care of the patient.: Yes I have reviewed all pertinent clinical information: Yes Notes (Text): 11/15/17 18:48 I have seen and examined the patient. Medical records, lab studies, and imaging were reviewed by me and a management plan was formulated on multidisciplinary rounds with resident Dr. Wheat. I agree with their documented assessment and plan. Hepatic encephalopathy on lactulose and Rifaximin. Sepsis of unknown source, leucocytosis downtrending. Clinically patient is not improving. Critical Care Time 35 minutes. Multi-disciplinary rounds were performed with house staff, nursing, speech therapy, respiratory therapy, pharmacy and nutrition with integrated input from the primary team/attending and other consulting services. The documented time is cumulative and includes review of patient data/exams/labs/chart review and examination of the patient on rounds and throughout the day; time is exclusive of any procedures or teaching time. 11/15/17 18:53
[2017-11-15] MEDS: Albuterol-Ipratrop 3 mg / 0.5 (3 ml) UD INH SCH (20:11)
[2017-11-15 20:37] LABS: INR 1.6; PROTHROMBIN TIME 18.7 SECONDS (9.7-12.2)
--- NOTE | 2017-11-15 23:32 | CARD ---
APPROVED REPORT EKG Measurement Heart [id number] <Conclusion> Sinus tachycardia Cannot rule out lateral infarct, age undetermined Abnormal ECG
--- NOTE | 2017-11-15 23:33 | CARD ---
APPROVED REPORT EKG Measurement Heart [id number] <Conclusion> Sinus tachycardia Otherwise normal ECG
[2017-11-16] MEDS: Albuterol-Ipratrop 3 mg / 0.5 (3 ml) UD INH SCH ×5 (01:18→19:17)
[2017-11-16] MEDS: Vitamins A & D Oint UD Foilpak TOP SCH ×6 (04:00→20:48)
[2017-11-16 06:33] LABS: BASO # 0.1 K/uL (0.0-0.2); BASO % 1.5 % (0.0-2.0); EOS # 0.1 K/uL (0.0-0.7); HEMOGLOBIN 6.9 g/dL (11.0-16.0); LYMPH # 0.4 K/uL (1.0-4.3); LYMPH % 10.2 % (20.0-40.0); MEAN CELL VOLUME 91.4 fL (81.0-99.0); MEAN CORPUSCULAR HEMOGLOBIN 32.3 pg (27.0-31.0); MEAN CORPUSCULAR HGB CONC 35.3 g/dL (33.0-37.0); MEAN PLATELET VOLUME 7.8 fL (7.2-11.7); MONO # 0.2 K/uL (0.0-0.8); MONO % 5.6 % (0.0-10.0); NEUT # 2.8 K/uL (1.8-7.0); NEUT % 79.7 % (50.0-75.0); NRBC % 0.3 % (0.0-2.0); RBC 2.14 Mil/uL (3.80-5.20); RED CELL DISTRIBUTION WIDTH 16.9 % (11.5-14.5); WHITE BLOOD COUNT 3.5 K/uL (4.8-10.8)
[2017-11-16 06:47] LABS: ALBUMIN 2.2 g/dL (3.5-5.0); CALCIUM 8.3 mg/dl (8.6-10.4); MAGNESIUM 1.5 mg/dL (1.6-2.3)
[2017-11-16] MEDS: (Lantus) Insulin Glargine, Recombinant SC SCH ×2 (09:10→21:20)
[2017-11-16] MEDS: Vancomycin 750mg/D5W 150 ml 150 ML IVPB SCH ×2 (09:13→21:18)
[2017-11-16] MEDS: Aztreonam 1 GM in Sodium Chloride 0.9% 100 ML IVPB SCH ×2 (09:28→20:08)
[2017-11-16] MEDS: (Novolog) Insulin Aspart, Recombinant 100 u/ml 10 ml vial SC SCH ×4 (09:32→21:19)
--- NOTE | 2017-11-16 10:52 | CP.PCM.PN ---
Subjective - Date & Time of Evaluation Date of Evaluation: 11/16/17 Time of Evaluation: 10:50 - Subjective Subjective: CC: Hepatic encephalopathy In ICU. PO meds not given. Remains lethargic. Hgb dropped, without active GI bleeding noted. Patient has chronic pancytopenia/ cirrhosis with hypersplenism Urine output low. Rec: NGT placement for meds and nutrition Objective - Vital Signs/Intake and Output Vital Signs (last 24 hours): Temp Pulse Resp BP Pulse Ox 98.6 F 82 16 121/45 L 90 L 11/16/17 08:00 11/16/17 08:00 11/16/17 08:00 11/16/17 07:05 11/16/17 08:00 Intake and Output: 11/16/17 11/16/17 06:59 18:59 Intake Total 590 30 Output Total 550 125 Balance 40 -95 - Medications Medications: Current Medications Albuterol/Ipratropium (Duoneb 3 Mg/0.5 Mg (3 Ml) Ud) [address] [facility] Last Admin: 11/16/17 07:46 Dose: 3 ml Bumetanide (Bumex) [address] [facility] Last Admin: 11/16/17 09:09 Dose: 1 mg Diphenhydramine HCl (Benadryl) 25 mg IVP Q6 PRN PRN Reason: Itching / Pruritus Last Admin: 11/11/17 05:55 Dose: 25 mg Duloxetine HCl (Cymbalta) [address] [facility] Last Admin: 11/16/17 09:20 Dose: Not Given Ferrous Sulfate (Feosol) [address] [facility] Last Admin: 11/16/17 09:20 Dose: Not Given Gabapentin (Neurontin) [address] [facility] Last Admin: 11/16/17 09:18 Dose: Not Given Aztreonam 1 gm/ Sodium (Chloride) 100 mls @ 100 mls/hr IVPB Q12H [facility] Last Admin: 11/16/17 09:28 Dose: 100 mls/hr Vancomycin HCl (Vancocin 750mg/D5w 150 Ml) 150 mls @ 150 mls/hr IVPB Q12H [facility] Last Admin: 11/16/17 09:13 Dose: 150 mls/hr Insulin Aspart (Novolog) [address] [facility] PRN Reason: Protocol Last Admin: 11/16/17 09:32 Dose: 8 unit Insulin Glargine (Lantus) [address] [facility] Last Admin: 11/16/17 09:10 Dose: 10 units Lactulose (Enulose) [address] [facility] Last Admin: 11/16/17 09:35 Dose: 200 gm Pantoprazole Sodium (Protonix Inj) [address] [facility] Last Admin: 11/16/17 09:03 Dose: 40 mg Propranolol HCl (Inderal) [address] [facility] Last Admin: 11/16/17 09:09 Dose: Not Given Rifaximin (Xifaxan) [address] [facility] Last Admin: 11/16/17 09:19 Dose: Not Given Temazepam (Restoril) [address] [facility] Last Admin: 11/15/17 22:03 Dose: Not Given Vitamin A (Vitamin A & D Oint Ud Foilpak) [address] [facility] Last Admin: 11/16/17 08:09 Dose: 1 ea - Labs Labs: 11/16/17 06:22 11/16/17 06:22 PT 18.7 SECONDS (9.7-12.2) H D 11/15/17 20:27 INR 1.6 D 11/15/17 20:27 APTT 37 SECONDS (21-34) H 11/15/17 05:28 - Constitutional Appears: Toxic - Head Exam Head Exam: NORMOCEPHALIC - Eye Exam Eye Exam: Scleral icterus - Respiratory Exam Respiratory Exam: Clear to Ausculation Bilateral - Cardiovascular Exam Cardiovascular Exam: REGULAR RHYTHM - GI/Abdominal Exam GI & Abdominal Exam: Soft. absent: Tenderness - Neurological Exam Neurological Exam: absent: Alert, Oriented x3 Assessment and Plan (1) Closed displaced intertrochanteric fracture of right femur Assessment & Plan: Orthopedic management Status: Acute (2) Anemia Assessment & Plan: Transfuse PRBC as needed Coagulopathic Status: Acute (3) Cirrhosis Assessment & Plan: Decompensated with encephalopathy Status: Acute (4) Coagulopathy Status: Acute (5) Hepatic encephalopathy Assessment & Plan: Recommend NG placement for meds and nutrition Status: Acute
[2017-11-16] MEDS: Albumin Human 25% (12.5 gm/50 ml) IV SCH ×2 (13:55→20:18)
[2017-11-16] MEDS: Magnesium Sulfate 1 gm in D5W 1 GM/100 ML BAG IVPB SCH ×2 (16:58→17:04)
--- NOTE | 2017-11-16 17:07 | CP.CCUPN ---
CCU Subjective - Physician Review Events Since Last Encounter (Free Text): 11/16/17 17:05 more alert today. CCU Objective - Vital Signs / Intake & Output Vital Signs (Last 4 hours): Vital Signs Temp Pulse Resp BP Pulse Ox 11/16/17 16:45 99.0 F 84 16 142/53 L 11/16/17 16:25 99.0 F 85 15 140/53 L 11/16/17 16:10 98.9 F 88 17 138/53 L 11/16/17 16:00 85 14 94 L 11/16/17 15:55 98.7 F 88 14 137/46 L 11/16/17 15:50 89 14 96 11/16/17 15:40 89 15 95 11/16/17 15:30 84 15 93 L 11/16/17 15:20 77 15 93 L 11/16/17 15:10 80 15 93 L 11/16/17 15:06 80 14 137/46 L 94 L 11/16/17 15:00 79 15 94 L 11/16/17 14:50 97.6 F 78 16 116/43 L 96 11/16/17 14:40 75 15 95 11/16/17 14:30 90 17 96 11/16/17 14:20 80 15 116/43 L 92 L 11/16/17 14:10 77 15 91 L 11/16/17 14:05 78 14 116/43 L 91 L 11/16/17 14:00 76 15 90 L 11/16/17 13:50 75 16 93 L 11/16/17 13:40 71 11 L 83 L 11/16/17 13:30 75 15 84 L 11/16/17 13:20 85 15 82 L 11/16/17 13:10 79 14 87 L Intake and Output (Last 8hrs): Intake & Output 11/16/17 11/16/17 11/16/17 06:59 14:59 22:59 Intake Total 370 660 50 Output Total 350 420 380 Balance 20 240 -330 Intake: Intake, IV Amount 50 250 0 Right Forearm 50 250 0 Oral 320 410 50 Blood Product 0 Apheresis Rbc Cp2d As3 Lr 0 1st Unit [id number] Output: Urine 350 420 80 Urethral (George) 350 420 80 Stool 0 300 Emesis 0 0 - Physical Exam Pupils: Positive for: PERRL Mouth: Positive for: Moist Mucous Membranes Respiratory/Chest: Positive for: Clear to Auscultation, Good Air Exchange. Negative for: Respiratory Distress, Accessory Muscle Use Cardiovascular: Positive for: Regular Rate and Rhythm, Normal S1, S2 Abdomen: Positive for: Tenderness (LLQ ), Normal Bowel Sounds. Negative for: Distention, Peritoneal Signs Upper Extremity: Positive for: Normal Inspection Lower Extremity: Positive for: Normal Inspection, Other (s/p ORIF right hip ) Neurological: Negative for: GCS=15 Skin: Positive for: Warm, Dry, Normal Color. Negative for: Rashes Psychiatric: Negative for: Oriented x 3 - Medications Active Medications: Active Medications Generic Name Dose Route Start Last Admin Trade Name Freq PRN Reason Stop Dose Admin Albumin Human 12.5 gm 11/16/17 13:15 11/16/17 13:55 Albumin Human 25% (12.5 Gm/50 Ml) IV 11/18/17 13:16 12.5 gm Q8H INDRA Administration Albuterol/Ipratropium 3 ml 11/15/17 14:00 11/16/17 13:50 Duoneb 3 Mg/0.5 Mg (3 Ml) Ud INH Not Given RQ6 INDRA Bumetanide 1 mg 11/09/17 10:00 11/16/17 09:09 Bumex PO 1 mg DAILY INDRA Administration Duloxetine HCl 30 mg 11/09/17 10:00 11/16/17 09:20 Cymbalta PO Not Given DAILY INDRA Ferrous Sulfate 325 mg 11/09/17 10:00 11/16/17 09:20 Feosol PO Not Given DAILY INDRA Furosemide 40 mg 11/16/17 13:15 11/16/17 14:20 Lasix PO 40 mg DAILY INDRA Administration Gabapentin 300 mg 11/09/17 10:00 11/16/17 16:59 Neurontin PO Not Given BID INDRA Aztreonam 1 gm/ Sodium 100 mls @ 100 mls/hr 11/14/17 08:00 11/16/17 09:28 Chloride IVPB 100 mls/hr Q12H INDRA Administration Vancomycin HCl 150 mls @ 150 mls/hr 11/14/17 10:00 11/16/17 09:13 Vancocin 750mg/D5w 150 Ml IVPB 150 mls/hr Q12H IN[facility]A Administration Potassium Chloride 20 meq in 100 mls @ 50 mls/hr 11/16/17 18:00 11/16/17 17: 01 Potassium Chloride 20 Meq/100 Ml IVPB 11/16/17 21:59 50 mls/hr Q2 INDRA Administration Magnesium Sulfate/Dextrose 1 gm in 100 mls @ 300 mls/hr 11/16/17 16:30 17:04 Magnesium Sulfate 1 Gm/100 Ml D5w IVPB 11/16/17 17:19 300 mls/hr Q30M INDRA Administration Insulin Aspart 0 unit 11/15/17 11:29 11/16/17 16:59 Novolog SC 6 unit ACHS INDRA Administration Protocol Insulin Glargine 20 unit 11/16/17 22:00 Lantus SC HS [facility] Lactulose 200 gm 11/15/17 17:25 11/16/17 16:59 Enulose MT 200 gm TID INDRA Administration Pantoprazole Sodium 40 mg 11/13/17 08:30 11/16/17 09:03 Protonix Inj IVP 40 mg Q12H INDRA Administration Propranolol HCl 10 mg 11/09/17 10:00 11/16/17 16:59 Inderal PO Not Given BID INDRA Rifaximin 550 mg 11/12/17 18:00 11/16/17 17:01 Xifaxan PO 550 mg BID INDRA Administration Spironolactone 50 mg 11/16/17 13:15 11/16/17 14:20 Aldactone PO 50 mg DAILY INDRA Administration Temazepam 15 mg 11/09/17 22:00 11/15/17 22:03 Restoril PO Not Given HS [facility] Vitamin A 1 ea 11/12/17 09:07 11/16/17 16:47 Vitamin A & D Oint Foilazk TOP 1 ea Q4 INDRA Administration - Patient Studies Lab Studies: Microbiology Studies 11/14/17 07:57 Urine Culture - Final Urine,Clean Catch Enterococcus Faecalis 11/14/17 06:37 Blood Culture - Preliminary Blood NO GROWTH AFTER 48 HOURS 11/14/17 06:50 Blood Culture - Preliminary Blood NO GROWTH AFTER 48 HOURS 11/14/17 17:48 MRSA Culture (Admit) - Final Naris MRSA NOT DETECTED Lab Studies 11/16/17 11/16/17 11/16/17 Range/Units 16:01 13:58 11:09 WBC (4.8-10.8) K/uL RBC (3.80-5.20) Mil/uL Hgb (11.0-16.0) g/dL Hct (34.0-47.0) % MCV (81.0-99.0) fL MCH (27.0-31.0) pg MCHC (33.0-37.0) g/dL RDW (11.5-14.5) % Plt Count (130-400) K/uL MPV (7.2-11.7) fL Neut % (Auto) (50.0-75.0) % Lymph % (Auto) (20.0-40.0) % Christian % (Auto) (0.0-10.0) % Eos % (Auto) (0.0-4.0) % Baso % (Auto) (0.0-2.0) % Neut # (1.8-7.0) K/uL Lymph # (1.0-4.3) K/uL Christian # (0.0-0.8) K/uL Eos # (0.0-0.7) K/uL Baso # (0.0-0.2) K/uL Differential Comment PT (9.7-12.2) SECONDS INR Sodium (132-148) mmol/L Potassium (3.6-5.2) mmol/L Chloride (98-107) mmol/L Carbon Dioxide (22-30) mmol/L Anion Gap (10-20) BUN (7-17) mg/dL Creatinine (0.7-1.2) mg/dL Est GFR ( Amer) Est GFR (Non-Af Amer) POC Glucose (mg/dL) 291 H 281 H (65-110) mg/dL Random Glucose (65-105) mg/dL Calcium (8.6-10.4) mg/dl Phosphorus (2.5-4.5) mg/dL Magnesium (1.6-2.3) mg/dL Total Bilirubin (0.2-1.3) mg/dL AST (14-36) U/L ALT (9-52) U/L Alkaline Phosphatase (38-126) U/L Lactate Dehydrogenase (313-618) U/L Total Protein (6.3-8.3) g/dL Albumin (3.5-5.0) g/dL Globulin (2.2-3.9) gm/dL Albumin/Globulin Ratio (1.0-2.1) Vancomycin Trough (5.0-10.0) ug/mL Blood Type O POSITIVE Antibody Screen Positive Antibody Identification Anti E 11/16/17 11/16/17 11/16/17 Range/Units 09:32 06:22 06:22 WBC 3.5 L (4.8-10.8) K/uL RBC 2.14 L (3.80-5.20) Mil/uL Hgb 6.9 L (11.0-16.0) g/dL Hct 19.6 L (34.0-47.0) % MCV 91.4 (81.0-99.0) fL MCH 32.3 H (27.0-31.0) pg MCHC 35.3 (33.0-37.0) g/dL RDW 16.9 H (11.5-14.5) % Plt Count 20 L* (130-400) K/uL MPV 7.8 (7.2-11.7) fL Neut % (Auto) 79.7 H (50.0-75.0) % Lymph % (Auto) 10.2 L (20.0-40.0) % Christian % (Auto) 5.6 (0.0-10.0) % Eos % (Auto) 3.0 (0.0-4.0) % Baso % (Auto) 1.5 (0.0-2.0) % Neut # 2.8 (1.8-7.0) K/uL Lymph # 0.4 L (1.0-4.3) K/uL Christian # 0.2 (0.0-0.8) K/uL Eos # 0.1 (0.0-0.7) K/uL Baso # 0.1 (0.0-0.2) K/uL Differential Comment PT (9.7-12.2) SECONDS INR Sodium 136 (132-148) mmol/L Potassium 3.2 L (3.6-5.2) mmol/L Chloride 99 (98-107) mmol/L Carbon Dioxide 31 H (22-30) mmol/L Anion Gap 9 L (10-20) BUN 45 H (7-17) mg/dL Creatinine 1.1 (0.7-1.2) mg/dL Est GFR ( Amer) 59 Est GFR (Non-Af Amer) 49 POC Glucose (mg/dL) 313 H (65-110) mg/dL Random Glucose 233 H (65-105) mg/dL Calcium 8.3 L (8.6-10.4) mg/dl Phosphorus 3.1 (2.5-4.5) mg/dL Magnesium 1.5 L (1.6-2.3) mg/dL Total Bilirubin 5.2 H (0.2-1.3) mg/dL AST 29 (14-36) U/L ALT 29 (9-52) U/L Alkaline Phosphatase 76 (38-126) U/L Lactate Dehydrogenase 581 (313-618) U/L Total Protein 4.5 L (6.3-8.3) g/dL Albumin 2.2 L (3.5-5.0) g/dL Globulin 2.3 (2.2-3.9) gm/dL Albumin/Globulin Ratio 1.0 (1.0-2.1) Vancomycin Trough (5.0-10.0) ug/mL Blood Type Antibody Screen Antibody Identification 11/16/17 11/16/17 11/15/17 Range/Units 06:22 05:41 21:15 WBC (4.8-10.8) K/uL RBC (3.80-5.20) Mil/uL Hgb (11.0-16.0) g/dL Hct (34.0-47.0) % MCV (81.0-99.0) fL MCH (27.0-31.0) pg MCHC (33.0-37.0) g/dL RDW (11.5-14.5) % Plt Count (130-400) K/uL MPV (7.2-11.7) fL Neut % (Auto) (50.0-75.0) % Lymph % (Auto) (20.0-40.0) % Christian % (Auto) (0.0-10.0) % Eos % (Auto) (0.0-4.0) % Baso % (Auto) (0.0-2.0) % Neut # (1.8-7.0) K/uL Lymph # (1.0-4.3) K/uL Christian # (0.0-0.8) K/uL Eos # (0.0-0.7) K/uL Baso # (0.0-0.2) K/uL Differential Comment PT (9.7-12.2) SECONDS INR Sodium (132-148) mmol/L Potassium (3.6-5.2) mmol/L Chloride (98-107) mmol/L Carbon Dioxide (22-30) mmol/L Anion Gap (10-20) BUN (7-17) mg/dL Creatinine (0.7-1.2) mg/dL Est GFR ( Amer) Est GFR (Non-Af Amer) POC Glucose (mg/dL) 232 H 314 H (65-110) mg/dL Random Glucose (65-105) mg/dL Calcium (8.6-10.4) mg/dl Phosphorus (2.5-4.5) mg/dL Magnesium (1.6-2.3) mg/dL Total Bilirubin (0.2-1.3) mg/dL AST (14-36) U/L ALT (9-52) U/L Alkaline Phosphatase (38-126) U/L Lactate Dehydrogenase (313-618) U/L Total Protein (6.3-8.3) g/dL Albumin (3.5-5.0) g/dL Globulin (2.2-3.9) gm/dL Albumin/Globulin Ratio (1.0-2.1) Vancomycin Trough 30.2 H (5.0-10.0) ug/mL Blood Type Antibody Screen Antibody Identification 11/15/17 11/15/17 Range/Units 20:27 16:13 WBC (4.8-10.8) K/uL RBC (3.80-5.20) Mil/uL Hgb (11.0-16.0) g/dL Hct (34.0-47.0) % MCV (81.0-99.0) fL MCH (27.0-31.0) pg MCHC (33.0-37.0) g/dL RDW (11.5-14.5) % Plt Count (130-400) K/uL MPV (7.2-11.7) fL Neut % (Auto) (50.0-75.0) % Lymph % (Auto) (20.0-40.0) % Christian % (Auto) (0.0-10.0) % Eos % (Auto) (0.0-4.0) % Baso % (Auto) (0.0-2.0) % Neut # (1.8-7.0) K/uL Lymph # (1.0-4.3) K/uL Christian # (0.0-0.8) K/uL Eos # (0.0-0.7) K/uL Baso # (0.0-0.2) K/uL Differential Comment PT 18.7 H D (9.7-12.2) SECONDS INR 1.6 D Sodium (132-148) mmol/L Potassium (3.6-5.2) mmol/L Chloride (98-107) mmol/L Carbon Dioxide (22-30) mmol/L Anion Gap (10-20) BUN (7-17) mg/dL Creatinine (0.7-1.2) mg/dL Est GFR ( Amer) Est GFR (Non-Af Amer) POC Glucose (mg/dL) 411 H* (65-110) mg/dL Random Glucose (65-105) mg/dL Calcium (8.6-10.4) mg/dl Phosphorus (2.5-4.5) mg/dL Magnesium (1.6-2.3) mg/dL Total Bilirubin (0.2-1.3) mg/dL AST (14-36) U/L ALT (9-52) U/L Alkaline Phosphatase (38-126) U/L Lactate Dehydrogenase (313-618) U/L Total Protein (6.3-8.3) g/dL Albumin (3.5-5.0) g/dL Globulin (2.2-3.9) gm/dL Albumin/Globulin Ratio (1.0-2.1) Vancomycin Trough (5.0-10.0) ug/mL Blood Type Antibody Screen Antibody Identification Laboratory Results - last 24 hr 11/15/17 11/15/17 11/15/17 16:13 20:27 21:15 WBC RBC Hgb Hct MCV MCH MCHC RDW Plt Count MPV Neut % (Auto) Lymph % (Auto) Christian % (Auto) Eos % (Auto) Baso % (Auto) Neut # Lymph # Christian # Eos # Baso # Differential Comment PT 18.7 H D INR 1.6 D Sodium Potassium Chloride Carbon Dioxide Anion Gap BUN Creatinine Est GFR ( Amer) Est GFR (Non-Af Amer) POC Glucose (mg/dL) 411 H* 314 H Random Glucose Calcium Phosphorus Magnesium Total Bilirubin AST ALT Alkaline Phosphatase Lactate Dehydrogenase Total Protein Albumin Globulin Albumin/Globulin Ratio Vancomycin Trough Blood Type Antibody Screen Antibody Identification 11/16/17 11/16/17 11/16/17 05:41 06:22 06:22 WBC 3.5 L RBC 2.14 L Hgb 6.9 L Hct 19.6 L MCV 91.4 MCH 32.3 H MCHC 35.3 RDW 16.9 H Plt Count 20 L* MPV 7.8 Neut % (Auto) 79.7 H Lymph % (Auto) 10.2 L Christian % (Auto) 5.6 Eos % (Auto) 3.0 Baso % (Auto) 1.5 Neut # 2.8 Lymph # 0.4 L Christian # 0.2 Eos # 0.1 Baso # 0.1 Differential Comment PT INR Sodium Potassium Chloride Carbon Dioxide Anion Gap BUN Creatinine Est GFR ( Amer) Est GFR (Non-Af Amer) POC Glucose (mg/dL) 232 H Random Glucose Calcium Phosphorus Magnesium Total Bilirubin AST ALT Alkaline Phosphatase Lactate Dehydrogenase Total Protein Albumin Globulin Albumin/Globulin Ratio Vancomycin Trough 30.2 H Blood Type Antibody Screen Antibody Identification 11/16/17 11/16/17 11/16/17 06:22 09:32 11:09 WBC RBC Hgb Hct MCV MCH MCHC RDW Plt Count MPV Neut % (Auto) Lymph % (Auto) Christian % (Auto) Eos % (Auto) Baso % (Auto) Neut # Lymph # Christian # Eos # Baso # Differential Comment PT INR Sodium 136 Potassium 3.2 L Chloride 99 Carbon Dioxide 31 H Anion Gap 9 L BUN 45 H Creatinine 1.1 Est GFR ( Amer) 59 Est GFR (Non-Af Amer) 49 POC Glucose (mg/dL) 313 H 281 H Random Glucose 233 H Calcium 8.3 L Phosphorus 3.1 Magnesium 1.5 L Total Bilirubin 5.2 H AST 29 ALT 29 Alkaline Phosphatase 76 Lactate Dehydrogenase 581 Total Protein 4.5 L Albumin 2.2 L Globulin 2.3 Albumin/Globulin Ratio 1.0 Vancomycin Trough Blood Type Antibody Screen Antibody Identification 11/16/17 11/16/17 13:58 16:01 WBC RBC Hgb Hct MCV MCH MCHC RDW Plt Count MPV Neut % (Auto) Lymph % (Auto) Christian % (Auto) Eos % (Auto) Baso % (Auto) Neut # Lymph # Christian # Eos # Baso # Differential Comment PT INR Sodium Potassium Chloride Carbon Dioxide Anion Gap BUN Creatinine Est GFR ( Amer) Est GFR (Non-Af Amer) POC Glucose (mg/dL) 291 H Random Glucose Calcium Phosphorus Magnesium Total Bilirubin AST ALT Alkaline Phosphatase Lactate Dehydrogenase Total Protein Albumin Globulin Albumin/Globulin Ratio Vancomycin Trough Blood Type O POSITIVE Antibody Screen Positive Antibody Identification Anti E Fingerstick Blood Sugar Results: 291 Review of Systems - Review of Systems All systems: reviewed and no additional remarkable complaints except Critical Care Progress Note - Nutrition Nutrition: Nutrition Category Date Time Status Dysphagia/Modified Consistency Diet [DIET] Diets 11/16/17 Lunch Active Assessment/Plan (1) Sepsis Assessment and plan: 72F with PMH of Hepatitis C with cirrhosis and resulting hepatic encephalopathy , hypertension, splenomegaly, pancytopenia, history of multiple GI bleeds, diabetes, and recent hip fracture s/p ORIF right hip who presented to the ICU with sepsis and recent urine culture positive for coagulase negative staphylococcus (11/11/17). altered mental status from chronic hepatic encephalopathy and sepsis, improving. Hepatic encephalopathy continue lactulose and rifaximin, ammonia downtrending. Acute on chronic anemia, transfusing 2 units PRBC. history of bleeding varices , if h/h does not stabilize will need EGD and banding. Chronic thrombocytopenia that is refractory to transfusion, either sequestration or antibody mediated, baseline count 20K. Discussed with Dr. Maciel - Hem/Onc DM type 2, increased Lantus 20 units qhs, SISS for coverage. edematous with liver cirrhosis, this will slow wound healing s/p ORIF, started spironolactone, lasix and albumin. Sepsis from unknown source, continue Aztreonam and Vancomycin. ID - Dr. Ruggiero PT/OT consulted. protonix a/c held with possible bleeding and thrombocytopenia, continue SCD's Critical Care Time spent 35 minutes Multi-disciplinary rounds were performed with house staff, nursing, speech therapy, respiratory therapy, pharmacy and nutrition with integrated input from the primary team/attending and other consulting services. The documented time is cumulative and includes review of patient data/exams/labs/chart review and examination of the patient on rounds and throughout the day; time is exclusive of any procedures or teaching time. Current Visit: Yes Status: Acute
--- NOTE | 2017-11-16 17:44 | CP.PCM.PN ---
Subjective - Date & Time of Evaluation Date of Evaluation: 11/16/17 Time of Evaluation: 13:00 - Subjective Subjective: clinically same Objective - Vital Signs/Intake and Output Vital Signs (last 24 hours): Temp Pulse Resp BP Pulse Ox 98.5 F 84 17 138/56 L 94 L 11/16/17 16:55 11/16/17 16:55 11/16/17 16:55 11/16/17 16:55 11/16/17 16:00 Intake and Output: 11/16/17 11/16/17 06:59 18:59 Intake Total 590 710 Output Total 550 800 Balance 40 -90 - Medications Medications: Current Medications Albumin Human (Albumin Human 25% (12.5 Gm/50 Ml)) 12.5 gm IV Q8H [facility] Stop: 11/18/17 13:16 Last Admin: 11/16/17 13:55 Dose: 12.5 gm Albuterol/Ipratropium (Duoneb 3 Mg/0.5 Mg (3 Ml) Ud) 3 ml INH RQ6 [facility] Last Admin: 11/16/17 13:50 Dose: Not Given Bumetanide (Bumex) 1 mg PO DAILY [facility] Last Admin: 11/16/17 09:09 Dose: 1 mg Duloxetine HCl (Cymbalta) 30 mg PO DAILY [facility] Last Admin: 11/16/17 09:20 Dose: Not Given Ferrous Sulfate (Feosol) 325 mg PO DAILY [facility] Last Admin: 11/16/17 09:20 Dose: Not Given Furosemide (Lasix) 40 mg PO DAILY [facility] Last Admin: 11/16/17 14:20 Dose: 40 mg Gabapentin (Neurontin) 300 mg PO BID [facility] Last Admin: 11/16/17 16:59 Dose: Not Given Aztreonam 1 gm/ Sodium (Chloride) 100 mls @ 100 mls/hr IVPB Q12H [facility] Last Admin: 11/16/17 09:28 Dose: 100 mls/hr Vancomycin HCl (Vancocin 750mg/D5w 150 Ml) 150 mls @ 150 mls/hr IVPB Q12H [facility] Last Admin: 11/16/17 09:13 Dose: 150 mls/hr Potassium Chloride (Potassium Chloride 20 Meq/100 Ml) 20 meq in 100 mls @ 50 mls/hr IVPB Q2 [facility] Stop: 11/16/17 21:59 Last Admin: 11/16/17 17:01 Dose: 50 mls/hr Insulin Aspart (Novolog) 0 unit SC ACHS [facility] PRN Reason: Protocol Last Admin: 11/16/17 16:59 Dose: 6 unit Insulin Glargine (Lantus) 20 unit SC HS [facility] Lactulose (Enulose) 200 gm CO TID [facility] Last Admin: 11/16/17 16:59 Dose: 200 gm Pantoprazole Sodium (Protonix Inj) 40 mg IVP Q12H [facility] Last Admin: 11/16/17 09:03 Dose: 40 mg Propranolol HCl (Inderal) 10 mg PO BID [facility] Last Admin: 11/16/17 16:59 Dose: Not Given Rifaximin (Xifaxan) 550 mg PO BID [facility] Last Admin: 11/16/17 17:01 Dose: 550 mg Spironolactone (Aldactone) 50 mg PO DAILY [facility] Last Admin: 11/16/17 14:20 Dose: 50 mg Temazepam (Restoril) 15 mg PO HS [facility] Last Admin: 11/15/17 22:03 Dose: Not Given Vitamin A (Vitamin A & D Oint [facility]) 1 ea TOP Q4 [facility] Last Admin: 11/16/17 16:47 Dose: 1 ea - Labs Labs: 11/16/17 06:22 11/16/17 06:22 PT 18.7 SECONDS (9.7-12.2) H D 11/15/17 20:27 INR 1.6 D 11/15/17 20:27 APTT 37 SECONDS (21-34) H 11/15/17 05:28
[2017-11-16] MEDS: Magnesium Oxide 400 mg Tab UD PO SCH (23:03)
[2017-11-17] MEDS: Vitamins A & D Oint UD Foilpak TOP SCH ×7 (00:05→23:11)
[2017-11-17] MEDS: Albuterol-Ipratrop 3 mg / 0.5 (3 ml) UD INH SCH ×4 (01:23→19:13)
[2017-11-17] MEDS: Albumin Human 25% (12.5 gm/50 ml) IV SCH ×3 (05:04→21:40)
[2017-11-17 06:44] LABS: BASO % 0.3 % (0.0-2.0); EOS # 0.1 K/uL (0.0-0.7); EOS % 2.4 % (0.0-4.0); HEMOGLOBIN 9.1 g/dL (11.0-16.0); LYMPH # 0.4 K/uL (1.0-4.3); LYMPH % 9.4 % (20.0-40.0); MEAN CELL VOLUME 92.6 fL (81.0-99.0); MEAN CORPUSCULAR HEMOGLOBIN 32.1 pg (27.0-31.0); MEAN CORPUSCULAR HGB CONC 34.7 g/dL (33.0-37.0); MEAN PLATELET VOLUME 8.7 fL (7.2-11.7); MONO # 0.3 K/uL (0.0-0.8); MONO % 5.9 % (0.0-10.0); NEUT # 3.7 K/uL (1.8-7.0); NRBC % 0.4 % (0.0-2.0); RBC 2.84 Mil/uL (3.80-5.20); WHITE BLOOD COUNT 4.6 K/uL (4.8-10.8)
[2017-11-17 06:51] LABS: PLATELET COUNT 22 K/uL (130-400)
[2017-11-17 07:01] LABS: ALB/GLOB RATIO 0.9 (1.0-2.1); ALBUMIN 2.3 g/dL (3.5-5.0); ALT/SGPT 29 U/L (9-52); AST/SGOT 35 U/L (14-36); BLOOD UREA NITROGEN 40 mg/dL (7-17); CALCIUM 8.4 mg/dl (8.6-10.4); GFR AFRICAN-AMERICAN > 60; GFR NON-AFRICAN AMERICAN > 60; MAGNESIUM 1.8 mg/dL (1.6-2.3)
[2017-11-17 07:05] LABS: PROTHROMBIN TIME 22.5 SECONDS (9.7-12.2)
[2017-11-17] MEDS: (Novolog) Insulin Aspart, Recombinant 100 u/ml 10 ml vial SC SCH ×4 (08:17→22:29)
[2017-11-17 08:40] LABS: ANISOCYTOSIS SLIGHT; BANDS 3 % (0-2); EOSINOPHIL 3 % (0-4); LYMPHOCYTE 14 % (20-40); MONOCYTE 4 % (0-10); NEUTROPHIL 76 % (50-75); PLATELET ESTIMATE MARKEDLY DECREASED (NORMAL); TOTAL CELLS COUNTED 100
[2017-11-17 08:41] LABS: OVALOCYTES SLIGHT; POIKILOCYTOSIS SLIGHT; POLYCHROMIC SLIGHT; TEARDROP CELLS SLIGHT
[2017-11-17] MEDS: Aztreonam 1 GM in Sodium Chloride 0.9% 100 ML IVPB SCH ×2 (09:00→20:18)
--- NOTE | 2017-11-17 09:45 | CP.PCM.PN ---
Subjective - Date & Time of Evaluation Date of Evaluation: 11/17/17 Time of Evaluation: 09:44 - Subjective Subjective: CC: cirrhosis More alert today. in ICU. transfused PRBCs for anemia. Leg is painful Objective - Vital Signs/Intake and Output Vital Signs (last 24 hours): Temp Pulse Resp BP Pulse Ox 98.4 F 96 H 17 142/58 L 96 11/17/17 04:00 11/17/17 06:28 11/17/17 06:28 11/17/17 06:28 11/17/17 06:28 Intake and Output: 11/17/17 11/17/17 06:59 18:59 Intake Total 1565 Output Total 1300 Balance 265 - Medications Medications: Current Medications Albumin Human (Albumin Human 25% (12.5 Gm/50 Ml)) 12.5 gm IV Q8H [facility] Stop: 11/18/17 13:16 Last Admin: 11/17/17 05:04 Dose: 12.5 gm Albuterol/Ipratropium (Duoneb 3 Mg/0.5 Mg (3 Ml) Ud) 3 ml INH RQ6 [facility] Last Admin: 11/17/17 07:39 Dose: 3 ml Bumetanide (Bumex) 1 mg PO DAILY [facility] Last Admin: 11/16/17 09:09 Dose: 1 mg Duloxetine HCl (Cymbalta) 30 mg PO DAILY [facility] Last Admin: 11/16/17 09:20 Dose: Not Given Ferrous Sulfate (Feosol) 325 mg PO DAILY [facility] Last Admin: 11/16/17 09:20 Dose: Not Given Furosemide (Lasix) 40 mg PO DAILY [facility] Last Admin: 11/16/17 14:20 Dose: 40 mg Gabapentin (Neurontin) 300 mg PO BID [facility] Last Admin: 11/16/17 16:59 Dose: Not Given Aztreonam 1 gm/ Sodium (Chloride) 100 mls @ 100 mls/hr IVPB Q12H [facility] Last Admin: 11/16/17 20:08 Dose: 100 mls/hr Vancomycin HCl (Vancocin 750mg/D5w 150 Ml) 150 mls @ 150 mls/hr IVPB Q12H [facility] Last Admin: 11/16/17 21:18 Dose: 150 mls/hr Insulin Aspart (Novolog) 0 unit SC ACHS [facility] PRN Reason: Protocol Last Admin: 11/17/17 08:17 Dose: 6 unit Insulin Glargine (Lantus) 20 unit SC HS [facility] Last Admin: 11/16/17 21:20 Dose: 20 units Lactulose (Enulose) 200 gm SD TID [facility] Last Admin: 11/16/17 16:59 Dose: 200 gm Magnesium Oxide (Mag-Ox) 400 mg PO BID [facility] Last Admin: 11/16/17 23:03 Dose: 400 mg Pantoprazole Sodium (Protonix Inj) 40 mg IVP Q12H [facility] Last Admin: 11/16/17 20:47 Dose: 40 mg Propranolol HCl (Inderal) 10 mg PO BID [facility] Last Admin: 11/16/17 16:59 Dose: Not Given Rifaximin (Xifaxan) 550 mg PO BID [facility] Last Admin: 11/16/17 17:01 Dose: 550 mg Spironolactone (Aldactone) 50 mg PO DAILY [facility] Last Admin: 11/16/17 14:20 Dose: 50 mg Vitamin A (Vitamin A & D Oint Ud Foilpak) 1 ea TOP Q4 [facility] Last Admin: 11/17/17 04:00 Dose: 1 ea - Labs Labs: 11/17/17 06:38 11/17/17 06:38 PT 22.5 SECONDS (9.7-12.2) H 11/17/17 06:38 INR 2.0 11/17/17 06:38 APTT 40 SECONDS (21-34) H 11/17/17 06:38 - Constitutional Appears: Confused, Chronically Ill - Head Exam Head Exam: NORMOCEPHALIC - Respiratory Exam Respiratory Exam: Clear to Ausculation Bilateral - Cardiovascular Exam Cardiovascular Exam: REGULAR RHYTHM - GI/Abdominal Exam GI & Abdominal Exam: Soft. absent: Tenderness - Neurological Exam Neurological Exam: Alert, Altered, Awake Assessment and Plan (1) Closed displaced intertrochanteric fracture of right femur Status: Acute (2) Anemia Status: Acute (3) Cirrhosis Status: Acute (4) Coagulopathy Status: Acute (5) Hepatic encephalopathy Status: Acute
[2017-11-17] MEDS: Magnesium Oxide 400 mg Tab UD PO SCH ×2 (09:47→17:34)
[2017-11-17] MEDS: Vancomycin 750mg/D5W 150 ml 150 ML IVPB SCH (10:57)
--- NOTE | 2017-11-17 15:52 | CP.PCM.PN ---
Subjective - Date & Time of Evaluation Date of Evaluation: 11/17/17 Time of Evaluation: 07:00 - Subjective Subjective: awake alert afebrile nad c/o pain right hip Objective - Vital Signs/Intake and Output Vital Signs (last 24 hours): Temp Pulse Resp BP Pulse Ox 98.4 F 87 15 136/52 L 98 11/17/17 04:00 11/17/17 12:00 11/17/17 12:00 11/17/17 11:28 11/17/17 12:00 Intake and Output: 11/17/17 11/17/17 06:59 18:59 Intake Total 1565 560 Output Total 1300 305 Balance 265 255 - Medications Medications: Current Medications Albumin Human (Albumin Human 25% (12.5 Gm/50 Ml)) 12.5 gm IV Q8H [facility] Stop: 11/18/17 13:16 Last Admin: 11/17/17 13:15 Dose: 12.5 gm Albuterol/Ipratropium (Duoneb 3 Mg/0.5 Mg (3 Ml) Ud) 3 ml INH RQ6 [facility] Last Admin: 11/17/17 13:46 Dose: 3 ml Bumetanide (Bumex) 1 mg PO DAILY [facility] Last Admin: 11/17/17 09:48 Dose: 1 mg Duloxetine HCl (Cymbalta) 30 mg PO DAILY [facility] Last Admin: 11/17/17 09:48 Dose: 30 mg Ferrous Sulfate (Feosol) 325 mg PO DAILY [facility] Last Admin: 11/17/17 09:47 Dose: 325 mg Furosemide (Lasix) 40 mg PO DAILY [facility] Last Admin: 11/17/17 09:47 Dose: 40 mg Gabapentin (Neurontin) 300 mg PO BID [facility] Last Admin: 11/17/17 09:47 Dose: 300 mg Aztreonam 1 gm/ Sodium (Chloride) 100 mls @ 100 mls/hr IVPB Q12H [facility] Last Admin: 11/17/17 09:00 Dose: 100 mls/hr Vancomycin HCl (Vancocin 750mg/D5w 150 Ml) 150 mls @ 150 mls/hr IVPB Q12H [facility] Last Admin: 11/17/17 10:57 Dose: Not Given Insulin Aspart (Novolog) 0 unit SC ACHS [facility] PRN Reason: Protocol Last Admin: 11/17/17 11:28 Dose: 6 unit Insulin Glargine (Lantus) 20 unit SC HS [facility] Last Admin: 11/16/17 21:20 Dose: 20 units Lactulose (Enulose) 200 gm GA Q12 [facility] Last Admin: 11/17/17 13:19 Dose: Not Given Magnesium Oxide (Mag-Ox) 400 mg PO BID [facility] Last Admin: 11/17/17 09:47 Dose: 400 mg Pantoprazole Sodium (Protonix Inj) 40 mg IVP Q12H [facility] Last Admin: 11/17/17 09:30 Dose: 40 mg Propranolol HCl (Inderal) 10 mg PO BID [facility] Last Admin: 11/17/17 09:48 Dose: 10 mg Rifaximin (Xifaxan) 550 mg PO BID [facility] Last Admin: 11/17/17 09:48 Dose: 550 mg Spironolactone (Aldactone) 50 mg PO DAILY [facility] Last Admin: 11/17/17 09:48 Dose: 50 mg Vitamin A (Vitamin A & D Oint Ud Foilpak) 1 ea TOP Q4 [facility] Last Admin: 11/17/17 13:19 Dose: 1 ea - Labs Labs: 11/17/17 06:38 11/17/17 06:38 PT 22.5 SECONDS (9.7-12.2) H 11/17/17 06:38 INR 2.0 11/17/17 06:38 APTT 40 SECONDS (21-34) H 11/17/17 06:38 - Constitutional Appears: Non-toxic, Chronically Ill - Head Exam Head Exam: NORMOCEPHALIC - Eye Exam Eye Exam: PERRL - ENT Exam ENT Exam: Mucous Membranes Dry - Neck Exam Neck Exam: absent: Lymphadenopathy - Respiratory Exam Respiratory Exam: Decreased Breath Sounds - Cardiovascular Exam Cardiovascular Exam: REGULAR RHYTHM - GI/Abdominal Exam GI & Abdominal Exam: Distended, Soft - Rectal Exam Rectal Exam: Deferred - Exam Exam: NORMAL INSPECTION - Extremities Exam Extremities Exam: absent: Pedal Edema - Back Exam Back Exam: absent: CVA tenderness (L), CVA tenderness (R) - Neurological Exam Neurological Exam: Alert, Awake, Oriented x3 - Psychiatric Exam Psychiatric exam: Depressed - Skin Skin Exam: Dry Assessment and Plan (1) Closed displaced intertrochanteric fracture of right femur Status: Acute (2) Anemia Status: Acute (3) Cirrhosis Status: Acute (4) Coagulopathy Status: Acute (5) GI bleed Status: Acute (6) HCV (hepatitis C virus) Status: Acute (7) HTN (hypertension) Status: Acute (8) Hepatic encephalopathy Status: Acute
--- NOTE | 2017-11-17 16:34 | CP.CCUPN ---
CCU Subjective - Physician Review Events Since Last Encounter (Free Text): 11/17/17 16:31 patient seen and examined in the intensive care unit. Patient is more awake and responsive Afebrile Constipation not relieved by enema Being treated for enterococcus Status post transfusion of packed RBC CCU Objective - Vital Signs / Intake & Output Intake and Output (Last 8hrs): Intake & Output 11/17/17 11/17/17 11/17/17 06:59 14:59 22:59 Intake Total 490 560 Output Total 425 305 Balance 65 255 Intake: Intake, IV Amount 250 100 Right Forearm 250 100 Oral 240 460 Output: Urine 425 305 Urethral (George) 425 305 Emesis 0 Other: # Bowel Movements 0 - Physical Exam Head: Positive for: Atraumatic, Normocephalic Pupils: Positive for: PERRL Mouth: Positive for: Moist Mucous Membranes Respiratory/Chest: Positive for: Clear to Auscultation, Good Air Exchange. Negative for: Respiratory Distress, Accessory Muscle Use Cardiovascular: Positive for: Regular Rate and Rhythm, Normal S1, S2 Abdomen: Positive for: Tenderness (LLQ ), Normal Bowel Sounds. Negative for: Distention, Peritoneal Signs Upper Extremity: Positive for: Normal Inspection Lower Extremity: Positive for: Normal Inspection, Other (s/p ORIF right hip ) Neurological: Negative for: GCS=15 Skin: Positive for: Warm, Dry, Normal Color. Negative for: Rashes Psychiatric: Negative for: Oriented x 3 - Medications Active Medications: Active Medications Generic Name Dose Route Start Last Admin Trade Name Freq PRN Reason Stop Dose Admin Albumin Human 12.5 gm 11/16/17 13:15 11/17/17 13:15 Albumin Human 25% (12.5 Gm/50 Ml) IV 11/18/17 13:16 12.5 gm Q8H [facility] Administration Albuterol/Ipratropium 3 ml 11/15/17 14:00 11/17/17 13:46 Duoneb 3 Mg/0.5 Mg (3 Ml) Ud INH 3 ml RQ6 [facility] Administration Bumetanide 1 mg 11/09/17 10:00 11/17/17 09:48 Bumex PO 1 mg DAILY [facility] Administration Duloxetine HCl 30 mg 11/09/17 10:00 11/17/17 09:48 Cymbalta PO 30 mg DAILY [facility] Administration Ferrous Sulfate 325 mg 11/09/17 10:00 11/17/17 09:47 Feosol PO 325 mg DAILY [facility] Administration Furosemide 40 mg 11/16/17 13:15 11/17/17 09:47 Lasix PO 40 mg DAILY [facility] Administration Gabapentin 300 mg 11/09/17 10:00 11/17/17 09:47 Neurontin PO 300 mg BID [facility] Administration Aztreonam 1 gm/ Sodium 100 mls @ 100 mls/hr 11/14/17 08:00 11/17/17 09:00 Chloride IVPB 100 mls/hr Q12H [facility] Administration Vancomycin HCl 150 mls @ 150 mls/hr 11/14/17 10:00 11/17/17 10:57 Vancocin 750mg/D5w 150 Ml IVPB Not Given Q12H [facility] Insulin Aspart 0 unit 11/15/17 11:29 11/17/17 11:28 Novolog SC 6 unit ACHS [facility] Administration Protocol Insulin Glargine 20 unit 11/16/17 22:00 11/16/17 21:20 Lantus SC 20 units HS [facility] Administration Lactulose 200 gm 11/17/17 12:00 11/17/17 13:19 Enulose IN Not Given Q12 [facility] Magnesium Oxide 400 mg 11/16/17 22:30 11/17/17 09:47 Mag-Ox PO 400 mg BID [facility] Administration Pantoprazole Sodium 40 mg 11/13/17 08:30 11/17/17 09:30 Protonix Inj IVP 40 mg Q12H [facility] Administration Propranolol HCl 10 mg 11/09/17 10:00 11/17/17 09:48 Inderal PO 10 mg BID [facility] Administration Rifaximin 550 mg 11/12/17 18:00 11/17/17 09:48 Xifaxan PO 550 mg BID [facility] Administration Spironolactone 50 mg 11/16/17 13:15 11/17/17 09:48 Aldactone PO 50 mg DAILY [facility] Administration Vitamin A 1 ea 11/12/17 09:07 11/17/17 13:19 Vitamin A & D Oint Foilnck [facility] 1 ea Q4 [facility] Administration - Patient Studies Lab Studies: Microbiology Studies 11/14/17 06:37 Blood Culture - Preliminary Blood NO GROWTH AFTER 3 DAYS 11/14/17 06:50 Blood Culture - Preliminary Blood NO GROWTH AFTER 3 DAYS Lab Studies 11/17/17 11/17/1718 Range/Units 11:21 07:32 06:38 WBC (4.8-10.8) K/uL RBC (3.80-5.20) Mil/uL Hgb (11.0-16.0) g/dL Hct (34.0-47.0) % MCV (81.0-99.0) fL MCH (27.0-31.0) pg MCHC (33.0-37.0) g/dL RDW (11.5-14.5) % Plt Count (130-400) K/uL MPV (7.2-11.7) fL Neut % (Auto) (50.0-75.0) % Lymph % (Auto) (20.0-40.0) % Mcminn % (Auto) (0.0-10.0) % Eos % (Auto) (0.0-4.0) % Baso % (Auto) (0.0-2.0) % Neut # (1.8-7.0) K/uL Lymph # (1.0-4.3) K/uL Mcminn # (0.0-0.8) K/uL Eos # (0.0-0.7) K/uL Baso # (0.0-0.2) K/uL Neutrophils % (Manual) (50-75) % Band Neutrophils % (0-2) % Lymphocytes % (Manual) (20-40) % Monocytes % (Manual) (0-10) % Eosinophils % (Manual) (0-4) % Platelet Estimate (NORMAL) Polychromasia Poikilocytosis (manual Anisocytosis (manual) Tear Drop Cells Ovalocytes PT (9.7-12.2) SECONDS INR APTT (21-34) SECONDS Sodium 131 L (132-148) mmol/L Potassium 4.1 (3.6-5.2) mmol/L Chloride 97 L (98-107) mmol/L Carbon Dioxide 30 (22-30) mmol/L Anion Gap 8 L (10-20) BUN 40 H (7-17) mg/dL Creatinine 0.9 (0.7-1.2) mg/dL Est GFR ( Amer) > 60 Est GFR (Non-Af Amer) > 60 POC Glucose (mg/dL) 280 H 287 H (65-110) mg/dL Random Glucose 249 H (65-105) mg/dL Calcium 8.4 L (8.6-10.4) mg/dl Phosphorus 2.4 L (2.5-4.5) mg/dL Magnesium 1.8 (1.6-2.3) mg/dL Total Bilirubin 6.6 H (0.2-1.3) mg/dL AST 35 (14-36) U/L ALT 29 (9-52) U/L Alkaline Phosphatase 84 (38-126) U/L Total Protein 4.7 L (6.3-8.3) g/dL Albumin 2.3 L (3.5-5.0) g/dL Globulin 2.4 (2.2-3.9) gm/dL Albumin/Globulin Ratio 0.9 L (1.0-2.1) Blood Type Antibody Screen Antibody Identification 11/17/17 11/17/17 11/16/17 Range/Units 06:38 06:38 21:19 WBC 4.6 L (4.8-10.8) K/uL RBC 2.84 L (3.80-5.20) Mil/uL Hgb 9.1 L D (11.0-16.0) g/dL Hct 26.3 L (34.0-47.0) % MCV 92.6 (81.0-99.0) fL MCH 32.1 H (27.0-31.0) pg MCHC 34.7 (33.0-37.0) g/dL RDW 17.0 H (11.5-14.5) % Plt Count 22 L* (130-400) K/uL MPV 8.7 (7.2-11.7) fL Neut % (Auto) 82.0 H (50.0-75.0) % Lymph % (Auto) 9.4 L (20.0-40.0) % Mcminn % (Auto) 5.9 (0.0-10.0) % Eos % (Auto) 2.4 (0.0-4.0) % Baso % (Auto) 0.3 (0.0-2.0) % Neut # 3.7 (1.8-7.0) K/uL Lymph # 0.4 L (1.0-4.3) K/uL Mcminn # 0.3 (0.0-0.8) K/uL Eos # 0.1 (0.0-0.7) K/uL Baso # 0.0 (0.0-0.2) K/uL Neutrophils % (Manual) 76 H (50-75) % Band Neutrophils % 3 H (0-2) % Lymphocytes % (Manual) 14 L (20-40) % Monocytes % (Manual) 4 (0-10) % Eosinophils % (Manual) 3 (0-4) % Platelet Estimate Markedly decreased L (NORMAL) Polychromasia Slight Poikilocytosis (manual Slight Anisocytosis (manual) Slight Tear Drop Cells Slight Ovalocytes Slight PT 22.5 H (9.7-12.2) SECONDS INR 2.0 APTT 40 H (21-34) SECONDS Sodium (132-148) mmol/L Potassium (3.6-5.2) mmol/L Chloride (98-107) mmol/L Carbon Dioxide (22-30) mmol/L Anion Gap (10-20) BUN (7-17) mg/dL Creatinine (0.7-1.2) mg/dL Est GFR ( Amer) Est GFR (Non-Af Amer) POC Glucose (mg/dL) 248 H (65-110) mg/dL Random Glucose (65-105) mg/dL Calcium (8.6-10.4) mg/dl Phosphorus (2.5-4.5) mg/dL Magnesium (1.6-2.3) mg/dL Total Bilirubin (0.2-1.3) mg/dL AST (14-36) U/L ALT (9-52) U/L Alkaline Phosphatase (38-126) U/L Total Protein (6.3-8.3) g/dL Albumin (3.5-5.0) g/dL Globulin (2.2-3.9) gm/dL Albumin/Globulin Ratio (1.0-2.1) Blood Type Antibody Screen Antibody Identification 11/16/17 Range/Units 13:58 WBC (4.8-10.8) K/uL RBC (3.80-5.20) Mil/uL Hgb (11.0-16.0) g/dL Hct (34.0-47.0) % MCV (81.0-99.0) fL MCH (27.0-31.0) pg MCHC (33.0-37.0) g/dL RDW (11.5-14.5) % Plt Count (130-400) K/uL MPV (7.2-11.7) fL Neut % (Auto) (50.0-75.0) % Lymph % (Auto) (20.0-40.0) % Mcminn % (Auto) (0.0-10.0) % Eos % (Auto) (0.0-4.0) % Baso % (Auto) (0.0-2.0) % Neut # (1.8-7.0) K/uL Lymph # (1.0-4.3) K/uL Mcminn # (0.0-0.8) K/uL Eos # (0.0-0.7) K/uL Baso # (0.0-0.2) K/uL Neutrophils % (Manual) (50-75) % Band Neutrophils % (0-2) % Lymphocytes % (Manual) (20-40) % Monocytes % (Manual) (0-10) % Eosinophils % (Manual) (0-4) % Platelet Estimate (NORMAL) Polychromasia Poikilocytosis (manual Anisocytosis (manual) Tear Drop Cells Ovalocytes PT (9.7-12.2) SECONDS INR APTT (21-34) SECONDS Sodium (132-148) mmol/L Potassium (3.6-5.2) mmol/L Chloride (98-107) mmol/L Carbon Dioxide (22-30) mmol/L Anion Gap (10-20) BUN (7-17) mg/dL Creatinine (0.7-1.2) mg/dL Est GFR ( Amer) Est GFR (Non-Af Amer) POC Glucose (mg/dL) (65-110) mg/dL Random Glucose (65-105) mg/dL Calcium (8.6-10.4) mg/dl Phosphorus (2.5-4.5) mg/dL Magnesium (1.6-2.3) mg/dL Total Bilirubin (0.2-1.3) mg/dL AST (14-36) U/L ALT (9-52) U/L Alkaline Phosphatase (38-126) U/L Total Protein (6.3-8.3) g/dL Albumin (3.5-5.0) g/dL Globulin (2.2-3.9) gm/dL Albumin/Globulin Ratio (1.0-2.1) Blood Type O POSITIVE Antibody Screen Positive Antibody Identification Anti E Laboratory Results - last 24 hr 11/16/17 11/16/17 11/17/17 13:58 21:19 06:38 WBC 4.6 L RBC 2.84 L Hgb 9.1 L D Hct 26.3 L MCV 92.6 MCH 32.1 H MCHC 34.7 RDW 17.0 H Plt Count 22 L* MPV 8.7 Neut % (Auto) 82.0 H Lymph % (Auto) 9.4 L Mcminn % (Auto) 5.9 Eos % (Auto) 2.4 Baso % (Auto) 0.3 Neut # 3.7 Lymph # 0.4 L Mcminn # 0.3 Eos # 0.1 Baso # 0.0 Neutrophils % (Manual) 76 H Band Neutrophils % 3 H Lymphocytes % (Manual) 14 L Monocytes % (Manual) 4 Eosinophils % (Manual) 3 Platelet Estimate Markedly decreased L Polychromasia Slight Poikilocytosis (manual Slight Anisocytosis (manual) Slight Tear Drop Cells Slight Ovalocytes Slight PT INR APTT Sodium Potassium Chloride Carbon Dioxide Anion Gap BUN Creatinine Est GFR ( Amer) Est GFR (Non-Af Amer) POC Glucose (mg/dL) 248 H Random Glucose Calcium Phosphorus Magnesium Total Bilirubin AST ALT Alkaline Phosphatase Total Protein Albumin Globulin Albumin/Globulin Ratio Blood Type O POSITIVE Antibody Screen Positive Antibody Identification Anti E 11/17/17 11/17/17 11/17/17 06:38 06:38 07:32 WBC RBC Hgb Hct MCV MCH MCHC RDW Plt Count MPV Neut % (Auto) Lymph % (Auto) Mcminn % (Auto) Eos % (Auto) Baso % (Auto) Neut # Lymph # Mcminn # Eos # Baso # Neutrophils % (Manual) Band Neutrophils % Lymphocytes % (Manual) Monocytes % (Manual) Eosinophils % (Manual) Platelet Estimate Polychromasia Poikilocytosis (manual Anisocytosis (manual) Tear Drop Cells Ovalocytes PT 22.5 H INR 2.0 APTT 40 H Sodium 131 L Potassium 4.1 Chloride 97 L Carbon Dioxide 30 Anion Gap 8 L BUN 40 H Creatinine 0.9 Est GFR ( Amer) > 60 Est GFR (Non-Af Amer) > 60 POC Glucose (mg/dL) 287 H Random Glucose 249 H Calcium 8.4 L Phosphorus 2.4 L Magnesium 1.8 Total Bilirubin 6.6 H AST 35 ALT 29 Alkaline Phosphatase 84 Total Protein 4.7 L Albumin 2.3 L Globulin 2.4 Albumin/Globulin Ratio 0.9 L Blood Type Antibody Screen Antibody Identification 11/17/17 11:21 WBC RBC Hgb Hct MCV MCH MCHC RDW Plt Count MPV Neut % (Auto) Lymph % (Auto) Mcminn % (Auto) Eos % (Auto) Baso % (Auto) Neut # Lymph # Mcminn # Eos # Baso # Neutrophils % (Manual) Band Neutrophils % Lymphocytes % (Manual) Monocytes % (Manual) Eosinophils % (Manual) Platelet Estimate Polychromasia Poikilocytosis (manual Anisocytosis (manual) Tear Drop Cells Ovalocytes PT INR APTT Sodium Potassium Chloride Carbon Dioxide Anion Gap BUN Creatinine Est GFR ( Amer) Est GFR (Non-Af Amer) POC Glucose (mg/dL) 280 H Random Glucose Calcium Phosphorus Magnesium Total Bilirubin AST ALT Alkaline Phosphatase Total Protein Albumin Globulin Albumin/Globulin Ratio Blood Type Antibody Screen Antibody Identification Fingerstick Blood Sugar Results: 280 Critical Care Progress Note - Nutrition Nutrition: Nutrition Category Date Time Status Dysphagia/Modified Consistency Diet [DIET] Diets 11/16/17 Lunch Active Assessment/Plan (1) Closed displaced intertrochanteric fracture of right femur Current Visit: Yes Status: Acute (2) Sepsis Current Visit: Yes Status: Acute (3) Coagulopathy Current Visit: No Status: Acute (4) Pancytopenia Current Visit: No Status: Acute
--- NOTE | 2017-11-17 20:33 | CP.PCM.PN ---
Subjective - Date & Time of Evaluation Date of Evaluation: 11/17/17 Time of Evaluation: 14:20 - Subjective Subjective: clinically same Objective - Vital Signs/Intake and Output Vital Signs (last 24 hours): Temp Pulse Resp BP Pulse Ox 98.5 F 83 14 126/52 L 100 11/17/17 16:00 11/17/17 19:28 11/17/17 19:28 11/17/17 19:28 11/17/17 19:28 Intake and Output: 11/17/17 11/18/17 18:59 06:59 Intake Total 1060 80 Output Total 405 30 Balance 655 50 - Medications Medications: Current Medications Albumin Human (Albumin Human 25% (12.5 Gm/50 Ml)) 12.5 gm IV Q8H [facility] Stop: 11/18/17 13:16 Last Admin: 11/17/17 13:15 Dose: 12.5 gm Albuterol/Ipratropium (Duoneb 3 Mg/0.5 Mg (3 Ml) Ud) 3 ml INH RQ6 [facility] Last Admin: 11/17/17 19:13 Dose: 3 ml Bumetanide (Bumex) 1 mg PO DAILY [facility] Last Admin: 11/17/17 09:48 Dose: 1 mg Duloxetine HCl (Cymbalta) 30 mg PO DAILY [facility] Last Admin: 11/17/17 09:48 Dose: 30 mg Ferrous Sulfate (Feosol) 325 mg PO DAILY [facility] Last Admin: 11/17/17 09:47 Dose: 325 mg Furosemide (Lasix) 40 mg PO DAILY [facility] Last Admin: 11/17/17 09:47 Dose: 40 mg Gabapentin (Neurontin) 300 mg PO BID [facility] Last Admin: 11/17/17 17:34 Dose: 300 mg Aztreonam 1 gm/ Sodium (Chloride) 100 mls @ 100 mls/hr IVPB Q12H [facility] Last Admin: 11/17/17 09:00 Dose: 100 mls/hr Vancomycin HCl (Vancocin 750mg/D5w 150 Ml) 150 mls @ 150 mls/hr IVPB Q12H [facility] Last Admin: 11/17/17 10:57 Dose: Not Given Insulin Aspart (Novolog) 0 unit SC ACHS [facility] PRN Reason: Protocol Last Admin: 11/17/17 17:33 Dose: 6 unit Insulin Glargine (Lantus) 20 unit SC [facility] Last Admin: 11/16/17 21:20 Dose: 20 units Lactulose (Enulose) 200 gm TN Q12 [facility] Last Admin: 11/17/17 13:19 Dose: Not Given Magnesium Oxide (Mag-Ox) 400 mg PO BID [facility] Last Admin: 11/17/17 17:34 Dose: 400 mg Pantoprazole Sodium (Protonix Inj) 40 mg IVP Q12H [facility] Last Admin: 11/17/17 09:30 Dose: 40 mg Propranolol HCl (Inderal) 10 mg PO BID [facility] Last Admin: 11/17/17 17:34 Dose: 10 mg Rifaximin (Xifaxan) 550 mg PO BID [facility] Last Admin: 11/17/17 17:34 Dose: 550 mg Spironolactone (Aldactone) 50 mg PO DAILY [facility] Last Admin: 11/17/17 09:48 Dose: 50 mg Vitamin A (Vitamin A & D Oint Ud Foilpak) 1 ea TOP Q4 [facility] Last Admin: 11/17/17 17:35 Dose: 1 ea - Labs Labs: 11/17/17 06:38 11/17/17 06:38 PT 22.5 SECONDS (9.7-12.2) H 11/17/17 06:38 INR 2.0 11/17/17 06:38 APTT 40 SECONDS (21-34) H 11/17/17 06:38
[2017-11-17] MEDS: (Lantus) Insulin Glargine, Recombinant SC SCH (22:39)
[2017-11-18] MEDS: Albuterol-Ipratrop 3 mg / 0.5 (3 ml) UD INH SCH ×4 (02:24→21:00)
[2017-11-18] MEDS: Albumin Human 25% (12.5 gm/50 ml) IV SCH ×2 (04:38→12:41)
[2017-11-18] MEDS: Vitamins A & D Oint UD Foilpak TOP SCH ×5 (04:39→20:30)
[2017-11-18 04:56] LABS: EOS # 0.1 K/uL (0.0-0.7); MEAN CORPUSCULAR HEMOGLOBIN 32.7 pg (27.0-31.0); MONO # 0.2 K/uL (0.0-0.8)
[2017-11-18 05:05] LABS: BASO % 0.9 % (0.0-2.0); EOS % 3.4 % (0.0-4.0); HEMOGLOBIN 9.6 g/dL (11.0-16.0); LYMPH # 0.4 K/uL (1.0-4.3); LYMPH % 10.5 % (20.0-40.0); MEAN CELL VOLUME 94.1 fL (81.0-99.0); MEAN CORPUSCULAR HGB CONC 34.8 g/dL (33.0-37.0); MEAN PLATELET VOLUME 9.9 fL (7.2-11.7); MONO % 4.4 % (0.0-10.0); NEUT % 80.8 % (50.0-75.0); NRBC % 1.4 % (0.0-2.0); RBC 2.92 Mil/uL (3.80-5.20); RED CELL DISTRIBUTION WIDTH 17.5 % (11.5-14.5); WHITE BLOOD COUNT 3.7 K/uL (4.8-10.8)
[2017-11-18 05:12] LABS: ALB/GLOB RATIO 1.1 (1.0-2.1); ALT/SGPT 29 U/L (9-52); AST/SGOT 37 U/L (14-36); BLOOD UREA NITROGEN 37 mg/dL (7-17); CALCIUM 8.6 mg/dl (8.6-10.4); GFR AFRICAN-AMERICAN > 60; GFR NON-AFRICAN AMERICAN > 60; MAGNESIUM 1.7 mg/dL (1.6-2.3)
[2017-11-18] MEDS: Aztreonam 1 GM in Sodium Chloride 0.9% 100 ML IVPB SCH ×2 (08:30→19:35)
--- NOTE | 2017-11-18 09:07 | CP.PCM.PN ---
Subjective - Date & Time of Evaluation Date of Evaluation: 11/16/17 Time of Evaluation: 16:00 - Subjective Subjective: pt lying in bed in ICU, arousable, looks comfortable. Objective - Vital Signs/Intake and Output Vital Signs (last 24 hours): Temp Pulse Resp BP Pulse Ox 98.6 F 84 14 120/50 L 100 11/18/17 04:00 11/18/17 06:28 11/18/17 06:28 11/18/17 06:28 11/18/17 06:28 Intake and Output: 11/18/17 11/18/17 06:59 18:59 Intake Total 760 Output Total 430 Balance 330 - Medications Medications: Current Medications Albumin Human (Albumin Human 25% (12.5 Gm/50 Ml)) 12.5 gm IV Q8H [facility] Stop: 11/18/17 13:16 Last Admin: 11/18/17 04:38 Dose: 12.5 gm Albuterol/Ipratropium (Duoneb 3 Mg/0.5 Mg (3 Ml) Ud) 3 ml INH RQ6 [facility] Last Admin: 11/18/17 07:05 Dose: 3 ml Bumetanide (Bumex) 1 mg PO DAILY [facility] Last Admin: 11/17/17 09:48 Dose: 1 mg Duloxetine HCl (Cymbalta) 30 mg PO DAILY [facility] Last Admin: 11/17/17 09:48 Dose: 30 mg Ferrous Sulfate (Feosol) 325 mg PO DAILY [facility] Last Admin: 11/17/17 09:47 Dose: 325 mg Furosemide (Lasix) 40 mg PO DAILY [facility] Last Admin: 11/17/17 09:47 Dose: 40 mg Gabapentin (Neurontin) 300 mg PO BID [facility] Last Admin: 11/17/17 17:34 Dose: 300 mg Aztreonam 1 gm/ Sodium (Chloride) 100 mls @ 100 mls/hr IVPB Q12H [facility] Last Admin: 11/17/17 20:18 Dose: 100 mls/hr Vancomycin HCl (Vancocin 750mg/D5w 150 Ml) 150 mls @ 150 mls/hr IVPB Q12H [facility] Last Admin: 11/17/17 10:57 Dose: Not Given Insulin Aspart (Novolog) 0 unit SC ACHS [facility] PRN Reason: Protocol Last Admin: 11/17/17 22:29 Dose: Not Given Insulin Glargine (Lantus) 20 unit SC HS [facility] Last Admin: 11/17/17 22:39 Dose: 20 units Lactulose (Enulose) 200 gm NE Q12 [facility] Last Admin: 11/17/17 22:39 Dose: 200 gm Magnesium Oxide (Mag-Ox) 400 mg PO BID [facility] Last Admin: 11/17/17 17:34 Dose: 400 mg Pantoprazole Sodium (Protonix Inj) 40 mg IVP Q12H [facility] Last Admin: 11/17/17 21:23 Dose: 40 mg Propranolol HCl (Inderal) 10 mg PO BID [facility] Last Admin: 11/17/17 17:34 Dose: 10 mg Rifaximin (Xifaxan) 550 mg PO BID [facility] Last Admin: 11/17/17 17:34 Dose: 550 mg Spironolactone (Aldactone) 50 mg PO DAILY [facility] Last Admin: 11/17/17 09:48 Dose: 50 mg Vitamin A (Vitamin A & D Oint Ud Foilpak) 1 ea TOP Q4 [facility] Last Admin: 11/18/17 04:39 Dose: 1 ea - Labs Labs: 11/18/17 04:49 11/18/17 04:49 PT 22.5 SECONDS (9.7-12.2) H 11/17/17 06:38 INR 2.0 11/17/17 06:38 APTT 40 SECONDS (21-34) H 11/17/17 06:38 - Extremities Exam Additional comments: Right Lower Extremity/hip: dressings c/d/i. -swelling at hip or thigh, - redness/warmth/ecchymosis able to tolerate ROM, - logroll reacts to pain with +5/5 gross motor hip fx/ext, knee flex/ext, ankle df/pf, toes up & down sensory intact L2-S2 (reacts to painful stimuli) 2+ DP, BCR all toes Assessment and Plan (1) Closed displaced intertrochanteric fracture of right femur Assessment & Plan: 72 yo Female w/ multiple PMH presented to the ER at with R hip pain and inability to ambulate for 1 day on 12/09/16. Dx= R hip displaced IT hip fracture s/p closed reduction and internal fixation with hip nail 11/13/17 POD# 3 Admitted to ICU POD#1 with DDX = sepsis and liver failure PLan: R hip: -dressing c/d/i, healing well -thigh/hip doesn't show evidence of severe swelling or bleeding -under these circumstances, consider holding DVT proph (low plt, high INR) -no restrictions, WBAT -physical therapy= OOB if medically cleared, ambulation, ROM -IS -pain control PRN -will follow Medical care per ICU staff. Abx per ID consult. seems to have stabilized after the diligent care in ICU and multiple transfusions/ IV abx. Please contact me with any questions, updates, concerns, . Mehdi Flynn MD Orthopedic Surgery Status: Acute
[2017-11-18] MEDS: (Novolog) Insulin Aspart, Recombinant 100 u/ml 10 ml vial SC SCH ×4 (09:22→22:05)
[2017-11-18] MEDS: Magnesium Oxide 400 mg Tab UD PO SCH ×2 (09:26→17:12)
--- NOTE | 2017-11-18 13:18 | CP.PCM.PN ---
Subjective - Date & Time of Evaluation Date of Evaluation: 11/18/17 Time of Evaluation: 13:15 - Subjective Subjective: Ortho f/u as per Dr. Flynn Patient in chair. Complaining of right hip and thigh pain. Denies numbness/ tingling. Objective - Vital Signs/Intake and Output Vital Signs (last 24 hours): Temp Pulse Resp BP Pulse Ox 98.6 F 84 14 134/60 100 11/18/17 04:00 11/18/17 06:28 11/18/17 06:28 11/18/17 09:27 11/18/17 06:28 Intake and Output: 11/18/17 11/18/17 06:59 18:59 Intake Total 760 Output Total 430 Balance 330 - Medications Medications: Current Medications Albumin Human (Albumin Human 25% (12.5 Gm/50 Ml)) 12.5 gm IV Q8H [facility] Stop: 11/18/17 13:16 Last Admin: 11/18/17 12:41 Dose: 12.5 gm Albuterol/Ipratropium (Duoneb 3 Mg/0.5 Mg (3 Ml) Ud) 3 ml INH RQ6 [facility] Last Admin: 11/18/17 07:05 Dose: 3 ml Bumetanide (Bumex) 1 mg PO DAILY [facility] Last Admin: 11/18/17 09:24 Dose: 1 mg Duloxetine HCl (Cymbalta) 30 mg PO DAILY [facility] Last Admin: 11/18/17 09:26 Dose: 30 mg Ferrous Sulfate (Feosol) 325 mg PO DAILY [facility] Last Admin: 11/18/17 09:26 Dose: 325 mg Furosemide (Lasix) 40 mg PO DAILY [facility] Last Admin: 11/18/17 09:27 Dose: 40 mg Gabapentin (Neurontin) 300 mg PO BID [facility] Last Admin: 11/18/17 09:24 Dose: 300 mg Aztreonam 1 gm/ Sodium (Chloride) 100 mls @ 100 mls/hr IVPB Q12H [facility] Last Admin: 11/18/17 08:30 Dose: 100 mls/hr Vancomycin HCl (Vancocin 750mg/D5w 150 Ml) 150 mls @ 150 mls/hr IVPB Q12H [facility] Last Admin: 11/17/17 10:57 Dose: Not Given Insulin Aspart (Novolog) 0 unit SC ACHS [facility] PRN Reason: Protocol Last Admin: 11/18/17 12:15 Dose: 10 unit Insulin Glargine (Lantus) 20 unit SC HS [facility] Last Admin: 11/17/17 22:39 Dose: 20 units Lactulose (Enulose) 20 gm PO BID [facility] Last Admin: 11/18/17 12:00 Dose: 20 gm Magnesium Oxide (Mag-Ox) 400 mg PO BID [facility] Last Admin: 11/18/17 09:26 Dose: 400 mg Pantoprazole Sodium (Protonix Inj) 40 mg IVP Q12H [facility] Last Admin: 11/18/17 09:45 Dose: 40 mg Propranolol HCl (Inderal) 10 mg PO BID [facility] Last Admin: 11/18/17 09:26 Dose: 10 mg Rifaximin (Xifaxan) 550 mg PO BID [facility] Last Admin: 11/18/17 09:26 Dose: 550 mg Spironolactone (Aldactone) 50 mg PO DAILY [facility] Last Admin: 11/18/17 09:27 Dose: 50 mg Vitamin A (Vitamin A & D Oint Ud Foilpak) 1 ea TOP Q4 [facility] Last Admin: 11/18/17 12:41 Dose: 1 ea - Labs Labs: 11/18/17 04:49 11/18/17 04:49 PT 22.5 SECONDS (9.7-12.2) H 11/17/17 06:38 INR 2.0 11/17/17 06:38 APTT 40 SECONDS (21-34) H 11/17/17 06:38 - Constitutional Appears: Well, No Acute Distress - Head Exam Head Exam: ATRAUMATIC - Extremities Exam Additional comments: Right hip: dressing changed. Distal incision site with mod serosang drainage. No erythema. Proximal site dry. Noted significant peripheral edema pitting BLE +ROM ankle/toes, toes warm, good cap refill, sensation itnact Assessment and Plan (1) Closed displaced intertrochanteric fracture of right femur Assessment & Plan: POD#5 s/p right hip CR/IM nail PT/OT VTE proph orthopedically stable d/w DR. Flynn agrees with above Status: Acute
--- NOTE | 2017-11-18 14:58 | CP.PCM.PN ---
Subjective - Date & Time of Evaluation Date of Evaluation: 11/18/17 Time of Evaluation: 14:56 - Subjective Subjective: CC: Liver disease In ICU, more alert and talkative. Tolerates PO Objective - Vital Signs/Intake and Output Vital Signs (last 24 hours): Temp Pulse Resp BP Pulse Ox 98.6 F 84 14 134/60 100 11/18/17 04:00 11/18/17 06:28 11/18/17 06:28 11/18/17 09:27 11/18/17 06:28 Intake and Output: 11/18/17 11/18/17 06:59 18:59 Intake Total 760 Output Total 430 Balance 330 - Medications Medications: Current Medications Albuterol/Ipratropium (Duoneb 3 Mg/0.5 Mg (3 Ml) Ud) 3 ml INH RQ6 [facility] Last Admin: 11/18/17 13:30 Dose: 3 ml Bumetanide (Bumex) 1 mg PO DAILY [facility] Last Admin: 11/18/17 09:24 Dose: 1 mg Duloxetine HCl (Cymbalta) 30 mg PO DAILY [facility] Last Admin: 11/18/17 09:26 Dose: 30 mg Ferrous Sulfate (Feosol) 325 mg PO DAILY [facility] Last Admin: 11/18/17 09:26 Dose: 325 mg Furosemide (Lasix) 40 mg PO DAILY [facility] Last Admin: 11/18/17 09:27 Dose: 40 mg Gabapentin (Neurontin) 300 mg PO BID [facility] Last Admin: 11/18/17 09:24 Dose: 300 mg Aztreonam 1 gm/ Sodium (Chloride) 100 mls @ 100 mls/hr IVPB Q12H [facility] Last Admin: 11/18/17 08:30 Dose: 100 mls/hr Vancomycin HCl (Vancocin 750mg/D5w 150 Ml) 150 mls @ 150 mls/hr IVPB Q12H [facility] Last Admin: 11/17/17 10:57 Dose: Not Given Insulin Aspart (Novolog) 0 unit SC ACHS [facility] PRN Reason: Protocol Last Admin: 11/18/17 12:15 Dose: 10 unit Insulin Glargine (Lantus) 20 unit SC HS [facility] Last Admin: 11/17/17 22:39 Dose: 20 units Lactulose (Enulose) 20 gm PO BID [facility] Last Admin: 11/18/17 12:00 Dose: 20 gm Magnesium Oxide (Mag-Ox) 400 mg PO BID [facility] Last Admin: 11/18/17 09:26 Dose: 400 mg Pantoprazole Sodium (Protonix Inj) 40 mg IVP Q12H [facility] Last Admin: 11/18/17 09:45 Dose: 40 mg Propranolol HCl (Inderal) 10 mg PO BID [facility] Last Admin: 11/18/17 09:26 Dose: 10 mg Rifaximin (Xifaxan) 550 mg PO BID [facility] Last Admin: 11/18/17 09:26 Dose: 550 mg Spironolactone (Aldactone) 50 mg PO DAILY [facility] Last Admin: 11/18/17 09:27 Dose: 50 mg Vitamin A (Vitamin A & D Oint Ud Foilpak) 1 ea TOP Q4 [facility] Last Admin: 11/18/17 12:41 Dose: 1 ea - Labs Labs: 11/18/17 04:49 11/18/17 04:49 PT 22.5 SECONDS (9.7-12.2) H 11/17/17 06:38 INR 2.0 11/17/17 06:38 APTT 40 SECONDS (21-34) H 11/17/17 06:38 - Constitutional Appears: Chronically Ill - Head Exam Head Exam: NORMOCEPHALIC - Eye Exam Eye Exam: Scleral icterus - Respiratory Exam Respiratory Exam: NORMAL BREATHING PATTERN - Cardiovascular Exam Cardiovascular Exam: REGULAR RHYTHM - GI/Abdominal Exam GI & Abdominal Exam: Soft. absent: Guarding, Tenderness Assessment and Plan (1) Closed displaced intertrochanteric fracture of right femur Status: Acute (2) Anemia Status: Acute (3) Cirrhosis Assessment & Plan: Stabilizing with supportive care Status: Acute (4) Coagulopathy Assessment & Plan: chronic No active bleeding Status: Acute (5) Hepatic encephalopathy Assessment & Plan: Clinically improving Status: Acute
--- NOTE | 2017-11-18 15:47 | CP.CCUPN ---
CCU Subjective - Physician Review Subjective (Free Text): 11/18/17 15:44 Patient seen and examined at bedside. Patient resting comfortably in bed with no acute events overnight. Patient less confused today and more responsive. Patient complaining of headache and b/l hip pain moreso on the right where her surgery was. She denies CP, SOB, palpitations, abdominal pain, n/v/d. CCU Objective - Vital Signs / Intake & Output Intake and Output (Last 8hrs): Intake & Output 11/18/17 11/18/17 11/18/17 06:59 14:59 22:59 Intake Total 290 Output Total 325 Balance -35 Intake: Intake, IV Amount 50 Right Forearm 50 Oral 240 Output: Urine 325 Urethral (George) 325 Other: # Bowel Movements 1 - Physical Exam Head: Positive for: Atraumatic, Normocephalic Pupils: Positive for: PERRL Mouth: Positive for: Moist Mucous Membranes Respiratory/Chest: Positive for: Clear to Auscultation, Good Air Exchange. Negative for: Respiratory Distress, Accessory Muscle Use Cardiovascular: Positive for: Regular Rate and Rhythm, Normal S1, S2 Abdomen: Positive for: Tenderness (LLQ ), Normal Bowel Sounds. Negative for: Distention, Peritoneal Signs Upper Extremity: Positive for: Normal Inspection Lower Extremity: Positive for: Normal Inspection, Other (s/p ORIF right hip ) Neurological: Positive for: GCS=15 Skin: Positive for: Warm, Dry, Normal Color. Negative for: Rashes Psychiatric: Negative for: Oriented x 3 - Medications Active Medications: Active Medications Generic Name Dose Route Start Last Admin Trade Name Freq PRN Reason Stop Dose Admin Albuterol/Ipratropium 3 ml 11/15/17 14:00 11/18/17 13:30 Duoneb 3 Mg/0.5 Mg (3 Ml) Ud INH 3 ml RQ6 [facility] Administration Bumetanide 1 mg 11/09/17 10:00 11/18/17 09:24 Bumex PO 1 mg DAILY [facility] Administration Duloxetine HCl 30 mg 11/09/17 10:00 11/18/17 09:26 Cymbalta PO 30 mg DAILY [facility] Administration Ferrous Sulfate 325 mg 11/09/17 10:00 11/18/17 09:26 Feosol PO 325 mg DAILY [facility] Administration Furosemide 40 mg 11/16/17 13:15 11/18/17 09:27 Lasix PO 40 mg DAILY [facility] Administration Gabapentin 300 mg 11/09/17 10:00 11/18/17 09:24 Neurontin PO 300 mg BID [facility] Administration Aztreonam 1 gm/ Sodium 100 mls @ 100 mls/hr 11/14/17 08:00 11/18/17 08:30 Chloride IVPB 100 mls/hr Q12H [facility] Administration Vancomycin HCl 150 mls @ 150 mls/hr 11/14/17 10:00 11/17/17 10:57 Vancocin 750mg/D5w 150 Ml IVPB Not Given Q12H [facility] Insulin Aspart 0 unit 11/15/17 11:29 11/18/17 12:15 Novolog SC 10 unit ACHS [facility] Administration Protocol Insulin Glargine 20 unit 11/16/17 22:00 11/17/17 22:39 Lantus SC 20 units HS [facility] Administration Lactulose 20 gm 11/18/17 11:00 11/18/17 12:00 Enulose PO 20 gm BID [facility] Administration Magnesium Oxide 400 mg 11/16/17 22:30 11/18/17 09:26 Mag-Ox PO 400 mg BID [facility] Administration Pantoprazole Sodium 40 mg 11/13/17 08:30 11/18/17 09:45 Protonix Inj IVP 40 mg Q12H [facility] Administration Propranolol HCl 10 mg 11/09/17 10:00 11/18/17 09:26 Inderal PO 10 mg BID [facility] Administration Rifaximin 550 mg 11/12/17 18:00 11/18/17 09:26 Xifaxan PO 550 mg BID [facility] Administration Spironolactone 50 mg 11/16/17 13:15 11/18/17 09:27 Aldactone PO 50 mg DAILY [facility] Administration Vitamin A 1 ea 11/12/17 09:07 11/18/17 12:41 Vitamin A & D Oint Ud Foilpak TOP 1 ea Q4 [facility] Administration - Patient Studies Lab Studies: Microbiology Studies 11/14/17 06:37 Blood Culture - Preliminary Blood NO GROWTH AFTER 4 DAYS 11/14/17 06:50 Blood Culture - Preliminary Blood NO GROWTH AFTER 4 DAYS Lab Studies 11/18/17 11/18/17 11/18/17 Range/Units 12:03 07:30 04:49 WBC (4.8-10.8) K/uL RBC (3.80-5.20) Mil/uL Hgb (11.0-16.0) g/dL Hct (34.0-47.0) % MCV (81.0-99.0) fL MCH (27.0-31.0) pg MCHC (33.0-37.0) g/dL RDW (11.5-14.5) % Plt Count (130-400) K/uL MPV (7.2-11.7) fL Neut % (Auto) (50.0-75.0) % Lymph % (Auto) (20.0-40.0) % [place] % (Auto) (0.0-10.0) % Eos % (Auto) (0.0-4.0) % Baso % (Auto) (0.0-2.0) % Neut # (1.8-7.0) K/uL Lymph # (1.0-4.3) K/uL [place] # (0.0-0.8) K/uL Eos # (0.0-0.7) K/uL Baso # (0.0-0.2) K/uL Sodium 130 L (132-148) mmol/L Potassium 4.2 (3.6-5.2) mmol/L Chloride 97 L (98-107) mmol/L Carbon Dioxide 27 (22-30) mmol/L Anion Gap 10 (10-20) BUN 37 H (7-17) mg/dL Creatinine 0.9 (0.7-1.2) mg/dL Est GFR ( Amer) > 60 Est GFR (Non-Af Amer) > 60 POC Glucose (mg/dL) 399 H 313 H (65-110) mg/dL Random Glucose 257 H (65-105) mg/dL Calcium 8.6 (8.6-10.4) mg/dl Phosphorus 2.3 L (2.5-4.5) mg/dL Magnesium 1.7 (1.6-2.3) mg/dL Total Bilirubin 10.5 H (0.2-1.3) mg/dL AST 37 H (14-36) U/L ALT 29 (9-52) U/L Alkaline Phosphatase 96 (38-126) U/L Total Protein 5.7 L (6.3-8.3) g/dL Albumin 3.0 L D (3.5-5.0) g/dL Globulin 2.7 (2.2-3.9) gm/dL Albumin/Globulin Ratio 1.1 (1.0-2.1) Random Vancomycin ug/mL 11/18/17 11/17/17 11/17/17 Range/Units 04:49 21:17 17:22 WBC 3.7 L (4.8-10.8) K/uL RBC 2.92 L (3.80-5.20) Mil/uL Hgb 9.6 L (11.0-16.0) g/dL Hct 27.5 L (34.0-47.0) % MCV 94.1 (81.0-99.0) fL MCH 32.7 H (27.0-31.0) pg MCHC 34.8 (33.0-37.0) g/dL RDW 17.5 H (11.5-14.5) % Plt Count 24 L* (130-400) K/uL MPV 9.9 (7.2-11.7) fL Neut % (Auto) 80.8 H (50.0-75.0) % Lymph % (Auto) 10.5 L (20.0-40.0) % [place] % (Auto) 4.4 (0.0-10.0) % Eos % (Auto) 3.4 (0.0-4.0) % Baso % (Auto) 0.9 (0.0-2.0) % Neut # 3.0 (1.8-7.0) K/uL Lymph # 0.4 L (1.0-4.3) K/uL [place] # 0.2 (0.0-0.8) K/uL Eos # 0.1 (0.0-0.7) K/uL Baso # 0.0 (0.0-0.2) K/uL Sodium (132-148) mmol/L Potassium (3.6-5.2) mmol/L Chloride (98-107) mmol/L Carbon Dioxide (22-30) mmol/L Anion Gap (10-20) BUN (7-17) mg/dL Creatinine (0.7-1.2) mg/dL Est GFR ( Amer) Est GFR (Non-Af Amer) POC Glucose (mg/dL) 270 H (65-110) mg/dL Random Glucose (65-105) mg/dL Calcium (8.6-10.4) mg/dl Phosphorus (2.5-4.5) mg/dL Magnesium (1.6-2.3) mg/dL Total Bilirubin (0.2-1.3) mg/dL AST (14-36) U/L ALT (9-52) U/L Alkaline Phosphatase (38-126) U/L Total Protein (6.3-8.3) g/dL Albumin (3.5-5.0) g/dL Globulin (2.2-3.9) gm/dL Albumin/Globulin Ratio (1.0-2.1) Random Vancomycin 19.99 ug/mL 11/17/17 Range/Units 16:47 WBC (4.8-10.8) K/uL RBC (3.80-5.20) Mil/uL Hgb (11.0-16.0) g/dL Hct (34.0-47.0) % MCV (81.0-99.0) fL MCH (27.0-31.0) pg MCHC (33.0-37.0) g/dL RDW (11.5-14.5) % Plt Count (130-400) K/uL MPV (7.2-11.7) fL Neut % (Auto) (50.0-75.0) % Lymph % (Auto) (20.0-40.0) % [place] % (Auto) (0.0-10.0) % Eos % (Auto) (0.0-4.0) % Baso % (Auto) (0.0-2.0) % Neut # (1.8-7.0) K/uL Lymph # (1.0-4.3) K/uL [place] # (0.0-0.8) K/uL Eos # (0.0-0.7) K/uL Baso # (0.0-0.2) K/uL Sodium (132-148) mmol/L Potassium (3.6-5.2) mmol/L Chloride (98-107) mmol/L Carbon Dioxide (22-30) mmol/L Anion Gap (10-20) BUN (7-17) mg/dL Creatinine (0.7-1.2) mg/dL Est GFR ( Amer) Est GFR (Non-Af Amer) POC Glucose (mg/dL) 275 H (65-110) mg/dL Random Glucose (65-105) mg/dL Calcium (8.6-10.4) mg/dl Phosphorus (2.5-4.5) mg/dL Magnesium (1.6-2.3) mg/dL Total Bilirubin (0.2-1.3) mg/dL AST (14-36) U/L ALT (9-52) U/L Alkaline Phosphatase (38-126) U/L Total Protein (6.3-8.3) g/dL Albumin (3.5-5.0) g/dL Globulin (2.2-3.9) gm/dL Albumin/Globulin Ratio (1.0-2.1) Random Vancomycin ug/mL Laboratory Results - last 24 hr 11/17/17 11/17/17 11/17/17 16:47 17:22 21:17 WBC RBC Hgb Hct MCV MCH MCHC RDW Plt Count MPV Neut % (Auto) Lymph % (Auto) [place] % (Auto) Eos % (Auto) Baso % (Auto) Neut # Lymph # [place] # Eos # Baso # Sodium Potassium Chloride Carbon Dioxide Anion Gap BUN Creatinine Est GFR ( Amer) Est GFR (Non-Af Amer) POC Glucose (mg/dL) 275 H 270 H Random Glucose Calcium Phosphorus Magnesium Total Bilirubin AST ALT Alkaline Phosphatase Total Protein Albumin Globulin Albumin/Globulin Ratio Random Vancomycin 19.99 11/18/17 11/18/17 11/18/17 04:49 04:49 07:30 WBC 3.7 L RBC 2.92 L Hgb 9.6 L Hct 27.5 L MCV 94.1 MCH 32.7 H MCHC 34.8 RDW 17.5 H Plt Count 24 L* MPV 9.9 Neut % (Auto) 80.8 H Lymph % (Auto) 10.5 L [place] % (Auto) 4.4 Eos % (Auto) 3.4 Baso % (Auto) 0.9 Neut # 3.0 Lymph # 0.4 L [place] # 0.2 Eos # 0.1 Baso # 0.0 Sodium 130 L Potassium 4.2 Chloride 97 L Carbon Dioxide 27 Anion Gap 10 BUN 37 H Creatinine 0.9 Est GFR ( Amer) > 60 Est GFR (Non-Af Amer) > 60 POC Glucose (mg/dL) 313 H Random Glucose 257 H Calcium 8.6 Phosphorus 2.3 L Magnesium 1.7 Total Bilirubin 10.5 H AST 37 H ALT 29 Alkaline Phosphatase 96 Total Protein 5.7 L Albumin 3.0 L D Globulin 2.7 Albumin/Globulin Ratio 1.1 Random Vancomycin 11/18/17 12:03 WBC RBC Hgb Hct MCV MCH MCHC RDW Plt Count MPV Neut % (Auto) Lymph % (Auto) [place] % (Auto) Eos % (Auto) Baso % (Auto) Neut # Lymph # [place] # Eos # Baso # Sodium Potassium Chloride Carbon Dioxide Anion Gap BUN Creatinine Est GFR ( Amer) Est GFR (Non-Af Amer) POC Glucose (mg/dL) 399 H Random Glucose Calcium Phosphorus Magnesium Total Bilirubin AST ALT Alkaline Phosphatase Total Protein Albumin Globulin Albumin/Globulin Ratio Random Vancomycin Fingerstick Blood Sugar Results: 399 Review of Systems - Review of Systems All systems: reviewed and no additional remarkable complaints except (as per HPI ) Critical Care Progress Note - Nutrition Nutrition: Nutrition Category Date Time Status Dysphagia/Modified Consistency Diet [DIET] Diets 11/16/17 Lunch Active Assessment/Plan - Assessment and Plan (Free Text) Assessment: 72F with PMH of Hepatitis C with cirrhosis and resulting hepatic encephalopathy , hypertension, splenomegaly, pancytopenia, history of multiple GI bleeds, diabetes, and recent right IT hip fracture s/p ORIF right hip who presented to the ICU with sepsis and recent urine cultures positive for coagulase negative Staphylococcus and Enterococcus faecalis. Status-post ORIF of intratrochanteric fracture of right femur, POD #4 Cirrhosis H/o Hepatic Encephalopathy Anemia Coagulopathy Plan: Disposition: patient stable for transfer to regular floor Neuro A&Ox3 GCS: 15 11/15/16 CT Head: Nonspecific white matter changes. Acute infarction may be CT occult within first 24 hours. If a focal deficit persists, consider follow-up CT or MRI for further evaluation. Toradol Gabapentin 300 mg PO BID Psych Cymbalta 30 mg PO QD Restoril 15 mg PO HS Cardio HR: WNL BP: 120/44 Cardiology consulted (Dr. Napier) - recs appreciated 11/09/17 Echo: normal LVF, EF 59.1%, moderate tricuspid regurgitation, RV systolic pressure >60 mmHg (estimated), LV filling pressure probably inc. 11/14/17 CXR: Central vascular mild pulmonary venous congestion. Probable small left pleural effusion. Mild left basilar atelectasis/infiltrate. Cardiomegaly. Propranolol 10 mg PO BID Respiratory O2 sat: 100% on 2L NC VBG (11/14/17): 7.45/38/52/26.5 ABG (11/15/17): 7.43/41/93/27.0 11/14/17 CXR: Central vascular mild pulmonary venous congestion. Probable small left pleural effusion. Mild left basilar atelectasis/infiltrate. Cardiomegaly. 11/15/17 CT Angiography of chest: No definite CT evidence of pulmonary embolism. Bibasilar atelectasis. Superimposed pneumonia not excluded. Mild anasarca. Duonebs 3 ml INH RQ6 [facility]: Determined to be orthopedically stable by ortho on 11/18/17 Ortho consult (Dr. Flynn) - R Hip dressing c/d/i, healing well; thigh/ hip doesnt show evidence of severe swelling or bleeding. Recommends considering holding DVT proph given low plt and high INR. No restrictions, WBAT. Recommends physical therapy. Recommends pain control PRN. Hip/Pelvis XR: Acute comminuted and displaced right intertrochanteric fracture. [id number] osteopenia. Right Knee XR: No evidence of acute fracture. Advanced osteoarthritic changes. CT Pelvis: Diffuse osteopenia. Acute displaced right intertrochanteric femoral fracture associated with displaced bony fragments and superior displacement of the right femoral shaft. Nondisplaced fracture at the right inferior pubic ramus No evidence of hematoma or free fluid in the pelvis. CT Right Hip: Acute comminuted and displaced right intertrochanteric fractures associated with displaced bony fragment at the lesser trochanter. Acute nondisplaced right inferior pubic ramus fracture. CT Right Knee: No acute findings related to/accounting for the clinical presentation. Tricompartmental degenerative change. Bilateral Knee XR: Bilateral knee osteoarthrosis right knee greater than left knee. Right femoral tibial compartment most notable bilateral patellofemoral compartment osteoarthrosis. Bilateral medial and lateral chondrocalcinosis. Renal 24H Balance: +985 BUN/Cr: 37/0.9 Bumex 1mg PO QD Fluids, electrolytes, nutrition Electrolytes WNL except for mentioned below: Sodium: 130 Potassium: 4.2 Chloride: 97 Calcium: 8.6 Ma.7 Albumin: 3.0 Nutrition: Consistent carbohydrate diet 11/11/17, 11/15/17 Urinalysis: Negative Infectious disease T: 98.6F WBC: 3.7 Lactate (11/15/17): 5.1, 9.1, 5.2 Procalcitonin (11/14/17): 0.53 ID consulted (Dr. Ruggiero) - recommends anticipating cultures from blood urine and sputum. Cultures: 11/11/17: Urine + for coag neg staph 11/14/17: Blood 11/14/17: Urine + for gram positive cocci 11/14/17: MRSA Aztreonam 1g Q12H Vancomycin 750mg Q12H Hematology H&H: 9.6/27.5 Plt: 24 APTT: 40 Heme/Onc Consulted (Dr. Brewster/Dr. Maciel) - recs appreciated 11/12/17 1 unit of platelet 11/13/17 5 units of cryoprecipitate, 2 PRBC, 1 unit of platelets, 2 units of FFP 11/14/17 1 unit of FFP 11/15/17 2 units of cryoprecipitate, 4 units of PRBC, 2 units of platelets Feosol 325 mg PO QD GI AST/ALT: 37/29 Tbili: 10.5 Ammonia (11/15/17): 20 11/15/17 CT angiography of abdomen/pelvis: Fluid/loose stool within bowel may suggest diarrhea illness. Apparent mild haziness about pancreas. Correlate with amylase/lipase levels. Moderate to extensive anasarca. Stranding/air are about right hip, nonspecific. Infection not excluded. Cirrhosis with portal hypertension. GI consulted (Dr. Lazo) - recs appreciated Lactulose 20 g MD TID Rifaximin 550 mg PO BID Endocrine - hx DM monitor blood glucose - currently high 200s - 400s HbA1c (11/14/18): 7.9 Insulin glargine 10U SC QD ISS (High Dose) Immunology Benadryl 25 mg IV Q6 PRN itching/pruritis Integumentary A&D ointment Prophylaxis GI: PPI 40 mg IVP Q12H DVT: SCDs
--- NOTE | 2017-11-18 17:39 | CP.PCM.PN ---
Subjective - Date & Time of Evaluation Date of Evaluation: 11/18/17 Time of Evaluation: 17:31 - Subjective Subjective: The patient feels better, c/o pain in the rt.leg , more awake and alert, no bleeding reported by the nurses. The patient was out of bed to chair today Objective - Vital Signs/Intake and Output Vital Signs (last 24 hours): Temp Pulse Resp BP Pulse Ox 98.6 F 84 14 134/60 100 11/18/17 04:00 11/18/17 06:28 11/18/17 06:28 11/18/17 09:27 11/18/17 06:28 Intake and Output: 11/18/17 11/18/17 06:59 18:59 Intake Total 760 Output Total 430 Balance 330 - Medications Medications: Current Medications Albuterol/Ipratropium (Duoneb 3 Mg/0.5 Mg (3 Ml) Ud) 3 ml INH RQ6 [facility] Last Admin: 11/18/17 13:30 Dose: 3 ml Bumetanide (Bumex) 1 mg PO DAILY [facility] Last Admin: 11/18/17 09:24 Dose: 1 mg Duloxetine HCl (Cymbalta) 30 mg PO DAILY [facility] Last Admin: 11/18/17 09:26 Dose: 30 mg Ferrous Sulfate (Feosol) 325 mg PO DAILY [facility] Last Admin: 11/18/17 09:26 Dose: 325 mg Furosemide (Lasix) 40 mg PO DAILY [facility] Last Admin: 11/18/17 09:27 Dose: 40 mg Gabapentin (Neurontin) 300 mg PO BID [facility] Last Admin: 11/18/17 17:11 Dose: 300 mg Aztreonam 1 gm/ Sodium (Chloride) 100 mls @ 100 mls/hr IVPB Q12H [facility] Last Admin: 11/18/17 08:30 Dose: 100 mls/hr Vancomycin HCl (Vancocin 750mg/D5w 150 Ml) 150 mls @ 150 mls/hr IVPB Q12H [facility] [place] Last Admin: 11/17/17 10:57 Dose: Not Given Insulin Aspart (Novolog) 0 unit SC ACHS [facility] [place] PRN Reason: Protocol Last Admin: 11/18/17 17:08 Dose: 10 unit Insulin Glargine (Lantus) 20 unit SC HS [facility] [place] Last Admin: 11/17/17 22:39 Dose: 20 units Lactulose (Enulose) 20 gm PO BID [facility] [place] Last Admin: 11/18/17 17:10 Dose: 20 gm Magnesium Oxide (Mag-Ox) 400 mg PO BID [facility] [place] Last Admin: 11/18/17 17:12 Dose: 400 mg Pantoprazole Sodium (Protonix Inj) 40 mg IVP Q12H [facility] [place] Last Admin: 11/18/17 09:45 Dose: 40 mg Propranolol HCl (Inderal) 10 mg PO BID [facility] [place] Last Admin: 11/18/17 17:11 Dose: 10 mg Rifaximin (Xifaxan) 550 mg PO BID [facility] [place] Last Admin: 11/18/17 17:11 Dose: 550 mg Spironolactone (Aldactone) 50 mg PO DAILY [facility] [place] Last Admin: 11/18/17 09:27 Dose: 50 mg Vitamin A (Vitamin A & D Oint Ud Foilpak) 1 ea TOP Q4 [facility] [place] Last Admin: 11/18/17 17:13 Dose: 1 ea - Labs Labs: 11/18/17 04:49 11/18/17 04:49 PT 22.5 SECONDS (9.7-12.2) H 11/17/17 06:38 INR 2.0 11/17/17 06:38 APTT 40 SECONDS (21-34) H 11/17/17 06:38 Assessment and Plan (1) Pancytopenia Assessment & Plan: Pancytopenia secondary to hypersplenism, needing blood transfusions without any evidence of bleeding, clinically seems better, but with increasing bilirubin levels, ?anesthesia/meds/transfusions. Hold off on any platelet transfusions for now, the patient in the past has had a poor response to them and is refractory to them. Transient increase 1 day postop most likely "reactive", secondary to bleeding. Recommend PRN transfusions, hold off on any further FFPs or cryoprecipitate unless active bleeding noted, secondary to prothrombotic effect. Status: Acute
[2017-11-18] MEDS ORDERED: Phytonadione 10 mg/ml Inj (Adult) SC STA (17:40)
--- NOTE | 2017-11-18 18:58 | CP.PCM.PN ---
Subjective - Date & Time of Evaluation Date of Evaluation: 11/18/17 Time of Evaluation: 13:40 - Subjective Subjective: clinically same Objective - Vital Signs/Intake and Output Vital Signs (last 24 hours): Temp Pulse Resp BP Pulse Ox 98.3 F 96 H 12 121/52 L 90 L 11/18/17 16:00 11/18/17 18:28 11/18/17 18:28 11/18/17 18:28 11/18/17 18:28 Intake and Output: 11/18/17 11/18/17 06:59 18:59 Intake Total 760 520 Output Total 430 301 Balance 330 219 - Medications Medications: Current Medications Albuterol/Ipratropium (Duoneb 3 Mg/0.5 Mg (3 Ml) Ud) 3 ml INH RQ6 [facility] Last Admin: 11/18/17 13:30 Dose: 3 ml Bumetanide (Bumex) 1 mg PO DAILY [facility] Last Admin: 11/18/17 09:24 Dose: 1 mg Duloxetine HCl (Cymbalta) 30 mg PO DAILY [facility] Last Admin: 11/18/17 09:26 Dose: 30 mg Ferrous Sulfate (Feosol) 325 mg PO DAILY [facility] Last Admin: 11/18/17 09:26 Dose: 325 mg Furosemide (Lasix) 40 mg PO DAILY [facility] Last Admin: 11/18/17 09:27 Dose: 40 mg Gabapentin (Neurontin) 300 mg PO BID [facility] Last Admin: 11/18/17 17:11 Dose: 300 mg Aztreonam 1 gm/ Sodium (Chloride) 100 mls @ 100 mls/hr IVPB Q12H [facility] Last Admin: 11/18/17 08:30 Dose: 100 mls/hr Vancomycin HCl (Vancocin 750mg/D5w 150 Ml) 150 mls @ 150 mls/hr IVPB Q12H [facility] Last Admin: 11/17/17 10:57 Dose: Not Given Insulin Aspart (Novolog) 0 unit SC ACHS [facility] PRN Reason: Protocol Last Admin: 11/18/17 17:08 Dose: 10 unit Insulin Glargine (Lantus) 20 unit SC HS [facility] Last Admin: 11/17/17 22:39 Dose: 20 units Lactulose (Enulose) 20 gm PO BID [facility] Last Admin: 11/18/17 17:10 Dose: 20 gm Magnesium Oxide (Mag-Ox) 400 mg PO BID [facility] Last Admin: 11/18/17 17:12 Dose: 400 mg Pantoprazole Sodium (Protonix Inj) 40 mg IVP Q12H [facility] Last Admin: 11/18/17 09:45 Dose: 40 mg Propranolol HCl (Inderal) 10 mg PO BID [facility] Last Admin: 11/18/17 17:11 Dose: 10 mg Spironolactone (Aldactone) 50 mg PO DAILY [facility] Last Admin: 11/18/17 09:27 Dose: 50 mg Vitamin A (Vitamin A & D Oint Ud Foilpak) 1 ea TOP Q4 [facility] Last Admin: 11/18/17 17:13 Dose: 1 ea - Labs Labs: 11/18/17 04:49 11/18/17 04:49 PT 22.5 SECONDS (9.7-12.2) H 11/17/17 06:38 INR 2.0 11/17/17 06:38 APTT 40 SECONDS (21-34) H 11/17/17 06:38
[2017-11-18] MEDS: (Lantus) Insulin Glargine, Recombinant SC SCH (22:04)
[2017-11-19] MEDS: Vitamins A & D Oint UD Foilpak TOP SCH ×6 (00:06→20:00)
[2017-11-19] MEDS: Albuterol-Ipratrop 3 mg / 0.5 (3 ml) UD INH SCH ×2 (01:24→07:20)
[2017-11-19] MEDS: (Novolog) Insulin Aspart, Recombinant 100 u/ml 10 ml vial SC SCH ×4 (08:15→22:57)
[2017-11-19] MEDS: Aztreonam 1 GM in Sodium Chloride 0.9% 100 ML IVPB SCH ×2 (08:16→19:30)
--- NOTE | 2017-11-19 08:39 | CP.PCM.PN ---
Subjective - Date & Time of Evaluation Date of Evaluation: 11/19/17 Time of Evaluation: 11:20 - Subjective Subjective: clinically same Objective - Vital Signs/Intake and Output Vital Signs (last 24 hours): Temp Pulse Resp BP Pulse Ox 98.6 F 85 16 119/52 L 97 11/19/17 08:00 11/19/17 08:00 11/19/17 08:00 11/19/17 08:00 11/19/17 08:00 Intake and Output: 11/19/17 11/19/17 06:59 18:59 Intake Total 475 Output Total 1200 Balance -725 - Medications Medications: Current Medications Albuterol/Ipratropium (Duoneb 3 Mg/0.5 Mg (3 Ml) Ud) 3 ml INH RQ6 [facility] Last Admin: 11/19/17 07:20 Dose: 3 ml Bumetanide (Bumex) 1 mg PO DAILY [facility] Last Admin: 11/18/17 09:24 Dose: 1 mg Duloxetine HCl (Cymbalta) 30 mg PO DAILY [facility] Last Admin: 11/18/17 09:26 Dose: 30 mg Ferrous Sulfate (Feosol) 325 mg PO DAILY [facility] Last Admin: 11/18/17 09:26 Dose: 325 mg Furosemide (Lasix) 40 mg PO DAILY [facility] Last Admin: 11/18/17 09:27 Dose: 40 mg Gabapentin (Neurontin) 300 mg PO BID [facility] Last Admin: 11/18/17 17:11 Dose: 300 mg Aztreonam 1 gm/ Sodium (Chloride) 100 mls @ 100 mls/hr IVPB Q12H [facility] Last Admin: 11/19/17 08:16 Dose: 100 mls/hr Vancomycin HCl (Vancocin 750mg/D5w 150 Ml) 150 mls @ 150 mls/hr IVPB Q12H [facility] Last Admin: 11/17/17 10:57 Dose: Not Given Insulin Aspart (Novolog) 0 unit SC ACHS [facility] PRN Reason: Protocol Last Admin: 11/19/17 08:15 Dose: 8 unit Insulin Glargine (Lantus) 20 unit SC HS [facility] Last Admin: 11/18/17 22:04 Dose: 20 units Lactulose (Enulose) 20 gm PO BID [facility] Last Admin: 11/18/17 17:10 Dose: 20 gm Magnesium Oxide (Mag-Ox) 400 mg PO BID [facility] Last Admin: 11/18/17 17:12 Dose: 400 mg Pantoprazole Sodium (Protonix Inj) 40 mg IVP Q12H [facility] Last Admin: 11/18/17 20:49 Dose: 40 mg Propranolol HCl (Inderal) 10 mg PO BID [facility] Last Admin: 11/18/17 17:11 Dose: 10 mg Spironolactone (Aldactone) 50 mg PO DAILY [facility] Last Admin: 11/18/17 09:27 Dose: 50 mg Vitamin A (Vitamin A & D Oint Ud Foilpak) 1 ea TOP Q4 [facility] Last Admin: 11/19/17 04:30 Dose: 1 ea - Labs Labs: 11/18/17 04:49 11/18/17 04:49 PT 22.5 SECONDS (9.7-12.2) H 11/17/17 06:38 INR 2.0 11/17/17 06:38 APTT 40 SECONDS (21-34) H 11/17/17 06:38
[2017-11-19] MEDS: Magnesium Oxide 400 mg Tab UD PO SCH ×2 (10:15→19:31)
[2017-11-19] MEDS: Pantoprazole 40 mg EC Tab PO SCH ×2 (11:05→22:59)
--- NOTE | 2017-11-19 16:13 | CP.PCM.PN ---
Subjective - Date & Time of Evaluation Date of Evaluation: 11/19/17 Time of Evaluation: 16:00 - Subjective Subjective: F/U cirrhosis. Was more alert. No report of melena, RB, SOb, fever, hematuria, hemoptysis, GARCIA Objective - Vital Signs/Intake and Output Vital Signs (last 24 hours): Temp Pulse Resp BP Pulse Ox 98.6 F 85 16 136/56 L 97 11/19/17 08:00 11/19/17 08:00 11/19/17 08:00 11/19/17 10:16 11/19/17 08:00 Intake and Output: 11/19/17 11/19/17 06:59 18:59 Intake Total 475 250 Output Total 1200 Balance -725 250 - Medications Medications: Current Medications Albuterol/Ipratropium (Duoneb 3 Mg/0.5 Mg (3 Ml) Ud) 3 ml INH RQ6 [facility] Last Admin: 11/19/17 07:20 Dose: 3 ml Bumetanide (Bumex) 1 mg PO DAILY [facility] Last Admin: 11/19/17 10:15 Dose: 1 mg Duloxetine HCl (Cymbalta) 30 mg PO DAILY [facility] Last Admin: 11/19/17 10:20 Dose: 30 mg Ferrous Sulfate (Feosol) 325 mg PO DAILY [facility] Last Admin: 11/19/17 10:15 Dose: 325 mg Furosemide (Lasix) 40 mg PO DAILY [facility] Last Admin: 11/19/17 10:16 Dose: 40 mg Gabapentin (Neurontin) 300 mg PO BID [facility] Last Admin: 11/19/17 10:15 Dose: 300 mg Hydromorphone HCl (Dilaudid) 1 mg IVP Q8 PRN PRN Reason: Pain, moderate (4-7) Last Admin: 11/19/17 11:04 Dose: 1 mg Aztreonam 1 gm/ Sodium (Chloride) 100 mls @ 100 mls/hr IVPB Q12H [facility] Last Admin: 11/19/17 08:16 Dose: 100 mls/hr Vancomycin HCl (Vancocin 750mg/D5w 150 Ml) 150 mls @ 150 mls/hr IVPB Q12H [facility] Last Admin: 11/17/17 10:57 Dose: Not Given Insulin Aspart (Novolog) 0 unit SC ACHS [facility] PRN Reason: Protocol Last Admin: 11/19/17 12:17 Dose: 8 unit Insulin Glargine (Lantus) 20 unit SC HS [facility] Last Admin: 11/18/17 22:04 Dose: 20 units Lactulose (Enulose) 20 gm PO BID [facility] Last Admin: 11/19/17 10:16 Dose: 20 gm Magnesium Oxide (Mag-Ox) 400 mg PO BID [facility] Last Admin: 11/19/17 10:15 Dose: 400 mg Pantoprazole Sodium (Protonix Ec Tab) 40 mg PO Q12H [facility] Last Admin: 11/19/17 11:05 Dose: 40 mg Propranolol HCl (Inderal) 10 mg PO BID [facility] Last Admin: 11/19/17 10:15 Dose: 10 mg Spironolactone (Aldactone) 50 mg PO DAILY [facility] Last Admin: 11/19/17 10:16 Dose: 50 mg Vitamin A (Vitamin A & D Oint Ud Foilpak) 1 ea TOP Q4 [facility] Last Admin: 11/19/17 12:17 Dose: 1 ea - Labs Labs: 11/18/17 04:49 11/18/17 04:49 PT 22.5 SECONDS (9.7-12.2) H 11/17/17 06:38 INR 2.0 11/17/17 06:38 APTT 40 SECONDS (21-34) H 11/17/17 06:38 - Constitutional Appears: Chronically Ill - Respiratory Exam Respiratory Exam: Clear to Ausculation Bilateral - Cardiovascular Exam Cardiovascular Exam: RRR - GI/Abdominal Exam GI & Abdominal Exam: Normal Bowel Sounds. absent: Guarding, Tenderness, Mass, Rebound - Extremities Exam Extremities Exam: absent: Calf Tenderness - Neurological Exam Neurological Exam: Awake Assessment and Plan (1) Closed traumatic dislocation of hip Status: Acute (2) Cirrhosis Status: Acute (3) Coagulopathy Status: Acute (4) HCV (hepatitis C virus) Status: Acute (5) HTN (hypertension) Status: Acute (6) Hepatic encephalopathy Assessment & Plan: NH3 has been ok. Check mentation. Status: Acute (7) Pancytopenia Status: Acute
[2017-11-19] MEDS: (Lantus) Insulin Glargine, Recombinant SC SCH (22:49)
[2017-11-20] MEDS: Albuterol-Ipratrop 3 mg / 0.5 (3 ml) UD INH SCH ×3 (01:08→13:29)
[2017-11-20] MEDS: (Novolog) Insulin Aspart, Recombinant 100 u/ml 10 ml vial SC SCH ×4 (08:05→21:55)
[2017-11-20] MEDS: Vitamins A & D Oint UD Foilpak TOP SCH ×4 (08:05→22:03)
--- NOTE | 2017-11-20 08:09 | CP.PCM.PN ---
Subjective - Date & Time of Evaluation Date of Evaluation: 11/20/17 Time of Evaluation: 06:40 - Subjective Subjective: clinically same Objective - Vital Signs/Intake and Output Vital Signs (last 24 hours): Temp Pulse Resp BP Pulse Ox 98.3 F 85 20 130/72 98 11/19/17 23:30 11/19/17 23:30 11/19/17 23:30 11/19/17 23:30 11/19/17 23:30 Intake and Output: 11/20/17 11/20/17 06:59 18:59 Intake Total 280 Output Total 550 Balance -270 - Medications Medications: Current Medications Albuterol/Ipratropium (Duoneb 3 Mg/0.5 Mg (3 Ml) Ud) 3 ml INH RQ6 [facility] Last Admin: 11/20/17 07:21 Dose: 3 ml Bumetanide (Bumex) 1 mg PO DAILY [facility] Last Admin: 11/19/17 10:15 Dose: 1 mg Duloxetine HCl (Cymbalta) 30 mg PO DAILY [facility] Last Admin: 11/19/17 10:20 Dose: 30 mg Ferrous Sulfate (Feosol) 325 mg PO DAILY [facility] Last Admin: 11/19/17 10:15 Dose: 325 mg Furosemide (Lasix) 40 mg PO DAILY [facility] Last Admin: 11/19/17 10:16 Dose: 40 mg Gabapentin (Neurontin) 300 mg PO BID [facility] Last Admin: 11/19/17 19:31 Dose: 300 mg Hydromorphone HCl (Dilaudid) 1 mg IVP Q8 PRN PRN Reason: Pain, moderate (4-7) Last Admin: 11/19/17 11:04 Dose: 1 mg Aztreonam 1 gm/ Sodium (Chloride) 100 mls @ 100 mls/hr IVPB Q12H [facility] Last Admin: 11/19/17 19:30 Dose: 100 mls/hr Vancomycin HCl (Vancocin 750mg/D5w 150 Ml) 150 mls @ 150 mls/hr IVPB Q12H [facility] Last Admin: 11/17/17 10:57 Dose: Not Given Insulin Aspart (Novolog) 0 unit SC ACHS [facility] PRN Reason: Protocol Last Admin: 11/19/17 22:57 Dose: Not Given Insulin Glargine (Lantus) 20 unit SC HS [facility] Last Admin: 11/19/17 22:49 Dose: 20 units Lactulose (Enulose) 20 gm PO BID [facility] Last Admin: 11/19/17 19:31 Dose: 20 gm Magnesium Oxide (Mag-Ox) 400 mg PO BID [facility] Last Admin: 11/19/17 19:31 Dose: 400 mg Pantoprazole Sodium (Protonix Ec Tab) 40 mg PO Q12H [facility] Last Admin: 11/19/17 22:59 Dose: 40 mg Propranolol HCl (Inderal) 10 mg PO BID [facility] Last Admin: 11/19/17 19:33 Dose: 10 mg Spironolactone (Aldactone) 50 mg PO DAILY [facility] Last Admin: 11/19/17 10:16 Dose: 50 mg Vitamin A (Vitamin A & D Oint Ud Foilpak) 1 ea TOP Q4 [facility] Last Admin: 11/19/17 20:00 Dose: 1 ea - Labs Labs: 11/18/17 04:49 11/18/17 04:49 PT 22.5 SECONDS (9.7-12.2) H 11/17/17 06:38 INR 2.0 11/17/17 06:38 APTT 40 SECONDS (21-34) H 11/17/17 06:38
[2017-11-20] MEDS: Aztreonam 1 GM in Sodium Chloride 0.9% 100 ML IVPB SCH ×2 (08:51→20:53)
[2017-11-20] MEDS: Magnesium Oxide 400 mg Tab UD PO SCH ×2 (10:34→18:20)
[2017-11-20] MEDS: Pantoprazole 40 mg EC Tab PO SCH ×2 (10:34→22:02)
--- NOTE | 2017-11-20 11:28 | CP.PCM.PN ---
Subjective - Date & Time of Evaluation Date of Evaluation: 11/20/17 Time of Evaluation: 11:25 - Subjective Subjective: CC: F/U Cirrhosis Weak but more alert Less pain No dyspnea Objective - Vital Signs/Intake and Output Vital Signs (last 24 hours): Temp Pulse Resp BP Pulse Ox 98.3 F 89 20 124/68 95 11/20/17 07:10 11/20/17 07:10 11/20/17 07:10 11/20/17 10:34 11/20/17 07:10 Intake and Output: 11/20/17 11/20/17 06:59 18:59 Intake Total 280 Output Total 550 Balance -270 - Medications Medications: Current Medications Albuterol/Ipratropium (Duoneb 3 Mg/0.5 Mg (3 Ml) Ud) 3 ml INH RQ6 [facility] Last Admin: 11/20/17 07:21 Dose: 3 ml Bumetanide (Bumex) 1 mg PO DAILY [facility] Last Admin: 11/20/17 10:34 Dose: 1 mg Duloxetine HCl (Cymbalta) 30 mg PO DAILY [facility] Last Admin: 11/20/17 10:36 Dose: 30 mg Ferrous Sulfate (Feosol) 325 mg PO DAILY [facility] Last Admin: 11/20/17 10:34 Dose: 325 mg Furosemide (Lasix) 40 mg PO DAILY [facility] Last Admin: 11/20/17 10:34 Dose: 40 mg Gabapentin (Neurontin) 300 mg PO BID [facility] Last Admin: 11/20/17 10:34 Dose: 300 mg Hydromorphone HCl (Dilaudid) 1 mg IVP Q8 PRN PRN Reason: Pain, moderate (4-7) Last Admin: 11/20/17 10:28 Dose: 1 mg Aztreonam 1 gm/ Sodium (Chloride) 100 mls @ 100 mls/hr IVPB Q12H [facility] Last Admin: 11/20/17 08:51 Dose: 100 mls/hr Vancomycin HCl (Vancocin 750mg/D5w 150 Ml) 150 mls @ 150 mls/hr IVPB Q12H [facility] Last Admin: 11/17/17 10:57 Dose: Not Given Insulin Aspart (Novolog) 0 unit SC ACHS [facility] PRN Reason: Protocol Last Admin: 11/20/17 08:05 Dose: 8 unit Insulin Glargine (Lantus) 20 unit SC HS [facility] Last Admin: 11/19/17 22:49 Dose: 20 units Lactulose (Enulose) 20 gm PO BID [facility] Last Admin: 11/20/17 10:34 Dose: 20 gm Magnesium Oxide (Mag-Ox) 400 mg PO BID [facility] Last Admin: 11/20/17 10:34 Dose: 400 mg Pantoprazole Sodium (Protonix Ec Tab) 40 mg PO Q12H [facility] Last Admin: 11/20/17 10:34 Dose: 40 mg Propranolol HCl (Inderal) 10 mg PO BID [facility] Last Admin: 11/20/17 10:34 Dose: 10 mg Spironolactone (Aldactone) 50 mg PO DAILY [facility] Last Admin: 11/20/17 10:32 Dose: 50 mg Vitamin A (Vitamin A & D Oint Ud Foilpak) 1 ea TOP Q4 [facility] Last Admin: 11/20/17 08:05 Dose: 1 ea - Labs Labs: 11/18/17 04:49 11/18/17 04:49 PT 22.5 SECONDS (9.7-12.2) H 11/17/17 06:38 INR 2.0 11/17/17 06:38 APTT 40 SECONDS (21-34) H 11/17/17 06:38 - Constitutional Appears: Other (Lethargic, chronically ill) - Eye Exam Eye Exam: Scleral icterus - Neck Exam Additional comments: Central IV line - Respiratory Exam Respiratory Exam: NORMAL BREATHING PATTERN - Cardiovascular Exam Cardiovascular Exam: REGULAR RHYTHM - GI/Abdominal Exam GI & Abdominal Exam: Distended, Soft. absent: Tenderness, Mass, Rebound - Extremities Exam Extremities Exam: Pedal Edema - Neurological Exam Additional comments: Lethargic but arousable - Psychiatric Exam Psychiatric exam: Flat Affect - Skin Additional comments: Jaundiced Assessment and Plan (1) Closed displaced intertrochanteric fracture of right femur Status: Acute (2) Anemia Status: Acute (3) Cirrhosis Status: Acute (4) Coagulopathy Status: Acute (5) Hepatic encephalopathy Status: Acute - Assessment and Plan (Free Text) Assessment: Cirrhosis acutely decompensated Check labwork Supportive care
[2017-11-20 11:31] LABS: BASO % 0.5 % (0.0-2.0); EOS # 0.1 K/uL (0.0-0.7); EOS % 3.6 % (0.0-4.0); HEMOGLOBIN 8.1 g/dL (11.0-16.0); LYMPH # 0.4 K/uL (1.0-4.3); LYMPH % 11.2 % (20.0-40.0); MEAN CORPUSCULAR HEMOGLOBIN 32.6 pg (27.0-31.0); MEAN CORPUSCULAR HGB CONC 33.7 g/dL (33.0-37.0); MEAN PLATELET VOLUME 9.6 fL (7.2-11.7); MONO # 0.3 K/uL (0.0-0.8); MONO % 8.2 % (0.0-10.0); NEUT # 2.7 K/uL (1.8-7.0); NEUT % 76.5 % (50.0-75.0); NRBC % 0.2 % (0.0-2.0); RBC 2.48 Mil/uL (3.80-5.20); RED CELL DISTRIBUTION WIDTH 22.2 % (11.5-14.5); WHITE BLOOD COUNT 3.5 K/uL (4.8-10.8)
[2017-11-20 11:32] LABS: MEAN CELL VOLUME 96.6 fL (81.0-99.0)
[2017-11-20 12:03] LABS: BLOOD UREA NITROGEN 26 mg/dL (7-17); CALCIUM 8.2 mg/dl (8.6-10.4); GFR AFRICAN-AMERICAN > 60; GFR NON-AFRICAN AMERICAN > 60
--- NOTE | 2017-11-20 12:30 | CP.PCM.PN ---
Subjective - Date & Time of Evaluation Date of Evaluation: 11/20/17 Time of Evaluation: 12:27 - Subjective Subjective: The patient seems comfortable, still a little confused and lethargic, but awakens easily. Hgb remains stable and no active bleeding reported by the staff Objective - Vital Signs/Intake and Output Vital Signs (last 24 hours): Temp Pulse Resp BP Pulse Ox 98.3 F 89 20 124/68 95 11/20/17 07:10 11/20/17 07:10 11/20/17 07:10 11/20/17 10:34 11/20/17 07:10 Intake and Output: 11/20/17 11/20/17 06:59 18:59 Intake Total 280 Output Total 550 Balance -270 - Medications Medications: Current Medications Albuterol/Ipratropium (Duoneb 3 Mg/0.5 Mg (3 Ml) Ud) 3 ml INH RQ6 [facility] Last Admin: 11/20/17 07:21 Dose: 3 ml Bumetanide (Bumex) 1 mg PO DAILY [facility] Last Admin: 11/20/17 10:34 Dose: 1 mg Duloxetine HCl (Cymbalta) 30 mg PO DAILY [facility] Last Admin: 11/20/17 10:36 Dose: 30 mg Ferrous Sulfate (Feosol) 325 mg PO DAILY [facility] Last Admin: 11/20/17 10:34 Dose: 325 mg Furosemide (Lasix) 40 mg PO DAILY [facility] Last Admin: 11/20/17 10:34 Dose: 40 mg Gabapentin (Neurontin) 300 mg PO BID [facility] Last Admin: 11/20/17 10:34 Dose: 300 mg Hydromorphone HCl (Dilaudid) 1 mg IVP Q8 PRN PRN Reason: Pain, moderate (4-7) Last Admin: 11/20/17 10:28 Dose: 1 mg Aztreonam 1 gm/ Sodium (Chloride) 100 mls @ 100 mls/hr IVPB Q12H [facility] Last Admin: 11/20/17 08:51 Dose: 100 mls/hr Vancomycin HCl (Vancocin 750mg/D5w 150 Ml) 150 mls @ 150 mls/hr IVPB Q12H [facility] Last Admin: 11/17/17 10:57 Dose: Not Given Insulin Aspart (Novolog) 0 unit SC ACHS [facility] PRN Reason: Protocol Last Admin: 11/20/17 11:44 Dose: 8 unit Insulin Glargine (Lantus) 20 unit SC HS [facility] Last Admin: 11/19/17 22:49 Dose: 20 units Lactulose (Enulose) 20 gm PO BID [facility] Last Admin: 11/20/17 10:34 Dose: 20 gm Magnesium Oxide (Mag-Ox) 400 mg PO BID [facility] Last Admin: 11/20/17 10:34 Dose: 400 mg Pantoprazole Sodium (Protonix Ec Tab) 40 mg PO Q12H [facility] Last Admin: 11/20/17 10:34 Dose: 40 mg Propranolol HCl (Inderal) 10 mg PO BID [facility] Last Admin: 11/20/17 10:34 Dose: 10 mg Spironolactone (Aldactone) 50 mg PO DAILY [facility] Last Admin: 11/20/17 10:32 Dose: 50 mg Vitamin A (Vitamin A & D Oint Ud Foilpak) 1 ea TOP Q4 [facility] Last Admin: 11/20/17 08:05 Dose: 1 ea - Labs Labs: 11/20/17 11:23 11/20/17 11:23 PT 22.5 SECONDS (9.7-12.2) H 11/17/17 06:38 INR 2.0 11/17/17 06:38 APTT 40 SECONDS (21-34) H 11/17/17 06:38 Assessment and Plan (1) Pancytopenia Assessment & Plan: 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 Avoid paltelet and FFP transfusions unless active bleeding seen, PRN PRBC transfusion to keep the Hgb around 8. Status: Acute
--- NOTE | 2017-11-20 12:46 | CP.PCM.PN ---
Subjective - Date & Time of Evaluation Date of Evaluation: 11/20/17 Time of Evaluation: 12:45 - Subjective Subjective: Patient seen today , sleepy abusable, alert, oriented to person an d place , denies any chest pain, sob, abdominal pain c/o r hip pain relieved with pain medication a febrile Objective - Vital Signs/Intake and Output Vital Signs (last 24 hours): Temp Pulse Resp BP Pulse Ox 98.3 F 89 20 124/68 95 11/20/17 07:10 11/20/17 07:10 11/20/17 07:10 11/20/17 10:34 11/20/17 07:10 Intake and Output: 11/20/17 11/20/17 06:59 18:59 Intake Total 280 Output Total 550 Balance -270 - Medications Medications: Current Medications Albuterol/Ipratropium (Duoneb 3 Mg/0.5 Mg (3 Ml) Ud) 3 ml INH RQ6 [facility] Last Admin: 11/20/17 07:21 Dose: 3 ml Bumetanide (Bumex) 1 mg PO DAILY [facility] Last Admin: 11/20/17 10:34 Dose: 1 mg Duloxetine HCl (Cymbalta) 30 mg PO DAILY [facility] Last Admin: 11/20/17 10:36 Dose: 30 mg Ferrous Sulfate (Feosol) 325 mg PO DAILY [facility] Last Admin: 11/20/17 10:34 Dose: 325 mg Furosemide (Lasix) 40 mg PO DAILY [facility] Last Admin: 11/20/17 10:34 Dose: 40 mg Gabapentin (Neurontin) 300 mg PO BID [facility] Last Admin: 11/20/17 10:34 Dose: 300 mg Hydromorphone HCl (Dilaudid) 1 mg IVP Q8 PRN PRN Reason: Pain, moderate (4-7) Last Admin: 11/20/17 10:28 Dose: 1 mg Aztreonam 1 gm/ Sodium (Chloride) 100 mls @ 100 mls/hr IVPB Q12H [facility] Last Admin: 11/20/17 08:51 Dose: 100 mls/hr Vancomycin HCl (Vancocin 750mg/D5w 150 Ml) 150 mls @ 150 mls/hr IVPB Q12H [facility] Last Admin: 11/17/17 10:57 Dose: Not Given Insulin Aspart (Novolog) 0 unit SC ACHS [facility] PRN Reason: Protocol Last Admin: 11/20/17 11:44 Dose: 8 unit Insulin Glargine (Lantus) 20 unit SC HS [facility] Last Admin: 11/19/17 22:49 Dose: 20 units Lactulose (Enulose) 20 gm PO BID [facility] Last Admin: 11/20/17 10:34 Dose: 20 gm Magnesium Oxide (Mag-Ox) 400 mg PO BID [facility] Last Admin: 11/20/17 10:34 Dose: 400 mg Pantoprazole Sodium (Protonix Ec Tab) 40 mg PO Q12H [facility] Last Admin: 11/20/17 10:34 Dose: 40 mg Propranolol HCl (Inderal) 10 mg PO BID [facility] Last Admin: 11/20/17 10:34 Dose: 10 mg Spironolactone (Aldactone) 50 mg PO DAILY [facility] Last Admin: 11/20/17 10:32 Dose: 50 mg Vitamin A (Vitamin A & D Oint Ud Foilpak) 1 ea TOP Q4 [facility] Last Admin: 11/20/17 08:05 Dose: 1 ea - Labs Labs: 11/20/17 11:23 11/20/17 11:23 PT 22.5 SECONDS (9.7-12.2) H 11/17/17 06:38 INR 2.0 11/17/17 06:38 APTT 40 SECONDS (21-34) H 11/17/17 06:38 - Constitutional Appears: No Acute Distress - Respiratory Exam Respiratory Exam: Decreased Breath Sounds, NORMAL BREATHING PATTERN - Cardiovascular Exam Cardiovascular Exam: REGULAR RHYTHM, +S1, +S2 - Extremities Exam Extremities Exam: Joint Swelling (both upper and le swollen ) - Neurological Exam Neurological Exam: Alert, Awake Assessment and Plan - Assessment and Plan (Free Text) Assessment: A/P 72 yr ol female with PMHX of Hepatitis C with cirrhosis , hypertension, pancytopenia, history of multiple GI bleeds, and diabetes, admitted s/p fall at home found to have a displaced, comminuted intertrochan fx and s/p ORIF with pinning POD #7 hgb repeat today - 8.1 urine culture- + enterococus facialis on 11/14 and on azactum will change you and repeat u/a and C&s D/W Dr. Pathak, recommends to observe hgb 1 more day and stable above 8 ( her hx of bleed and low plt) can be discharged to [facility] and monitor daily cbc will repeat labs in am
[2017-11-20 15:41] LABS: SQUAMOUS EPITHIAL 27 /hpf (0-5); URINE BACTERIA MOD (<OCC); URINE BILIRUBIN NEGATIVE (NEGATIVE); URINE BLOOD 1+ (NEGATIVE); URINE CLARITY Hazy (Clear); URINE COLOR Yellow (YELLOW); URINE GLUCOSE (UA) 1+ mg/dL (Normal); URINE LEUKOCYTE ESTERASE 1+ Leu/uL (Negative); URINE NITRATE NEGATIVE (NEGATIVE); URINE PROTEIN NEGATIVE (NEGATIVE); URINE UROBILINOGEN NORMAL mg/dL (0.2-1.0)
--- NOTE | 2017-11-20 16:56 | CP.PCM.PN ---
Subjective - Date & Time of Evaluation Date of Evaluation: 11/20/17 Time of Evaluation: 07:00 - Subjective Subjective: sleepy abusable, alert, oriented to person an d place , denies any chest pain , sob, abdominal pain c/o r hip pain relieved with pain medication Objective - Vital Signs/Intake and Output Vital Signs (last 24 hours): Temp Pulse Resp BP Pulse Ox 97.9 F 87 18 152/66 H 97 11/20/17 15:14 11/20/17 15:14 11/20/17 15:14 11/20/17 15:14 11/20/17 15:14 Intake and Output: 11/20/17 11/20/17 06:59 18:59 Intake Total 280 Output Total 550 350 Balance -270 -350 - Medications Medications: Current Medications Bumetanide (Bumex) 1 mg PO DAILY [facility] Last Admin: 11/20/17 10:34 Dose: 1 mg Duloxetine HCl (Cymbalta) 30 mg PO DAILY [facility] Last Admin: 11/20/17 10:36 Dose: 30 mg Ferrous Sulfate (Feosol) 325 mg PO DAILY [facility] Last Admin: 11/20/17 10:34 Dose: 325 mg Furosemide (Lasix) 40 mg PO DAILY [facility] Last Admin: 11/20/17 10:34 Dose: 40 mg Gabapentin (Neurontin) 100 mg PO BID [facility] Hydromorphone HCl (Dilaudid) 1 mg IVP Q8 PRN PRN Reason: Pain, moderate (4-7) Last Admin: 11/20/17 10:28 Dose: 1 mg Aztreonam 1 gm/ Sodium (Chloride) 100 mls @ 100 mls/hr IVPB Q12H [facility] Last Admin: 11/20/17 08:51 Dose: 100 mls/hr Vancomycin HCl (Vancocin 750mg/D5w 150 Ml) 150 mls @ 150 mls/hr IVPB Q12H [facility] Last Admin: 11/17/17 10:57 Dose: Not Given Insulin Aspart (Novolog) 0 unit SC ACHS [facility] PRN Reason: Protocol Last Admin: 11/20/17 11:44 Dose: 8 unit Insulin Glargine (Lantus) 20 unit SC HS [facility] Last Admin: 11/19/17 22:49 Dose: 20 units Lactulose (Enulose) 20 gm PO BID [facility] Last Admin: 11/20/17 10:34 Dose: 20 gm Magnesium Oxide (Mag-Ox) 400 mg PO BID [facility] Last Admin: 11/20/17 10:34 Dose: 400 mg Pantoprazole Sodium (Protonix Ec Tab) 40 mg PO Q12H [facility] Last Admin: 11/20/17 10:34 Dose: 40 mg Propranolol HCl (Inderal) 10 mg PO BID [facility] Last Admin: 11/20/17 10:34 Dose: 10 mg Spironolactone (Aldactone) 50 mg PO DAILY [facility] Last Admin: 11/20/17 10:32 Dose: 50 mg Vitamin A (Vitamin A & D Oint Ud Foilpak) 1 ea TOP Q4 [facility] Last Admin: 11/20/17 12:55 Dose: 1 ea - Labs Labs: 11/20/17 11:23 11/20/17 11:23 PT 22.5 SECONDS (9.7-12.2) H 11/17/17 06:38 INR 2.0 11/17/17 06:38 APTT 40 SECONDS (21-34) H 11/17/17 06:38 - Constitutional Appears: Non-toxic, Chronically Ill - Head Exam Head Exam: NORMOCEPHALIC - Eye Exam Eye Exam: PERRL. absent: Scleral icterus - ENT Exam ENT Exam: Mucous Membranes Dry - Neck Exam Neck Exam: absent: Lymphadenopathy - Respiratory Exam Respiratory Exam: Decreased Breath Sounds - Cardiovascular Exam Cardiovascular Exam: REGULAR RHYTHM - GI/Abdominal Exam GI & Abdominal Exam: Distended - Rectal Exam Rectal Exam: Deferred - Exam Exam: NORMAL INSPECTION - Extremities Exam Extremities Exam: absent: Pedal Edema - Back Exam Back Exam: absent: CVA tenderness (L), CVA tenderness (R) Assessment and Plan (1) Closed displaced intertrochanteric fracture of right femur Status: Acute (2) Anemia Status: Acute (3) Cirrhosis Status: Acute (4) Coagulopathy Status: Acute (5) GI bleed Status: Acute (6) HCV (hepatitis C virus) Status: Acute (7) HTN (hypertension) Status: Acute (8) Hepatic encephalopathy Status: Acute
[2017-11-20] MEDS: (Lantus) Insulin Glargine, Recombinant SC SCH (22:03)
[2017-11-21] MEDS: Vitamins A & D Oint UD Foilpak TOP SCH ×5 (00:28→16:32)
[2017-11-21 07:33] LABS: BASO % 0.5 % (0.0-2.0); EOS # 0.1 K/uL (0.0-0.7); EOS % 2.7 % (0.0-4.0); HEMOGLOBIN 8.2 g/dL (11.0-16.0); LYMPH # 0.6 K/uL (1.0-4.3); MEAN CORPUSCULAR HEMOGLOBIN 33.1 pg (27.0-31.0); MEAN CORPUSCULAR HGB CONC 33.8 g/dL (33.0-37.0); MEAN PLATELET VOLUME 9.3 fL (7.2-11.7); MONO # 0.3 K/uL (0.0-0.8); NEUT % 78.8 % (50.0-75.0); NRBC % 0.2 % (0.0-2.0); RBC 2.48 Mil/uL (3.80-5.20); RED CELL DISTRIBUTION WIDTH 24.7 % (11.5-14.5)
[2017-11-21 07:38] LABS: INR 1.6; PROTHROMBIN TIME 18.7 SECONDS (9.7-12.2)
[2017-11-21] MEDS: (Novolog) Insulin Aspart, Recombinant 100 u/ml 10 ml vial SC SCH ×3 (08:00→18:32)
[2017-11-21] MEDS: Aztreonam 1 GM in Sodium Chloride 0.9% 100 ML IVPB SCH (08:04)
[2017-11-21 08:22] LABS: ALBUMIN 2.4 g/dL (3.5-5.0); ALT/SGPT 25 U/L (9-52); AST/SGOT 30 U/L (14-36); BLOOD UREA NITROGEN 27 mg/dL (7-17); CALCIUM 8.5 mg/dl (8.6-10.4); GFR AFRICAN-AMERICAN > 60; GFR NON-AFRICAN AMERICAN > 60
[2017-11-21 08:27] LABS: BILIRUBIN,DIRECT 1.7 mg/dL (0.0-0.4)
[2017-11-21] MEDS: Magnesium Oxide 400 mg Tab UD PO SCH ×2 (10:00→18:32)
--- NOTE | 2017-11-21 10:43 | CP.PCM.PN ---
Subjective - Date & Time of Evaluation Date of Evaluation: 11/21/17 Time of Evaluation: 10:41 - Subjective Subjective: F/U cirrhosis Awake Denies RB, melena, abdom pain, fever, chills, SZ, hemoptysis,, hematuria Objective - Vital Signs/Intake and Output Vital Signs (last 24 hours): Temp Pulse Resp BP Pulse Ox 97.9 F 109 H 20 126/68 99 11/21/17 08:49 11/21/17 08:49 11/21/17 08:49 11/21/17 08:49 11/21/17 08:49 Intake and Output: 11/21/17 11/21/17 06:59 18:59 Intake Total 420 Output Total 925 Balance -505 - Medications Medications: Current Medications Bumetanide (Bumex) 1 mg PO DAILY [facility] Last Admin: 11/20/17 10:34 Dose: 1 mg Duloxetine HCl (Cymbalta) 30 mg PO DAILY [facility] Last Admin: 11/20/17 10:36 Dose: 30 mg Ferrous Sulfate (Feosol) 325 mg PO DAILY [facility] Last Admin: 11/20/17 10:34 Dose: 325 mg Furosemide (Lasix) 40 mg PO DAILY [facility] Last Admin: 11/20/17 10:34 Dose: 40 mg Gabapentin (Neurontin) 100 mg PO BID [facility] Last Admin: 11/20/17 18:20 Dose: 100 mg Hydromorphone HCl (Dilaudid) 0.5 mg IVP Q8 PRN PRN Reason: Pain, moderate (4-7) Aztreonam 1 gm/ Sodium (Chloride) 100 mls @ 100 mls/hr IVPB Q12H [facility] Last Admin: 11/21/17 08:04 Dose: 100 mls/hr Vancomycin HCl (Vancocin 750mg/D5w 150 Ml) 150 mls @ 150 mls/hr IVPB Q12H [facility] Last Admin: 11/17/17 10:57 Dose: Not Given Insulin Aspart (Novolog) 0 unit SC ACHS [facility] PRN Reason: Protocol Last Admin: 11/21/17 08:00 Dose: 4 unit Insulin Glargine (Lantus) 20 unit SC HS [facility] Last Admin: 11/20/17 22:03 Dose: 20 units Lactulose (Enulose) 20 gm PO BID [facility] Last Admin: 11/20/17 18:20 Dose: 20 gm Magnesium Oxide (Mag-Ox) 400 mg PO BID [facility] Last Admin: 11/20/17 18:20 Dose: 400 mg Pantoprazole Sodium (Protonix Ec Tab) 40 mg PO Q12H [facility] Last Admin: 11/20/17 22:02 Dose: 40 mg Propranolol HCl (Inderal) 10 mg PO BID [facility] Last Admin: 11/20/17 18:20 Dose: 10 mg Spironolactone (Aldactone) 50 mg PO DAILY [facility] Last Admin: 11/20/17 10:32 Dose: 50 mg Vitamin A (Vitamin A & D Oint Ud Foilpak) 1 ea TOP Q4 [facility] Last Admin: 11/21/17 03:03 Dose: 1 ea - Labs Labs: 11/21/17 07:17 11/21/17 07:17 PT 18.7 SECONDS (9.7-12.2) H 11/21/17 07:17 INR 1.6 11/21/17 07:17 APTT 40 SECONDS (21-34) H 11/17/17 06:38 - Constitutional Appears: Non-toxic - Respiratory Exam Respiratory Exam: Clear to Ausculation Bilateral - Cardiovascular Exam Cardiovascular Exam: RRR - GI/Abdominal Exam GI & Abdominal Exam: Soft, Normal Bowel Sounds. absent: Tenderness - Extremities Exam Extremities Exam: Pedal Edema - Neurological Exam Neurological Exam: Alert, Awake Assessment and Plan (1) Closed traumatic dislocation of hip Status: Acute (2) Cirrhosis Status: Acute (3) Coagulopathy Status: Acute (4) HCV (hepatitis C virus) Status: Acute (5) HTN (hypertension) Status: Acute (6) Hepatic encephalopathy Status: Acute (7) Pancytopenia Assessment & Plan: Hb 8.2. REC: F/U labs, check NH3, lactulose, Cedric, diuretics. Status: Acute
[2017-11-21] MEDS: Pantoprazole 40 mg EC Tab PO SCH (11:04)
--- NOTE | 2017-11-21 11:42 | CP.PCM.PN ---
Subjective - Date & Time of Evaluation Date of Evaluation: 11/21/17 Time of Evaluation: 11:40 - Subjective Subjective: Patient complains of hip pain during exam. She is more lethargic today. Objective - Vital Signs/Intake and Output Vital Signs (last 24 hours): Temp Pulse Resp BP Pulse Ox 98.1 F 86 18 135/78 4 L 11/21/17 11:30 11/21/17 11:30 11/21/17 11:30 11/21/17 11:30 11/21/17 11:30 Intake and Output: 11/21/17 11/21/17 06:59 18:59 Intake Total 420 Output Total 925 Balance -505 - Medications Medications: Current Medications Bumetanide (Bumex) 1 mg PO DAILY [facility] Last Admin: 11/21/17 11:05 Dose: 1 mg Duloxetine HCl (Cymbalta) 30 mg PO DAILY [facility] Last Admin: 11/21/17 11:05 Dose: 30 mg Ferrous Sulfate (Feosol) 325 mg PO DAILY [facility] Last Admin: 11/21/17 11:04 Dose: 325 mg Furosemide (Lasix) 40 mg PO DAILY [facility] Last Admin: 11/21/17 11:11 Dose: 40 mg Gabapentin (Neurontin) 100 mg PO BID [facility] Last Admin: 11/21/17 11:16 Dose: 100 mg Hydromorphone HCl (Dilaudid) 0.5 mg IVP Q8 PRN PRN Reason: Pain, moderate (4-7) Aztreonam 1 gm/ Sodium (Chloride) 100 mls @ 100 mls/hr IVPB Q12H [facility] Last Admin: 11/21/17 08:04 Dose: 100 mls/hr Vancomycin HCl (Vancocin 750mg/D5w 150 Ml) 150 mls @ 150 mls/hr IVPB Q12H [facility] Last Admin: 11/17/17 10:57 Dose: Not Given Insulin Aspart (Novolog) 0 unit SC ACHS [facility] PRN Reason: Protocol Last Admin: 11/21/17 08:00 Dose: 4 unit Insulin Glargine (Lantus) 20 unit SC HS [facility] Last Admin: 11/20/17 22:03 Dose: 20 units Lactulose (Enulose) 20 gm PO BID [facility] Last Admin: 11/21/17 11:30 Dose: Not Given Lactulose (Enulose) 200 gm DE ONCE ONE Stop: 11/21/17 12:01 Last Admin: 11/21/17 11:30 Dose: 200 gm Magnesium Oxide (Mag-Ox) 400 mg PO BID [facility] Last Admin: 11/21/17 10:00 Dose: 400 mg Pantoprazole Sodium (Protonix Ec Tab) 40 mg PO Q12H [facility] Last Admin: 11/21/17 11:04 Dose: 40 mg Propranolol HCl (Inderal) 10 mg PO BID [facility] Last Admin: 11/21/17 11:05 Dose: 10 mg Spironolactone (Aldactone) 50 mg PO DAILY [facility] Last Admin: 11/21/17 11:05 Dose: 50 mg Vitamin A (Vitamin A & D Oint Ud Foilpak) 1 ea TOP Q4 [facility] Last Admin: 11/21/17 11:19 Dose: 1 ea - Labs Labs: 11/21/17 07:17 11/21/17 07:17 PT 18.7 SECONDS (9.7-12.2) H 11/21/17 07:17 INR 1.6 11/21/17 07:17 APTT 40 SECONDS (21-34) H 11/17/17 06:38 - Extremities Exam Additional comments: right hip: dressing changed. Incision intact, scant sang drainage on dressing inferiorly, but no active drainage, and improved. prox incision drya nd intact Assessment and Plan (1) Closed displaced intertrochanteric fracture of right femur Assessment & Plan: POD#8 s/p right hip IM nailing -orthopedically stable -PT/OT VTE proph venodynes f/u 2 weeks in office upon d/c d/w Dr. lFynn, agrees with above Status: Acute
--- NOTE | 2017-11-21 12:14 | CP.PCM.PN ---
Subjective - Date & Time of Evaluation Date of Evaluation: 11/21/17 Time of Evaluation: 11:25 - Subjective Subjective: Patient seen today lethargic compared to yesterday , arousable, oriented to person , place , labd reviewed today- hgb stable - 8.2 T. librado- trending up - 0.9-1.7 ammonia up from 20- 71 Objective - Vital Signs/Intake and Output Vital Signs (last 24 hours): Temp Pulse Resp BP Pulse Ox 98.1 F 86 18 135/78 4 L 11/21/17 11:30 11/21/17 11:30 11/21/17 11:30 11/21/17 11:30 11/21/17 11:30 Intake and Output: 11/21/17 11/21/17 06:59 18:59 Intake Total 420 Output Total 925 Balance -505 - Medications Medications: Current Medications Bumetanide (Bumex) [address] [facility] Last Admin: 11/21/17 11:05 Dose: 1 mg Duloxetine HCl (Cymbalta) [address] [facility] Last Admin: 11/21/17 11:05 Dose: 30 mg Ferrous Sulfate (Feosol) [address] [facility] Last Admin: 11/21/17 11:04 Dose: 325 mg Furosemide (Lasix) [address] [facility] Last Admin: 11/21/17 11:11 Dose: 40 mg Gabapentin (Neurontin) [address] [facility] Last Admin: 11/21/17 11:16 Dose: 100 mg Hydromorphone HCl (Dilaudid) 0.5 mg IVP Q8 PRN PRN Reason: Pain, moderate (4-7) Aztreonam 1 gm/ Sodium (Chloride) 100 mls @ 100 mls/hr IVPB Q12H [facility] Last Admin: 11/21/17 08:04 Dose: 100 mls/hr Vancomycin HCl (Vancocin 750mg/D5w 150 Ml) 150 mls @ 150 mls/hr IVPB Q12H [facility] Last Admin: 11/17/17 10:57 Dose: Not Given Insulin Aspart (Novolog) [address] [facility] PRN Reason: Protocol Last Admin: 11/21/17 08:00 Dose: 4 unit Insulin Glargine (Lantus) [address] [facility] Last Admin: 11/20/17 22:03 Dose: 20 units Lactulose (Enulose) [address] [facility] Last Admin: 11/21/17 11:30 Dose: Not Given Magnesium Oxide (Mag-Ox) [address] [facility] Last Admin: 11/21/17 10:00 Dose: 400 mg Pantoprazole Sodium (Protonix Ec Tab) [address] [facility] Last Admin: 11/21/17 11:04 Dose: 40 mg Propranolol HCl (Inderal) [address] [facility] Last Admin: 11/21/17 11:05 Dose: 10 mg Spironolactone (Aldactone) [address] [facility] Last Admin: 11/21/17 11:05 Dose: 50 mg Vitamin A (Vitamin A & D Oint Ud Foilpak) [address] [facility] Last Admin: 11/21/17 11:19 Dose: 1 ea - Labs Labs: 11/21/17 07:17 11/21/17 07:17 PT 18.7 SECONDS (9.7-12.2) H 11/21/17 07:17 INR 1.6 11/21/17 07:17 APTT 40 SECONDS (21-34) H 11/17/17 06:38 - Constitutional Appears: No Acute Distress, Older Than Stated Age, Confused, Chronically Ill - Eye Exam Eye Exam: Scleral icterus - Respiratory Exam Respiratory Exam: Decreased Breath Sounds, Clear to Ausculation Bilateral, NORMAL BREATHING PATTERN - Cardiovascular Exam Cardiovascular Exam: REGULAR RHYTHM, +S1, +S2 - Extremities Exam Extremities Exam: Joint Swelling (upper and lower extremities ) - Neurological Exam Neurological Exam: Awake Assessment and Plan - Assessment and Plan (Free Text) Assessment: [age] yr ol female with PMHX of Hepatitis C with cirrhosis , hypertension, pancytopenia, history of multiple GI bleeds, and diabetes, admitted s/p fall at home found to have a displaced, comminuted intertrochan fx and s/p ORIF with pinning POD #8 hgb - stable -8.2>8.1 plt- 44>33 amonia - 71, patient unable to take po lactulose and no BM as per RN will give lactulose enema and repeat ammonia in am urine culture- pending , will d/w Dr. Ruggiero for duration of antibiotics once culture and sensitivity back seen by ortho cleared for discharge from [facility] and f/u with Dr. Jensen office in 2 week Patient refereed to [facility] and accepted and family in agreement as per CM/SW D/W Dr. Gonzalez , can be discharged to [facility] and will follow the patient at LT[facility]
[2017-11-21 17:06] VITALS: BP 131/73; PULSE 85; RESP 20; TEMP 98.3; O2SAT 95
--- NOTE | 2017-11-21 19:30 | CP.PCM.PN ---
Subjective - Date & Time of Evaluation Date of Evaluation: 11/21/17 Time of Evaluation: 19:27 - Subjective Subjective: The patient is lethargic, awakens with difficulty, unable to follow commands. No active bleeding reported by nursing staff, no new bruises Objective - Vital Signs/Intake and Output Vital Signs (last 24 hours): Temp Pulse Resp BP Pulse Ox 98.3 F 85 20 131/73 95 11/21/17 15:00 11/21/17 15:00 11/21/17 15:00 11/21/17 15:00 11/21/17 15:00 - Medications Medications: Current Medications Bumetanide (Bumex) 1 mg PO DAILY [facility] Last Admin: 11/21/17 11:05 Dose: 1 mg Duloxetine HCl (Cymbalta) 30 mg PO DAILY [facility] Last Admin: 11/21/17 11:05 Dose: 30 mg Ferrous Sulfate (Feosol) 325 mg PO DAILY [facility] Last Admin: 11/21/17 11:04 Dose: 325 mg Furosemide (Lasix) 40 mg PO DAILY [facility] Last Admin: 11/21/17 11:11 Dose: 40 mg Gabapentin (Neurontin) 100 mg PO BID [facility] Last Admin: 11/21/17 11:16 Dose: 100 mg Hydromorphone HCl (Dilaudid) 0.5 mg IVP Q8 PRN PRN Reason: Pain, moderate (4-7) Last Admin: 11/21/17 16:25 Dose: 0.5 mg Aztreonam 1 gm/ Sodium (Chloride) 100 mls @ 100 mls/hr IVPB Q12H [facility] Last Admin: 11/21/17 08:04 Dose: 100 mls/hr Vancomycin HCl (Vancocin 750mg/D5w 150 Ml) 150 mls @ 150 mls/hr IVPB Q12H [facility] Last Admin: 11/17/17 10:57 Dose: Not Given Insulin Aspart (Novolog) 0 unit SC ACHS [facility] PRN Reason: Protocol Last Admin: 11/21/17 18:32 Dose: Not Given Insulin Glargine (Lantus) 20 unit SC HS [facility] Last Admin: 11/20/17 22:03 Dose: 20 units Lactulose (Enulose) 20 gm PO BID [facility] Last Admin: 11/21/17 18:32 Dose: Not Given Magnesium Oxide (Mag-Ox) 400 mg PO BID [facility] Last Admin: 11/21/17 18:32 Dose: Not Given Pantoprazole Sodium (Protonix Ec Tab) 40 mg PO Q12H [facility] Last Admin: 11/21/17 11:04 Dose: 40 mg Propranolol HCl (Inderal) 10 mg PO BID [facility] Last Admin: 11/21/17 18:32 Dose: Not Given Spironolactone (Aldactone) 50 mg PO DAILY [facility] Last Admin: 11/21/17 11:05 Dose: 50 mg Vitamin A (Vitamin A & D Oint Ud Foilpak) 1 ea TOP Q4 [facility] Last Admin: 11/21/17 16:32 Dose: 1 ea - Labs Labs: 11/21/17 07:17 11/21/17 07:17 PT 18.7 SECONDS (9.7-12.2) H 11/21/17 07:17 INR 1.6 11/21/17 07:17 APTT 40 SECONDS (21-34) H 11/17/17 06:38 Assessment and Plan (1) Pancytopenia Assessment & Plan: Pancytopenia, secondary to hypersplenism, counts stable sofar, no indication for any transfusion as of now. Attempts being made to bring ammonia levels down Status: Acute
--- NOTE | 2017-11-30 16:27 | OP ---
PROCEDURE DATE: 11/13/2017 PREOPERATIVE DIAGNOSIS: Right hip displaced intertrochanteric hip fracture. POSTOPERATIVE DIAGNOSIS: Right hip displaced intertrochanteric hip fracture. PROCEDURE: Right hip displaced intertrochanteric hip fracture closed reduction and internal fixation with intramedullary hip nail. SURGEON: Mehdi Flynn MD. MANAGER BEHAVIORAL: Venu Arteaga MD. JUSTIFICATION FOR MANAGER BEHAVIORAL: Venu Arteaga MD is a skilled surgical orderly who is a board certified general surgeon whose presence was an absolute necessity for successful completion of the procedure as he provided skilled surgical assistance with positioning of the patient, positioning of extremity, management of surgical field, securing to fracture table and safety measures, fracture reduction, maintenance of fracture reduction, preparation of proximal femur for placement of hip nail, placement of hip nail, placement of helical blade, placement of interlocking screw, wounds closure. Venu Arteaga MD was present for the entire case, was an absolute necessity for successful completion of the procedure. TYPE OF ANESTHESIA: General endotracheal anesthesia. ESTIMATED BLOOD LOSS: 200 mL. BLOOD PRODUCTS GIVEN: 1 unit of packed red blood cells, 2 units of FFP, 2 units of platelets immediately preop. DRAINS: None. SPECIMENS: None. COMPLICATIONS: None. IMPLANTS: Synthes short TFNA 10 mm diameter, 85 mm helical blade, 1 distal interlocking screw. DISPOSITION: The patient was extubated and transferred to PACU in stable condition having tolerated the procedure well. INDICATIONS FOR SURGERY: The patient is a 72-year-old female with multiple past medical history including hepatic encephalopathy, hypertension, liver cirrhosis with history of hepatitis, splenomegaly, chronic thrombocytopenia, history of multiple gastrointestinal bleed, pancytopenia, diabetes, who presented to the emergency room at [facility] on the evening of 11/08/2017 with right hip pain and inability to weight bear on right lower extremity since an injury at home on the same day. The patient stated on 11/08/2017, she went to open the door at her home and lost her balance resulting in her falling to the floor from standing landing on her right hip. She was unable to get up and could not tolerate any range of motion to the right lower extremity, unable to bear any weight on the right lower extremity. She was brought to the emergency room at [facility] by EMS. After review of imaging and evaluation of the patient by ER staff, she was diagnosed with a right hip displaced intertrochanteric hip fracture. The patient is an active community ambulator at baseline, independently functioning, lives at home with assistance. The patient was admitted to the medical service under Dr. Jean Marie Coronado for definitive treatment and an orthopedic consultation was placed. I evaluated the patient as an inpatient. REVIEW OF IMAGING: Right hip x-rays taken in the ER on 11/08/2017 revealed and confirmed a displaced intertrochanteric hip fracture with a small extension beyond the level of the lesser trochanter. Right knee x-rays taken in the ER were only limited to 1 view of poor quality. Right hip and pelvis CT done on 11/09/2017 also confirmed displaced intertrochanteric right hip fracture with a small extension that was less than 1 cm below the level of the lesser trochanter. There was also a nondisplaced right-sided inferior pubic ramus fracture. After confirming the history and having a long discussion with the family, we started to plan for surgical intervention. She was indicated for a right hip closed with open reduction and internal fixation with intramedullary hip nail. The patient has multiple medical problems and required evaluation by multiple lemus including hematology, GI, Cardiology to determine medical optimization. Her initial blood levels were not amenable to any surgical intervention or anesthesia on initial presentation with an INR of 1.6, glucose of 467 amongst others. Finally, she was stabilized and was deemed stable enough and optimized for surgery and she underwent surgery on 11/13/2017 successfully at [facility]. She was indicated for a closed versus open reduction and internal fixation with intramedullary hip nail. The risks, benefits and alternatives of the procedure were discussed at length with the patient and her family who is her son who is always present, the risks included not limited to infection, neurovascular damage, malunion, nonunion, failure of hardware, need for further surgery including removal of hardware and hip replacement surgery, development of blood clots including DVT and PE, development of chronic pain and disability, inability to return to preinjury level of activity and ambulation and independence, anesthesia reactions including . After answering all of their questions, they stated that they understood the risks and wished to proceed with surgery. PROCEDURE IN DETAIL: The patient was identified in the preoperative holding area and the right hip was marked for surgery. Once again as described above, the risks, benefits and alternatives of the procedure were discussed at length with the patient and her family and informed consent was obtained. After a brief discussion with the Anesthesia staff, perioperative IV antibiotics in the form of 1 g vancomycin was administered and the patient was taken to the operating room and placed on the well-padded operating room table with all bony prominences and superficial neurovascular structures well padded. She has a penicillin allergy. An initial time-out was done with the surgeon, Anesthesia staff, OR staff and all in agreement with the patient, procedure being done and the extremity being operated on. She was placed under general anesthesia without any difficulty or complication. She was then transferred to the fracture top table with all bony prominences and the superficial neurovascular structures well padded. The right lower extremity was placed in a well-padded fracture boot in the traction boot and secured to the bed. The perineal post was then positioned. The left lower extremity was placed in a well-padded well leg kelsey. The right upper extremity was well padded around the ulnar nerve and secured across the chest. The left upper extremity was secured to the armboard that was well padded. A final time-out was done with the surgeon, Anesthesia staff and OR staff and all in agreement with the patient, procedure being done and the extremity being operated on. With the help of biplanar fluoroscopic imaging, an attempt at a closed reduction was carried out with adequate traction and internal rotation and multiple closed reduction attempts, we were able to obtain an anatomic alignment of the displaced intertrochanteric hip fracture with latter-day of the medial calcar. At which point in time after the final time-out had been done and the closed reduction was carried out successfully, the right hip was prepped and draped in a standard sterile fashion and placement of the intramedullary internal fixation was carried out. With the help of biplanar fluoroscopic imaging confirming maintenance of the anatomic reduction and placement of hardware throughout the case, we were able to successfully place an internal fixation in the form of an intramedullary hip nail. The optimal entry point for the nail was identified. Percutaneous placement of the K-wire at the greater trochanteric tip. Incision was made proximally approximately 3 cm while maintaining good hemostasis and the pin was advanced through the greater trochanter down to the level of the lesser trochanter. The proximal reamer was advanced over the K-wire. A short TFNA nail from [employer] was then placed proximally into the proximal femoral shaft after the entry hole was prepared. The nail was advanced up until the guide for the helical blade was inline with the femoral head and neck. Triple sleeve was assembled and a secondary distal incision was created for access to the helical blade pre drilling and placements. With the help of biplanar fluoroscopic imaging, optimal center-center placement of the guidewire on the femoral head was successfully carried out. This led to measurement of an 85 mm helical blade, which was placed and secured center-center on the femoral head while the anatomic reduction of the intertrochanteric hip fracture was maintained. Traction was released and compression was successfully carried out and placed across the fracture. The proximal facet screw for the helical blade was secured. Attention was then turned towards the distal interlocking screw. Through the same incision for the helical blade, we were able to place the distal interlocking screw. The triple sleeve was assembled through the guide and the drill was advanced through both cortexes through the distal interlocking screw hole of the nail. Measurement was taken and an appropriately sized distal interlocking screw was placed with good bite and fixation achieved. All wounds were copiously irrigated. Deep tissue and fascia were reapproximated with #1 Vicryl suture followed by subcutaneous tissue reapproximated with 2-0 Vicryl suture followed by kobe for skin. Sterile dressings were applied and then the patient was carefully transported back to her hospital bed/stretcher where she extubated from general anesthesia and transferred to PACU in stable condition. Due to the multiple medical problems including pancytopenia, the patient received preoperatively 2 units of platelets and FFP as well as 1 unit of packed red blood cells. She will be monitored very closely by the medical staff and if needed she will be transferred to ICU for detailed care. As far as orthopedic disposition, she will be weightbearing as tolerated to the right lower extremity with no restrictions. She can work with physical therapy on ambulation, transfers and be out of bed as much as possible. She will be started on DVT prophylaxis unless medical contraindication on postoperative day #1. I will monitor her progress as an inpatient. Once she was discharged from the hospital, she will follow up in my office at [facility] within 1 week. Mehdi Flynn MD [facility] # [id number]
== END 2017-11-21 19:51 | DRG 956 ==
LOC: C.ER 20:27 → C.9E 23:26 → C.6T 11-09 00:33 → C.9I 11-14 12:12 → C.6T 11-19 18:01
PROVIDERS: ADMIT Internal Medicine Nephrology; ATTEND Internal Medicine Nephrology
PROC: 30233L1 Transfusion of Nonautologous Fresh Plasma into Peripheral Vein, Percutaneous Approach (ICD-10-PCS; 2017-11-13)
PROC: 30233K1 Transfusion of Nonautologous Frozen Plasma into Peripheral Vein, Percutaneous Approach (ICD-10-PCS; 2017-11-13)
PROC: 0QS636Z Reposition Right Upper Femur with Intramedullary Internal Fixation Device, Percutaneous Approach (ICD-10-PCS; principal; 2017-11-13 10:53)
PROC: 30233N1 Transfusion of Nonautologous Red Blood Cells into Peripheral Vein, Percutaneous Approach (ICD-10-PCS; 2017-11-15)
DX: S72.141A Displaced intertrochanteric fracture of right femur, initial encounter for closed fracture (principal); S06.5X0A Traumatic subdural hemorrhage without loss of consciousness, initial encounter; D61.818 Other pancytopenia; D68.9 Coagulation defect, unspecified; E11.40 Type 2 diabetes mellitus with diabetic neuropathy, unspecified; K76.6 Portal hypertension; R16.1 Splenomegaly, not elsewhere classified; W18.30XA Fall on same level, unspecified, initial encounter; I10 Essential (primary) hypertension; B19.20 Unspecified viral hepatitis C without hepatic coma; F32.9 Major depressive disorder, single episode, unspecified; F41.9 Anxiety disorder, unspecified; Z90.49 Acquired absence of other specified parts of digestive tract; Z87.891 Personal history of nicotine dependence; K72.90 Hepatic failure, unspecified without coma; K74.60 Unspecified cirrhosis of liver; K64.9 Unspecified hemorrhoids; Z79.4 Long term (current) use of insulin

== ENCOUNTER 2017-12-12 13:53 | Inpatient (IN) | payer MEDICARE, MEDICAID ==
[2017-12-12 13:53] VITALS: BMI 24.0
[2017-12-12 15:41] LABS: BASO % 0.9 % (0.0-2.0); EOS # 0.1 K/uL (0.0-0.7); EOS % 3.6 % (0.0-4.0); HEMOGLOBIN 8.7 g/dL (11.0-16.0); LYMPH # 0.4 K/uL (1.0-4.3); MEAN CORPUSCULAR HEMOGLOBIN 36.6 pg (27.0-31.0); MEAN CORPUSCULAR HGB CONC 34.6 g/dL (33.0-37.0); MEAN PLATELET VOLUME 8.5 fL (7.2-11.7); MONO # 0.2 K/uL (0.0-0.8); MONO % 7.5 % (0.0-10.0); NEUT # 1.7 K/uL (1.8-7.0); NRBC % 0.1 % (0.0-2.0); RBC 2.38 Mil/uL (3.80-5.20); RED CELL DISTRIBUTION WIDTH 19.5 % (11.5-14.5)
[2017-12-12 15:46] LABS: MEAN CELL VOLUME 105.7 fL (81.0-99.0); WHITE BLOOD COUNT 2.4 K/uL (4.8-10.8)
[2017-12-12 16:10] LABS: INR 1.8; PROTHROMBIN TIME 21.1 SECONDS (9.7-12.2)
[2017-12-12] MEDS ORDERED: Phytonadione 2.5 MG/0.5 TAB TAB PO STA (16:12)
[2017-12-12 16:13] LABS: ALB/GLOB RATIO 0.8 (1.0-2.1); ALBUMIN 2.7 g/dL (3.5-5.0); ALT/SGPT 23 U/L (9-52); AST/SGOT 52 U/L (14-36); BLOOD UREA NITROGEN 14 mg/dL (7-17); GFR AFRICAN-AMERICAN > 60; GFR NON-AFRICAN AMERICAN > 60; LIPASE 134 U/L (23-300)
[2017-12-12] MEDS ORDERED: Potassium Chloride 20 mEq ER Tab PO STA (16:15)
--- NOTE | 2017-12-12 16:40 | C.PDOC ---
Time Seen by Provider: 12/12/17 14:12 Chief Complaint (Nursing): GI Problem History Per: Patient, Other ([facility] records) History/Exam Limitations: clinical condition Onset/Duration Of Symptoms: Days (?) Current Symptoms Are (Timing): Still Present Number Of Bleeding Episodes: Unknown Severity: Moderate Associated Symptoms: Rectal Bleeding Modifying Factors: Other Indicated Below Additional History Per: Prior Records Past Medical History Reviewed: Historical Data, Nursing Documentation, Vital Signs Vital Signs: Last Vital Signs Temp Pulse 86 12/12/17 16:07 Resp 18 12/12/17 16:09 BP 139/59 L 12/12/17 16:07 Pulse Ox 96 12/12/17 16:09 - Medical History PMH: Anemia (with Pancytopenia), Anxiety, Arthritis, Asthma, Bronchitis, Depression, Diabetes, Diverticulitis, Fractures (right hip), Gastritis, Gall Bladder Disease, Hepatitis (C), HTN, Osteoporosis, Chronic Pain Other PMH: Liver Cirrhosis with coagulopathy. Surgical History: Appendectomy, Cholecystectomy Other Surgeries: Right hip surgery - [facility] Procedures CORONAR ARTERIOGR-2 CATH (08/02/15) INSERTION OF INFUSION DEV INTO SUP VENA CAVA, PERC APPROACH (07/15/17) INSPECTION OF LOWER INTESTINAL TRACT, ENDO (07/11/16) LEFT HEART CARDIAC CATH (08/02/15) LT HEART ANGIOCARDIOGRAM (08/02/15) OTHER ENDOSCOPY OF SM INTEST (07/09/13) REPOSITION R UP FEMUR WITH INTRAMED FIX, PERC APPROACH (11/08/17) TRANSFUSE NONAUT FRESH PLASMA IN PERIPH VEIN, PERC (11/08/17) TRANSFUSE NONAUT FROZEN PLASMA IN PERIPH VEIN, PERC (11/08/17) TRANSFUSE NONAUT RED BLOOD CELLS IN PERIPH VEIN, PERC (11/08/17) VACCINATION NEC (07/16/14) Family History: States: Unknown Family Hx - Social History Hx Tobacco Use: No Hx Alcohol Use: No Hx Substance Use: No - Immunization History Hx Tetanus Toxoid Vaccination: No (NOT SURE) Hx Influenza Vaccination: No Hx Pneumococcal Vaccination: No Review Of Systems Constitutional: Positive for: Malaise. Negative for: Fever Cardiovascular: Negative for: Chest Pain Respiratory: Negative for: Shortness of Breath Gastrointestinal: Positive for: Abdominal Pain, Hematochezia. Negative for: Vomiting Musculoskeletal: Negative for: Neck Pain Skin: Positive for: Jaundice Neurological: Negative for: Weakness, Numbness, Seizures Physical Exam - Physical Exam Appears: Chronically Ill Skin: Warm, Dry, Pale, Jaundice Head: Atraumatic, Normacephalic Eye(s): bilateral: PERRL, EOMI, Scleral Icterus Neck: Normal ROM, Supple Cardiovascular: Rhythm Regular Respiratory: Normal Breath Sounds, No Accessory Muscle Use Gastrointestinal/Abdominal: Bowel Sounds (wnl), Soft Rectal: Heme Negative (yellow stool), No Mass, Other (red blood on gauze that was placed on anus area) Extremity: Normal ROM, Pedal Edema Neurological/Psych: Normal Motor, Normal Sensation Disoriented To: Time ED Course And Treatment - Laboratory Results Result Diagrams: 12/12/17 15:35 12/12/17 15:35 Lab Interpretation: Abnormal Interpretation Of Abnormal: Pancytopenia. Coagulopathy. Hypokalemia. ECG: Interpreted By Me, Viewed By Me ECG Rhythm: Sinus Rhythm, Nonspecific Changes Interpretation Of ECG: mildly prolonged QTc Rate From EC O2 Sat by Pulse Oximetry: 96 Pulse Ox Interpretation: Normal Progress - Interventions Interventions:: Observation - Medications Administered Oral: Other (KCl, Vitamin K, Folate.) Intravenous: Other (PPI) - Data Reviewed Data Reviewed: Lab, EKG, Old records - Patient Status Patient status: Unchanged - Continuity of Care Discussed patient case with:: Patient, ED Nurse, Covering for PMD - Patient Plan Patient Plan: Admission, Telemetry Disposition Discussed With : Carmina Gonzalez (Covering) Comment: He accepted pt on his service. Doctor Will See Patient In The: Hospital Counseled Patient/Family Regarding: Studies Performed, Diagnosis - Disposition Disposition: HOSPITALIZED Disposition Time: 16:46 Condition: GUARDED - Clinical Impression Clinical Impression: Rectal bleeding, Pancytopenia, Coagulopathy, Hypokalemia
[2017-12-12] MEDS ORDERED: Potassium Chloride 20 mEq ER Tab PO ONE (16:56)
--- NOTE | 2017-12-12 18:21 | CP.PCM.HP ---
Past Patient History - Infectious Disease Hx of Infectious Diseases: None - Past Medical History & Family History Past Medical History?: Yes - Past Social History Smoking Status: Former Smoker - CARDIAC Hx Hypertension: Yes - PULMONARY Hx Asthma: Yes Hx Bronchitis: Yes - NEUROLOGICAL Other/Comment: SEVERE NEUROPATHY, hepatic encephalopathy. subdural hematoma - HEENT Hx HEENT Problems: Yes Other/Comment: Dimished vision bilateral - RENAL Hx Chronic Kidney Disease: No - ENDOCRINE/METABOLIC Hx Diabetes Mellitus Type 1: Yes Hx Diabetes Mellitus Type 2: Yes - HEMATOLOGICAL/ONCOLOGICAL Hx Anemia: Yes (with Pancytopenia) - INTEGUMENTARY Hx Psoriasis: Yes - MUSCULOSKELETAL/RHEUMATOLOGICAL Hx Arthritis: Yes Hx Fractures: Yes (right hip) Hx Osteoporosis: Yes - GASTROINTESTINAL Hx Diverticulitis: Yes Hx Gall Bladder Disease: Yes Hx Gastritis: Yes - GENITOURINARY/GYNECOLOGICAL Hx Genitourinary Disorders: No - PSYCHIATRIC Hx Anxiety: Yes Hx Depression: Yes Hx Substance Use: No - SURGICAL HISTORY Hx Appendectomy: Yes Hx Cholecystectomy: Yes - ANESTHESIA Hx Anesthesia: Yes Hx Anesthesia Reactions: No Hx Malignant Hyperthermia: No Meds Allergies/Adverse Reactions: Allergies Allergy/AdvReac Type Severity Reaction Status Date / Time acetaminophen [From Percocet] Allergy RASH Verified 11/08/17 20:36 aspirin Allergy RASH Verified 11/08/17 20:36 oxycodone HCl [From Percocet] Allergy RASH Verified 11/08/17 20:36 Penicillins Allergy RASH Verified 11/08/17 20:36 PAIN MEDICATIONS Allergy Uncoded 11/08/17 20:36 Results - Vital Signs Recent Vital Signs: Last Vital Signs Temp 98.6 F 12/12/17 17:37 Pulse 83 12/12/17 17:35 Resp 18 12/12/17 17:35 BP 126/48 L 12/12/17 17:35 Pulse Ox 95 12/12/17 17:35 - Labs Result Diagrams: 12/12/17 15:35 12/12/17 15:35 Labs: Laboratory Results - last 24 hr 12/12/17 12/12/17 12/12/17 14:34 15:35 15:35 WBC 2.4 L D RBC 2.38 L Hgb 8.7 L Hct 25.2 L MCV 105.7 H D MCH 36.6 H MCHC 34.6 RDW 19.5 H Plt Count 32 L MPV 8.5 Neut % (Auto) 73.0 Lymph % (Auto) 15.0 L Ector % (Auto) 7.5 Eos % (Auto) 3.6 Baso % (Auto) 0.9 Neut # (Auto) 1.7 L Lymph # (Auto) 0.4 L Ector # (Auto) 0.2 Eos # (Auto) 0.1 Baso # (Auto) 0.0 Differential Comment PT 21.1 H INR 1.8 APTT 44 H Sodium Potassium Chloride Carbon Dioxide Anion Gap BUN Creatinine Est GFR ( Amer) Est GFR (Non-Af Amer) POC Glucose (mg/dL) Random Glucose Calcium Total Bilirubin AST ALT Alkaline Phosphatase Ammonia Total Protein Albumin Globulin Albumin/Globulin Ratio Lipase Stool Occult Blood Negative Blood Type Antibody Screen Antibody Identification 12/12/17 12/12/17 12/12/17 15:35 15:35 15:38 WBC RBC Hgb Hct MCV MCH MCHC RDW Plt Count MPV Neut % (Auto) Lymph % (Auto) Ector % (Auto) Eos % (Auto) Baso % (Auto) Neut # (Auto) Lymph # (Auto) Ector # (Auto) Eos # (Auto) Baso # (Auto) Differential Comment PT INR APTT Sodium 134 Potassium 2.7 L Chloride 93 L Carbon Dioxide 33 H Anion Gap 11 BUN 14 Creatinine 0.5 L Est GFR ( Amer) > 60 Est GFR (Non-Af Amer) > 60 POC Glucose (mg/dL) Random Glucose 183 H Calcium 9.0 Total Bilirubin 8.5 H AST 52 H D ALT 23 Alkaline Phosphatase 148 H D Ammonia 53 H D Total Protein 5.9 L Albumin 2.7 L Globulin 3.2 Albumin/Globulin Ratio 0.8 L Lipase 134 Stool Occult Blood Blood Type O POSITIVE Antibody Screen Positive Antibody Identification Anti E 12/12/17 16:25 WBC RBC Hgb Hct MCV MCH MCHC RDW Plt Count MPV Neut % (Auto) Lymph % (Auto) Ector % (Auto) Eos % (Auto) Baso % (Auto) Neut # (Auto) Lymph # (Auto) Ector # (Auto) Eos # (Auto) Baso # (Auto) Differential Comment PT INR APTT Sodium Potassium Chloride Carbon Dioxide Anion Gap BUN Creatinine Est GFR ( Amer) Est GFR (Non-Af Amer) POC Glucose (mg/dL) 196 H Random Glucose Calcium Total Bilirubin AST ALT Alkaline Phosphatase Ammonia Total Protein Albumin Globulin Albumin/Globulin Ratio Lipase Stool Occult Blood Blood Type Antibody Screen Antibody Identification
[2017-12-12] MEDS: Albuterol-Ipratrop 3 mg / 0.5 (3 ml) UD IH SCH ×2 (19:57)
[2017-12-12] MEDS: Insulin Detemir 100 units/ml Vial (Levemir) SC SCH (22:07)
[2017-12-13] MEDS: Albuterol-Ipratrop 3 mg / 0.5 (3 ml) UD IH SCH ×4 (01:18→19:33)
[2017-12-13] MEDS: Magnesium Oxide 400 mg Tab UD PO SCH (10:01)
[2017-12-13] MEDS: Multiple Vitamins Tab PO SCH (10:01)
[2017-12-13] MEDS: Saccharomyces Boulardi 250 mg Cap PO SCH (10:01)
[2017-12-13 12:10] LABS: BASO % 0.4 % (0.0-2.0); EOS % 2.9 % (0.0-4.0); HEMOGLOBIN 9.2 g/dL (11.0-16.0); LYMPH # 0.3 K/uL (1.0-4.3); LYMPH % 19.2 % (20.0-40.0); MEAN CELL VOLUME 106.1 fL (81.0-99.0); MEAN CORPUSCULAR HEMOGLOBIN 37.4 pg (27.0-31.0); MEAN CORPUSCULAR HGB CONC 35.3 g/dL (33.0-37.0); MONO # 0.1 K/uL (0.0-0.8); MONO % 6.3 % (0.0-10.0); NEUT # 1.2 K/uL (1.8-7.0); NEUT % 71.2 % (50.0-75.0); NRBC % 0.3 % (0.0-2.0); RBC 2.45 Mil/uL (3.80-5.20)
[2017-12-13 12:14] LABS: BLOOD UREA NITROGEN 13 mg/dL (7-17); CALCIUM 9.2 mg/dl (8.6-10.4); GFR AFRICAN-AMERICAN > 60; GFR NON-AFRICAN AMERICAN > 60; MAGNESIUM 1.6 mg/dL (1.6-2.3)
[2017-12-13 12:20] LABS: WHITE BLOOD COUNT 1.7 K/uL (4.8-10.8)
--- NOTE | 2017-12-13 12:29 | CP.PCM.PN ---
Subjective - Date & Time of Evaluation Date of Evaluation: 12/13/17 Time of Evaluation: 12:00 - Subjective Subjective: Patient seen today , awake, alert, oriented to person and place, confused , c/o pain to the RLE no bleeding reported todays labs reviewed - platelet drops from 32- 3 Objective - Vital Signs/Intake and Output Vital Signs (last 24 hours): Temp Pulse Resp BP Pulse Ox 98.5 F 83 20 120/70 95 12/13/17 08:06 12/13/17 08:06 12/13/17 08:06 12/13/17 10:01 12/13/17 08:06 Intake and Output: 12/13/17 12/13/17 06:59 18:59 Intake Total 360 Output Total 1 Balance 359 - Medications Medications: Current Medications Albuterol/Ipratropium (Duoneb 3 Mg/0.5 Mg (3 Ml) Ud) 3 ml IH RQ6 [facility] Last Admin: 12/13/17 07:38 Dose: 3 ml Ascorbic Acid (Vitamin C 500 Mg Tab) 500 mg PO BID [facility] Last Admin: 12/13/17 10:02 Dose: 500 mg Duloxetine HCl (Cymbalta) 30 mg PO DAILY [facility] Last Admin: 12/13/17 10:01 Dose: 30 mg Famotidine (Pepcid) 20 mg PO DAILY [facility] Last Admin: 12/13/17 10:01 Dose: 20 mg Ferrous Sulfate (Feosol) 325 mg PO DAILY [facility] Last Admin: 12/13/17 10:02 Dose: 325 mg Folic Acid (Folic Acid) 1 mg PO DAILY [facility] Last Admin: 12/13/17 10:01 Dose: 1 mg Furosemide (Lasix) 40 mg PO DAILY [facility] Last Admin: 12/13/17 10:01 Dose: 40 mg Gabapentin (Neurontin) 100 mg PO BID [facility] Last Admin: 12/13/17 10:01 Dose: 100 mg Home Med (Lactulose [Lactulose]) 10 gm PO BID [facility] Insulin Detemir (Levemir) 20 unit SC [facility] Last Admin: 12/12/17 22:07 Dose: 20 unit Lactulose (Enulose) 20 gm PO [facility] Magnesium Oxide (Mag-Ox) 400 mg PO DAILY [facility] Last Admin: 12/13/17 10:01 Dose: 400 mg Multivitamins (Hexavitamin) 1 tab PO DAILY [facility] Last Admin: 12/13/17 10:01 Dose: 1 tab Mupirocin (Bactroban Ointment) 0 gm EXT BID [facility] Pantoprazole Sodium (Protonix Inj) 40 mg IVP Q12H [facility] Last Admin: 12/13/17 06:25 Dose: 40 mg Propranolol HCl (Inderal) 10 mg PO Q12H [facility] Last Admin: 12/13/17 06:24 Dose: 10 mg Saccharomyces Boulardii (Florastor) 250 mg PO DAILY [facility] Last Admin: 12/13/17 10:01 Dose: 250 mg Spironolactone (Aldactone) 25 mg PO DAILY [facility] Last Admin: 12/13/17 10:01 Dose: 25 mg Tramadol HCl (Ultram) 50 mg PO Q8H PRN PRN Reason: Pain, severe (8-10) - Labs Labs: 12/13/17 11:46 12/13/17 11:46 PT 21.1 SECONDS (9.7-12.2) H 12/12/17 15:35 INR 1.8 12/12/17 15:35 APTT 44 SECONDS (21-34) H 12/12/17 15:35 Assessment and Plan - Assessment and Plan (Free Text) Assessment: A/P 72 yr old female with pmhx of Diabetes, Diverticulitis, Fractures (right hip), Gastritis, Gall Bladder Disease, Hepatitis (C), HTN, Osteoporosis, cirrohisis admitted from Rectal bleeding, Pancytopenia, Coagulopathy, and hypokalemia K- improved hgb- stable platelet drops from 32-3 Dr. Pathak on consult for pancytopenia / anemia and thrombocytopenia D/w Dr. Pathak , recommended to transfuse 1 unit of platelets and repeat cbc after 2 hrs discussed with reji rivera , agree for platelet transfusion and telephone consent obtained from son for transfusion
[2017-12-13] MEDS: Potassium Chloride 20 mEq ER Tab PO SCH (12:57)
--- NOTE | 2017-12-13 13:40 | CP.PCM.CON ---
History of Present Illness - History of Present Illness History of Present Illness: CC: Rectal bleed HPI: Patient is well known to me. Transferred from rehab to ER for active bleeding from anus, according to transfer records. Since arrival in hospital there has not been any documented bleeding, patient states it happened only one time, stool is negative for occult blood, and Hgb is unchanged from prior. Patient has longstanding cirrhosis with varices, portal hypertension and hypersplenism with severe cgronic thrombocytopenia. Her inbound telemarketer is Dr Arguello. The patient underwent Hip ORIF S/P fall and fracture in early November. She developed hepatic encephalopathy on that admission. The patient had EGD and Colonoscopy within past 1-2 years. Rectal bleeds frequently develop as a result of severe thrombocytopenia and are managed conservatively with platelet transfusions under the auspices of Dr Maciel. The patient is letyhargic and not a reliable historian. All she can tell me is that she has pain from orthopedic surgery. Review of Systems - Review of Systems Systems not reviewed;Unavailable: Altered Mental Status Past Patient History - Infectious Disease Hx of Infectious Diseases: None - Past Medical History & Family History Past Medical History?: Yes - Past Social History Smoking Status: Former Smoker - CARDIAC Hx Cardiac Disorders: Yes Hx Hypertension: Yes - PULMONARY Hx Respiratory Disorders: Yes Hx Asthma: Yes Hx Bronchitis: Yes - NEUROLOGICAL Hx Neurological Disorder: No Other/Comment: SEVERE NEUROPATHY, hepatic encephalopathy. subdural hematoma - HEENT Hx HEENT Problems: Yes Other/Comment: Dimished vision bilateral - RENAL Hx Chronic Kidney Disease: No - ENDOCRINE/METABOLIC Hx Endocrine Disorders: Yes Hx Diabetes Mellitus Type 1: Yes Hx Diabetes Mellitus Type 2: Yes - HEMATOLOGICAL/ONCOLOGICAL Hx Blood Disorders: Yes Hx Anemia: Yes (with Pancytopenia) - INTEGUMENTARY Hx Dermatological Problems: Yes Hx Psoriasis: Yes - MUSCULOSKELETAL/RHEUMATOLOGICAL Hx Musculoskeletal Disorders: Yes Hx Falls: Yes - GASTROINTESTINAL Hx Gastrointestinal Disorders: Yes Hx Diverticulitis: Yes Hx Gall Bladder Disease: Yes Hx Gastritis: Yes - GENITOURINARY/GYNECOLOGICAL Hx Genitourinary Disorders: No - PSYCHIATRIC Hx Psychophysiologic Disorder: No Hx Substance Use: No - SURGICAL HISTORY Hx Surgeries: Yes Hx Appendectomy: Yes Hx Cholecystectomy: Yes - ANESTHESIA Hx Anesthesia: Yes Hx Anesthesia Reactions: No Hx Malignant Hyperthermia: No Has any member of the family had a problem w/ anesthesia?: No Meds Allergies/Adverse Reactions: Allergies Allergy/AdvReac Type Severity Reaction Status Date / Time acetaminophen [From Percocet] Allergy RASH Verified 11/08/17 20:36 aspirin Allergy RASH Verified 11/08/17 20:36 oxycodone HCl [From Percocet] Allergy RASH Verified 11/08/17 20:36 Penicillins Allergy RASH Verified 11/08/17 20:36 PAIN MEDICATIONS Allergy Uncoded 11/08/17 20:36 - Medications Medications: Current Medications Albuterol/Ipratropium (Duoneb 3 Mg/0.5 Mg (3 Ml) Ud) 3 ml IH RQ6 [facility] Last Admin: 12/13/17 07:38 Dose: 3 ml Ascorbic Acid (Vitamin C 500 Mg Tab) 500 mg PO BID [facility] Last Admin: 12/13/17 10:02 Dose: 500 mg Duloxetine HCl (Cymbalta) 30 mg PO DAILY [facility] Last Admin: 12/13/17 10:01 Dose: 30 mg Famotidine (Pepcid) 20 mg PO DAILY [facility] Last Admin: 12/13/17 10:01 Dose: 20 mg Ferrous Sulfate (Feosol) 325 mg PO DAILY [facility] Last Admin: 12/13/17 10:02 Dose: 325 mg Folic Acid (Folic Acid) 1 mg PO DAILY [facility] Last Admin: 12/13/17 10:01 Dose: 1 mg Furosemide (Lasix) 40 mg PO DAILY [facility] Last Admin: 12/13/17 10:01 Dose: 40 mg Gabapentin (Neurontin) 100 mg PO BID [facility] Last Admin: 12/13/17 10:01 Dose: 100 mg Home Med (Lactulose [Lactulose]) 10 gm PO BID [facility] Insulin Detemir (Levemir) 20 unit SC [facility] Last Admin: 12/12/17 22:07 Dose: 20 unit Lactulose (Enulose) 20 gm PO HS [facility] Magnesium Oxide (Mag-Ox) 400 mg PO DAILY [facility] Last Admin: 12/13/17 10:01 Dose: 400 mg Multivitamins (Hexavitamin) 1 tab PO DAILY [facility] Last Admin: 12/13/17 10:01 Dose: 1 tab Mupirocin (Bactroban Ointment) 0 gm EXT BID [facility] Pantoprazole Sodium (Protonix Inj) 40 mg IVP Q12H [facility] Last Admin: 12/13/17 06:25 Dose: 40 mg Potassium Chloride (K-Dur 20 Meq Er Tab) 40 meq PO DAILY [facility] Stop: 12/15/17 12:46 Last Admin: 12/13/17 12:57 Dose: 40 meq Propranolol HCl (Inderal) 10 mg PO Q12H [facility] Last Admin: 12/13/17 06:24 Dose: 10 mg Saccharomyces Boulardii (Florastor) 250 mg PO DAILY [facility] Last Admin: 12/13/17 10:01 Dose: 250 mg Spironolactone (Aldactone) 25 mg PO DAILY [facility] Last Admin: 12/13/17 10:01 Dose: 25 mg Tramadol HCl (Ultram) 50 mg PO Q8H PRN PRN Reason: Pain, severe (8-10) Physical Exam - Constitutional Appears: Chronically Ill - Eye Exam Eye Exam: Scleral icterus - Neck Exam Neck exam: Positive for: Normal Inspection - Respiratory Exam Respiratory Exam: Clear to Auscultation Bilateral - Cardiovascular Exam Cardiovascular Exam: REGULAR RHYTHM - GI/Abdominal Exam GI & Abdominal Exam: Soft. absent: Distended, Guarding, Mass, Organomegaly, Tenderness - Extremities Exam Extremities exam: Positive for: normal inspection - Neurological Exam Neurological exam: Alert Additional comments: Disoriented. Lethargic but arousable +Asterixis - Psychiatric Exam Psychiatric exam: Flat Affect - Skin Skin Exam: Warm Results - Vital Signs Recent Vital Signs: Last Vital Signs Temp 98.5 F 12/13/17 08:06 Pulse 83 12/13/17 08:06 Resp 20 12/13/17 08:06 BP 120/70 12/13/17 10:01 Pulse Ox 95 12/13/17 08:06 - Labs Result Diagrams: 12/13/17 11:46 12/13/17 11:46 Labs: Laboratory Results - last 24 hr 12/12/17 12/12/17 12/12/17 14:34 15:35 15:35 WBC 2.4 L D RBC 2.38 L Hgb 8.7 L Hct 25.2 L MCV 105.7 H D MCH 36.6 H MCHC 34.6 RDW 19.5 H Plt Count 32 L MPV 8.5 Neut % (Auto) 73.0 Lymph % (Auto) 15.0 L [place] % (Auto) 7.5 Eos % (Auto) 3.6 Baso % (Auto) 0.9 Neut # (Auto) 1.7 L Lymph # (Auto) 0.4 L [place] # (Auto) 0.2 Eos # (Auto) 0.1 Baso # (Auto) 0.0 Differential Comment PT 21.1 H INR 1.8 APTT 44 H Sodium Potassium Chloride Carbon Dioxide Anion Gap BUN Creatinine Est GFR ( Amer) Est GFR (Non-Af Amer) POC Glucose (mg/dL) Random Glucose Calcium Magnesium Total Bilirubin AST ALT Alkaline Phosphatase Ammonia Total Protein Albumin Globulin Albumin/Globulin Ratio Lipase Stool Occult Blood Negative Blood Type Antibody Screen Antibody Identification 12/12/17 12/12/17 12/12/17 15:35 15:35 15:38 WBC RBC Hgb Hct MCV MCH MCHC RDW Plt Count MPV Neut % (Auto) Lymph % (Auto) [place] % (Auto) Eos % (Auto) Baso % (Auto) Neut # (Auto) Lymph # (Auto) [place] # (Auto) Eos # (Auto) Baso # (Auto) Differential Comment PT INR APTT Sodium 134 Potassium 2.7 L Chloride 93 L Carbon Dioxide 33 H Anion Gap 11 BUN 14 Creatinine 0.5 L Est GFR ( Amer) > 60 Est GFR (Non-Af Amer) > 60 POC Glucose (mg/dL) Random Glucose 183 H Calcium 9.0 Magnesium Total Bilirubin 8.5 H AST 52 H D ALT 23 Alkaline Phosphatase 148 H D Ammonia 53 H D Total Protein 5.9 L Albumin 2.7 L Globulin 3.2 Albumin/Globulin Ratio 0.8 L Lipase 134 Stool Occult Blood Blood Type O POSITIVE Antibody Screen Positive Antibody Identification Anti E 12/12/17 12/12/17 12/13/17 16:25 20:53 06:15 WBC RBC Hgb Hct MCV MCH MCHC RDW Plt Count MPV Neut % (Auto) Lymph % (Auto) [place] % (Auto) Eos % (Auto) Baso % (Auto) Neut # (Auto) Lymph # (Auto) [place] # (Auto) Eos # (Auto) Baso # (Auto) Differential Comment PT INR APTT Sodium Potassium Chloride Carbon Dioxide Anion Gap BUN Creatinine Est GFR ( Amer) Est GFR (Non-Af Amer) POC Glucose (mg/dL) 196 H 199 H 149 H Random Glucose Calcium Magnesium Total Bilirubin AST ALT Alkaline Phosphatase Ammonia Total Protein Albumin Globulin Albumin/Globulin Ratio Lipase Stool Occult Blood Blood Type Antibody Screen Antibody Identification 12/13/17 12/13/17 12/13/17 11:12 11:46 11:46 WBC 1.7 L* RBC 2.45 L Hgb 9.2 L Hct 26.0 L MCV 106.1 H MCH 37.4 H MCHC 35.3 RDW 19.0 H Plt Count 3 L* D MPV 12.0 H Neut % (Auto) 71.2 Lymph % (Auto) 19.2 L [place] % (Auto) 6.3 Eos % (Auto) 2.9 Baso % (Auto) 0.4 Neut # (Auto) 1.2 L Lymph # (Auto) 0.3 L [place] # (Auto) 0.1 Eos # (Auto) 0.0 Baso # (Auto) 0.0 Differential Comment PT INR APTT Sodium 134 Potassium 3.5 L Chloride 96 L Carbon Dioxide 32 H Anion Gap 10 BUN 13 Creatinine 0.5 L Est GFR ( Amer) > 60 Est GFR (Non-Af Amer) > 60 POC Glucose (mg/dL) 102 Random Glucose 95 Calcium 9.2 Magnesium 1.6 Total Bilirubin AST ALT Alkaline Phosphatase Ammonia Total Protein Albumin Globulin Albumin/Globulin Ratio Lipase Stool Occult Blood Blood Type Antibody Screen Antibody Identification Assessment & Plan (1) Pancytopenia Assessment and Plan: Due to cirrhosis. Chronic. Status: Acute (2) Rectal bleeding Assessment and Plan: Inactive Monitor Conservative treatment, supportive care transfue platelets. Endoscopic intervention not indicated at present Status: Acute (3) Cirrhosis Assessment and Plan: Decompensated. Poor prognosis Status: Acute (4) Hepatic encephalopathy Assessment and Plan: Start Rifaximin Status: Acute
--- NOTE | 2017-12-13 15:36 | CP.PCM.PN ---
Subjective - Date & Time of Evaluation Date of Evaluation: 12/13/17 Time of Evaluation: 15:36 Objective - Vital Signs/Intake and Output Vital Signs (last 24 hours): Temp Pulse Resp BP Pulse Ox 98.5 F 83 20 120/70 95 12/13/17 08:06 12/13/17 08:06 12/13/17 08:06 12/13/17 10:01 12/13/17 08:06 Intake and Output: 12/13/17 12/13/17 06:59 18:59 Intake Total 360 Output Total 1 Balance 359 - Medications Medications: Current Medications Albuterol/Ipratropium (Duoneb 3 Mg/0.5 Mg (3 Ml) Ud) 3 ml IH RQ6 [facility] Last Admin: 12/13/17 07:38 Dose: 3 ml Ascorbic Acid (Vitamin C 500 Mg Tab) 500 mg PO BID [facility] Last Admin: 12/13/17 10:02 Dose: 500 mg Duloxetine HCl (Cymbalta) 30 mg PO DAILY [facility] Last Admin: 12/13/17 10:01 Dose: 30 mg Famotidine (Pepcid) 20 mg PO DAILY [facility] Last Admin: 12/13/17 10:01 Dose: 20 mg Ferrous Sulfate (Feosol) 325 mg PO DAILY [facility] Last Admin: 12/13/17 10:02 Dose: 325 mg Folic Acid (Folic Acid) 1 mg PO DAILY [facility] Last Admin: 12/13/17 10:01 Dose: 1 mg Furosemide (Lasix) 40 mg PO DAILY [facility] Last Admin: 12/13/17 10:01 Dose: 40 mg Gabapentin (Neurontin) 100 mg PO BID [facility] Last Admin: 12/13/17 10:01 Dose: 100 mg Home Med (Lactulose [Lactulose]) 10 gm PO BID [facility] Insulin Detemir (Levemir) 20 unit SC HS [facility] Last Admin: 12/12/17 22:07 Dose: 20 unit Lactulose (Enulose) 20 gm PO [facility] Magnesium Oxide (Mag-Ox) 400 mg PO DAILY [facility] Last Admin: 12/13/17 10:01 Dose: 400 mg Multivitamins (Hexavitamin) 1 tab PO DAILY [facility] Last Admin: 12/13/17 10:01 Dose: 1 tab Mupirocin (Bactroban Ointment) 0 gm EXT BID [facility] Pantoprazole Sodium (Protonix Inj) 40 mg IVP Q12H [facility] Last Admin: 12/13/17 06:25 Dose: 40 mg Potassium Chloride (K-Dur 20 Meq Er Tab) 40 meq PO DAILY [facility] Stop: 12/15/17 12:46 Last Admin: 12/13/17 12:57 Dose: 40 meq Propranolol HCl (Inderal) 10 mg PO Q12H [facility] Last Admin: 12/13/17 06:24 Dose: 10 mg Rifaximin (Xifaxan) 550 mg PO BID [facility] Saccharomyces Boulardii (Florastor) 250 mg PO DAILY [facility] Last Admin: 12/13/17 10:01 Dose: 250 mg Spironolactone (Aldactone) 25 mg PO DAILY [facility] Last Admin: 12/13/17 10:01 Dose: 25 mg Tramadol HCl (Ultram) 50 mg PO Q8H PRN PRN Reason: Pain, severe (8-10) - Labs Labs: 12/13/17 11:46 12/13/17 11:46 PT 21.1 SECONDS (9.7-12.2) H 12/12/17 15:35 INR 1.8 12/12/17 15:35 APTT 44 SECONDS (21-34) H 12/12/17 15:35
--- NOTE | 2017-12-13 15:49 | CP.PCM.CON ---
History of Present Illness - History of Present Illness History of Present Illness: 72 yo woman with HepC liver cirrhosis, splenomegaly, pancytopenia secondary to that, last hospitalization after fall at home for hip fracture requiring surgery , currently in rehab found to have rectal bleeding there and sent back to the hospital. She was found to be lethargic, hypokalemic, severely decreased platelet counts with no active bleeding noted. Scheduled to get platelet transfusion Past Patient History - Infectious Disease Hx of Infectious Diseases: None - Past Medical History & Family History Past Medical History?: Yes - Past Social History Smoking Status: Former Smoker - CARDIAC Hx Cardiac Disorders: Yes Hx Hypertension: Yes - PULMONARY Hx Respiratory Disorders: Yes Hx Asthma: Yes Hx Bronchitis: Yes - NEUROLOGICAL Hx Neurological Disorder: No Other/Comment: SEVERE NEUROPATHY, hepatic encephalopathy. subdural hematoma - HEENT Hx HEENT Problems: Yes Other/Comment: Dimished vision bilateral - RENAL Hx Chronic Kidney Disease: No - ENDOCRINE/METABOLIC Hx Endocrine Disorders: Yes Hx Diabetes Mellitus Type 1: Yes Hx Diabetes Mellitus Type 2: Yes - HEMATOLOGICAL/ONCOLOGICAL Hx Blood Disorders: Yes Hx Anemia: Yes (with Pancytopenia) - INTEGUMENTARY Hx Dermatological Problems: Yes Hx Psoriasis: Yes - MUSCULOSKELETAL/RHEUMATOLOGICAL Hx Musculoskeletal Disorders: Yes Hx Falls: Yes - GASTROINTESTINAL Hx Gastrointestinal Disorders: Yes Hx Diverticulitis: Yes Hx Gall Bladder Disease: Yes Hx Gastritis: Yes - GENITOURINARY/GYNECOLOGICAL Hx Genitourinary Disorders: No - PSYCHIATRIC Hx Psychophysiologic Disorder: No Hx Substance Use: No - SURGICAL HISTORY Hx Surgeries: Yes Hx Appendectomy: Yes Hx Cholecystectomy: Yes - ANESTHESIA Hx Anesthesia: Yes Hx Anesthesia Reactions: No Hx Malignant Hyperthermia: No Has any member of the family had a problem w/ anesthesia?: No Meds Allergies/Adverse Reactions: Allergies Allergy/AdvReac Type Severity Reaction Status Date / Time acetaminophen [From Percocet] Allergy RASH Verified 11/08/17 20:36 aspirin Allergy RASH Verified 11/08/17 20:36 oxycodone HCl [From Percocet] Allergy RASH Verified 11/08/17 20:36 Penicillins Allergy RASH Verified 11/08/17 20:36 PAIN MEDICATIONS Allergy Uncoded 11/08/17 20:36 - Medications Medications: Current Medications Albuterol/Ipratropium (Duoneb 3 Mg/0.5 Mg (3 Ml) Ud) 3 ml IH RQ6 [facility] Last Admin: 12/13/17 07:38 Dose: 3 ml Ascorbic Acid (Vitamin C 500 Mg Tab) 500 mg PO BID [facility] Last Admin: 12/13/17 10:02 Dose: 500 mg Duloxetine HCl (Cymbalta) 30 mg PO DAILY [facility] Last Admin: 12/13/17 10:01 Dose: 30 mg Famotidine (Pepcid) 20 mg PO DAILY [facility] Last Admin: 12/13/17 10:01 Dose: 20 mg Ferrous Sulfate (Feosol) 325 mg PO DAILY [facility] Last Admin: 12/13/17 10:02 Dose: 325 mg Folic Acid (Folic Acid) 1 mg PO DAILY [facility] Last Admin: 12/13/17 10:01 Dose: 1 mg Furosemide (Lasix) 40 mg PO DAILY [facility] Last Admin: 12/13/17 10:01 Dose: 40 mg Gabapentin (Neurontin) 100 mg PO BID [facility] Last Admin: 12/13/17 10:01 Dose: 100 mg Home Med (Lactulose [Lactulose]) 10 gm PO BID [facility] Insulin Detemir (Levemir) 20 unit SC HS [facility] Last Admin: 12/12/17 22:07 Dose: 20 unit Lactulose (Enulose) 20 gm PO HS [facility] Magnesium Oxide (Mag-Ox) 400 mg PO DAILY [facility] Last Admin: 12/13/17 10:01 Dose: 400 mg Multivitamins (Hexavitamin) 1 tab PO DAILY [facility] Last Admin: 12/13/17 10:01 Dose: 1 tab Mupirocin (Bactroban Ointment) 0 gm EXT BID [facility] Pantoprazole Sodium (Protonix Inj) 40 mg IVP Q12H [facility] Last Admin: 12/13/17 06:25 Dose: 40 mg Potassium Chloride (K-Dur 20 Meq Er Tab) 40 meq PO DAILY [facility] Stop: 12/15/17 12:46 Last Admin: 12/13/17 12:57 Dose: 40 meq Propranolol HCl (Inderal) 10 mg PO Q12H [facility] Last Admin: 12/13/17 06:24 Dose: 10 mg Rifaximin (Xifaxan) 550 mg PO BID [facility] Saccharomyces Boulardii (Florastor) 250 mg PO DAILY [facility] Last Admin: 12/13/17 10:01 Dose: 250 mg Spironolactone (Aldactone) 25 mg PO DAILY [facility] Last Admin: 12/13/17 10:01 Dose: 25 mg Tramadol HCl (Ultram) 50 mg PO Q8H PRN PRN Reason: Pain, severe (8-10) Results - Vital Signs Recent Vital Signs: Last Vital Signs Temp 98.5 F 12/13/17 08:06 Pulse 83 12/13/17 08:06 Resp 20 12/13/17 08:06 BP 120/70 12/13/17 10:01 Pulse Ox 95 12/13/17 08:06 - Labs Result Diagrams: 12/13/17 11:46 12/13/17 11:46 Labs: Laboratory Results - last 24 hr 12/12/17 12/12/17 12/12/17 15:35 15:35 15:35 WBC 2.4 L D RBC 2.38 L Hgb 8.7 L Hct 25.2 L MCV 105.7 H D MCH 36.6 H MCHC 34.6 RDW 19.5 H Plt Count 32 L MPV 8.5 Neut % (Auto) 73.0 Lymph % (Auto) 15.0 L [place] % (Auto) 7.5 Eos % (Auto) 3.6 Baso % (Auto) 0.9 Neut # (Auto) 1.7 L Lymph # (Auto) 0.4 L [place] # (Auto) 0.2 Eos # (Auto) 0.1 Baso # (Auto) 0.0 Differential Comment PT 21.1 H INR 1.8 APTT 44 H Sodium 134 Potassium 2.7 L Chloride 93 L Carbon Dioxide 33 H Anion Gap 11 BUN 14 Creatinine 0.5 L Est GFR ( Amer) > 60 Est GFR (Non-Af Amer) > 60 POC Glucose (mg/dL) Random Glucose 183 H Calcium 9.0 Magnesium Total Bilirubin 8.5 H AST 52 H D ALT 23 Alkaline Phosphatase 148 H D Ammonia Total Protein 5.9 L Albumin 2.7 L Globulin 3.2 Albumin/Globulin Ratio 0.8 L Lipase 134 Blood Type Antibody Screen Antibody Identification 12/12/17 12/12/17 12/12/17 15:35 15:38 16:25 WBC RBC Hgb Hct MCV MCH MCHC RDW Plt Count MPV Neut % (Auto) Lymph % (Auto) [place] % (Auto) Eos % (Auto) Baso % (Auto) Neut # (Auto) Lymph # (Auto) [place] # (Auto) Eos # (Auto) Baso # (Auto) Differential Comment PT INR APTT Sodium Potassium Chloride Carbon Dioxide Anion Gap BUN Creatinine Est GFR ( Amer) Est GFR (Non-Af Amer) POC Glucose (mg/dL) 196 H Random Glucose Calcium Magnesium Total Bilirubin AST ALT Alkaline Phosphatase Ammonia 53 H D Total Protein Albumin Globulin Albumin/Globulin Ratio Lipase Blood Type O POSITIVE Antibody Screen Positive Antibody Identification Anti E 12/12/17 12/13/17 12/13/17 20:53 06:15 11:12 WBC RBC Hgb Hct MCV MCH MCHC RDW Plt Count MPV Neut % (Auto) Lymph % (Auto) [place] % (Auto) Eos % (Auto) Baso % (Auto) Neut # (Auto) Lymph # (Auto) [place] # (Auto) Eos # (Auto) Baso # (Auto) Differential Comment PT INR APTT Sodium Potassium Chloride Carbon Dioxide Anion Gap BUN Creatinine Est GFR ( Amer) Est GFR (Non-Af Amer) POC Glucose (mg/dL) 199 H 149 H 102 Random Glucose Calcium Magnesium Total Bilirubin AST ALT Alkaline Phosphatase Ammonia Total Protein Albumin Globulin Albumin/Globulin Ratio Lipase Blood Type Antibody Screen Antibody Identification 12/13/17 12/13/17 11:46 11:46 WBC 1.7 L* RBC 2.45 L Hgb 9.2 L Hct 26.0 L MCV 106.1 H MCH 37.4 H MCHC 35.3 RDW 19.0 H Plt Count 3 L* D MPV 12.0 H Neut % (Auto) 71.2 Lymph % (Auto) 19.2 L [place] % (Auto) 6.3 Eos % (Auto) 2.9 Baso % (Auto) 0.4 Neut # (Auto) 1.2 L Lymph # (Auto) 0.3 L [place] # (Auto) 0.1 Eos # (Auto) 0.0 Baso # (Auto) 0.0 Differential Comment PT INR APTT Sodium 134 Potassium 3.5 L Chloride 96 L Carbon Dioxide 32 H Anion Gap 10 BUN 13 Creatinine 0.5 L Est GFR ( Amer) > 60 Est GFR (Non-Af Amer) > 60 POC Glucose (mg/dL) Random Glucose 95 Calcium 9.2 Magnesium 1.6 Total Bilirubin AST ALT Alkaline Phosphatase Ammonia Total Protein Albumin Globulin Albumin/Globulin Ratio Lipase Blood Type Antibody Screen Antibody Identification Assessment & Plan (1) Pancytopenia Assessment and Plan: 72 yo woman with chronic, stable pancytopenia secondary to hep C and hypersplenism, acute drop in platelet count, unclear etio, transient rectal bleeding, stable Hgb. Agree with platelet transfusion, Granix, check ferritin, coags and fibrinogen. Hold iron for now, till ferritin available, if less than 100, will give iv iron to avoid GI side effects Status: Acute
[2017-12-13] MEDS: Home Med 1 UNIT (Lactulose [Lactulose] 10 GM) PO SCH (18:00)
--- NOTE | 2017-12-13 19:17 | CARD ---
APPROVED REPORT EKG Measurement Heart [id number] <Conclusion> Normal sinus rhythm Prolonged QT Abnormal ECG
[2017-12-13] MEDS: Insulin Detemir 100 units/ml Vial (Levemir) SC SCH (21:34)
[2017-12-13 23:33] LABS: BASO % 0.4 % (0.0-2.0); EOS % 0.9 % (0.0-4.0); HEMOGLOBIN 8.2 g/dL (11.0-16.0); LYMPH # 0.1 K/uL (1.0-4.3); LYMPH % 3.1 % (20.0-40.0); MEAN CELL VOLUME 105.6 fL (81.0-99.0); MEAN CORPUSCULAR HEMOGLOBIN 37.1 pg (27.0-31.0); MEAN CORPUSCULAR HGB CONC 35.1 g/dL (33.0-37.0); MEAN PLATELET VOLUME 8.3 fL (7.2-11.7); MONO # 0.1 K/uL (0.0-0.8); MONO % 2.1 % (0.0-10.0); NEUT # 3.2 K/uL (1.8-7.0); NEUT % 93.5 % (50.0-75.0); NRBC % 0.2 % (0.0-2.0); PLATELET COUNT 38 K/uL (130-400); RED CELL DISTRIBUTION WIDTH 19.7 % (11.5-14.5); WHITE BLOOD COUNT 3.5 K/uL (4.8-10.8)
[2017-12-14 01:09] LABS: BANDS 8 % (0-2); LYMPHOCYTE 2 % (20-40); METAMYELOCYTE 1 % (0-0); NEUTROPHIL 89 % (50-75); TOTAL CELLS COUNTED 100
[2017-12-14 01:10] LABS: OVALOCYTES SLIGHT; PLATELET ESTIMATE MARKEDLY DECREASED (NORMAL); POLYCHROMIC MODERATE
[2017-12-14 01:11] LABS: LARGE PLATELETS PRESENT; TEARDROP CELLS SLIGHT; TOXIC GRANULATION PRESENT
[2017-12-14 01:12] LABS: BURR CELLS SLIGHT
[2017-12-14] MEDS: Albuterol-Ipratrop 3 mg / 0.5 (3 ml) UD IH SCH ×4 (01:15→19:08)
[2017-12-14 04:13] LABS: MONOCYTE 0 % (0-10)
--- NOTE | 2017-12-14 09:29 | CP.PCM.PN ---
Subjective - Date & Time of Evaluation Date of Evaluation: 12/14/17 Time of Evaluation: 09:26 - Subjective Subjective: Follow up Cirrhosis and rectal bleed Received platelet transfusion. No rectal bleeding noted since admission Confused Ate breakfast C/O headache and hip pain Objective - Vital Signs/Intake and Output Vital Signs (last 24 hours): Temp Pulse Resp BP Pulse Ox 98.1 F 85 20 123/70 94 L 12/14/17 07:59 12/14/17 07:59 12/14/17 07:59 12/14/17 07:59 12/14/17 07:59 Intake and Output: 12/14/17 12/14/17 06:59 18:59 Intake Total 624 370 Output Total 1 Balance 624 369 - Medications Medications: Current Medications Albuterol/Ipratropium (Duoneb 3 Mg/0.5 Mg (3 Ml) Ud) 3 ml IH RQ6 [facility] Last Admin: 12/14/17 07:45 Dose: 3 ml Ascorbic Acid (Vitamin C 500 Mg Tab) 500 mg PO BID [facility] Last Admin: 12/13/17 17:35 Dose: 500 mg Duloxetine HCl (Cymbalta) 30 mg PO DAILY [facility] Last Admin: 12/13/17 10:01 Dose: 30 mg Famotidine (Pepcid) 20 mg PO DAILY [facility] Last Admin: 12/13/17 10:01 Dose: 20 mg Ferrous Sulfate (Feosol) 325 mg PO DAILY [facility] Last Admin: 12/13/17 10:02 Dose: 325 mg Folic Acid (Folic Acid) 1 mg PO DAILY [facility] Last Admin: 12/13/17 10:01 Dose: 1 mg Furosemide (Lasix) 40 mg PO DAILY [facility] Last Admin: 12/13/17 10:01 Dose: 40 mg Gabapentin (Neurontin) 100 mg PO BID [facility] Last Admin: 12/13/17 17:34 Dose: 100 mg Home Med (Lactulose [Lactulose]) 10 gm PO BID [facility] Last Admin: 12/13/17 18:00 Dose: Not Given Insulin Detemir (Levemir) 20 unit SC [facility] Last Admin: 12/13/17 21:34 Dose: 20 unit Lactulose (Enulose) 20 gm PO HS [facility] Last Admin: 12/13/17 21:31 Dose: 20 gm Magnesium Oxide (Mag-Ox) 400 mg PO DAILY [facility] Last Admin: 12/13/17 10:01 Dose: 400 mg Multivitamins (Hexavitamin) 1 tab PO DAILY [facility] Last Admin: 12/13/17 10:01 Dose: 1 tab Mupirocin (Bactroban Ointment) 0 gm EXT BID [facility] Last Admin: 12/14/17 08:45 Dose: Not Given Pantoprazole Sodium (Protonix Inj) 40 mg IVP Q12H [facility] Last Admin: 12/14/17 05:44 Dose: 40 mg Potassium Chloride (K-Dur 20 Meq Er Tab) 40 meq PO DAILY [facility] Stop: 12/15/17 12:46 Last Admin: 12/13/17 12:57 Dose: 40 meq Propranolol HCl (Inderal) 10 mg PO Q12H [facility] Last Admin: 12/14/17 05:44 Dose: 10 mg Rifaximin (Xifaxan) 550 mg PO BID [facility] Last Admin: 12/13/17 17:34 Dose: 550 mg Saccharomyces Boulardii (Florastor) 250 mg PO DAILY [facility] Last Admin: 12/13/17 10:01 Dose: 250 mg Spironolactone (Aldactone) 25 mg PO DAILY [facility] Last Admin: 12/13/17 10:01 Dose: 25 mg Tramadol HCl (Ultram) 50 mg PO Q8H PRN PRN Reason: Pain, severe (8-10) Last Admin: 12/14/17 00:48 Dose: 50 mg - Labs Labs: 12/13/17 23:30 12/13/17 11:46 PT 21.1 SECONDS (9.7-12.2) H 12/12/17 15:35 INR 1.8 12/12/17 15:35 APTT 44 SECONDS (21-34) H 12/12/17 15:35 - Constitutional Appears: Confused, Chronically Ill - Head Exam Head Exam: NORMOCEPHALIC - Eye Exam Eye Exam: Scleral icterus - Neck Exam Neck Exam: Normal Inspection. absent: Tenderness - Respiratory Exam Respiratory Exam: Clear to Ausculation Bilateral - Cardiovascular Exam Cardiovascular Exam: REGULAR RHYTHM - GI/Abdominal Exam GI & Abdominal Exam: Soft. absent: Tenderness, Mass, Organomegaly Assessment and Plan (1) Pancytopenia Assessment & Plan: Chronic. Due to Cirrhosis Status: Acute (2) Rectal bleeding Assessment & Plan: No bleeding noted Hgb stable Due to thrombocytopenia Status: Acute (3) Cirrhosis Assessment & Plan: Due to HCV No acute treatment needed Continue supportive care Lasix / Aldactone, monitor electrolytes F/U with out patient [employer] Support [employer] after discharge Status: Acute (4) Hepatic encephalopathy Assessment & Plan: Treat with Lactulose and Rifaximin Head CT recommended to evaluate altered mental status in setting of severe thrombocytopenia Status: Acute
[2017-12-14] MEDS: Saccharomyces Boulardi 250 mg Cap PO SCH (09:49)
[2017-12-14] MEDS: Magnesium Oxide 400 mg Tab UD PO SCH (09:50)
[2017-12-14] MEDS: Multiple Vitamins Tab PO SCH (09:50)
[2017-12-14] MEDS: Potassium Chloride 20 mEq ER Tab PO SCH (09:50)
--- NOTE | 2017-12-14 10:41 | CT ---
PROCEDURE: CT HEAD WITHOUT CONTRAST. HISTORY: Altered mental st comparison COMPARISON: Made with prior CT scan brain 06/25/2018. TECHNIQUE: Axial computed tomography images were obtained through the head/brain without intravenous contrast. Radiation dose: Total exam DLP = 922.8 mGy-cm. This CT exam was performed using one or more of the following dose reduction techniques: Automated exposure control, adjustment of the mA and/or kV according to patient size, and/or use of iterative reconstruction technique. FINDINGS: HEMORRHAGE: No acute parenchymal, subarachnoid nor extra-axial hemorrhage. . BRAIN: Moderate diffuse/ confluent chronic periventricular white matter ischemic changes seen extending peripherally into the deep and subcortical white matter both cerebral hemispheres. . There also appears to be some extension of these changes into white matter tracts of both basal nuclei. Moderate generalized volume loss. Vascular calcifications both carotid siphons and vertebral arteries. VENTRICLES: No obstructive hydrocephalus. CALVARIUM: No acute calvarial fractures PARANASAL SINUSES: Unremarkable as visualized. No significant inflammatory changes. 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 No inflammatory changes. OTHER FINDINGS: None. IMPRESSION: No acute intracranial hemorrhage. Moderate diffuse/ confluent chronic white matter ischemic changes with some extension into white matter tracts of both basal nuclei. Moderate generalized volume loss.
[2017-12-14 13:58] LABS: BASO % 0.2 % (0.0-2.0); EOS # 0.1 K/uL (0.0-0.7); EOS % 1.3 % (0.0-4.0); HEMOGLOBIN 8.4 g/dL (11.0-16.0); LYMPH # 0.4 K/uL (1.0-4.3); LYMPH % 5.6 % (20.0-40.0); MEAN CELL VOLUME 104.9 fL (81.0-99.0); MEAN CORPUSCULAR HEMOGLOBIN 37.1 pg (27.0-31.0); MEAN CORPUSCULAR HGB CONC 35.3 g/dL (33.0-37.0); MEAN PLATELET VOLUME 8.4 fL (7.2-11.7); MONO # 0.3 K/uL (0.0-0.8); MONO % 4.1 % (0.0-10.0); NEUT # 6.6 K/uL (1.8-7.0); NEUT % 88.8 % (50.0-75.0); NRBC % 0.1 % (0.0-2.0); RBC 2.26 Mil/uL (3.80-5.20); RED CELL DISTRIBUTION WIDTH 19.1 % (11.5-14.5)
[2017-12-14 13:59] LABS: PLATELET COUNT 30 K/uL (130-400); WHITE BLOOD COUNT 7.4 K/uL (4.8-10.8)
[2017-12-14 14:22] LABS: BANDS 15 % (0-2); EOSINOPHIL 2 % (0-4); LYMPHOCYTE 6 % (20-40); NEUTROPHIL 77 % (50-75); PLATELET ESTIMATE MARKEDLY DECREASED (NORMAL); TOTAL CELLS COUNTED 100
[2017-12-14 14:23] LABS: ANISOCYTOSIS MODERATE
[2017-12-14 14:24] LABS: POIKILOCYTOSIS SLIGHT
[2017-12-14 14:26] LABS: OVALOCYTES SLIGHT
[2017-12-14] MEDS: Home Med 1 UNIT (Lactulose [Lactulose] 10 GM) PO SCH (15:07)
--- NOTE | 2017-12-14 15:24 | RAD ---
PROCEDURE: Left Knee Radiographs. HISTORY: Pain. COMPARISON: None. FINDINGS: BONES: No evidence of acute displaced fracture nor dislocation. The osseous structures appear intact. JOINTS: Chondrocalcinosis noted within the medial and lateral joint space margins ; rule out CPPD. Mild tricompartmental degenerative osteoarthritis. JOINT EFFUSION: Small suprapatellar joint effusion. Questionable mild prepatellar subcutaneous swelling OTHER FINDINGS: None. IMPRESSION: No acute fractures. Chondrocalcinosis ; rule out CPPD. Mild tricompartmental DJD. Small suprapatellar joint effusion. Questionable mild prepatellar subcutaneous swelling
--- NOTE | 2017-12-14 17:45 | CP.PCM.PN ---
Subjective - Date & Time of Evaluation Date of Evaluation: 12/14/17 Time of Evaluation: 17:45 Objective - Vital Signs/Intake and Output Vital Signs (last 24 hours): Temp Pulse Resp BP Pulse Ox 98 F 86 20 122/74 97 12/14/17 16:00 12/14/17 16:00 12/14/17 16:00 12/14/17 16:00 12/14/17 16:00 Intake and Output: 12/14/17 12/14/17 06:59 18:59 Intake Total 624 370 Output Total 1 Balance 624 369 - Medications Medications: Current Medications Albuterol/Ipratropium (Duoneb 3 Mg/0.5 Mg (3 Ml) Ud) 3 ml IH RQ6 [facility] Last Admin: 12/14/17 13:56 Dose: 3 ml Ascorbic Acid (Vitamin C 500 Mg Tab) 500 mg PO BID [facility] Last Admin: 12/14/17 09:50 Dose: 500 mg Duloxetine HCl (Cymbalta) 30 mg PO DAILY [facility] Last Admin: 12/14/17 09:50 Dose: 30 mg Famotidine (Pepcid) 20 mg PO DAILY [facility] Last Admin: 12/14/17 09:50 Dose: 20 mg Ferrous Sulfate (Feosol) 325 mg PO DAILY [facility] Last Admin: 12/13/17 10:02 Dose: 325 mg Folic Acid (Folic Acid) 1 mg PO DAILY [facility] Last Admin: 12/14/17 09:50 Dose: 1 mg Furosemide (Lasix) 40 mg PO DAILY [facility] Last Admin: 12/14/17 09:50 Dose: 40 mg Gabapentin (Neurontin) 100 mg PO BID [facility] Last Admin: 12/14/17 09:50 Dose: 100 mg Home Med (Lactulose [Lactulose]) 10 gm PO BID [facility] Last Admin: 12/14/17 15:07 Dose: Not Given Insulin Detemir (Levemir) 20 unit SC HS [facility] Last Admin: 12/13/17 21:34 Dose: 20 unit Lactulose (Enulose) 20 gm PO HS [facility] Last Admin: 12/13/17 21:31 Dose: 20 gm Magnesium Oxide (Mag-Ox) 400 mg PO DAILY [facility] Last Admin: 12/14/17 09:50 Dose: 400 mg Multivitamins (Hexavitamin) 1 tab PO DAILY [facility] Last Admin: 02/03/18 09:50 Dose: 1 tab Mupirocin (Bactroban Ointment) 0 gm EXT BID [facility] Last Admin: 12/14/17 08:45 Dose: Not Given Pantoprazole Sodium (Protonix Inj) 40 mg IVP Q12H [facility] Last Admin: 12/14/17 05:44 Dose: 40 mg Potassium Chloride (K-Dur 20 Meq Er Tab) 40 meq PO DAILY [facility] Stop: 12/15/17 12:46 Last Admin: 12/14/17 09:50 Dose: 40 meq Propranolol HCl (Inderal) 10 mg PO Q12H [facility] Last Admin: 12/14/17 05:44 Dose: 10 mg Rifaximin (Xifaxan) 550 mg PO BID [facility] Last Admin: 12/14/17 09:50 Dose: 550 mg Saccharomyces Boulardii (Florastor) 250 mg PO DAILY [facility] Last Admin: 12/14/17 09:49 Dose: 250 mg Spironolactone (Aldactone) 25 mg PO DAILY [facility] Last Admin: 12/14/17 09:50 Dose: 25 mg Tramadol HCl (Ultram) 50 mg PO Q8H PRN PRN Reason: Pain, severe (8-10) Last Admin: 12/14/17 13:34 Dose: 50 mg - Labs Labs: 12/14/17 13:43 12/13/17 11:46 PT 21.1 SECONDS (9.7-12.2) H 12/12/17 15:35 INR 1.8 12/12/17 15:35 APTT 44 SECONDS (21-34) H 12/12/17 15:35
[2017-12-14] MEDS: Insulin Detemir 100 units/ml Vial (Levemir) SC SCH (21:54)
[2017-12-15] MEDS: Albuterol-Ipratrop 3 mg / 0.5 (3 ml) UD IH SCH ×4 (01:57→19:43)
[2017-12-15] MEDS: Potassium Chloride 20 mEq ER Tab PO SCH (09:35)
[2017-12-15] MEDS: Magnesium Oxide 400 mg Tab UD PO SCH (09:41)
[2017-12-15] MEDS: Saccharomyces Boulardi 250 mg Cap PO SCH (09:41)
[2017-12-15] MEDS: Multiple Vitamins Tab PO SCH (09:44)
--- NOTE | 2017-12-15 12:49 | CP.PCM.PN ---
Subjective - Date & Time of Evaluation Date of Evaluation: 12/15/17 Time of Evaluation: 12:47 - Subjective Subjective: CC: follow up cirrhosis No rectal bleeding No abdominal pain Confused. Laying in brown stool Objective - Vital Signs/Intake and Output Vital Signs (last 24 hours): Temp Pulse Resp BP Pulse Ox 98.3 F 80 20 144/68 97 12/14/17 23:15 12/15/17 08:19 12/14/17 23:15 12/15/17 09:41 12/14/17 23:15 Intake and Output: 12/15/17 12/15/17 06:59 18:59 Intake Total 400 Balance 400 - Medications Medications: Current Medications Albuterol/Ipratropium (Duoneb 3 Mg/0.5 Mg (3 Ml) Ud) 3 ml IH RQ6 [facility] Last Admin: 12/15/17 08:52 Dose: 3 ml Ascorbic Acid (Vitamin C 500 Mg Tab) 500 mg PO BID [facility] Last Admin: 12/15/17 09:41 Dose: 500 mg Duloxetine HCl (Cymbalta) 30 mg PO DAILY [facility] Last Admin: 12/15/17 09:41 Dose: 30 mg Famotidine (Pepcid) 20 mg PO DAILY [facility] Last Admin: 12/15/17 09:35 Dose: 20 mg Ferrous Sulfate (Feosol) 325 mg PO DAILY [facility] Last Admin: 12/13/17 10:02 Dose: 325 mg Folic Acid (Folic Acid) 1 mg PO DAILY [facility] Last Admin: 12/15/17 09:36 Dose: 1 mg Furosemide (Lasix) 40 mg PO DAILY [facility] Last Admin: 12/15/17 09:41 Dose: 40 mg Gabapentin (Neurontin) 100 mg PO BID [facility] Last Admin: 12/15/17 09:41 Dose: 100 mg Insulin Detemir (Levemir) 20 unit SC HS [facility] Last Admin: 12/14/17 21:54 Dose: 20 unit Lactulose (Enulose) 20 gm PO HS [facility] Last Admin: 12/14/17 21:54 Dose: 20 gm Magnesium Oxide (Mag-Ox) 400 mg PO DAILY [facility] Last Admin: 12/15/17 09:41 Dose: 400 mg Multivitamins (Hexavitamin) 1 tab PO DAILY [facility] Last Admin: 12/15/17 09:44 Dose: 1 tab Mupirocin (Bactroban Ointment) 0 gm EXT BID [facility] Last Admin: 12/15/17 09:42 Dose: 1 oin Pantoprazole Sodium (Protonix Inj) 40 mg IVP Q12H [facility] Last Admin: 12/15/17 05:45 Dose: 40 mg Propranolol HCl (Inderal) 10 mg PO Q12H [facility] Last Admin: 12/15/17 05:45 Dose: 10 mg Rifaximin (Xifaxan) 550 mg PO BID [facility] Last Admin: 12/15/17 09:41 Dose: 550 mg Saccharomyces Boulardii (Florastor) 250 mg PO DAILY [facility] Last Admin: 12/15/17 09:41 Dose: 250 mg Spironolactone (Aldactone) 25 mg PO DAILY [facility] Last Admin: 12/15/17 09:41 Dose: 25 mg Tramadol HCl (Ultram) 50 mg PO Q6 PRN PRN Reason: pain Last Admin: 12/15/17 09:37 Dose: 50 mg - Labs Labs: 12/14/17 13:43 12/13/17 11:46 PT 21.1 SECONDS (9.7-12.2) H 12/12/17 15:35 INR 1.8 12/12/17 15:35 APTT 44 SECONDS (21-34) H 12/12/17 15:35 - Constitutional Appears: No Acute Distress - Head Exam Head Exam: NORMOCEPHALIC - Eye Exam Eye Exam: Scleral icterus - Respiratory Exam Respiratory Exam: NORMAL BREATHING PATTERN - Cardiovascular Exam Cardiovascular Exam: REGULAR RHYTHM - GI/Abdominal Exam GI & Abdominal Exam: Soft. absent: Tenderness Assessment and Plan (1) Pancytopenia Assessment & Plan: Stable Status: Acute (2) Rectal bleeding Assessment & Plan: Stable Status: Acute (3) Cirrhosis Assessment & Plan: with ascites, portal HTN, encephalopathy, pancytopenia Management as previously noted Status: Acute (4) Hepatic encephalopathy Assessment & Plan: Rifaximin + Lactulose. Some improvement noted CT Head does not show hemorrhage Status: Acute
--- NOTE | 2017-12-15 13:07 | CP.PCM.CON ---
History of Present Illness - History of Present Illness History of Present Illness: id: [id number] YO FEMALE cc: SEVERE r KNEE PAIN AND RESTRICTED ROM Left knee HPI- 72 yo female with pain and restricted ROM L knee. Called on consult. Pt wishes definite management of O/A R knee. PT has had long hx of pain and rstricted ROM L knee. Pt cannot no longer stand discomfort and wishes L knee to be replaced Past Patient History - Infectious Disease Hx of Infectious Diseases: None - Past Medical History & Family History Past Medical History?: Yes - Past Social History Smoking Status: Former Smoker - CARDIAC Hx Cardiac Disorders: Yes Hx Hypertension: Yes - PULMONARY Hx Respiratory Disorders: Yes Hx Asthma: Yes Hx Bronchitis: Yes - NEUROLOGICAL Hx Neurological Disorder: No Other/Comment: SEVERE NEUROPATHY, hepatic encephalopathy. subdural hematoma - HEENT Hx HEENT Problems: Yes Other/Comment: Dimished vision bilateral - RENAL Hx Chronic Kidney Disease: No - ENDOCRINE/METABOLIC Hx Endocrine Disorders: Yes Hx Diabetes Mellitus Type 1: Yes Hx Diabetes Mellitus Type 2: Yes - HEMATOLOGICAL/ONCOLOGICAL Hx Blood Disorders: Yes Hx Anemia: Yes (with Pancytopenia) - INTEGUMENTARY Hx Dermatological Problems: Yes Hx Psoriasis: Yes - MUSCULOSKELETAL/RHEUMATOLOGICAL Hx Musculoskeletal Disorders: Yes Hx Falls: Yes - GASTROINTESTINAL Hx Gastrointestinal Disorders: Yes Hx Diverticulitis: Yes Hx Gall Bladder Disease: Yes Hx Gastritis: Yes - GENITOURINARY/GYNECOLOGICAL Hx Genitourinary Disorders: No - PSYCHIATRIC Hx Psychophysiologic Disorder: No Hx Substance Use: No - SURGICAL HISTORY Hx Surgeries: Yes Hx Appendectomy: Yes Hx Cholecystectomy: Yes - ANESTHESIA Hx Anesthesia: Yes Hx Anesthesia Reactions: No Hx Malignant Hyperthermia: No Has any member of the family had a problem w/ anesthesia?: No Meds Allergies/Adverse Reactions: Allergies Allergy/AdvReac Type Severity Reaction Status Date / Time acetaminophen [From Percocet] Allergy RASH Verified 11/08/17 20:36 aspirin Allergy RASH Verified 11/08/17 20:36 oxycodone HCl [From Percocet] Allergy RASH Verified 11/08/17 20:36 Penicillins Allergy RASH Verified 11/08/17 20:36 PAIN MEDICATIONS Allergy Uncoded 11/08/17 20:36 - Medications Medications: Current Medications Albuterol/Ipratropium (Duoneb 3 Mg/0.5 Mg (3 Ml) Ud) 3 ml IH RQ6 [facility] Last Admin: 12/15/17 08:52 Dose: 3 ml Ascorbic Acid (Vitamin C 500 Mg Tab) 500 mg PO BID [facility] Last Admin: 12/15/17 09:41 Dose: 500 mg Duloxetine HCl (Cymbalta) 30 mg PO DAILY [facility] Last Admin: 12/15/17 09:41 Dose: 30 mg Famotidine (Pepcid) 20 mg PO DAILY [facility] Last Admin: 12/15/17 09:35 Dose: 20 mg Ferrous Sulfate (Feosol) 325 mg PO DAILY [facility] Last Admin: 12/13/17 10:02 Dose: 325 mg Folic Acid (Folic Acid) 1 mg PO DAILY [facility] Last Admin: 12/15/17 09:36 Dose: 1 mg Furosemide (Lasix) 40 mg PO DAILY [facility] Last Admin: 12/15/17 09:41 Dose: 40 mg Gabapentin (Neurontin) 100 mg PO BID [facility] Last Admin: 12/15/17 09:41 Dose: 100 mg Insulin Detemir (Levemir) 20 unit SC HS [facility] Last Admin: 12/14/17 21:54 Dose: 20 unit Lactulose (Enulose) 20 gm PO HS [facility] Last Admin: 12/14/17 21:54 Dose: 20 gm Magnesium Oxide (Mag-Ox) 400 mg PO DAILY [facility] Last Admin: 12/15/17 09:41 Dose: 400 mg Multivitamins (Hexavitamin) 1 tab PO DAILY [facility] Last Admin: 12/15/17 09:44 Dose: 1 tab Mupirocin (Bactroban Ointment) 0 gm EXT BID [facility] Last Admin: 12/15/17 09:42 Dose: 1 oin Pantoprazole Sodium (Protonix Inj) 40 mg IVP Q12H [facility] Last Admin: 12/15/17 05:45 Dose: 40 mg Propranolol HCl (Inderal) 10 mg PO Q12H [facility] Last Admin: 12/15/17 05:45 Dose: 10 mg Rifaximin (Xifaxan) 550 mg PO BID [facility] Last Admin: 12/15/17 09:41 Dose: 550 mg Saccharomyces Boulardii (Florastor) 250 mg PO DAILY [facility] Last Admin: 12/15/17 09:41 Dose: 250 mg Spironolactone (Aldactone) 25 mg PO DAILY [facility] Last Admin: 12/15/17 09:41 Dose: 25 mg Tramadol HCl (Ultram) 50 mg PO Q6 PRN PRN Reason: pain Last Admin: 12/15/17 09:37 Dose: 50 mg Physical Exam - Additional Findings Additional findings: Musculoskeletal stance/gait- defrred ROM L knee resticted positive effusion n/v intact Results - Vital Signs Recent Vital Signs: Last Vital Signs Temp 98.3 F 12/14/17 23:15 Pulse 80 12/15/17 08:19 Resp 20 12/14/17 23:15 BP 144/68 12/15/17 09:41 Pulse Ox 97 12/14/17 23:15 - Labs Result Diagrams: 12/14/17 13:43 12/13/17 11:46 Labs: Laboratory Results - last 24 hr 12/14/17 12/14/17 12/14/17 13:43 16:56 21:05 WBC 7.4 D RBC 2.26 L Hgb 8.4 L Hct 23.7 L MCV 104.9 H MCH 37.1 H MCHC 35.3 RDW 19.1 H Plt Count 30 L* MPV 8.4 Neut % (Auto) 88.8 H Lymph % (Auto) 5.6 L Craig % (Auto) 4.1 Eos % (Auto) 1.3 Baso % (Auto) 0.2 Neut # (Auto) 6.6 Lymph # (Auto) 0.4 L Craig # (Auto) 0.3 Eos # (Auto) 0.1 Baso # (Auto) 0.0 Neutrophils % (Manual) 77 H Band Neutrophils % 15 H* Lymphocytes % (Manual) 6 L Monocytes % (Manual) TEST NOT PERFORMED Eosinophils % (Manual) 2 Platelet Estimate Markedly decreased L Poikilocytosis (manual Slight Basophilic Stippling Slight Anisocytosis (manual) Moderate Macrocytosis (manual) Moderate Ovalocytes Slight POC Glucose (mg/dL) 219 H 207 H 12/15/17 12/15/17 06:18 11:24 WBC RBC Hgb Hct MCV MCH MCHC RDW Plt Count MPV Neut % (Auto) Lymph % (Auto) Craig % (Auto) Eos % (Auto) Baso % (Auto) Neut # (Auto) Lymph # (Auto) Craig # (Auto) Eos # (Auto) Baso # (Auto) Neutrophils % (Manual) Band Neutrophils % Lymphocytes % (Manual) Monocytes % (Manual) Eosinophils % (Manual) Platelet Estimate Poikilocytosis (manual Basophilic Stippling Anisocytosis (manual) Macrocytosis (manual) Ovalocytes POC Glucose (mg/dL) 169 H 242 H - Impressions Impression: Xray- severe tricompartmnetal O/A L knee Assessment & Plan - Assessment and Plan (Free Text) Assessment: A- tricompartmental O/A L knee P- to OR for L TKR
--- NOTE | 2017-12-15 13:12 | CP.PCM.CON ---
History of Present Illness - History of Present Illness History of Present Illness: Addendum pt s/p ORIF R intrertrochanteric hip fx in November pt now with pain and rstricted ROMN L knee and R knee as welll willobtain new xrays R hip and R knee IMp: Primary O/A R knee/Lnee s/p ORIF R intertrochanteric hip fx P Xray R hip R knee Past Patient History - Infectious Disease Hx of Infectious Diseases: None - Past Medical History & Family History Past Medical History?: Yes - Past Social History Smoking Status: Former Smoker - CARDIAC Hx Cardiac Disorders: Yes Hx Hypertension: Yes - PULMONARY Hx Respiratory Disorders: Yes Hx Asthma: Yes Hx Bronchitis: Yes - NEUROLOGICAL Hx Neurological Disorder: No Other/Comment: SEVERE NEUROPATHY, hepatic encephalopathy. subdural hematoma - HEENT Hx HEENT Problems: Yes Other/Comment: Dimished vision bilateral - RENAL Hx Chronic Kidney Disease: No - ENDOCRINE/METABOLIC Hx Endocrine Disorders: Yes Hx Diabetes Mellitus Type 1: Yes Hx Diabetes Mellitus Type 2: Yes - HEMATOLOGICAL/ONCOLOGICAL Hx Blood Disorders: Yes Hx Anemia: Yes (with Pancytopenia) - INTEGUMENTARY Hx Dermatological Problems: Yes Hx Psoriasis: Yes - MUSCULOSKELETAL/RHEUMATOLOGICAL Hx Musculoskeletal Disorders: Yes Hx Falls: Yes - GASTROINTESTINAL Hx Gastrointestinal Disorders: Yes Hx Diverticulitis: Yes Hx Gall Bladder Disease: Yes Hx Gastritis: Yes - GENITOURINARY/GYNECOLOGICAL Hx Genitourinary Disorders: No - PSYCHIATRIC Hx Psychophysiologic Disorder: No Hx Substance Use: No - SURGICAL HISTORY Hx Surgeries: Yes Hx Appendectomy: Yes Hx Cholecystectomy: Yes - ANESTHESIA Hx Anesthesia: Yes Hx Anesthesia Reactions: No Hx Malignant Hyperthermia: No Has any member of the family had a problem w/ anesthesia?: No Meds Allergies/Adverse Reactions: Allergies Allergy/AdvReac Type Severity Reaction Status Date / Time acetaminophen [From Percocet] Allergy RASH Verified 11/08/17 20:36 aspirin Allergy RASH Verified 11/08/17 20:36 oxycodone HCl [From Percocet] Allergy RASH Verified 11/08/17 20:36 Penicillins Allergy RASH Verified 11/08/17 20:36 PAIN MEDICATIONS Allergy Uncoded 11/08/17 20:36 - Medications Medications: Current Medications Albuterol/Ipratropium (Duoneb 3 Mg/0.5 Mg (3 Ml) Ud) 3 ml IH RQ6 [facility] Last Admin: 12/15/17 08:52 Dose: 3 ml Ascorbic Acid (Vitamin C 500 Mg Tab) 500 mg PO BID [facility] Last Admin: 12/15/17 09:41 Dose: 500 mg Duloxetine HCl (Cymbalta) 30 mg PO DAILY [facility] Last Admin: 12/15/17 09:41 Dose: 30 mg Famotidine (Pepcid) 20 mg PO DAILY [facility] Last Admin: 12/15/17 09:35 Dose: 20 mg Ferrous Sulfate (Feosol) 325 mg PO DAILY [facility] Last Admin: 12/13/17 10:02 Dose: 325 mg Folic Acid (Folic Acid) 1 mg PO DAILY [facility] Last Admin: 12/15/17 09:36 Dose: 1 mg Furosemide (Lasix) 40 mg PO DAILY [facility] Last Admin: 12/15/17 09:41 Dose: 40 mg Gabapentin (Neurontin) 100 mg PO BID [facility] Last Admin: 12/15/17 09:41 Dose: 100 mg Insulin Detemir (Levemir) 20 unit SC [facility] Last Admin: 12/14/17 21:54 Dose: 20 unit Lactulose (Enulose) 20 gm PO HS [facility] Last Admin: 12/14/17 21:54 Dose: 20 gm Magnesium Oxide (Mag-Ox) 400 mg PO DAILY [facility] Last Admin: 12/15/17 09:41 Dose: 400 mg Multivitamins (Hexavitamin) 1 tab PO DAILY [facility] Last Admin: 12/15/17 09:44 Dose: 1 tab Mupirocin (Bactroban Ointment) 0 gm EXT BID [facility] Last Admin: 12/15/17 09:42 Dose: 1 oin Pantoprazole Sodium (Protonix Inj) 40 mg IVP Q12H [facility] Last Admin: 12/15/17 05:45 Dose: 40 mg Propranolol HCl (Inderal) 10 mg PO Q12H [facility] Last Admin: 12/15/17 05:45 Dose: 10 mg Rifaximin (Xifaxan) 550 mg PO BID [facility] Last Admin: 12/15/17 09:41 Dose: 550 mg Saccharomyces Boulardii (Florastor) 250 mg PO DAILY [facility] Last Admin: 12/15/17 09:41 Dose: 250 mg Spironolactone (Aldactone) 25 mg PO DAILY [facility] Last Admin: 12/15/17 09:41 Dose: 25 mg Tramadol HCl (Ultram) 50 mg PO Q6 PRN PRN Reason: pain Last Admin: 12/15/17 09:37 Dose: 50 mg Results - Vital Signs Recent Vital Signs: Last Vital Signs Temp 98.3 F 12/14/17 23:15 Pulse 80 12/15/17 08:19 Resp 20 12/14/17 23:15 BP 144/68 12/15/17 09:41 Pulse Ox 97 12/14/17 23:15 - Labs Result Diagrams: 12/14/17 13:43 12/13/17 11:46 Labs: Laboratory Results - last 24 hr 12/14/17 12/14/17 12/14/17 13:43 16:56 21:05 WBC 7.4 D RBC 2.26 L Hgb 8.4 L Hct 23.7 L MCV 104.9 H MCH 37.1 H MCHC 35.3 RDW 19.1 H Plt Count 30 L* MPV 8.4 Neut % (Auto) 88.8 H Lymph % (Auto) 5.6 L Cascade % (Auto) 4.1 Eos % (Auto) 1.3 Baso % (Auto) 0.2 Neut # (Auto) 6.6 Lymph # (Auto) 0.4 L [place] # (Auto) 0.3 Eos # (Auto) 0.1 Baso # (Auto) 0.0 Neutrophils % (Manual) 77 H Band Neutrophils % 15 H* Lymphocytes % (Manual) 6 L Monocytes % (Manual) TEST NOT PERFORMED Eosinophils % (Manual) 2 Platelet Estimate Markedly decreased L Poikilocytosis (manual Slight Basophilic Stippling Slight Anisocytosis (manual) Moderate Macrocytosis (manual) Moderate Ovalocytes Slight POC Glucose (mg/dL) 219 H 207 H 12/15/17 12/15/17 06:18 11:24 WBC RBC Hgb Hct MCV MCH MCHC RDW Plt Count MPV Neut % (Auto) Lymph % (Auto) Cascade % (Auto) Eos % (Auto) Baso % (Auto) Neut # (Auto) Lymph # (Auto) Cascade # (Auto) Eos # (Auto) Baso # (Auto) Neutrophils % (Manual) Band Neutrophils % Lymphocytes % (Manual) Monocytes % (Manual) Eosinophils % (Manual) Platelet Estimate Poikilocytosis (manual Basophilic Stippling Anisocytosis (manual) Macrocytosis (manual) Ovalocytes POC Glucose (mg/dL) 169 H 242 H
--- NOTE | 2017-12-15 14:20 | CP.PCM.PN ---
Subjective - Date & Time of Evaluation Date of Evaluation: 12/15/17 Time of Evaluation: 14:19 Objective - Vital Signs/Intake and Output Vital Signs (last 24 hours): Temp Pulse Resp BP Pulse Ox 98.3 F 80 20 144/68 97 12/14/17 23:15 12/15/17 08:19 12/14/17 23:15 12/15/17 09:41 12/14/17 23:15 Intake and Output: 12/15/17 12/15/17 06:59 18:59 Intake Total 400 Balance 400 - Medications Medications: Current Medications Albuterol/Ipratropium (Duoneb 3 Mg/0.5 Mg (3 Ml) Ud) 3 ml IH RQ6 [facility] Last Admin: 12/15/17 13:29 Dose: 3 ml Ascorbic Acid (Vitamin C 500 Mg Tab) 500 mg PO BID [facility] Last Admin: 12/15/17 09:41 Dose: 500 mg Duloxetine HCl (Cymbalta) 30 mg PO DAILY [facility] Last Admin: 12/15/17 09:41 Dose: 30 mg Famotidine (Pepcid) 20 mg PO DAILY [facility] Last Admin: 12/15/17 09:35 Dose: 20 mg Ferrous Sulfate (Feosol) 325 mg PO DAILY [facility] Last Admin: 12/13/17 10:02 Dose: 325 mg Folic Acid (Folic Acid) 1 mg PO DAILY [facility] Last Admin: 12/15/17 09:36 Dose: 1 mg Furosemide (Lasix) 40 mg PO DAILY [facility] Last Admin: 12/15/17 09:41 Dose: 40 mg Gabapentin (Neurontin) 100 mg PO BID [facility] Last Admin: 12/15/17 09:41 Dose: 100 mg Insulin Detemir (Levemir) 20 unit SC HS [facility] Last Admin: 12/14/17 21:54 Dose: 20 unit Lactulose (Enulose) 20 gm PO HS [facility] Last Admin: 12/14/17 21:54 Dose: 20 gm Magnesium Oxide (Mag-Ox) 400 mg PO DAILY [facility] Last Admin: 12/15/17 09:41 Dose: 400 mg Multivitamins (Hexavitamin) 1 tab PO DAILY [facility] Last Admin: 12/15/17 09:44 Dose: 1 tab Mupirocin (Bactroban Ointment) 0 gm EXT BID [facility] Last Admin: 12/15/17 09:42 Dose: 1 oin Pantoprazole Sodium (Protonix Inj) 40 mg IVP Q12H [facility] Last Admin: 12/15/17 05:45 Dose: 40 mg Propranolol HCl (Inderal) 10 mg PO Q12H [facility] Last Admin: 12/15/17 05:45 Dose: 10 mg Rifaximin (Xifaxan) 550 mg PO BID [facility] Last Admin: 12/15/17 09:41 Dose: 550 mg Saccharomyces Boulardii (Florastor) 250 mg PO DAILY [facility] Last Admin: 12/15/17 09:41 Dose: 250 mg Spironolactone (Aldactone) 25 mg PO DAILY [facility] Last Admin: 12/15/17 09:41 Dose: 25 mg Tramadol HCl (Ultram) 50 mg PO Q6 PRN PRN Reason: pain Last Admin: 12/15/17 09:37 Dose: 50 mg - Labs Labs: 12/14/17 13:43 12/13/17 11:46 PT 21.1 SECONDS (9.7-12.2) H 12/12/17 15:35 INR 1.8 12/12/17 15:35 APTT 44 SECONDS (21-34) H 12/12/17 15:35
--- NOTE | 2017-12-15 17:55 | RAD ---
PROCEDURE: Right Knee Radiographs. HISTORY: Pain. Restricted range of motion right knee COMPARISON: None. FINDINGS: BONES: Current study reveals no evidence of acute displaced fracture nor dislocation. The osseous structures appear grossly intact with no definitive cortical destructive change. Mild diffuse demineralization. JOINTS: Moderate to fairly significant tricompartmental degenerative osteoarthritis. There is joint space narrowing with marginal osteophyte formation. Patellofemoral osteophytes are also present. JOINT EFFUSION: Questionable trace joint effusion OTHER FINDINGS: None. IMPRESSION: No acute fracture seen. JT
--- NOTE | 2017-12-15 17:58 | RAD ---
PROCEDURE: Right Hip Radiographs. HISTORY: Status post ORIF R intertrochanteric femur fx COMPARISON: Comparison made with prior radiographs of the right hip dated 11/13/2017 FINDINGS: BONES: Re- demonstrated are ORIF changes intertrochanteric fracture right hip. . Hardware is intact and appropriately located. JOINTS: Right femoral head is appropriately located within the right acetabulum SOFT TISSUES: Normal. OTHER FINDINGS: None. IMPRESSION: ORIF changes intertrochanteric fracture right CT okay. Heart rate alls of right hip.
[2017-12-15] MEDS: Insulin Detemir 100 units/ml Vial (Levemir) SC SCH (22:11)
[2017-12-16] MEDS: Albuterol-Ipratrop 3 mg / 0.5 (3 ml) UD IH SCH ×4 (01:25→19:44)
[2017-12-16] MEDS: Magnesium Oxide 400 mg Tab UD PO SCH (10:20)
[2017-12-16] MEDS: Multiple Vitamins Tab PO SCH (10:20)
[2017-12-16] MEDS: Saccharomyces Boulardi 250 mg Cap PO SCH (10:21)
[2017-12-16 11:45] LABS: BASO % 0.3 % (0.0-2.0); EOS # 0.1 K/uL (0.0-0.7); EOS % 1.6 % (0.0-4.0); LYMPH # 0.6 K/uL (1.0-4.3); MEAN CELL VOLUME 104.7 fL (81.0-99.0); MEAN CORPUSCULAR HEMOGLOBIN 36.7 pg (27.0-31.0); MEAN CORPUSCULAR HGB CONC 35.1 g/dL (33.0-37.0); MEAN PLATELET VOLUME 8.5 fL (7.2-11.7); MONO # 0.3 K/uL (0.0-0.8); NEUT % 83.1 % (50.0-75.0); NRBC % 0.1 % (0.0-2.0); RBC 2.46 Mil/uL (3.80-5.20); RED CELL DISTRIBUTION WIDTH 18.6 % (11.5-14.5)
[2017-12-16 12:33] LABS: ALB/GLOB RATIO 0.8 (1.0-2.1); ALBUMIN 2.8 g/dL (3.5-5.0); ALT/SGPT 22 U/L (9-52); AST/SGOT 51 U/L (14-36); BLOOD UREA NITROGEN 9 mg/dL (7-17); CALCIUM 9.2 mg/dl (8.6-10.4); GFR AFRICAN-AMERICAN > 60; GFR NON-AFRICAN AMERICAN > 60
--- NOTE | 2017-12-16 14:39 | CP.PCM.PN ---
Subjective - Date & Time of Evaluation Date of Evaluation: 12/16/17 Time of Evaluation: 14:36 - Subjective Subjective: CC: follow up rectal bleed Hgb Stable No rectal bleeding noted C/O generalized pain Objective - Vital Signs/Intake and Output Vital Signs (last 24 hours): Temp Pulse Resp BP Pulse Ox 98.5 F 80 20 130/75 95 12/16/17 07:25 12/16/17 08:01 12/16/17 07:25 12/16/17 10:21 12/16/17 07:25 Intake and Output: 12/16/17 12/16/17 06:59 18:59 Intake Total 500 Balance 500 - Medications Medications: Current Medications Albuterol/Ipratropium (Duoneb 3 Mg/0.5 Mg (3 Ml) Ud) 3 ml RQ6 [facility] Last Admin: 12/16/17 13:00 Dose: 3 ml Ascorbic Acid (Vitamin C 500 Mg Tab) 500 mg PO BID [facility] Last Admin: 12/16/17 10:21 Dose: 500 mg Duloxetine HCl (Cymbalta) 30 mg PO DAILY [facility] Last Admin: 12/16/17 10:23 Dose: 30 mg Famotidine (Pepcid) 20 mg PO DAILY [facility] Last Admin: 12/16/17 10:20 Dose: 20 mg Ferrous Sulfate (Feosol) 325 mg PO DAILY [facility] Last Admin: 12/13/17 10:02 Dose: 325 mg Folic Acid (Folic Acid) 1 mg PO DAILY [facility] Last Admin: 12/16/17 10:21 Dose: 1 mg Furosemide (Lasix) 40 mg PO DAILY [facility] Last Admin: 12/16/17 10:21 Dose: 40 mg Gabapentin (Neurontin) 100 mg PO BID [facility] Last Admin: 12/16/17 10:20 Dose: 100 mg Insulin Detemir (Levemir) 20 unit SC HS [facility] Last Admin: 12/15/17 22:11 Dose: 20 unit Lactulose (Enulose) 20 gm PO HS [facility] Last Admin: 12/15/17 22:11 Dose: 20 gm Magnesium Oxide (Mag-Ox) 400 mg PO DAILY [facility] Last Admin: 12/16/17 10:20 Dose: 400 mg Multivitamins (Hexavitamin) 1 tab PO DAILY [facility] Last Admin: 12/16/17 10:20 Dose: 1 tab Mupirocin (Bactroban Ointment) 0 gm EXT BID [facility] Last Admin: 12/16/17 10:26 Dose: 1 oin Pantoprazole Sodium (Protonix Inj) 40 mg IVP Q12H [facility] Last Admin: 12/16/17 05:48 Dose: 40 mg Propranolol HCl (Inderal) 10 mg PO Q12H [facility] Last Admin: 12/16/17 05:48 Dose: 10 mg Rifaximin (Xifaxan) 550 mg PO BID [facility] Last Admin: 12/16/17 10:23 Dose: 550 mg Saccharomyces Boulardii (Florastor) 250 mg PO DAILY [facility] Last Admin: 12/16/17 10:21 Dose: 250 mg Spironolactone (Aldactone) 25 mg PO DAILY [facility] Last Admin: 12/16/17 10:21 Dose: 25 mg Tramadol HCl (Ultram) 50 mg PO Q6 PRN PRN Reason: pain Last Admin: 12/16/17 12:02 Dose: 50 mg - Labs Labs: 12/16/17 11:37 12/16/17 11:37 PT 21.1 SECONDS (9.7-12.2) H 12/12/17 15:35 INR 1.8 12/12/17 15:35 APTT 44 SECONDS (21-34) H 12/12/17 15:35 - Constitutional Appears: Chronically Ill - Eye Exam Eye Exam: Scleral icterus - Neck Exam Neck Exam: Normal Inspection - Respiratory Exam Respiratory Exam: NORMAL BREATHING PATTERN - Cardiovascular Exam Cardiovascular Exam: REGULAR RHYTHM - GI/Abdominal Exam GI & Abdominal Exam: Soft. absent: Tenderness Assessment and Plan (1) Pancytopenia Assessment & Plan: Chronic/stable Status: Acute (2) Rectal bleeding Assessment & Plan: Stable No GI intervention planned Status: Acute (3) Cirrhosis Assessment & Plan: With ascites, portal HTN, pancytopenia/hypersplenism, encephalopathy rec: follow up with Dr Arguello after discharge Status: Acute (4) Hepatic encephalopathy Assessment & Plan: Rifaximin/Lactulose Status: Acute
--- NOTE | 2017-12-16 19:29 | CP.PCM.PN ---
Subjective - Date & Time of Evaluation Date of Evaluation: 12/16/17 Time of Evaluation: 19:26 - Subjective Subjective: The patient does not report any more bleeding, awake and alert, mostly oriented. C/O some pain in the hip and knee, XRays of both are OK. CBC stable Objective - Vital Signs/Intake and Output Vital Signs (last 24 hours): Temp Pulse Resp BP Pulse Ox 98.4 F 84 18 130/72 95 12/16/17 15:00 12/16/17 16:08 12/16/17 15:00 12/16/17 15:00 12/16/17 15:00 - Medications Medications: Current Medications Albuterol/Ipratropium (Duoneb 3 Mg/0.5 Mg (3 Ml) Ud) 3 ml IH RQ6 [facility] Last Admin: 12/16/17 13:00 Dose: 3 ml Ascorbic Acid (Vitamin C 500 Mg Tab) 500 mg PO BID [facility] Last Admin: 12/16/17 10:21 Dose: 500 mg Duloxetine HCl (Cymbalta) 30 mg PO DAILY [facility] Last Admin: 12/16/17 10:23 Dose: 30 mg Famotidine (Pepcid) 20 mg PO DAILY [facility] Last Admin: 12/16/17 10:20 Dose: 20 mg Ferrous Sulfate (Feosol) 325 mg PO DAILY [facility] Last Admin: 12/13/17 10:02 Dose: 325 mg Folic Acid (Folic Acid) 1 mg PO DAILY [facility] Last Admin: 12/16/17 10:21 Dose: 1 mg Furosemide (Lasix) 40 mg PO DAILY [facility] Last Admin: 12/16/17 10:21 Dose: 40 mg Gabapentin (Neurontin) 100 mg PO BID [facility] Last Admin: 12/16/17 17:37 Dose: 100 mg Insulin Detemir (Levemir) 20 unit SC HS [facility] Last Admin: 12/15/17 22:11 Dose: 20 unit Lactulose (Enulose) 20 gm PO HS [facility] Last Admin: 12/15/17 22:11 Dose: 20 gm Magnesium Oxide (Mag-Ox) 400 mg PO DAILY [facility] Last Admin: 12/16/17 10:20 Dose: 400 mg Multivitamins (Hexavitamin) 1 tab PO DAILY [facility] Last Admin: 12/16/17 10:20 Dose: 1 tab Mupirocin (Bactroban Ointment) 0 gm EXT BID [facility] Last Admin: 12/16/17 10:26 Dose: 1 oin Pantoprazole Sodium (Protonix Inj) 40 mg IVP Q12H [facility] Last Admin: 12/16/17 17:37 Dose: 40 mg Propranolol HCl (Inderal) 10 mg PO Q12H [facility] Last Admin: 12/16/17 17:38 Dose: 10 mg Rifaximin (Xifaxan) 550 mg PO BID [facility] Last Admin: 12/16/17 17:38 Dose: 550 mg Saccharomyces Boulardii (Florastor) 250 mg PO DAILY [facility] Last Admin: 12/16/17 10:21 Dose: 250 mg Spironolactone (Aldactone) 25 mg PO DAILY [facility] Last Admin: 12/16/17 10:21 Dose: 25 mg Tramadol HCl (Ultram) 50 mg PO Q6 PRN PRN Reason: pain Last Admin: 12/16/17 18:20 Dose: 50 mg - Labs Labs: 12/16/17 11:37 12/16/17 11:37 PT 21.1 SECONDS (9.7-12.2) H 12/12/17 15:35 INR 1.8 12/12/17 15:35 APTT 44 SECONDS (21-34) H 12/12/17 15:35 Assessment and Plan (1) Pancytopenia Assessment & Plan: Pancytopenia, secondary to hypersplenism, liver cirrhosis, stable, may return to rehab fron hematology standpoint Status: Acute (2) Pancytopenia Status: Acute
--- NOTE | 2017-12-16 19:31 | CP.PCM.PN ---
Subjective - Date & Time of Evaluation Date of Evaluation: 12/16/17 Time of Evaluation: 10:00 - Subjective Subjective: clinically same Objective - Vital Signs/Intake and Output Vital Signs (last 24 hours): Temp Pulse Resp BP Pulse Ox 98.4 F 84 18 130/72 95 12/16/17 15:00 12/16/17 16:08 12/16/17 15:00 12/16/17 15:00 12/16/17 15:00 - Medications Medications: Current Medications Albuterol/Ipratropium (Duoneb 3 Mg/0.5 Mg (3 Ml) Ud) 3 ml IH RQ6 [facility] Last Admin: 12/16/17 13:00 Dose: 3 ml Ascorbic Acid (Vitamin C 500 Mg Tab) 500 mg PO BID [facility] Last Admin: 12/16/17 10:21 Dose: 500 mg Duloxetine HCl (Cymbalta) 30 mg PO DAILY [facility] Last Admin: 12/16/17 10:23 Dose: 30 mg Famotidine (Pepcid) 20 mg PO DAILY [facility] Last Admin: 12/16/17 10:20 Dose: 20 mg Ferrous Sulfate (Feosol) 325 mg PO DAILY [facility] Last Admin: 12/13/17 10:02 Dose: 325 mg Folic Acid (Folic Acid) 1 mg PO DAILY [facility] Last Admin: 12/16/17 10:21 Dose: 1 mg Furosemide (Lasix) 40 mg PO DAILY [facility] Last Admin: 12/16/17 10:21 Dose: 40 mg Gabapentin (Neurontin) 100 mg PO BID [facility] Last Admin: 12/16/17 17:37 Dose: 100 mg Insulin Detemir (Levemir) 20 unit SC [facility] Last Admin: 12/15/17 22:11 Dose: 20 unit Lactulose (Enulose) 20 gm PO HS [facility] Last Admin: 12/15/17 22:11 Dose: 20 gm Magnesium Oxide (Mag-Ox) 400 mg PO DAILY [facility] Last Admin: 12/16/17 10:20 Dose: 400 mg Multivitamins (Hexavitamin) 1 tab PO DAILY [facility] Last Admin: 12/16/17 10:20 Dose: 1 tab Mupirocin (Bactroban Ointment) 0 gm EXT BID [facility] Last Admin: 12/16/17 10:26 Dose: 1 oin Pantoprazole Sodium (Protonix Inj) 40 mg IVP Q12H [facility] Last Admin: 12/16/17 17:37 Dose: 40 mg Propranolol HCl (Inderal) 10 mg PO Q12H [facility] Last Admin: 12/16/17 17:38 Dose: 10 mg Rifaximin (Xifaxan) 550 mg PO BID [facility] Last Admin: 12/16/17 17:38 Dose: 550 mg Saccharomyces Boulardii (Florastor) 250 mg PO DAILY [facility] Last Admin: 12/16/17 10:21 Dose: 250 mg Spironolactone (Aldactone) 25 mg PO DAILY [facility] Last Admin: 12/16/17 10:21 Dose: 25 mg Tramadol HCl (Ultram) 50 mg PO Q6 PRN PRN Reason: pain Last Admin: 12/16/17 18:20 Dose: 50 mg - Labs Labs: 12/16/17 11:37 12/16/17 11:37 PT 21.1 SECONDS (9.7-12.2) H 12/12/17 15:35 INR 1.8 12/12/17 15:35 APTT 44 SECONDS (21-34) H 12/12/17 15:35 - Constitutional Appears: Well - Head Exam Head Exam: ATRAUMATIC, NORMAL INSPECTION, NORMOCEPHALIC - Eye Exam Eye Exam: EOMI, Normal appearance, PERRL Pupil Exam: NORMAL ACCOMODATION, PERRL - ENT Exam ENT Exam: Mucous Membranes Moist, Normal Exam - Neck Exam Neck Exam: Full ROM, Normal Inspection. absent: Lymphadenopathy - Respiratory Exam Respiratory Exam: Decreased Breath Sounds - Cardiovascular Exam Cardiovascular Exam: REGULAR RHYTHM, +S1, +S2 - GI/Abdominal Exam GI & Abdominal Exam: Soft, Diminished Bowel Sounds - Rectal Exam Rectal Exam: Deferred
[2017-12-16] MEDS: Insulin Detemir 100 units/ml Vial (Levemir) SC SCH (21:49)
[2017-12-17] MEDS: Albuterol-Ipratrop 3 mg / 0.5 (3 ml) UD IH SCH ×3 (01:06→13:33)
[2017-12-17 01:44] VITALS: RESP 20
[2017-12-17 08:07] VITALS: O2SAT 95
--- NOTE | 2017-12-17 08:22 | CP.PCM.PN ---
Subjective - Date & Time of Evaluation Date of Evaluation: 12/17/17 Time of Evaluation: 08:00 - Subjective Subjective: F/U cirrhosis Awake Denies CP, SOB, GARCIA, fever, RB, melena, SZ, hematuria, hemoptysis Objective - Vital Signs/Intake and Output Vital Signs (last 24 hours): Temp Pulse Resp BP Pulse Ox 98.3 F 79 20 137/74 95 12/17/17 08:06 12/17/17 08:06 12/17/17 08:06 12/17/17 08:06 12/17/17 08:06 - Medications Medications: Current Medications Albuterol/Ipratropium (Duoneb 3 Mg/0.5 Mg (3 Ml) Ud) 3 ml IH RQ6 [facility] Last Admin: 12/17/17 07:27 Dose: 3 ml Ascorbic Acid (Vitamin C 500 Mg Tab) 500 mg PO BID [facility] Last Admin: 12/16/17 21:39 Dose: 500 mg Duloxetine HCl (Cymbalta) 30 mg PO DAILY [facility] Last Admin: 12/16/17 10:23 Dose: 30 mg Famotidine (Pepcid) 20 mg PO DAILY [facility] Last Admin: 12/16/17 10:20 Dose: 20 mg Ferrous Sulfate (Feosol) 325 mg PO DAILY [facility] Last Admin: 12/13/17 10:02 Dose: 325 mg Folic Acid (Folic Acid) 1 mg PO DAILY [facility] Last Admin: 12/16/17 10:21 Dose: 1 mg Furosemide (Lasix) 40 mg PO DAILY [facility] Last Admin: 12/16/17 10:21 Dose: 40 mg Gabapentin (Neurontin) 100 mg PO BID [facility] Last Admin: 12/16/17 17:37 Dose: 100 mg Insulin Detemir (Levemir) 20 unit SC [facility] Last Admin: 12/16/17 21:49 Dose: 20 unit Lactulose (Enulose) 20 gm PO HS [facility] Last Admin: 12/16/17 21:39 Dose: 20 gm Magnesium Oxide (Mag-Ox) 400 mg PO DAILY [facility] Last Admin: 12/16/17 10:20 Dose: 400 mg Multivitamins (Hexavitamin) 1 tab PO DAILY [facility] Last Admin: 12/16/17 10:20 Dose: 1 tab Mupirocin (Bactroban Ointment) 0 gm EXT BID [facility] Last Admin: 12/16/17 21:42 Dose: 1 oin Pantoprazole Sodium (Protonix Inj) 40 mg IVP Q12H [facility] Last Admin: 12/17/17 06:42 Dose: 40 mg Propranolol HCl (Inderal) 10 mg PO Q12H [facility] Last Admin: 12/17/17 06:42 Dose: 10 mg Rifaximin (Xifaxan) 550 mg PO BID [facility] Last Admin: 12/16/17 17:38 Dose: 550 mg Saccharomyces Boulardii (Florastor) 250 mg PO DAILY [facility] Last Admin: 12/16/17 10:21 Dose: 250 mg Spironolactone (Aldactone) 25 mg PO DAILY [facility] Last Admin: 12/16/17 10:21 Dose: 25 mg Tramadol HCl (Ultram) 50 mg PO Q6 PRN PRN Reason: pain Last Admin: 12/16/17 18:20 Dose: 50 mg - Labs Labs: 12/16/17 11:37 12/16/17 11:37 PT 21.1 SECONDS (9.7-12.2) H 12/12/17 15:35 INR 1.8 12/12/17 15:35 APTT 44 SECONDS (21-34) H 12/12/17 15:35 - Constitutional Appears: Non-toxic - Neck Exam Neck Exam: absent: Tenderness - Respiratory Exam Respiratory Exam: Clear to Ausculation Bilateral - Cardiovascular Exam Cardiovascular Exam: RRR - GI/Abdominal Exam GI & Abdominal Exam: Soft, Normal Bowel Sounds. absent: Tenderness - Neurological Exam Neurological Exam: Alert, Awake Assessment and Plan (1) Coagulopathy Status: Acute (2) Pancytopenia Status: Acute (3) Rectal bleeding Assessment & Plan: No intervention planned Status: Acute (4) Anemia Status: Acute (5) Cirrhosis Status: Acute (6) Hepatic encephalopathy Assessment & Plan: meds Status: Acute (7) Lower GI bleed Status: Acute
[2017-12-17] MEDS: Saccharomyces Boulardi 250 mg Cap PO SCH (10:13)
[2017-12-17] MEDS: Multiple Vitamins Tab PO SCH (10:13)
[2017-12-17] MEDS: Magnesium Oxide 400 mg Tab UD PO SCH (10:14)
--- NOTE | 2017-12-17 11:52 | CP.PCM.PN ---
Subjective - Date & Time of Evaluation Date of Evaluation: 12/17/17 Time of Evaluation: 11:52 - Subjective Subjective: -PLACE UNDER THE SERVICE OF DR. Jean Marie WINTERS WHILE AT [facility]----CALL DR. WINTERS FOR ADMITTING ORDERS AND WITH BED ASSIGNMENT. -PLEASE ARRANGE FOR MRS. HARRIS TO FOLLOW UP WITH DR. NEVES IN HER OFFICE WITHIN 7-10 DAYS--CALL THE OFFICE FOR APPT AND ARRANGE FOR TRANSPORTATION TO AND FROM [facility] FOR THE APPT. -CONTINUE PHYSICAL THERAPY TOLERATED. -CONTINUE MEDICATIONS PER THE MED REC FORM---CHANGES CAN BE MADE BY DR. Juana WINTERS AT [facility]. -PLEASE MONITOR FOR BLEEDING. IF BLEEDING OR BRUISING ARE NOTED PLEASE INFORM DR. NEVES AND DR. Juana WINTERS IMMEDIATELY. -PLEASE HAVE CBC DRAWN Q WEEK X4 WEEKS. NOTIFY DR. Juana WINTERS OF THE PLATELET LEVEL. -CONTACT DR. WINTERS FOR FURTHER ORDERS. Objective - Vital Signs/Intake and Output Vital Signs (last 24 hours): Temp Pulse Resp BP Pulse Ox 98.3 F 79 20 137/74 95 12/17/17 08:06 12/17/17 08:06 12/17/17 08:06 12/17/17 10:14 12/17/17 08:06 - Medications Medications: Current Medications Albuterol/Ipratropium (Duoneb 3 Mg/0.5 Mg (3 Ml) Ud) 3 ml IH RQ6 [facility] Last Admin: 12/17/17 07:27 Dose: 3 ml Ascorbic Acid (Vitamin C 500 Mg Tab) 500 mg PO BID [facility] Last Admin: 12/17/17 10:15 Dose: 500 mg Duloxetine HCl (Cymbalta) 30 mg PO DAILY [facility] Last Admin: 12/17/17 10:13 Dose: 30 mg Famotidine (Pepcid) 20 mg PO DAILY [facility] Last Admin: 12/17/17 10:14 Dose: 20 mg Ferrous Sulfate (Feosol) 325 mg PO DAILY [facility] Last Admin: 12/13/17 10:02 Dose: 325 mg Folic Acid (Folic Acid) 1 mg PO DAILY [facility] Last Admin: 12/17/17 10:13 Dose: 1 mg Furosemide (Lasix) 40 mg PO DAILY [facility] Last Admin: 12/17/17 10:14 Dose: 40 mg Gabapentin (Neurontin) 100 mg PO BID [facility] Last Admin: 12/17/17 10:14 Dose: 100 mg Insulin Detemir (Levemir) 20 unit SC HS [facility] Last Admin: 12/16/17 21:49 Dose: 20 unit Lactulose (Enulose) 20 gm PO HS [facility] Last Admin: 12/16/17 21:39 Dose: 20 gm Magnesium Oxide (Mag-Ox) 400 mg PO DAILY [facility] Last Admin: 12/17/17 10:14 Dose: 400 mg Multivitamins (Hexavitamin) 1 tab PO DAILY [facility] Last Admin: 12/17/17 10:13 Dose: 1 tab Mupirocin (Bactroban Ointment) 0 gm EXT BID [facility] Last Admin: 12/17/17 10:13 Dose: 1 oin Pantoprazole Sodium (Protonix Inj) 40 mg IVP Q12H [facility] Last Admin: 12/17/17 06:42 Dose: 40 mg Propranolol HCl (Inderal) 10 mg PO Q12H [facility] Last Admin: 12/17/17 06:42 Dose: 10 mg Rifaximin (Xifaxan) 550 mg PO BID [facility] Last Admin: 12/17/17 10:15 Dose: 550 mg Saccharomyces Boulardii (Florastor) 250 mg PO DAILY [facility] Last Admin: 12/17/17 10:13 Dose: 250 mg Spironolactone (Aldactone) 25 mg PO DAILY [facility] Last Admin: 12/17/17 10:13 Dose: 25 mg Tramadol HCl (Ultram) 50 mg PO Q6 PRN PRN Reason: pain Last Admin: 12/17/17 10:37 Dose: 50 mg - Labs Labs: 12/16/17 11:37 12/16/17 11:37 PT 21.1 SECONDS (9.7-12.2) H 12/12/17 15:35 INR 1.8 12/12/17 15:35 APTT 44 SECONDS (21-34) H 12/12/17 15:35
[2017-12-17 15:42] VITALS: BP 134/69; PULSE 81; TEMP 98.5
--- NOTE | 2017-12-17 16:35 | CP.PCM.PN ---
Subjective - Date & Time of Evaluation Date of Evaluation: 12/17/17 Time of Evaluation: 12:00 - Subjective Subjective: clinically same Objective - Vital Signs/Intake and Output Vital Signs (last 24 hours): Temp Pulse Resp BP Pulse Ox 98.5 F 81 20 134/69 95 12/17/17 15:41 12/17/17 15:41 12/17/17 15:41 12/17/17 15:41 12/17/17 15:41 - Medications Medications: Current Medications Albuterol/Ipratropium (Duoneb 3 Mg/0.5 Mg (3 Ml) Ud) 3 ml IH RQ6 [facility] Last Admin: 12/17/17 13:33 Dose: 3 ml Ascorbic Acid (Vitamin C 500 Mg Tab) 500 mg PO BID [facility] Last Admin: 12/17/17 10:15 Dose: 500 mg Duloxetine HCl (Cymbalta) 30 mg PO DAILY [facility] Last Admin: 12/17/17 10:13 Dose: 30 mg Famotidine (Pepcid) 20 mg PO DAILY [facility] Last Admin: 12/17/17 10:14 Dose: 20 mg Ferrous Sulfate (Feosol) 325 mg PO DAILY [facility] Last Admin: 12/13/17 10:02 Dose: 325 mg Folic Acid (Folic Acid) 1 mg PO DAILY [facility] Last Admin: 12/17/17 10:13 Dose: 1 mg Furosemide (Lasix) 40 mg PO DAILY [facility] Last Admin: 12/17/17 10:14 Dose: 40 mg Gabapentin (Neurontin) 100 mg PO BID [facility] Last Admin: 12/17/17 10:14 Dose: 100 mg Insulin Detemir (Levemir) 20 unit SC HS [facility] Last Admin: 12/16/17 21:49 Dose: 20 unit Lactulose (Enulose) 20 gm PO HS [facility] Last Admin: 12/16/17 21:39 Dose: 20 gm Magnesium Oxide (Mag-Ox) 400 mg PO DAILY [facility] Last Admin: 12/17/17 10:14 Dose: 400 mg Multivitamins (Hexavitamin) 1 tab PO DAILY [facility] Last Admin: 12/17/17 10:13 Dose: 1 tab Mupirocin (Bactroban Ointment) 0 gm EXT BID [facility] Last Admin: 12/17/17 10:13 Dose: 1 oin Pantoprazole Sodium (Protonix Inj) 40 mg IVP Q12H [facility] Last Admin: 12/17/17 06:42 Dose: 40 mg Propranolol HCl (Inderal) 10 mg PO Q12H [facility] Last Admin: 12/17/17 06:42 Dose: 10 mg Rifaximin (Xifaxan) 550 mg PO BID [facility] Last Admin: 12/17/17 10:15 Dose: 550 mg Saccharomyces Boulardii (Florastor) 250 mg PO DAILY [facility] Last Admin: 12/17/17 10:13 Dose: 250 mg Spironolactone (Aldactone) 25 mg PO DAILY [facility] Last Admin: 12/17/17 10:13 Dose: 25 mg Tramadol HCl (Ultram) 50 mg PO Q6 PRN PRN Reason: pain Last Admin: 12/17/17 10:37 Dose: 50 mg - Labs Labs: 12/16/17 11:37 12/16/17 11:37 PT 21.1 SECONDS (9.7-12.2) H 12/12/17 15:35 INR 1.8 12/12/17 15:35 APTT 44 SECONDS (21-34) H 12/12/17 15:35 - Constitutional Appears: Well - Head Exam Head Exam: ATRAUMATIC, NORMAL INSPECTION, NORMOCEPHALIC - Eye Exam Eye Exam: EOMI, Normal appearance, PERRL Pupil Exam: NORMAL ACCOMODATION, PERRL - ENT Exam ENT Exam: Mucous Membranes Moist, Normal Exam - Neck Exam Neck Exam: Full ROM, Normal Inspection. absent: Lymphadenopathy - Respiratory Exam Respiratory Exam: Decreased Breath Sounds - Cardiovascular Exam Cardiovascular Exam: REGULAR RHYTHM, +S1, +S2 - GI/Abdominal Exam GI & Abdominal Exam: Soft, Diminished Bowel Sounds - Rectal Exam Rectal Exam: Deferred
== END 2017-12-17 16:59 | DRG 808 ==
LOC: C.ER 13:53 → C.9E 16:47 → C.6T 17:31
PROVIDERS: ADMIT Internal Medicine Nephrology; ATTEND Internal Medicine Nephrology
PROC: 30233R1 Transfusion of Nonautologous Platelets into Peripheral Vein, Percutaneous Approach (ICD-10-PCS; principal; 2017-12-13)
DX: D61.818 Other pancytopenia (principal); K62.5 Hemorrhage of anus and rectum; D68.9 Coagulation defect, unspecified; E87.6 Hypokalemia; E11.40 Type 2 diabetes mellitus with diabetic neuropathy, unspecified; K76.6 Portal hypertension; K72.10 Chronic hepatic failure without coma; B18.2 Chronic viral hepatitis C; I62.03 Nontraumatic chronic subdural hemorrhage; D73.1 Hypersplenism; B19.20 Unspecified viral hepatitis C without hepatic coma; I10 Essential (primary) hypertension; K74.69 Other cirrhosis of liver; J45.909 Unspecified asthma, uncomplicated; M81.0 Age-related osteoporosis without current pathological fracture; G89.21 Chronic pain due to trauma; M25.551 Pain in right hip; M17.0 Bilateral primary osteoarthritis of knee; Z79.4 Long term (current) use of insulin; Z87.891 Personal history of nicotine dependence; Z90.49 Acquired absence of other specified parts of digestive tract

== ENCOUNTER 2018-03-07 20:50 | Inpatient (IN) | payer MEDICARE, MEDICAID ==
[2018-03-07 20:51] VITALS: BMI 24.0
[2018-03-07 21:39] LABS: BASO % 0.3 % (0.0-2.0); EOS % 1.2 % (0.0-4.0); HEMOGLOBIN 8.7 g/dL (11.0-16.0); LYMPH # 0.3 K/uL (1.0-4.3); MEAN CORPUSCULAR HEMOGLOBIN 34.2 pg (27.0-31.0); MEAN CORPUSCULAR HGB CONC 34.6 g/dL (33.0-37.0); MEAN PLATELET VOLUME 9.1 fL (7.2-11.7); MONO % 3.5 % (0.0-10.0); NEUT # 0.7 K/uL (1.8-7.0); NRBC % 0.2 % (0.0-2.0); RBC 2.53 Mil/uL (3.80-5.20)
[2018-03-07 21:40] LABS: WHITE BLOOD COUNT 1.1 K/uL (4.8-10.8)
[2018-03-07 21:52] LABS: ALB/GLOB RATIO 0.7 (1.0-2.1); ALBUMIN 2.2 g/dL (3.5-5.0); ALT/SGPT 38 U/L (9-52); AST/SGOT 89 U/L (14-36); BLOOD UREA NITROGEN 16 mg/dL (7-17); CALCIUM 8.2 mg/dl (8.6-10.4); GFR AFRICAN-AMERICAN > 60; GFR NON-AFRICAN AMERICAN > 60
[2018-03-07 22:04] LABS: B-TYPE NATRIURETIC PEPTIDE 261 pg/mL (0-900)
--- NOTE | 2018-03-07 22:05 | C.PDOC ---
History Of Present Illness 71 y/o female [facility] for abnormal labs and pancytopenia. Denies any other physical complaints. Time Seen by Provider: 03/07/18 21:20 Chief Complaint (Nursing): Abnormal Labs History Per: Patient History/Exam Limitations: no limitations Onset/Duration Of Symptoms: Hrs Current Symptoms Are (Timing): Still Present Recent travel outside of the [place]: No Past Medical History Reviewed: Historical Data, Nursing Documentation, Vital Signs Vital Signs: Last Vital Signs Temp 98 F 03/07/18 22:50 Pulse 78 03/07/18 22:50 Resp 18 03/07/18 22:50 BP 111/63 03/07/18 22:50 Pulse Ox 98 03/07/18 22:50 - Medical History PMH: Anemia (with Pancytopenia), Anxiety, Arthritis (L KNEE SEVERE OA), Asthma, Bronchitis, Crohn's Disease, Depression, Diabetes, Diverticulitis, Fractures ( right hip), Gastritis, Gall Bladder Disease, Hepatitis (C), HTN, Osteoporosis, Chronic Pain Surgical History: Appendectomy, Cholecystectomy - [facility] Procedures CORONAR ARTERIOGR-2 CATH (08/02/15) INSERTION OF INFUSION DEV INTO SUP VENA CAVA, PERC APPROACH (07/15/17) INSPECTION OF LOWER INTESTINAL TRACT, ENDO (07/11/16) LEFT HEART CARDIAC CATH (08/02/15) LT HEART ANGIOCARDIOGRAM (08/02/15) OTHER ENDOSCOPY OF SM INTEST (07/09/13) REPOSITION R UP FEMUR WITH INTRAMED FIX, PERC APPROACH (11/08/17) TRANSFUSE NONAUT FRESH PLASMA IN PERIPH VEIN, PERC (11/08/17) TRANSFUSE NONAUT FROZEN PLASMA IN PERIPH VEIN, PERC (11/08/17) TRANSFUSE NONAUT PLATELETS IN PERIPH VEIN, PERC (12/12/17) TRANSFUSE NONAUT RED BLOOD CELLS IN PERIPH VEIN, PERC (11/08/17) VACCINATION NEC (07/16/14) Family History: States: Unknown Family Hx - Social History Hx Tobacco Use: No Hx Alcohol Use: No Hx Substance Use: No - Immunization History Hx Tetanus Toxoid Vaccination: No (NOT SURE) Hx Influenza Vaccination: No Hx Pneumococcal Vaccination: No Review Of Systems Constitutional: Negative for: Fever, Chills Cardiovascular: Negative for: Chest Pain Respiratory: Negative for: Shortness of Breath Gastrointestinal: Negative for: Nausea, Vomiting, Abdominal Pain, Diarrhea Skin: Negative for: Rash Neurological: Negative for: Weakness, Numbness Physical Exam - Physical Exam Appears: Well, Non-toxic, No Acute Distress, Chronically Ill Skin: Warm, Dry, Pale Head: Normacephalic Eye(s): bilateral: Normal Inspection Oral Mucosa: Moist Neck: Supple Chest: Symmetrical, No Tenderness Cardiovascular: Rhythm Regular Respiratory: Normal Breath Sounds, No Decreased Breath Sounds, No Rales, No Rhonchi, No Wheezing Gastrointestinal/Abdominal: Soft, No Tenderness Extremity: Normal ROM, No Tenderness, Pedal Edema (Mild), No Deformity Extremity: Bilateral: Normal Color And Temperature, Normal ROM Neurological/Psych: Oriented x3, Normal Speech, Normal Cognition, Other (no focal deficit ) Gait: Steady ED Course And Treatment - Laboratory Results Result Diagrams: 03/07/18 21:33 03/07/18 21:33 Lab Interpretation: Abnormal (+ pancytopenia, no UTI) ECG: Interpreted By Me ECG Rhythm: Sinus Rhythm ECG Interpretation: Normal Rate From EC O2 Sat by Pulse Oximetry: 97 (RA) Pulse Ox Interpretation: Normal - Radiology CXR: Interpreted by Me CXR Interpretation: Yes: No Acute Disease Progress Note: IVF Reevaluation Time: 22:05 Reassessment Condition: Improved - Physician Consult Information Outcome Of Conversation: [id number], [id number]: d/w PMD, Dr. Jean Marie Coronado, ok to admit. defer abx for boarderline neutropenia as pt without neutropenic fevers. Medical Decision Making Medical Decision Making: Administered Feosol, Folic acid, Florastor, hexavitamin, inderal, lasix, ultram , levemir, and novolin. Ordered CXR, blood work, urinalysis, BBK, and EKG. Discussed with Dr.J. Coronado at 9:20PM for admission. Disposition Doctor Will See Patient In The: Hospital Counseled Patient/Family Regarding: Studies Performed, Diagnosis - Disposition Disposition: HOSPITALIZED Disposition Time: 22:11 Condition: GOOD - Clinical Impression Clinical Impression: Pancytopenia, Neutropenia - Scribe Statement The provider has reviewed the documentation as recorded by the Agathaibrylie Kimball All medical record entries made by the Scribe were at my direction and personally dictated by me. I have reviewed the chart and agree that the record accurately reflects my personal performance of the history, physical exam, medical decision making, and the department course for this patient. I have also personally directed, reviewed, and agree with the discharge instructions and disposition.
--- NOTE | 2018-03-07 23:58 | CP.PCM.HP ---
Past Patient History - Infectious Disease Hx of Infectious Diseases: None - Past Medical History & Family History Past Medical History?: Yes - Past Social History Smoking Status: Former Smoker - CARDIAC Hx Hypertension: Yes - PULMONARY Hx Asthma: Yes Hx Bronchitis: Yes - NEUROLOGICAL Other/Comment: SEVERE NEUROPATHY, hepatic encephalopathy. subdural hematoma - HEENT Hx HEENT Problems: Yes Other/Comment: Dimished vision bilateral - RENAL Hx Chronic Kidney Disease: No - ENDOCRINE/METABOLIC Hx Endocrine Disorders: Yes Hx Diabetes Mellitus Type 1: Yes Hx Diabetes Mellitus Type 2: Yes - HEMATOLOGICAL/ONCOLOGICAL Hx Anemia: Yes (with Pancytopenia) - INTEGUMENTARY Hx Psoriasis: Yes - MUSCULOSKELETAL/RHEUMATOLOGICAL Hx Arthritis: Yes (L KNEE SEVERE OA) Hx Fractures: Yes (right hip) Hx Osteoporosis: Yes - GASTROINTESTINAL Hx Crohn's Disease: Yes Hx Diverticulitis: Yes Hx Gall Bladder Disease: Yes Hx Gastritis: Yes - GENITOURINARY/GYNECOLOGICAL Hx Genitourinary Disorders: No - PSYCHIATRIC Hx Anxiety: Yes Hx Depression: Yes Hx Substance Use: No - SURGICAL HISTORY Hx Appendectomy: Yes Hx Cholecystectomy: Yes - ANESTHESIA Hx Anesthesia: Yes Hx Anesthesia Reactions: No Hx Malignant Hyperthermia: No Meds Allergies/Adverse Reactions: Allergies Allergy/AdvReac Type Severity Reaction Status Date / Time acetaminophen [From Percocet] Allergy RASH Verified 11/08/17 20:36 aspirin Allergy RASH Verified 11/08/17 20:36 oxycodone HCl [From Percocet] Allergy RASH Verified 11/08/17 20:36 Penicillins Allergy RASH Verified 11/08/17 20:36 PAIN MEDICATIONS Allergy Uncoded 11/08/17 20:36 Results - Vital Signs Recent Vital Signs: Last Vital Signs Temp 98 F 03/07/18 22:50 Pulse 78 03/07/18 22:50 Resp 18 03/07/18 22:50 BP 111/63 03/07/18 22:50 Pulse Ox 98 03/07/18 22:50 - Labs Result Diagrams: 03/07/18 21:33 03/07/18 21:33 Labs: Laboratory Results - last 24 hr 03/07/18 03/07/18 03/07/18 21:33 21:33 22:04 WBC 1.1 L* D RBC 2.53 L Hgb 8.7 L Hct 25.1 L MCV 99.0 D MCH 34.2 H MCHC 34.6 RDW 16.0 H Plt Count 32 L MPV 9.1 Neut % (Auto) 63.0 Lymph % (Auto) 32.0 M[place]re[place] % (Auto) 3.5 Eos % (Auto) 1.2 Baso % (Auto) 0.3 Neut # (Auto) 0.7 L Lymph # (Auto) 0.3 L [place]ary # (Auto) 0.0 Eos # (Auto) 0.0 Baso # (Auto) 0.0 Sodium 140 Potassium 4.3 Chloride 101 Carbon Dioxide 32 H Anion Gap 12 BUN 16 Creatinine 0.6 L Est GFR ( Amer) > 60 Est GFR (Non-Af Amer) > 60 Random Glucose 266 H Calcium 8.2 L Total Bilirubin 5.6 H AST 89 H D ALT 38 Alkaline Phosphatase 142 H Troponin I 0.0180 NT-Pro-B Natriuret Pep 261 Total Protein 5.6 L Albumin 2.2 L D Globulin 3.4 Albumin/Globulin Ratio 0.7 L Blood Type O POSITIVE Antibody Screen Positive Antibody Identification Anti E
[2018-03-08] MEDS: (Novolin R) Insulin Human Regular 100 units/ml vial SC SCH ×4 (08:30→22:00)
--- NOTE | 2018-03-08 08:57 | CP.PCM.CON ---
History of Present Illness - History of Present Illness History of Present Illness: cc: Pancytopenia 72 year old woman well known to me, admitted from [place] for "abnormal Labwork". Patient is confused and can not provide meaningful history. Patient has cheonic pancytopenia due to advanced decompensted cirrhosis with portal hypertension and hypersplenism. No reproted rectal bleeding or other symptoms of GI bleeding noted. Review of Systems - Review of Systems Systems not reviewed;Unavailable: Altered Mental Status Past Patient History - Infectious Disease Hx of Infectious Diseases: None - Past Medical History & Family History Past Medical History?: Yes - Past Social History Smoking Status: Former Smoker - CARDIAC Hx Hypertension: Yes - PULMONARY Hx Asthma: Yes Hx Bronchitis: Yes - NEUROLOGICAL Other/Comment: SEVERE NEUROPATHY, hepatic encephalopathy. subdural hematoma - HEENT Hx HEENT Problems: Yes Other/Comment: Dimished vision bilateral - RENAL Hx Chronic Kidney Disease: No - ENDOCRINE/METABOLIC Hx Endocrine Disorders: Yes Hx Diabetes Mellitus Type 1: Yes Hx Diabetes Mellitus Type 2: Yes - HEMATOLOGICAL/ONCOLOGICAL Hx Anemia: Yes (with Pancytopenia) - INTEGUMENTARY Hx Psoriasis: Yes - MUSCULOSKELETAL/RHEUMATOLOGICAL Hx Arthritis: Yes (L KNEE SEVERE OA) Hx Fractures: Yes (right hip) Hx Osteoporosis: Yes - GASTROINTESTINAL Hx Crohn's Disease: Yes Hx Diverticulitis: Yes Hx Gall Bladder Disease: Yes Hx Gastritis: Yes - GENITOURINARY/GYNECOLOGICAL Hx Genitourinary Disorders: No - PSYCHIATRIC Hx Anxiety: Yes Hx Depression: Yes Hx Substance Use: No - SURGICAL HISTORY Hx Appendectomy: Yes Hx Cholecystectomy: Yes - ANESTHESIA Hx Anesthesia: Yes Hx Anesthesia Reactions: No Hx Malignant Hyperthermia: No Meds Allergies/Adverse Reactions: Allergies Allergy/AdvReac Type Severity Reaction Status Date / Time acetaminophen [From Percocet] Allergy RASH Verified 11/08/17 20:36 aspirin Allergy RASH Verified 11/08/17 20:36 oxycodone HCl [From Percocet] Allergy RASH Verified 11/08/17 20:36 Penicillins Allergy RASH Verified 11/08/17 20:36 PAIN MEDICATIONS Allergy Uncoded 11/08/17 20:36 - Medications Medications: Current Medications Ferrous Sulfate (Feosol) 325 mg PO DAILY [facility] Folic Acid (Folic Acid) 1 mg PO DAILY [facility] Furosemide (Lasix) 40 mg PO DAILY [facility] Insulin Detemir (Levemir) 20 unit SC HS [facility] Insulin Human Regular (Novolin R) 0 unit SC ACHS [facility] PRN Reason: Protocol Last Admin: 03/08/18 08:30 Dose: Not Given Multivitamins (Hexavitamin) 1 tab PO DAILY [facility] Propranolol HCl (Inderal) 10 mg PO Q12H [facility] Saccharomyces Boulardii (Florastor) 250 mg PO DAILY [facility] Tramadol HCl (Ultram) 50 mg PO Q6 PRN PRN Reason: pain Physical Exam - Constitutional Appears: Confused, Chronically Ill - Head Exam Head Exam: NORMOCEPHALIC - Eye Exam Eye Exam: Scleral icterus - Neck Exam Neck exam: Positive for: Normal Inspection - Respiratory Exam Respiratory Exam: NORMAL BREATHING PATTERN - Cardiovascular Exam Cardiovascular Exam: REGULAR RHYTHM - GI/Abdominal Exam GI & Abdominal Exam: Soft. absent: Mass, Organomegaly, Tenderness - Extremities Exam Extremities exam: Positive for: normal inspection - Neurological Exam Neurological exam: Alert (Disoriented. Can follow simple commands. With tongue fasciculations or asterixis) Results - Vital Signs Recent Vital Signs: Last Vital Signs Temp 97.8 F 03/08/18 08:29 Pulse 91 H 03/08/18 08:29 Resp 18 03/08/18 08:29 BP 106/57 L 03/08/18 08:29 Pulse Ox 98 03/08/18 08:29 - Labs Result Diagrams: 03/07/18 21:33 03/07/18 21:33 Labs: Laboratory Results - last 24 hr 03/07/18 03/07/18 03/07/18 21:33 21:33 22:04 WBC 1.1 L* D RBC 2.53 L Hgb 8.7 L Hct 25.1 L MCV 99.0 D MCH 34.2 H MCHC 34.6 RDW 16.0 H Plt Count 32 L MPV 9.1 Neut % (Auto) 63.0 Lymph % (Auto) 32.0 [place] % (Auto) 3.5 Eos % (Auto) 1.2 Baso % (Auto) 0.3 Neut # (Auto) 0.7 L Lymph # (Auto) 0.3 L [place] # (Auto) 0.0 Eos # (Auto) 0.0 Baso # (Auto) 0.0 Sodium 140 Potassium 4.3 Chloride 101 Carbon Dioxide 32 H Anion Gap 12 BUN 16 Creatinine 0.6 L Est GFR ( Amer) > 60 Est GFR (Non-Af Amer) > 60 POC Glucose (mg/dL) Random Glucose 266 H Calcium 8.2 L Total Bilirubin 5.6 H AST 89 H D ALT 38 Alkaline Phosphatase 142 H Troponin I 0.0180 NT-Pro-B Natriuret Pep 261 Total Protein 5.6 L Albumin 2.2 L D Globulin 3.4 Albumin/Globulin Ratio 0.7 L Blood Type O POSITIVE Antibody Screen Positive Antibody Identification Anti E 03/08/18 06:43 WBC RBC Hgb Hct MCV MCH MCHC RDW Plt Count MPV Neut % (Auto) Lymph % (Auto) [place] % (Auto) Eos % (Auto) Baso % (Auto) Neut # (Auto) Lymph # (Auto) [place] # (Auto) Eos # (Auto) Baso # (Auto) Sodium Potassium Chloride Carbon Dioxide Anion Gap BUN Creatinine Est GFR ( Amer) Est GFR (Non-Af Amer) POC Glucose (mg/dL) 233 H Random Glucose Calcium Total Bilirubin AST ALT Alkaline Phosphatase Troponin I NT-Pro-B Natriuret Pep Total Protein Albumin Globulin Albumin/Globulin Ratio Blood Type Antibody Screen Antibody Identification Assessment & Plan (1) Pancytopenia Assessment and Plan: Due to Cirrhosis and hypersplenism. Chronic issue. Not a GI issue. rec: Follow recommendations of [facility] Status: Acute (2) Cirrhosis Assessment and Plan: Decompensated. Portal HTN. MELD = 20, poor prognosis Followed by [facility], Dr Arguello. Patient should return to [facility] for outpatient follow up after discharge. No acute inpatient intervention is needed Status: Acute
[2018-03-08] MEDS: Multiple Vitamins Tab PO SCH (09:53)
[2018-03-08] MEDS: Saccharomyces Boulardi 250 mg Cap PO SCH (09:54)
--- NOTE | 2018-03-08 16:26 | RAD ---
PROCEDURE: CHEST RADIOGRAPH, 1 VIEW HISTORY: SOB COMPARISON: Comparison chest radiograph and CTA chest both dated dated 11/15/2017 FINDINGS: LUNGS: There are mild residual consolidation changes in the left and to a lesser degree right lung base. PLEURA: No pneumothorax or pleural fluid seen. CARDIOVASCULAR: Normal. OSSEOUS STRUCTURES: No significant abnormalities. VISUALIZED UPPER ABDOMEN: Normal. OTHER FINDINGS: None. IMPRESSION: There are mild residual consolidation changes in the left and to a lesser degree right lung base.
--- NOTE | 2018-03-08 18:09 | CP.PCM.PN ---
Subjective - Date & Time of Evaluation Date of Evaluation: 03/08/18 Time of Evaluation: 08:00 - Subjective Subjective: clinically same Objective - Vital Signs/Intake and Output Vital Signs (last 24 hours): Temp Pulse Resp BP Pulse Ox 98.5 F 88 18 114/64 98 03/08/18 15:00 03/08/18 15:00 03/08/18 15:00 03/08/18 15:00 03/08/18 15:00 - Medications Medications: Current Medications Ferrous Sulfate (Feosol) 325 mg PO DAILY [facility] Last Admin: 03/08/18 09:54 Dose: 325 mg Folic Acid (Folic Acid) 1 mg PO DAILY [facility] Last Admin: 03/08/18 09:54 Dose: 1 mg Furosemide (Lasix) 40 mg PO DAILY [facility] Last Admin: 03/08/18 09:54 Dose: 40 mg Insulin Detemir (Levemir) 20 unit SC HS [facility] Insulin Human Regular (Novolin R) 0 unit SC ACHS [facility] PRN Reason: Protocol Last Admin: 03/08/18 12:10 Dose: 3 unit Multivitamins (Hexavitamin) 1 tab PO DAILY [facility] Last Admin: 03/08/18 09:53 Dose: 1 tab Propranolol HCl (Inderal) 10 mg PO Q12H [facility] Last Admin: 03/08/18 12:30 Dose: 10 mg Saccharomyces Boulardii (Florastor) 250 mg PO DAILY [facility] Last Admin: 03/08/18 09:54 Dose: 250 mg Tramadol HCl (Ultram) 50 mg PO Q6 PRN PRN Reason: pain - Labs Labs: 03/07/18 21:33 03/07/18 21:33 - Constitutional Appears: Well - Head Exam Head Exam: ATRAUMATIC, NORMAL INSPECTION, NORMOCEPHALIC - Eye Exam Eye Exam: EOMI, Normal appearance, PERRL Pupil Exam: NORMAL ACCOMODATION, PERRL - ENT Exam ENT Exam: Mucous Membranes Moist, Normal Exam - Respiratory Exam Respiratory Exam: Decreased Breath Sounds - Cardiovascular Exam Cardiovascular Exam: REGULAR RHYTHM, +S1, +S2 - GI/Abdominal Exam GI & Abdominal Exam: Soft, Diminished Bowel Sounds - Rectal Exam Rectal Exam: Deferred
[2018-03-08] MEDS: Insulin Detemir 100 units/ml Vial (Levemir) SC SCH (21:40)
[2018-03-09 08:19] LABS: INR 1.6; PROTHROMBIN TIME 18.2 SECONDS (9.7-12.2)
[2018-03-09 08:20] LABS: BASO % 0.4 % (0.0-2.0); EOS % 1.6 % (0.0-4.0); HEMOGLOBIN 9.1 g/dL (11.0-16.0); LYMPH # 0.3 K/uL (1.0-4.3); MEAN CELL VOLUME 97.2 fL (81.0-99.0); MEAN CORPUSCULAR HEMOGLOBIN 34.9 pg (27.0-31.0); MEAN CORPUSCULAR HGB CONC 35.9 g/dL (33.0-37.0); MEAN PLATELET VOLUME 8.6 fL (7.2-11.7); MONO % 4.4 % (0.0-10.0); NEUT # 0.6 K/uL (1.8-7.0); NEUT % 64.6 % (50.0-75.0); RBC 2.61 Mil/uL (3.80-5.20); RED CELL DISTRIBUTION WIDTH 15.9 % (11.5-14.5)
[2018-03-09] MEDS: (Novolin R) Insulin Human Regular 100 units/ml vial SC SCH ×4 (08:20→21:29)
[2018-03-09 08:42] LABS: ALB/GLOB RATIO 0.6 (1.0-2.1); ALBUMIN 2.2 g/dL (3.5-5.0); ALT/SGPT 33 U/L (9-52); AST/SGOT 78 U/L (14-36); BLOOD UREA NITROGEN 12 mg/dL (7-17); CALCIUM 8.5 mg/dl (8.6-10.4); GFR AFRICAN-AMERICAN > 60; GFR NON-AFRICAN AMERICAN > 60
[2018-03-09] MEDS: Multiple Vitamins Tab PO SCH (10:32)
[2018-03-09] MEDS: Saccharomyces Boulardi 250 mg Cap PO SCH (10:32)
--- NOTE | 2018-03-09 11:44 | CP.PCM.PN ---
Subjective - Date & Time of Evaluation Date of Evaluation: 03/09/18 Time of Evaluation: 11:42 - Subjective Subjective: CC: follow up cirrhosis with pancytopenia Unchanged. No overt blood losses. Objective - Vital Signs/Intake and Output Vital Signs (last 24 hours): Temp Pulse Resp BP Pulse Ox 97.9 F 80 20 126/60 98 03/09/18 09:16 03/09/18 09:16 03/09/18 09:16 03/09/18 10:32 03/09/18 09:16 Intake and Output: 03/09/18 03/09/18 06:59 18:59 Intake Total 240 Balance 240 - Medications Medications: Current Medications Ferrous Sulfate (Feosol) 325 mg PO DAILY [facility] Last Admin: 03/09/18 10:32 Dose: 325 mg Folic Acid (Folic Acid) 1 mg PO DAILY [facility] Last Admin: 03/09/18 10:32 Dose: 1 mg Furosemide (Lasix) 40 mg PO DAILY [facility] Last Admin: 03/09/18 10:32 Dose: 40 mg Insulin Detemir (Levemir) 20 unit SC HS [facility] Last Admin: 03/08/18 21:40 Dose: 20 unit Insulin Human Regular (Novolin R) 0 unit SC ACHS [facility] PRN Reason: Protocol Last Admin: 03/09/18 08:20 Dose: 1 unit Multivitamins (Hexavitamin) 1 tab PO DAILY [facility] Last Admin: 03/09/18 10:32 Dose: 1 tab Propranolol HCl (Inderal) 10 mg PO Q12H [facility] Last Admin: 03/09/18 01:00 Dose: 10 mg Saccharomyces Boulardii (Florastor) 250 mg PO DAILY [facility] Last Admin: 03/09/18 10:32 Dose: 250 mg Tramadol HCl (Ultram) 50 mg PO Q6 PRN PRN Reason: pain - Labs Labs: 03/09/18 08:04 03/09/18 08:04 PT 18.2 SECONDS (9.7-12.2) H 03/09/18 08:04 INR 1.6 03/09/18 08:04 - Constitutional Appears: Chronically Ill - Head Exam Head Exam: NORMOCEPHALIC - Eye Exam Eye Exam: Scleral icterus - Respiratory Exam Respiratory Exam: Clear to Ausculation Bilateral - Cardiovascular Exam Cardiovascular Exam: REGULAR RHYTHM - GI/Abdominal Exam GI & Abdominal Exam: Soft. absent: Distended, Tenderness - Extremities Exam Extremities Exam: Normal Inspection. 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 Followed by [employer] Dion aded to regimen Status: Acute
--- NOTE | 2018-03-09 15:20 | CP.PCM.PN ---
Subjective - Date & Time of Evaluation Date of Evaluation: 03/09/18 Time of Evaluation: 09:20 - Subjective Subjective: clinically same Objective - Vital Signs/Intake and Output Vital Signs (last 24 hours): Temp Pulse Resp BP Pulse Ox 97.9 F 80 20 126/60 98 03/09/18 09:16 03/09/18 09:16 03/09/18 09:16 03/09/18 10:32 03/09/18 09:16 Intake and Output: 03/09/18 03/09/18 06:59 18:59 Intake Total 240 Balance 240 - Medications Medications: Current Medications Ferrous Sulfate (Feosol) 325 mg PO DAILY [facility] Last Admin: 03/09/18 10:32 Dose: 325 mg Folic Acid (Folic Acid) 1 mg PO DAILY [facility] Last Admin: 03/09/18 10:32 Dose: 1 mg Furosemide (Lasix) 40 mg PO DAILY [facility] Last Admin: 03/09/18 10:32 Dose: 40 mg Insulin Detemir (Levemir) 20 unit SC HS [facility] Last Admin: 03/08/18 21:40 Dose: 20 unit Insulin Human Regular (Novolin R) 0 unit SC ACHS [facility] PRN Reason: Protocol Last Admin: 03/09/18 12:30 Dose: 4 unit Multivitamins (Hexavitamin) 1 tab PO DAILY [facility] Last Admin: 03/09/18 10:32 Dose: 1 tab Propranolol HCl (Inderal) 10 mg PO Q12H [facility] Last Admin: 03/09/18 12:05 Dose: 10 mg Saccharomyces Boulardii (Florastor) 250 mg PO DAILY [facility] Last Admin: 03/09/18 10:32 Dose: 250 mg Tramadol HCl (Ultram) 50 mg PO Q6 PRN PRN Reason: pain - Labs Labs: 03/09/18 08:04 03/09/18 08:04 PT 18.2 SECONDS (9.7-12.2) H 03/09/18 08:04 INR 1.6 03/09/18 08:04 - Constitutional Appears: Well - Head Exam Head Exam: ATRAUMATIC, NORMAL INSPECTION, NORMOCEPHALIC - Eye Exam Eye Exam: EOMI, Normal appearance, PERRL Pupil Exam: NORMAL ACCOMODATION, PERRL - ENT Exam ENT Exam: Mucous Membranes Moist, Normal Exam - Neck Exam Neck Exam: Full ROM, Normal Inspection. absent: Lymphadenopathy - Respiratory Exam Respiratory Exam: Decreased Breath Sounds - Cardiovascular Exam Cardiovascular Exam: REGULAR RHYTHM, +S1, +S2 - GI/Abdominal Exam GI & Abdominal Exam: Soft, Diminished Bowel Sounds - Rectal Exam Rectal Exam: Deferred
[2018-03-09] MEDS: Albuterol-Ipratrop 3 mg / 0.5 (3 ml) UD IH SCH (21:08)
[2018-03-09] MEDS: Insulin Detemir 100 units/ml Vial (Levemir) SC SCH (21:29)
[2018-03-10] MEDS: Albuterol-Ipratrop 3 mg / 0.5 (3 ml) UD IH SCH ×4 (02:29→20:33)
[2018-03-10] MEDS: (Novolin R) Insulin Human Regular 100 units/ml vial SC SCH ×4 (08:19→21:08)
[2018-03-10] MEDS: Multiple Vitamins Tab PO SCH ×2 (10:00→10:37)
[2018-03-10] MEDS: Saccharomyces Boulardi 250 mg Cap PO SCH ×2 (10:00→10:37)
[2018-03-10 12:22] LABS: BASO % 0.9 % (0.0-2.0); EOS % 1.5 % (0.0-4.0); LYMPH # 0.4 K/uL (1.0-4.3); LYMPH % 25.1 % (20.0-40.0); MEAN CELL VOLUME 97.2 fL (81.0-99.0); MEAN CORPUSCULAR HEMOGLOBIN 34.7 pg (27.0-31.0); MEAN CORPUSCULAR HGB CONC 35.7 g/dL (33.0-37.0); MEAN PLATELET VOLUME 9.2 fL (7.2-11.7); MONO # 0.1 K/uL (0.0-0.8); MONO % 5.7 % (0.0-10.0); NEUT # 1.1 K/uL (1.8-7.0); NEUT % 66.8 % (50.0-75.0); NRBC % 0.1 % (0.0-2.0); RBC 2.88 Mil/uL (3.80-5.20); RED CELL DISTRIBUTION WIDTH 15.8 % (11.5-14.5)
[2018-03-10 12:31] LABS: WHITE BLOOD COUNT 1.7 K/uL (4.8-10.8)
[2018-03-10 12:32] LABS: BLOOD UREA NITROGEN 12 mg/dL (7-17); CALCIUM 8.7 mg/dl (8.6-10.4); GFR AFRICAN-AMERICAN > 60; GFR NON-AFRICAN AMERICAN > 60
--- NOTE | 2018-03-10 14:59 | CP.PCM.PN ---
Subjective - Date & Time of Evaluation Date of Evaluation: 03/10/18 Time of Evaluation: 14:57 - Subjective Subjective: CC: follow up encephalopathy Lethargic today. Objective - Vital Signs/Intake and Output Vital Signs (last 24 hours): Temp Pulse Resp BP Pulse Ox 97.4 F L 98 H 18 131/55 L 100 03/10/18 07:00 03/10/18 07:00 03/10/18 07:00 03/10/18 07:00 03/10/18 07:00 Intake and Output: 03/10/18 03/10/18 06:59 18:59 Intake Total 0 Balance 0 - Medications Medications: Current Medications Albuterol/Ipratropium (Duoneb 3 Mg/0.5 Mg (3 Ml) Ud) 3 ml IH RQ6 [facility] Last Admin: 03/10/18 13:48 Dose: Not Given Ferrous Sulfate (Feosol) 325 mg PO DAILY [facility] Last Admin: 03/10/18 10:00 Dose: Not Given Folic Acid (Folic Acid) 1 mg PO DAILY [facility] Last Admin: 03/10/18 10:00 Dose: Not Given Furosemide (Lasix) 40 mg PO DAILY [facility] Last Admin: 03/10/18 10:00 Dose: Not Given Insulin Detemir (Levemir) 20 unit SC HS [facility] Last Admin: 03/09/18 21:29 Dose: Not Given Insulin Human Regular (Novolin R) 0 unit SC ACHS [facility] PRN Reason: Protocol Last Admin: 03/10/18 12:30 Dose: 3 unit Lactulose (Enulose) 20 gm PO TID [facility] Lactulose (Generlac) 200 gm [place] ONCE ONE Stop: 03/10/18 14:52 Multivitamins (Hexavitamin) 1 tab PO DAILY [facility] Last Admin: 03/10/18 10:00 Dose: Not Given Propranolol HCl (Inderal) 10 mg PO Q12H [facility] Last Admin: 03/10/18 14:24 Dose: Not Given Saccharomyces Boulardii (Florastor) 250 mg PO DAILY [facility] Last Admin: 03/10/18 10:00 Dose: Not Given Tramadol HCl (Ultram) 50 mg PO Q6 PRN PRN Reason: pain - Labs Labs: 03/10/18 11:41 03/10/18 11:41 PT 18.2 SECONDS (9.7-12.2) H 03/09/18 08:04 INR 1.6 03/09/18 08:04 - Constitutional Appears: Other (Obtunded, not arousable) - Respiratory Exam Respiratory Exam: NORMAL BREATHING PATTERN - Cardiovascular Exam Cardiovascular Exam: REGULAR RHYTHM - GI/Abdominal Exam GI & Abdominal Exam: Soft. absent: Tenderness Assessment and Plan (1) Pancytopenia Assessment & Plan: chronic No intervention planned by GI Status: Acute (2) Cirrhosis Assessment & Plan: Now encephalopathic, despite my Rifaximin order yesterday. Will start Lactulose and monitor closely MELD=18 Poor prognosis Status: Acute
--- NOTE | 2018-03-10 15:35 | CP.PCM.PN ---
<Samantha Farias - Last Filed: 03/10/18 15:29> Subjective - Date & Time of Evaluation Date of Evaluation: 03/10/18 Time of Evaluation: 15:30 - Subjective Subjective: PGY [address] Coronado Pt seen and examined. Patient has AMS this am due to hyperammonia. Patient denies having any CP, SOB, abd pain. Patient is febrile overnight. Per nurse, pt is not swallowing any pills. Objective - Vital Signs/Intake and Output Vital Signs (last 24 hours): Temp Pulse Resp BP Pulse Ox 97.4 F L 98 H 18 131/55 L 100 03/10/18 07:00 03/10/18 07:00 03/10/18 07:00 03/10/18 07:00 03/10/18 07:00 Intake and Output: 03/10/18 03/10/18 06:59 18:59 Intake Total 0 Balance 0 - Medications Medications: Current Medications Albuterol/Ipratropium (Duoneb 3 Mg/0.5 Mg (3 Ml) Ud) 3 ml IH RQ6 [facility] Last Admin: 03/10/18 13:48 Dose: Not Given Ferrous Sulfate (Feosol) 325 mg PO DAILY [facility] Last Admin: 03/10/18 10:00 Dose: Not Given Folic Acid (Folic Acid) 1 mg PO DAILY [facility] Last Admin: 03/10/18 10:00 Dose: Not Given Furosemide (Lasix) 40 mg PO DAILY [facility] Last Admin: 03/10/18 10:00 Dose: Not Given Insulin Detemir (Levemir) 20 unit SC HS [facility] Last Admin: 03/09/18 21:29 Dose: Not Given Insulin Human Regular (Novolin R) 0 unit SC ACHS [facility] PRN Reason: Protocol Last Admin: 03/10/18 12:30 Dose: 3 unit Lactulose (Enulose) 20 gm PO TID [facility] Lactulose (Generlac) 200 gm [place] ONCE ONE Stop: 03/10/18 16:01 Multivitamins (Hexavitamin) 1 tab PO DAILY [facility] Last Admin: 03/10/18 10:00 Dose: Not Given Propranolol HCl (Inderal) 10 mg PO Q12H [facility] Last Admin: 03/10/18 14:24 Dose: Not Given Saccharomyces Boulardii (Florastor) 250 mg PO DAILY [facility] Last Admin: 03/10/18 10:00 Dose: Not Given Tramadol HCl (Ultram) 50 mg PO Q6 PRN PRN Reason: pain - Labs Labs: 03/10/18 11:41 03/10/18 11:41 PT 18.2 SECONDS (9.7-12.2) H 03/09/18 08:04 INR 1.6 03/09/18 08:04 - Constitutional Appears: Non-toxic, No Acute Distress - Head Exam Head Exam: ATRAUMATIC - ENT Exam ENT Exam: Mucous Membranes Moist - Respiratory Exam Respiratory Exam: Clear to Ausculation Bilateral. absent: Rales, Rhonchi, Wheezes - Cardiovascular Exam Cardiovascular Exam: REGULAR RHYTHM, +S1, +S2 - GI/Abdominal Exam GI & Abdominal Exam: Soft. absent: Guarding, Rigid, Tenderness - Extremities Exam Extremities Exam: absent: Pedal Edema, Tenderness - Neurological Exam Neurological Exam: absent: Alert, Awake, Oriented x3 - Psychiatric Exam Psychiatric exam: absent: Normal Affect, Normal Mood - Skin Skin Exam: Dry, Intact, Normal Color, Warm Assessment and Plan - Assessment and Plan (Free Text) Assessment: 72 year old female with past medical history of cirrhosis with protal HTN, pancytopenia due to cirrohsis and hypersplenism is admitted for panctopenia Cirrhosis - Currently encephalopathic likely due to elevated ammonia - Patient was started on rifaxmin. Will start lactulose rectally 200 mg tid - MELD score of 18 with poor prognosis Encephalopathic - Likely due to elevated ammonia level - will check CT of head - Will consider placing NG tube for nutrition and oral medications Pancytopenia - WBC count improved today - ANC is 668 so no recommendation for neutropenic precautions Urinary retention - bladder scan is 250 cc - Will insert urinary catheter Prophylaxis -lovenox 30 sc - no indications for gi prophylaxis Case discussed with attending, Dr. Coronado. All orders and recs per Dr. Coronado. <Nancy Coronado - Last Filed: 03/14/18 11:42> Objective - Vital Signs/Intake and Output Vital Signs (last 24 hours): Temp Pulse Resp BP Pulse Ox 97.9 F 86 18 98/55 L 97 03/14/18 07:00 03/14/18 07:00 03/14/18 07:00 03/14/18 10:34 03/14/18 07:00 Intake and Output: 03/14/18 03/14/18 06:59 18:59 Output Total 100 Balance -100 - Medications Medications: Current Medications Albuterol/Ipratropium (Duoneb 3 Mg/0.5 Mg (3 Ml) Ud) 3 ml IH RQ6 [facility] Last Admin: 03/14/18 07:53 Dose: Not Given Enoxaparin Sodium (Lovenox) 30 mg SC DAILY [facility] Last Admin: 03/13/18 09:02 Dose: 30 mg Ferrous Sulfate (Feosol) 325 mg PO DAILY [facility] Last Admin: 03/14/18 10:32 Dose: 325 mg Folic Acid (Folic Acid) 1 mg PO DAILY [facility] Last Admin: 03/14/18 10:32 Dose: 1 mg Furosemide (Lasix) 40 mg PO DAILY [facility] Last Admin: 03/14/18 10:34 Dose: Not Given Ciprofloxacin (Cipro 400mg/200ml Dsw) 400 mg in 200 mls @ 133 mls/hr IVPB Q12H [facility] PRN Reason: Protocol Insulin Detemir (Levemir) 20 unit SC HS [facility] Last Admin: 03/13/18 21:45 Dose: 20 unit Insulin Human Regular (Novolin R) 0 unit SC ACHS [facility] PRN Reason: Protocol Last Admin: 03/14/18 08:29 Dose: 3 unit Lactulose (Enulose) 20 gm PO TID [facility] Last Admin: 03/14/18 10:31 Dose: 20 gm Multivitamins (Hexavitamin) 1 tab PO DAILY [facility] Last Admin: 03/14/18 10:32 Dose: 1 tab Propranolol HCl (Inderal) 10 mg PO Q12H [facility] Last Admin: 03/14/18 01:39 Dose: 10 mg Rifaximin (Xifaxan) 550 mg PO BID [facility] PRN Reason: Protocol Last Admin: 03/14/18 10:33 Dose: 550 mg Saccharomyces Boulardii (Florastor) 250 mg PO DAILY [facility] Last Admin: 03/14/18 10:32 Dose: 250 mg Tramadol HCl (Ultram) 50 mg PO Q6 PRN PRN Reason: pain Last Admin: 03/14/18 03:22 Dose: 50 mg - Labs Labs: 03/14/18 06:28 03/14/18 06:28 PT 18.3 SECONDS (9.7-12.2) H 05/01/18 07:56 INR 1.6 03/11/18 07:56 APTT 41 SECONDS (21-34) H 03/11/18 07:56 Attending/Attestation - Attestation I have personally seen and examined this patient.: Yes I have fully participated in the care of the patient.: Yes I have reviewed all pertinent clinical information, including history, physical exam and plan: Yes Notes (Text): case seen and d.w staff and resident, concurred with finding and management..
[2018-03-10] MEDS ORDERED: Lactulose 10 gm/15 ml (Rectal Use) PR ONE (16:00)
[2018-03-10 16:47] LABS: SQUAMOUS EPITHIAL 5 /hpf (0-5); URINE BILIRUBIN NEGATIVE (NEGATIVE); URINE BLOOD NEGATIVE (NEGATIVE); URINE CLARITY Hazy (Clear); URINE COLOR Amber (YELLOW); URINE GLUCOSE (UA) 1+ mg/dL (Normal); URINE HYALINE CAST 0-2 /lpf (0-2); URINE LEUKOCYTE ESTERASE TRACE Leu/uL (Negative); URINE PROTEIN NEGATIVE (NEGATIVE)
[2018-03-10] MEDS: Enoxaparin 30 mg Syringe SC SCH (16:53)
--- NOTE | 2018-03-10 17:39 | CP.PCM.PN ---
Subjective - Date & Time of Evaluation Date of Evaluation: 03/10/18 Time of Evaluation: 09:00 - Subjective Subjective: clinically same Objective - Vital Signs/Intake and Output Vital Signs (last 24 hours): Temp Pulse Resp BP Pulse Ox 97.6 F 94 H 20 144/75 99 03/10/18 15:43 03/10/18 15:43 03/10/18 15:43 03/10/18 15:43 03/10/18 15:43 Intake and Output: 03/10/18 03/10/18 06:59 18:59 Intake Total 0 Balance 0 - Medications Medications: Current Medications Albuterol/Ipratropium (Duoneb 3 Mg/0.5 Mg (3 Ml) Ud) 3 ml IH RQ6 [facility] Last Admin: 03/10/18 13:48 Dose: Not Given Enoxaparin Sodium (Lovenox) 30 mg SC DAILY [facility] Last Admin: 03/10/18 16:53 Dose: 30 mg Ferrous Sulfate (Feosol) 325 mg PO DAILY [facility] Last Admin: 03/10/18 10:00 Dose: Not Given Folic Acid (Folic Acid) 1 mg PO DAILY [facility] Last Admin: 03/10/18 10:00 Dose: Not Given Furosemide (Lasix) 40 mg PO DAILY [facility] Last Admin: 03/10/18 10:00 Dose: Not Given Potassium Chloride (Potassium Chloride 20 Meq/100 Ml) 20 meq in 100 mls @ 50 mls/hr IVPB ONCE ONE Stop: 03/10/18 17:40 Last Admin: 03/10/18 16:48 Dose: 50 mls/hr Insulin Detemir (Levemir) 20 unit SC HS [facility] Last Admin: 03/09/18 21:29 Dose: Not Given Insulin Human Regular (Novolin R) 0 unit SC ACHS [facility] PRN Reason: Protocol Last Admin: 03/10/18 16:56 Dose: 4 unit Lactulose (Enulose) 20 gm PO TID [facility] Lactulose (Generlac) 200 gm [place] TID [facility] Multivitamins (Hexavitamin) 1 tab PO DAILY [facility] Last Admin: 03/10/18 10:00 Dose: Not Given Propranolol HCl (Inderal) 10 mg PO Q12H [facility] Last Admin: 03/10/18 14:24 Dose: Not Given Saccharomyces Boulardii (Florastor) 250 mg PO DAILY [facility] Last Admin: 03/10/18 10:00 Dose: Not Given Tramadol HCl (Ultram) 50 mg PO Q6 PRN PRN Reason: pain - Labs Labs: 03/10/18 11:41 03/10/18 11:41 PT 18.2 SECONDS (9.7-12.2) H 03/09/18 08:04 INR 1.6 03/09/18 08:04 - Constitutional Appears: Well - Head Exam Head Exam: ATRAUMATIC, NORMAL INSPECTION, NORMOCEPHALIC - Eye Exam Eye Exam: EOMI, Normal appearance, PERRL Pupil Exam: NORMAL ACCOMODATION, PERRL - ENT Exam ENT Exam: Mucous Membranes Moist, Normal Exam - Neck Exam Neck Exam: Full ROM, Normal Inspection. absent: Lymphadenopathy - Respiratory Exam Respiratory Exam: Decreased Breath Sounds - Cardiovascular Exam Cardiovascular Exam: REGULAR RHYTHM, +S1, +S2 - GI/Abdominal Exam GI & Abdominal Exam: Soft, Diminished Bowel Sounds - Rectal Exam Rectal Exam: Deferred
--- NOTE | 2018-03-10 18:11 | CT ---
PROCEDURE: CT HEAD WITHOUT CONTRAST. HISTORY: AMS COMPARISON: Comparison made with prior CT scan of the brain dated 03/10/2018 TECHNIQUE: Axial computed tomography images were obtained through the head/brain without intravenous contrast. Radiation dose: Total exam DLP = 1442.28 mGy-cm. This CT exam was performed using one or more of the following dose reduction techniques: Automated exposure control, adjustment of the mA and/or kV according to patient size, and/or use of iterative reconstruction technique. FINDINGS: HEMORRHAGE: No acute parenchymal, subarachnoid or extra-axial aranog intracranial hemorrhage. BRAIN: Moderate to significant diffuse confluent chronic white matter ischemic changes are again seen extending peripherally into the deep and subcortical white matter both cerebral hemispheres. Mild vascular calcifications both carotid siphons and vertebral arteries. . VENTRICLES: No obstructive hydrocephalus. CALVARIUM: No acute calvarial fractures. . PARANASAL SINUSES: Unremarkable as visualized. No significant inflammatory changes. MASTOID AIR CELLS: Unremarkable as visualized. No inflammatory changes. OTHER FINDINGS: Orbits and contents grossly unremarkable. IMPRESSION: No evidence of acute intracranial hemorrhage. Moderate to fairly significant chronic white matter ischemic changes as above. Moderate generalized volume loss.
--- NOTE | 2018-03-10 18:43 | CP.PCM.CON ---
History of Present Illness - History of Present Illness History of Present Illness: 72 yo woman admitted from the long term with abnormal labs. She was found to have low WBC count, low platelet count, slightly lower than her baseline. She is known to me for the past several years, for HepC related liver cirrhosis and hypersplenism, pancytopenia, portal hypertension wuth recent frequent episodes of encephalopathy requiring care in chronic care facility. The patient has been afebrile without any episodes of bleeding rep[orted by the nurses. Past Patient History - Infectious Disease Hx of Infectious Diseases: None - Past Medical History & Family History Past Medical History?: Yes - Past Social History Smoking Status: Former Smoker - CARDIAC Hx Hypertension: Yes - PULMONARY Hx Asthma: Yes Hx Bronchitis: Yes - NEUROLOGICAL Other/Comment: SEVERE NEUROPATHY, hepatic encephalopathy. subdural hematoma - HEENT Hx HEENT Problems: Yes Other/Comment: Dimished vision bilateral - RENAL Hx Chronic Kidney Disease: No - ENDOCRINE/METABOLIC Hx Endocrine Disorders: Yes Hx Diabetes Mellitus Type 1: Yes Hx Diabetes Mellitus Type 2: Yes - HEMATOLOGICAL/ONCOLOGICAL Hx Anemia: Yes (with Pancytopenia) - INTEGUMENTARY Hx Psoriasis: Yes - MUSCULOSKELETAL/RHEUMATOLOGICAL Hx Arthritis: Yes (L KNEE SEVERE OA) Hx Fractures: Yes (right hip) Hx Osteoporosis: Yes - GASTROINTESTINAL Hx Crohn's Disease: Yes Hx Diverticulitis: Yes Hx Gall Bladder Disease: Yes Hx Gastritis: Yes - GENITOURINARY/GYNECOLOGICAL Hx Genitourinary Disorders: No - PSYCHIATRIC Hx Anxiety: Yes Hx Depression: Yes Hx Substance Use: No - SURGICAL HISTORY Hx Appendectomy: Yes Hx Cholecystectomy: Yes - ANESTHESIA Hx Anesthesia: Yes Hx Anesthesia Reactions: No Hx Malignant Hyperthermia: No Meds Allergies/Adverse Reactions: Allergies Allergy/AdvReac Type Severity Reaction Status Date / Time acetaminophen [From Percocet] Allergy RASH Verified 11/08/17 20:36 aspirin Allergy RASH Verified 11/08/17 20:36 oxycodone HCl [From Percocet] Allergy RASH Verified 11/08/17 20:36 Penicillins Allergy RASH Verified 11/08/17 20:36 PAIN MEDICATIONS Allergy Uncoded 11/08/17 20:36 - Medications Medications: Current Medications Albuterol/Ipratropium (Duoneb 3 Mg/0.5 Mg (3 Ml) Ud) 3 ml IH RQ6 [facility] Last Admin: 03/10/18 13:48 Dose: Not Given Enoxaparin Sodium (Lovenox) 30 mg SC DAILY [facility] Last Admin: 03/10/18 16:53 Dose: 30 mg Ferrous Sulfate (Feosol) 325 mg PO DAILY [facility] Last Admin: 03/10/18 10:00 Dose: Not Given Folic Acid (Folic Acid) 1 mg PO DAILY [facility] Last Admin: 03/10/18 10:00 Dose: Not Given Furosemide (Lasix) 40 mg PO DAILY [facility] Last Admin: 03/10/18 10:00 Dose: Not Given Insulin Detemir (Levemir) 20 unit SC [facility] Last Admin: 03/09/18 21:29 Dose: Not Given Insulin Human Regular (Novolin R) 0 unit SC [facility] PRN Reason: Protocol Last Admin: 03/10/18 16:56 Dose: 4 unit Lactulose (Enulose) 20 gm PO TID [facility] Lactulose (Generlac) 200 gm [place] TID [facility] Multivitamins (Hexavitamin) 1 tab PO DAILY [facility] Last Admin: 03/10/18 10:00 Dose: Not Given Propranolol HCl (Inderal) 10 mg PO Q12H [facility] Last Admin: 03/10/18 14:24 Dose: Not Given Saccharomyces Boulardii (Florastor) 250 mg PO DAILY [facility] Last Admin: 03/10/18 10:00 Dose: Not Given Tramadol HCl (Ultram) 50 mg PO Q6 [facility] PRN Reason: pain Results - Vital Signs Recent Vital Signs: Last Vital Signs Temp 97.6 F 03/10/18 15:43 Pulse 94 H 03/10/18 15:43 Resp 20 03/10/18 15:43 BP 144/75 03/10/18 15:43 Pulse Ox 99 03/10/18 15:43 - Labs Result Diagrams: 03/10/18 11:41 03/10/18 11:41 Labs: Laboratory Results - last 24 hr 03/09/18 03/10/18 03/10/18 21:25 06:13 11:25 WBC RBC Hgb Hct MCV MCH MCHC RDW Plt Count MPV Neut % (Auto) Lymph % (Auto) Patrick % (Auto) Eos % (Auto) Baso % (Auto) Neut # (Auto) Lymph # (Auto) Patrick # (Auto) Eos # (Auto) Baso # (Auto) Sodium Potassium Chloride Carbon Dioxide Anion Gap BUN Creatinine Est GFR ( Amer) Est GFR (Non-Af Amer) POC Glucose (mg/dL) 289 H 265 H 245 H Random Glucose Calcium Ammonia Urine Color Urine Clarity Urine pH Ur Specific [place] Urine Protein Urine Glucose (UA) Urine Ketones Urine Blood Urine Nitrate Urine Bilirubin Urine Urobilinogen Ur Leukocyte Esterase Urine WBC (Auto) Urine RBC (Auto) Ur Squamous Epith Cells Hyaline Casts Alcohol, Quantitative 03/10/18 03/10/18 03/10/18 11:41 11:41 11:41 WBC 1.7 L* D RBC 2.88 L Hgb 10.0 L Hct 28.0 L MCV 97.2 MCH 34.7 H MCHC 35.7 RDW 15.8 H Plt Count 30 L* MPV 9.2 Neut % (Auto) 66.8 Lymph % (Auto) 25.1 Patrick % (Auto) 5.7 Eos % (Auto) 1.5 Baso % (Auto) 0.9 Neut # (Auto) 1.1 L Lymph # (Auto) 0.4 L Patrick # (Auto) 0.1 Eos # (Auto) 0.0 Baso # (Auto) 0.0 Sodium 140 Potassium 3.4 L Chloride 101 Carbon Dioxide 31 H Anion Gap 11 BUN 12 Creatinine 0.5 L Est GFR ( Amer) > 60 Est GFR (Non-Af Amer) > 60 POC Glucose (mg/dL) Random Glucose 196 H Calcium 8.7 Ammonia 136 H D Urine Color Urine Clarity Urine pH Ur Specific [place] Urine Protein Urine Glucose (UA) Urine Ketones Urine Blood Urine Nitrate Urine Bilirubin Urine Urobilinogen Ur Leukocyte Esterase Urine WBC (Auto) Urine RBC (Auto) Ur Squamous Epith Cells Hyaline Casts Alcohol, Quantitative < 10 03/10/18 03/10/18 03/10/18 16:30 16:37 18:31 WBC RBC Hgb Hct MCV MCH MCHC RDW Plt Count MPV Neut % (Auto) Lymph % (Auto) Patrick % (Auto) Eos % (Auto) Baso % (Auto) Neut # (Auto) Lymph # (Auto) Patrick # (Auto) Eos # (Auto) Baso # (Auto) Sodium Potassium Chloride Carbon Dioxide Anion Gap BUN Creatinine Est GFR ( Amer) Est GFR (Non-Af Amer) POC Glucose (mg/dL) 283 H 234 H Random Glucose Calcium Ammonia Urine Color July Urine Clarity Hazy Urine pH 6.0 Ur Specific [place] 1.021 Urine Protein Negative Urine Glucose (UA) 1+ Urine Ketones Trace Urine Blood Negative Urine Nitrate Negative Urine Bilirubin Negative Urine Urobilinogen 4.0 H Ur Leukocyte Esterase Trace Urine WBC (Auto) 9 H Urine RBC (Auto) 4 H Ur Squamous Epith Cells 5 Hyaline Casts 0-2 Alcohol, Quantitative Assessment & Plan (1) Pancytopenia Assessment and Plan: Severe pancytopenia, continue po folic acid , check ferritin levels, do not recommend neupogen or platelet transfusions unless patient is bleeding or febrile Status: Acute
[2018-03-10] MEDS: Lactulose 10 gm/15 ml (Rectal Use) PR SCH (19:00)
[2018-03-10] MEDS: Insulin Detemir 100 units/ml Vial (Levemir) SC SCH (21:08)
[2018-03-11] MEDS: Albuterol-Ipratrop 3 mg / 0.5 (3 ml) UD IH SCH ×4 (01:17→19:39)
[2018-03-11 08:09] LABS: BASO % 0.6 % (0.0-2.0); EOS % 1.1 % (0.0-4.0); HEMOGLOBIN 10.1 g/dL (11.0-16.0); LYMPH # 0.3 K/uL (1.0-4.3); LYMPH % 18.9 % (20.0-40.0); MEAN CELL VOLUME 97.9 fL (81.0-99.0); MEAN CORPUSCULAR HEMOGLOBIN 34.4 pg (27.0-31.0); MEAN CORPUSCULAR HGB CONC 35.1 g/dL (33.0-37.0); MEAN PLATELET VOLUME 8.9 fL (7.2-11.7); MONO # 0.1 K/uL (0.0-0.8); MONO % 4.5 % (0.0-10.0); NEUT # 1.2 K/uL (1.8-7.0); NEUT % 74.9 % (50.0-75.0); NRBC % 0.4 % (0.0-2.0); RBC 2.93 Mil/uL (3.80-5.20); RED CELL DISTRIBUTION WIDTH 16.1 % (11.5-14.5)
[2018-03-11 08:12] LABS: WHITE BLOOD COUNT 1.6 K/uL (4.8-10.8)
[2018-03-11] MEDS: (Novolin R) Insulin Human Regular 100 units/ml vial SC SCH ×4 (08:12→21:29)
[2018-03-11 08:13] LABS: INR 1.6; PROTHROMBIN TIME 18.3 SECONDS (9.7-12.2)
--- NOTE | 2018-03-11 08:13 | CP.PCM.PN ---
Subjective - Date & Time of Evaluation Date of Evaluation: 03/11/18 Time of Evaluation: 08:00 - Subjective Subjective: f/u cirrhosis Confused Non compliant with meds/lactulose po. Pt seen with RN. Discussed with RN. No report of rB, melena, abd pain, dysphagia, hematuria, hemoptysis, fever, chills Objective - Vital Signs/Intake and Output Vital Signs (last 24 hours): Temp Pulse Resp BP Pulse Ox 97.2 F L 95 H 20 135/68 97 03/11/18 08:06 03/11/18 08:06 03/11/18 08:06 03/11/18 08:06 03/11/18 08:06 Intake and Output: 03/11/18 03/11/18 06:59 18:59 Intake Total 220 Output Total 425 Balance -205 - Medications Medications: Current Medications Albuterol/Ipratropium (Duoneb 3 Mg/0.5 Mg (3 Ml) Ud) 3 ml IH RQ6 [facility] Last Admin: 03/11/18 07:31 Dose: Not Given Enoxaparin Sodium (Lovenox) 30 mg SC DAILY [facility] Last Admin: 03/10/18 16:53 Dose: 30 mg Ferrous Sulfate (Feosol) 325 mg PO DAILY [facility] Last Admin: 03/10/18 10:00 Dose: Not Given Folic Acid (Folic Acid) 1 mg PO DAILY [facility] Last Admin: 03/10/18 10:00 Dose: Not Given Furosemide (Lasix) 40 mg PO DAILY [facility] Last Admin: 03/10/18 10:00 Dose: Not Given Insulin Detemir (Levemir) 20 unit SC HS [facility] Last Admin: 03/10/18 21:08 Dose: Not Given Insulin Human Regular (Novolin R) [address] [facility] PRN Reason: Protocol Last Admin: 03/10/18 21:08 Dose: Not Given Lactulose (Enulose) 20 gm PO TID [facility] Last Admin: 03/10/18 18:04 Dose: Not Given Lactulose (Generlac) 200 gm [place] TID [facility] Last Admin: 03/10/18 19:00 Dose: 200 gm Multivitamins (Hexavitamin) 1 tab PO DAILY [facility] Last Admin: 03/10/18 10:00 Dose: Not Given Propranolol HCl (Inderal) 10 mg PO Q12H [facility] Last Admin: 03/11/18 00:20 Dose: Not Given Saccharomyces Boulardii (Florastor) 250 mg PO DAILY [facility] Last Admin: 03/10/18 10:00 Dose: Not Given Tramadol HCl (Ultram) 50 mg PO Q6 PRN PRN Reason: pain - Labs Labs: 03/10/18 11:41 03/10/18 11:41 PT 18.2 SECONDS (9.7-12.2) H 03/09/18 08:04 INR 1.6 03/09/18 08:04 - Constitutional Appears: Non-toxic - Respiratory Exam Respiratory Exam: Clear to Ausculation Bilateral - Cardiovascular Exam Cardiovascular Exam: RRR - GI/Abdominal Exam GI & Abdominal Exam: Soft, Normal Bowel Sounds. absent: Guarding, Tenderness, Mass - Neurological Exam Neurological Exam: Alert, Awake. absent: Oriented x3 - Skin Skin Exam: Intact Assessment and Plan (1) Neutropenia Status: Acute (2) Anemia Status: Acute (3) Cirrhosis Status: Acute (4) HCV (hepatitis C virus) Status: Acute (5) Hepatic encephalopathy Assessment & Plan: Needs lactulose- if not taking po, then per rectum. xifaxan. Check NH3 Status: Acute
[2018-03-11 08:22] LABS: ALB/GLOB RATIO 0.7 (1.0-2.1); ALBUMIN 2.6 g/dL (3.5-5.0); ALT/SGPT 30 U/L (9-52); AST/SGOT 83 U/L (14-36); BLOOD UREA NITROGEN 13 mg/dL (7-17); CALCIUM 9.1 mg/dl (8.6-10.4); GFR AFRICAN-AMERICAN > 60; GFR NON-AFRICAN AMERICAN > 60
[2018-03-11] MEDS: Multiple Vitamins Tab PO SCH (09:13)
[2018-03-11] MEDS: Enoxaparin 30 mg Syringe SC SCH (09:13)
[2018-03-11] MEDS: Saccharomyces Boulardi 250 mg Cap PO SCH (09:14)
[2018-03-11] MEDS: Lactulose 10 gm/15 ml (Rectal Use) PR SCH ×3 (12:02→17:18)
--- NOTE | 2018-03-11 15:29 | CP.PCM.PN ---
Subjective - Date & Time of Evaluation Date of Evaluation: 03/11/18 Time of Evaluation: 08:40 - Subjective Subjective: clinically same Objective - Vital Signs/Intake and Output Vital Signs (last 24 hours): Temp Pulse Resp BP Pulse Ox 97.2 F L 95 H 20 135/68 97 03/11/18 08:06 03/11/18 08:06 03/11/18 08:06 03/11/18 09:15 03/11/18 08:06 Intake and Output: 03/11/18 03/11/18 06:59 18:59 Intake Total 220 Output Total 425 Balance -205 - Medications Medications: Current Medications Albuterol/Ipratropium (Duoneb 3 Mg/0.5 Mg (3 Ml) Ud) 3 ml IH RQ6 [facility] Last Admin: 03/11/18 14:00 Dose: Not Given Enoxaparin Sodium (Lovenox) 30 mg SC DAILY [facility] Last Admin: 03/11/18 09:13 Dose: 30 mg Ferrous Sulfate (Feosol) 325 mg PO DAILY [facility] Last Admin: 03/11/18 09:13 Dose: 325 mg Folic Acid (Folic Acid) 1 mg PO DAILY [facility] Last Admin: 03/11/18 09:13 Dose: 1 mg Furosemide (Lasix) 40 mg PO DAILY [facility] Last Admin: 03/11/18 09:15 Dose: 40 mg Insulin Detemir (Levemir) 20 unit SC HS [facility] Last Admin: 03/10/18 21:08 Dose: Not Given Insulin Human Regular (Novolin R) 0 unit SC ACHS [facility] PRN Reason: Protocol Last Admin: 03/11/18 12:30 Dose: 4 unit Lactulose (Enulose) 20 gm PO TID [facility] Last Admin: 03/11/18 14:34 Dose: 20 gm Lactulose (Generlac) 200 gm [place] TID [facility] Last Admin: 03/11/18 15:07 Dose: Not Given Multivitamins (Hexavitamin) 1 tab PO DAILY [facility] Last Admin: 03/11/18 09:13 Dose: 1 tab Propranolol HCl (Inderal) 10 mg PO Q12H [facility] Last Admin: 03/11/18 12:38 Dose: Not Given Rifaximin (Xifaxan) 550 mg PO BID [facility] PRN Reason: Protocol Last Admin: 03/11/18 11:00 Dose: Not Given Saccharomyces Boulardii (Florastor) 250 mg PO DAILY [facility] Last Admin: 03/11/18 09:14 Dose: 250 mg Tramadol HCl (Ultram) 50 mg PO Q6 PRN PRN Reason: pain - Labs Labs: 03/11/18 07:56 03/11/18 07:56 PT 18.3 SECONDS (9.7-12.2) H 03/11/18 07:56 INR 1.6 03/11/18 07:56 APTT 41 SECONDS (21-34) H 03/11/18 07:56 - Constitutional Appears: Well - Head Exam Head Exam: ATRAUMATIC, NORMAL INSPECTION, NORMOCEPHALIC - Eye Exam Eye Exam: EOMI, Normal appearance, PERRL Pupil Exam: NORMAL ACCOMODATION, PERRL - ENT Exam ENT Exam: Mucous Membranes Moist, Normal Exam - Neck Exam Neck Exam: Full ROM, Normal Inspection. absent: Lymphadenopathy - Respiratory Exam Respiratory Exam: Decreased Breath Sounds - Cardiovascular Exam Cardiovascular Exam: REGULAR RHYTHM, +S1, +S2 - GI/Abdominal Exam GI & Abdominal Exam: Soft, Diminished Bowel Sounds - Rectal Exam Rectal Exam: Deferred
[2018-03-11] MEDS: Insulin Detemir 100 units/ml Vial (Levemir) SC SCH (21:29)
[2018-03-12] MEDS: Albuterol-Ipratrop 3 mg / 0.5 (3 ml) UD IH SCH ×4 (01:22→19:37)
[2018-03-12 07:21] LABS: BLOOD UREA NITROGEN 11 mg/dL (7-17); CALCIUM 8.4 mg/dl (8.6-10.4); GFR AFRICAN-AMERICAN > 60; GFR NON-AFRICAN AMERICAN > 60
[2018-03-12 07:43] LABS: BASO % 1.1 % (0.0-2.0); EOS % 1.7 % (0.0-4.0); HEMOGLOBIN 8.7 g/dL (11.0-16.0); LYMPH # 0.4 K/uL (1.0-4.3); LYMPH % 23.7 % (20.0-40.0); MEAN CELL VOLUME 96.9 fL (81.0-99.0); MEAN CORPUSCULAR HEMOGLOBIN 34.5 pg (27.0-31.0); MEAN CORPUSCULAR HGB CONC 35.6 g/dL (33.0-37.0); MEAN PLATELET VOLUME 8.4 fL (7.2-11.7); MONO # 0.1 K/uL (0.0-0.8); MONO % 5.7 % (0.0-10.0); NEUT # 1.1 K/uL (1.8-7.0); NEUT % 67.8 % (50.0-75.0); NRBC % 0.4 % (0.0-2.0); RBC 2.51 Mil/uL (3.80-5.20); RED CELL DISTRIBUTION WIDTH 15.9 % (11.5-14.5)
[2018-03-12 07:46] LABS: WHITE BLOOD COUNT 1.6 K/uL (4.8-10.8)
[2018-03-12] MEDS: (Novolin R) Insulin Human Regular 100 units/ml vial SC SCH ×4 (08:30→21:20)
[2018-03-12] MEDS: Saccharomyces Boulardi 250 mg Cap PO SCH (10:52)
[2018-03-12] MEDS: Multiple Vitamins Tab PO SCH (10:52)
[2018-03-12] MEDS: Lactulose 10 gm/15 ml (Rectal Use) PR SCH ×3 (10:53→18:09)
[2018-03-12] MEDS: Enoxaparin 30 mg Syringe SC SCH (10:53)
--- NOTE | 2018-03-12 12:22 | CP.PCM.PN ---
Subjective - Date & Time of Evaluation Date of Evaluation: 03/12/18 Time of Evaluation: 12:20 - Subjective Subjective: CC: follow up encephalpopathy More alert but not talking No GI bleeding Pancytopenia, cirrhosis Objective - Vital Signs/Intake and Output Vital Signs (last 24 hours): Temp Pulse Resp BP Pulse Ox 98.5 F 90 20 124/69 97 03/12/18 07:35 03/12/18 07:35 03/12/18 07:35 03/12/18 10:59 03/12/18 07:35 Intake and Output: 03/12/18 03/12/18 06:59 18:59 Intake Total 124 Output Total 300 Balance -176 - Medications Medications: Current Medications Albuterol/Ipratropium (Duoneb 3 Mg/0.5 Mg (3 Ml) Ud) 3 ml IH RQ6 [facility] Last Admin: 03/12/18 07:20 Dose: Not Given Enoxaparin Sodium (Lovenox) 30 mg SC DAILY [facility] Last Admin: 03/12/18 10:53 Dose: 30 mg Ferrous Sulfate (Feosol) 325 mg PO DAILY [facility] Last Admin: 03/12/18 10:55 Dose: 325 mg Folic Acid (Folic Acid) 1 mg PO DAILY [facility] Last Admin: 03/12/18 10:53 Dose: 1 mg Furosemide (Lasix) 40 mg PO DAILY [facility] Last Admin: 03/12/18 10:59 Dose: 40 mg Insulin Detemir (Levemir) 20 unit SC HS [facility] Last Admin: 03/11/18 21:29 Dose: 20 unit Insulin Human Regular (Novolin R) 0 unit SC ACHS [facility] PRN Reason: Protocol Last Admin: 03/12/18 08:30 Dose: 2 unit Lactulose (Enulose) 20 gm PO TID [facility] Last Admin: 03/12/18 10:52 Dose: 20 gm Lactulose (Generlac) 200 gm [place] TID [facility] Last Admin: 03/12/18 10:53 Dose: Not Given Multivitamins (Hexavitamin) 1 tab PO DAILY [facility] Last Admin: 03/12/18 10:52 Dose: 1 tab Propranolol HCl (Inderal) 10 mg PO Q12H [facility] Last Admin: 03/12/18 00:08 Dose: 10 mg Rifaximin (Xifaxan) 550 mg PO BID [facility] PRN Reason: Protocol Last Admin: 03/12/18 10:53 Dose: 550 mg Saccharomyces Boulardii (Florastor) 250 mg PO DAILY [facility] Last Admin: 03/12/18 10:52 Dose: 250 mg Tramadol HCl (Ultram) 50 mg PO Q6 PRN PRN Reason: pain Last Admin: 03/11/18 18:08 Dose: 50 mg - Labs Labs: 03/12/18 06:56 03/12/18 06:56 PT 18.3 SECONDS (9.7-12.2) H 03/11/18 07:56 INR 1.6 03/11/18 07:56 APTT 41 SECONDS (21-34) H 03/11/18 07:56 - Constitutional Appears: Confused, Chronically Ill - Eye Exam Eye Exam: absent: Scleral icterus - Respiratory Exam Respiratory Exam: NORMAL BREATHING PATTERN - Cardiovascular Exam Cardiovascular Exam: Tachycardia, REGULAR RHYTHM - GI/Abdominal Exam GI & Abdominal Exam: Soft. absent: Distended, Tenderness Assessment and Plan (1) Pancytopenia Assessment & Plan: chronic, stable heme eval noted Status: Acute (2) Cirrhosis Assessment & Plan: Hep encephalopathy Lactulose chronically Monitor mental status Status: Acute
--- NOTE | 2018-03-12 15:31 | CP.PCM.PN ---
Subjective - Date & Time of Evaluation Date of Evaluation: 03/12/18 Time of Evaluation: 09:20 - Subjective Subjective: clinically same Objective - Vital Signs/Intake and Output Vital Signs (last 24 hours): Temp Pulse Resp BP Pulse Ox 98.5 F 90 20 124/69 97 03/12/18 07:35 03/12/18 07:35 03/12/18 07:35 03/12/18 10:59 03/12/18 07:35 Intake and Output: 03/12/18 03/12/18 06:59 18:59 Intake Total 124 Output Total 300 Balance -176 - Medications Medications: Current Medications Albuterol/Ipratropium (Duoneb 3 Mg/0.5 Mg (3 Ml) Ud) 3 ml IH RQ6 [facility] Last Admin: 03/12/18 13:52 Dose: Not Given Enoxaparin Sodium (Lovenox) 30 mg SC DAILY [facility] Last Admin: 03/12/18 10:53 Dose: 30 mg Ferrous Sulfate (Feosol) 325 mg PO DAILY [facility] Last Admin: 03/12/18 10:55 Dose: 325 mg Folic Acid (Folic Acid) 1 mg PO DAILY [facility] Last Admin: 03/12/18 10:53 Dose: 1 mg Furosemide (Lasix) 40 mg PO DAILY [facility] Last Admin: 03/12/18 10:59 Dose: 40 mg Insulin Detemir (Levemir) 20 unit SC HS [facility] Last Admin: 03/11/18 21:29 Dose: 20 unit Insulin Human Regular (Novolin R) 0 unit SC ACHS [facility] PRN Reason: Protocol Last Admin: 03/12/18 12:39 Dose: 3 unit Lactulose (Enulose) 20 gm PO TID [facility] Last Admin: 03/12/18 14:22 Dose: 20 gm Lactulose (Generlac) 200 gm [place] TID [facility] Last Admin: 03/12/18 14:22 Dose: Not Given Multivitamins (Hexavitamin) 1 tab PO DAILY [facility] Last Admin: 03/12/18 10:52 Dose: 1 tab Propranolol HCl (Inderal) 10 mg PO Q12H [facility] Last Admin: 03/12/18 14:22 Dose: 10 mg Rifaximin (Xifaxan) 550 mg PO BID [facility] PRN Reason: Protocol Last Admin: 03/12/18 10:53 Dose: 550 mg Saccharomyces Boulardii (Florastor) 250 mg PO DAILY [facility] Last Admin: 03/12/18 10:52 Dose: 250 mg Tramadol HCl (Ultram) 50 mg PO Q6 PRN PRN Reason: pain Last Admin: 03/11/18 18:08 Dose: 50 mg - Labs Labs: 03/12/18 06:56 03/12/18 06:56 PT 18.3 SECONDS (9.7-12.2) H 03/11/18 07:56 INR 1.6 03/11/18 07:56 APTT 41 SECONDS (21-34) H 03/11/18 07:56 - Constitutional Appears: Well - Head Exam Head Exam: ATRAUMATIC, NORMAL INSPECTION, NORMOCEPHALIC - Eye Exam Eye Exam: EOMI, Normal appearance, PERRL Pupil Exam: NORMAL ACCOMODATION, PERRL - ENT Exam ENT Exam: Mucous Membranes Moist, Normal Exam - Neck Exam Neck Exam: Full ROM, Normal Inspection. absent: Lymphadenopathy - Respiratory Exam Respiratory Exam: Decreased Breath Sounds - Cardiovascular Exam Cardiovascular Exam: REGULAR RHYTHM, +S1, +S2 - GI/Abdominal Exam GI & Abdominal Exam: Soft, Diminished Bowel Sounds - Rectal Exam Rectal Exam: Deferred
[2018-03-12] MEDS: Insulin Detemir 100 units/ml Vial (Levemir) SC SCH (21:28)
[2018-03-13] MEDS: Albuterol-Ipratrop 3 mg / 0.5 (3 ml) UD IH SCH ×4 (01:17→19:44)
[2018-03-13 07:15] LABS: BASO % 0.3 % (0.0-2.0); EOS % 1.7 % (0.0-4.0); HEMOGLOBIN 9.6 g/dL (11.0-16.0); LYMPH # 0.4 K/uL (1.0-4.3); MEAN CELL VOLUME 97.4 fL (81.0-99.0); MEAN CORPUSCULAR HEMOGLOBIN 34.6 pg (27.0-31.0); MEAN CORPUSCULAR HGB CONC 35.5 g/dL (33.0-37.0); MEAN PLATELET VOLUME 8.6 fL (7.2-11.7); MONO # 0.1 K/uL (0.0-0.8); MONO % 6.2 % (0.0-10.0); NEUT # 1.1 K/uL (1.8-7.0); NEUT % 69.8 % (50.0-75.0); NRBC % 0.4 % (0.0-2.0); RBC 2.77 Mil/uL (3.80-5.20); RED CELL DISTRIBUTION WIDTH 15.7 % (11.5-14.5)
[2018-03-13 07:29] LABS: WHITE BLOOD COUNT 1.6 K/uL (4.8-10.8)
[2018-03-13 07:32] LABS: BLOOD UREA NITROGEN 9 mg/dL (7-17); CALCIUM 8.3 mg/dl (8.6-10.4); GFR AFRICAN-AMERICAN > 60; GFR NON-AFRICAN AMERICAN > 60
[2018-03-13] MEDS: Multiple Vitamins Tab PO SCH (09:02)
[2018-03-13] MEDS: Enoxaparin 30 mg Syringe SC SCH (09:02)
[2018-03-13] MEDS: Saccharomyces Boulardi 250 mg Cap PO SCH (09:03)
[2018-03-13] MEDS: Lactulose 10 gm/15 ml (Rectal Use) PR SCH ×4 (09:04→18:31)
[2018-03-13] MEDS: (Novolin R) Insulin Human Regular 100 units/ml vial SC SCH ×4 (09:09→21:47)
[2018-03-13] MEDS ORDERED: Potassium Chloride 20 mEq/15 ml LIQ UD PO STA (11:15)
--- NOTE | 2018-03-13 13:49 | CP.PCM.PN ---
<Chapis Ramirez - Last Filed: 03/13/18 15:22> Subjective - Date & Time of Evaluation Date of Evaluation: 03/13/18 Time of Evaluation: 07:00 - Subjective Subjective: PGY [address] Coronado Pt seen and examined. Patient has AMS this am due to hyperammonia. She is responding but not answering all ROS questions. She knew her name and location today. She stated she had some back pain. Patient denies having any CP, SOB, abd pain. Objective - Vital Signs/Intake and Output Vital Signs (last 24 hours): Temp Pulse Resp BP Pulse Ox 97.9 F 85 18 114/68 97 03/13/18 07:00 03/13/18 07:00 03/13/18 07:00 03/13/18 09:07 03/13/18 07:00 Intake and Output: 03/13/18 03/13/18 06:59 18:59 Intake Total 100 Output Total 325 Balance -225 - Medications Medications: Current Medications Albuterol/Ipratropium (Duoneb 3 Mg/0.5 Mg (3 Ml) Ud) 3 ml IH RQ6 [facility] Last Admin: 03/13/18 13:16 Dose: 3 ml Enoxaparin Sodium (Lovenox) 30 mg SC DAILY [facility] Last Admin: 03/13/18 09:02 Dose: 30 mg Ferrous Sulfate (Feosol) 325 mg PO DAILY [facility] Last Admin: 03/13/18 09:03 Dose: 325 mg Folic Acid (Folic Acid) 1 mg PO DAILY [facility] Last Admin: 03/13/18 09:02 Dose: 1 mg Furosemide (Lasix) 40 mg PO DAILY [facility] Last Admin: 03/13/18 09:07 Dose: 40 mg Insulin Detemir (Levemir) 20 unit SC HS [facility] Last Admin: 03/12/18 21:28 Dose: 20 unit Insulin Human Regular (Novolin R) 0 unit SC ACHS [facility] PRN Reason: Protocol Last Admin: 03/13/18 12:24 Dose: Not Given Lactulose (Enulose) 20 gm PO TID [facility] Last Admin: 03/13/18 09:02 Dose: 20 gm Lactulose (Generlac) 200 gm AL TID [facility] Last Admin: 03/13/18 09:04 Dose: Not Given Multivitamins (Hexavitamin) 1 tab PO DAILY [facility] Last Admin: 03/13/18 09:02 Dose: 1 tab Propranolol HCl (Inderal) 10 mg PO Q12H [facility] Last Admin: 03/13/18 12:24 Dose: Not Given Rifaximin (Xifaxan) 550 mg PO BID [facility] PRN Reason: Protocol Last Admin: 03/13/18 09:04 Dose: 550 mg Saccharomyces Boulardii (Florastor) 250 mg PO DAILY [facility] Last Admin: 03/13/18 09:03 Dose: 250 mg Tramadol HCl (Ultram) 50 mg PO Q6 PRN PRN Reason: pain Last Admin: 03/12/18 17:41 Dose: 50 mg - Labs Labs: 03/13/18 06:45 03/13/18 06:45 PT 18.3 SECONDS (9.7-12.2) H 03/11/18 07:56 INR 1.6 03/11/18 07:56 APTT 41 SECONDS (21-34) H 03/11/18 07:56 - Constitutional Appears: Non-toxic, No Acute Distress, Chronically Ill - Head Exam Head Exam: NORMAL INSPECTION - Eye Exam Eye Exam: EOMI, Normal appearance - ENT Exam ENT Exam: Mucous Membranes Moist - Respiratory Exam Respiratory Exam: Clear to Ausculation Bilateral, NORMAL BREATHING PATTERN. absent: Respiratory Distress - Cardiovascular Exam Cardiovascular Exam: REGULAR RHYTHM, +S1, +S2 - GI/Abdominal Exam GI & Abdominal Exam: Soft, Normal Bowel Sounds. absent: Distended, Firm, Guarding, Tenderness - Back Exam Back Exam: NORMAL INSPECTION - Neurological Exam Neurological Exam: Alert, Awake. absent: Oriented x3 - Psychiatric Exam Psychiatric exam: Normal Affect, Normal Mood Assessment and Plan - Assessment and Plan (Free Text) Assessment: Assessment: 72 year old female with past medical history of cirrhosis with protal HTN, pancytopenia due to cirrohsis and hypersplenism is admitted for panctopenia Cirrhosis - Currently encephalopathic likely due to elevated ammonia - Patient was started on rifaxmin. Will start lactulose rectally 200 mg tid - MELD score of 18 with poor prognosis Encephalopathic - Likely due to elevated ammonia level - CT of head - chronic changes - Will consider placing NG tube for nutrition and oral medications Pancytopenia - WBC count improved today - ANC is 668 so no recommendation for neutropenic precautions - Dr. Maciel consulted - check ferritin levels, do not recommend neupogen or platelet transfusions unless patient is bleeding or febrile Hematuria - you in place - Urology consulted - help appreciated Urinary retention - bladder scan is 250 cc - You cathether - hematuria - f/u urology Hypokalemaia K 3.5 replaced orally monitor K/Mg level tomorrow Prophylaxis - lovenox 30 sc - held due to possible hematuria - no indications for gi prophylaxis Case discussed with attending, Dr. Coronado. All orders and recs per Dr. Coronado. <Nancy Coronado - Last Filed: 03/14/18 11:43> Objective - Vital Signs/Intake and Output Vital Signs (last 24 hours): Temp Pulse Resp BP Pulse Ox 97.9 F 86 18 98/55 L 97 03/14/18 07:00 03/14/18 07:00 03/14/18 07:00 03/14/18 10:34 03/14/18 07:00 Intake and Output: 03/14/18 03/14/18 06:59 18:59 Output Total 100 Balance -100 - Medications Medications: Current Medications Albuterol/Ipratropium (Duoneb 3 Mg/0.5 Mg (3 Ml) Ud) 3 ml IH RQ6 [facility] Last Admin: 03/14/18 07:53 Dose: Not Given Enoxaparin Sodium (Lovenox) 30 mg SC DAILY [facility] Last Admin: 03/13/18 09:02 Dose: 30 mg Ferrous Sulfate (Feosol) 325 mg PO DAILY [facility] Last Admin: 03/14/18 10:32 Dose: 325 mg Folic Acid (Folic Acid) 1 mg PO DAILY [facility] Last Admin: 03/14/18 10:32 Dose: 1 mg Furosemide (Lasix) 40 mg PO DAILY [facility] Last Admin: 03/14/18 10:34 Dose: Not Given Ciprofloxacin (Cipro 400mg/200ml Dsw) 400 mg in 200 mls @ 133 mls/hr IVPB Q12H [facility] PRN Reason: Protocol Insulin Detemir (Levemir) 20 unit SC HS [facility] Last Admin: 03/13/18 21:45 Dose: 20 unit Insulin Human Regular (Novolin R) 0 unit SC ACHS [facility] PRN Reason: Protocol Last Admin: 03/14/18 08:29 Dose: 3 unit Lactulose (Enulose) 20 gm PO TID [facility] Last Admin: 03/14/18 10:31 Dose: 20 gm Multivitamins (Hexavitamin) 1 tab PO DAILY [facility] Last Admin: 03/14/18 10:32 Dose: 1 tab Propranolol HCl (Inderal) 10 mg PO Q12H [facility] Last Admin: 03/14/18 01:39 Dose: 10 mg Rifaximin (Xifaxan) 550 mg PO BID [facility] PRN Reason: Protocol Last Admin: 03/14/18 10:33 Dose: 550 mg Saccharomyces Boulardii (Florastor) 250 mg PO DAILY [facility] Last Admin: 03/14/18 10:32 Dose: 250 mg Tramadol HCl (Ultram) 50 mg PO Q6 PRN PRN Reason: pain Last Admin: 03/14/18 03:22 Dose: 50 mg - Labs Labs: 03/14/18 06:28 03/14/18 06:28 PT 18.3 SECONDS (9.7-12.2) H 03/11/18 07:56 INR 1.6 03/11/18 07:56 APTT 41 SECONDS (21-34) H 03/11/18 07:56 Attending/Attestation - Attestation I have personally seen and examined this patient.: Yes I have fully participated in the care of the patient.: Yes I have reviewed all pertinent clinical information, including history, physical exam and plan: Yes Notes (Text): case seen and d.w staff and resident, concurred with finding and management..
[2018-03-13 18:52] LABS: URINE BACTERIA OCC (<OCC); URINE BILIRUBIN NEGATIVE (NEGATIVE); URINE BLOOD 3+ (NEGATIVE); URINE CLARITY Turbid (Clear); URINE COLOR Amber (YELLOW); URINE GLUCOSE (UA) NORMAL (Normal); URINE LEUKOCYTE ESTERASE 2+ Leu/uL (Negative); URINE PROTEIN 2+ mg/dL (NEGATIVE)
--- NOTE | 2018-03-13 19:13 | CP.PCM.PN ---
Subjective - Date & Time of Evaluation Date of Evaluation: 03/13/18 Time of Evaluation: 10:00 - Subjective Subjective: clinically same Objective - Vital Signs/Intake and Output Vital Signs (last 24 hours): Temp Pulse Resp BP Pulse Ox 98.2 F 90 18 115/54 L 99 03/13/18 15:00 03/13/18 15:00 03/13/18 15:00 03/13/18 15:00 03/13/18 15:00 Intake and Output: 03/13/18 03/14/18 18:59 06:59 Intake Total 180 Balance 180 - Medications Medications: Current Medications Albuterol/Ipratropium (Duoneb 3 Mg/0.5 Mg (3 Ml) Ud) 3 ml IH RQ6 [facility] Last Admin: 03/13/18 13:16 Dose: 3 ml Enoxaparin Sodium (Lovenox) 30 mg SC DAILY [facility] Last Admin: 03/13/18 09:02 Dose: 30 mg Ferrous Sulfate (Feosol) 325 mg PO DAILY [facility] Last Admin: 03/13/18 09:03 Dose: 325 mg Folic Acid (Folic Acid) 1 mg PO DAILY [facility] Last Admin: 03/13/18 09:02 Dose: 1 mg Furosemide (Lasix) 40 mg PO DAILY [facility] Last Admin: 03/13/18 09:07 Dose: 40 mg Insulin Detemir (Levemir) 20 unit SC HS [facility] [place] Last Admin: 03/12/18 21:28 Dose: 20 unit Insulin Human Regular (Novolin R) 0 unit SC ACHS [facility] [place] PRN Reason: Protocol Last Admin: 03/13/18 17:18 Dose: Not Given Lactulose (Enulose) 20 gm PO TID [facility] Last Admin: 03/13/18 14:31 Dose: Not Given Lactulose (Generlac) 200 gm [place] TID [facility] Last Admin: 03/13/18 18:31 Dose: 200 gm Multivitamins (Hexavitamin) 1 tab PO DAILY [facility] Last Admin: 03/13/18 09:02 Dose: 1 tab Propranolol HCl (Inderal) 10 mg PO Q12H [facility] Last Admin: 03/13/18 12:24 Dose: Not Given Rifaximin (Xifaxan) 550 mg PO BID [facility] PRN Reason: Protocol Last Admin: 03/13/18 18:31 Dose: 550 mg Saccharomyces Boulardii (Florastor) 250 mg PO DAILY [facility] Last Admin: 03/13/18 09:03 Dose: 250 mg Tramadol HCl (Ultram) 50 mg PO Q6 PRN PRN Reason: pain Last Admin: 03/12/18 17:41 Dose: 50 mg - Labs Labs: 03/13/18 06:45 03/13/18 06:45 PT 18.3 SECONDS (9.7-12.2) H 03/11/18 07:56 INR 1.6 03/11/18 07:56 APTT 41 SECONDS (21-34) H 03/11/18 07:56 - Constitutional Appears: Well - Head Exam Head Exam: ATRAUMATIC, NORMAL INSPECTION, NORMOCEPHALIC - Eye Exam Eye Exam: EOMI, Normal appearance, PERRL Pupil Exam: NORMAL ACCOMODATION, PERRL - ENT Exam ENT Exam: Mucous Membranes Moist, Normal Exam - Neck Exam Neck Exam: Full ROM, Normal Inspection. absent: Lymphadenopathy - Respiratory Exam Respiratory Exam: Decreased Breath Sounds - Cardiovascular Exam Cardiovascular Exam: REGULAR RHYTHM, +S1, +S2 - GI/Abdominal Exam GI & Abdominal Exam: Soft, Diminished Bowel Sounds - Rectal Exam Rectal Exam: Deferred
[2018-03-13] MEDS: Insulin Detemir 100 units/ml Vial (Levemir) SC SCH (21:45)
[2018-03-14] MEDS: Albuterol-Ipratrop 3 mg / 0.5 (3 ml) UD IH SCH ×4 (01:45→19:44)
[2018-03-14 06:37] LABS: BASO % 0.6 % (0.0-2.0); HEMOGLOBIN 8.8 g/dL (11.0-16.0); LYMPH # 0.5 K/uL (1.0-4.3); LYMPH % 27.6 % (20.0-40.0); MEAN CELL VOLUME 96.7 fL (81.0-99.0); MEAN CORPUSCULAR HEMOGLOBIN 34.1 pg (27.0-31.0); MEAN CORPUSCULAR HGB CONC 35.3 g/dL (33.0-37.0); MEAN PLATELET VOLUME 8.7 fL (7.2-11.7); MONO # 0.1 K/uL (0.0-0.8); MONO % 5.9 % (0.0-10.0); NEUT # 1.1 K/uL (1.8-7.0); NEUT % 64.9 % (50.0-75.0); NRBC % 0.1 % (0.0-2.0); RBC 2.57 Mil/uL (3.80-5.20); RED CELL DISTRIBUTION WIDTH 15.5 % (11.5-14.5)
[2018-03-14 06:48] LABS: WHITE BLOOD COUNT 1.6 K/uL (4.8-10.8)
[2018-03-14 06:56] LABS: ALB/GLOB RATIO 0.6 (1.0-2.1); ALT/SGPT 34 U/L (9-52); AST/SGOT 67 U/L (14-36); BLOOD UREA NITROGEN 12 mg/dL (7-17); CALCIUM 8.1 mg/dl (8.6-10.4); GFR AFRICAN-AMERICAN > 60; GFR NON-AFRICAN AMERICAN > 60
[2018-03-14] MEDS: (Novolin R) Insulin Human Regular 100 units/ml vial SC SCH ×4 (08:29→21:32)
[2018-03-14] MEDS: Multiple Vitamins Tab PO SCH (10:32)
[2018-03-14] MEDS: Saccharomyces Boulardi 250 mg Cap PO SCH (10:32)
--- NOTE | 2018-03-14 11:07 | CP.PCM.PN ---
Subjective - Date & Time of Evaluation Date of Evaluation: 03/14/18 Time of Evaluation: 11:07 - Subjective Subjective: PGY2 progress note for Dr. Coronado Pt seen and examined at bedside today. She is awake and answering questions after prompting multiple times. A&Ox1. Denies having any CP, SOB, abd pain, N/ V. Patient has you in place with hemturia. Patient tolerating diet. Objective - Vital Signs/Intake and Output Vital Signs (last 24 hours): Temp Pulse Resp BP Pulse Ox 97.9 F 86 18 98/55 L 97 03/14/18 07:00 03/14/18 07:00 03/14/18 07:00 03/14/18 10:34 03/14/18 07:00 Intake and Output: 03/14/18 03/14/18 06:59 18:59 Output Total 100 Balance -100 - Medications Medications: Current Medications Albuterol/Ipratropium (Duoneb 3 Mg/0.5 Mg (3 Ml) Ud) 3 ml IH RQ6 [facility] Last Admin: 03/14/18 07:53 Dose: Not Given Enoxaparin Sodium (Lovenox) 30 mg SC DAILY [facility] Last Admin: 03/13/18 09:02 Dose: 30 mg Ferrous Sulfate (Feosol) 325 mg PO DAILY [facility] Last Admin: 03/14/18 10:32 Dose: 325 mg Folic Acid (Folic Acid) 1 mg PO DAILY [facility] Last Admin: 03/14/18 10:32 Dose: 1 mg Furosemide (Lasix) 40 mg PO DAILY [facility] Last Admin: 03/14/18 10:34 Dose: Not Given Ceftriaxone Sodium (Rocephin Iv 1 Gm Duplex) 50 mls @ 100 mls/hr IVPB DAILY [facility] PRN Reason: Protocol Insulin Detemir (Levemir) 20 unit SC HS [facility] Last Admin: 03/13/18 21:45 Dose: 20 unit Insulin Human Regular (Novolin R) 0 unit SC ACHS [facility] PRN Reason: Protocol Last Admin: 03/14/18 08:29 Dose: 3 unit Lactulose (Enulose) 20 gm PO TID [facility] Last Admin: 03/14/18 10:31 Dose: 20 gm Lactulose (Generlac) 200 gm KS TID [facility] Last Admin: 03/13/18 18:31 Dose: 200 gm Multivitamins (Hexavitamin) 1 tab PO DAILY [facility] Last Admin: 03/14/18 10:32 Dose: 1 tab Propranolol HCl (Inderal) 10 mg PO Q12H [facility] Last Admin: 03/14/18 01:39 Dose: 10 mg Rifaximin (Xifaxan) 550 mg PO BID [facility] PRN Reason: Protocol Last Admin: 03/14/18 10:33 Dose: 550 mg Saccharomyces Boulardii (Florastor) 250 mg PO DAILY [facility] Last Admin: 03/14/18 10:32 Dose: 250 mg Tramadol HCl (Ultram) 50 mg PO Q6 PRN PRN Reason: pain Last Admin: 03/14/18 03:22 Dose: 50 mg - Labs Labs: 03/14/18 06:28 03/14/18 06:28 PT 18.3 SECONDS (9.7-12.2) H 03/11/18 07:56 INR 1.6 03/11/18 07:56 APTT 41 SECONDS (21-34) H 03/11/18 07:56 - Constitutional Appears: Non-toxic, No Acute Distress - Head Exam Head Exam: ATRAUMATIC - ENT Exam ENT Exam: Mucous Membranes Moist - Respiratory Exam Respiratory Exam: Clear to Ausculation Bilateral. absent: Accessory Muscle Use , Rales, Rhonchi, Wheezes, Respiratory Distress - Cardiovascular Exam Cardiovascular Exam: REGULAR RHYTHM, +S1, +S2. absent: Gallop, Rubs, Murmur - GI/Abdominal Exam GI & Abdominal Exam: Soft, Normal Bowel Sounds. absent: Distended, Firm, Guarding, Rigid, Tenderness, Organomegaly - Extremities Exam Extremities Exam: absent: Pedal Edema, Tenderness - Neurological Exam Neurological Exam: Alert, Awake - Psychiatric Exam Psychiatric exam: Normal Affect, Normal Mood - Skin Skin Exam: Dry, Intact, Normal Color, Warm Assessment and Plan - Assessment and Plan (Free Text) Assessment: 72 year old female with past medical history of cirrhosis with protal HTN, pancytopenia due to cirrohsis and hypersplenism is admitted for panctopenia Cirrhosis - Currently encephalopathic likely due to elevated ammonia - Continue lactulose PO TID and rifaximin 550 mg po BID - MELD score of 18 with poor prognosis - GI, Dr. Lazo is consulted Encephalopathic - Mental status is improving - Likely due to elevated ammonia level - CT of head - chronic changes Pancytopenia - WBC count improved today - ANC is 668 so no recommendation for neutropenic precautions - Dr. Maciel consulted - check ferritin levels, do not recommend neupogen or platelet transfusions unless patient is bleeding or febrile Hematuria - Discontinued you. Likely 2/2 to thrombocytopenia. - Heme/onc, Dr. Maciel consulted. Recommended transfusing 1 unit FFP and 1 unit platelets due to active bleeding - Urology consulted - help appreciated UTI - Urine culture positive for gram negative rods - Pt has penicillin allergy - Will start pt on cipro 400 IV mg BID Hypokalemaia Replaced as needed monitor K/Mg level tomorrow Prophylaxis - lovenox 30 sc - held due to hematuria and thrombocytopenia - no indications for gi prophylaxis Case discussed with attending, Dr. Coronado. All orders and recs per Dr. Coronado.
[2018-03-14] MEDS ORDERED: cefTRIAXone IV 1 gm in Dextros 50 ML IVPB SCH (11:15)
--- NOTE | 2018-03-14 11:34 | CP.PCM.PN ---
Subjective - Date & Time of Evaluation Date of Evaluation: 03/14/18 Time of Evaluation: 11:32 - Subjective Subjective: CC: follow up encephalopathy Mental status back to baseline Confused Objective - Vital Signs/Intake and Output Vital Signs (last 24 hours): Temp Pulse Resp BP Pulse Ox 97.9 F 86 18 98/55 L 97 03/14/18 07:00 03/14/18 07:00 03/14/18 07:00 03/14/18 10:34 03/14/18 07:00 Intake and Output: 03/14/18 03/14/18 06:59 18:59 Output Total 100 Balance -100 - Medications Medications: Current Medications Albuterol/Ipratropium (Duoneb 3 Mg/0.5 Mg (3 Ml) Ud) 3 ml IH RQ6 [facility] Last Admin: 03/14/18 07:53 Dose: Not Given Enoxaparin Sodium (Lovenox) 30 mg SC DAILY [facility] Last Admin: 03/13/18 09:02 Dose: 30 mg Ferrous Sulfate (Feosol) 325 mg PO DAILY [facility] Last Admin: 03/14/18 10:32 Dose: 325 mg Folic Acid (Folic Acid) 1 mg PO DAILY [facility] Last Admin: 03/14/18 10:32 Dose: 1 mg Furosemide (Lasix) 40 mg PO DAILY [facility] Last Admin: 03/14/18 10:34 Dose: Not Given Ciprofloxacin (Cipro 400mg/200ml Dsw) 400 mg in 200 mls @ 133 mls/hr IVPB Q12H [facility] PRN Reason: Protocol Insulin Detemir (Levemir) 20 unit SC HS [facility] Last Admin: 03/13/18 21:45 Dose: 20 unit Insulin Human Regular (Novolin R) 0 unit SC ACHS [facility] PRN Reason: Protocol Last Admin: 03/14/18 08:29 Dose: 3 unit Lactulose (Enulose) 20 gm PO TID [facility] Last Admin: 03/14/18 10:31 Dose: 20 gm Multivitamins (Hexavitamin) 1 tab PO DAILY [facility] Last Admin: 03/14/18 10:32 Dose: 1 tab Propranolol HCl (Inderal) 10 mg PO Q12H [facility] Last Admin: 03/14/18 01:39 Dose: 10 mg Rifaximin (Xifaxan) 550 mg PO BID [facility] PRN Reason: Protocol Last Admin: 03/14/18 10:33 Dose: 550 mg Saccharomyces Boulardii (Florastor) 250 mg PO DAILY [facility] Last Admin: 03/14/18 10:32 Dose: 250 mg Tramadol HCl (Ultram) 50 mg PO Q6 PRN PRN Reason: pain Last Admin: 03/14/18 03:22 Dose: 50 mg - Labs Labs: 03/14/18 06:28 03/14/18 06:28 PT 18.3 SECONDS (9.7-12.2) H 03/11/18 07:56 INR 1.6 03/11/18 07:56 APTT 41 SECONDS (21-34) H 03/11/18 07:56 - Constitutional Appears: Chronically Ill - Head Exam Head Exam: NORMOCEPHALIC - Eye Exam Eye Exam: Scleral icterus - Respiratory Exam Respiratory Exam: NORMAL BREATHING PATTERN - Cardiovascular Exam Cardiovascular Exam: REGULAR RHYTHM - GI/Abdominal Exam GI & Abdominal Exam: Soft. absent: Tenderness, Organomegaly Assessment and Plan (1) Pancytopenia Assessment & Plan: Chronic, stable Status: Acute (2) Cirrhosis Assessment & Plan: Chronic, decompensated Encephalopathy improved on Rifaximin and Lactulose Status: Acute
[2018-03-14 14:46] LABS: INR 1.6; PROTHROMBIN TIME 17.9 SECONDS (9.7-12.2)
--- NOTE | 2018-03-14 17:38 | CP.PCM.CON ---
Past Patient History - Infectious Disease Hx of Infectious Diseases: None - Past Medical History & Family History Past Medical History?: Yes - Past Social History Smoking Status: Former Smoker - CARDIAC Hx Hypertension: Yes - PULMONARY Hx Asthma: Yes Hx Bronchitis: Yes - NEUROLOGICAL Other/Comment: SEVERE NEUROPATHY, hepatic encephalopathy. subdural hematoma - HEENT Hx HEENT Problems: Yes Other/Comment: Dimished vision bilateral - RENAL Hx Chronic Kidney Disease: No - ENDOCRINE/METABOLIC Hx Endocrine Disorders: Yes Hx Diabetes Mellitus Type 1: Yes Hx Diabetes Mellitus Type 2: Yes - HEMATOLOGICAL/ONCOLOGICAL Hx Anemia: Yes (with Pancytopenia) - INTEGUMENTARY Hx Psoriasis: Yes - MUSCULOSKELETAL/RHEUMATOLOGICAL Hx Arthritis: Yes (L KNEE SEVERE OA) Hx Fractures: Yes (right hip) Hx Osteoporosis: Yes - GASTROINTESTINAL Hx Crohn's Disease: Yes Hx Diverticulitis: Yes Hx Gall Bladder Disease: Yes Hx Gastritis: Yes - GENITOURINARY/GYNECOLOGICAL Hx Genitourinary Disorders: No - PSYCHIATRIC Hx Anxiety: Yes Hx Depression: Yes Hx Substance Use: No - SURGICAL HISTORY Hx Appendectomy: Yes Hx Cholecystectomy: Yes - ANESTHESIA Hx Anesthesia: Yes Hx Anesthesia Reactions: No Hx Malignant Hyperthermia: No Meds Allergies/Adverse Reactions: Allergies Allergy/AdvReac Type Severity Reaction Status Date / Time acetaminophen [From Percocet] Allergy RASH Verified 11/08/17 20:36 aspirin Allergy RASH Verified 11/08/17 20:36 oxycodone HCl [From Percocet] Allergy RASH Verified 11/08/17 20:36 Penicillins Allergy RASH Verified 11/08/17 20:36 PAIN MEDICATIONS Allergy Uncoded 11/08/17 20:36 - Medications Medications: Current Medications Albuterol/Ipratropium (Duoneb 3 Mg/0.5 Mg (3 Ml) Ud) 3 ml IH RQ6 [facility] Last Admin: 03/14/18 13:30 Dose: Not Given Enoxaparin Sodium (Lovenox) 30 mg SC DAILY [facility] Last Admin: 03/13/18 09:02 Dose: 30 mg Ferrous Sulfate (Feosol) 325 mg PO DAILY [facility] Last Admin: 03/14/18 10:32 Dose: 325 mg Folic Acid (Folic Acid) 1 mg PO DAILY [facility] Last Admin: 03/14/18 10:32 Dose: 1 mg Furosemide (Lasix) 40 mg PO DAILY [facility] Last Admin: 03/14/18 10:34 Dose: Not Given Ciprofloxacin (Cipro 400mg/200ml Dsw) 400 mg in 200 mls @ 133 mls/hr IVPB Q12H [facility] PRN Reason: Protocol Insulin Detemir (Levemir) 20 unit SC HS [facility] Last Admin: 03/13/18 21:45 Dose: 20 unit Insulin Human Regular (Novolin R) 0 unit SC ACHS [facility] PRN Reason: Protocol Last Admin: 03/14/18 12:00 Dose: 3 unit Lactulose (Enulose) 20 gm PO TID [facility] Last Admin: 03/14/18 14:41 Dose: Not Given Multivitamins (Hexavitamin) 1 tab PO DAILY [facility] Last Admin: 03/14/18 10:32 Dose: 1 tab Propranolol HCl (Inderal) 10 mg PO Q12H [facility] Last Admin: 03/14/18 13:20 Dose: Not Given Rifaximin (Xifaxan) 550 mg PO BID [facility] PRN Reason: Protocol Last Admin: 03/14/18 10:33 Dose: 550 mg Saccharomyces Boulardii (Florastor) 250 mg PO DAILY [facility] Last Admin: 03/14/18 10:32 Dose: 250 mg Tramadol HCl (Ultram) 50 mg PO Q6 [facility] PRN Reason: pain Last Admin: 03/14/18 03:22 Dose: 50 mg Results - Vital Signs Recent Vital Signs: Last Vital Signs Temp 98 F 03/14/18 16:04 Pulse 83 03/14/18 16:04 Resp 20 03/14/18 16:04 BP 118/62 03/14/18 16:04 Pulse Ox 96 03/14/18 16:04 - Labs Result Diagrams: 03/14/18 06:28 03/14/18 06:28 Labs: Laboratory Results - last 24 hr 03/13/18 03/13/18 03/14/18 18:36 21:02 06:11 WBC RBC Hgb Hct MCV MCH MCHC RDW Plt Count MPV Neut % (Auto) Lymph % (Auto) [place] % (Auto) Eos % (Auto) Baso % (Auto) Neut # (Auto) Lymph # (Auto) [place] # (Auto) Eos # (Auto) Baso # (Auto) PT INR APTT Sodium Potassium Chloride Carbon Dioxide Anion Gap BUN Creatinine Est GFR ( Amer) Est GFR (Non-Af Amer) POC Glucose (mg/dL) 209 H 207 H Random Glucose Calcium Phosphorus Magnesium Total Bilirubin AST ALT Alkaline Phosphatase Total Protein Albumin Globulin Albumin/Globulin Ratio Urine Color July Urine Clarity Turbid Urine pH 5.0 Ur Specific [place] 1.012 Urine Protein 2+ H Urine Glucose (UA) Normal Urine Ketones Negative Urine Blood 3+ H Urine Nitrate Positive H Urine Bilirubin Negative Urine Urobilinogen 4.0 H Ur Leukocyte Esterase 2+ H Urine WBC (Auto) 35 H Urine RBC (Auto) 1941 H Urine Bacteria Occ H Hyaline Casts 11-20 H Blood Type Antibody Screen Antibody Identification 03/14/18 03/14/18 03/14/18 06:28 06:28 11:17 WBC 1.6 L* RBC 2.57 L Hgb 8.8 L Hct 24.8 L MCV 96.7 MCH 34.1 H MCHC 35.3 RDW 15.5 H Plt Count 28 L* MPV 8.7 Neut % (Auto) 64.9 Lymph % (Auto) 27.6 [place] % (Auto) 5.9 Eos % (Auto) 1.0 Baso % (Auto) 0.6 Neut # (Auto) 1.1 L Lymph # (Auto) 0.5 L [place] # (Auto) 0.1 Eos # (Auto) 0.0 Baso # (Auto) 0.0 PT INR APTT Sodium 136 Potassium 3.5 L Chloride 99 Carbon Dioxide 31 H Anion Gap 9 L BUN 12 Creatinine 0.6 L Est GFR ( Amer) > 60 Est GFR (Non-Af Amer) > 60 POC Glucose (mg/dL) 196 H Random Glucose 216 H Calcium 8.1 L Phosphorus 2.9 Magnesium 1.6 Total Bilirubin 5.0 H AST 67 H ALT 34 Alkaline Phosphatase 135 H Total Protein 5.3 L Albumin 2.0 L D Globulin 3.3 Albumin/Globulin Ratio 0.6 L Urine Color Urine Clarity Urine pH Ur Specific [place] Urine Protein Urine Glucose (UA) Urine Ketones Urine Blood Urine Nitrate Urine Bilirubin Urine Urobilinogen Ur Leukocyte Esterase Urine WBC (Auto) Urine RBC (Auto) Urine Bacteria Hyaline Casts Blood Type Antibody Screen Antibody Identification 03/14/18 03/14/18 14:20 14:32 WBC RBC Hgb Hct MCV MCH MCHC RDW Plt Count MPV Neut % (Auto) Lymph % (Auto) [place] % (Auto) Eos % (Auto) Baso % (Auto) Neut # (Auto) Lymph # (Auto) [place] # (Auto) Eos # (Auto) Baso # (Auto) PT 17.9 H INR 1.6 APTT 35 H Sodium Potassium Chloride Carbon Dioxide Anion Gap BUN Creatinine Est GFR ( Amer) Est GFR (Non-Af Amer) POC Glucose (mg/dL) Random Glucose Calcium Phosphorus Magnesium Total Bilirubin AST ALT Alkaline Phosphatase Total Protein Albumin Globulin Albumin/Globulin Ratio Urine Color Urine Clarity Urine pH Ur Specific [place] Urine Protein Urine Glucose (UA) Urine Ketones Urine Blood Urine Nitrate Urine Bilirubin Urine Urobilinogen Ur Leukocyte Esterase Urine WBC (Auto) Urine RBC (Auto) Urine Bacteria Hyaline Casts Blood Type O POSITIVE Antibody Screen Positive Antibody Identification Anti E Assessment & Plan - Assessment and Plan (Free Text) Assessment: Imp: Hemturia. DDX: infection, neoplasia, urolithiasis, hematologic pathology Cirrhosis DM Hypertension Pancytopenia Confusion Thank you. YS - Date & Time Date: 03/14/18 Time: 12:25
--- NOTE | 2018-03-14 19:31 | CP.PCM.PN ---
Subjective - Date & Time of Evaluation Date of Evaluation: 03/14/18 Time of Evaluation: 09:20 - Subjective Subjective: clinically same Objective - Vital Signs/Intake and Output Vital Signs (last 24 hours): Temp Pulse Resp BP Pulse Ox 97.9 F 87 18 120/70 96 03/14/18 19:20 03/14/18 19:20 03/14/18 19:20 03/14/18 19:20 03/14/18 16:04 Intake and Output: 03/14/18 03/15/18 18:59 06:59 Intake Total 140 0 Balance 140 0 - Medications Medications: Current Medications Albuterol/Ipratropium (Duoneb 3 Mg/0.5 Mg (3 Ml) Ud) 3 ml IH RQ6 [facility] Last Admin: 03/14/18 13:30 Dose: Not Given Enoxaparin Sodium (Lovenox) 30 mg SC DAILY [facility] Last Admin: 03/13/18 09:02 Dose: 30 mg Ferrous Sulfate (Feosol) 325 mg PO DAILY [facility] Last Admin: 03/14/18 10:32 Dose: 325 mg Folic Acid (Folic Acid) 1 mg PO DAILY [facility] Last Admin: 03/14/18 10:32 Dose: 1 mg Furosemide (Lasix) 40 mg PO DAILY [facility] Last Admin: 03/14/18 10:34 Dose: Not Given Ciprofloxacin (Cipro 400mg/200ml Dsw) 400 mg in 200 mls @ 133 mls/hr IVPB Q12H [facility] PRN Reason: Protocol Insulin Detemir (Levemir) 20 unit SC HS [facility] Last Admin: 03/13/18 21:45 Dose: 20 unit Insulin Human Regular (Novolin R) 0 unit SC ACHS [facility] PRN Reason: Protocol Last Admin: 03/14/18 17:54 Dose: 2 unit Lactulose (Enulose) 20 gm PO TID [facility] Last Admin: 03/14/18 17:55 Dose: 20 gm Multivitamins (Hexavitamin) 1 tab PO DAILY [facility] Last Admin: 03/14/18 10:32 Dose: 1 tab Propranolol HCl (Inderal) 10 mg PO Q12H [facility] Last Admin: 03/14/18 13:20 Dose: Not Given Rifaximin (Xifaxan) 550 mg PO BID [facility] PRN Reason: Protocol Last Admin: 03/14/18 17:54 Dose: 550 mg Saccharomyces Boulardii (Florastor) 250 mg PO DAILY [facility] Last Admin: 03/14/18 10:32 Dose: 250 mg Tramadol HCl (Ultram) 50 mg PO Q6 PRN PRN Reason: pain Last Admin: 03/14/18 03:22 Dose: 50 mg - Labs Labs: 03/14/18 06:28 03/14/18 06:28 PT 17.9 SECONDS (9.7-12.2) H 03/14/18 14:32 INR 1.6 03/14/18 14:32 APTT 35 SECONDS (21-34) H 03/14/18 14:32 - Constitutional Appears: Well - Head Exam Head Exam: ATRAUMATIC, NORMAL INSPECTION, NORMOCEPHALIC - Eye Exam Eye Exam: EOMI, Normal appearance, PERRL Pupil Exam: NORMAL ACCOMODATION, PERRL - ENT Exam ENT Exam: Mucous Membranes Moist, Normal Exam - Neck Exam Neck Exam: Full ROM, Normal Inspection. absent: Lymphadenopathy - Respiratory Exam Respiratory Exam: Decreased Breath Sounds - Cardiovascular Exam Cardiovascular Exam: REGULAR RHYTHM, +S1, +S2 - GI/Abdominal Exam GI & Abdominal Exam: Soft, Diminished Bowel Sounds - Rectal Exam Rectal Exam: Deferred
[2018-03-14] MEDS: Insulin Detemir 100 units/ml Vial (Levemir) SC SCH (21:27)
[2018-03-15] MEDS: Ciprofloxacin 400mg/200ml D5W 400 MG/200 ML BAG IVPB SCH ×2 (00:50→11:00)
[2018-03-15] MEDS: Albuterol-Ipratrop 3 mg / 0.5 (3 ml) UD IH SCH ×4 (01:33→19:43)
[2018-03-15 06:37] LABS: BASO % 0.4 % (0.0-2.0); EOS % 1.5 % (0.0-4.0); HEMOGLOBIN 8.7 g/dL (11.0-16.0); LYMPH # 0.1 K/uL (1.0-4.3); LYMPH % 12.5 % (20.0-40.0); MEAN CELL VOLUME 97.2 fL (81.0-99.0); MEAN CORPUSCULAR HEMOGLOBIN 34.9 pg (27.0-31.0); MEAN CORPUSCULAR HGB CONC 35.9 g/dL (33.0-37.0); MEAN PLATELET VOLUME 8.6 fL (7.2-11.7); MONO # 0.1 K/uL (0.0-0.8); MONO % 5.9 % (0.0-10.0); NEUT # 0.8 K/uL (1.8-7.0); NEUT % 79.7 % (50.0-75.0); RBC 2.48 Mil/uL (3.80-5.20); RED CELL DISTRIBUTION WIDTH 15.5 % (11.5-14.5)
[2018-03-15 06:55] LABS: ALB/GLOB RATIO 0.6 (1.0-2.1); ALBUMIN 2.2 g/dL (3.5-5.0); ALT/SGPT 32 U/L (9-52); AST/SGOT 73 U/L (14-36); BLOOD UREA NITROGEN 12 mg/dL (7-17); CALCIUM 8.2 mg/dl (8.6-10.4); GFR AFRICAN-AMERICAN > 60; GFR NON-AFRICAN AMERICAN > 60
[2018-03-15 07:20] LABS: HEPATITIS B SURFACE AG Negative (NEGATIVE)
[2018-03-15 07:25] LABS: HEPATITIS A IGM NEGATIVE (NEGATIVE); HEPATITIS B CORE AB NEGATIVE (NEGATIVE)
[2018-03-15] MEDS: (Novolin R) Insulin Human Regular 100 units/ml vial SC SCH ×4 (08:09→21:28)
[2018-03-15] MEDS: Potassium Chloride 10 mEq ER Tab PO SCH (08:16)
[2018-03-15] MEDS: Multiple Vitamins Tab PO SCH (09:10)
[2018-03-15] MEDS: Saccharomyces Boulardi 250 mg Cap PO SCH (09:10)
[2018-03-15 10:35] LABS: HEPATITIS C ANTIBODY REACTIVE (NEGATIVE)
--- NOTE | 2018-03-15 11:30 | CP.PCM.PN ---
Subjective - Date & Time of Evaluation Date of Evaluation: 03/15/18 Time of Evaluation: 11:27 - Subjective Subjective: COVERING DR RIGGS/MELINDA No new c/o. No bleeding or melena Objective - Vital Signs/Intake and Output Vital Signs (last 24 hours): Temp Pulse Resp BP Pulse Ox 98.1 F 76 20 130/68 95 03/15/18 07:00 03/15/18 07:00 03/15/18 07:00 03/15/18 09:10 03/15/18 07:00 Intake and Output: 03/15/18 03/15/18 06:59 18:59 Intake Total 450 Balance 450 - Medications Medications: Current Medications Albuterol/Ipratropium (Duoneb 3 Mg/0.5 Mg (3 Ml) Ud) 3 ml IH RQ6 [facility] Last Admin: 03/15/18 07:20 Dose: 3 ml Enoxaparin Sodium (Lovenox) 30 mg SC DAILY [facility] Last Admin: 03/13/18 09:02 Dose: 30 mg Ferrous Sulfate (Feosol) 325 mg PO DAILY [facility] Last Admin: 03/15/18 09:10 Dose: 325 mg Folic Acid (Folic Acid) 1 mg PO DAILY [facility] Last Admin: 03/15/18 09:10 Dose: 1 mg Furosemide (Lasix) 40 mg PO DAILY [facility] Last Admin: 03/15/18 09:10 Dose: 40 mg Ciprofloxacin (Cipro 400mg/200ml Dsw) 400 mg in 200 mls @ 133 mls/hr IVPB Q12H [facility] PRN Reason: Protocol Last Admin: 03/15/18 00:50 Dose: 133 mls/hr Insulin Detemir (Levemir) 20 unit SC HS [facility] Last Admin: 03/14/18 21:27 Dose: 20 unit Insulin Human Regular (Novolin R) 0 unit SC ACHS [facility] PRN Reason: Protocol Last Admin: 03/15/18 08:09 Dose: 4 unit Lactulose (Enulose) 20 gm PO TID [facility] Last Admin: 03/15/18 09:10 Dose: 20 gm Multivitamins (Hexavitamin) 1 tab PO DAILY [facility] Last Admin: 03/15/18 09:10 Dose: 1 tab Potassium Chloride (Klor-Con 10) 10 meq PO DAILY@0800 [facility] Last Admin: 03/15/18 08:16 Dose: 10 meq Propranolol HCl (Inderal) 10 mg PO Q12H [facility] Last Admin: 03/15/18 00:50 Dose: 10 mg Rifaximin (Xifaxan) 550 mg PO BID [facility] PRN Reason: Protocol Last Admin: 03/15/18 09:11 Dose: 550 mg Saccharomyces Boulardii (Florastor) 250 mg PO DAILY [facility] Last Admin: 03/15/18 09:10 Dose: 250 mg Tramadol HCl (Ultram) 50 mg PO Q6 PRN PRN Reason: pain Last Admin: 03/14/18 03:22 Dose: 50 mg - Labs Labs: 03/15/18 06:29 03/15/18 06:29 PT 17.9 SECONDS (9.7-12.2) H 03/14/18 14:32 INR 1.6 03/14/18 14:32 APTT 35 SECONDS (21-34) H 03/14/18 14:32 - Constitutional Appears: No Acute Distress - Head Exam Head Exam: ATRAUMATIC - Eye Exam Eye Exam: EOMI, PERRL - Respiratory Exam Respiratory Exam: NORMAL BREATHING PATTERN - Cardiovascular Exam Cardiovascular Exam: REGULAR RHYTHM - GI/Abdominal Exam GI & Abdominal Exam: Soft, Normal Bowel Sounds. absent: Tenderness Assessment and Plan (1) Cirrhosis Assessment & Plan: as below. Status: Chronic (2) Hepatic encephalopathy Assessment & Plan: Back to baseline. Continue Xifaxin and Lactulose daily. Status: Acute (3) Pancytopenia Assessment & Plan: monitor cbc. Status: Acute
--- NOTE | 2018-03-15 19:24 | CP.PCM.PN ---
Subjective - Date & Time of Evaluation Date of Evaluation: 03/15/18 Time of Evaluation: 09:00 - Subjective Subjective: clinically same Objective - Vital Signs/Intake and Output Vital Signs (last 24 hours): Temp Pulse Resp BP Pulse Ox 98.2 F 83 20 107/57 L 96 03/15/18 15:00 03/15/18 15:00 03/15/18 15:00 03/15/18 15:00 03/15/18 15:00 Intake and Output: 03/15/18 03/16/18 18:59 06:59 Intake Total 550 Balance 550 - Medications Medications: Current Medications Albuterol/Ipratropium (Duoneb 3 Mg/0.5 Mg (3 Ml) Ud) 3 ml IH RQ6 [facility] Last Admin: 03/15/18 13:25 Dose: Not Given Enoxaparin Sodium (Lovenox) 30 mg SC DAILY [facility] Last Admin: 03/13/18 09:02 Dose: 30 mg Ferrous Sulfate (Feosol) 325 mg PO DAILY [facility] Last Admin: 03/15/18 09:10 Dose: 325 mg Folic Acid (Folic Acid) 1 mg PO DAILY [facility] Last Admin: 03/15/18 09:10 Dose: 1 mg Furosemide (Lasix) 40 mg PO DAILY [facility] Last Admin: 03/15/18 09:10 Dose: 40 mg Ciprofloxacin (Cipro 400mg/200ml Dsw) 400 mg in 200 mls @ 133 mls/hr IVPB Q12H [facility] PRN Reason: Protocol Last Admin: 03/15/18 11:00 Dose: 133 mls/hr Insulin Detemir (Levemir) 20 unit SC HS [facility] Last Admin: 03/14/18 21:27 Dose: 20 unit Insulin Human Regular (Novolin R) 0 unit SC ACHS [facility] PRN Reason: Protocol Last Admin: 03/15/18 11:59 Dose: 4 unit Lactulose (Enulose) 20 gm PO TID [facility] Last Admin: 03/15/18 13:04 Dose: Not Given Multivitamins (Hexavitamin) 1 tab PO DAILY [facility] Last Admin: 03/15/18 09:10 Dose: 1 tab Potassium Chloride (Klor-Con 10) 10 meq PO DAILY@0800 [facility] Last Admin: 03/15/18 08:16 Dose: 10 meq Propranolol HCl (Inderal) 10 mg PO Q12H [facility] Last Admin: 03/15/18 13:07 Dose: 10 mg Rifaximin (Xifaxan) 550 mg PO BID [facility] PRN Reason: Protocol Last Admin: 03/15/18 17:00 Dose: 550 mg Saccharomyces Boulardii (Florastor) 250 mg PO DAILY [facility] Last Admin: 03/15/18 09:10 Dose: 250 mg Tramadol HCl (Ultram) 50 mg PO Q6 PRN PRN Reason: pain Last Admin: 03/14/18 03:22 Dose: 50 mg - Labs Labs: 03/15/18 06:29 03/15/18 06:29 PT 17.9 SECONDS (9.7-12.2) H 03/14/18 14:32 INR 1.6 03/14/18 14:32 APTT 35 SECONDS (21-34) H 03/14/18 14:32 - Constitutional Appears: Well - Head Exam Head Exam: ATRAUMATIC, NORMAL INSPECTION, NORMOCEPHALIC - Eye Exam Eye Exam: EOMI, Normal appearance, PERRL Pupil Exam: NORMAL ACCOMODATION, PERRL - ENT Exam ENT Exam: Mucous Membranes Moist, Normal Exam - Neck Exam Neck Exam: Full ROM, Normal Inspection. absent: Lymphadenopathy - Respiratory Exam Respiratory Exam: Decreased Breath Sounds - Cardiovascular Exam Cardiovascular Exam: REGULAR RHYTHM, +S1, +S2 - GI/Abdominal Exam GI & Abdominal Exam: Soft, Diminished Bowel Sounds - Rectal Exam Rectal Exam: Deferred
[2018-03-15] MEDS: Insulin Detemir 100 units/ml Vial (Levemir) SC SCH (21:47)
[2018-03-16] MEDS: Ciprofloxacin 400mg/200ml D5W 400 MG/200 ML BAG IVPB SCH ×2 (00:46→11:46)
[2018-03-16] MEDS: Albuterol-Ipratrop 3 mg / 0.5 (3 ml) UD IH SCH ×4 (01:02→19:33)
[2018-03-16] MEDS: (Novolin R) Insulin Human Regular 100 units/ml vial SC SCH ×4 (07:54→21:55)
[2018-03-16] MEDS: Potassium Chloride 10 mEq ER Tab PO SCH (08:00)
[2018-03-16] MEDS: Saccharomyces Boulardi 250 mg Cap PO SCH (09:56)
[2018-03-16] MEDS: Multiple Vitamins Tab PO SCH (09:56)
--- NOTE | 2018-03-16 10:19 | CP.PCM.PN ---
Subjective - Date & Time of Evaluation Date of Evaluation: 03/16/18 Time of Evaluation: 10:18 - Subjective Subjective: COVERING DR RIGGS/MELINDA Awake and alert though feels weak. No stool according to patient and nurse. Objective - Vital Signs/Intake and Output Vital Signs (last 24 hours): Temp Pulse Resp BP Pulse Ox 98.5 F 84 20 114/63 97 03/15/18 23:06 03/15/18 23:06 03/15/18 23:06 03/15/18 23:06 03/15/18 23:06 - Medications Medications: Current Medications Albuterol/Ipratropium (Duoneb 3 Mg/0.5 Mg (3 Ml) Ud) 3 ml IH RQ6 [facility] Last Admin: 03/16/18 07:35 Dose: 3 ml Enoxaparin Sodium (Lovenox) 30 mg SC DAILY [facility] Last Admin: 03/13/18 09:02 Dose: 30 mg Ferrous Sulfate (Feosol) 325 mg PO DAILY [facility] Last Admin: 03/16/18 09:56 Dose: 325 mg Folic Acid (Folic Acid) 1 mg PO DAILY [facility] Last Admin: 03/16/18 09:57 Dose: 1 mg Furosemide (Lasix) 40 mg PO DAILY [facility] Last Admin: 03/15/18 09:10 Dose: 40 mg Ciprofloxacin (Cipro 400mg/200ml Dsw) 400 mg in 200 mls @ 133 mls/hr IVPB Q12H [facility] PRN Reason: Protocol Last Admin: 03/16/18 00:46 Dose: 133 mls/hr Insulin Detemir (Levemir) 20 unit SC HS [facility] Last Admin: 03/15/18 21:47 Dose: 20 unit Insulin Human Regular (Novolin R) 0 unit SC ACHS [facility] PRN Reason: Protocol Last Admin: 03/16/18 07:54 Dose: 4 unit Lactulose (Enulose) 20 gm PO TID [facility] Last Admin: 03/16/18 09:56 Dose: 20 gm Multivitamins (Hexavitamin) 1 tab PO DAILY [facility] Last Admin: 03/16/18 09:56 Dose: 1 tab Potassium Chloride (Klor-Con 10) 10 meq PO DAILY@0800 [facility] Last Admin: 03/16/18 08:00 Dose: 10 meq Propranolol HCl (Inderal) 10 mg PO Q12H [facility] Last Admin: 03/16/18 00:47 Dose: 10 mg Rifaximin (Xifaxan) 550 mg PO BID [facility] PRN Reason: Protocol Last Admin: 03/16/18 09:57 Dose: 550 mg Saccharomyces Boulardii (Florastor) 250 mg PO DAILY [facility] Last Admin: 03/16/18 09:56 Dose: 250 mg Tramadol HCl (Ultram) 50 mg PO Q6 PRN PRN Reason: pain Last Admin: 03/14/18 03:22 Dose: 50 mg - Labs Labs: 03/15/18 06:29 03/15/18 06:29 PT 17.9 SECONDS (9.7-12.2) H 03/14/18 14:32 INR 1.6 03/14/18 14:32 APTT 35 SECONDS (21-34) H 03/14/18 14:32 - Constitutional Appears: No Acute Distress, Cachectic - Respiratory Exam Respiratory Exam: NORMAL BREATHING PATTERN - Cardiovascular Exam Cardiovascular Exam: REGULAR RHYTHM - GI/Abdominal Exam GI & Abdominal Exam: Soft, Normal Bowel Sounds. absent: Guarding, Tenderness, Mass, Rebound - Extremities Exam Extremities Exam: Normal Inspection Assessment and Plan (1) Cirrhosis Status: Chronic (2) Hepatic encephalopathy Assessment & Plan: On Xifaxan and Lactulose. Increase lactulose to achieve bowel frequency 2-3/day. Check NH3 level Status: Acute (3) Pancytopenia Status: Acute
--- NOTE | 2018-03-16 10:57 | CARD ---
APPROVED REPORT EKG Measurement Heart [id number] <Conclusion> Normal sinus rhythm Normal ECG
--- NOTE | 2018-03-16 16:29 | CP.PCM.PN ---
Subjective - Date & Time of Evaluation Date of Evaluation: 03/16/18 Time of Evaluation: 09:00 - Subjective Subjective: clinically same Objective - Vital Signs/Intake and Output Vital Signs (last 24 hours): Temp Pulse Resp BP Pulse Ox 98.7 F 80 18 117/65 100 03/16/18 15:43 03/16/18 15:43 03/16/18 15:43 03/16/18 15:43 03/16/18 15:43 Intake and Output: 03/16/18 03/16/18 06:59 18:59 Intake Total 360 Balance 360 - Medications Medications: Current Medications Albuterol/Ipratropium (Duoneb 3 Mg/0.5 Mg (3 Ml) Ud) 3 ml IH RQ6 [facility] Last Admin: 03/16/18 13:27 Dose: 3 ml Enoxaparin Sodium (Lovenox) 30 mg SC DAILY [facility] Last Admin: 03/13/18 09:02 Dose: 30 mg Ferrous Sulfate (Feosol) 325 mg PO DAILY [facility] Last Admin: 03/16/18 09:56 Dose: 325 mg Folic Acid (Folic Acid) 1 mg PO DAILY [facility] Last Admin: 03/16/18 09:57 Dose: 1 mg Furosemide (Lasix) 40 mg PO DAILY [facility] Last Admin: 03/16/18 10:00 Dose: 40 mg Ciprofloxacin (Cipro 400mg/200ml Dsw) 400 mg in 200 mls @ 133 mls/hr IVPB Q12H [facility] PRN Reason: Protocol Last Admin: 03/16/18 11:46 Dose: 133 mls/hr Insulin Detemir (Levemir) 20 unit SC HS [facility] Last Admin: 03/15/18 21:47 Dose: 20 unit Insulin Human Regular (Novolin R) 0 unit SC ACHS [facility] PRN Reason: Protocol Last Admin: 03/16/18 12:00 Dose: 4 unit Lactulose (Enulose) 20 gm PO TID [facility] Last Admin: 03/16/18 13:28 Dose: Not Given Multivitamins (Hexavitamin) 1 tab PO DAILY [facility] Last Admin: 03/16/18 09:56 Dose: 1 tab Potassium Chloride (Klor-Con 10) 10 meq PO DAILY@0800 [facility] Last Admin: 03/16/18 08:00 Dose: 10 meq Propranolol HCl (Inderal) 10 mg PO Q12H [facility] Last Admin: 03/16/18 12:43 Dose: 10 mg Rifaximin (Xifaxan) 550 mg PO BID [facility] PRN Reason: Protocol Last Admin: 03/16/18 09:57 Dose: 550 mg Saccharomyces Boulardii (Florastor) 250 mg PO DAILY [facility] Last Admin: 03/16/18 09:56 Dose: 250 mg Tramadol HCl (Ultram) 50 mg PO Q6 [facility] PRN Reason: pain Last Admin: 03/14/18 03:22 Dose: 50 mg - Labs Labs: 03/15/18 06:29 03/15/18 06:29 PT 17.9 SECONDS (9.7-12.2) H 03/14/18 14:32 INR 1.6 03/14/18 14:32 APTT 35 SECONDS (21-34) H 03/14/18 14:32 - Constitutional Appears: Well - Head Exam Head Exam: ATRAUMATIC, NORMAL INSPECTION, NORMOCEPHALIC - Eye Exam Eye Exam: EOMI, Normal appearance, PERRL Pupil Exam: NORMAL ACCOMODATION, PERRL - ENT Exam ENT Exam: Mucous Membranes Moist, Normal Exam - Neck Exam Neck Exam: Full ROM, Normal Inspection. absent: Lymphadenopathy - Respiratory Exam Respiratory Exam: Decreased Breath Sounds - Cardiovascular Exam Cardiovascular Exam: REGULAR RHYTHM, +S1, +S2 - GI/Abdominal Exam GI & Abdominal Exam: Soft, Diminished Bowel Sounds - Rectal Exam Rectal Exam: Deferred
[2018-03-16] MEDS: Insulin Detemir 100 units/ml Vial (Levemir) SC SCH (21:58)
[2018-03-17] MEDS: Ciprofloxacin 400mg/200ml D5W 400 MG/200 ML BAG IVPB SCH ×2 (00:15→11:43)
[2018-03-17] MEDS: Albuterol-Ipratrop 3 mg / 0.5 (3 ml) UD IH SCH ×4 (06:41→19:09)
[2018-03-17 07:33] LABS: BASO % 0.2 % (0.0-2.0); EOS % 1.8 % (0.0-4.0); HEMOGLOBIN 8.9 g/dL (11.0-16.0); LYMPH # 0.4 K/uL (1.0-4.3); MEAN CELL VOLUME 97.9 fL (81.0-99.0); MEAN CORPUSCULAR HEMOGLOBIN 34.3 pg (27.0-31.0); MEAN PLATELET VOLUME 9.3 fL (7.2-11.7); MONO # 0.1 K/uL (0.0-0.8); MONO % 4.9 % (0.0-10.0); NEUT % 69.1 % (50.0-75.0); NRBC % 0.4 % (0.0-2.0); RBC 2.59 Mil/uL (3.80-5.20); RED CELL DISTRIBUTION WIDTH 16.1 % (11.5-14.5)
[2018-03-17 07:44] LABS: WHITE BLOOD COUNT 1.5 K/uL (4.8-10.8)
[2018-03-17] MEDS: (Novolin R) Insulin Human Regular 100 units/ml vial SC SCH ×4 (08:13→21:55)
[2018-03-17] MEDS: Potassium Chloride 10 mEq ER Tab PO SCH (09:00)
[2018-03-17] MEDS: Multiple Vitamins Tab PO SCH ×2 (11:07→11:45)
[2018-03-17] MEDS: Saccharomyces Boulardi 250 mg Cap PO SCH ×2 (11:07→11:45)
--- NOTE | 2018-03-17 14:05 | CP.PCM.PN ---
Subjective - Date & Time of Evaluation Date of Evaluation: 03/17/18 Time of Evaluation: 08:20 - Subjective Subjective: PGY2 Resident - Medicine Progress Note Patient seen and examined at bedside. No acute distress. No overnight events. Patient with rising ammonia levels leading to hepatic encephalopathy. She has been refusing most meds including lactulose due to her medical status. Also not eating. Will start lactulose (ND) and PPN. Patient responds to sternal rub, but is extremely disoriented. Further ROS could not be obtained 2/2 medical condition. Objective - Vital Signs/Intake and Output Vital Signs (last 24 hours): Temp Pulse Resp BP Pulse Ox 98.3 F 84 20 118/57 L 98 03/17/18 07:00 03/17/18 07:00 03/17/18 07:00 03/17/18 07:00 03/17/18 07:00 Intake and Output: 03/17/18 03/17/18 06:59 18:59 Intake Total 250 Balance 250 - Medications Medications: Current Medications Albuterol/Ipratropium (Duoneb 3 Mg/0.5 Mg (3 Ml) Ud) 3 ml IH RQ6 [facility] Last Admin: 03/17/18 13:17 Dose: Not Given Enoxaparin Sodium (Lovenox) 30 mg SC DAILY [facility] Last Admin: 03/13/18 09:02 Dose: 30 mg Ferrous Sulfate (Feosol) 325 mg PO DAILY [facility] Last Admin: 03/17/18 11:00 Dose: Not Given Folic Acid (Folic Acid) 1 mg PO DAILY [facility] Last Admin: 03/17/18 11:45 Dose: Not Given Furosemide (Lasix) 40 mg PO DAILY [facility] Last Admin: 03/17/18 11:45 Dose: Not Given Ciprofloxacin (Cipro 400mg/200ml Dsw) 400 mg in 200 mls @ 133 mls/hr IVPB Q12H [facility] PRN Reason: Protocol Last Admin: 03/17/18 11:43 Dose: 133 mls/hr Insulin Detemir (Levemir) 20 unit SC HS [facility] Last Admin: 03/16/18 21:58 Dose: 20 unit Insulin Human Regular (Novolin R) 0 unit SC ACHS [facility] PRN Reason: Protocol Last Admin: 03/17/18 12:25 Dose: Not Given Lactulose (Enulose) 20 gm PO TID [facility] Last Admin: 03/17/18 11:45 Dose: Not Given Lactulose (Generlac) 200 gm ND Q6H [facility] Stop: 03/19/18 07:46 Multivitamins (Hexavitamin) 1 tab PO DAILY [facility] Last Admin: 03/17/18 11:45 Dose: Not Given Potassium Chloride (Klor-Con 10) 10 meq PO DAILY@0800 [facility] Last Admin: 03/17/18 09:00 Dose: 10 meq Propranolol HCl (Inderal) 10 mg PO Q12H [facility] Last Admin: 03/17/18 11:44 Dose: Not Given Rifaximin (Xifaxan) 550 mg PO BID [facility] PRN Reason: Protocol Last Admin: 03/17/18 11:09 Dose: 550 mg Saccharomyces Boulardii (Florastor) 250 mg PO DAILY [facility] Last Admin: 03/17/18 11:45 Dose: Not Given Tramadol HCl (Ultram) 50 mg PO Q6 [facility] PRN Reason: pain Last Admin: 03/14/18 03:22 Dose: 50 mg - Labs Labs: 03/17/18 06:58 03/15/18 06:29 PT 17.9 SECONDS (9.7-12.2) H 03/14/18 14:32 INR 1.6 03/14/18 14:32 APTT 35 SECONDS (21-34) H 03/14/18 14:32 - Additional Findings Additional findings: - Constitutional Appears: Non-toxic, No Acute Distress note: disoriented 2/2 hepatic encephalopathy + hyperammonemia - Head Exam Head Exam: ATRAUMATIC - ENT Exam ENT Exam: Mucous Membranes Moist - Respiratory Exam Respiratory Exam: Clear to Ausculation Bilateral. absent: Accessory Muscle Use , Rales, Rhonchi, Wheezes, Respiratory Distress - Cardiovascular Exam Cardiovascular Exam: REGULAR RHYTHM, +S1, +S2. absent: Gallop, Rubs, Murmur - GI/Abdominal Exam GI & Abdominal Exam: Soft, Normal Bowel Sounds. absent: Distended, Firm, Guarding, Rigid, Tenderness, Organomegaly - Extremities Exam Extremities Exam: absent: Pedal Edema, Tenderness - Neurological Exam Neurological Exam: Alert, Awake - Psychiatric Exam Psychiatric exam: Normal Affect, Normal Mood - Skin Skin Exam: Dry, Intact, Normal Color, Warm Assessment and Plan - Assessment and Plan (Free Text) Assessment: 72 year old female with past medical history of cirrhosis with protal HTN, pancytopenia due to cirrohsis and hypersplenism is admitted for panctopenia Encephalopathic 03/17: Patient refused Lactulose PO due to disorientation and encephalopathic state. Lactulose changed to ND, that way patient cannot refuse medication. Ammonia level today increased from 32 to 142 over 2 days. - CT of head - chronic changes Cirrhosis - Currently encephalopathic likely due to elevated ammonia - Continue lactulose PO TID and rifaximin 550 mg po BID - MELD score of 18 with poor prognosis - GI, Dr. Lazo is consulted Pancytopenia - WBC very low at 1.5. Hemeonc on the case. - ANC is 668 so no recommendation for neutropenic precautions - Dr. Maciel consulted - check ferritin levels, do not recommend neupogen or platelet transfusions unless patient is bleeding or febrile Hematuria - Discontinued you. Likely 2/2 to thrombocytopenia. - Heme/onc, Dr. Maciel consulted. Recommended transfusing 1 unit FFP and 1 unit platelets due to active bleeding - Urology consulted - help appreciated UTI 03/17: Continue cipro 400 IV Q12H - Urine culture positive for gram negative rods - Pt has penicillin allergy Hypokalemaia Replaced as needed monitor K/Mg level tomorrow Prophylaxis - lovenox 30 sc - held due to hematuria and thrombocytopenia - no indications for gi prophylaxis Case discussed with attending. All medical management as per Dr. Juana Coronado.
--- NOTE | 2018-03-17 15:45 | CP.PCM.PN ---
Subjective - Date & Time of Evaluation Date of Evaluation: 03/17/18 Time of Evaluation: 15:43 - Subjective Subjective: Encephalopathic On Lactulose and Xifaxan. No recorded BMs Objective - Vital Signs/Intake and Output Vital Signs (last 24 hours): Temp Pulse Resp BP Pulse Ox 98.3 F 84 20 118/57 L 98 03/17/18 07:00 03/17/18 07:00 03/17/18 07:00 03/17/18 07:00 03/17/18 07:00 Intake and Output: 03/17/18 03/17/18 06:59 18:59 Intake Total 250 Balance 250 - Medications Medications: Current Medications Albuterol/Ipratropium (Duoneb 3 Mg/0.5 Mg (3 Ml) Ud) 3 ml IH RQ6 [facility] Last Admin: 03/17/18 13:17 Dose: Not Given Enoxaparin Sodium (Lovenox) 30 mg SC DAILY [facility] Last Admin: 03/13/18 09:02 Dose: 30 mg Ferrous Sulfate (Feosol) 325 mg PO DAILY [facility] Last Admin: 03/17/18 11:00 Dose: Not Given Folic Acid (Folic Acid) 1 mg PO DAILY [facility] Last Admin: 03/17/18 11:45 Dose: Not Given Furosemide (Lasix) 40 mg PO DAILY [facility] Last Admin: 03/17/18 11:45 Dose: Not Given Ciprofloxacin (Cipro 400mg/200ml Dsw) 400 mg in 200 mls @ 133 mls/hr IVPB Q12H [facility] PRN Reason: Protocol Last Admin: 03/17/18 11:43 Dose: 133 mls/hr Multivitamins/Vitamin C 10 ml/ (Amino Acids) 1,010 mls @ 42 mls/hr IV .Q24H [facility] Stop: 03/18/18 17:59 Fat Emulsion Intravenous (Intralipid 20%) 250 mls @ 42 mls/hr IV QOD [facility] Stop: 03/24/18 10:01 Insulin Detemir (Levemir) 20 unit SC HS [facility] Last Admin: 03/16/18 21:58 Dose: 20 unit Insulin Human Regular (Novolin R) 0 unit SC ACHS [facility] PRN Reason: Protocol Last Admin: 03/17/18 12:25 Dose: Not Given Lactulose (Enulose) 20 gm PO TID [facility] Last Admin: 03/17/18 11:45 Dose: Not Given Lactulose (Generlac) 200 gm AR Q6H [facility] Stop: 03/19/18 09:01 Multivitamins (Hexavitamin) 1 tab PO DAILY [facility] Last Admin: 03/17/18 11:45 Dose: Not Given Potassium Chloride (Klor-Con 10) 10 meq PO DAILY@0800 [facility] Last Admin: 03/17/18 09:00 Dose: 10 meq Propranolol HCl (Inderal) 10 mg PO Q12H [facility] Last Admin: 03/17/18 11:44 Dose: Not Given Rifaximin (Xifaxan) 550 mg PO BID [facility] PRN Reason: Protocol Last Admin: 03/17/18 11:09 Dose: 550 mg Saccharomyces Boulardii (Florastor) 250 mg PO DAILY [facility] Last Admin: 03/17/18 11:45 Dose: Not Given Tramadol HCl (Ultram) 50 mg PO Q6 PRN PRN Reason: pain Last Admin: 03/14/18 03:22 Dose: 50 mg - Labs Labs: 03/17/18 06:58 03/15/18 06:29 PT 17.9 SECONDS (9.7-12.2) H 03/14/18 14:32 INR 1.6 03/14/18 14:32 APTT 35 SECONDS (21-34) H 03/14/18 14:32 - Constitutional Appears: Chronically Ill - Eye Exam Eye Exam: Scleral icterus - Respiratory Exam Respiratory Exam: NORMAL BREATHING PATTERN - Cardiovascular Exam Cardiovascular Exam: REGULAR RHYTHM - GI/Abdominal Exam GI & Abdominal Exam: Soft. absent: Tenderness - Neurological Exam Neurological Exam: Altered Assessment and Plan (1) Pancytopenia Assessment & Plan: chronic stable Status: Acute (2) Cirrhosis Assessment & Plan: encephalopathic despite Lactulose and Xifaxan End stage cirrhosis Status: Chronic
--- NOTE | 2018-03-17 15:58 | CP.PCM.PN ---
Subjective - Date & Time of Evaluation Date of Evaluation: 03/17/18 Time of Evaluation: 08:40 - Subjective Subjective: clinically same Objective - Vital Signs/Intake and Output Vital Signs (last 24 hours): Temp Pulse Resp BP Pulse Ox 98.3 F 84 20 118/57 L 98 03/17/18 07:00 03/17/18 07:00 03/17/18 07:00 03/17/18 07:00 03/17/18 07:00 Intake and Output: 03/17/18 03/17/18 06:59 18:59 Intake Total 250 Balance 250 - Medications Medications: Current Medications Albuterol/Ipratropium (Duoneb 3 Mg/0.5 Mg (3 Ml) Ud) 3 ml IH RQ6 [facility] Last Admin: 03/17/18 13:17 Dose: Not Given Enoxaparin Sodium (Lovenox) 30 mg SC DAILY [facility] Last Admin: 03/13/18 09:02 Dose: 30 mg Ferrous Sulfate (Feosol) 325 mg PO DAILY [facility] Last Admin: 03/17/18 11:00 Dose: Not Given Folic Acid (Folic Acid) 1 mg PO DAILY [facility] Last Admin: 03/17/18 11:45 Dose: Not Given Furosemide (Lasix) 40 mg PO DAILY [facility] Last Admin: 03/17/18 11:45 Dose: Not Given Ciprofloxacin (Cipro 400mg/200ml Dsw) 400 mg in 200 mls @ 133 mls/hr IVPB Q12H [facility] PRN Reason: Protocol Last Admin: 03/17/18 11:43 Dose: 133 mls/hr Multivitamins/Vitamin C 10 ml/ (Amino Acids) 1,010 mls @ 42 mls/hr IV .Q24H [facility] Stop: 03/18/18 17:59 Fat Emulsion Intravenous (Intralipid 20%) 250 mls @ 42 mls/hr IV QOD [facility] Stop: 03/24/18 10:01 Insulin Detemir (Levemir) 20 unit SC HS [facility] Last Admin: 03/16/18 21:58 Dose: 20 unit Insulin Human Regular (Novolin R) 0 unit SC ACHS [facility] PRN Reason: Protocol Last Admin: 03/17/18 12:25 Dose: Not Given Lactulose (Enulose) 20 gm PO TID [facility] Last Admin: 03/17/18 11:45 Dose: Not Given Lactulose (Generlac) 200 gm LA Q6H [facility] Stop: 03/19/18 09:01 Multivitamins (Hexavitamin) 1 tab PO DAILY [facility] Last Admin: 03/17/18 11:45 Dose: Not Given Potassium Chloride (Klor-Con 10) 10 meq PO DAILY@0800 [facility] Last Admin: 03/17/18 09:00 Dose: 10 meq Propranolol HCl (Inderal) 10 mg PO Q12H [facility] Last Admin: 03/17/18 11:44 Dose: Not Given Rifaximin (Xifaxan) 550 mg PO BID [facility] PRN Reason: Protocol Last Admin: 03/17/18 11:09 Dose: 550 mg Saccharomyces Boulardii (Florastor) 250 mg PO DAILY [facility] Last Admin: 03/17/18 11:45 Dose: Not Given Tramadol HCl (Ultram) 50 mg PO Q6 PRN PRN Reason: pain Last Admin: 03/14/18 03:22 Dose: 50 mg - Labs Labs: 03/17/18 06:58 03/15/18 06:29 PT 17.9 SECONDS (9.7-12.2) H 03/14/18 14:32 INR 1.6 03/14/18 14:32 APTT 35 SECONDS (21-34) H 03/14/18 14:32 - Constitutional Appears: Well - Head Exam Head Exam: ATRAUMATIC, NORMAL INSPECTION, NORMOCEPHALIC - Eye Exam Eye Exam: EOMI, Normal appearance, PERRL Pupil Exam: NORMAL ACCOMODATION, PERRL - ENT Exam ENT Exam: Mucous Membranes Moist, Normal Exam - Neck Exam Neck Exam: Full ROM, Normal Inspection. absent: Lymphadenopathy - Respiratory Exam Respiratory Exam: Decreased Breath Sounds - Cardiovascular Exam Cardiovascular Exam: REGULAR RHYTHM, +S1, +S2 - Rectal Exam Rectal Exam: Deferred
[2018-03-17] MEDS: Lactulose 10 gm/15 ml (Rectal Use) PR SCH ×2 (16:00→21:02)
[2018-03-17] MEDS ORDERED: PPN#1 IV SCH (18:00)
[2018-03-17] MEDS: Insulin Detemir 100 units/ml Vial (Levemir) SC SCH (21:55)
[2018-03-18] MEDS: Ciprofloxacin 400mg/200ml D5W 400 MG/200 ML BAG IVPB SCH ×2 (00:05→12:00)
--- NOTE | 2018-03-18 00:15 | PCM.URO ---
Urology Progress Note - General General: No Complaints - Subjective Abdominal Pain: No Flank Pain: No Voiding Well: Yes (incontinent) Hematuria: No Dsypnea: No Chest Pain: No Fever & Chills: No - Objective Lab Results Last 24 Hours: Laboratory Results - last 24 hr 03/17/18 03/17/18 03/17/18 06:43 06:58 06:58 WBC 1.5 L* RBC 2.59 L Hgb 8.9 L Hct 25.3 L MCV 97.9 MCH 34.3 H MCHC 35.0 RDW 16.1 H Plt Count 29 L* MPV 9.3 Neut % (Auto) 69.1 Lymph % (Auto) 24.0 [place] % (Auto) 4.9 Eos % (Auto) 1.8 Baso % (Auto) 0.2 Neut # (Auto) 1.0 L Lymph # (Auto) 0.4 L [place] # (Auto) 0.1 Eos # (Auto) 0.0 Baso # (Auto) 0.0 POC Glucose (mg/dL) 293 H Ammonia 142 H D 03/17/18 03/17/18 03/17/18 11:54 16:49 21:23 WBC RBC Hgb Hct MCV MCH MCHC RDW Plt Count MPV Neut % (Auto) Lymph % (Auto) [place] % (Auto) Eos % (Auto) Baso % (Auto) Neut # (Auto) Lymph # (Auto) [place] # (Auto) Eos # (Auto) Baso # (Auto) POC Glucose (mg/dL) 200 H 200 H 214 H Ammonia Intake & Output: Intake & Output 03/17/18 03/17/18 03/18/18 06:59 18:59 06:59 Intake Total 250 Balance 250 Intake: Intake, IV Amount 200 Right Upper arm 200 Oral 50 Vital Signs: Vital Signs - 24 hr 03/17/18 03/17/18 07:00 15:10 Temperature 98.3 F 97.4 F L Pulse Rate 84 83 Respiratory 20 20 Rate Blood Pressure 118/57 L 136/67 O2 Sat by Pulse 98 98 Oximetry - Physical Exam Abdominal Exam: Soft, Non-Tender, Non-Distended Back: No CVA Tenderness - Plan Intake & Output: Yes Additional Information: Imp: Improved re hematuria. Poss primary urologic diease and/or secondary to hematologic and hepatic disease. R/p: consider further evaluation re hematuira - Date & Time of Note Date: 03/17/18 Time: 11:30
[2018-03-18] MEDS: Albuterol-Ipratrop 3 mg / 0.5 (3 ml) UD IH SCH ×4 (01:11→19:42)
[2018-03-18] MEDS: Lactulose 10 gm/15 ml (Rectal Use) PR SCH ×4 (03:54→18:53)
[2018-03-18 07:20] LABS: BASO % 0.5 % (0.0-2.0); EOS % 1.8 % (0.0-4.0); HEMOGLOBIN 10.1 g/dL (11.0-16.0); LYMPH # 0.5 K/uL (1.0-4.3); LYMPH % 28.9 % (20.0-40.0); MEAN CELL VOLUME 98.7 fL (81.0-99.0); MEAN CORPUSCULAR HEMOGLOBIN 34.5 pg (27.0-31.0); MEAN CORPUSCULAR HGB CONC 34.9 g/dL (33.0-37.0); MEAN PLATELET VOLUME 8.8 fL (7.2-11.7); MONO # 0.1 K/uL (0.0-0.8); MONO % 7.7 % (0.0-10.0); NEUT # 1.1 K/uL (1.8-7.0); NEUT % 61.1 % (50.0-75.0); NRBC % 0.2 % (0.0-2.0); RBC 2.93 Mil/uL (3.80-5.20); RED CELL DISTRIBUTION WIDTH 16.2 % (11.5-14.5)
[2018-03-18 07:27] LABS: WHITE BLOOD COUNT 1.8 K/uL (4.8-10.8)
[2018-03-18 07:35] LABS: ALB/GLOB RATIO 0.6 (1.0-2.1); ALBUMIN 2.2 g/dL (3.5-5.0); ALT/SGPT 40 U/L (9-52); AST/SGOT 83 U/L (14-36); BLOOD UREA NITROGEN 12 mg/dL (7-17); GFR AFRICAN-AMERICAN > 60; GFR NON-AFRICAN AMERICAN > 60
--- NOTE | 2018-03-18 07:46 | CP.PCM.PN ---
<Darian Lemon - Last Filed: 03/18/18 15:44> Subjective - Date & Time of Evaluation Date of Evaluation: 03/18/18 Time of Evaluation: 08:20 - Subjective Subjective: PGY2 Resident - Medicine Progress Note Patient seen and examined at bedside. No acute distress. No overnight events. Patient is still disoriented, however her ammonia level has improved with WA lactulose. PPN infusion running. Patient now reacts and opens her eyes ( yesterday would only respond to sternal rub), however continues to be disoriented and non-conversant. Further ROS could not be obtained 2/2 medical condition. Objective - Vital Signs/Intake and Output Vital Signs (last 24 hours): Temp Pulse Resp BP Pulse Ox 98.0 F 79 20 131/57 L 98 03/18/18 07:00 03/18/18 07:00 03/18/18 07:00 03/18/18 07:00 03/18/18 07:00 Intake and Output: 03/18/18 03/18/18 06:59 18:59 Intake Total 452 Balance 452 - Medications Medications: Current Medications Albuterol/Ipratropium (Duoneb 3 Mg/0.5 Mg (3 Ml) Ud) 3 ml IH RQ6 [facility] Last Admin: 03/18/18 07:34 Dose: Not Given Enoxaparin Sodium (Lovenox) 30 mg SC DAILY [facility] Last Admin: 03/13/18 09:02 Dose: 30 mg Ferrous Sulfate (Feosol) 325 mg PO DAILY [facility] Last Admin: 03/17/18 11:00 Dose: Not Given Folic Acid (Folic Acid) 1 mg PO DAILY [facility] Last Admin: 03/17/18 11:45 Dose: Not Given Furosemide (Lasix) 40 mg PO DAILY [facility] Last Admin: 03/17/18 11:45 Dose: Not Given Ciprofloxacin (Cipro 400mg/200ml Dsw) 400 mg in 200 mls @ 133 mls/hr IVPB Q12H [facility] PRN Reason: Protocol Last Admin: 03/18/18 00:05 Dose: 133 mls/hr Multivitamins/Vitamin C 10 ml/ (Amino Acids) 1,010 mls @ 42 mls/hr IV .Q24H [facility] Stop: 03/18/18 17:59 Last Admin: 03/17/18 17:54 Dose: 42 mls/hr Fat Emulsion Intravenous (Intralipid 20%) 250 mls @ 42 mls/hr IV QOD [facility] Stop: 03/24/18 10:01 Insulin Detemir (Levemir) 20 unit SC HS [facility] Last Admin: 03/17/18 21:55 Dose: 20 unit Insulin Human Regular (Novolin R) 0 unit SC ACHS [facility] PRN Reason: Protocol Last Admin: 03/17/18 21:55 Dose: Not Given Lactulose (Enulose) 20 gm PO TID [facility] Last Admin: 03/17/18 11:45 Dose: Not Given Lactulose (Generlac) 200 gm [place] Q6H [facility] Stop: 03/19/18 09:01 Last Admin: 03/18/18 03:54 Dose: 200 gm Multivitamins (Hexavitamin) 1 tab PO DAILY [facility] Last Admin: 03/17/18 11:45 Dose: Not Given Potassium Chloride (Klor-Con 10) 10 meq PO DAILY@0800 [facility] Last Admin: 03/17/18 09:00 Dose: 10 meq Propranolol HCl (Inderal) 10 mg PO Q12H [facility] Last Admin: 03/18/18 00:20 Dose: Not Given Rifaximin (Xifaxan) 550 mg PO BID [facility] PRN Reason: Protocol Last Admin: 03/17/18 17:55 Dose: 550 mg Saccharomyces Boulardii (Florastor) 250 mg PO DAILY [facility] Last Admin: 03/17/18 11:45 Dose: Not Given Tramadol HCl (Ultram) 50 mg PO Q6 PRN PRN Reason: pain Last Admin: 03/14/18 03:22 Dose: 50 mg - Labs Labs: 03/18/18 07:12 03/18/18 07:12 PT 17.9 SECONDS (9.7-12.2) H 03/14/18 14:32 INR 1.6 03/14/18 14:32 APTT 35 SECONDS (21-34) H 03/14/18 14:32 - Additional Findings Additional findings: - Constitutional Appears: Non-toxic, No Acute Distress, Chronically ill note: disoriented 2/2 hepatic encephalopathy (mildly improved) - Head Exam Head Exam: ATRAUMATIC - ENT Exam ENT Exam: Mucous Membranes Moist - Respiratory Exam Respiratory Exam: Clear to Ausculation Bilateral. absent: Accessory Muscle Use , Rales, Rhonchi, Wheezes, Respiratory Distress - Cardiovascular Exam Cardiovascular Exam: REGULAR RHYTHM, +S1, +S2. absent: Gallop, Rubs, Murmur - GI/Abdominal Exam GI & Abdominal Exam: Soft, Normal Bowel Sounds. absent: Distended, Firm, Guarding, Rigid, Tenderness, Organomegaly - Extremities Exam Extremities Exam: absent: Pedal Edema, Tenderness - Neurological Exam Neurological Exam: Alert, Awake - Psychiatric Exam Psychiatric exam: Flat Affect, Depressed Mood (difficult to assess as patient is not conversant) - Skin Skin Exam: Dry, Intact, Normal Color, Warm Assessment and Plan - Assessment and Plan (Free Text) Assessment: 72 year old female with past medical history of cirrhosis with protal HTN, pancytopenia due to cirrohsis and hypersplenism is admitted for panctopenia Encephalopathic 03/18: ammonia improved from 142 to 35. Continue Lactulose PO until patient has 2- 3 BMs per day. If patient refuses or displays encephalopathy, utilize Lactulose [place]. GI onboard, f/u recs. 03/17: Patient refused Lactulose PO due to disorientation and encephalopathic state. Lactulose changed to [place], that way patient cannot refuse medication. Ammonia level today increased from 32 to 142 over 2 days. - CT of head - chronic changes Cirrhosis - Currently encephalopathic likely due to elevated ammonia - Continue lactulose PO TID and rifaximin 550 mg po BID - MELD score of 18 with poor prognosis - GI, Dr. Lazo is consulted Pancytopenia 03/18: mildly improved at WBC 1.8; platelets 32. Hemeonc on board, f/u recs. - WBC very low at 1.5. Hemeonc on the case. - ANC is 668 so no recommendation for neutropenic precautions - Dr. Maciel consulted - check ferritin levels, do not recommend neupogen or platelet transfusions unless patient is bleeding or febrile Hematuria - Discontinued you. Likely 2/2 to thrombocytopenia. - Heme/onc, Dr. Maciel consulted. Recommended transfusing 1 unit FFP and 1 unit platelets due to active bleeding - Urology consulted - help appreciated UTI 03/17-03/18: Continue cipro 400 IV Q12H (started 03/14) - Urine culture positive for gram negative rods - Pt has penicillin allergy Hypokalemaia Replaced as needed monitor K/Mg level tomorrow Prophylaxis - lovenox 30 sc - held due to hematuria and thrombocytopenia - no indications for gi prophylaxis Case discussed with attending. All medical management as per Dr. Juana Coronado. <Nancy Coronado - Last Filed: 03/18/18 23:21> Objective - Vital Signs/Intake and Output Vital Signs (last 24 hours): Temp Pulse Resp BP Pulse Ox 98.3 F 86 20 139/70 100 03/18/18 15:00 03/18/18 15:00 03/18/18 15:00 03/18/18 15:00 03/18/18 15:00 Intake and Output: 03/18/18 03/19/18 18:59 06:59 Intake Total 418 Output Total 3 Balance 415 - Medications Medications: Current Medications Albuterol/Ipratropium (Duoneb 3 Mg/0.5 Mg (3 Ml) Ud) 3 ml IH RQ6 [facility] Last Admin: 03/18/18 19:42 Dose: Not Given Enoxaparin Sodium (Lovenox) 30 mg SC DAILY [facility] Last Admin: 03/13/18 09:02 Dose: 30 mg Ferrous Sulfate (Feosol) 325 mg PO DAILY [facility] Last Admin: 03/18/18 10:12 Dose: 325 mg Folic Acid (Folic Acid) 1 mg PO DAILY [facility] Last Admin: 03/18/18 10:11 Dose: 1 mg Furosemide (Lasix) 40 mg PO DAILY [facility] Last Admin: 03/18/18 10:19 Dose: 40 mg Ciprofloxacin (Cipro 400mg/200ml Dsw) 400 mg in 200 mls @ 133 mls/hr IVPB Q12H [facility] PRN Reason: Protocol Last Admin: 03/18/18 12:00 Dose: 133 mls/hr Fat Emulsion Intravenous (Intralipid 20%) 250 mls @ 42 mls/hr IV QOD [facility] Stop: 03/24/18 10:01 Last Admin: 03/18/18 10:30 Dose: 42 mls/hr Multivitamins/Vitamin C 10 ml/ (Amino Acids) 1,010 mls @ 42 mls/hr IV .Q24H [facility] Stop: 03/19/18 17:59 Last Admin: 03/18/18 18:55 Dose: 42 mls/hr Insulin Detemir (Levemir) 20 unit SC HS [facility] Last Admin: 03/18/18 22:03 Dose: 20 unit Insulin Human Regular (Novolin R) 0 unit SC ACHS [facility] PRN Reason: Protocol Last Admin: 03/18/18 22:02 Dose: 2 unit Lactulose (Generlac) 200 gm [place] TID [facility] Stop: 03/19/18 14:01 Last Admin: 03/18/18 18:53 Dose: 200 gm Lactulose (Enulose) 20 gm PO TID [facility] Multivitamins (Hexavitamin) 1 tab PO DAILY [facility] Last Admin: 03/18/18 10:11 Dose: 1 tab Potassium Chloride (Klor-Con 10) 10 meq PO DAILY@0800 [facility] Last Admin: 03/18/18 08:39 Dose: 10 meq Propranolol HCl (Inderal) 10 mg PO Q12H [facility] Last Admin: 03/18/18 11:27 Dose: 10 mg Rifaximin (Xifaxan) 550 mg PO BID [facility] PRN Reason: Protocol Last Admin: 03/18/18 18:36 Dose: 550 mg Saccharomyces Boulardii (Florastor) 250 mg PO DAILY [facility] Last Admin: 03/18/18 10:18 Dose: 250 mg Tramadol HCl (Ultram) 50 mg PO Q6 [facility] PRN Reason: pain Last Admin: 03/14/18 03:22 Dose: 50 mg - Labs Labs: 03/18/18 07:12 03/18/18 07:12 PT 17.9 SECONDS (9.7-12.2) H 03/14/18 14:32 INR 1.6 03/14/18 14:32 APTT 35 SECONDS (21-34) H 03/14/18 14:32 - Constitutional Appears: Non-toxic - Head Exam Head Exam: NORMAL INSPECTION - Eye Exam Eye Exam: Normal appearance - ENT Exam ENT Exam: Normal Exam - Neck Exam Neck Exam: Full ROM - Respiratory Exam Respiratory Exam: Decreased Breath Sounds - Cardiovascular Exam Cardiovascular Exam: REGULAR RHYTHM, +S1, +S2 - GI/Abdominal Exam GI & Abdominal Exam: Diminished Bowel Sounds - Rectal Exam Rectal Exam: Deferred Attending/Attestation - Attestation I have personally seen and examined this patient.: Yes I have fully participated in the care of the patient.: Yes I have reviewed all pertinent clinical information, including history, physical exam and plan: Yes Notes (Text): 03/18/18 23:19 case seen and dGilesw staff and resident, concurred with finding and management..
--- NOTE | 2018-03-18 08:11 | CP.PCM.PN ---
Subjective - Date & Time of Evaluation Date of Evaluation: 03/18/18 Time of Evaluation: 08:00 - Subjective Subjective: f/u cirrhosis. Confused/ Poor po No report of RB, melena, fever, chills SZ, CP, SOB, hematuria Objective - Vital Signs/Intake and Output Vital Signs (last 24 hours): Temp Pulse Resp BP Pulse Ox 98.0 F 79 20 131/57 L 98 03/18/18 07:00 03/18/18 07:00 03/18/18 07:00 03/18/18 07:00 03/18/18 07:00 Intake and Output: 03/18/18 03/18/18 06:59 18:59 Intake Total 452 Balance 452 - Medications Medications: Current Medications Albuterol/Ipratropium (Duoneb 3 Mg/0.5 Mg (3 Ml) Ud) 3 ml IH RQ6 [facility] Last Admin: 03/18/18 07:34 Dose: Not Given Enoxaparin Sodium (Lovenox) 30 mg SC DAILY [facility] Last Admin: 03/13/18 09:02 Dose: 30 mg Ferrous Sulfate (Feosol) 325 mg PO DAILY [facility] Last Admin: 03/17/18 11:00 Dose: Not Given Folic Acid (Folic Acid) 1 mg PO DAILY [facility] Last Admin: 03/17/18 11:45 Dose: Not Given Furosemide (Lasix) 40 mg PO DAILY [facility] Last Admin: 03/17/18 11:45 Dose: Not Given Ciprofloxacin (Cipro 400mg/200ml Dsw) 400 mg in 200 mls @ 133 mls/hr IVPB Q12H [facility] PRN Reason: Protocol Last Admin: 03/18/18 00:05 Dose: 133 mls/hr Multivitamins/Vitamin C 10 ml/ (Amino Acids) 1,010 mls @ 42 mls/hr IV .Q24H [facility] Stop: 03/18/18 17:59 Last Admin: 03/17/18 17:54 Dose: 42 mls/hr Fat Emulsion Intravenous (Intralipid 20%) 250 mls @ 42 mls/hr IV QOD [facility] Stop: 03/24/18 10:01 Insulin Detemir (Levemir) 20 unit SC HS [facility] Last Admin: 03/17/18 21:55 Dose: 20 unit Insulin Human Regular (Novolin R) 0 unit SC ACHS [facility] PRN Reason: Protocol Last Admin: 03/17/18 21:55 Dose: Not Given Lactulose (Enulose) 20 gm PO TID [facility] Last Admin: 03/17/18 11:45 Dose: Not Given Lactulose (Generlac) 200 gm SC Q6H [facility] Stop: 03/19/18 09:01 Last Admin: 03/18/18 03:54 Dose: 200 gm Multivitamins (Hexavitamin) 1 tab PO DAILY [facility] Last Admin: 03/17/18 11:45 Dose: Not Given Potassium Chloride (Klor-Con 10) 10 meq PO DAILY@0800 [facility] Last Admin: 03/17/18 09:00 Dose: 10 meq Propranolol HCl (Inderal) 10 mg PO Q12H [facility] Last Admin: 03/18/18 00:20 Dose: Not Given Rifaximin (Xifaxan) 550 mg PO BID [facility] PRN Reason: Protocol Last Admin: 03/17/18 17:55 Dose: 550 mg Saccharomyces Boulardii (Florastor) 250 mg PO DAILY [facility] Last Admin: 03/17/18 11:45 Dose: Not Given Tramadol HCl (Ultram) 50 mg PO Q6 [facility] PRN Reason: pain Last Admin: 03/14/18 03:22 Dose: 50 mg - Labs Labs: 03/18/18 07:12 03/18/18 07:12 PT 17.9 SECONDS (9.7-12.2) H 03/14/18 14:32 INR 1.6 03/14/18 14:32 APTT 35 SECONDS (21-34) H 03/14/18 14:32 - Constitutional Appears: Non-toxic - Respiratory Exam Respiratory Exam: Clear to Ausculation Bilateral - Cardiovascular Exam Cardiovascular Exam: REGULAR RHYTHM - GI/Abdominal Exam GI & Abdominal Exam: Soft, Normal Bowel Sounds. absent: Tenderness - Extremities Exam Extremities Exam: absent: Calf Tenderness - Neurological Exam Additional comments: confused Assessment and Plan (1) Neutropenia Status: Acute (2) Anemia Status: Acute (3) Cirrhosis Status: Chronic (4) HCV (hepatitis C virus) Status: Acute (5) Hepatic encephalopathy Assessment & Plan: NH3 better. But still confused. Poor p.o. Advanced cirrhosis. Continue lactulose, xifaxan. Status: Acute
[2018-03-18] MEDS: (Novolin R) Insulin Human Regular 100 units/ml vial SC SCH ×4 (08:39→22:02)
[2018-03-18] MEDS: Potassium Chloride 10 mEq ER Tab PO SCH (08:39)
[2018-03-18] MEDS: Multiple Vitamins Tab PO SCH (10:11)
[2018-03-18] MEDS: Saccharomyces Boulardi 250 mg Cap PO SCH (10:18)
[2018-03-18] MEDS: Fat Emulsion 20% IV 250 ML IV SCH (10:30)
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
[2018-03-18] MEDS ORDERED: PPN#2 IV SCH (18:00)
[2018-03-18] MEDS: Insulin Detemir 100 units/ml Vial (Levemir) SC SCH (22:03)
--- NOTE | 2018-03-18 23:11 | PCM.URO ---
Urology Progress Note - General General: No Complaints, Tolerating Diet - Subjective Abdominal Pain: No Flank Pain: No Voiding Well: No (incontinent) Hematuria: No Chest Pain: No Fever & Chills: No - Objective Lab Results Last 24 Hours: Laboratory Results - last 24 hr 03/18/18 03/18/18 03/18/18 06:19 07:12 07:12 WBC 1.8 L* RBC 2.93 L Hgb 10.1 L Hct 29.0 L MCV 98.7 MCH 34.5 H MCHC 34.9 RDW 16.2 H Plt Count 32 L MPV 8.8 Neut % (Auto) 61.1 Lymph % (Auto) 28.9 [place] % (Auto) 7.7 Eos % (Auto) 1.8 Baso % (Auto) 0.5 Neut # (Auto) 1.1 L Lymph # (Auto) 0.5 L [place] # (Auto) 0.1 Eos # (Auto) 0.0 Baso # (Auto) 0.0 Sodium 141 Potassium 4.2 Chloride 104 Carbon Dioxide 32 H Anion Gap 9 L BUN 12 Creatinine 0.5 L Est GFR ( Amer) > 60 Est GFR (Non-Af Amer) > 60 POC Glucose (mg/dL) 240 H Random Glucose 227 H Calcium 9.0 Phosphorus 3.8 Magnesium 1.7 Total Bilirubin 4.6 H AST 83 H ALT 40 Alkaline Phosphatase 131 H Ammonia Total Protein 5.8 L Albumin 2.2 L Globulin 3.6 Albumin/Globulin Ratio 0.6 L 03/18/18 03/18/18 03/18/18 07:12 11:57 16:31 WBC RBC Hgb Hct MCV MCH MCHC RDW Plt Count MPV Neut % (Auto) Lymph % (Auto) [place] % (Auto) Eos % (Auto) Baso % (Auto) Neut # (Auto) Lymph # (Auto) [place] # (Auto) Eos # (Auto) Baso # (Auto) Sodium Potassium Chloride Carbon Dioxide Anion Gap BUN Creatinine Est GFR ( Amer) Est GFR (Non-Af Amer) POC Glucose (mg/dL) 222 H 214 H Random Glucose Calcium Phosphorus Magnesium Total Bilirubin AST ALT Alkaline Phosphatase Ammonia 35 H D Total Protein Albumin Globulin Albumin/Globulin Ratio 03/18/18 21:04 WBC RBC Hgb Hct MCV MCH MCHC RDW Plt Count MPV Neut % (Auto) Lymph % (Auto) [place] % (Auto) Eos % (Auto) Baso % (Auto) Neut # (Auto) Lymph # (Auto) [place] # (Auto) Eos # (Auto) Baso # (Auto) Sodium Potassium Chloride Carbon Dioxide Anion Gap BUN Creatinine Est GFR ( Amer) Est GFR (Non-Af Amer) POC Glucose (mg/dL) 312 H Random Glucose Calcium Phosphorus Magnesium Total Bilirubin AST ALT Alkaline Phosphatase Ammonia Total Protein Albumin Globulin Albumin/Globulin Ratio Intake & Output: Intake & Output 03/18/18 03/18/18 03/19/18 06:59 18:59 06:59 Intake Total 452 418 Output Total 3 Balance 452 415 Intake: Intake, IV Amount 200 Right Upper arm 200 TPN/PPN 252 168 Lipid 250 Output: Urine/Stool Mix 3 Other: # Bowel Movements 1 Vital Signs: Vital Signs - 24 hr 03/17/18 03/18/18 03/18/18 23:30 07:00 10:19 Temperature 97.8 F 98.0 F Pulse Rate 71 79 Respiratory 20 20 Rate Blood Pressure 116/70 131/57 L 133/58 L O2 Sat by Pulse 97 98 Oximetry 03/18/18 15:00 Temperature 98.3 F Pulse Rate 86 Respiratory 20 Rate Blood Pressure 139/70 O2 Sat by Pulse 100 Oximetry - Physical Exam Abdominal Exam: Soft, Non-Tender, Non-Distended Back: No CVA Tenderness - Plan Additional Information: Imp: improved re hematuria. Rec/P: possible further urologic w/u to follow, as per medical staff, - Date & Time of Note Date: 03/18/18 Time: 10:20
[2018-03-19] MEDS: Ciprofloxacin 400mg/200ml D5W 400 MG/200 ML BAG IVPB SCH ×2 (00:33→12:04)
[2018-03-19] MEDS: Albuterol-Ipratrop 3 mg / 0.5 (3 ml) UD IH SCH ×4 (01:16→19:44)
[2018-03-19 07:20] LABS: BASO % 0.4 % (0.0-2.0); EOS % 2.1 % (0.0-4.0); HEMOGLOBIN 9.5 g/dL (11.0-16.0); LYMPH # 0.3 K/uL (1.0-4.3); LYMPH % 21.2 % (20.0-40.0); MEAN CELL VOLUME 98.6 fL (81.0-99.0); MEAN CORPUSCULAR HEMOGLOBIN 34.9 pg (27.0-31.0); MEAN CORPUSCULAR HGB CONC 35.4 g/dL (33.0-37.0); MEAN PLATELET VOLUME 9.4 fL (7.2-11.7); MONO # 0.1 K/uL (0.0-0.8); MONO % 6.3 % (0.0-10.0); NEUT # 1.1 K/uL (1.8-7.0); RBC 2.73 Mil/uL (3.80-5.20); RED CELL DISTRIBUTION WIDTH 16.2 % (11.5-14.5)
[2018-03-19 07:26] LABS: WHITE BLOOD COUNT 1.6 K/uL (4.8-10.8)
[2018-03-19 07:47] LABS: ALB/GLOB RATIO 0.6 (1.0-2.1); ALBUMIN 2.2 g/dL (3.5-5.0); ALT/SGPT 46 U/L (9-52); AST/SGOT 75 U/L (14-36); BLOOD UREA NITROGEN 17 mg/dL (7-17); CALCIUM 9.3 mg/dl (8.6-10.4); GFR AFRICAN-AMERICAN > 60; GFR NON-AFRICAN AMERICAN > 60
[2018-03-19] MEDS: (Novolin R) Insulin Human Regular 100 units/ml vial SC SCH ×4 (08:24→21:55)
[2018-03-19] MEDS: Potassium Chloride 10 mEq ER Tab PO SCH (08:24)
[2018-03-19] MEDS: Multiple Vitamins Tab PO SCH (09:29)
[2018-03-19] MEDS: Saccharomyces Boulardi 250 mg Cap PO SCH (09:29)
--- NOTE | 2018-03-19 10:26 | CP.PCM.PN ---
Subjective - Date & Time of Evaluation Date of Evaluation: 03/19/18 Time of Evaluation: 07:15 - Subjective Subjective: PGY2 Resident - Medicine Progress Note Patient seen and examined at bedside. No acute distress. No overnight events. Today is the first day in 4+ days that the patient is alert and speaking in full sentences. Her ammonia level has been 35-42 over the last 2 days. PPN infusion is running. She is AAOx1 (knows who she is). She denies any pain, reports mild discomfort in her LE's. Will get PT/OT onboard. 12-point review of systems is otherwise negative without any additional acute complaints. Objective - Vital Signs/Intake and Output Vital Signs (last 24 hours): Temp Pulse Resp BP Pulse Ox 98.1 F 85 18 121/66 98 03/19/18 07:00 03/19/18 07:00 03/19/18 07:00 03/19/18 09:29 03/19/18 07:00 Intake and Output: 03/19/18 03/19/18 06:59 18:59 Intake Total 920 Output Total 3 Balance 917 - Medications Medications: Current Medications Albuterol/Ipratropium (Duoneb 3 Mg/0.5 Mg (3 Ml) Ud) 3 ml IH RQ6 [facility] Last Admin: 03/19/18 07:41 Dose: Not Given Enoxaparin Sodium (Lovenox) 30 mg SC DAILY [facility] Last Admin: 03/13/18 09:02 Dose: 30 mg Ferrous Sulfate (Feosol) 325 mg PO DAILY [facility] Last Admin: 03/19/18 09:29 Dose: 325 mg Folic Acid (Folic Acid) 1 mg PO DAILY [facility] Last Admin: 03/19/18 09:29 Dose: 1 mg Furosemide (Lasix) 40 mg PO DAILY [facility] Last Admin: 03/19/18 09:29 Dose: 40 mg Ciprofloxacin (Cipro 400mg/200ml Dsw) 400 mg in 200 mls @ 133 mls/hr IVPB Q12H [facility] PRN Reason: Protocol Last Admin: 03/19/18 00:33 Dose: 133 mls/hr Fat Emulsion Intravenous (Intralipid 20%) 250 mls @ 42 mls/hr IV QOD [facility] Stop: 03/24/18 10:01 Last Admin: 03/18/18 10:30 Dose: 42 mls/hr Multivitamins/Vitamin C 10 ml/ (Amino Acids) 1,010 mls @ 42 mls/hr IV .Q24H [facility] Stop: 03/19/18 17:59 Last Admin: 03/18/18 18:55 Dose: 42 mls/hr Insulin Detemir (Levemir) 20 unit SC HS [facility] Last Admin: 03/18/18 22:03 Dose: 20 unit Insulin Human Regular (Novolin R) 0 unit SC ACHS [facility] PRN Reason: Protocol Last Admin: 03/19/18 08:24 Dose: 3 unit Lactulose (Generlac) 200 gm NC TID [facility] Stop: 03/19/18 14:01 Last Admin: 03/18/18 18:53 Dose: 200 gm Lactulose (Enulose) 20 gm PO TID [facility] Last Admin: 03/19/18 09:29 Dose: 20 gm Multivitamins (Hexavitamin) 1 tab PO DAILY [facility] Last Admin: 03/19/18 09:29 Dose: 1 tab Potassium Chloride (Klor-Con 10) 10 meq PO DAILY@0800 [facility] Last Admin: 03/19/18 08:24 Dose: 10 meq Propranolol HCl (Inderal) 10 mg PO Q12H [facility] Last Admin: 03/19/18 00:52 Dose: 10 mg Rifaximin (Xifaxan) 550 mg PO BID [facility] PRN Reason: Protocol Last Admin: 03/19/18 09:29 Dose: 550 mg Saccharomyces Boulardii (Florastor) 250 mg PO DAILY [facility] Last Admin: 03/19/18 09:29 Dose: 250 mg Tramadol HCl (Ultram) 50 mg PO Q6 PRN PRN Reason: pain Last Admin: 03/14/18 03:22 Dose: 50 mg - Labs Labs: 03/19/18 07:11 03/19/18 07:11 PT 17.9 SECONDS (9.7-12.2) H 03/14/18 14:32 INR 1.6 03/14/18 14:32 APTT 35 SECONDS (21-34) H 03/14/18 14:32 - Additional Findings Additional findings: - Constitutional Appears: Non-toxic, No Acute Distress, Chronically ill note: alert today, talkative, smiles - Head Exam Head Exam: ATRAUMATIC - ENT Exam ENT Exam: Mucous Membranes Moist - Respiratory Exam Respiratory Exam: Clear to Ausculation Bilateral. absent: Accessory Muscle Use , Rales, Rhonchi, Wheezes, Respiratory Distress - Cardiovascular Exam Cardiovascular Exam: REGULAR RHYTHM, +S1, +S2. absent: Gallop, Rubs, Murmur - GI/Abdominal Exam GI & Abdominal Exam: Soft, Normal Bowel Sounds. absent: Distended, Firm, Guarding, Rigid, Tenderness, Organomegaly - Extremities Exam Extremities Exam: absent: Pedal Edema, Tenderness - Neurological Exam Neurological Exam: Alert, Awake (AAOx1, only oriented to self) - Psychiatric Exam Psychiatric exam: Normal Affect, Depressed mood. - Skin Skin Exam: Dry, Intact, Normal Color, Warm Assessment and Plan - Assessment and Plan (Free Text) Assessment: 72 year old female with past medical history of cirrhosis with protal HTN, pancytopenia due to cirrohsis and hypersplenism is admitted for panctopenia Encephalopathic 03/19: Ammonia 42 today; patient speaking in full sentences, smiling. If ammonia continues to rise, adjust lactulose regimen. 03/18: ammonia improved from 142 to 35. Continue Lactulose PO until patient has 2- 3 BMs per day. If patient refuses or displays encephalopathy, utilize Lactulose NC. GI onboard, f/u recs. 03/17: Patient refused Lactulose PO due to disorientation and encephalopathic state. Lactulose changed to NC, that way patient cannot refuse medication. Ammonia level today increased from 32 to 142 over 2 days. - CT of head - chronic changes Cirrhosis - Currently encephalopathic likely due to elevated ammonia - Continue lactulose PO TID and rifaximin 550 mg po BID - MELD score of 18 with poor prognosis - GI, Dr. Lazo is consulted Pancytopenia 03/19: WBC 1.6 / plateletes 28 -f/u ferritin, TIBC, Fe, and %Sat 03/18: mildly improved at WBC 1.8; platelets 32. Hemeonc on board, f/u recs. - WBC very low at 1.5. Hemeonc on the case. - ANC is 668 so no recommendation for neutropenic precautions - Dr. Maciel consulted - check ferritin levels, do not recommend neupogen or platelet transfusions unless patient is bleeding or febrile Hematuria - Discontinued you. Likely 2/2 to thrombocytopenia. - Heme/onc, Dr. Palathingal consulted. Recommended transfusing 1 unit FFP and 1 unit platelets due to active bleeding - Urology consulted - help appreciated UTI 03/17-03/18: Continue cipro 400 IV Q12H (started 03/14) - Urine culture positive for gram negative rods - Pt has penicillin allergy Electrolyte / Protein Imbalance 03/19: hypoalbuminemia - albumin 12.5Gm 25%/50mL x1 Hypokalemia- Replaced as needed Prophylaxis - lovenox 30 sc - held due to hematuria and thrombocytopenia - no indications for gi prophylaxis - PT / OT on board Case discussed with attending. All medical management as per Dr. Juana Coronado.
[2018-03-19] MEDS: Lactulose 10 gm/15 ml (Rectal Use) PR SCH ×2 (10:33→14:48)
--- NOTE | 2018-03-19 13:21 | CP.PCM.PN ---
Subjective - Date & Time of Evaluation Date of Evaluation: 03/19/18 Time of Evaluation: 13:20 - Subjective Subjective: Encephalopathic but more alert today. Conversant. Eating with assistance Objective - Vital Signs/Intake and Output Vital Signs (last 24 hours): Temp Pulse Resp BP Pulse Ox 98.1 F 85 18 121/66 98 03/19/18 07:00 03/19/18 07:00 03/19/18 07:00 03/19/18 09:29 03/19/18 07:00 Intake and Output: 03/19/18 03/19/18 06:59 18:59 Intake Total 920 Output Total 3 Balance 917 - Medications Medications: Current Medications Albuterol/Ipratropium (Duoneb 3 Mg/0.5 Mg (3 Ml) Ud) 3 ml IH RQ6 [facility] Last Admin: 03/19/18 07:41 Dose: Not Given Enoxaparin Sodium (Lovenox) 30 mg SC DAILY [facility] Last Admin: 03/13/18 09:02 Dose: 30 mg Ferrous Sulfate (Feosol) 325 mg PO DAILY [facility] Last Admin: 03/19/18 09:29 Dose: 325 mg Folic Acid (Folic Acid) 1 mg PO DAILY [facility] Last Admin: 03/19/18 09:29 Dose: 1 mg Furosemide (Lasix) 40 mg PO DAILY [facility] Last Admin: 03/19/18 09:29 Dose: 40 mg Ciprofloxacin (Cipro 400mg/200ml Dsw) 400 mg in 200 mls @ 133 mls/hr IVPB Q12H [facility] PRN Reason: Protocol Last Admin: 03/19/18 12:04 Dose: 133 mls/hr Fat Emulsion Intravenous (Intralipid 20%) 250 mls @ 42 mls/hr IV QOD [facility] Stop: 03/24/18 10:01 Last Admin: 03/18/18 10:30 Dose: 42 mls/hr Multivitamins/Vitamin C 10 ml/ (Amino Acids) 1,010 mls @ 42 mls/hr IV .Q24H [facility] Stop: 03/19/18 17:59 Last Admin: 03/18/18 18:55 Dose: 42 mls/hr Multivitamins/Vitamin C 10 ml/ (Amino Acids) 1,010 mls @ 42 mls/hr IV .Q24H [facility] Stop: 03/20/18 17:59 Insulin Detemir (Levemir) 20 unit SC HS [facility] Last Admin: 03/18/18 22:03 Dose: 20 unit Insulin Human Regular (Novolin R) 0 unit SC ACHS [facility] PRN Reason: Protocol Last Admin: 03/19/18 12:05 Dose: 4 unit Lactulose (Generlac) 200 gm ME TID [facility] Stop: 03/19/18 14:01 Last Admin: 03/19/18 10:33 Dose: Not Given Lactulose (Enulose) 20 gm PO TID [facility] Last Admin: 03/19/18 13:13 Dose: 20 gm Multivitamins (Hexavitamin) 1 tab PO DAILY [facility] Last Admin: 03/19/18 09:29 Dose: 1 tab Potassium Chloride (Klor-Con 10) 10 meq PO DAILY@0800 [facility] Last Admin: 03/19/18 08:24 Dose: 10 meq Propranolol HCl (Inderal) 10 mg PO Q12H [facility] Last Admin: 03/19/18 12:05 Dose: 10 mg Rifaximin (Xifaxan) 550 mg PO BID [facility] PRN Reason: Protocol Last Admin: 03/19/18 09:29 Dose: 550 mg Saccharomyces Boulardii (Florastor) 250 mg PO DAILY [facility] Last Admin: 03/19/18 09:29 Dose: 250 mg Tramadol HCl (Ultram) 50 mg PO Q6 PRN PRN Reason: pain Last Admin: 03/14/18 03:22 Dose: 50 mg - Labs Labs: 03/19/18 07:11 03/19/18 07:11 PT 17.9 SECONDS (9.7-12.2) H 03/14/18 14:32 INR 1.6 03/14/18 14:32 APTT 35 SECONDS (21-34) H 03/14/18 14:32 - Constitutional Appears: Chronically Ill - Eye Exam Eye Exam: Scleral icterus - Respiratory Exam Respiratory Exam: Clear to Ausculation Bilateral - Cardiovascular Exam Cardiovascular Exam: REGULAR RHYTHM - GI/Abdominal Exam GI & Abdominal Exam: Soft. absent: Tenderness, Mass, Organomegaly Assessment and Plan (1) Pancytopenia Assessment & Plan: stable Status: Acute (2) Cirrhosis Assessment & Plan: portal hypertension, and encephalopathy Continue Lactulose and Rifaximin Status: Chronic
[2018-03-19] MEDS ORDERED: Albumin Human 25% (12.5 gm/50 ml) IV ONE (14:20)
[2018-03-19] MEDS ORDERED: PPN#3 IV SCH (18:00)
[2018-03-19] MEDS: Insulin Detemir 100 units/ml Vial (Levemir) SC SCH (21:56)
[2018-03-20] MEDS: Ciprofloxacin 400mg/200ml D5W 400 MG/200 ML BAG IVPB SCH ×2 (00:55→11:40)
[2018-03-20] MEDS: Albuterol-Ipratrop 3 mg / 0.5 (3 ml) UD IH SCH ×4 (01:33→20:11)
[2018-03-20 06:43] LABS: BASO % 0.7 % (0.0-2.0); EOS % 1.4 % (0.0-4.0); HEMOGLOBIN 9.1 g/dL (11.0-16.0); LYMPH # 0.3 K/uL (1.0-4.3); LYMPH % 25.9 % (20.0-40.0); MEAN CELL VOLUME 97.7 fL (81.0-99.0); MEAN CORPUSCULAR HEMOGLOBIN 34.7 pg (27.0-31.0); MEAN CORPUSCULAR HGB CONC 35.6 g/dL (33.0-37.0); MEAN PLATELET VOLUME 9.5 fL (7.2-11.7); MONO # 0.1 K/uL (0.0-0.8); MONO % 6.9 % (0.0-10.0); NEUT # 0.8 K/uL (1.8-7.0); NEUT % 65.1 % (50.0-75.0); NRBC % 0.1 % (0.0-2.0); RBC 2.62 Mil/uL (3.80-5.20); RED CELL DISTRIBUTION WIDTH 15.8 % (11.5-14.5)
[2018-03-20 07:06] LABS: IRON 116 ug/dL (37-170)
[2018-03-20 07:08] LABS: WHITE BLOOD COUNT 1.3 K/uL (4.8-10.8)
[2018-03-20 07:16] LABS: % IRON SATURATION 61 (20-55); TOTAL IRON BINDING CAPACITY 189 ug/dL (250-450)
[2018-03-20] MEDS: (Novolin R) Insulin Human Regular 100 units/ml vial SC SCH ×4 (07:47→21:32)
[2018-03-20] MEDS: Potassium Chloride 10 mEq ER Tab PO SCH (07:48)
[2018-03-20] MEDS: Saccharomyces Boulardi 250 mg Cap PO SCH (10:04)
[2018-03-20] MEDS: Multiple Vitamins Tab PO SCH (10:04)
[2018-03-20] MEDS ORDERED: PPN#4 IV SCH ×2 (10:30→18:00)
[2018-03-20 11:17] LABS: ALB/GLOB RATIO 0.7 (1.0-2.1); ALBUMIN 2.3 g/dL (3.5-5.0); ALT/SGPT 36 U/L (9-52); AST/SGOT 72 U/L (14-36); BLOOD UREA NITROGEN 14 mg/dL (7-17); CALCIUM 8.7 mg/dl (8.6-10.4); GFR AFRICAN-AMERICAN > 60; GFR NON-AFRICAN AMERICAN > 60
[2018-03-20] MEDS: Fat Emulsion 20% IV 250 ML IV SCH (12:00)
--- NOTE | 2018-03-20 12:03 | CP.PCM.PN ---
Subjective - Date & Time of Evaluation Date of Evaluation: 03/20/18 Time of Evaluation: 11:45 - Subjective Subjective: f/u cirrhosis Awake. Denies RB, melena, abd pain, fever, CP, SOB, GARCIA, cough Objective - Vital Signs/Intake and Output Vital Signs (last 24 hours): Temp Pulse Resp BP Pulse Ox 98.2 F 80 18 113/66 98 03/20/18 08:55 03/20/18 08:55 03/20/18 08:55 03/20/18 10:05 03/20/18 08:55 Intake and Output: 03/20/18 03/20/18 06:59 18:59 Intake Total 536 Balance 536 - Medications Medications: Current Medications Albuterol/Ipratropium (Duoneb 3 Mg/0.5 Mg (3 Ml) Ud) 3 ml IH RQ6 [facility] Last Admin: 03/20/18 07:34 Dose: Not Given Enoxaparin Sodium (Lovenox) 30 mg SC DAILY [facility] Last Admin: 03/13/18 09:02 Dose: 30 mg Ferrous Sulfate (Feosol) 325 mg PO DAILY [facility] Last Admin: 03/20/18 10:04 Dose: 325 mg Folic Acid (Folic Acid) 1 mg PO DAILY [facility] Last Admin: 03/20/18 10:04 Dose: 1 mg Furosemide (Lasix) 40 mg PO DAILY [facility] Last Admin: 03/20/18 10:05 Dose: 40 mg Ciprofloxacin (Cipro 400mg/200ml Dsw) 400 mg in 200 mls @ 133 mls/hr IVPB Q12H [facility] PRN Reason: Protocol Last Admin: 03/20/18 11:40 Dose: 133 mls/hr Fat Emulsion Intravenous (Intralipid 20%) 250 mls @ 42 mls/hr IV QOD [facility] Stop: 03/24/18 10:01 Last Admin: 03/18/18 10:30 Dose: 42 mls/hr Multivitamins/Vitamin C 10 ml/ (Amino Acids) 1,010 mls @ 42 mls/hr IV .Q24H [facility] Stop: 03/20/18 17:59 Last Admin: 03/19/18 18:07 Dose: 42 mls/hr Multivitamins/Vitamin C 10 ml/ (Amino Acids) 1,010 mls @ 42 mls/hr IV .Q24H [facility] Stop: 03/21/18 17:59 Insulin Detemir (Levemir) 20 unit SC HS [facility] Last Admin: 03/19/18 21:56 Dose: 20 unit Insulin Human Regular (Novolin R) 0 unit SC ACHS [facility] PRN Reason: Protocol Last Admin: 03/20/18 07:47 Dose: 6 unit Lactulose (Enulose) 20 gm PO TID [facility] Last Admin: 03/20/18 10:05 Dose: 20 gm Multivitamins (Hexavitamin) 1 tab PO DAILY [facility] Last Admin: 03/20/18 10:04 Dose: 1 tab Potassium Chloride (Klor-Con 10) 10 meq PO DAILY@0800 [facility] Last Admin: 03/20/18 07:48 Dose: 10 meq Propranolol HCl (Inderal) 10 mg PO Q12H [facility] Last Admin: 03/20/18 11:40 Dose: 10 mg Rifaximin (Xifaxan) 550 mg PO BID [facility] PRN Reason: Protocol Last Admin: 03/20/18 10:04 Dose: 550 mg Saccharomyces Boulardii (Florastor) 250 mg PO DAILY [facility] Last Admin: 03/20/18 10:04 Dose: 250 mg Tramadol HCl (Ultram) 50 mg PO Q6 PRN PRN Reason: pain Last Admin: 03/14/18 03:22 Dose: 50 mg - Labs Labs: 03/20/18 06:34 03/20/18 06:34 PT 17.9 SECONDS (9.7-12.2) H 03/14/18 14:32 INR 1.6 03/14/18 14:32 APTT 35 SECONDS (21-34) H 03/14/18 14:32 - Constitutional Appears: Non-toxic - Neck Exam Neck Exam: absent: Tenderness - Respiratory Exam Respiratory Exam: Clear to Ausculation Bilateral - Cardiovascular Exam Cardiovascular Exam: RRR - GI/Abdominal Exam GI & Abdominal Exam: Soft, Normal Bowel Sounds. absent: Tenderness - Neurological Exam Neurological Exam: Alert, Awake. absent: Oriented x3 Assessment and Plan (1) Neutropenia Status: Acute (2) Anemia Status: Acute (3) Cirrhosis Assessment & Plan: Advanced Status: Chronic (4) HCV (hepatitis C virus) Status: Acute (5) Hepatic encephalopathy Assessment & Plan: NH3 better. on xifaxan, lactulose Status: Acute
--- NOTE | 2018-03-20 14:02 | CP.PCM.PN ---
Subjective - Date & Time of Evaluation Date of Evaluation: 03/20/18 Time of Evaluation: 14:00 - Subjective Subjective: Progress note. Attending: Dr. Raj Coronado. Pt seen and examined at bedside. No acute distress. No events overnight. Patient does not feel "well." No fevers, chills, vomiting, diarrhea. Objective - Vital Signs/Intake and Output Vital Signs (last 24 hours): Temp Pulse Resp BP Pulse Ox 98.2 F 80 18 113/66 98 03/20/18 08:55 03/20/18 08:55 03/20/18 08:55 03/20/18 10:05 03/20/18 08:55 Intake and Output: 03/20/18 03/20/18 06:59 18:59 Intake Total 536 Balance 536 - Medications Medications: Current Medications Albuterol/Ipratropium (Duoneb 3 Mg/0.5 Mg (3 Ml) Ud) 3 ml IH RQ6 [facility] Last Admin: 03/20/18 13:36 Dose: Not Given Enoxaparin Sodium (Lovenox) 30 mg SC DAILY [facility] Last Admin: 03/13/18 09:02 Dose: 30 mg Ferrous Sulfate (Feosol) 325 mg PO DAILY [facility] Last Admin: 03/20/18 10:04 Dose: 325 mg Folic Acid (Folic Acid) 1 mg PO DAILY [facility] Last Admin: 03/20/18 10:04 Dose: 1 mg Furosemide (Lasix) 40 mg PO DAILY [facility] Last Admin: 03/20/18 10:05 Dose: 40 mg Ciprofloxacin (Cipro 400mg/200ml Dsw) 400 mg in 200 mls @ 133 mls/hr IVPB Q12H [facility] PRN Reason: Protocol Last Admin: 03/20/18 11:40 Dose: 133 mls/hr Fat Emulsion Intravenous (Intralipid 20%) 250 mls @ 42 mls/hr IV QOD [facility] Stop: 03/24/18 10:01 Last Admin: 03/18/18 10:30 Dose: 42 mls/hr Multivitamins/Vitamin C 10 ml/ (Amino Acids) 1,010 mls @ 42 mls/hr IV .Q24H [facility] Stop: 03/20/18 17:59 Last Admin: 03/19/18 18:07 Dose: 42 mls/hr Multivitamins/Vitamin C 10 ml/ (Amino Acids) 1,010 mls @ 42 mls/hr IV .Q24H [facility] Stop: 03/21/18 17:59 Insulin Detemir (Levemir) 20 unit SC HS [facility] Last Admin: 03/19/18 21:56 Dose: 20 unit Insulin Human Regular (Novolin R) 0 unit SC ACHS [facility] PRN Reason: Protocol Last Admin: 03/20/18 07:47 Dose: 6 unit Lactulose (Enulose) 20 gm PO TID [facility] Last Admin: 03/20/18 10:05 Dose: 20 gm Multivitamins (Hexavitamin) 1 tab PO DAILY [facility] Last Admin: 03/20/18 10:04 Dose: 1 tab Potassium Chloride (Klor-Con 10) 10 meq PO DAILY@0800 [facility] Last Admin: 03/20/18 07:48 Dose: 10 meq Propranolol HCl (Inderal) 10 mg PO Q12H [facility] Last Admin: 03/20/18 11:40 Dose: 10 mg Rifaximin (Xifaxan) 550 mg PO BID [facility] PRN Reason: Protocol Last Admin: 03/20/18 10:04 Dose: 550 mg Saccharomyces Boulardii (Florastor) 250 mg PO DAILY [facility] Last Admin: 03/20/18 10:04 Dose: 250 mg Tramadol HCl (Ultram) 50 mg PO Q6 PRN PRN Reason: pain Last Admin: 03/14/18 03:22 Dose: 50 mg - Labs Labs: 03/20/18 06:34 03/20/18 06:34 PT 17.9 SECONDS (9.7-12.2) H 03/14/18 14:32 INR 1.6 03/14/18 14:32 APTT 35 SECONDS (21-34) H 03/14/18 14:32 - Constitutional Appears: Older Than Stated Age, Chronically Ill - Head Exam Head Exam: ATRAUMATIC, NORMAL INSPECTION, NORMOCEPHALIC - Eye Exam Eye Exam: EOMI - ENT Exam ENT Exam: Mucous Membranes Moist - Neck Exam Neck Exam: Full ROM, Normal Inspection - Respiratory Exam Respiratory Exam: NORMAL BREATHING PATTERN. absent: Respiratory Distress - Cardiovascular Exam Cardiovascular Exam: +S1, +S2 - GI/Abdominal Exam GI & Abdominal Exam: Soft, Normal Bowel Sounds. absent: Tenderness - Extremities Exam Extremities Exam: Full ROM, Normal Inspection - Back Exam Back Exam: NORMAL INSPECTION - Neurological Exam Neurological Exam: Alert, Awake. 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 Hepatic Encephalopathy -continue lactulose 03/19: Ammonia 42 today; patient speaking in full sentences, smiling. If ammonia continues to rise, adjust lactulose regimen. 03/18: ammonia improved from 142 to 35. Continue Lactulose PO until patient has 2- 3 BMs per day. If patient refuses or displays encephalopathy, utilize Lactulose ID. GI onboard, f/u recs. 03/17: Patient refused Lactulose PO due to disorientation and encephalopathic state. Lactulose changed to ID, that way patient cannot refuse medication. Ammonia level today increased from 32 to 142 over 2 days. - CT of head - chronic changes Cirrhosis - Currently encephalopathic likely due to elevated ammonia - Continue lactulose PO TID and rifaximin 550 mg po BID - MELD score of 18 with poor prognosis - GI consult. Dr. Lazo. recs appreciated. Pancytopenia -pt continues to be leukopenic 03/19: WBC 1.6 / plateletes 28 -f/u ferritin, TIBC, Fe, and %Sat 03/18: mildly improved at WBC 1.8; platelets 32. Hemeonc on board, f/u recs. - ANC is 668 so no recommendation for neutropenic precautions - Dr. Maciel/Narcisa consulted - check ferritin levels, do not recommend neupogen or platelet transfusions unless patient is bleeding or febrile Hematuria -urology consulted. -f/u recs UTI -continue ciprofloxacin -pt has PCN allergy -started on 03/14/18 Hypokalemia -replete as needed -continue to monitor GI/DVT ppx -hold lovenox for now Case discussed with attending. All medical management as per Dr. Juana Coronado.
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
[2018-03-20 15:49] VITALS: RESP 20
[2018-03-20] MEDS: Insulin Detemir 100 units/ml Vial (Levemir) SC SCH (21:35)
[2018-03-21] MEDS: Ciprofloxacin 400mg/200ml D5W 400 MG/200 ML BAG IVPB SCH ×2 (00:30→12:26)
[2018-03-21] MEDS: Albuterol-Ipratrop 3 mg / 0.5 (3 ml) UD IH SCH ×4 (01:19→20:03)
[2018-03-21 06:36] LABS: HEMOGLOBIN 8.9 g/dL (11.0-16.0); MEAN CELL VOLUME 98.4 fL (81.0-99.0); MEAN CORPUSCULAR HEMOGLOBIN 34.7 pg (27.0-31.0); MEAN CORPUSCULAR HGB CONC 35.3 g/dL (33.0-37.0); MEAN PLATELET VOLUME 8.7 fL (7.2-11.7); RBC 2.57 Mil/uL (3.80-5.20); RED CELL DISTRIBUTION WIDTH 16.2 % (11.5-14.5)
[2018-03-21 06:48] LABS: WHITE BLOOD COUNT 1.1 K/uL (4.8-10.8)
[2018-03-21 06:50] LABS: ALB/GLOB RATIO 0.7 (1.0-2.1); ALBUMIN 2.1 g/dL (3.5-5.0); ALT/SGPT 30 U/L (9-52); AST/SGOT 64 U/L (14-36); BLOOD UREA NITROGEN 13 mg/dL (7-17); CALCIUM 8.3 mg/dl (8.6-10.4); GFR AFRICAN-AMERICAN > 60; GFR NON-AFRICAN AMERICAN > 60
[2018-03-21] MEDS: (Novolin R) Insulin Human Regular 100 units/ml vial SC SCH ×3 (07:46→17:00)
[2018-03-21] MEDS: Potassium Chloride 10 mEq ER Tab PO SCH (07:48)
[2018-03-21 09:50] LABS: LYMPH # 0.3 K/uL (1.0-4.3); NEUT # 0.8 K/uL (1.8-7.0)
--- NOTE | 2018-03-21 10:16 | CP.PCM.PN ---
Subjective - Date & Time of Evaluation Date of Evaluation: 03/21/18 Time of Evaluation: 10:12 - Subjective Subjective: PGY-[address] Coronado's service: Pt seen and examined at bedside. Nursing reports no acute events overnight. Patient found resting comfortably in bed. Nursing reports patient eating, so will stop peripheral nutrition. Objective - Vital Signs/Intake and Output Vital Signs (last 24 hours): Temp Pulse Resp BP Pulse Ox 98 F 61 20 133/76 100 03/21/18 07:00 03/21/18 07:00 03/21/18 07:00 03/21/18 07:00 03/21/18 07:00 Intake and Output: 03/21/18 03/21/18 06:59 18:59 Intake Total 992 Balance 992 - Medications Medications: Current Medications Albuterol/Ipratropium (Duoneb 3 Mg/0.5 Mg (3 Ml) Ud) 3 ml IH RQ6 [facility] Last Admin: 03/21/18 07:44 Dose: Not Given Enoxaparin Sodium (Lovenox) 30 mg SC DAILY [facility] Last Admin: 03/13/18 09:02 Dose: 30 mg Ferrous Sulfate (Feosol) 325 mg PO DAILY [facility] Last Admin: 03/20/18 10:04 Dose: 325 mg Folic Acid (Folic Acid) 1 mg PO DAILY [facility] Last Admin: 03/20/18 10:04 Dose: 1 mg Furosemide (Lasix) 40 mg PO DAILY [facility] Last Admin: 03/20/18 10:05 Dose: 40 mg Ciprofloxacin (Cipro 400mg/200ml Dsw) 400 mg in 200 mls @ 133 mls/hr IVPB Q12H [facility] PRN Reason: Protocol Last Admin: 03/21/18 00:30 Dose: 133 mls/hr Fat Emulsion Intravenous (Intralipid 20%) 250 mls @ 42 mls/hr IV QOD [facility] Stop: 03/24/18 10:01 Last Admin: 03/20/18 12:00 Dose: 42 mls/hr Multivitamins/Vitamin C 10 ml/ (Amino Acids) 1,010 mls @ 42 mls/hr IV .Q24H [facility] Stop: 03/21/18 17:59 Last Admin: 03/20/18 17:30 Dose: 42 mls/hr Insulin Detemir (Levemir) 20 unit SC [facility] Last Admin: 03/20/18 21:35 Dose: 20 unit Insulin Human Regular (Novolin R) 0 unit SC ACHS [facility] PRN Reason: Protocol Last Admin: 03/21/18 07:46 Dose: 8 unit Lactulose (Enulose) 20 gm PO TID [facility] Last Admin: 03/20/18 17:10 Dose: 20 gm Multivitamins (Hexavitamin) 1 tab PO DAILY [facility] Last Admin: 03/20/18 10:04 Dose: 1 tab Potassium Chloride (Klor-Con 10) 10 meq PO DAILY@0800 [facility] Last Admin: 03/21/18 07:48 Dose: 10 meq Propranolol HCl (Inderal) 10 mg PO Q12H [facility] Last Admin: 03/21/18 00:31 Dose: 10 mg Rifaximin (Xifaxan) 550 mg PO BID [facility] PRN Reason: Protocol Last Admin: 03/20/18 17:10 Dose: 550 mg Saccharomyces Boulardii (Florastor) 250 mg PO DAILY [facility] Last Admin: 03/20/18 10:04 Dose: 250 mg Tramadol HCl (Ultram) 50 mg PO Q6 PRN PRN Reason: pain Last Admin: 03/14/18 03:22 Dose: 50 mg - Labs Labs: 03/21/18 06:29 03/21/18 06:29 PT 17.9 SECONDS (9.7-12.2) H 03/14/18 14:32 INR 1.6 03/14/18 14:32 APTT 35 SECONDS (21-34) H 03/14/18 14:32 - Additional Findings Additional findings: - Constitutional Appears: Older Than Stated Age, Chronically Ill - Head Exam Head Exam: ATRAUMATIC, NORMAL INSPECTION, NORMOCEPHALIC - Eye Exam Eye Exam: EOMI - ENT Exam ENT Exam: Mucous Membranes Moist - Neck Exam Neck Exam: Full ROM, Normal Inspection - Respiratory Exam Respiratory Exam: NORMAL BREATHING PATTERN. absent: Respiratory Distress - Cardiovascular Exam Cardiovascular Exam: +S1, +S2 - GI/Abdominal Exam GI & Abdominal Exam: Soft, Normal Bowel Sounds. absent: Tenderness - Extremities Exam Extremities Exam: Full ROM, Normal Inspection - Back Exam Back Exam: NORMAL INSPECTION - Neurological Exam Neurological Exam: Alert, Awake. absent: Oriented x3 - Psychiatric Exam Psychiatric exam: Flat Affect - Skin Skin Exam: Dry, Intact, Normal Color, Warm Assessment and Plan - Assessment and Plan (Free Text) Plan: Hepatic Encephalopathy Admit to tele GI consultants, Dr. Lazo/Felix 03/21: Ammonia 33 today If patient refuses or displays encephalopathy, utilize Lactulose MA. - CT of head - chronic changes Cirrhosis GI consult. Dr. Lazo. recs appreciated. - Hx of Hep C - Continue lactulose PO TID and rifaximin 550 mg po BID - MELD score of 18 with poor prognosis Lasix 40mg IV Daily Pancytopenia Dr. Maciel/Narcisa consulted - WBC 1.0 - ANC is 792 (03/21/18) so no recommendation for neutropenic precautions - ferritin levels (03/20/18 - 663) - do not recommend neupogen or platelet transfusions unless patient is bleeding or febrile Folic Acid 1mg PO Daily Diabetes Mellitus Levemir 20 units SC HS ISS Accuchecks Hypoglycemia protocol Hematuria Urology consulted, Dr. Harvey - recommend hematuria workup UTI -continue ciprofloxacin (Day 8) -pt has PCN allergy Hypokalemia -replete as needed -continue to monitor Kcl 10mg PO Daily Prophylaxis -hold lovenox for now - Florastor 250mg PO Daily TPN Case discussed with attending. All medical management as per Dr. Juana Coronado.
[2018-03-21] MEDS: Multiple Vitamins Tab PO SCH (10:18)
[2018-03-21] MEDS: Saccharomyces Boulardi 250 mg Cap PO SCH (10:18)
[2018-03-21] MEDS ORDERED: Dextrose 50% SYRINGE Inj (50 ml) IV PRN (10:25)
[2018-03-21] MEDS ORDERED: Glucagon Recombinant 1 mg Inj IM PRN (10:25)
--- NOTE | 2018-03-21 13:46 | CP.PCM.PN ---
Subjective - Date & Time of Evaluation Date of Evaluation: 03/21/18 Time of Evaluation: 13:45 - Subjective Subjective: Eating better Encephalopathy improving. Talking On Lactuose/Xifaxan Objective - Vital Signs/Intake and Output Vital Signs (last 24 hours): Temp Pulse Resp BP Pulse Ox 98 F 61 20 134/75 100 03/21/18 07:00 03/21/18 07:00 03/21/18 07:00 03/21/18 10:19 03/21/18 07:00 Intake and Output: 03/21/18 03/21/18 06:59 18:59 Intake Total 992 Balance 992 - Medications Medications: Current Medications Albuterol/Ipratropium (Duoneb 3 Mg/0.5 Mg (3 Ml) Ud) 3 ml IH RQ6 [facility] Last Admin: 03/21/18 13:38 Dose: Not Given Dextrose (Dextrose 50% Inj) 0 ml IV STAT PRN; Protocol PRN Reason: Hypoglycemia Protocol Dextrose (Glutose 15) 0 gm PO ONCE PRN; Protocol PRN Reason: Hypoglycemia Protocol Enoxaparin Sodium (Lovenox) 30 mg SC DAILY [facility] Last Admin: 03/13/18 09:02 Dose: 30 mg Ferrous Sulfate (Feosol) 325 mg PO DAILY [facility] Last Admin: 03/21/18 10:18 Dose: 325 mg Folic Acid (Folic Acid) 1 mg PO DAILY [facility] Last Admin: 03/21/18 10:15 Dose: 1 mg Furosemide (Lasix) 40 mg PO DAILY [facility] Last Admin: 03/21/18 10:19 Dose: 40 mg Glucagon (Glucagen Diagnostic Kit) 0 mg IM STAT PRN; Protocol PRN Reason: Hypoglycemia Protocol Ciprofloxacin (Cipro 400mg/200ml Dsw) 400 mg in 200 mls @ 133 mls/hr IVPB Q12H [facility] PRN Reason: Protocol Last Admin: 03/21/18 12:26 Dose: 133 mls/hr Fat Emulsion Intravenous (Intralipid 20%) 250 mls @ 42 mls/hr IV QOD [facility] Stop: 03/24/18 10:01 Last Admin: 03/20/18 12:00 Dose: 42 mls/hr Dextrose (Dextrose 5% In Water 1000 Ml) 1,000 mls @ 0 mls/hr IV .Q0M PRN; Protocol; Per Protocol PRN Reason: Hypoglycemia Protocol Multivitamins/Vitamin C 10 ml/ (Amino Acids) 1,010 mls @ 42 mls/hr IV .Q24H [facility] Stop: 03/22/18 17:59 Insulin Detemir (Levemir) 20 unit SC HS [facility] Last Admin: 03/20/18 21:35 Dose: 20 unit Insulin Human Regular (Novolin R) 0 unit SC ACHS [facility] PRN Reason: Protocol Last Admin: 03/21/18 12:27 Dose: 6 unit Lactulose (Enulose) 20 gm PO TID [facility] Last Admin: 03/21/18 13:35 Dose: 20 gm Multivitamins (Hexavitamin) 1 tab PO DAILY [facility] Last Admin: 03/21/18 10:18 Dose: 1 tab Potassium Chloride (Klor-Con 10) 10 meq PO DAILY@0800 [facility] Last Admin: 03/21/18 07:48 Dose: 10 meq Propranolol HCl (Inderal) 10 mg PO Q12H [facility] Last Admin: 03/21/18 12:05 Dose: Not Given Rifaximin (Xifaxan) 550 mg PO BID [facility] PRN Reason: Protocol Last Admin: 03/21/18 10:18 Dose: 550 mg Saccharomyces Boulardii (Florastor) 250 mg PO DAILY [facility] Last Admin: 03/21/18 10:18 Dose: 250 mg Tramadol HCl (Ultram) 50 mg PO Q6 PRN PRN Reason: pain Last Admin: 03/14/18 03:22 Dose: 50 mg - Labs Labs: 03/21/18 06:29 03/21/18 06:29 PT 17.9 SECONDS (9.7-12.2) H 03/14/18 14:32 INR 1.6 03/14/18 14:32 APTT 35 SECONDS (21-34) H 03/14/18 14:32 - Constitutional Appears: Chronically Ill - Eye Exam Eye Exam: Scleral icterus - Respiratory Exam Respiratory Exam: NORMAL BREATHING PATTERN - Cardiovascular Exam Cardiovascular Exam: REGULAR RHYTHM - GI/Abdominal Exam GI & Abdominal Exam: Soft. absent: Tenderness Assessment and Plan (1) Pancytopenia Assessment & Plan: stable Status: Acute (2) Cirrhosis Assessment & Plan: encephalopathy improving Continue Lactulose and Xifaxan On Cipro for UTI Status: Chronic
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
--- NOTE | 2018-03-21 14:31 | PCM.URO ---
Urology Progress Note - General General: Tolerating Diet - Subjective Abdominal Pain: Yes Flank Pain: No Voiding Well: Yes (incontinent) Hematuria: No Chest Pain: No Fever & Chills: No - Objective Lab Studies: Reviewed (creat=0.6 hct=25 platelet 20K wbc=1,100) Lab Results Last 24 Hours: Laboratory Results - last 24 hr 03/20/18 03/20/18 03/21/18 16:20 21:04 06:16 WBC RBC Hgb Hct MCV MCH MCHC RDW Plt Count MPV Neut % (Auto) Lymph % (Auto) Loving % (Auto) Eos % (Auto) Baso % (Auto) Neut # (Auto) Lymph # (Auto) Loving # (Auto) Eos # (Auto) Baso # (Auto) Sodium Potassium Chloride Carbon Dioxide Anion Gap BUN Creatinine Est GFR ( Amer) Est GFR (Non-Af Amer) POC Glucose (mg/dL) 313 H 294 H 368 H Random Glucose Calcium Phosphorus Magnesium Total Bilirubin AST ALT Alkaline Phosphatase Ammonia Total Protein Albumin Globulin Albumin/Globulin Ratio 03/21/18 03/21/18 03/21/18 06:29 06:29 06:29 WBC 1.1 L* RBC 2.57 L Hgb 8.9 L Hct 25.3 L MCV 98.4 MCH 34.7 H MCHC 35.3 RDW 16.2 H Plt Count 20 L* MPV 8.7 Neut % (Auto) 72.0 Lymph % (Auto) 24.0 Loving % (Auto) 2.0 Eos % (Auto) 2.0 Baso % (Auto) 0.0 Neut # (Auto) 0.8 L Lymph # (Auto) 0.3 L Loving # (Auto) 0.0 Eos # (Auto) 0.0 Baso # (Auto) 0.0 Sodium 133 Potassium 4.4 Chloride 96 L Carbon Dioxide 29 Anion Gap 12 BUN 13 Creatinine 0.6 L Est GFR ( Amer) > 60 Est GFR (Non-Af Amer) > 60 POC Glucose (mg/dL) Random Glucose 332 H Calcium 8.3 L Phosphorus 2.4 L Magnesium 1.8 Total Bilirubin 3.5 H AST 64 H ALT 30 Alkaline Phosphatase 119 Ammonia 33 D Total Protein 5.4 L Albumin 2.1 L Globulin 3.2 Albumin/Globulin Ratio 0.7 L 03/21/18 11:10 WBC RBC Hgb Hct MCV MCH MCHC RDW Plt Count MPV Neut % (Auto) Lymph % (Auto) Loving % (Auto) Eos % (Auto) Baso % (Auto) Neut # (Auto) Lymph # (Auto) Loving # (Auto) Eos # (Auto) Baso # (Auto) Sodium Potassium Chloride Carbon Dioxide Anion Gap BUN Creatinine Est GFR ( Amer) Est GFR (Non-Af Amer) POC Glucose (mg/dL) 333 H Random Glucose Calcium Phosphorus Magnesium Total Bilirubin AST ALT Alkaline Phosphatase Ammonia Total Protein Albumin Globulin Albumin/Globulin Ratio Intake & Output: Intake & Output 03/20/18 03/21/18 03/21/18 18:59 06:59 18:59 Intake Total 992 Balance 992 Intake: Intake, IV Amount 872 Left Forearm 200 Right Upper arm 672 Oral 120 Other: # Voids Urine, Voided 1 # Bowel Movements 1 0 Vital Signs: Vital Signs - 24 hr 03/20/18 03/20/18 03/21/18 15:00 23:35 07:00 Temperature 98.3 F 98.0 F 98 F Pulse Rate 76 84 61 Respiratory 20 20 20 Rate Blood Pressure 124/68 106/64 133/76 O2 Sat by Pulse 98 96 100 Oximetry 03/21/18 10:19 Temperature Pulse Rate Respiratory Rate Blood Pressure 134/75 O2 Sat by Pulse Oximetry - Physical Exam Abdominal Exam: Soft, Non-Distended. absent: Non-Tender Back: No CVA Tenderness - Plan Additional Information: IMP: klebsiella UTI. on cipro. consider w/u re hematuria - Date & Time of Note Date: 03/21/18 Time: 14:32
[2018-03-21 15:20] VITALS: BP 109/68; PULSE 85; TEMP 98.5; O2SAT 97
[2018-03-21] MEDS ORDERED: PPN#5 IV SCH (18:00)
== END 2018-03-21 21:47 | disposition home or self-care (01) | DRG 808 ==
LOC: C.ER 20:50 → C.9E 22:12 → C.6T 22:12
PROVIDERS: ADMIT Internal Medicine Nephrology; ATTEND Internal Medicine Nephrology
PROC: 0T9B70Z Drainage of Bladder with Drainage Device, Via Natural or Artificial Opening (ICD-10-PCS; principal; 2018-03-10)
PROC: 30233R1 Transfusion of Nonautologous Platelets into Peripheral Vein, Percutaneous Approach (ICD-10-PCS; 2018-03-14)
PROC: 30233K1 Transfusion of Nonautologous Frozen Plasma into Peripheral Vein, Percutaneous Approach (ICD-10-PCS; 2018-03-14)
DX: D61.818 Other pancytopenia (principal); A41.9 Sepsis, unspecified organism; K50.911 Crohn's disease, unspecified, with rectal bleeding; K76.6 Portal hypertension; N39.0 Urinary tract infection, site not specified; E72.20 Disorder of urea cycle metabolism, unspecified; D68.9 Coagulation defect, unspecified; M81.0 Age-related osteoporosis without current pathological fracture; M17.12 Unilateral primary osteoarthritis, left knee; J45.909 Unspecified asthma, uncomplicated; I10 Essential (primary) hypertension; G89.29 Other chronic pain; F41.9 Anxiety disorder, unspecified; Z87.891 Personal history of nicotine dependence; E10.40 Type 1 diabetes mellitus with diabetic neuropathy, unspecified; L40.9 Psoriasis, unspecified; F32.9 Major depressive disorder, single episode, unspecified; Z88.8 Allergy status to other drugs, medicaments and biological substances; Z88.6 Allergy status to analgesic agent; Z88.5 Allergy status to narcotic agent; Z88.0 Allergy status to penicillin; K74.60 Unspecified cirrhosis of liver; D73.1 Hypersplenism; R41.0 Disorientation, unspecified; K72.90 Hepatic failure, unspecified without coma; R31.9 Hematuria, unspecified; Z91.14 Patient's other noncompliance with medication regimen; B19.20 Unspecified viral hepatitis C without hepatic coma; R32 Unspecified urinary incontinence; M54.5 Low back pain; E87.6 Hypokalemia; K64.8 Other hemorrhoids; E88.09 Other disorders of plasma-protein metabolism, not elsewhere classified; M54.6 Pain in thoracic spine; B96.1 Klebsiella pneumoniae [K. pneumoniae] as the cause of diseases classified elsewhere; S72.141D Displaced intertrochanteric fracture of right femur, subsequent encounter for closed fracture with routine healing; V89.2XXD Person injured in unspecified motor-vehicle accident, traffic, subsequent encounter; S73.004D Unspecified dislocation of right hip, subsequent encounter; S06.5X9D Traumatic subdural hemorrhage with loss of consciousness of unspecified duration, subsequent encounter

== ENCOUNTER 2018-04-10 16:03 | Inpatient (IN) | payer MEDICARE, MEDICAID ==
[2018-04-10 16:03] VITALS: BMI 24.0
[2018-04-10 17:07] LABS: BASO % 0.4 % (0.0-2.0); EOS % 1.1 % (0.0-4.0); HEMOGLOBIN 10.4 g/dL (11.0-16.0); LYMPH # 0.4 K/uL (1.0-4.3); LYMPH % 23.9 % (20.0-40.0); MEAN CELL VOLUME 100.6 fL (81.0-99.0); MEAN CORPUSCULAR HEMOGLOBIN 34.4 pg (27.0-31.0); MEAN CORPUSCULAR HGB CONC 34.2 g/dL (33.0-37.0); MEAN PLATELET VOLUME 9.1 fL (7.2-11.7); MONO # 0.1 K/uL (0.0-0.8); MONO % 4.3 % (0.0-10.0); NEUT # 1.1 K/uL (1.8-7.0); NEUT % 70.3 % (50.0-75.0); NRBC % 0.3 % (0.0-2.0); RBC 3.03 Mil/uL (3.80-5.20); RED CELL DISTRIBUTION WIDTH 17.5 % (11.5-14.5)
[2018-04-10 17:16] LABS: WHITE BLOOD COUNT 1.5 K/uL (4.8-10.8)
--- NOTE | 2018-04-10 17:19 | C.PDOC ---
History Of Present Illness Patient is a 72 y/o female who presents to the ED from group home for increased confusion. At baseline, patient is confused secondary to hepatic encephalopothy. Patient arrived with increased confusion and ammonia of 270. No PMHx or other physical complaints at this time. Time Seen by Provider: 04/10/18 16:15 Chief Complaint (Nursing): Altered Mental Status History Per: Other (group home) History/Exam Limitations: None Onset/Duration Of Symptoms: Hrs Onset Of Symptoms: Cannot Confirm Onset Current Symptoms Are (Timing): Still Present Usual Baseline: Alert Confused Use Of Anticoag/Antiplatelets: Unknown Recent travel outside of the [place]: No Additional History Per: [facility] Past Medical History Reviewed: Historical Data, Nursing Documentation, Vital Signs Vital Signs: Last Vital Signs Temp 98.6 F 04/10/18 16:11 Pulse 86 04/10/18 16:11 Resp 18 04/10/18 16:11 BP 118/71 04/10/18 16:11 Pulse Ox 97 04/10/18 17:59 - Medical History PMH: Anemia (with Pancytopenia), Anxiety, Arthritis (L KNEE SEVERE OA), Asthma, Bronchitis, Crohn's Disease, Depression, Diabetes, Diverticulitis, Fractures ( right hip), Gastritis, Gall Bladder Disease, Hepatitis (C), HTN, Osteoporosis, Chronic Pain Denies: Chronic Kidney Disease Surgical History: Appendectomy, Cholecystectomy - [facility] Procedures CORONAR ARTERIOGR-2 CATH (08/02/15) DRAINAGE OF BLADDER WITH DRAINAGE DEVICE, VIA OPENING (03/07/18) INSERTION OF INFUSION DEV INTO SUP VENA CAVA, PERC APPROACH (07/15/17) INSPECTION OF LOWER INTESTINAL TRACT, ENDO (07/11/16) LEFT HEART CARDIAC CATH (08/02/15) LT HEART ANGIOCARDIOGRAM (08/02/15) OTHER ENDOSCOPY OF SM INTEST (07/09/13) REPOSITION R UP FEMUR WITH INTRAMED FIX, PERC APPROACH (11/08/17) TRANSFUSE NONAUT FRESH PLASMA IN PERIPH VEIN, PERC (11/08/17) TRANSFUSE NONAUT FROZEN PLASMA IN PERIPH VEIN, PERC (03/07/18) TRANSFUSE NONAUT PLATELETS IN PERIPH VEIN, PERC (03/07/18) TRANSFUSE NONAUT RED BLOOD CELLS IN PERIPH VEIN, PERC (11/08/17) VACCINATION NEC (07/16/14) Family History: States: No Known Family Hx - Social History Hx Tobacco Use: No Hx Alcohol Use: No Hx Substance Use: No - Immunization History Hx Tetanus Toxoid Vaccination: No (NOT SURE) Hx Influenza Vaccination: No Hx Pneumococcal Vaccination: No Review Of Systems Review Of Systems: ROS cannot be obtained secondary to pt's inabilty to answer questions. (secondary to increased confusion) Physical Exam - Physical Exam Appears: Non-toxic, No Acute Distress Skin: Normal Color, Warm, Dry Head: Atraumatic, Normacephalic Oral Mucosa: Moist Chest: Symmetrical Cardiovascular: Rhythm Regular, No Murmur Respiratory: Normal Breath Sounds, No Rales, No Rhonchi, No Wheezing Gastrointestinal/Abdominal: Soft, No Tenderness, Other (hepatomegaly) Extremity: Normal ROM (x4) Additional Physical Exam Comments: assessment: AMD most likely secondary to increased ammonia levels ED Course And Treatment - Laboratory Results Result Diagrams: 04/10/18 17:03 04/10/18 17:03 ECG: Interpreted By Me, Viewed By Me ECG Rhythm: Sinus Rhythm ECG Interpretation: Normal Interpretation Of ECG: normal intervals, normal axis; no st/t wave abnormalities. Rate From EC (bpm) O2 Sat by Pulse Oximetry: 97 Pulse Ox Interpretation: Normal - Other Rad CXR X-Ray: Interpreted by Me, Viewed By Me Interpretation: PROCEDURE: CHEST RADIOGRAPH, 1 VIEW. HISTORY: AMS. COMPARISON: 03/07/2018. FINDINGS: LUNGS: The lungs are well inflated. There is confluent airspace disease in the left lower lobe. PLEURA: No pneumothorax. Small left pleural effusion. CARDIOVASCULAR: Normal. OSSEOUS STRUCTURES: No significant abnormalities. VISUALIZED UPPER ABDOMEN: Normal. OTHER FINDINGS: None. IMPRESSION: Suspect left lower lobe pneumonia and small left pleural effusion. Follow-up after medical management is recommended to ensure complete resolution. Progress Note: EKG, UA, CXR, blood work, and ammonia ordered. Patient to be admitted to medical surgical floor under Dr Juana oCronado for hepatic encephalopathy and pneumonia. Disposition Discussed With : Nancy Coronado Doctor Will See Patient In The: Hospital Counseled Patient/Family Regarding: Studies Performed, Diagnosis - Disposition Disposition: HOSPITALIZED Disposition Time: 17:58 Condition: FAIR Forms: [employer] (Iraqi) - Clinical Impression Clinical Impression: Hepatic encephalopathy, Pneumonia - Scribe Statement The provider has reviewed the documentation as recorded by the Scribe Karolina Frankford All medical record entries made by the Yuliya were at my direction and personally dictated by me. I have reviewed the chart and agree that the record accurately reflects my personal performance of the history, physical exam, medical decision making, and the department course for this patient. I have also personally directed, reviewed, and agree with the discharge instructions and disposition.
[2018-04-10 17:24] LABS: INR 1.8; PROTHROMBIN TIME 19.3 SECONDS (9.7-12.2)
[2018-04-10 17:25] LABS: ALB/GLOB RATIO 0.7 (1.0-2.1); ALBUMIN 2.2 g/dL (3.5-5.0); ALT/SGPT 43 U/L (9-52); AST/SGOT 80 U/L (14-36); BLOOD UREA NITROGEN 16 mg/dL (7-17); CALCIUM 8.4 mg/dl (8.6-10.4); GFR AFRICAN-AMERICAN > 60; GFR NON-AFRICAN AMERICAN > 60; LIPASE 158 U/L (23-300)
[2018-04-10 17:30] LABS: SQUAMOUS EPITHIAL 4 /hpf (0-5); URINE BACTERIA MOD (<OCC); URINE BILIRUBIN 1+ (NEGATIVE); URINE BLOOD 1+ (NEGATIVE); URINE GLUCOSE (UA) NORMAL (Normal); URINE LEUKOCYTE ESTERASE TRACE Leu/uL (Negative); URINE PROTEIN NEGATIVE (NEGATIVE)
[2018-04-10 17:35] LABS: URINE COLOR YELLOW (YELLOW)
[2018-04-10 17:36] LABS: URINE CLARITY Turbid (Clear)
[2018-04-10] MEDS ORDERED: Moxifloxacin IV 400mg/250ml NS 400 MG/250 ML BAG IVPB ONE (17:54)
[2018-04-10] MEDS ORDERED: Cefepime 1 GM in Sodium Chloride 0.9% 50 ML IVPB ONE (18:07)
[2018-04-10] MEDS ORDERED: Cefepime IV 1 gm in Dextrose 1 GM/50 ML BAG IVPB ONE (19:00)
[2018-04-10] MEDS ORDERED: Cefepime IV 1 gm in Dextrose 1 GM/50 ML BAG IVPB SCH (19:00)
--- NOTE | 2018-04-10 23:07 | CP.PCM.HP ---
Past Patient History - Infectious Disease Hx of Infectious Diseases: None - Past Medical History & Family History Past Medical History?: Yes - Past Social History Smoking Status: Former Smoker - CARDIAC Hx Hypertension: Yes - PULMONARY Hx Asthma: Yes Hx Bronchitis: Yes - NEUROLOGICAL Other/Comment: SEVERE NEUROPATHY, hepatic encephalopathy. subdural hematoma - HEENT Hx HEENT Problems: Yes Other/Comment: Dimished vision bilateral - RENAL Hx Chronic Kidney Disease: No - ENDOCRINE/METABOLIC Hx Diabetes Mellitus Type 1: Yes Hx Diabetes Mellitus Type 2: Yes - HEMATOLOGICAL/ONCOLOGICAL Hx Anemia: Yes (with Pancytopenia) - INTEGUMENTARY Hx Psoriasis: Yes - MUSCULOSKELETAL/RHEUMATOLOGICAL Hx Arthritis: Yes (L KNEE SEVERE OA) Hx Fractures: Yes (right hip) Hx Osteoporosis: Yes - GASTROINTESTINAL Hx Crohn's Disease: Yes Hx Diverticulitis: Yes Hx Gall Bladder Disease: Yes Hx Gastritis: Yes - GENITOURINARY/GYNECOLOGICAL Hx Genitourinary Disorders: No - PSYCHIATRIC Hx Anxiety: Yes Hx Depression: Yes Hx Substance Use: No - SURGICAL HISTORY Hx Appendectomy: Yes Hx Cholecystectomy: Yes - ANESTHESIA Hx Anesthesia: Yes Hx Anesthesia Reactions: No Hx Malignant Hyperthermia: No Meds Allergies/Adverse Reactions: Allergies Allergy/AdvReac Type Severity Reaction Status Date / Time acetaminophen [From Percocet] Allergy RASH Verified 04/10/18 16:16 aspirin Allergy RASH Verified 04/10/18 16:16 oxycodone HCl [From Percocet] Allergy RASH Verified 04/10/18 16:16 Penicillins Allergy RASH Verified 04/10/18 16:16 PAIN MEDICATIONS Allergy Uncoded 04/10/18 16:16 Results - Vital Signs Recent Vital Signs: Last Vital Signs Temp 98.6 F 04/10/18 16:11 Pulse 80 04/10/18 22:00 Resp 14 04/10/18 22:00 BP 110/70 04/10/18 22:00 Pulse Ox 96 04/10/18 22:00 - Labs Result Diagrams: 04/10/18 17:03 04/10/18 17:03 Labs: Laboratory Results - last 24 hr 04/10/18 04/10/18 04/10/18 16:11 17:03 17:03 WBC 1.5 L* RBC 3.03 L Hgb 10.4 L Hct 30.4 L MCV 100.6 H D MCH 34.4 H MCHC 34.2 RDW 17.5 H Plt Count 39 L MPV 9.1 Neut % (Auto) 70.3 Lymph % (Auto) 23.9 Ness % (Auto) 4.3 Eos % (Auto) 1.1 Baso % (Auto) 0.4 Neut # (Auto) 1.1 L Lymph # (Auto) 0.4 L Ness # (Auto) 0.1 Eos # (Auto) 0.0 Baso # (Auto) 0.0 PT INR APTT Sodium 140 Potassium 4.3 Chloride 102 Carbon Dioxide 32 H Anion Gap 9 L BUN 16 Creatinine 0.5 L Est GFR ( Amer) > 60 Est GFR (Non-Af Amer) > 60 POC Glucose (mg/dL) 274 H Random Glucose 234 H Calcium 8.4 L Total Bilirubin 4.4 H AST 80 H D ALT 43 Alkaline Phosphatase 189 H D Ammonia Troponin I 0.0200 Total Protein 5.6 L Albumin 2.2 L Globulin 3.3 Albumin/Globulin Ratio 0.7 L Lipase 158 Urine Color Urine Clarity Urine pH Ur Specific Berry Urine Protein Urine Glucose (UA) Urine Ketones Urine Blood Urine Nitrate Urine Bilirubin Urine Urobilinogen Ur Leukocyte Esterase Urine WBC (Auto) Urine RBC (Auto) Ur Squamous Epith Cells Ur Transition Epith Cell Urine Bacteria 04/10/18 04/10/18 04/10/18 17:03 17:03 17:15 WBC RBC Hgb Hct MCV MCH MCHC RDW Plt Count MPV Neut % (Auto) Lymph % (Auto) Ness % (Auto) Eos % (Auto) Baso % (Auto) Neut # (Auto) Lymph # (Auto) Ness # (Auto) Eos # (Auto) Baso # (Auto) PT 19.3 H INR 1.8 APTT 42 H Sodium Potassium Chloride Carbon Dioxide Anion Gap BUN Creatinine Est GFR ( Amer) Est GFR (Non-Af Amer) POC Glucose (mg/dL) Random Glucose Calcium Total Bilirubin AST ALT Alkaline Phosphatase Ammonia 83 H D Troponin I Total Protein Albumin Globulin Albumin/Globulin Ratio Lipase Urine Color Yellow Urine Clarity Turbid Urine pH 6.0 Ur Specific Berry 1.019 Urine Protein Negative Urine Glucose (UA) Normal Urine Ketones Negative Urine Blood 1+ H Urine Nitrate Negative Urine Bilirubin 1+ H Urine Urobilinogen 4.0 H Ur Leukocyte Esterase Trace Urine WBC (Auto) 29 H Urine RBC (Auto) 17 H Ur Squamous Epith Cells 4 Ur Transition Epith Cell 1 Urine Bacteria Mod H
[2018-04-11] MEDS: Albuterol-Ipratrop 3 mg / 0.5 (3 ml) UD IH SCH ×4 (01:59→19:40)
[2018-04-11] MEDS ORDERED: Enoxaparin 30 mg Syringe SC SCH (10:00)
[2018-04-11] MEDS: Saccharomyces Boulardi 250 mg Cap PO SCH (10:55)
[2018-04-11] MEDS: Pantoprazole 40 mg EC Tab PO SCH (10:55)
[2018-04-11] MEDS: Multiple Vitamins Tab PO SCH (10:55)
[2018-04-11 11:12] LABS: INR 1.9; PROTHROMBIN TIME 20.8 SECONDS (9.7-12.2)
[2018-04-11 11:13] LABS: BASO % 0.6 % (0.0-2.0); EOS % 1.3 % (0.0-4.0); HEMOGLOBIN 9.6 g/dL (11.0-16.0); LYMPH # 0.4 K/uL (1.0-4.3); LYMPH % 23.5 % (20.0-40.0); MEAN CELL VOLUME 101.7 fL (81.0-99.0); MEAN CORPUSCULAR HEMOGLOBIN 34.7 pg (27.0-31.0); MEAN CORPUSCULAR HGB CONC 34.1 g/dL (33.0-37.0); MEAN PLATELET VOLUME 11.2 fL (7.2-11.7); MONO # 0.1 K/uL (0.0-0.8); NEUT # 1.1 K/uL (1.8-7.0); NEUT % 70.6 % (50.0-75.0); NRBC % 0.2 % (0.0-2.0); RBC 2.78 Mil/uL (3.80-5.20); RED CELL DISTRIBUTION WIDTH 17.6 % (11.5-14.5)
[2018-04-11 11:20] LABS: ALB/GLOB RATIO 0.7 (1.0-2.1); ALBUMIN 2.1 g/dL (3.5-5.0); ALT/SGPT 43 U/L (9-52); AST/SGOT 70 U/L (14-36); BILIRUBIN,DIRECT 2.3 mg/dL (0.0-0.4); BLOOD UREA NITROGEN 14 mg/dL (7-17); CALCIUM 8.2 mg/dl (8.6-10.4); GFR AFRICAN-AMERICAN > 60; GFR NON-AFRICAN AMERICAN > 60
[2018-04-11 11:21] LABS: WHITE BLOOD COUNT 1.6 K/uL (4.8-10.8)
--- NOTE | 2018-04-11 13:52 | CP.PCM.PN ---
Subjective - Date & Time of Evaluation Date of Evaluation: 04/11/18 Time of Evaluation: 13:48 - Subjective Subjective: CC: altered mental status [facility], elevated Ammonia levels , encephalopathic. Pt is well known to me with long history of cirrhosis with sevee pancytopenia and portal hypertension, recuurent admissions for hepatic encephalopathy. CXR shows pulmonary infiltrate. History of HCV, followed by Dr Melany Arguello as outpatient but probably not compliant with office follow up due to frequent inpatient admissions and rehab facility admissions in the most recent past since falling and sustaining a hip fracture requiring surgical intervention a few months ago. Pt can not provide a history as her sensorium is altered. Objective - Vital Signs/Intake and Output Vital Signs (last 24 hours): Temp Pulse Resp BP Pulse Ox 98.3 F 87 20 120/74 95 04/11/18 08:52 04/11/18 13:35 04/11/18 08:52 04/11/18 10:54 04/11/18 08:52 Intake and Output: 04/11/18 04/11/18 06:59 18:59 Intake Total 250 Balance 250 - Medications Medications: Current Medications Albuterol/Ipratropium (Duoneb 3 Mg/0.5 Mg (3 Ml) Ud) 3 ml IH RQ6 [facility] Last Admin: 04/11/18 13:34 Dose: 3 ml Ferrous Sulfate (Feosol) 325 mg PO DAILY [facility] Last Admin: 04/11/18 10:55 Dose: 325 mg Folic Acid (Folic Acid) 1 mg PO DAILY [facility] Last Admin: 04/11/18 10:55 Dose: 1 mg Furosemide (Lasix) 40 mg PO DAILY [facility] Last Admin: 04/11/18 10:54 Dose: 40 mg Cefepime HCl 1 gm/ Dextrose 50 mls @ 100 mls/hr IVPB Q12H [facility] PRN Reason: Protocol Last Admin: 04/11/18 06:01 Dose: 100 mls/hr Lactulose (Enulose) 20 gm PO Q6 [facility] Last Admin: 04/11/18 12:41 Dose: 20 gm Multivitamins (Hexavitamin) 1 tab PO DAILY [facility] Last Admin: 04/11/18 10:55 Dose: 1 tab Mupirocin (Bactroban Ointment) 22 gm EXT BID [facility] Last Admin: 04/11/18 10:56 Dose: 1 applic Pantoprazole Sodium (Protonix Ec Tab) 40 mg PO DAILY [facility] Last Admin: 04/11/18 10:55 Dose: 40 mg Propranolol HCl (Inderal) 10 mg PO Q12 [facility] Last Admin: 04/11/18 10:56 Dose: 10 mg Rifaximin (Xifaxan) 550 mg PO BID [facility] PRN Reason: Protocol Last Admin: 04/11/18 10:56 Dose: 550 mg Saccharomyces Boulardii (Florastor) 250 mg PO DAILY [facility] Last Admin: 04/11/18 10:55 Dose: 250 mg Tramadol HCl (Ultram) 50 mg PO Q6 PRN PRN Reason: pain - Labs Labs: 04/11/18 10:53 04/11/18 10:53 PT 20.8 SECONDS (9.7-12.2) H 04/11/18 10:53 INR 1.9 04/11/18 10:53 APTT 42 SECONDS (21-34) H 04/10/18 17:03 - Constitutional Appears: Chronically Ill - Eye Exam Eye Exam: Scleral icterus - Neck Exam Neck Exam: Normal Inspection - Respiratory Exam Respiratory Exam: NORMAL BREATHING PATTERN - Cardiovascular Exam Cardiovascular Exam: REGULAR RHYTHM - GI/Abdominal Exam GI & Abdominal Exam: Soft. absent: Tenderness, Organomegaly - Extremities Exam Extremities Exam: Normal Inspection. absent: Calf Tenderness, Pedal Edema, Tenderness - Neurological Exam Neurological Exam: Awake. absent: Alert, Oriented x3 Additional comments: asterixis - Psychiatric Exam Psychiatric exam: Flat Affect - Skin Skin Exam: Warm Assessment and Plan (1) Hepatic encephalopathy Assessment & Plan: Lactulose Follow clinical exam Status: Acute (2) Pneumonia Assessment & Plan: On Rocephin Monitor Tx per primary medical Status: Acute (3) Pancytopenia Assessment & Plan: due to cirrhosis. Chronic, unchanged Status: Acute (4) Cirrhosis Assessment & Plan: end stage From HCV Check viral load Status: Chronic
--- NOTE | 2018-04-11 19:28 | CP.PCM.PN ---
Subjective - Date & Time of Evaluation Date of Evaluation: 04/11/18 Time of Evaluation: 11:20 - Subjective Subjective: clinically same Objective - Vital Signs/Intake and Output Vital Signs (last 24 hours): Temp Pulse Resp BP Pulse Ox 98.4 F 78 20 133/69 97 04/11/18 15:00 04/11/18 15:00 04/11/18 15:00 04/11/18 15:00 04/11/18 15:00 Intake and Output: 04/11/18 04/12/18 18:59 06:59 Intake Total 250 Balance 250 - Medications Medications: Current Medications Albuterol/Ipratropium (Duoneb 3 Mg/0.5 Mg (3 Ml) Ud) 3 ml IH RQ6 [facility] Last Admin: 04/11/18 13:34 Dose: 3 ml Ferrous Sulfate (Feosol) 325 mg PO DAILY [facility] Last Admin: 04/11/18 10:55 Dose: 325 mg Folic Acid (Folic Acid) 1 mg PO DAILY [facility] Last Admin: 04/11/18 10:55 Dose: 1 mg Furosemide (Lasix) 40 mg PO DAILY [facility] Last Admin: 04/11/18 10:54 Dose: 40 mg Cefepime HCl 1 gm/ Dextrose 50 mls @ 100 mls/hr IVPB Q12H [facility] PRN Reason: Protocol Last Admin: 04/11/18 18:56 Dose: 100 mls/hr Insulin Aspart (Novolog) 0 unit SC ACHS [facility] PRN Reason: Protocol Lactulose (Enulose) 20 gm PO Q6 [facility] Last Admin: 04/11/18 17:54 Dose: 20 gm Multivitamins (Hexavitamin) 1 tab PO DAILY [facility] Last Admin: 04/11/18 10:55 Dose: 1 tab Mupirocin (Bactroban Ointment) 22 gm EXT BID [facility] Last Admin: 04/11/18 17:54 Dose: 22 gm Pantoprazole Sodium (Protonix Ec Tab) 40 mg PO DAILY [facility] Last Admin: 04/11/18 10:55 Dose: 40 mg Propranolol HCl (Inderal) 10 mg PO Q12 [facility] Last Admin: 04/11/18 10:56 Dose: 10 mg Rifaximin (Xifaxan) 550 mg PO BID [facility] PRN Reason: Protocol Last Admin: 04/11/18 17:54 Dose: 550 mg Saccharomyces Boulardii (Florastor) 250 mg PO DAILY [facility] Last Admin: 04/11/18 10:55 Dose: 250 mg Tramadol HCl (Ultram) 50 mg PO Q6 PRN PRN Reason: pain - Labs Labs: 04/11/18 10:53 04/11/18 10:53 PT 20.8 SECONDS (9.7-12.2) H 04/11/18 10:53 INR 1.9 04/11/18 10:53 APTT 42 SECONDS (21-34) H 04/10/18 17:03 - Constitutional Appears: Well - Head Exam Head Exam: ATRAUMATIC, NORMAL INSPECTION, NORMOCEPHALIC - Eye Exam Eye Exam: EOMI, Normal appearance, PERRL Pupil Exam: NORMAL ACCOMODATION, PERRL - ENT Exam ENT Exam: Mucous Membranes Moist, Normal Exam - Neck Exam Neck Exam: Full ROM, Normal Inspection. absent: Lymphadenopathy - Respiratory Exam Respiratory Exam: Decreased Breath Sounds - Cardiovascular Exam Cardiovascular Exam: REGULAR RHYTHM, +S1, +S2 - GI/Abdominal Exam GI & Abdominal Exam: Soft, Diminished Bowel Sounds - Rectal Exam Rectal Exam: Deferred
[2018-04-11] MEDS: (Novolog) Insulin Aspart, Recombinant 100 u/ml 10 ml vial SC SCH (22:57)
[2018-04-12] MEDS: Albuterol-Ipratrop 3 mg / 0.5 (3 ml) UD IH SCH ×4 (01:47→19:52)
--- NOTE | 2018-04-12 02:20 | CARD ---
APPROVED REPORT EKG Measurement Heart [id number] <Conclusion> Normal sinus rhythm Normal ECG
[2018-04-12 06:42] LABS: HEMOGLOBIN 9.7 g/dL (11.0-16.0); MEAN CELL VOLUME 99.6 fL (81.0-99.0); MEAN CORPUSCULAR HEMOGLOBIN 35.2 pg (27.0-31.0); MEAN CORPUSCULAR HGB CONC 35.3 g/dL (33.0-37.0); MEAN PLATELET VOLUME 9.3 fL (7.2-11.7); RBC 2.76 Mil/uL (3.80-5.20); RED CELL DISTRIBUTION WIDTH 16.6 % (11.5-14.5)
[2018-04-12 06:49] LABS: WHITE BLOOD COUNT 1.7 K/uL (4.8-10.8)
[2018-04-12 07:06] LABS: ALB/GLOB RATIO 0.6 (1.0-2.1); ALT/SGPT 32 U/L (9-52); AST/SGOT 59 U/L (14-36); BLOOD UREA NITROGEN 13 mg/dL (7-17); CALCIUM 8.2 mg/dl (8.6-10.4); GFR AFRICAN-AMERICAN > 60; GFR NON-AFRICAN AMERICAN > 60
[2018-04-12] MEDS: (Novolog) Insulin Aspart, Recombinant 100 u/ml 10 ml vial SC SCH ×4 (08:31→22:03)
[2018-04-12] MEDS: Saccharomyces Boulardi 250 mg Cap PO SCH (10:56)
[2018-04-12] MEDS: Pantoprazole 40 mg EC Tab PO SCH (10:57)
[2018-04-12] MEDS: Multiple Vitamins Tab PO SCH (10:57)
--- NOTE | 2018-04-12 11:10 | CP.PCM.PN ---
Subjective - Date & Time of Evaluation Date of Evaluation: 04/12/18 Time of Evaluation: 11:09 - Subjective Subjective: Patient complains of feeling cold. She denies having nausea, vomiting, abdominal pain. Objective - Vital Signs/Intake and Output Vital Signs (last 24 hours): Temp Pulse Resp BP Pulse Ox 98.6 F 80 18 116/63 96 04/12/18 07:05 04/12/18 10:55 04/12/18 07:05 04/12/18 10:55 04/12/18 07:05 Intake and Output: 04/12/18 04/12/18 06:59 18:59 Intake Total 200 170 Balance 200 170 - Medications Medications: Current Medications Albuterol/Ipratropium (Duoneb 3 Mg/0.5 Mg (3 Ml) Ud) 3 ml IH RQ6 [facility] Last Admin: 04/12/18 01:47 Dose: Not Given Ferrous Sulfate (Feosol) 325 mg PO DAILY [facility] Last Admin: 04/12/18 10:56 Dose: 325 mg Folic Acid (Folic Acid) 1 mg PO DAILY [facility] Last Admin: 04/12/18 10:56 Dose: 1 mg Furosemide (Lasix) 40 mg PO DAILY [facility] Last Admin: 04/11/18 10:54 Dose: 40 mg Cefepime HCl 1 gm/ Dextrose 50 mls @ 100 mls/hr IVPB Q12H [facility] PRN Reason: Protocol Last Admin: 04/12/18 06:13 Dose: 100 mls/hr Insulin Aspart (Novolog) 0 unit SC ACHS [facility] PRN Reason: Protocol Last Admin: 04/12/18 08:31 Dose: Not Given Lactulose (Enulose) 20 gm PO Q6 [facility] Last Admin: 04/12/18 06:14 Dose: 20 gm Multivitamins (Hexavitamin) 1 tab PO DAILY [facility] Last Admin: 04/12/18 10:57 Dose: 1 tab Mupirocin (Bactroban Ointment) 22 gm EXT BID [facility] Last Admin: 04/12/18 10:56 Dose: 1 applic Pantoprazole Sodium (Protonix Ec Tab) 40 mg PO DAILY [facility] Last Admin: 04/12/18 10:57 Dose: 40 mg Propranolol HCl (Inderal) 10 mg PO Q12 [facility] Last Admin: 04/12/18 10:58 Dose: 10 mg Rifaximin (Xifaxan) 550 mg PO BID [facility] PRN Reason: Protocol Last Admin: 04/12/18 10:57 Dose: 550 mg Saccharomyces Boulardii (Florastor) 250 mg PO DAILY [facility] Last Admin: 04/12/18 10:56 Dose: 250 mg Tramadol HCl (Ultram) 50 mg PO Q6 PRN PRN Reason: pain - Labs Labs: 04/12/18 06:36 04/12/18 06:36 PT 20.8 SECONDS (9.7-12.2) H 04/11/18 10:53 INR 1.9 04/11/18 10:53 APTT 42 SECONDS (21-34) H 04/10/18 17:03 - Constitutional Appears: No Acute Distress - Head Exam Head Exam: ATRAUMATIC, NORMOCEPHALIC - Eye Exam Eye Exam: EOMI, PERRL, Scleral icterus - Neck Exam Neck Exam: absent: Lymphadenopathy, Thyromegaly - Respiratory Exam Respiratory Exam: NORMAL BREATHING PATTERN. absent: Rales, Rhonchi, Wheezes - Cardiovascular Exam Cardiovascular Exam: REGULAR RHYTHM, +S1, +S2. absent: Gallop, Rubs, Murmur - GI/Abdominal Exam GI & Abdominal Exam: Soft, Normal Bowel Sounds. absent: Tenderness, Mass, Organomegaly Assessment and Plan (1) Hepatic encephalopathy Assessment & Plan: Patient is less confused today. The ammonia level is down to 25. The other complications of cirrhosis are unchanged: coagulopathy and hypersplenism causing thrombocytopenia. Will follow. Status: Acute
[2018-04-12] MEDS ORDERED: Potassium Chloride 20 mEq ER Tab PO ONE (11:43)
--- NOTE | 2018-04-12 15:13 | CP.PCM.PN ---
Subjective - Date & Time of Evaluation Date of Evaluation: 04/12/18 Time of Evaluation: 10:40 - Subjective Subjective: clinically same Objective - Vital Signs/Intake and Output Vital Signs (last 24 hours): Temp Pulse Resp BP Pulse Ox 98.6 F 80 18 146/70 96 04/12/18 07:05 04/12/18 10:55 04/12/18 07:05 04/12/18 12:31 04/12/18 07:05 Intake and Output: 04/12/18 04/12/18 06:59 18:59 Intake Total 200 670 Balance 200 670 - Medications Medications: Current Medications Albuterol/Ipratropium (Duoneb 3 Mg/0.5 Mg (3 Ml) Ud) 3 ml IH RQ6 [facility] Last Admin: 04/12/18 13:27 Dose: 3 ml Ferrous Sulfate (Feosol) 325 mg PO DAILY [facility] Last Admin: 04/12/18 10:56 Dose: 325 mg Folic Acid (Folic Acid) 1 mg PO DAILY [facility] Last Admin: 04/12/18 10:56 Dose: 1 mg Furosemide (Lasix) 40 mg PO DAILY [facility] Last Admin: 04/12/18 12:31 Dose: 40 mg Cefepime HCl 1 gm/ Dextrose 50 mls @ 100 mls/hr IVPB Q12H [facility] PRN Reason: Protocol Last Admin: 04/12/18 06:13 Dose: 100 mls/hr Insulin Aspart (Novolog) 0 unit SC ACHS [facility] PRN Reason: Protocol Last Admin: 04/12/18 12:29 Dose: 3 unit Lactulose (Enulose) 20 gm PO Q6 [facility] Last Admin: 04/12/18 12:31 Dose: 20 gm Multivitamins (Hexavitamin) 1 tab PO DAILY [facility] Last Admin: 04/12/18 10:57 Dose: 1 tab Mupirocin (Bactroban Ointment) 22 gm EXT BID [facility] Last Admin: 04/12/18 10:56 Dose: 1 applic Pantoprazole Sodium (Protonix Ec Tab) 40 mg PO DAILY [facility] Last Admin: 04/12/18 10:57 Dose: 40 mg Propranolol HCl (Inderal) 10 mg PO Q12 [facility] Last Admin: 04/12/18 10:58 Dose: 10 mg Rifaximin (Xifaxan) 550 mg PO BID [facility] PRN Reason: Protocol Last Admin: 04/12/18 10:57 Dose: 550 mg Saccharomyces Boulardii (Florastor) 250 mg PO DAILY [facility] Last Admin: 04/12/18 10:56 Dose: 250 mg Tramadol HCl (Ultram) 50 mg PO Q6 PRN PRN Reason: pain - Labs Labs: 04/12/18 06:36 04/12/18 06:36 PT 20.8 SECONDS (9.7-12.2) H 04/11/18 10:53 INR 1.9 04/11/18 10:53 APTT 42 SECONDS (21-34) H 04/10/18 17:03 - Constitutional Appears: Well - Head Exam Head Exam: ATRAUMATIC, NORMAL INSPECTION, NORMOCEPHALIC - Eye Exam Eye Exam: EOMI, Normal appearance, PERRL Pupil Exam: NORMAL ACCOMODATION, PERRL - ENT Exam ENT Exam: Mucous Membranes Moist, Normal Exam - Neck Exam Neck Exam: Full ROM, Normal Inspection. absent: Lymphadenopathy - Respiratory Exam Respiratory Exam: Decreased Breath Sounds - Cardiovascular Exam Cardiovascular Exam: REGULAR RHYTHM, +S1, +S2 - GI/Abdominal Exam GI & Abdominal Exam: Soft, Diminished Bowel Sounds - Rectal Exam Rectal Exam: Deferred
[2018-04-13] MEDS: Albuterol-Ipratrop 3 mg / 0.5 (3 ml) UD IH SCH ×4 (01:23→19:20)
[2018-04-13 08:05] LABS: ALB/GLOB RATIO 0.6 (1.0-2.1); ALT/SGPT 33 U/L (9-52); AST/SGOT 58 U/L (14-36); BLOOD UREA NITROGEN 13 mg/dL (7-17); CALCIUM 8.3 mg/dl (8.6-10.4); GFR AFRICAN-AMERICAN > 60; GFR NON-AFRICAN AMERICAN > 60
[2018-04-13] MEDS: (Novolog) Insulin Aspart, Recombinant 100 u/ml 10 ml vial SC SCH ×4 (08:30→22:05)
--- NOTE | 2018-04-13 09:24 | CP.PCM.PN ---
Subjective - Date & Time of Evaluation Date of Evaluation: 04/13/18 Time of Evaluation: 09:22 - Subjective Subjective: Patient is complaining of diarrhea. She denies having nausea or vomiting. She also complains of vague, RUQ pain. Objective - Vital Signs/Intake and Output Vital Signs (last 24 hours): Temp Pulse Resp BP Pulse Ox 98.2 F 76 20 111/68 99 04/13/18 07:00 04/13/18 07:00 04/13/18 07:00 04/13/18 07:00 04/13/18 07:00 Intake and Output: 04/13/18 04/13/18 06:59 18:59 Intake Total 480 Balance 480 - Medications Medications: Current Medications Albuterol/Ipratropium (Duoneb 3 Mg/0.5 Mg (3 Ml) Ud) 3 ml IH RQ6 [facility] Last Admin: 04/13/18 07:19 Dose: 3 ml Ferrous Sulfate (Feosol) 325 mg PO DAILY [facility] Last Admin: 04/12/18 10:56 Dose: 325 mg Folic Acid (Folic Acid) 1 mg PO DAILY [facility] Last Admin: 04/12/18 10:56 Dose: 1 mg Furosemide (Lasix) 40 mg PO DAILY [facility] Last Admin: 04/12/18 12:31 Dose: 40 mg Cefepime HCl 1 gm/ Dextrose 50 mls @ 100 mls/hr IVPB Q12H [facility] PRN Reason: Protocol Last Admin: 04/13/18 06:07 Dose: 100 mls/hr Insulin Aspart (Novolog) 0 unit SC ACHS [facility] PRN Reason: Protocol Last Admin: 04/13/18 08:30 Dose: 4 unit Multivitamins (Hexavitamin) 1 tab PO DAILY [facility] Last Admin: 04/12/18 10:57 Dose: 1 tab Mupirocin (Bactroban Ointment) 22 gm EXT BID [facility] Last Admin: 04/12/18 17:34 Dose: 1 applic Pantoprazole Sodium (Protonix Ec Tab) 40 mg PO DAILY [facility] Last Admin: 04/12/18 10:57 Dose: 40 mg Propranolol HCl (Inderal) 10 mg PO Q12 [facility] Last Admin: 04/12/18 22:11 Dose: 10 mg Rifaximin (Xifaxan) 550 mg PO BID [facility] PRN Reason: Protocol Last Admin: 04/12/18 17:33 Dose: 550 mg Saccharomyces Boulardii (Florastor) 250 mg PO DAILY [facility] Last Admin: 04/12/18 10:56 Dose: 250 mg Tramadol HCl (Ultram) 50 mg PO Q6 PRN PRN Reason: pain - Labs Labs: 04/12/18 06:36 04/13/18 07:28 PT 20.8 SECONDS (9.7-12.2) H 04/11/18 10:53 INR 1.9 04/11/18 10:53 APTT 42 SECONDS (21-34) H 04/10/18 17:03 - Constitutional Appears: No Acute Distress - Head Exam Head Exam: ATRAUMATIC, NORMOCEPHALIC - Eye Exam Eye Exam: EOMI, PERRL - Neck Exam Neck Exam: absent: Lymphadenopathy, Thyromegaly - Respiratory Exam Respiratory Exam: NORMAL BREATHING PATTERN. absent: Rales, Rhonchi, Wheezes - GI/Abdominal Exam GI & Abdominal Exam: Soft, Normal Bowel Sounds. absent: Tenderness, Mass - Rectal Exam Rectal Exam: Deferred - Extremities Exam Extremities Exam: absent: Calf Tenderness, Pedal Edema Assessment and Plan (1) Hepatic encephalopathy Assessment & Plan: Mental status continues to improve. She has developed diarrhea, which may be due to high-dose lactulose. Will reduce the lactulose to twice daily and check stool for C. difficile toxin. Status: Acute
[2018-04-13] MEDS: Pantoprazole 40 mg EC Tab PO SCH (10:33)
[2018-04-13] MEDS: Saccharomyces Boulardi 250 mg Cap PO SCH (10:33)
[2018-04-13] MEDS: Multiple Vitamins Tab PO SCH (10:33)
--- NOTE | 2018-04-13 11:19 | US ---
Abdominal ultrasound History: Right upper quadrant abdominal pain. Cirrhosis. Comparison: None available. Technique: Real-time sonography was performed through the abdomen. Findings: Abdominal ascites. Right pleural effusion. Liver: 11.7 centimeters in length. Increased echogenicity of the hepatic parenchymal cortex suggestive for fatty infiltration versus hepatic parenchymal disease. Clinical correlation. Suggestion of a nodular and cirrhotic contour of the liver. Perihepatic ascites. Gallbladder: Prior cholecystectomy. Common bile duct measures 5.2 millimeters, within normal limits. Pancreas not well visualized. Spleen is prominent measuring 17.5 x 6.4 x 6.0 centimeters. Visualized aorta and IVC are preserved. Atherosclerotic calcification and plaque within the aorta. Right kidney: 9.6 x 4.8 x 4.3 centimeters. No calculi or hydronephrosis. Left Kidney: 11.1 x 4.3 x 4.7 centimeters. No calculi or hydronephrosis. Impression: Splenomegaly. Nodular and cirrhotic contour of the liver with associated increased echogenicity of the hepatic parenchymal cortex suggestive for fatty infiltration versus hepatic parenchymal disease. Clinical correlation. Pancreas not well visualized. Prior cholecystectomy. Perihepatic and abdominal ascites. Right pleural effusion.
[2018-04-13] MEDS: Potassium & Sodium Phosphate PO SCH ×2 (14:47→17:26)
--- NOTE | 2018-04-13 16:08 | CP.PCM.PN ---
Subjective - Date & Time of Evaluation Date of Evaluation: 04/13/18 Time of Evaluation: 10:40 - Subjective Subjective: clinically same Objective - Vital Signs/Intake and Output Vital Signs (last 24 hours): Temp Pulse Resp BP Pulse Ox 98.2 F 76 20 108/60 99 04/13/18 07:00 04/13/18 07:00 04/13/18 07:00 04/13/18 10:35 04/13/18 07:00 Intake and Output: 04/13/18 04/13/18 06:59 18:59 Intake Total 480 400 Balance 480 400 - Medications Medications: Current Medications Albuterol/Ipratropium (Duoneb 3 Mg/0.5 Mg (3 Ml) Ud) 3 ml IH RQ6 [facility] Last Admin: 04/13/18 13:27 Dose: Not Given Ferrous Sulfate (Feosol) 325 mg PO DAILY [facility] Last Admin: 04/13/18 10:33 Dose: 325 mg Folic Acid (Folic Acid) 1 mg PO DAILY [facility] Last Admin: 04/13/18 10:33 Dose: 1 mg Furosemide (Lasix) 40 mg PO DAILY [facility] Last Admin: 04/13/18 10:35 Dose: 40 mg Cefepime HCl 1 gm/ Dextrose 50 mls @ 100 mls/hr IVPB Q12H [facility] PRN Reason: Protocol Last Admin: 04/13/18 06:07 Dose: 100 mls/hr Insulin Aspart (Novolog) 0 unit SC ACHS [facility] PRN Reason: Protocol Lactulose (Enulose) 20 gm PO BID [facility] Last Admin: 04/13/18 10:33 Dose: 20 gm Multivitamins (Hexavitamin) 1 tab PO DAILY [facility] Last Admin: 04/13/18 10:33 Dose: 1 tab Mupirocin (Bactroban Ointment) 22 gm EXT BID [facility] Last Admin: 04/13/18 10:37 Dose: 1 applic Pantoprazole Sodium (Protonix Ec Tab) 40 mg PO DAILY [facility] Last Admin: 04/13/18 10:33 Dose: 40 mg Potassium Phos/Sodium Phos (Neutra-Phos) 1 pkt PO TIDCC REPL[facility] Last Admin: 04/13/18 14:47 Dose: 1 pkt Propranolol HCl (Inderal) 10 mg PO Q12 [facility] Last Admin: 04/13/18 10:36 Dose: 10 mg Rifaximin (Xifaxan) 550 mg PO BID [facility] PRN Reason: Protocol Last Admin: 04/13/18 10:36 Dose: 550 mg Saccharomyces Boulardii (Florastor) 250 mg PO DAILY [facility] Last Admin: 04/13/18 10:33 Dose: 250 mg Tramadol HCl (Ultram) 50 mg PO Q6 PRN PRN Reason: pain - Labs Labs: 04/12/18 06:36 04/13/18 07:28 PT 20.8 SECONDS (9.7-12.2) H 04/11/18 10:53 INR 1.9 04/11/18 10:53 APTT 42 SECONDS (21-34) H 04/10/18 17:03 - Constitutional Appears: Well - Head Exam Head Exam: ATRAUMATIC, NORMAL INSPECTION, NORMOCEPHALIC - Eye Exam Eye Exam: EOMI, Normal appearance, PERRL Pupil Exam: NORMAL ACCOMODATION, PERRL - ENT Exam ENT Exam: Mucous Membranes Moist, Normal Exam - Neck Exam Neck Exam: Full ROM, Normal Inspection. absent: Lymphadenopathy - Respiratory Exam Respiratory Exam: Decreased Breath Sounds - Cardiovascular Exam Cardiovascular Exam: REGULAR RHYTHM, +S1, +S2 - GI/Abdominal Exam GI & Abdominal Exam: Soft, Diminished Bowel Sounds - Rectal Exam Rectal Exam: Deferred
[2018-04-14] MEDS: Albuterol-Ipratrop 3 mg / 0.5 (3 ml) UD IH SCH ×4 (01:53→19:44)
[2018-04-14] MEDS: (Novolog) Insulin Aspart, Recombinant 100 u/ml 10 ml vial SC SCH ×4 (06:55→23:00)
--- NOTE | 2018-04-14 09:45 | CP.PCM.PN ---
<Samantha Farias - Last Filed: 04/14/18 13:25> Subjective - Date & Time of Evaluation Date of Evaluation: 04/14/18 Time of Evaluation: 09:42 - Subjective Subjective: PGY2 progress note for Dr. Coronado 72 year old female with past medical history of liver cirrrhosis 2/2 chronic Hep C infection, hepatic encephalopathy presented from [facility] for worsening AMS. On admission, pt was noted to have high ammonia level and was starte don lactulose. Since admission, mental status has improved. Pt is answering questions spontaneously but is A&Ox 1 to only person. Currently denies having any CP, SOB, abd pain, N/V/D/C, F/C. Objective - Vital Signs/Intake and Output Vital Signs (last 24 hours): Temp Pulse Resp BP Pulse Ox 97.6 F 76 18 155/77 H 95 04/14/18 09:06 04/14/18 09:06 04/14/18 09:06 04/14/18 09:06 04/14/18 09:06 Intake and Output: 04/14/18 04/14/18 06:59 18:59 Intake Total 800 Balance 800 - Medications Medications: Current Medications Albuterol/Ipratropium (Duoneb 3 Mg/0.5 Mg (3 Ml) Ud) 3 ml IH RQ6 [facility] Last Admin: 04/14/18 07:12 Dose: Not Given Ferrous Sulfate (Feosol) 325 mg PO DAILY [facility] Last Admin: 04/13/18 10:33 Dose: 325 mg Folic Acid (Folic Acid) 1 mg PO DAILY [facility] Last Admin: 04/13/18 10:33 Dose: 1 mg Furosemide (Lasix) 40 mg PO DAILY [facility] Last Admin: 04/13/18 10:35 Dose: 40 mg Insulin Aspart (Novolog) 0 unit SC ACHS [facility] PRN Reason: Protocol Last Admin: 04/14/18 06:55 Dose: 10 unit Lactulose (Enulose) 20 gm PO BID [facility] Last Admin: 04/13/18 17:25 Dose: 20 gm Multivitamins (Hexavitamin) 1 tab PO DAILY [facility] Last Admin: 04/13/18 10:33 Dose: 1 tab Mupirocin (Bactroban Ointment) 22 gm EXT BID [facility] Last Admin: 04/13/18 17:26 Dose: 1 applic Pantoprazole Sodium (Protonix Ec Tab) 40 mg PO DAILY [facility] Last Admin: 04/13/18 10:33 Dose: 40 mg Potassium Phos/Sodium Phos (Neutra-Phos) 1 pkt PO TIDCC [facility] Last Admin: 04/13/18 17:26 Dose: 1 pkt Propranolol HCl (Inderal) 10 mg PO Q12 [facility] Last Admin: 04/13/18 22:05 Dose: 10 mg Rifaximin (Xifaxan) 550 mg PO BID [facility] PRN Reason: Protocol Last Admin: 04/13/18 17:26 Dose: 550 mg Saccharomyces Boulardii (Florastor) 250 mg PO DAILY [facility] Last Admin: 04/13/18 10:33 Dose: 250 mg Tramadol HCl (Ultram) 50 mg PO Q6 PRN PRN Reason: pain Last Admin: 04/13/18 18:26 Dose: 50 mg - Labs Labs: 04/12/18 06:36 04/13/18 07:28 PT 20.8 SECONDS (9.7-12.2) H 04/11/18 10:53 INR 1.9 04/11/18 10:53 APTT 42 SECONDS (21-34) H 04/10/18 17:03 - Constitutional Appears: Non-toxic, No Acute Distress - Head Exam Head Exam: ATRAUMATIC - ENT Exam ENT Exam: Mucous Membranes Moist - Respiratory Exam Respiratory Exam: Clear to Ausculation Bilateral. absent: Accessory Muscle Use , Rales, Rhonchi, Wheezes, Respiratory Distress - Cardiovascular Exam Cardiovascular Exam: REGULAR RHYTHM, +S1, +S2. absent: Gallop, Rubs, Murmur - GI/Abdominal Exam GI & Abdominal Exam: Soft, Normal Bowel Sounds. absent: Distended, Firm, Guarding, Rigid, Tenderness, Organomegaly - Neurological Exam Neurological Exam: Alert, Awake. absent: Oriented x3 - Psychiatric Exam Psychiatric exam: Normal Affect, Normal Mood - Skin Skin Exam: Dry, Intact, Normal Color, Warm Assessment and Plan - Assessment and Plan (Free Text) Assessment: 72 year old female with past medical history of cirrhosis with protal HTN, pancytopenia due to cirrohsis and hypersplenism is admitted for panctopenia Encephalopathic - Ammonia level on admissin was 63 and improved to 25 - Currently on lactulose 20 mg po bid with titirating to 2-3 BMs per day - Blood and urine cultures negative on admisison Cirrhosis - GI, Dr. Lazo is consulted - Continue Lasixs 40 mg po qd, rifaximin - Currently on propanolol - Pt afebrile overnight - Continue folic acid, multivit - MELD score of 20 with 19.6% 3 month mortality Pancytopenia - Likely due to cirrhosis complication. - Will continue to monitor and transfuse platelets if necessary. - continue feosol Hematuria - On admission, pt noted to have mild hematuria with 17 WBC. Will continue to monitor - urine culture was negative form admission DM - hgbA1c from 11/2017 was 7.9 - Continue ISS - Accuchecks prn - Hypoglycemic protocol - Will repeat Hgba1c and check lipid panel and TSH Prophylaxis - lovenox 30 sc - held due to hematuria and thrombocytopenia - no indications for gi prophylaxis Case discussed with attending. All medical management as per Dr. Juana Coronado. <Nancy Coronado S - Last Filed: 04/14/18 23:42> Objective - Vital Signs/Intake and Output Vital Signs (last 24 hours): Temp Pulse Resp BP Pulse Ox 97.6 F 81 20 113/70 96 04/14/18 15:00 04/14/18 15:00 04/14/18 15:00 04/14/18 15:00 04/14/18 15:00 - Medications Medications: Current Medications Albuterol/Ipratropium (Duoneb 3 Mg/0.5 Mg (3 Ml) Ud) 3 ml IH RQ6 [facility] Last Admin: 04/14/18 19:44 Dose: Not Given Dextrose (Dextrose 50% Inj) 0 ml IV STAT PRN; Protocol PRN Reason: Hypoglycemia Protocol Dextrose (Glutose 15) 0 gm PO ONCE PRN; Protocol PRN Reason: Hypoglycemia Protocol Ferrous Sulfate (Feosol) 325 mg PO DAILY [facility] Last Admin: 04/14/18 11:11 Dose: 325 mg Folic Acid (Folic Acid) 1 mg PO DAILY [facility] Last Admin: 04/14/18 11:07 Dose: 1 mg Furosemide (Lasix) 40 mg PO DAILY [facility] Last Admin: 04/14/18 11:09 Dose: 40 mg Glucagon (Glucagen Diagnostic Kit) 0 mg IM STAT PRN; Protocol PRN Reason: Hypoglycemia Protocol Dextrose (Dextrose 5% In Water 1000 Ml) 1,000 mls @ 0 mls/hr IV .Q0M PRN; Protocol; Per Protocol PRN Reason: Hypoglycemia Protocol Insulin Aspart (Novolog) 0 unit SC ACHS [facility] PRN Reason: Protocol Last Admin: 04/14/18 23:00 Dose: 3 unit Lactulose (Enulose) 20 gm PO BID [facility] Last Admin: 04/14/18 18:22 Dose: 20 gm Multivitamins (Hexavitamin) 1 tab PO DAILY [facility] Last Admin: 04/14/18 11:09 Dose: 1 tab Mupirocin (Bactroban Ointment) 22 gm EXT BID [facility] Last Admin: 04/14/18 18:30 Dose: 1 applic Potassium Phos/Sodium Phos (Neutra-Phos) 1 pkt PO TIDCC [facility] Last Admin: 04/14/18 18:00 Dose: 1 pkt Propranolol HCl (Inderal) 10 mg PO Q12 [facility] Last Admin: 04/14/18 23:00 Dose: 10 mg Saccharomyces Boulardii (Florastor) 250 mg PO DAILY [facility] Last Admin: 04/14/18 11:07 Dose: 250 mg Tramadol HCl (Ultram) 50 mg PO Q6 PRN PRN Reason: pain Last Admin: 04/13/18 18:26 Dose: 50 mg - Labs Labs: 04/12/18 06:36 04/14/18 11:37 PT 20.8 SECONDS (9.7-12.2) H 04/11/18 10:53 INR 1.9 04/11/18 10:53 APTT 42 SECONDS (21-34) H 04/10/18 17:03 Attending/Attestation - Attestation I have personally seen and examined this patient.: Yes I have fully participated in the care of the patient.: Yes I have reviewed all pertinent clinical information, including history, physical exam and plan: Yes Notes (Text): 04/14/18 23:42 case seen and d.w staff and resident, concurred with finding and management..
[2018-04-14] MEDS ORDERED: Dextrose 50% SYRINGE Inj (50 ml) IV PRN (10:01)
[2018-04-14] MEDS ORDERED: Glucagon Recombinant 1 mg Inj IM PRN (10:01)
[2018-04-14] MEDS: Saccharomyces Boulardi 250 mg Cap PO SCH (11:07)
[2018-04-14] MEDS: Potassium & Sodium Phosphate PO SCH ×3 (11:08→18:00)
[2018-04-14] MEDS: Multiple Vitamins Tab PO SCH (11:09)
[2018-04-14 12:09] LABS: ALB/GLOB RATIO 0.7 (1.0-2.1); ALBUMIN 2.2 g/dL (3.5-5.0); ALT/SGPT 43 U/L (9-52); AST/SGOT 83 U/L (14-36); BLOOD UREA NITROGEN 11 mg/dL (7-17); CALCIUM 8.3 mg/dl (8.6-10.4); GFR AFRICAN-AMERICAN > 60; GFR NON-AFRICAN AMERICAN > 60
--- NOTE | 2018-04-14 15:58 | CP.PCM.PN ---
Subjective - Date & Time of Evaluation Date of Evaluation: 04/14/18 Time of Evaluation: 15:56 - Subjective Subjective: CC: cirrhosis/encephalopathy Alert and talking to me Less diarrhea on decreased Lactulose Objective - Vital Signs/Intake and Output Vital Signs (last 24 hours): Temp Pulse Resp BP Pulse Ox 97.6 F 76 18 110/56 L 95 04/14/18 09:06 04/14/18 09:06 04/14/18 09:06 04/14/18 11:09 04/14/18 09:06 Intake and Output: 04/14/18 04/14/18 06:59 18:59 Intake Total 800 Balance 800 - Medications Medications: Current Medications Albuterol/Ipratropium (Duoneb 3 Mg/0.5 Mg (3 Ml) Ud) 3 ml IH RQ6 [facility] Last Admin: 04/14/18 13:26 Dose: Not Given Dextrose (Dextrose 50% Inj) 0 ml IV STAT PRN; Protocol PRN Reason: Hypoglycemia Protocol Dextrose (Glutose 15) 0 gm PO ONCE PRN; Protocol PRN Reason: Hypoglycemia Protocol Ferrous Sulfate (Feosol) 325 mg PO DAILY [facility] Last Admin: 04/14/18 11:11 Dose: 325 mg Folic Acid (Folic Acid) 1 mg PO DAILY [facility] Last Admin: 04/14/18 11:07 Dose: 1 mg Furosemide (Lasix) 40 mg PO DAILY [facility] Last Admin: 04/14/18 11:09 Dose: 40 mg Glucagon (Glucagen Diagnostic Kit) 0 mg IM STAT PRN; Protocol PRN Reason: Hypoglycemia Protocol Dextrose (Dextrose 5% In Water 1000 Ml) 1,000 mls @ 0 mls/hr IV .Q0M PRN; Protocol; Per Protocol PRN Reason: Hypoglycemia Protocol Insulin Aspart (Novolog) 0 unit SC ACHS [facility] PRN Reason: Protocol Last Admin: 04/14/18 12:59 Dose: 8 unit Lactulose (Enulose) 20 gm PO BID [facility] Last Admin: 04/14/18 11:11 Dose: 20 gm Multivitamins (Hexavitamin) 1 tab PO DAILY [facility] Last Admin: 04/14/18 11:09 Dose: 1 tab Mupirocin (Bactroban Ointment) 22 gm EXT BID [facility] Last Admin: 04/13/18 17:26 Dose: 1 applic Potassium Phos/Sodium Phos (Neutra-Phos) 1 pkt PO TIDCC [facility] Last Admin: 04/14/18 13:20 Dose: 1 pkt Propranolol HCl (Inderal) 10 mg PO Q12 [facility] Last Admin: 04/14/18 11:08 Dose: 10 mg Saccharomyces Boulardii (Florastor) 250 mg PO DAILY [facility] Last Admin: 04/14/18 11:07 Dose: 250 mg Tramadol HCl (Ultram) 50 mg PO Q6 PRN PRN Reason: pain Last Admin: 04/13/18 18:26 Dose: 50 mg - Labs Labs: 04/12/18 06:36 04/14/18 11:37 PT 20.8 SECONDS (9.7-12.2) H 04/11/18 10:53 INR 1.9 04/11/18 10:53 APTT 42 SECONDS (21-34) H 04/10/18 17:03 - Constitutional Appears: Confused - Head Exam Head Exam: NORMAL INSPECTION - Eye Exam Eye Exam: Scleral icterus - Respiratory Exam Respiratory Exam: NORMAL BREATHING PATTERN - Cardiovascular Exam Cardiovascular Exam: REGULAR RHYTHM - GI/Abdominal Exam GI & Abdominal Exam: Soft. absent: Tenderness Assessment and Plan (1) Hepatic encephalopathy Assessment & Plan: Improved intermodal customer service Lactulose needed Status: Acute (2) Pneumonia Status: Acute (3) Pancytopenia Assessment & Plan: chronic Status: Acute (4) Cirrhosis Assessment & Plan: Discussed eventual transplant but patient not willing to do it goal is [facility] surveillance and prevention of cirrhotic complications Status: Chronic
--- NOTE | 2018-04-14 19:28 | CP.PCM.PN ---
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 On admission, pt was noted to have high ammonia level and was starte don lactulose. Since admission, mental status has improved. Pt is answering questions spontaneously but is A&Ox 1 to only person. Currently denies having any CP, SOB, abd pain, N/V/D/C, F/C. Objective - Vital Signs/Intake and Output Vital Signs (last 24 hours): Temp Pulse Resp BP Pulse Ox 97.6 F 81 20 113/70 96 04/14/18 15:00 04/14/18 15:00 04/14/18 15:00 04/14/18 15:00 04/14/18 15:00 - Medications Medications: Current Medications Albuterol/Ipratropium (Duoneb 3 Mg/0.5 Mg (3 Ml) Ud) 3 ml IH RQ6 [facility] Last Admin: 04/14/18 13:26 Dose: Not Given Dextrose (Dextrose 50% Inj) 0 ml IV STAT PRN; Protocol PRN Reason: Hypoglycemia Protocol Dextrose (Glutose 15) 0 gm PO ONCE PRN; Protocol PRN Reason: Hypoglycemia Protocol Ferrous Sulfate (Feosol) 325 mg PO DAILY [facility] Last Admin: 04/14/18 11:11 Dose: 325 mg Folic Acid (Folic Acid) 1 mg PO DAILY [facility] Last Admin: 04/14/18 11:07 Dose: 1 mg Furosemide (Lasix) 40 mg PO DAILY [facility] Last Admin: 04/14/18 11:09 Dose: 40 mg Glucagon (Glucagen Diagnostic Kit) 0 mg IM STAT PRN; Protocol PRN Reason: Hypoglycemia Protocol Dextrose (Dextrose 5% In Water 1000 Ml) 1,000 mls @ 0 mls/hr IV .Q0M PRN; Protocol; Per Protocol PRN Reason: Hypoglycemia Protocol Insulin Aspart (Novolog) 0 unit SC ACHS [facility] PRN Reason: Protocol Last Admin: 04/14/18 17:45 Dose: 8 unit Lactulose (Enulose) 20 gm PO BID [facility] Last Admin: 04/14/18 18:22 Dose: 20 gm Multivitamins (Hexavitamin) 1 tab PO DAILY [facility] Last Admin: 04/14/18 11:09 Dose: 1 tab Mupirocin (Bactroban Ointment) 22 gm EXT BID [facility] Last Admin: 04/14/18 18:30 Dose: 1 applic Potassium Phos/Sodium Phos (Neutra-Phos) 1 pkt PO TIDCC [facility] Last Admin: 04/14/18 18:00 Dose: 1 pkt Propranolol HCl (Inderal) 10 mg PO Q12 [facility] Last Admin: 04/14/18 11:08 Dose: 10 mg Saccharomyces Boulardii (Florastor) 250 mg PO DAILY [facility] Last Admin: 04/14/18 11:07 Dose: 250 mg Tramadol HCl (Ultram) 50 mg PO Q6 PRN PRN Reason: pain Last Admin: 04/13/18 18:26 Dose: 50 mg - Labs Labs: 04/12/18 06:36 04/14/18 11:37 PT 20.8 SECONDS (9.7-12.2) H 04/11/18 10:53 INR 1.9 04/11/18 10:53 APTT 42 SECONDS (21-34) H 04/10/18 17:03 - Constitutional Appears: Well - Head Exam Head Exam: ATRAUMATIC, NORMAL INSPECTION, NORMOCEPHALIC - Eye Exam Eye Exam: EOMI, Normal appearance, PERRL Pupil Exam: NORMAL ACCOMODATION, PERRL - ENT Exam ENT Exam: Mucous Membranes Moist, Normal Exam - Neck Exam Neck Exam: Full ROM, Normal Inspection. absent: Lymphadenopathy - Respiratory Exam Respiratory Exam: Decreased Breath Sounds - Cardiovascular Exam Cardiovascular Exam: REGULAR RHYTHM, +S1, +S2 - GI/Abdominal Exam GI & Abdominal Exam: Soft, Diminished Bowel Sounds - Rectal Exam Rectal Exam: Deferred Assessment and Plan - Assessment and Plan (Free Text) Plan: 72 year old female with past medical history of cirrhosis with protal HTN, pancytopenia due to cirrohsis and hypersplenism is admitted for panctopenia Encephalopathic - Ammonia level on admissin was 63 and improved to 25 - Currently on lactulose 20 mg po bid with titirating to 2-3 BMs per day - Blood and urine cultures negative on admisison Cirrhosis - GI, Dr. Lazo is consulted - Continue Lasixs 40 mg po qd, rifaximin - Currently on propanolol - Pt afebrile overnight - Continue folic acid, multivit - MELD score of 20 with 19.6% 3 month mortality Pancytopenia - Likely due to cirrhosis complication. - Will continue to monitor and transfuse platelets if necessary. - continue feosol Hematuria - On admission, pt noted to have mild hematuria with 17 WBC. Will continue to monitor - urine culture was negative form admission DM - hgbA1c from 11/2017 was 7.9 - Continue ISS - Accuchecks prn - Hypoglycemic protocol - Will repeat Hgba1c and check lipid panel and TSH Prophylaxis - lovenox 30 sc - held due to hematuria and thrombocytopenia - no indications for gi prophylaxis
[2018-04-15] MEDS: Albuterol-Ipratrop 3 mg / 0.5 (3 ml) UD IH SCH ×4 (02:16→19:40)
[2018-04-15 08:06] LABS: BASO % 0.4 % (0.0-2.0); EOS % 1.2 % (0.0-4.0); HEMOGLOBIN 8.8 g/dL (11.0-16.0); LYMPH # 0.3 K/uL (1.0-4.3); LYMPH % 29.7 % (20.0-40.0); MEAN CELL VOLUME 98.9 fL (81.0-99.0); MEAN CORPUSCULAR HEMOGLOBIN 34.9 pg (27.0-31.0); MEAN CORPUSCULAR HGB CONC 35.3 g/dL (33.0-37.0); MEAN PLATELET VOLUME 10.5 fL (7.2-11.7); MONO # 0.1 K/uL (0.0-0.8); MONO % 5.2 % (0.0-10.0); NEUT # 0.7 K/uL (1.8-7.0); NEUT % 63.5 % (50.0-75.0); NRBC % 0.3 % (0.0-2.0); RBC 2.53 Mil/uL (3.80-5.20); RED CELL DISTRIBUTION WIDTH 16.3 % (11.5-14.5)
[2018-04-15 08:12] LABS: WHITE BLOOD COUNT 1.1 K/uL (4.8-10.8)
[2018-04-15 08:23] LABS: ALB/GLOB RATIO 0.6 (1.0-2.1); ALBUMIN 2.1 g/dL (3.5-5.0); ALT/SGPT 33 U/L (9-52); AST/SGOT 77 U/L (14-36); BLOOD UREA NITROGEN 9 mg/dL (7-17); CALCIUM 8.2 mg/dl (8.6-10.4); GFR AFRICAN-AMERICAN > 60; GFR NON-AFRICAN AMERICAN > 60; HDL CHOLESTEROL 24 mg/dL (30-70)
[2018-04-15] MEDS: (Novolog) Insulin Aspart, Recombinant 100 u/ml 10 ml vial SC SCH ×3 (08:30→18:07)
[2018-04-15 08:33] LABS: LDL CHOLESTEROL 39 mg/dL (0-129)
--- NOTE | 2018-04-15 08:58 | CP.PCM.PN ---
Subjective - Date & Time of Evaluation Date of Evaluation: 04/15/18 Time of Evaluation: 08:00 - Subjective Subjective: cirrhosis F/U Confused. No report of abdom pain, RB, melena, vomiting, hematuria, hemoptysis, SZ Objective - Vital Signs/Intake and Output Vital Signs (last 24 hours): Temp Pulse Resp BP Pulse Ox 98.1 F 85 97 H 106/53 L 97 04/15/18 07:00 04/15/18 07:00 04/15/18 07:00 04/15/18 07:00 04/15/18 07:00 Intake and Output: 04/15/18 04/15/18 06:59 18:59 Intake Total 360 Balance 360 - Medications Medications: Current Medications Albuterol/Ipratropium (Duoneb 3 Mg/0.5 Mg (3 Ml) Ud) 3 ml IH RQ6 [facility] Last Admin: 04/15/18 07:20 Dose: Not Given Dextrose (Dextrose 50% Inj) 0 ml IV STAT PRN; Protocol PRN Reason: Hypoglycemia Protocol Dextrose (Glutose 15) 0 gm PO ONCE PRN; Protocol PRN Reason: Hypoglycemia Protocol Ferrous Sulfate (Feosol) 325 mg PO DAILY [facility] Last Admin: 04/14/18 11:11 Dose: 325 mg Folic Acid (Folic Acid) 1 mg PO DAILY [facility] Last Admin: 04/14/18 11:07 Dose: 1 mg Furosemide (Lasix) 40 mg PO DAILY [facility] Last Admin: 04/14/18 11:09 Dose: 40 mg Glucagon (Glucagen Diagnostic Kit) 0 mg IM STAT PRN; Protocol PRN Reason: Hypoglycemia Protocol Dextrose (Dextrose 5% In Water 1000 Ml) 1,000 mls @ 0 mls/hr IV .Q0M PRN; Protocol; Per Protocol PRN Reason: Hypoglycemia Protocol Insulin Aspart (Novolog) 0 unit SC ACHS [facility] PRN Reason: Protocol Insulin Glargine (Lantus) 8 unit SC Q12 [facility] Lactulose (Enulose) 20 gm PO TID [facility] Multivitamins (Hexavitamin) 1 tab PO DAILY [facility] Last Admin: 04/14/18 11:09 Dose: 1 tab Mupirocin (Bactroban Ointment) 22 gm EXT BID [facility] Last Admin: 04/14/18 18:30 Dose: 1 applic Potassium Phos/Sodium Phos (Neutra-Phos) 1 pkt PO TIDCC [facility] Last Admin: 04/14/18 18:00 Dose: 1 pkt Propranolol HCl (Inderal) 10 mg PO Q12 [facility] Last Admin: 04/14/18 23:00 Dose: 10 mg Saccharomyces Boulardii (Florastor) 250 mg PO DAILY [facility] Last Admin: 04/14/18 11:07 Dose: 250 mg Thiamine HCl (Vitamin B1 Tab) 100 mg PO BID [facility] Tramadol HCl (Ultram) 50 mg PO Q6 PRN PRN Reason: pain Last Admin: 04/13/18 18:26 Dose: 50 mg - Labs Labs: 04/15/18 07:54 04/15/18 07:54 PT 20.8 SECONDS (9.7-12.2) H 04/11/18 10:53 INR 1.9 04/11/18 10:53 APTT 42 SECONDS (21-34) H 04/10/18 17:03 - Constitutional Appears: Non-toxic - Respiratory Exam Respiratory Exam: Clear to Ausculation Bilateral - Cardiovascular Exam Cardiovascular Exam: RRR - GI/Abdominal Exam GI & Abdominal Exam: Soft, Normal Bowel Sounds. absent: Tenderness - Neurological Exam Neurological Exam: Alert. absent: Oriented x3 Assessment and Plan (1) Hepatic encephalopathy Assessment & Plan: Cont meds. Check NH3 Status: Acute (2) Anemia Status: Acute (3) HCV (hepatitis C virus) Status: Acute (4) HTN (hypertension) Status: Acute (5) Pancytopenia Status: Acute (6) Cirrhosis Status: Chronic
[2018-04-15] MEDS: Potassium & Sodium Phosphate PO SCH ×3 (09:00→18:11)
[2018-04-15] MEDS ORDERED: (Lantus) Insulin Glargine, Recombinant SC SCH (10:00)
--- NOTE | 2018-04-15 10:17 | CP.PCM.PN ---
Subjective - Date & Time of Evaluation Date of Evaluation: 04/15/18 Time of Evaluation: 10:22 - Subjective Subjective: PGY2 Medicine note for Dr. Juana Coronado; all management as per Dr. Juana Coronado patient seen and examined at bedside this AM; she is in good spirits with no complaints today; denies any fevers/chills, GARCIA, CP, SOB, abdominal pain, N/V/D, dysuria/freq/urg or lower extremity pain/swelling. She is still somewhat altered does not know the date or where we are. Ammonia has not been checked today; ordered. Objective - Vital Signs/Intake and Output Vital Signs (last 24 hours): Temp Pulse Resp BP Pulse Ox 98.1 F 85 97 H 106/53 L 97 04/15/18 07:00 04/15/18 07:00 04/15/18 07:00 04/15/18 07:00 04/15/18 07:00 Intake and Output: 04/15/18 04/15/18 06:59 18:59 Intake Total 360 Balance 360 - Medications Medications: Current Medications Albuterol/Ipratropium (Duoneb 3 Mg/0.5 Mg (3 Ml) Ud) 3 ml IH RQ6 [facility] Last Admin: 04/15/18 07:20 Dose: Not Given Dextrose (Dextrose 50% Inj) 0 ml IV STAT PRN; Protocol PRN Reason: Hypoglycemia Protocol Dextrose (Glutose 15) 0 gm PO ONCE PRN; Protocol PRN Reason: Hypoglycemia Protocol Ferrous Sulfate (Feosol) 325 mg PO DAILY [facility] Last Admin: 04/14/18 11:11 Dose: 325 mg Folic Acid (Folic Acid) 1 mg PO DAILY [facility] Last Admin: 04/14/18 11:07 Dose: 1 mg Furosemide (Lasix) 40 mg PO DAILY [facility] Last Admin: 04/14/18 11:09 Dose: 40 mg Glucagon (Glucagen Diagnostic Kit) 0 mg IM STAT PRN; Protocol PRN Reason: Hypoglycemia Protocol Dextrose (Dextrose 5% In Water 1000 Ml) 1,000 mls @ 0 mls/hr IV .Q0M PRN; Protocol; Per Protocol PRN Reason: Hypoglycemia Protocol Insulin Aspart (Novolog) 0 unit SC ACHS [facility] PRN Reason: Protocol Last Admin: 04/15/18 08:30 Dose: 8 unit Insulin Glargine (Lantus) 8 unit SC Q12 [facility] Lactulose (Enulose) 20 gm PO TID [facility] Multivitamins (Hexavitamin) 1 tab PO DAILY [facility] Last Admin: 04/14/18 11:09 Dose: 1 tab Mupirocin (Bactroban Ointment) 22 gm EXT BID [facility] Last Admin: 04/14/18 18:30 Dose: 1 applic Potassium Phos/Sodium Phos (Neutra-Phos) 1 pkt PO TIDCC [facility] Last Admin: 04/15/18 09:00 Dose: 1 pkt Propranolol HCl (Inderal) 10 mg PO Q12 [facility] Last Admin: 04/14/18 23:00 Dose: 10 mg Saccharomyces Boulardii (Florastor) 250 mg PO DAILY [facility] Last Admin: 04/14/18 11:07 Dose: 250 mg Thiamine HCl (Vitamin B1 Tab) 100 mg PO BID [facility] Tramadol HCl (Ultram) 50 mg PO Q6 PRN PRN Reason: pain Last Admin: 04/13/18 18:26 Dose: 50 mg - Labs Labs: 04/15/18 07:54 04/15/18 07:54 PT 20.8 SECONDS (9.7-12.2) H 04/11/18 10:53 INR 1.9 04/11/18 10:53 APTT 42 SECONDS (21-34) H 04/10/18 17:03 Assessment and Plan - Assessment and Plan (Free Text) Assessment: Appears: Non-toxic, No Acute Distress - Head Exam Head Exam: ATRAUMATIC - ENT Exam ENT Exam: Mucous Membranes Moist - Respiratory Exam Respiratory Exam: Clear to Ausculation Bilateral. absent: Accessory Muscle Use , Rales, Rhonchi, Wheezes, Respiratory Distress - Cardiovascular Exam Cardiovascular Exam: REGULAR RHYTHM, +S1, +S2. absent: Gallop, Rubs, Murmur - GI/Abdominal Exam GI & Abdominal Exam: Soft, Normal Bowel Sounds. absent: Distended, Firm, Guarding, Rigid, Tenderness, Organomegaly - Neurological Exam Neurological Exam: Alert, Awake. absent: Oriented x3 - Psychiatric Exam Psychiatric exam: Normal Affect, Normal Mood - Skin Skin Exam: Dry, Intact, Normal Color, Warm Assessment and Plan - Assessment and Plan (Free Text) Assessment: 72 year old female with past medical history of cirrhosis with protal HTN, pancytopenia due to cirrohsis and hypersplenism is admitted for panctopenia Encephalopathic - Ammonia level on admissin was 63; will check daily - Currently on lactulose 20 mg po TID with titirating to 2-3 BMs per day - Blood and urine cultures negative on admisison Cirrhosis - GI, Dr. Lazo is consulted - Continue Lasixs 20 mg po qd, rifaximin - Currently on propanolol - Pt afebrile overnight - Continue folic acid, multivit - MELD score of 20 with 19.6% 3 month mortality Pancytopenia - Likely due to cirrhosis complication. - Will continue to monitor and transfuse platelets if necessary. - continue feosol Hematuria; resolved - On admission, pt noted to have mild hematuria with 17 WBC. Will continue to monitor - urine culture was negative form admission DM - hgbA1c from 11/2017 was 7.9 - Continue ISS - Accuchecks prn - Hypoglycemic protocol - Will repeat Hgba1c and check lipid panel and TSH Prophylaxis - lovenox 30 sc - held due to hematuria and thrombocytopenia -will add scd - no indications for gi prophylaxis Case discussed with attending. All medical management as per Dr. Juana Coronado.
[2018-04-15] MEDS: Multiple Vitamins Tab PO SCH (11:00)
[2018-04-15] MEDS: Saccharomyces Boulardi 250 mg Cap PO SCH (11:00)
--- NOTE | 2018-04-15 15:11 | CP.PCM.PN ---
Subjective - Date & Time of Evaluation Date of Evaluation: 04/15/18 Time of Evaluation: 15:11 - Subjective Subjective: PT CLEARED FOR D/C TO [facility] TODAY PER DR. WINTERS. PT TO BE FOLLOWED BY DR. WINTERS AT [facility]. TO CONTINUE PO ABX X5 DAYS. SW TO ARRANGE TRANSPORTATION. NO FURTHER ORDERS. -PLACE UNDER THE SERVICE OF DR. Jean Marie WINTERS WHILE AT [facility]----CALL UPON ARRIVAL TO FACILITY FOR ADMITTING ORDER. -PLEASE ARRANGE FOR MRS. ANGEL TO FOLLOW UP WITH DR. TREE GLEASON AND DR. RIGGS IN THEIR OFFICES WITHIN 1 WEEK (BY 04/22/18)---CALL THE OFFICES FOR APPOINTMENT AND ARRANGE TRANSPORTATION. -CONTINUE ALL MEDICATIONS PER THE MED REC FORM---CHANGES CAN BE MADE BY DR. WINTERS. -CONTINUE ORAL ANTIBIOTICS FOR 5 DAYS PER THE MED REC. -FALL RISK PER FACILITY PROTOCOL. -PHYSICAL THERAPY TOLERATED. -FOR FURTHER ORDERS, CONTACT DR. Jean Marie WINTERS'S OFFICE. Objective - Vital Signs/Intake and Output Vital Signs (last 24 hours): Temp Pulse Resp BP Pulse Ox 98.1 F 84 18 110/60 97 04/15/18 07:00 04/15/18 10:55 04/15/18 07:00 04/15/18 11:00 04/15/18 07:00 Intake and Output: 04/15/18 04/15/18 06:59 18:59 Intake Total 360 300 Balance 360 300 - Medications Medications: Current Medications Albuterol/Ipratropium (Duoneb 3 Mg/0.5 Mg (3 Ml) Ud) 3 ml RQ6 [facility] Last Admin: 04/15/18 13:16 Dose: Not Given Dextrose (Dextrose 50% Inj) 0 ml IV STAT PRN; Protocol PRN Reason: Hypoglycemia Protocol Dextrose (Glutose 15) 0 gm PO ONCE PRN; Protocol PRN Reason: Hypoglycemia Protocol Ferrous Sulfate (Feosol) 325 mg PO DAILY [facility] Last Admin: 04/15/18 11:00 Dose: 325 mg Folic Acid (Folic Acid) 1 mg PO DAILY [facility] Last Admin: 04/15/18 11:00 Dose: 1 mg Furosemide (Lasix) 40 mg PO DAILY [facility] Last Admin: 04/15/18 11:00 Dose: 40 mg Glucagon (Glucagen Diagnostic Kit) 0 mg IM STAT PRN; Protocol PRN Reason: Hypoglycemia Protocol Dextrose (Dextrose 5% In Water 1000 Ml) 1,000 mls @ 0 mls/hr IV .Q0M PRN; Protocol; Per Protocol PRN Reason: Hypoglycemia Protocol Insulin Aspart (Novolog) 0 unit SC ACHS [facility] PRN Reason: Protocol Last Admin: 04/15/18 12:30 Dose: 8 unit Insulin Glargine (Lantus) 8 unit SC Q12 [facility] Last Admin: 04/15/18 11:00 Dose: 8 unit Lactulose (Enulose) 20 gm PO TID [facility] Last Admin: 04/15/18 14:10 Dose: 20 gm Multivitamins (Hexavitamin) 1 tab PO DAILY [facility] Last Admin: 04/15/18 11:00 Dose: 1 tab Mupirocin (Bactroban Ointment) 22 gm EXT BID [facility] Last Admin: 04/15/18 11:00 Dose: 1 applic Potassium Phos/Sodium Phos (Neutra-Phos) 1 pkt PO TIDCC [facility] Last Admin: 04/15/18 14:10 Dose: 1 pkt Propranolol HCl (Inderal) 10 mg PO Q12 [facility] Last Admin: 04/15/18 11:00 Dose: 10 mg Saccharomyces Boulardii (Florastor) 250 mg PO DAILY [facility] Last Admin: 04/15/18 11:00 Dose: 250 mg Thiamine HCl (Vitamin B1 Tab) 100 mg PO BID [facility] Last Admin: 04/15/18 11:37 Dose: 100 mg Tramadol HCl (Ultram) 50 mg PO Q6 PRN PRN Reason: pain Last Admin: 04/13/18 18:26 Dose: 50 mg - Labs Labs: 04/15/18 07:54 04/15/18 07:54 PT 20.8 SECONDS (9.7-12.2) H 04/11/18 10:53 INR 1.9 04/11/18 10:53 APTT 42 SECONDS (21-34) H 04/10/18 17:03
[2018-04-15 16:06] VITALS: BP 122/74; PULSE 83; TEMP 98.2
--- NOTE | 2018-04-15 16:40 | CP.PCM.PN ---
Subjective - Date & Time of Evaluation Date of Evaluation: 04/15/18 Time of Evaluation: 12:20 - Subjective Subjective: clinically same Objective - Vital Signs/Intake and Output Vital Signs (last 24 hours): Temp Pulse Resp BP Pulse Ox 98.2 F 83 83 H 122/74 20 L 04/15/18 15:05 04/15/18 15:05 04/15/18 15:05 04/15/18 15:05 04/15/18 15:05 Intake and Output: 04/15/18 04/15/18 06:59 18:59 Intake Total 360 300 Balance 360 300 - Medications Medications: Current Medications Albuterol/Ipratropium (Duoneb 3 Mg/0.5 Mg (3 Ml) Ud) 3 ml IH RQ6 [facility] Last Admin: 04/15/18 13:16 Dose: Not Given Dextrose (Dextrose 50% Inj) 0 ml IV STAT PRN; Protocol PRN Reason: Hypoglycemia Protocol Dextrose (Glutose 15) 0 gm PO ONCE PRN; Protocol PRN Reason: Hypoglycemia Protocol Ferrous Sulfate (Feosol) 325 mg PO DAILY [facility] Last Admin: 04/15/18 11:00 Dose: 325 mg Folic Acid (Folic Acid) 1 mg PO DAILY [facility] Last Admin: 04/15/18 11:00 Dose: 1 mg Furosemide (Lasix) 40 mg PO DAILY [facility] Last Admin: 04/15/18 11:00 Dose: 40 mg Glucagon (Glucagen Diagnostic Kit) 0 mg IM STAT PRN; Protocol PRN Reason: Hypoglycemia Protocol Dextrose (Dextrose 5% In Water 1000 Ml) 1,000 mls @ 0 mls/hr IV .Q0M PRN; Protocol; Per Protocol PRN Reason: Hypoglycemia Protocol Insulin Aspart (Novolog) 0 unit SC ACHS [facility] PRN Reason: Protocol Last Admin: 04/15/18 12:30 Dose: 8 unit Insulin Glargine (Lantus) 8 unit SC Q12 [facility] Last Admin: 04/15/18 11:00 Dose: 8 unit Lactulose (Enulose) 20 gm PO TID [facility] Last Admin: 04/15/18 14:10 Dose: 20 gm Multivitamins (Hexavitamin) 1 tab PO DAILY [facility] Last Admin: 04/15/18 11:00 Dose: 1 tab Mupirocin (Bactroban Ointment) 22 gm EXT BID [facility] Last Admin: 04/15/18 11:00 Dose: 1 applic Potassium Phos/Sodium Phos (Neutra-Phos) 1 pkt PO TIDCC [facility] Last Admin: 04/15/18 14:10 Dose: 1 pkt Propranolol HCl (Inderal) 10 mg PO Q12 [facility] Last Admin: 04/15/18 11:00 Dose: 10 mg Saccharomyces Boulardii (Florastor) 250 mg PO DAILY [facility] Last Admin: 04/15/18 11:00 Dose: 250 mg Thiamine HCl (Vitamin B1 Tab) 100 mg PO BID [facility] Last Admin: 04/15/18 11:37 Dose: 100 mg Tramadol HCl (Ultram) 50 mg PO Q6 PRN PRN Reason: pain Last Admin: 04/13/18 18:26 Dose: 50 mg - Labs Labs: 04/15/18 07:54 04/15/18 07:54 PT 20.8 SECONDS (9.7-12.2) H 04/11/18 10:53 INR 1.9 04/11/18 10:53 APTT 42 SECONDS (21-34) H 04/10/18 17:03 - Constitutional Appears: Well - Head Exam Head Exam: ATRAUMATIC, NORMAL INSPECTION, NORMOCEPHALIC - Eye Exam Eye Exam: EOMI, Normal appearance, PERRL Pupil Exam: NORMAL ACCOMODATION, PERRL - ENT Exam ENT Exam: Mucous Membranes Moist, Normal Exam - Neck Exam Neck Exam: Full ROM, Normal Inspection. absent: Lymphadenopathy - Respiratory Exam Respiratory Exam: Decreased Breath Sounds - Cardiovascular Exam Cardiovascular Exam: REGULAR RHYTHM, +S1, +S2 - GI/Abdominal Exam GI & Abdominal Exam: Soft, Diminished Bowel Sounds - Rectal Exam Rectal Exam: Deferred
--- NOTE | 2018-04-15 17:33 | CP.PCM.CON ---
Past Patient History - Infectious Disease Hx of Infectious Diseases: None - Past Medical History & Family History Past Medical History?: Yes - Past Social History Smoking Status: Former Smoker - CARDIAC Hx Cardiac Disorders: Yes Hx Hypertension: Yes - PULMONARY Hx Respiratory Disorders: Yes Hx Asthma: Yes Hx Bronchitis: Yes - NEUROLOGICAL Hx Neurological Disorder: Yes Other/Comment: SEVERE NEUROPATHY, hepatic encephalopathy. subdural hematoma - HEENT Hx HEENT Problems: Yes Other/Comment: Dimished vision bilateral - RENAL Hx Chronic Kidney Disease: No - ENDOCRINE/METABOLIC Hx Diabetes Mellitus Type 1: Yes Hx Diabetes Mellitus Type 2: Yes - HEMATOLOGICAL/ONCOLOGICAL Hx Blood Disorders: Yes Hx Anemia: Yes (with Pancytopenia) - INTEGUMENTARY Hx Dermatological Problems: Yes Hx Psoriasis: Yes - MUSCULOSKELETAL/RHEUMATOLOGICAL Hx Arthritis: Yes (L KNEE SEVERE OA) - GASTROINTESTINAL Hx Gastrointestinal Disorders: Yes Hx Crohn's Disease: Yes Hx Diverticulitis: Yes Hx Gall Bladder Disease: Yes Hx Gastritis: Yes - GENITOURINARY/GYNECOLOGICAL Hx Genitourinary Disorders: No - PSYCHIATRIC Hx Psychophysiologic Disorder: Yes Hx Anxiety: Yes Hx Depression: Yes Hx Substance Use: No - SURGICAL HISTORY Hx Surgeries: Yes Hx Appendectomy: Yes Hx Cholecystectomy: Yes - ANESTHESIA Hx Anesthesia: Yes Hx Anesthesia Reactions: No Hx Malignant Hyperthermia: No Meds Home Medications: Home Medication List Medication Instructions Recorded Confirmed Type Azithromycin [Zithromax] 500 mg PO DAILY 5 Days tab 04/15/18 Rx Insulin Aspart, Recombinant 0 unit SC ACHS unit 04/15/18 Rx [Novolog] Insulin Glargine, Recombina 8 unit SC Q12 unit 04/15/18 Rx [Lantus] Lactulose [Enulose] 20 gm PO TID udc 04/15/18 Rx Pantoprazole [Protonix EC Tab] 40 mg PO DAILY ect 04/15/18 Rx Phosphorus/Potassium/Sodium 1 pkt PO TIDCC packet 04/15/18 Rx [Neutra-Phos] Thiamine [Vitamin B1 Tab] 100 mg PO BID tab 04/15/18 Rx Allergies/Adverse Reactions: Allergies Allergy/AdvReac Type Severity Reaction Status Date / Time acetaminophen [From Percocet] Allergy RASH Verified 04/10/18 16:16 aspirin Allergy RASH Verified 04/10/18 16:16 oxycodone HCl [From Percocet] Allergy RASH Verified 04/10/18 16:16 Penicillins Allergy RASH Verified 04/10/18 16:16 PAIN MEDICATIONS Allergy Uncoded 04/10/18 16:16 - Medications Medications: Current Medications Albuterol/Ipratropium (Duoneb 3 Mg/0.5 Mg (3 Ml) Ud) 3 ml IH RQ6 [facility] Last Admin: 04/15/18 13:16 Dose: Not Given Dextrose (Dextrose 50% Inj) 0 ml IV STAT PRN; Protocol PRN Reason: Hypoglycemia Protocol Dextrose (Glutose 15) 0 gm PO ONCE PRN; Protocol PRN Reason: Hypoglycemia Protocol Ferrous Sulfate (Feosol) 325 mg PO DAILY [facility] Last Admin: 04/15/18 11:00 Dose: 325 mg Folic Acid (Folic Acid) 1 mg PO DAILY [facility] Last Admin: 04/15/18 11:00 Dose: 1 mg Furosemide (Lasix) 40 mg PO DAILY [facility] Last Admin: 04/15/18 11:00 Dose: 40 mg Glucagon (Glucagen Diagnostic Kit) 0 mg IM STAT PRN; Protocol PRN Reason: Hypoglycemia Protocol Dextrose (Dextrose 5% In Water 1000 Ml) 1,000 mls @ 0 mls/hr IV .Q0M PRN; Protocol; Per Protocol PRN Reason: Hypoglycemia Protocol Insulin Aspart (Novolog) 0 unit SC ACHS [facility] PRN Reason: Protocol Last Admin: 04/15/18 12:30 Dose: 8 unit Insulin Glargine (Lantus) 8 unit SC Q12 [facility] Last Admin: 04/15/18 11:00 Dose: 8 unit Lactulose (Enulose) 20 gm PO TID [facility] Last Admin: 04/15/18 14:10 Dose: 20 gm Multivitamins (Hexavitamin) 1 tab PO DAILY [facility] Last Admin: 04/15/18 11:00 Dose: 1 tab Mupirocin (Bactroban Ointment) 22 gm EXT BID [facility] Last Admin: 04/15/18 11:00 Dose: 1 applic Potassium Phos/Sodium Phos (Neutra-Phos) 1 pkt PO TIDCC [facility] Last Admin: 04/15/18 14:10 Dose: 1 pkt Propranolol HCl (Inderal) 10 mg PO Q12 [facility] Last Admin: 04/15/18 11:00 Dose: 10 mg Saccharomyces Boulardii (Florastor) 250 mg PO DAILY [facility] Last Admin: 04/15/18 11:00 Dose: 250 mg Thiamine HCl (Vitamin B1 Tab) 100 mg PO BID [facility] Last Admin: 04/15/18 11:37 Dose: 100 mg Tramadol HCl (Ultram) 50 mg PO Q6 PRN PRN Reason: pain Last Admin: 04/13/18 18:26 Dose: 50 mg Results - Vital Signs Recent Vital Signs: Last Vital Signs Temp 98.2 F 04/15/18 15:05 Pulse 83 04/15/18 15:05 Resp 83 H 04/15/18 15:05 BP 122/74 04/15/18 15:05 Pulse Ox 20 L 04/15/18 15:05 - Labs Result Diagrams: 04/15/18 07:54 04/15/18 07:54 Labs: Laboratory Results - last 24 hr 04/14/18 04/15/18 04/15/18 21:32 02:12 05:57 WBC RBC Hgb Hct MCV MCH MCHC RDW Plt Count MPV Neut % (Auto) Lymph % (Auto) Jackson % (Auto) Eos % (Auto) Baso % (Auto) Neut # (Auto) Lymph # (Auto) Jackson # (Auto) Eos # (Auto) Baso # (Auto) Sodium Potassium Chloride Carbon Dioxide Anion Gap BUN Creatinine Est GFR ( Amer) Est GFR (Non-Af Amer) POC Glucose (mg/dL) 398 H 382 H 323 H Random Glucose Hemoglobin A1c Calcium Total Bilirubin AST ALT Alkaline Phosphatase Ammonia Total Protein Albumin Globulin Albumin/Globulin Ratio Triglycerides Cholesterol LDL Cholesterol Direct HDL Cholesterol TSH 3rd Generation 04/15/18 04/15/18 04/15/18 07:54 07:54 07:54 WBC 1.1 L* RBC 2.53 L Hgb 8.8 L Hct 25.1 L MCV 98.9 MCH 34.9 H MCHC 35.3 RDW 16.3 H Plt Count 26 L* MPV 10.5 Neut % (Auto) 63.5 Lymph % (Auto) 29.7 Jackson % (Auto) 5.2 Eos % (Auto) 1.2 Baso % (Auto) 0.4 Neut # (Auto) 0.7 L Lymph # (Auto) 0.3 L Jackson # (Auto) 0.1 Eos # (Auto) 0.0 Baso # (Auto) 0.0 Sodium 133 Potassium 4.3 Chloride 100 Carbon Dioxide 29 Anion Gap 9 L BUN 9 Creatinine 0.6 L Est GFR ( Amer) > 60 Est GFR (Non-Af Amer) > 60 POC Glucose (mg/dL) Random Glucose 283 H Hemoglobin A1c 6.0 Calcium 8.2 L Total Bilirubin 4.0 H AST 77 H ALT 33 Alkaline Phosphatase 184 H Ammonia Total Protein 5.4 L Albumin 2.1 L Globulin 3.3 Albumin/Globulin Ratio 0.6 L Triglycerides 67 D Cholesterol 96 LDL Cholesterol Direct 39 HDL Cholesterol 24 L TSH 3rd Generation 3.45 04/15/18 04/15/18 04/15/18 11:07 11:12 16:09 WBC RBC Hgb Hct MCV MCH MCHC RDW Plt Count MPV Neut % (Auto) Lymph % (Auto) Jackson % (Auto) Eos % (Auto) Baso % (Auto) Neut # (Auto) Lymph # (Auto) Jackson # (Auto) Eos # (Auto) Baso # (Auto) Sodium Potassium Chloride Carbon Dioxide Anion Gap BUN Creatinine Est GFR ( Amer) Est GFR (Non-Af Amer) POC Glucose (mg/dL) 332 H 371 H Random Glucose Hemoglobin A1c Calcium Total Bilirubin AST ALT Alkaline Phosphatase Ammonia 172 H D Total Protein Albumin Globulin Albumin/Globulin Ratio Triglycerides Cholesterol LDL Cholesterol Direct HDL Cholesterol TSH 3rd Generation
[2018-04-15 18:32] VITALS: RESP 20; O2SAT 93
== END 2018-04-15 20:00 | DRG 441 ==
LOC: C.ER 16:03 → C.9E 17:57 → C.6T 22:00
PROVIDERS: ADMIT Internal Medicine Nephrology; ATTEND Internal Medicine Nephrology
DX: K72.90 Hepatic failure, unspecified without coma (principal); J18.9 Pneumonia, unspecified organism; D61.818 Other pancytopenia; K50.90 Crohn's disease, unspecified, without complications; K76.6 Portal hypertension; D68.9 Coagulation defect, unspecified; B18.2 Chronic viral hepatitis C; E11.40 Type 2 diabetes mellitus with diabetic neuropathy, unspecified; I10 Essential (primary) hypertension; J45.909 Unspecified asthma, uncomplicated; K74.60 Unspecified cirrhosis of liver; M17.12 Unilateral primary osteoarthritis, left knee; M81.0 Age-related osteoporosis without current pathological fracture; Z87.891 Personal history of nicotine dependence; D69.6 Thrombocytopenia, unspecified; Z79.4 Long term (current) use of insulin; R31.9 Hematuria, unspecified; D73.1 Hypersplenism